=== PATIENT | female | born 1940 | race Caucasian/White ===

== ENCOUNTER 2016-11-24 16:43 | Inpatient (IN) | payer OTHER, MEDICAID ==
[~2016-11-24] VITALS: Ht 167.6 cm; Wt 83.0 kg
--- NOTE | 2016-11-24 17:21 | REP ---
Clinical: Altered mental status . Findings: Age-related atrophy and microvascular ischemic changes are appreciated. The ventricles and sulci are symmetric. Aguero-white differentiation is maintained. There is no evidence for acute intracranial hemorrhage, mass/mass effect, pathology or infarction. No extra-axial fluid collection. Calvarium is intact. Paranasal sinuses and mastoid air cells are clear. Impression: Age related atrophy and microvascular ischemic changes. No acute intracranial hemorrhage, infarction, or mass/mass effect. Signed by Alvaro Gann MD 11/24/2016 05:12 P
--- NOTE | 2016-11-24 17:33 | REP ---
Clinical: Altered mental status. Comparison: None. Findings: Evidence of prior sternotomy and CABG. Cardiac silhouette is normal. Atherosclerotic changes to the thoracic aorta noted. Lung waldrop demonstrate chronic interstitial changes and findings to suggest mild chronic pulmonary vascular congestion. No acute consolidation, effusion, or pneumothorax. Skeletal structures intact. Impression: Chronic-appearing changes. No obvious acute cardiopulmonary process. Signed by Alvaro Gann MD 11/24/2016 05:24 P
[2016-11-24 17:52] LABS: BASO # 0.1 K/mm3 (0.0-0.2); BASO % 0.9 % (0.0-1.0); EOS # 0.2 K/mm3 (0.0-0.50); EOS % 2.2 % (0.0-3.0); LARGE UNSTAINED CELL # 0.3 K/mm3 (0.0-0.4); LARGE UNSTAINED CELL % 3.7 % (0.0-4.0); LYMPH # 2.6 K/mm3 (1.5-4.5); LYMPH % 26.8 % (24.0-44.0); MEAN CORPUSCULAR HEMOGLOBIN 31.9 pg (27.0-33.0); MEAN CORPUSCULAR HGB CONC 33.8 g/dl (32.0-36.5); MEAN CORPUSCULAR VOLUME 94.3 fl (80.0-96.0); MONO # 0.7 K/mm3 (0.0-0.8); MONO % 8.5 % (0.0-5.0); NEUTROPHILS % 57.9 % (36.0-66.0); PLATELET COUNT, AUTOMATED 298 k/mm3 (150-450); RED CELL DISTRIBUTION WIDTH 13.8 % (11.5-14.5); WHITE BLOOD COUNT 8.6 K/mm3 (4.0-10.0)
[2016-11-24 18:21] LABS: ALBUMIN 3.4 GM/DL (3.2-5.2); ALBUMIN/GLOBULIN RATIO 0.72 (1.00-1.93); ALKALINE PHOSPHATASE 91 U/L (45-117); ALT/SGPT 29 U/L (12-78); ANION GAP 11 MEQ/L (8-16); AST/SGOT 26 U/L (15-37); BILIRUBIN,DIRECT < 0.1 MG/DL (0.0-0.2); BILIRUBIN,TOTAL 0.2 MG/DL (0.2-1.0); BLOOD UREA NITROGEN 89 MG/DL (7-18); CALCIUM LEVEL 10.6 MG/DL (8.8-10.2); CARBON DIOXIDE LEVEL 36 MEQ/L (21-32); CHLORIDE LEVEL 87 MEQ/L (98-107); CREATININE FOR GFR 4.66 MG/DL (0.55-1.02); GLOMERULAR FILTRATION RATE 9.7 (>39); GLUCOSE, FASTING 309 MG/DL (83-110); SODIUM LEVEL 134 MEQ/L (136-145); TOTAL PROTEIN 8.1 GM/DL (6.4-8.2)
[2016-11-24 19:10] LABS: MAGNESIUM LEVEL 2.7 MG/DL (1.8-2.4)
[2016-11-24] MEDS ORDERED: GABAPENTIN 100 MG CAP As Ordered ONE (19:53)
[2016-11-24] MEDS ORDERED: LORazepam 1 MG TAB As Ordered ONE (19:54)
[2016-11-24] MEDS ORDERED: PLAV75TA38 PO (20:43)
[2016-11-24] MEDS ORDERED: MAGN400T5 PO (20:43)
[2016-11-24] MEDS ORDERED: ASPI1TAB PO (20:43)
[2016-11-24] MEDS ORDERED: AMLO10TA2 PO (20:43)
[2016-11-24] MEDS ORDERED: METO25TA PO (20:43)
[2016-11-24] MEDS ORDERED: GABA-279 PO (20:43)
[2016-11-24] MEDS ORDERED: LASI40TA PO (20:43)
[2016-11-24] MEDS ORDERED: CARV6.25 PO (20:43)
[2016-11-24] MEDS ORDERED: INSUH10VL SC (20:43)
[2016-11-24] MEDS ORDERED: CALC1CAP31 PO (20:43)
[2016-11-24] MEDS ORDERED: POTA10CA PO (20:43)
[2016-11-24] MEDS ORDERED: INSULANT SC (20:43)
[2016-11-24] MEDS ORDERED: CLON0.5T PO (20:49)
[2016-11-24] MEDS ORDERED: FAMO1TAB11 PO (20:49)
[2016-11-24] MEDS ORDERED: MIRA33504 PO (20:49)
[2016-11-24] MEDS ORDERED: ATOR1TAB19 PO (20:49)
[2016-11-24] MEDS ORDERED: VITA100066 PO (20:49)
[2016-11-24] MEDS ORDERED: HYDR-4266 PO (20:49)
[2016-11-24] MEDS ORDERED: ALBU17IN INH (20:49)
[2016-11-24] MEDS ORDERED: CYMB1CAP5 PO (20:49)
[2016-11-24] MEDS ORDERED: DEXTROSE 50% 50 ML SYRINGE IV PRN (21:30)
[2016-11-24] MEDS ORDERED: POTASSIUM CHLORIDE 10 MEQ SR TABLET PO ONE (21:30)
[2016-11-24] MEDS ORDERED: CIPROFLOXACIN 250 MG TAB PO ONE (21:30)
[2016-11-24] MEDS ORDERED: GLUCAGON FOR INJ 1 MG VIAL (J1610) SC PRN (21:30)
[2016-11-24] MEDS ORDERED: GLUCOSE 4 GM CHEW TABLET PO PRN (21:30)
[2016-11-24 22:30] VITALS: BP 185/75
--- NOTE | 2016-11-24 23:29 | HPE ---
DATE OF ADMISSION: 11/24/2016 PRIMARY CARE PHYSICIAN: Dr. Kelley VENDING MACHINE ASSEMBLER: Dr. Kelley CHIEF COMPLAINT: "I have been sick with some kind of virus for the past 9 days. " HISTORY OF THE PRESENT ILLNESS: A 76-year-old female with a history of chronic kidney disease, stage V, with right AV fistula, not on hemodialysis, hypertension, hypercholesterolemia, diabetes, depression, coronary artery disease, myocardial infarction (MD), transient ischemic attack (TIA), tonsillectomy, appendectomy, adenoidectomy, right AV arm fistula, coronary artery bypass graft (CABG), presents to the emergency room, sent by Dr. Kelley due to increased lethargy, abdominal pain, dysuria, urgency and frequency, left lower quadrant abdominal pain and complaints of myalgias for the past 9 days. The patient's neighbor had similar symptoms and was given aspirin by his primary care physician. The patient states that her abdominal pain is in the left lower quadrant, radiation across the back. She has been having dysuria, urgency, frequency for the past 3 days. No fever or chills. "I caught some kind of virus in town. I called the hospital three times." "A week ago I was having diarrhea, " on and off, 3-4 times a day and stomach pains, decrease in appetite, no decrease in oral intake. The patient was found to have some lactic acidosis at 2.1. At her baseline, creatinine is stage V. No white count. Slightly hypokalemic. Urinalysis (UA) was negative for leukocyte esterase, positive for nitrites, 7 WBCs and 1+ bacteria. Imaging study: Chest x-ray showed chronic appearing changes, no acute cardiopulmonary process. The patient's diarrhea has subsided. CT of the head shows no acute intracranial hemorrhage, infarct or mass effect. Hospitalist service was called for evaluation of increased lethargy, abdominal pain and altered mental status. PAST MEDICAL HISTORY: Chronic kidney disease, stage V. Right AV arm fistula. Hypercholesterolemia. Hypertension. Diabetes. Depression. TIA. Coronary artery disease. MD. Renal failure without dialysis. PAST SURGICAL HISTORY: Coronary artery bypass graft (CABG). Tonsillectomy. Adenoidectomy. Appendectomy. Fistula in the right arm. ALLERGIES: CODEINE, PENICILLIN causing hives. HOME MEDICATIONS: - Coreg 6.25 mg twice a day - metolazone 2.5 mg daily - potassium 20 mEq daily - amlodipine 10 mg daily - calcitriol 0.25 mcg daily - Lasix 40 mg twice a day, two tablets - aspirin 81 mg daily - magnesium oxide 400 mg daily - Lantus insulin 75 units daily - Plavix 75 mg daily - gabapentin 100 mg twice a day - Novolin R subcu 35 units three times a day with meals - Ventolin two puffs every 4-6 hours as needed - Tylenol 500 mg 1-2 tablets as needed - MiraLAX 17 grams as needed - clonazepam 0.5 mg twice a day - Cymbalta 30 mg daily - atorvastatin 10 mg daily - famotidine 20 mg twice a day - hydralazine 10 mg twice a day - vitamin D 5000 units daily SOCIAL HISTORY: Lives alone. Health care proxy: Alfa Mike. The patient states that she would not want intubation, do not intubate. No Medical Orders for Life-Sustaining Treatment (MOLST) form was signed. LIMITED DO NOT RESUSCITATE, trial of cardiopulmonary resuscitation. The patient is a former smoker. No alcohol use. Lives alone. REVIEW OF SYSTEMS: Per history of the present illness. Twelve point system otherwise negative. PHYSICAL EXAMINATION: Blood pressure 167/72, pulse 62, sinus, respiratory rate 18, temperature 97, pulse oximetry 100% on room air, 72.57 kg, 5 feet 6 inches tall. Generally, awake, alert, oriented to person and place, able to provide some history, disoriented to time, answering questions appropriately. Pupils are round and reactive. Extraocular muscles are intact. Face is symmetric. No jugular venous distention. No thyromegaly. Mid sternal scar, well healed. Lungs are clear to auscultation. No wheezing, rales, or rhonchi. Heart: S1, S2, sinus rhythm. Abdomen is soft, nontender, nondistended. Extremities: Trace edema. Skin: Warm and dry, well perfused. Neurological: Awake, alert, oriented to person and place, answering questions appropriately. Speech is fluent. Motor function is 5 out of 5 times four extremities. No sensory disturbance. White count 8.6, hemoglobin 12, hematocrit 37, platelet count 298, 57% neutrophils. Sodium 134, potassium 3, chloride 87, bicarbonate 36, BUN 89, creatinine 4.66, glucose 309, lactic acid 2.1, calcium of 10.6, magnesium 2.7, total CK 231, MB fraction 3.5, troponin 0.04, total protein 8.1, albumin 3.4, TSH of 2.01. Urine and blood cultures are pending. Chest x-ray: No acute cardiopulmonary process, chronic appearing changes. CT of the head: Age appropriate related atrophy. No acute hemorrhage, infarct, mass or mass effect. ASSESSMENT AND PLAN: This is a 76-year-old female with a history of transient ischemic attack, coronary artery disease, myocardial infarction, coronary artery bypass graft, renal failure, depression, no hemodialysis with right AV arm fistula, tonsillectomy, adenoidectomy, hypertension, diabetes, presents after being seen at Dr. Kelley's office, sent to the emergency room for evaluation of increased lethargy, belly pain and confusion, headache. CT of the head was unremarkable. She was afebrile. Complained of some dysuria, urgency and frequency, admitted for possible urinary tract infection (UTI). The patient will be admitted as an inpatient for the following issues, assigned to Dr. Gato Aaron. IMPRESSION: 1.Altered mental status. May be multifactorial. Patient will be evaluated for infectious etiology due to complaints of dysuria, abdominal pain. Will obtain a CT of the abdomen and pelvis and treat presumptively for urinary tract infection (UTI) with Cipro, renal dosing 250 mg twice a day. 2. end-stage renal disease, the patient is currently at baseline. Right AV arm fistula. Monitor intake and output, daily weight and consult nephrology in the morning.Chronic kidney disease, stage V, not on hemodialysis. Consult Dr. Kelley in the morning for chronic management. 3.Electrolyte abnormalities with low potassium. The patient will be given potassium supplementation. 4.Type 2 diabetes. Consistent carbohydrate diet. Insulin sliding scale. 5.Hypertension. Controlled. Continue amlodipine, Lasix. 6.History of coronary artery disease, coronary artery bypass graft. Continue on Plavix. 7.Hyperlipidemia. Continue on atorvastatin. 8.Diarrhea: GI panel. gentle fluid hydration. if negative GI panel, may give loperamide. Deep vein thrombosis (DVT) prophylaxis. On chronic Plavix. Continue with compression stockings. The patient will be admitted to Dr. Gato Aaron, hospitalist service, at 7:00 a.m. on 11/25/2016. [facility]
[2016-11-25] VITALS: BP 126/60; PULSE 54
[2016-11-25] MEDS ORDERED: POTASSIUM CHLORIDE 10 MEQ SR TABLET As Ordered ONE
[2016-11-25] MEDS: NS 1,000 ML IV SCH ×2 (00:05→13:40)
[2016-11-25 04:00] VITALS: BP 159/70; PULSE 54
--- NOTE | 2016-11-25 04:10 | REPUSA ---
CLINICAL HISTORY: Abdominal pain. TECHNIQUE: Multiple axial, sagittal and coronal CT images were obtained through the abdomen and pelvi s without administration of oral or IV contrast material. COMMENTS: Diffuse thickening of the wall of the bladder. Moderate large bowel fecal stasis. Uncomplicated clonic diverticulosis. Heavily calcified mitral valve. The liver is mildly enlarged without mass or defect. There is no intra or extrahepatic biliary ductal dilatation. The spleen is normal. The gallbladder is within normal limits. The pancreas is of normal contour and attenuation characteristics. There is no evidence of adrenal mass. The kidneys are normal in size, shape and configuration. No renal or ureteral calculi are identified. There is no hydroureter or hydronephrosis. There is no evidence for appendicitis. There is no bowel wall thickening. No evidence for small or la rge bowel obstruction. There is no evidence of abdominal ascites or lymphadenopathy. There is no evidence of intrinsic or extrinsic bladder mass. There is no pelvic ascites or lymphadeno kayli. Images of the lung bases show no evidence of pleural or parenchymal mass. There are no pleural effusi ons. The bony structures are free of lytic or blastic lesions. Multilevel degenerative changes are seen in volving the thoracolumbar spine. Scattered calcifications are seen involving the aorta and major branches compatible with atherosclero sis. IMPRESSION: Diffuse thickening of the wall of the bladder. Heavily calcified mitral valve. Moderate large bowel fecal stasis. Uncomplicated clonic diverticulosis. Thank you for your kind referral of this patient.
[2016-11-25] MEDS ORDERED: CIPROFLOXACIN 250 MG TAB PO SCH (06:00)
[2016-11-25 08:00] VITALS: BP 142/65
[2016-11-25] MEDS ORDERED: POTASSIUM CHLORIDE 10 MEQ SR TABLET PO SCH (09:00)
[2016-11-25] MEDS ORDERED: FUROSEMIDE 80 MG TAB PO SCH (09:00)
[2016-11-25] MEDS ORDERED: metOLazone 2.5 MG TAB PO SCH (09:00)
[2016-11-25] MEDS ORDERED: DULoxetine 20 MG CAP (CYMBALTA) PO SCH (09:00)
[2016-11-25] MEDS ORDERED: LEVEMIR (INSULIN DETEMIR) 1 UNITS/0.01ML SC SCH (09:00)
[2016-11-25] MEDS ORDERED: MAGNESIUM OXIDE 400 MG TAB (MAG-OX) PO SCH (09:00)
[2016-11-25] MEDS ORDERED: HEPARIN SOD (PORCINE) 5000 UNITS/ML VIAL SC SCH (09:00)
[2016-11-25 09:26] LABS: ALBUMIN 2.9 GM/DL (3.2-5.2); CALCIUM LEVEL 9.4 MG/DL (8.8-10.2); CREATININE FOR GFR 3.84 MG/DL (0.55-1.02); GLOMERULAR FILTRATION RATE 12.1 (>39); MAGNESIUM LEVEL 2.7 MG/DL (1.8-2.4); PHOSPHORUS LEVEL 4.7 MG/DL (2.5-4.9); POTASSIUM SERUM 3.5 MEQ/L (3.5-5.1)
[2016-11-25] MEDS ORDERED: HumaLOG INSULIN (NovoLOG) PER UNIT As Ordered ONE ×2 (09:51→12:57)
[2016-11-25] MEDS: HumaLOG INSULIN (NovoLOG) PER UNIT SC SCH ×4 (09:55→21:51)
--- NOTE | 2016-11-25 09:57 | ECGEPIP ---
Stationary ECG Study [facility] - ED Test Date: 2016-11-24 Pat Name: DEION JADE Department: Room: - Gender: F Reimbursement Coordinator: rubin : 1940 Requested By: Jennifer Robert Order Number: [id number] Reading MD: Jennifer Robert Measurements Intervals [place]der[place]ott Rate: 62 P: 47 MN: 169 QRS: 34 QRSD: 140 T: 21 QT: 476 QTc: 484 Interpretive Statements SINUS RHYTHM POSSIBLE LEFT ATRIAL ENLARGEMENT INTRAVENTRICULAR CONDUCTION DELAY LEFT VENTRICULAR HYPERTROPHY AND ST-T CHANGE VS ISCHEMIA INFERIOR MYOCARDIAL INFARCTION, PROBABLY OLD CLINICAL CORRELATION NO PRIOR FOR COMPARISON Electronically Signed On 11-25-2016 9:57:20 EST by Jennifer Robert
[2016-11-25] MEDS ORDERED: ALBUTEROL 90 MCG/ACT 8GM HFA INHALER INH PRN (10:30)
[2016-11-25] MEDS: CARVedilol 6.25 MG TAB PO SCH ×2 (11:57→21:51)
[2016-11-25] MEDS: GABAPENTIN 100 MG CAP PO SCH ×2 (11:59→21:52)
[2016-11-25 12:00] VITALS: BP 119/56
[2016-11-25] MEDS: amLODIPine 10 MG TAB PO SCH (12:01)
[2016-11-25] MEDS: VITAMIN D 1,000 INTERNATIONAL UNITS TABLET PO SCH (12:02)
[2016-11-25] MEDS: ASPIRIN 81 MG ENTERIC TAB PO SCH (12:02)
[2016-11-25] MEDS: CLOPIDOGREL 75 MG TAB PO SCH (12:02)
[2016-11-25] MEDS: FAMOTIDINE 20 MG TAB PO SCH ×2 (12:02→21:51)
[2016-11-25] MEDS: CALCITRIOL 0.25 MCG CAP (S0169) PO SCH (12:02)
[2016-11-25] MEDS: **hydrALAZINE HCL** 25 MG TAB PO SCH ×2 (12:03→21:52)
[2016-11-25] MEDS ORDERED: cefTRIAXone SOD 1 GM VIAL (J0696) As Ordered ONE (12:45)
[2016-11-25] MEDS: cefTRIAXone SOD 1 GM in D5W MINI-BAG PLUS 50 ML IV SCH (13:00)
[2016-11-25] MEDS: DULoxetine 30 MG CAP (CYMBALTA) PO SCH (13:04)
--- NOTE | 2016-11-25 13:24 | CR ---
DATE OF CONSULTATION: 11/25/2016 REQUESTING PHYSICIAN: Dr. Gato Aaron CONSULTING PHYSICIAN: Jose Roberto Hannah MD REASON FOR CONSULTATION: Management of acute kidney injury superimposed on chronic kidney disease, stage IV. CHIEF COMPLAINT: Patient was sent from the nephrology office yesterday because of confusion, dehydration and possible urinary tract infection. HISTORY OF PRESENT ILLNESS: Shanda Loco is a 76-year-old female with a past medical history of chronic kidney disease stage IV to at least stage V, history of right arm AV fistula, not started on dialysis yet, multiple other comorbidities including hypertension, diabetes, depression, coronary artery disease status post coronary artery bypass grafting (CABG), and other comorbidities as mentioned below. She presented to the clinic yesterday with increased lethargy, abdominal pain, dysuria, frequency and urgency with left lower quadrant abdominal pain, with muscle aches and pains. She also reported decreased appetite, poor oral intake, nausea and vomiting. She also reported having diarrhea about a week ago. The patient was also on a high dose of diuretics because of her lower extremity edema. The patient was presented to the emergency room for further management of possible UTI, dehydration, and volume depletion. She was admitted last night with acute kidney injury, started on IV fluid hydration and on IV antibiotics. Her preliminary blood cultures, gram stain is showing gram positive cocci in pairs, chains and clusters. She was found to have a BUN of 59 and creatinine of 4.6 on admission. The nephrology service was called for further management of acute kidney injury superimposed on chronic kidney disease. PAST MEDICAL HISTORY: Chronic kidney disease stage IV to early stage V. Hypertension. Diabetes mellitus type 2. Depression. History of transient ischemic attack (TIA). Coronary artery disease. History of myocardial infarction in the past. Hyperlipidemia. PAST SURGICAL HISTORY: Status post right upper arm AV fistula placement. Status post coronary artery bypass grafting. Status post tonsillectomy. Status post adenoidectomy. Status post appendectomy. ALLERGIES: 1. Patient is allergic to CODEINE. 2. PENICILLIN. HOME MEDICATIONS: Patient presented to the emergency room she was on: - Coreg 6.25 mg by mouth twice a day - metolazone 2.5 mg by mouth daily - potassium 20 mEq by mouth daily - amlodipine 10 mg by mouth daily - calcitriol 0.25 mcg by mouth daily - Lasix 80 mg by mouth twice a day - aspirin 81 mg daily - magnesium 400 mg daily - Lantus 75 units subcu daily - Plavix 75 mg daily - gabapentin 100 mg by mouth twice a day - Novolin R 35 units three times a day - Ventolin as needed - Tylenol as needed - MiraLAX 17 grams as needed - clonazepam 0.5 mg twice a day - Cymbalta 30 mg daily - atorvastatin 10 mg daily - famotidine 20 mg twice a day - hydralazine 10 mg twice a day - vitamin D 5000 units daily FAMILY HISTORY: No significant family history of end stage renal disease requiring hemodialysis. SOCIAL HISTORY: Patient lives alone. She is a former smoker. She denies any alcohol use or drug abuse. REVIEW OF SYSTEMS: CONSTITUTIONAL: Patient reported weakness, fatigue, being tired. EYES: She denies any blurry vision or double vision. ENT: She denies any dysphagia, odynophagia, or ear discharge. CARDIOVASCULAR: She denies any chest pain, palpitations. RESPIRATORY: She denies any cough or shortness of breath. GASTROINTESTINAL (GI): She reports a decreased appetite, nausea, vomiting and pain. GENITOURINARY (): She reports dysuria and increased frequency of the urine. HEMATOLOGIC/ONCOLOGIC: She denies any history of cancers. ENDOCRINE: She has a history of secondary hyperparathyroidism and diabetes mellitus type 2. PSYCH: She has a history of depression. SKIN: She denies any rashes or ulcers. All other review of systems is negative. PHYSICAL EXAMINATION: GENERAL: Patient is awake, alert and oriented times two, sitting in the bed in no apparent distress. VITAL SIGNS: Temperature is 96.6 degrees Fahrenheit. Blood pressure is 142/65. Pulse is 57. Respiratory rate of 18. Saturating 96% on nasal cannula. INTAKE AND OUTPUT: Urine output recorded so far since overnight is 1250 mL. Weight on the bed scale is 77.6 kg. HEAD/NECK EXAM: Extraocular muscles intact. Pupils equally round and reactive to light. Mucous membranes are moist. Neck is supple. There is no jugular venous distention (JVD). CARDIOVASCULAR: S1 and S2, regular rate. No murmur, rub or gallop. RESPIRATORY: Chest is clear to auscultation at the upper lung zones. Mild inspiratory crackles at the bases. Otherwise, no rhonchi. ABDOMEN: Soft. Positive bowel sounds. Mild tenderness in the left lower quadrant. No ascites. No organomegaly. EXTREMITIES: No clubbing or cyanosis. No edema. Pulses are 2+. FARMER GENERAL: No focal neurological deficit. Power is 5/5 in all extremities. SKIN: No rashes or ulcers. PSYCH: The patient is depressed at this time and tearful. LABORATORY REVIEW: CBC showed a WBC of 8.6, hemoglobin 12.5, platelets at 298. Urinalysis showed 2+ protein, 3+ glucose, positive nitrite. Leukocyte esterase was negative. BMP today morning showed sodium 140, potassium 3.5, chloride 93, bicarb 35, BUN 81, creatinine 3.84, which is better than yesterday, it was 4.6 yesterday. Lactic acid has improved to 1.3, it was 2.1 yesterday. Calcium is 9.4, phosphorous is 4.7, magnesium is 2.7, albumin is 2.9. Microbiology: Blood cultures preliminary gram stain showed gram positive cocci in pairs, chains and clusters. IMAGING: CAT scan of the abdomen and pelvis showed diffuse thickening of the wall of the bladder, heavily calcified mitral valve, moderate large bowel fecal stasis. Uncomplicated chronic diverticulosis. Chest x-ray done yesterday showed chronic abating changes. No obvious acute cardiopulmonary process. CURRENT INPATIENT MEDICATIONS: Patient is currently on: - Rocephin 1 gram IV every 24 hours - He is on NS at 60 mL an hour - Proventil as needed for shortness of breath - amlodipine 10 mg daily - aspirin 81 mg daily - Lipitor 10 mg at bedtime - calcitriol 0.25 mcg daily - Coreg 6.25 mg by mouth twice a day - ciprofloxacin has been stopped - Klonopin for anxiety - Plavix 75 mg by mouth daily - Cymbalta 30 mg by mouth daily - Pepcid 20 mg by mouth twice a day - She was on Lasix 80 mg by mouth twice a day, which I am stopping right now. - gabapentin 100 mg by mouth twice a day - hydralazine 25 mg by mouth twice a day - insulin sliding scale - She is magnesium oxide 400 mg by mouth daily, which is being stopped right now. - She was also on metolazone 2.5 mg by mouth daily, which is being stopped now. - Zofran 4 mg IV every 6 hours as needed nausea/vomiting - She got a dose of potassium chloride 40 mEq by mouth one dose last night. - She is on potassium chloride 10 mEq by mouth twice a day, which I am stopping because she is no longer on diuretics at this time. ASSESSMENT: 76-year-old female with past medical history of at late stage IV chronic kidney disease, hypertension, coronary artery disease, depression, diabetes mellitus type 2, hypertension, admitted this time because of confusion and dehydration, and acute kidney injury superimposed on chronic kidney disease stage IV. PLAN: 1. Metabolic encephalopathy, multifactorial, secondary to uremia, volume depletion and infection. Hold all the diuretics at this time. Continue gentle IV fluid hydration with NS at 60 mL an hour. The patient is growing gram positive cocci in pairs, chains and clusters. She has been started on IV Rocephin. Followup the culture and sensitivity and taper antibiotics as needed. 2. Acute kidney injury superimposed on chronic kidney disease, stage IV to at least stage V. Most likely secondary to dehydration and volume depletion. Torsemide and metolazone have been stopped. The patient is being hydrated. Her creatinine did show an improvement from 4.6 to 3.8 since overnight. Continue to monitor daily weight and intake and output. 3. Gram positive cocci bacteremia. Initial gram stain showed gram positive cocci. Full cultures are pending. She has been started on ceftriaxone. If needed, patient can be given a dose of vancomycin as well. 4. Hypertension. Blood pressure is acceptable at this time. Continue current dose of amlodipine 10 mg by mouth daily and Coreg 6.25 mg by mouth twice a day. 5. Depression and anxiety. Continue current dose of antidepressant medications. 6. Diabetes mellitus type 2. Continue the insulin sliding scale. Levemir has been stopped because the patient has a poor appetite at this time. 7. Constipation. The patient's CAT scan showed retention of stool in the colon. There was no diverticulitis. I am going to start the patient on lactulose and give her soap suds enemas as well. 8. Hyponatremia. Hyponatremia was secondary to volume depletion. Sodium has improved to 140 after IV fluid hydration. 9. Hypokalemia. Hypokalemia was secondary to aggressive diuresis. Diuretics have been held. Patient was given potassium overnight. Potassium level is 3.5, which is acceptable right now. I am stopping the daily potassium dose at this time. 10. Hypermagnesemia. It is secondary to chronic kidney disease and she is on oral magnesium as well. Hold magnesium and magnesium level will improve with IV fluid hydration and further improvement in the renal function. Thank you for involving us in the care of this patient. We shall be happy to follow the patient along with you tomorrow morning. Plan of care was discussed with the hospitalist team, Dr. Gato Aaron. MOS[facility]
--- NOTE | 2016-11-25 13:56 | IPNPDOC ---
Subjective Date Seen The patient was seen on 11/25/16. Subjective Chief Complaint/HPI The patient is a 76-year-old female admitted with a reason for visit of Altered Mental State. General: Reports: Malaise, Normal Appetite (poor appetite secondary to nausea) , Denies: Chills, Fatigue, Night Sweats, Other Symptoms, ROS Unobtainable Constitutional: Reports: Malaise, Denies: Chills, Fatigue, Fever, Lethargy, Night Sweats, Other, Weakness, Weight Loss Eyes: Denies: Conjunctivae inflammation, Eyelid inflammation, Other, Pain, Redness, Vision change ENT: Denies: Dysphagia, Ear Pain, Epistaxis, Head Aches, Other Symptoms, Post Nasal Drip, Sinus Congestion, Sore Throat Skin: Denies: Breakdown, Bruising, Dry, Itching, Jaundice, Lesions, Nail Changes, Other, Rash Pulmonary: Reports: Cough, Denies: Dyspnea, Other Symptoms, Pleuritic Chest Pain Cardiovascular: Denies: Chest Pain, Edema, Lt Headedness, Orthopnea, Other Symptoms, Palpitations, Paroxysmal Noc. Dyspnea Gastrointestinal: Reports: Nausea, Denies: Abdominal Pain, Constipation, Diarrhea, Hematochezia, Melena, Other Symptoms, Vomiting Genitourinary: Reports: Dysuria, Frequency, Denies: Hematuria, Incontinence, Other Symptoms, Retention Objective Physical Examination General Exam: Positive: Alert, Cooperative, Mild Distress Eye Exam: Positive: Conjunctiva & lids normal, EOMI, PERRLA, Negative: Sclera icteric ENT Exam: Positive: Atraumatic, Mucous membr. moist/pink Neck Exam: Positive: Supple Chest Exam: Positive: Normal air movement, Other (bibasilar crepitus) Heart Exam: Positive: Rate Normal, Regular Rhythm Telemetry: Positive: No significant arrhythmia, Sinus Abdomen Exam: Positive: Normal bowel sounds, Soft, Negative: Tenderness Extremity Exam: Negative: Edema Psych Exam: Negative: Oriented x 3 Assessment /Plan Problems (1) Altered mental status Status: Acute Response to Treatment: Progressing Discussed With: Patient Problem Specific Plan: Monitor Clinically, Repeat Labs Problem Text: Multifactorial etiology. Likely toxic metabolic encephalopathy secondary to UTI complicated with uremia, further complicated with her multiple medical co-morbidities. (2) CKD (chronic kidney disease) Status: Acute Problem Specific Plan: Consult Specialist, Repeat Labs Problem Text: acute on chronic, baseline is CKD V, not on dialysis. Does have right AV fistula if needed. IV fluids, nephrology consultation appreciated. diuretics on hold (lasix, metolazone) (3) UTI (urinary tract infection) Status: Acute Discussed With: Patient Problem Specific Plan: Monitor Clinically, Repeat Labs Problem Text: Ceftriaxone Cultures pending (4) Positive blood culture Status: Acute Response to Treatment: Progressing Problem Specific Plan: Monitor Clinically, Repeat Labs Problem Text: Repeat cultures pending. Will administer vancomycin x 1. (5) HTN (hypertension) Status: Chronic Problem Specific Plan: Monitor Clinically Problem Text: norvasc, coreg, hydralazine with hold parameters. (6) Hypercholesteremia Status: Chronic Problem Text: lipitor (7) Diabetes Status: Chronic Problem Specific Plan: Repeat Labs Problem Text: holding basal insulin continue with insulin sliding scale (8) Depression Status: Chronic Problem Specific Plan: Monitor Clinically Problem Text: continue cymbalta (9) CAD (coronary artery disease) Status: Chronic Problem Text: coreg, plavix, lipitor, asa (10) TIA (transient ischemic attack) Status: Chronic Problem Text: continue asa, plavix Plan/VTE VTE Prophylaxis Ordered?: Yes Plan IVF: Continue Diet: Continue Current Activity: Continue Current Medications: Replete Electrolytes IV, Replete Electrolytes PO, Start Antibiotics Diagnostics: Repeat Labs in AM, Obtain Cultures VS, I&O, 24H, Per Vital Signs/I&O Vital Signs Date Time Temp Pulse Resp B/P Pulse Ox O2 Delivery O2 Flow Rate FiO2 11/25/16 08:00 96.6 57 18 142/65 96 Nasal Cannula 2.0 I&O- Last 24 Hours up to 6 AM 11/25/16 06:00 Intake Total 180 ml Output Total 850 ml Balance -670 ml Laboratory Data 24H LABS Laboratory Tests 2 11/24/16 17:36: Lactic Acid (Sepsis) 2.1*H 11/24/16 17:38: Aspartate Amino Transf (AST/SGOT) 26, Alanine Aminotransferase (ALT/SGPT) 29, Alkaline Phosphatase 91, Total Bilirubin 0.2, Direct Bilirubin < 0.1, Albumin 3.4, Albumin/Globulin Ratio 0.72L, Anion Gap 11, White Blood Count 8.6, Red Blood Count 3.93L, Hemoglobin 12.5, Hematocrit 37.1, Mean Corpuscular Volume 94.3, Mean Corpuscular Hemoglobin 31.9, Mean Corpuscular Hemoglobin Concent 33.8 , Red Cell Distribution Width 13.8, Platelet Count 298, Neutrophils (%) (Auto) 57.9, Lymphocytes (%) (Auto) 26.8, Monocytes (%) (Auto) 8.5H, Eosinophils (%) ( Auto) 2.2, Basophils (%) (Auto) 0.9, Neutrophils # (Auto) 5.0, Lymphocytes # ( Auto) 2.6, Monocytes # (Auto) 0.7, Eosinophils # (Auto) 0.2, Basophils # (Auto) 0.1, Calcium Level 10.6H, Creatine Kinase MB 3.5, Creatine Kinase MB Relative Index 1.51, Glomerular Filtration Rate 9.7L, Large Unclassified Cells # 0.3, Large Unclassified Cells % 3.7, Magnesium Level 2.7H, Thyroid Stimulating Hormone (TSH) 2.010, Total Creatine Kinase 231H, Total Protein 8.1, Troponin I 0.04 11/24/16 17:50: Urine Amorphous Sediment , Urine Appearance CLEAR, Urine Color YELLOW, Urine pH 7.0, Urine Specific [place] 1.008, Urine Protein 2+H, Urine Glucose (UA) 3+H, Urine Ketones NEGATIVE, Urine Urobilinogen 0.2, Urine Bilirubin NEGATIVE, Urine Leukocyte Esterase NEGATIVE, Urine Bacteria (Auto) 1+H, Urine Blood NEGATIVE, Urine Calcium Carbonate Cryst(Auto) , Urine Calcium Oxalate Cryst (Auto) , Urine Calcium Phosphate Annette (Auto) , Urine Cellular Casts , Urine Cystine Crystals , Urine Granular Casts (Auto) , Urine Hyaline Casts (Auto) 0, Urine Leucine Crystals , Urine Mucus (Auto) , Urine Nitrite POSITIVE, Urine Oval Fat Bodies (Auto) , Urine RBC (Auto) 0, Urine Renal Epithelial Cells , Urine Sperm ( Auto) , Urine Squamous Epithelial Cells 2, Urine Transitional Epithelial Cells , Urine Trichomonas (Auto) , Urine Triple Phosphate Cryst (Auto) , Urine Tyrosine Crystals , Urine Uric Acid Crystals (Auto) , Urine WBC (Auto) 7H, Urine Waxy Casts (Auto) , Urine Yeast-Like Cells (Auto) 11/25/16 06:18: Bedside Glucose (Misc Panel) 136H 11/25/16 08:57: Albumin 2.9L, Blood Urea Nitrogen 81H, Creatinine 3.84H, Sodium Level 140, Potassium Level 3.5, Chloride Level 93L, Carbon Dioxide Level 35H, Anion Gap 12 , Calcium Level 9.4, Glomerular Filtration Rate 12.1L, Lactic Acid (Sepsis) 1.3 , Magnesium Level 2.7H, Phosphorus Level 4.7 CBC/BMP Laboratory Tests 11/24/16 17:38 Red Blood Count 3.93 L, Mean Corpuscular Volume 94.3, Mean Corpuscular Hemoglobin 31.9, Mean Corpuscular Hemoglobin Concent 33.8, Red Cell Distribution Width 13.8, Neutrophils (%) (Auto) 57.9, Lymphocytes (%) (Auto) 26.8, Monocytes (%) (Auto) 8.5 H, Eosinophils (%) (Auto) 2.2, Basophils (%) ( Auto) 0.9, Neutrophils # (Auto) 5.0, Lymphocytes # (Auto) 2.6, Monocytes # (Auto ) 0.7, Eosinophils # (Auto) 0.2, Basophils # (Auto) 0.1 11/25/16 08:57 Anion Gap 12 Microbiology Microbiology 11/24/16 Blood Culture, Received Pending 11/24/16 Blood Culture, Received Pending 11/24/16 Urine Culture, Received Pending ARLEY ROJO MD Nov 25, 2016 10:18
[2016-11-25] MEDS ORDERED: VANCOMYCIN HCL 1,000 MG, VIAL MATE ADAPTER 1 EACH in D5W 250 ML IV ONE (14:00)
[2016-11-25 14:20] VITALS: BP 138/62
--- NOTE | 2016-11-25 14:24 | PHACANCOPD ---
PHARMACY VANCOMYCIN DOSING Pt Demographics Demographics Patient Age:76 , Weight:77.600 , Gender: female Adjusted Body Weight Date: 11/25/16, Adjusted Body Weight: Kg Events Past 24 Hours Events Past 24 Hours: YES: Change in CrCl, NO: Dialysis, Diuretic Therapy, Elevation in WBC, Fever, Other, Pending Diagnostics, Pending Procedures Vancomycin Vancomycin indication: bacteremia Vancomycin Target Ranges: 15-20 mcg/ml Vancomycin Load Y/N: Yes Load Dose Date Time Vancomycin Load Dose: 1000mg Date: 11/25 Time: ~14:30 Vancomycin Dose Date: 11/25/16. Current Vancomycin Dose: [500mg IV q48h @10] Intermittent Dosing?: No Labs Labs Item Value Date Time White Blood Count 8.6 K/mm3 11/24/16 1738 Lactic Acid (Sepsis) 2.1 MMOL/L *H 11/24/16 1736 Lactic Acid (Sepsis) 1.3 MMOL/L 11/25/16 0857 Creatinine 4.66 MG/DL H 11/24/16 1738 Creatinine 3.84 MG/DL H 11/25/16 0857 Micro Microbiology 11/24/16 Blood Culture - Preliminary, Resulted 11/24/16 Blood Culture - Preliminary, Resulted 11/24/16 Urine Culture, Received Pending Creatinine Clearance Date:11/25/16. Creatinine Clearance: [12 ml/min]. Assessment and Plan Maintaining Current Dose?: Yes Reason for dose change: No Dose Change Pharmacist Note Pharmacist Note Date: 11/25/16. Pharmacist note: pt has been started on vancomycin for G+ bacteremia. She has stage V CKD, SCr is improved from yesterday. She has not been on vancomycin IV at our facility in the past. She will receive a 1g dose this afternoon and I will start 500mg q48h tomorrow morning. We will continue to monitor. Carlyle Parmar Pharm.D. Nov 25, 2016 14:24
--- NOTE | 2016-11-25 14:30 | EDDOCDS ---
Nurse's Notes [facility] Name: Deion Jade Age: 76 yrs Sex: Female : 1940 Arrival Date: 11/24/2016 Time: 16:43 Bed Admit Hold Private MD: Diagnosis: Altered mental status, unspecified;Unspecified kidney failure Presentation: 11/24 16:51 Presenting complaint: EMS states: Sick for 9 days, increased lethargy, belly pain, MACE. ck1 Adult Sepsis Screening: Patient has new or worsening altered mentation (1 point). Patient's respiratory rate is less than 22. Systolic blood pressure is greater than 100. Patient has a qSOFA score of 1- Negative Sepsis Screen. Suicide/Homicide risk assessment- the patient denies having any suicidal and/or homicidal ideations and does not present with any other emotional, behavioral or mental health complaints. Status: Patient is not a food service sales representatives or dependent. Transition of care: patient was received from [facility]. Care prior to arrival: Glucose check. 353. 16:51 Acuity: EREN Level 3 ck1 16:51 Method Of Arrival: Ambulance ck1 Triage Assessment: 17:20 General: Appears in no apparent distress, comfortable, Behavior is appropriate for age, ck1 cooperative. Pain: Location: right leg and left leg Pain currently is 8 out of 10 on a pain scale. Neurological: Level of Consciousness is awake, alert, Oriented to person, place, time. Cardiovascular: Rhythm is sinus rhythm. Respiratory: Respiratory effort is unlabored, Respiratory pattern is regular, symmetrical. Derm: Skin is pink, warm & dry. Musculoskeletal: Circulation, motion, and sensation intact Range of motion intact in all extremities. Historical: - Allergies: Codeine Sulfate; PENICILLINS; - Home Meds: 1. carvedilol 6.25 mg oral tab 1 tab 2 times per day 2. metolazone 2.5 mg oral tab 1 tab once daily 3. potassium chloride 20 mEq Oral TbER 1 tab once daily 4. amlodipine 10 mg Oral tab 1 tab once daily 5. calcitriol 0.25 mcg oral cap 1 cap once daily 6. Lasix 40 mg Oral tab 2 tabs 2 times per day 7. aspirin 81 mg Oral tab 1 tab once daily 8. magnesium oxide 400 mg Oral tab 400 mg daily 9. Lantus 100 unit/mL Sub-Q crtg daily 75 units 10. Plavix 75 mg Oral tab 1 tab once daily 11. gabapentin 100 mg Oral tab twice a day 12. Novolin R Sub-Q 35 units TID with meals 13. Ventolin HFA 90 mcg/actuation Nebulizer HFAA 2 puffs every 4-6 hours PRN 14. Tylenol 500 mg Oral 1-2 tabs PO PRN 15. Miralax 17 gram/dose Oral powd once daily PRN 16. clonazepam 0.5 mg Oral tab 2 times per day PRN 17. Cymbalta 30 mg Oral cpDR 1 cap once daily 18. atorvastatin 10 mg oral tab 1 tab once daily 19. famotidine 20 mg Oral tab 1 tab 2 times per day 20. hydralazine 10 mg Oral tab 1 tab 2 times per day 21. Vitamin D3 5,000 unit oral tab daily - PMHx: Hypercholesterolemia; Hypertension; Diabetes - IDDM: controlled; Depression; TIA; CT; Renal Failure w/o Dialysis; - PSHx: triple bypass; Tonsillectomy; Adenoidectomy; fistula placement right arm; - Social history: No barriers to communication noted, The patient speaks fluent Greenlandic, Speaks appropriately for age, Smoking status: Patient states former smoker of tobacco. - Family history: Not pertinent. - : The pt / caregiver states he / she is on anticoagulants: Plavix. Home medication list is obtained from the facility MAR. - Exposure Risk Screening:: None identified. Screenin:21 Screening information is obtained from the patient. Fall risk: At risk due to weakness. ck1 The following interventions are performed due to a positive Fall Risk Screen: Fall Risk is added to Special Handling on the patient Summary Screen. A Fall Risk Bracelet was applied to the patient. Side Rails are placed in the up position. A Call [place] is given with instruction to call for help when getting out of bed. Assistance ADL's: Requires assistance with meal preparation, this assistance is provided by Home Health Aides, bathing, assistance is provided by Home Health Aides, dressing, assistance is provided by Home Health Aides, toileting, assistance is provided by Home Health Aides, ambulation, assistance is provided by walker. housework, assistance is provided by Home Health Aides, medication administration, assistance is provided by Public Health nurses. Abuse/DV Screen: The patient / caregiver reports he/she is: not in a situation that causes fear, pain or injury. Nutritional screening: No deficits noted. Advance Directives: Currently, there is a health care proxy, Tiffany Mckeon (dtr). home support is adequate. Assessment: 17:22 General: see triage note. ck1 18:14 General: Appears in no apparent distress, to be sleeping. Behavior is appropriate for ck1 age, cooperative. Pain: Location: left leg and right leg. Neurological: Level of Consciousness is awake, alert, obeys commands, Oriented to person, place, time. Cardiovascular: Rhythm is sinus rhythm. Respiratory: Respiratory effort is even, unlabored, Respiratory pattern is regular, symmetrical. GI: No deficits noted. : Urine is cloudy. Derm: Skin is pink, warm & dry. 11/25 08:33 General: Appears rhythm note. SR/SB rate of 52 . [facility] Vital Signs: 11/24 16:38 Pulse 70 MON; Pulse Ox 95% ; ck1 16:39 BP 117 / 56 (auto/); ck1 16:54 BP 155 / 70 (auto/); ck1 16:56 BP 155 / 70; Pulse 61; Resp 18; Temp 97.0(O); Pulse Ox 98% on R/A; Weight 72.57 kg (R); nb2 Height 5 ft. 6 in. (167.64 cm) (R); Pain 7/10; 16:56 Pulse 60 MON; Pulse Ox 99% ; ck1 17:03 Pulse 62 MON; Pulse Ox 98% ; ck1 17:18 BP 164 / 67 (auto/); ck1 17:48 Pulse 66 MON; Pulse Ox 98% ; ck1 17:49 BP 167 / 71 (auto/); ck1 18:03 BP 167 / 72 (auto/); ck1 18:03 Pulse 62 MON; Pulse Ox 100% ; ck1 16:56 Body Mass Index 25.82 (72.57 kg, 167.64 cm) 2 Vitals: 16:56 Log In Time N/A - ambulance arrival. 2 ED Course: 16:45 Patient visited by Alexx Monson PCA. jrd 16:45 Patient moved to Waiting jrd 16:46 Mague Vizcaino,RN is Primary Nurse. jrd 16:46 Patient moved to 6 jrd 16:53 Triage Initiated ck1 16:56 Placed in gown. Bed in low position. Call light in reach. Side rails up X2. Cardiac nb2 monitor on. Pulse ox on. NIBP on. 17:22 The patient / caregiver is instructed regarding the plan of care and ED course. ck1 17:23 [facility] ke 17:24 Patient visited by Felix Davis FNP. ke 17:24 Patient visited by Felix Davis FNP. ke 17:25 CT Head Without Contrast Returned. EDMS 17:49 Patient visited by Felix Davis FNP. ke 17:51 Urine Culture Sent. ck1 17:51 UA Sent. ck1 17:52 BLOOD CULTURES Sent. ck1 17:52 Lactic Acid (Aguero tube on ice) Sent. ck1 17:52 Inserted saline lock: 20 gauge in left antecubital area and blood collected. The ck1 patient tolerated the procedure well. 18:01 Patient visited by Mechelle Arana. nb2 18:01 EKG done. (by ED staff). Reviewed by Felix FERNANDES. nb2 18:13 Patient visited by Mague Vizcaino RN. ck1 18:18 Chest, 1 View Returned. EDMS 18:43 Patient visited by Mague Vizcaino,NUNU. ck1 18:50 Primary Nurse role handed off by Mague Vizcaino,RN ck1 19:08 Patient visited by Felix Davis FNP. ke 19:10 Esha Waggoner,NUNU is Primary Nurse. cf2 19:10 Patient visited by Esha Waggoner RN. cf2 19:26 Notified nurse practitioner of lactic acid 2.1. sls1 19:29 Patient visited by Esha Waggoner,NUNU. cf2 19:53 Patient visited by Felix Davis FNP. ke 19:53 Maribell Jimenez is Hospitalizing Provider. ke 20:42 Patient name changed from Blitha\S\\S\Prashaw\S\ to Blitha\S\ \S\Prashaw. EDMS 20:42 Patient visited by Esha Waggoner,NUNU. cf2 20:43 [facility] Payment Agreement was scanned into [employer] and attached to record. ks16 21:20 Patient moved to Admit Hold sls1 22:21 Patient moved to 18 sls1 22:21 Patient moved to Admit Hold [facility] 11/25 04:11 CT ABD & PELVIS W/O CONTRAST Returned. EDMS 10:06 EKG-ADULT Returned. EDMS Administered Medications: 11/24 19:58 Drug: Gabapentin 300 mg [gabapentin 100 mg capsule (3 caps)] Route: PO; cf2 19:58 Drug: LORazepam 0.5 mg [lorazepam 1 mg tablet (0.5 tabs)] Route: PO; cf2 Order Results: Lab Order: CBC with Diff; SPEC'M 11/24/16 17:38 Test: WHITE BLOOD COUNT; Value: 8.6; Range: 4.0-10.0; Units: K/mm3; Status: F Test: RED BLOOD COUNT; Value: 3.93; Range: 4.00-5.40; Abnormal: Below low normal; Units: M/mm3; Status: F Test: HEMOGLOBIN; Value: 12.5; Range: 12.0-16.0; Units: g/dl; Status: F Test: HEMATOCRIT; Value: 37.1; Range: 36.0-47.0; Units: %; Status: F Test: MEAN CORPUSCULAR VOLUME; Value: 94.3; Range: 80.0-96.0; Units: fl; Status: F Test: MEAN CORPUSCULAR HEMOGLOBIN; Value: 31.9; Range: 27.0-33.0; Units: pg; Status: F Test: MEAN CORPUSCULAR HGB CONC; Value: 33.8; Range: 32.0-36.5; Units: g/dl; Status: F Test: RED CELL DISTRIBUTION WIDTH; Value: 13.8; Range: 11.5-14.5; Units: %; Status: F Test: PLATELET COUNT, AUTOMATED; Value: 298; Range: 150-450; Units: k/mm3; Status: F Test: NEUTROPHILS %; Value: 57.9; Range: 36.0-66.0; Units: %; Status: F Test: LYMPH %; Value: 26.8; Range: 24.0-44.0; Units: %; Status: F Test: MONO %; Value: 8.5; Range: 0.0-5.0; Abnormal: Above high normal; Units: %; Status: F Test: EOS %; Value: 2.2; Range: 0.0-3.0; Units: %; Status: F Test: BASO %; Value: 0.9; Range: 0.0-1.0; Units: %; Status: F Test: LARGE UNSTAINED CELL %; Value: 3.7; Range: 0.0-4.0; Units: %; Status: F Test: NEUTROPHILS #; Value: 5.0; Range: 1.8-7.7; Units: K/mm3; Status: F Test: LYMPH #; Value: 2.6; Range: 1.5-4.5; Units: K/mm3; Status: F Test: MONO #; Value: 0.7; Range: 0.0-0.8; Units: K/mm3; Status: F Test: EOS #; Value: 0.2; Range: 0.0-0.50; Units: K/mm3; Status: F Test: BASO #; Value: 0.1; Range: 0.0-0.2; Units: K/mm3; Status: F Test: LARGE UNSTAINED CELL #; Value: 0.3; Range: 0.0-0.4; Units: K/mm3; Status: F Lab Order: Cardiac Injury Profile; [facility]' 11/24/16 17:38 Test: CPK CREATINE PHOSPHOKINASE; Value: 231; Range: 26-192; Abnormal: Above high normal; Units: U/L; Status: F Test: CK-MB VALUE MASS; Value: 3.5; Range: 0.0-3.6; Units: NG/ML; Status: F Test: MB/CK RELATIVE INDEX; Value: 1.51; Range: < OR =4; Status: F Test Note: ; DIAGNOSIS CRITERIA MMB ng/ml Relative Index (RI) NON-AMI < or = 5 N/A AGUERO ZONE > 5 < or = 4 AMI > 5 > 4 Lab Order: Liver Profile; SPEC' 11/24/16 17:38 Test: AST/SGOT; Value: 26; Range: 15-37; Units: U/L; Status: F Test: ALT/SGPT; Value: 29; Range: 12-78; Units: U/L; Status: F Test: ALKALINE PHOSPHATASE; Value: 91; Range: 45-117; Units: U/L; Status: F Test: BILIRUBIN,TOTAL; Value: 0.2; Range: 0.2-1.0; Units: MG/DL; Status: F Test: BILIRUBIN,DIRECT; Value: < 0.1; Range: 0.0-0.2; Units: MG/DL; Status: F Test: TOTAL PROTEIN; Value: 8.1; Range: 6.4-8.2; Units: GM/DL; Status: F Test: ALBUMIN; Value: 3.4; Range: 3.2-5.2; Units: GM/DL; Status: F Test: ALBUMIN/GLOBULIN RATIO; Value: 0.72; Range: 1.00-1.93; Abnormal: Below low normal; Status: F Lab Order: MED Profile; [facility]' 11/24/16 17:38 Test: GLUCOSE, FASTING; Value: 309; Range: 83-110; Abnormal: Above high normal; Units: MG/DL; Status: F Test: BLOOD UREA NITROGEN; Value: 89; Range: 7-18; Abnormal: Above high normal; Units: MG/DL; Status: F Test: CREATININE FOR GFR; Value: 4.66; Range: 0.55-1.02; Abnormal: Above high normal; Units: MG/DL; Status: F Test: GLOMERULAR FILTRATION RATE; Value: 9.7; Range: >39; Abnormal: Below low normal; Status: F Test: SODIUM LEVEL; Value: 134; Range: 136-145; Abnormal: Below low normal; Units: MEQ/L; Status: F Test: POTASSIUM SERUM; Value: 3.0; Range: 3.5-5.1; Abnormal: Below low normal; Units: MEQ/L; Status: F Test: CHLORIDE LEVEL; Value: 87; Range: 98-107; Abnormal: Below low normal; Units: MEQ/L; Status: F Test: CARBON DIOXIDE LEVEL; Value: 36; Range: 21-32; Abnormal: Above high normal; Units: MEQ/L; Status: F Test: ANION GAP; Value: 11; Range: 8-16; Units: MEQ/L; Status: F Test: CALCIUM LEVEL; Value: 10.6; Range: 8.8-10.2; Abnormal: Above high normal; Units: MG/DL; Status: F Test Note: ; Units are mL/min/1.73 m2 Chronic Kidney Disease Staging per NKF: Stage I & II GFR >=60 Normal to Mildly Decreased Stage III GFR 30-59 Moderately Decreased Stage IV GFR 15-29 Severely Decreased Stage V GFR <15 Very Little GFR Left ESRD GFR <15 on DISTRIBUTION AGENT Lab Order: Thyroid Stimulating Hormone; SPEC11/24/16 17:38 Test: THYROID STIMULATING HORMONE; Value: 2.010; Range: 0.358-3.740; Units: uIU/ML; Status: F Lab Order: Troponin; SPEC11/24/16 17:38 Test: TROPONIN I; Value: 0.04; Range: < 0.10; Units: NG/ML; Status: F Test Note: ; Troponin I Reference Interval for [employer] LOCI: 99th Percentile= 0.00-0.045 ng/ml Risk Stratification: <= 0.10 ng/ml Decreased Risk for Adverse Clinical Events. 0.10-1.50 ng/ml Increased Risk for Adverse Clinical Events. Evaluation of additional criterion and/or repeat testing in 2-6 hours is suggested to rule out myocardial damage. >= 1.50 ng/ml Indicative of Myocardial Injury. Lab Order: -Blood Culture; SPEC11/24/16 17:41 Test: BLOOD CULTURE; Value: DATE POSITIVE DETECTED 11/25/16; Status: F Test: BLOOD CULTURE; Value: EXTERNAL GS (REQUIRED!!!) GRAM POSITIVE COCCI IN CLUSTERS; Status: F Lab Order: Lactic Acid (Aguero tube on ice); SPEC'11/24/16 17:36 Test: LACTIC ACID SEPSIS PROTOCOL; Value: 2.1; Range: 0.4-2.0; Abnormal: Above upper panic limits; Units: MMOL/L; Status: F Lab Order: UA; SPEC11/24/16 17:50 Test: APPEARANCE, URINE; Value: CLEAR; Range: CLEAR; Status: F Test: COLOR, URINE; Value: YELLOW; Range: YELLOW; Status: F Test: PH,URINE; Value: 7.0; Range: 5.0-9.0; Units: UNITS; Status: F Test: SPECIFIC GRAVITY URINE AUTO; Value: 1.008; Range: 1.002-1.035; Status: F Test: PROTEIN, URINE AUTO; Value: 2+; Range: NEGATIVE; Abnormal: Above high normal; Units: mg/dL; Status: F Test: GLUCOSE, URINE (UA) AUTO; Value: 3+; Range: NEGATIVE; Abnormal: Above high normal; Units: mg/dL; Status: F Test: KETONE, URINE AUTO; Value: NEGATIVE; Range: NEGATIVE; Units: mg/dL; Status: F Test: UROBILINOGEN, URINE AUTO; Value: 0.2; Range: 0.0-2.0; Units: mg/dL; Status: F Test: BILIRUBIN, URINE AUTO; Value: NEGATIVE; Range: NEGATIVE; Status: F Test: NITRITE, URINE AUTO; Value: POSITIVE; Range: NEGATIVE; Status: F Test: LEUKOCYTE ESTERASE, URINE AUTO; Value: NEGATIVE; Range: NEGATIVE; Status: F Test: BLOOD, URINE BLOOD; Value: NEGATIVE; Range: NEGATIVE; Status: F Test: WBC, URINE AUTO; Value: 7; Range: 0-3; Abnormal: Above high normal; Units: /HPF; Status: F Test: RBC, URINE AUTO; Value: 0; Range: 0-3; Units: /HPF; Status: F Test: BACTERIA, URINE AUTO; Value: 1+; Range: NEGATIVE; Abnormal: Above high normal; Status: F Test: SQUAMOUS EPITHELIAL CELL UR AU; Value: 2; Range: 0-6; Units: /HPF; Status: F Test: HYALINE CAST, URINE AUTO; Value: 0; Range: 0-1; Units: /LPF; Status: F Lab Order: BLOOD CULTURES; SPEC'M 11/24/16 17:38 Test: BLOOD CULTURE; Value: DATE POSITIVE DETECTED 11/25/16; Status: F Test: BLOOD CULTURE; Value: EXTERNAL GS (REQUIRED!!!); Status: F Test: BLOOD CULTURE; Value: GRAM POSITIVE COCCI IN PAIRS, CHAINS AND CLUSTERS; Status: F Test: BLOOD CULTURE; Value: GRAM STAIN CALLED BY JESU; Status: F Test: BLOOD CULTURE; Value: GRAM STAIN CALLED TO CL RB; Status: F Test: BLOOD CULTURE; Value: DATE GRAM STAIN CALLED 11/25/16; Status: F Test: BLOOD CULTURE; Value: TIME GRAM STAIN CALLED 1151; Status: F Lab Order: MAGNESIUM LEVEL; SPEC'M 11/24/16 17:38 Test: MAGNESIUM LEVEL; Value: 2.7; Range: 1.8-2.4; Abnormal: Above high normal; Units: MG/DL; Status: F Lab Order: Fingerstick Blood Sugar; [facility] 11/25/16 06:18 Test: BEDSIDE GLUCOSE; Value: 136; Range: 83-110; Abnormal: Above high normal; Units: MG/DL; Status: F Lab Order: RENAL PROFILE; [facility] 11/25/16 08:57 Test: GLUCOSE, FASTING; Value: 135; Range: 83-110; Abnormal: Above high normal; Units: MG/DL; Status: F Test: BLOOD UREA NITROGEN; Value: 81; Range: 7-18; Abnormal: Above high normal; Units: MG/DL; Status: F Test: CREATININE FOR GFR; Value: 3.84; Range: 0.55-1.02; Abnormal: Above high normal; Units: MG/DL; Status: F Test: GLOMERULAR FILTRATION RATE; Value: 12.1; Range: >39; Abnormal: Below low normal; Status: F Test: SODIUM LEVEL; Value: 140; Range: 136-145; Units: MEQ/L; Status: F Test: POTASSIUM SERUM; Value: 3.5; Range: 3.5-5.1; Units: MEQ/L; Status: F Test: CHLORIDE LEVEL; Value: 93; Range: 98-107; Abnormal: Below low normal; Units: MEQ/L; Status: F Test: CARBON DIOXIDE LEVEL; Value: 35; Range: 21-32; Abnormal: Above high normal; Units: MEQ/L; Status: F Test: ANION GAP; Value: 12; Range: 8-16; Units: MEQ/L; Status: F Test: CALCIUM LEVEL; Value: 9.4; Range: 8.8-10.2; Units: MG/DL; Status: F Test: PHOSPHORUS LEVEL; Value: 4.7; Range: 2.5-4.9; Units: MG/DL; Status: F Test: ALBUMIN; Value: 2.9; Range: 3.2-5.2; Abnormal: Below low normal; Units: GM/DL; Status: F Test Note: ; Units are mL/min/1.73 m2 Chronic Kidney Disease Staging per NKF: Stage I & II GFR >=60 Normal to Mildly Decreased Stage III GFR 30-59 Moderately Decreased Stage IV GFR 15-29 Severely Decreased Stage V GFR <15 Very Little GFR Left ESRD GFR <15 on DISTRIBUTION AGENT Lab Order: MAGNESIUM LEVEL; [facility] 11/25/16 08:57 Test: MAGNESIUM LEVEL; Value: 2.7; Range: 1.8-2.4; Abnormal: Above high normal; Units: MG/DL; Status: F Lab Order: LACTIC ACID LEVEL, LACTATE; [facility]11/25/16 08:57 Test: LACTIC ACID SEPSIS PROTOCOL; Value: 1.3; Range: 0.4-2.0; Units: MMOL/L; Status: F Lab Order: Fingerstick Blood Sugar; [facility]11/25/16 12:15 Test: BEDSIDE GLUCOSE; Value: 285; Range: 83-110; Abnormal: Above high normal; Units: MG/DL; Status: F Radiology Order: CT Head Without Contrast Test: CT Head Without Contrast REASON FOR EXAMINATION: altered; Clinical: Altered mental status .; ; Findings:; Age-related atrophy and microvascular ischemic changes are appreciated. The; ventricles and sulci are symmetric. Aguero-white differentiation is maintained.; There is no evidence for acute intracranial hemorrhage, mass/mass effect,; pathology or infarction. No extra-axial fluid collection. Calvarium is intact.; Paranasal sinuses and mastoid air cells are clear.; ; Impression:; Age related atrophy and microvascular ischemic changes.; No acute intracranial hemorrhage, infarction, or mass/mass effect.; ; ; Signed by; Alvaro Gann MD 11/24/2016 05:12 P; Radiology Order: Chest, 1 View Test: Chest, 1 View REASON FOR EXAMINATION: alterd; Clinical: Altered mental status.; ; Comparison: None.; ; Findings: Evidence of prior sternotomy and CABG. Cardiac silhouette is normal.; Atherosclerotic changes to the thoracic aorta noted. Lung waldrop demonstrate; chronic interstitial changes and findings to suggest mild chronic pulmonary; vascular congestion. No acute consolidation, effusion, or pneumothorax.; Skeletal structures intact.; ; Impression:; Chronic-appearing changes. 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; : 1940 Requested By: Jennifer Robert; Order Number: [id number] Reading MD: Jennifer Robert; Measurements; Intervals [place]; Rate: 62 P: 47; IN: 169 QRS: 34; QRSD: 140 T: 21; QT: 476; QTc: 484; Interpretive Statements; SINUS RHYTHM; POSSIBLE LEFT ATRIAL ENLARGEMENT; INTRAVENTRICULAR CONDUCTION DELAY; LEFT VENTRICULAR HYPERTROPHY AND ST-T CHANGE VS ISCHEMIA; INFERIOR MYOCARDIAL INFARCTION, PROBABLY OLD; CLINICAL CORRELATION; NO PRIOR FOR COMPARISON; Electronically Signed On 11-25-2016 9:57:20 EST by Jennifer Robert; Radiology Order: CT ABD & PELVIS W/O CONTRAST Test: CT ABD & PELVIS W/O CONTRAST REASON FOR EXAMINATION: LEFT LOWER QUADRANT ABD PAIN RADIATING TO BACK, DYSURIA; ; CLINICAL HISTORY: Abdominal pain.; TECHNIQUE: Multiple axial, sagittal and coronal CT images were obtained through the abdomen and pelvi; s without administration of oral or IV contrast material.; COMMENTS:; Diffuse thickening of the wall of the bladder.; Moderate large bowel fecal stasis.; Uncomplicated clonic diverticulosis.; Heavily calcified mitral valve.; The liver is mildly enlarged without mass or defect. There is no intra or extrahepatic biliary ductal; dilatation. The spleen is normal. The gallbladder is within normal limits. The pancreas is of normal; contour and attenuation characteristics. There is no evidence of adrenal mass.; The kidneys are normal in size, shape and configuration. No renal or ureteral calculi are identified.; There is no hydroureter or hydronephrosis.; There is no evidence for appendicitis. There is no bowel wall thickening. No evidence for small or la; rge bowel obstruction. There is no evidence of abdominal ascites or lymphadenopathy.; There is no evidence of intrinsic or extrinsic bladder mass. There is no pelvic ascites or lymphadeno; kayli.; Images of the lung bases show no evidence of pleural or parenchymal mass. There are no pleural effusi; ons.; The bony structures are free of lytic or blastic lesions. Multilevel degenerative changes are seen in; volving the thoracolumbar spine.; Scattered calcifications are seen involving the aorta and major branches compatible with atherosclero; sis.; IMPRESSION:; Diffuse thickening of the wall of the bladder.; Heavily calcified mitral valve.; Moderate large bowel fecal stasis.; Uncomplicated clonic diverticulosis.; Thank you for your kind referral of this patient.; ; Outcome: : CT Study completed. 19:54 Decision to Hospitalize by Provider. 11/25 14:28 Patient left the ED. dsf Signatures: Dispatcher [employer] EDMS Rodri Loo,RN RN k Felix Davis, MAGAZINE EDITOR MAGAZINE EDITOR Mague CarvajalRN RN ck1 Ligia HuberRN RN dsf Annel Zamora RN RN sls1 Alexx Monson, ADDICTIONS COUNSELOR ADDICTIONS COUNSELOR Moni Potter, Reg Reg ks16 Esha WaggonerRN RN cf2 Mechelle Arana2 Corrections: (The following items were deleted from the chart) 11/24 17:20 17:05 PMHx: Renal Failure with Dialysis; 17:20 17:05 PSHx: Unable to obtain; [facility] 19:01 18:50 MAGNESIUM LEVEL+LAB sent. [facility] EDTN MTDD
--- NOTE | 2016-11-25 14:30 | EDDOCDS ---
Physician Documentation [facility] Name: Shanda Loco Age: 76 yrs Sex: Female : 1940 Arrival Date: 11/24/2016 Time: 16:43 Bed Admit Hold Private MD: Disposition: 11/24/16 19:54 Hospitalization ordered by Maribell Jimenez for Inpatient Admission. Preliminary diagnosis are Altered mental status, unspecified, Unspecified kidney failure. - Bed requested for [facility] (Former[facility]). - Status is Inpatient Admission. dsf - Condition is Stable. - Problem is an ongoing problem. - Symptoms are unchanged. Historical: - Allergies: Codeine Sulfate; PENICILLINS; - Home Meds: 1. carvedilol 6.25 mg oral tab 1 tab 2 times per day 2. metolazone 2.5 mg oral tab 1 tab once daily 3. potassium chloride 20 mEq Oral TbER 1 tab once daily 4. amlodipine 10 mg Oral tab 1 tab once daily 5. calcitriol 0.25 mcg oral cap 1 cap once daily 6. Lasix 40 mg Oral tab 2 tabs 2 times per day 7. aspirin 81 mg Oral tab 1 tab once daily 8. magnesium oxide 400 mg Oral tab 400 mg daily 9. Lantus 100 unit/mL Sub-Q crtg daily 75 units 10. Plavix 75 mg Oral tab 1 tab once daily 11. gabapentin 100 mg Oral tab twice a day 12. Novolin R Sub-Q 35 units TID with meals 13. Ventolin HFA 90 mcg/actuation Nebulizer HFAA 2 puffs every 4-6 hours PRN 14. Tylenol 500 mg Oral 1-2 tabs PO PRN 15. Miralax 17 gram/dose Oral powd once daily PRN 16. clonazepam 0.5 mg Oral tab 2 times per day PRN 17. Cymbalta 30 mg Oral cpDR 1 cap once daily 18. atorvastatin 10 mg oral tab 1 tab once daily 19. famotidine 20 mg Oral tab 1 tab 2 times per day 20. hydralazine 10 mg Oral tab 1 tab 2 times per day 21. Vitamin D3 5,000 unit oral tab daily - PMHx: Hypercholesterolemia; Hypertension; Diabetes - IDDM: controlled; Depression; TIA; [place]; Renal Failure w/o Dialysis; - PSHx: triple bypass; Tonsillectomy; Adenoidectomy; fistula placement right arm; - Social history: No barriers to communication noted, The patient speaks fluent [place], Speaks appropriately for age, Smoking status: Patient states former smoker of tobacco. - Family history: Not pertinent. - : The pt / caregiver states he / she is on anticoagulants: Plavix. Home medication list is obtained from the facility DEC. - Exposure Risk Screening:: None identified. Vital Signs: 11/24 16:38 Pulse 70 MON; Pulse Ox 95% ; ck1 16:39 BP 117 / 56 (auto/); ck1 16:54 BP 155 / 70 (auto/); ck1 16:56 BP 155 / 70; Pulse 61; Resp 18; Temp 97.0(O); Pulse Ox 98% on R/A; Weight 72.57 kg / nb2 159.99 lbs (R); Height 5 ft. 6 in. (167.64 cm) (R); Pain 7/10; 16:56 Pulse 60 MON; Pulse Ox 99% ; ck1 17:03 Pulse 62 MON; Pulse Ox 98% ; ck1 17:18 BP 164 / 67 (auto/); ck1 17:48 Pulse 66 MON; Pulse Ox 98% ; ck1 17:49 BP 167 / 71 (auto/); ck1 18:03 BP 167 / 72 (auto/); ck1 18:03 Pulse 62 MON; Pulse Ox 100% ; ck1 16:56 Body Mass Index 25.82 (72.57 kg, 167.64 cm) nb2 MDM: 16:47 Atmospheric Scientist/Pulse Ox/q 15 min VS ordered. sd1 16:47 Accucheck ordered. sd1 16:47 IV Saline Lock ordered. sd1 16:47 Oxygen at 4L/Min NC or Home dosage ordered. sd1 16:47 Rhythm Strip to chart ordered. sd1 16:48 CBC with Diff Ordered. EDMS 16:48 Cardiac Injury Profile Ordered. EDMS 16:48 Liver Profile Ordered. EDMS 16:48 MED Profile Ordered. EDMS 16:48 Thyroid Stimulating Hormone Ordered. EDMS 16:48 Troponin Ordered. EDMS 16:49 Chest, 1 View Ordered. EDMS 16:49 CT Head Without Contrast Ordered. EDMS 16:49 ECG WITH READING ER PHYS+CARDIAG ordered. EDMS 17:36 -Blood Culture (Adults Only), peripheral from different site, or from device/port/PICC ke etc. if present ordered. 17:37 Lactic Acid (Aguero tube on ice) Ordered. EDMS 17:38 UA Ordered. EDMS 17:38 -Blood Culture Ordered. EDMS 17:38 Urine Culture Ordered. EDMS 17:47 -Blood Culture (Adults Only), peripheral from different site, or from device/port/PICC jrd etc. if present complete. 17:48 BLOOD CULTURES Ordered. EDMS 18:46 CBC with Diff Reviewed. ke 18:46 Cardiac Injury Profile Reviewed. ke 18:46 Liver Profile Reviewed. ke 18:46 MED Profile Reviewed. ke 18:46 UA Reviewed. ke 18:46 Thyroid Stimulating Hormone Reviewed. ke 18:46 Troponin Reviewed. ke 18:46 CT Head Without Contrast Reviewed. ke 18:46 Chest, 1 View Reviewed. ke 19:01 MAGNESIUM LEVEL Ordered. EDMS 19:42 Cardiac Injury Profile Reviewed. ke 19:42 Liver Profile Reviewed. ke 19:42 MED Profile Reviewed. ke 19:42 Lactic Acid (Aguero tube on ice) Reviewed. ke 19:42 MAGNESIUM LEVEL Reviewed. ke 19:42 Thyroid Stimulating Hormone Reviewed. ke 19:42 Troponin Reviewed. ke 19:43 Gabapentin 300 mg PO once ordered. ke 19:43 LORazepam 0.5 mg PO once ordered. ke 20:30 PHYSICAL THERAPY EVAL & TREAT ordered. EDMS 20:31 Admission / Observation Status ordered. EDMS 20:43 Financial registration complete. [email or web address] 20:43 [facility] Payment Agreement was scanned into [employer] and attached to record. [email or web address] 21:24 GASTROINTESTINAL (GI) PANEL Ordered. EDMS 11/25 02:48 CT ABD & PELVIS W/O CONTRAST Ordered. EDMS 06:32 Fingerstick Blood Sugar Ordered. EDMS 08:46 RENAL PROFILE Ordered. EDMS 08:46 MAGNESIUM LEVEL Ordered. EDMS 08:46 LACTIC ACID LEVEL, LACTATE Ordered. EDMS 10:27 OTHER CUSTOM DIETS ordered. EDMS 13:37 BLOOD CULTURES Ordered. EDMS 13:37 BLOOD CULTURES Ordered. EDMS Administered Medications: 11/24 19:58 Drug: Gabapentin 300 mg [gabapentin 100 mg capsule (3 caps)] Route: PO; cf2 19:58 Drug: LORazepam 0.5 mg [lorazepam 1 mg tablet (0.5 tabs)] Route: PO; cf2 Signatures: Dispatcher [employer] EDMS [facility], Jennifer, MD MD sd1 Felix Davis, MMD UNIT TEACHER MMD UNIT TEACHER Mague CarvajalRN RN ck1 Ligia Huber RN RN Susan Malcolm RN RN sls2 Alexx Monson, ENTRY WRITER ENTRY WRITER jrd Moni Desai, Reg Reg ks16 sEha Waggoner RN cf2 The chart was reviewed and I authenticate all verbal orders and agree with the evaluation and treatment provided.Corrections: (The following items were deleted from the chart) 17:20 17:05 PMHx: Renal Failure with Dialysis; 1 ck1 17:20 17:05 PSHx: Unable to obtain; [facility] ck 17:52 17:36 Straight cath ordered. [facility] 19:01 18:49 MAGNESIUM LEVEL+LAB ordered. EDMS EDMS 21:24 21:21 GASTROINTESTINAL (GI) PANEL ordered. EDMS EDMS 0222 10:27 02/ 20:31 OTHER CUSTOM DIETS ordered. EDMS EDMS Attachments: 20:43 [facility] Payment Agreement [email or web address] MTDD
[2016-11-25 20:00] VITALS: BP 142/58
[2016-11-25] MEDS: ATORVASTATIN 10 MG TAB PO SCH (21:51)
[2016-11-26 04:00] VITALS: BP 124/60
[2016-11-26] MEDS: NS 1,000 ML IV SCH (06:20)
[2016-11-26 06:37] LABS: BASO % 0.5 % (0.0-1.0); EOS # 0.2 K/mm3 (0.0-0.50); EOS % 2.3 % (0.0-3.0); LARGE UNSTAINED CELL # 0.3 K/mm3 (0.0-0.4); LARGE UNSTAINED CELL % 4.3 % (0.0-4.0); LYMPH # 2.3 K/mm3 (1.5-4.5); LYMPH % 27.9 % (24.0-44.0); MEAN CORPUSCULAR HEMOGLOBIN 31.5 pg (27.0-33.0); MEAN CORPUSCULAR HGB CONC 33.2 g/dl (32.0-36.5); MEAN CORPUSCULAR VOLUME 94.8 fl (80.0-96.0); MONO # 0.7 K/mm3 (0.0-0.8); MONO % 9.8 % (0.0-5.0); NEUTROPHILS # 3.9 K/mm3 (1.8-7.7); NEUTROPHILS % 55.2 % (36.0-66.0); PLATELET COUNT, AUTOMATED 250 k/mm3 (150-450); RED CELL DISTRIBUTION WIDTH 13.8 % (11.5-14.5); WHITE BLOOD COUNT 7.1 K/mm3 (4.0-10.0)
[2016-11-26 06:53] LABS: ALBUMIN 2.5 GM/DL (3.2-5.2); CALCIUM LEVEL 8.9 MG/DL (8.8-10.2); CREATININE FOR GFR 3.81 MG/DL (0.55-1.02); GLOMERULAR FILTRATION RATE 12.2 (>39); PHOSPHORUS LEVEL 3.7 MG/DL (2.5-4.9)
[2016-11-26 07:02] LABS: POTASSIUM SERUM 2.9 MEQ/L (3.5-5.1)
[2016-11-26] MEDS: HumaLOG INSULIN (NovoLOG) PER UNIT SC SCH ×4 (07:30→21:02)
--- NOTE | 2016-11-26 07:50 | IPNPDOC ---
Subjective Date Seen The patient was seen on 11/26/16. Subjective Chief Complaint/HPI The patient is a 76-year-old female admitted with a reason for visit of Altered Mental State. General: Reports: Fatigue, Malaise, Denies: Chills, Night Sweats, Normal Appetite, Other Symptoms, ROS Unobtainable Constitutional: Reports: Fatigue, Malaise, Denies: Chills, Fever, Lethargy, Night Sweats, Other, Weakness, Weight Loss Eyes: Denies: Conjunctivae inflammation, Eyelid inflammation, Other, Pain, Redness, Vision change ENT: Denies: Dysphagia, Ear Pain, Epistaxis, Head Aches, Other Symptoms, Post Nasal Drip, Sinus Congestion, Sore Throat Skin: Denies: Breakdown, Bruising, Dry, Itching, Jaundice, Lesions, Nail Changes, Other, Rash Pulmonary: Denies: Cough, Dyspnea, Other Symptoms, Pleuritic Chest Pain Cardiovascular: Denies: Chest Pain, Edema, Lt Headedness, Orthopnea, Other Symptoms, Palpitations, Paroxysmal Noc. Dyspnea Gastrointestinal: Denies: Abdominal Pain, Constipation, Diarrhea, Hematochezia , Melena, Nausea, Other Symptoms, Vomiting Genitourinary: Reports: Dysuria, Denies: Frequency, Hematuria, Incontinence, Other Symptoms, Retention Objective Physical Examination General Exam: Positive: Alert, Cooperative, Mild Distress Eye Exam: Positive: Conjunctiva & lids normal, EOMI, PERRLA, Negative: Sclera icteric ENT Exam: Positive: Atraumatic, Mucous membr. moist/pink Neck Exam: Positive: Supple Chest Exam: Positive: Normal air movement, Other (bibasilar crepitus) Heart Exam: Positive: Rate Normal, Regular Rhythm Telemetry: Positive: No significant arrhythmia, Sinus Abdomen Exam: Positive: Normal bowel sounds, Soft, Negative: Tenderness Extremity Exam: Negative: Edema Psych Exam: Positive: Oriented x 3 Assessment /Plan Problems (1) Altered mental status Status: Resolved Response to Treatment: Progressing Discussed With: Patient Problem Specific Plan: Monitor Clinically, Repeat Labs Problem Text: Multifactorial etiology. Likely toxic metabolic encephalopathy secondary to UTI complicated with uremia, possibly bacteremia. Further complicated with her multiple medical co-morbidities. (2) CKD (chronic kidney disease) Status: Acute Problem Specific Plan: Consult Specialist, Repeat Labs Problem Text: acute on chronic, baseline is CKD V, not on dialysis. Does have right AV fistula if needed. IV fluids, nephrology consultation appreciated. diuretics on hold (lasix, metolazone) (3) UTI (urinary tract infection) Status: Acute Discussed With: Patient Problem Specific Plan: Monitor Clinically, Repeat Labs Problem Text: Cultures positive for proteus. Sensitive to ceftriaxone. (4) Positive blood culture Status: Acute Response to Treatment: Progressing Problem Specific Plan: Monitor Clinically, Repeat Labs Problem Text: 2/4 G+ Repeat cultures pending. Administered vancomycin x 1. (5) HTN (hypertension) Status: Chronic Problem Specific Plan: Monitor Clinically Problem Text: norvasc, coreg, hydralazine with hold parameters. (6) Hypercholesteremia Status: Chronic Problem Text: lipitor (7) Diabetes Status: Chronic Problem Specific Plan: Repeat Labs Problem Text: holding basal insulin continue with insulin sliding scale (8) Depression Status: Chronic Problem Specific Plan: Monitor Clinically Problem Text: continue cymbalta (9) CAD (coronary artery disease) Status: Chronic Problem Text: coreg, plavix, lipitor, asa (10) TIA (transient ischemic attack) Status: Chronic Problem Text: continue asa, plavix Plan/VTE VTE Prophylaxis Ordered?: Yes Plan IVF: Continue Diet: Continue Current Activity: Continue Current Medications: Replete Electrolytes IV, Replete Electrolytes PO, Start Antibiotics Diagnostics: Repeat Labs in AM, Obtain Cultures VS, I&O, [facility]H, [facility] Vital Signs/I&O Vital Signs Date Time Temp Pulse Resp B/P Pulse Ox O2 Delivery O2 Flow Rate FiO2 11/26/16 04:00 97.7 69 19 124/60 99 Nasal Cannula 2.0 I&O- Last 24 Hours up to 6 AM 11/26/16 06:00 Intake Total 1140 ml Output Total 1200 ml Balance -60 ml Laboratory Data 24H LABS Laboratory Tests 2 11/25/16 08:57: Albumin 2.9L, Blood Urea Nitrogen 81H, Creatinine 3.84H, Sodium Level 140, Potassium Level 3.5, Chloride Level 93L, Carbon Dioxide Level 35H, Anion Gap 12 , Calcium Level 9.4, Glomerular Filtration Rate 12.1L, Lactic Acid (Sepsis) 1.3 , Magnesium Level 2.7H, Phosphorus Level 4.7 11/25/16 12:15: Bedside Glucose (Misc Panel) 285H 11/25/16 17:42: Bedside Glucose (Misc Panel) 314H 11/25/16 21:21: Bedside Glucose (Misc Panel) 353H 11/26/16 06:15: Albumin 2.5L, Blood Urea Nitrogen 74H, Creatinine 3.81H, Sodium Level 138, Potassium Level 2.9*L, Chloride Level 94L, Carbon Dioxide Level 37H, Anion Gap 7L, White Blood Count 7.1, Red Blood Count 3.44L, Hemoglobin 10.8L, Hematocrit 32.6L, Mean Corpuscular Volume 94.8, Mean Corpuscular Hemoglobin 31.5, Mean Corpuscular Hemoglobin Concent 33.2, Red Cell Distribution Width 13.8, Platelet Count 250, Neutrophils (%) (Auto) 55.2, Lymphocytes (%) (Auto) 27.9, Monocytes ( %) (Auto) 9.8H, Eosinophils (%) (Auto) 2.3, Basophils (%) (Auto) 0.5, Neutrophils # (Auto) 3.9, Lymphocytes # (Auto) 2.3, Monocytes # (Auto) 0.7, Eosinophils # (Auto) 0.2, Basophils # (Auto) 0.0, Calcium Level 8.9, Glomerular Filtration Rate 12.2L, Large Unclassified Cells # 0.3, Large Unclassified Cells % 4.3H, Phosphorus Level 3.7# CBC/BMP Laboratory Tests 11/25/16 08:57 Anion Gap 12 11/26/16 06:15 Anion Gap 7 L, Red Blood Count 3.44 L, Mean Corpuscular Volume 94.8, Mean Corpuscular Hemoglobin 31.5, Mean Corpuscular Hemoglobin Concent 33.2, Red Cell Distribution Width 13.8, Neutrophils (%) (Auto) 55.2, Lymphocytes (%) (Auto) 27.9, Monocytes (%) (Auto) 9.8 H, Eosinophils (%) (Auto) 2.3, Basophils (%) ( Auto) 0.5, Neutrophils # (Auto) 3.9, Lymphocytes # (Auto) 2.3, Monocytes # (Auto ) 0.7, Eosinophils # (Auto) 0.2, Basophils # (Auto) 0.0 Microbiology Microbiology 11/25/16 Blood Culture, Received Pending 11/25/16 Blood Culture, Received Pending 11/24/16 Blood Culture - Preliminary, Resulted 11/24/16 Blood Culture - Preliminary, Resulted 11/24/16 Urine Culture - Preliminary, Resulted Proteus Mirabilis ARLEY ROJO MD Nov 26, 2016 07:50
[2016-11-26 08:00] VITALS: BP 142/66
[2016-11-26 08:17] LABS: MAGNESIUM LEVEL 2.5 MG/DL (1.8-2.4)
[2016-11-26] MEDS: CALCITRIOL 0.25 MCG CAP (S0169) PO SCH (08:55)
[2016-11-26] MEDS: CARVedilol 6.25 MG TAB PO SCH ×2 (08:55→21:00)
[2016-11-26] MEDS: ASPIRIN 81 MG ENTERIC TAB PO SCH (08:56)
[2016-11-26] MEDS: CLOPIDOGREL 75 MG TAB PO SCH (08:56)
[2016-11-26] MEDS: FAMOTIDINE 20 MG TAB PO SCH ×2 (08:56→21:00)
[2016-11-26] MEDS: PHENAZOPYRIDINE 100 MG TAB PO SCH ×2 (08:56→20:59)
[2016-11-26] MEDS: amLODIPine 10 MG TAB PO SCH (08:56)
[2016-11-26] MEDS: **hydrALAZINE HCL** 25 MG TAB PO SCH ×2 (08:56→21:00)
[2016-11-26] MEDS: GABAPENTIN 100 MG CAP PO SCH ×2 (08:56→21:00)
[2016-11-26] MEDS: VITAMIN D 1,000 INTERNATIONAL UNITS TABLET PO SCH (08:56)
[2016-11-26] MEDS: DULoxetine 30 MG CAP (CYMBALTA) PO SCH (08:57)
[2016-11-26] MEDS ORDERED: DULoxetine 30 MG CAP (CYMBALTA) PO SCH (09:00)
[2016-11-26] MEDS: POTASSIUM CHLORIDE 10 MEQ SR TABLET PO SCH ×2 (09:00→20:59)
[2016-11-26] MEDS ORDERED: VANCOMYCIN HCL 500 MG in D5W MINI-BAG PLUS 100 ML IV SCH (10:00)
[2016-11-26] MEDS ORDERED: BISACODYL 10 MG SUPP PR ONE (11:00)
[2016-11-26] MEDS ORDERED: LACTULOSE 20 GM/30 ML SYRUP UD PO ONE (11:00)
[2016-11-26 12:00] VITALS: BP 141/65
[2016-11-26] MEDS: cefTRIAXone SOD 1 GM in D5W MINI-BAG PLUS 50 ML IV SCH (12:00)
--- NOTE | 2016-11-26 12:52 | IPN ---
DATE: 11/26/2016 SUBJECTIVE: The patient was seen and examined at the bedside today morning. She feels much better today. Last 24 hour events were noted. The patient was found to have proteus urinary tract infection (UTI) and she also has bacteremia. Final species is pending. She feels better as compared with yesterday. She is much more awake and alert. She is tolerating her diet. However, she continues to complain of dysuria and constipation. REVIEW OF SYSTEMS: The patient denies any fevers, chills, rigors, headache, nausea, vomiting, chest pain, shortness of breath. She does report pain in the lower abdomen and dysuria. She says that she is still constipated. She not moved her bowels. The rest of the review of systems is negative. OBJECTIVE: VITAL SIGNS: Temperature is 97.3 degrees Fahrenheit, blood pressure is 142/66, pulse is 69, respiratory rate of 16, saturating 93% on room air. Intake and output: Urine output recorded as 1650 mL yesterday, 800 mL far today since overnight. Weight on the bed scale is 97.7 kg. PHYSICAL EXAMINATION: GENERAL: The patient is awake, alert, oriented times three, sitting in the bed in no apparent distress. HEAD AND NECK EXAM: Extraocular muscles intact. Pupils equally round, and reactive to light. Mucous membranes are moist. Neck is supple. There is no jugular venous distension (JVD). CARDIOVASCULAR: S1, S2 regular rate. No murmur, rub or gallop. RESPIRATORY: Chest is clear to auscultation bilaterally. Bilateral equal air entry. No rales or rhonchi. ABDOMEN: Soft, positive bowel sounds. Some mild tenderness in the suprapubic region, otherwise no organomegaly. EXTREMITIES: No clubbing or cyanosis. Pulses are 2+. CENTRAL NERVOUS SYSTEM: No focal neurological deficit. Power is 5/5 in all extremities. LABORATORY REVIEW : Complete blood count (CBC) showed a white blood count (WBC) of 7.1, hemoglobin 10.8, platelets are 250. Basic metabolic panel (BMP) showed sodium 138, potassium 2.9, chloride 94, bicarbonate 37, BUN 74, creatine is 3.8. Calcium is 8.9. Phosphorus 3.7, magnesium 2.5. MICROBIOLOGY: Urine culture is growing more than 100,000 colonies of proteus, which is sensitive to ceftriaxone. Blood culture preliminary report shows gram-positive cocci in clusters. CURRENT MEDICATIONS: The patient's medications were all reviewed by me. She is currently on IV vancomycin and Zosyn. Her diuretics were held yesterday. Her magnesium was also stopped and she has been started on potassium chloride 40 mEq by mouth twice a day. ASSESSMENT: 76-year-old female with past medical history of stage IV chronic kidney disease, hypertension, coronary artery disease, depression, diabetes mellitus type 2 admitted at this time because of confusion, dehydration and acute kidney injury superimposed on chronic kidney disease stage IV. Later on, she was found to have urinary tract infection (UTI) and bacteremia. PLAN: 1. Metabolic encephalopathy secondary to urinary tract infection and bacteremia. The patient was getting IV fluid hydration. She was started on IV antibiotics yesterday. Her mental status is significantly better today. 2. Acute kidney injury superimposed on chronic kidney disease stage IV. The patient's creatine today is 3.8, which is the same as yesterday. She was given a dose of diuretics. I have held her diuretics. However, her volume status is good at this time. I am going to stop the IV fluids, continue to encourage oral hydration at this time. The patient has a fistula in the right arm, but no urgent need to start hemodialysis at this time. 3. Proteus urinary tract infection (UTI) and gram-positive cocci bacteremia. The patient was started on vancomycin and ceftriaxone yesterday. Once the final culture and sensitivity comes back on the blood cultures, then we can taper down the antibiotics. 4. Hypertension. The patient's blood pressure is acceptable at this time. Continue current dose of amlodipine and Coreg. 5. Constipation. The patient is still constipated. I have ordered a dose of Dulcolax suppository 10 mg and lactulose 30 mg by mouth times one dose. 6. Hypokalemia. Hypokalemia is secondary to diuretics that were again started yesterday. I have stopped the diuretics. I have ordered potassium chloride 40 mEq by mouth twice a day, hopefully potassium would improve by tomorrow morning. 7. Hypermagnesemia. The patient was on oral magnesium when she came to the hospital. Magnesium has been stopped. Hopefully, it would improve over the next few days. The plan of care was discussed with the hospitalist team, Dr. Gato Aaron.
[2016-11-26 16:00] VITALS: BP 131/63
[2016-11-26 20:00] VITALS: BP 164/72
[2016-11-26] MEDS: ATORVASTATIN 10 MG TAB PO SCH (21:00)
[2016-11-26] MEDS: LEVEMIR (INSULIN DETEMIR) 1 UNITS/0.01ML SC SCH (21:01)
[2016-11-27] VITALS: BP 163/72
[2016-11-27 04:00] VITALS: BP 128/60
[2016-11-27 07:01] LABS: BASO % 0.4 % (0.0-1.0); EOS # 0.2 K/mm3 (0.0-0.50); EOS % 2.6 % (0.0-3.0); LARGE UNSTAINED CELL # 0.3 K/mm3 (0.0-0.4); LYMPH # 2.5 K/mm3 (1.5-4.5); LYMPH % 28.3 % (24.0-44.0); MEAN CORPUSCULAR HEMOGLOBIN 31.4 pg (27.0-33.0); MEAN CORPUSCULAR HGB CONC 33.3 g/dl (32.0-36.5); MEAN CORPUSCULAR VOLUME 94.3 fl (80.0-96.0); MONO # 0.7 K/mm3 (0.0-0.8); MONO % 8.9 % (0.0-5.0); NEUTROPHILS # 4.3 K/mm3 (1.8-7.7); NEUTROPHILS % 55.8 % (36.0-66.0); PLATELET COUNT, AUTOMATED 237 k/mm3 (150-450); RED CELL DISTRIBUTION WIDTH 13.7 % (11.5-14.5); WHITE BLOOD COUNT 7.7 K/mm3 (4.0-10.0)
[2016-11-27 07:18] LABS: ALBUMIN 2.5 GM/DL (3.2-5.2); CALCIUM LEVEL 9.4 MG/DL (8.8-10.2); CREATININE FOR GFR 3.19 MG/DL (0.55-1.02); PHOSPHORUS LEVEL 2.8 MG/DL (2.5-4.9)
--- NOTE | 2016-11-27 07:46 | IPNPDOC ---
Subjective Date Seen The patient was seen on 11/27/16. Subjective Chief Complaint/HPI The patient is a 76-year-old female admitted with a reason for visit of Altered Mental State. General: Denies: Chills, Fatigue, Malaise, Night Sweats, Normal Appetite, Other Symptoms, ROS Unobtainable Constitutional: Denies: Chills, Fatigue, Fever, Lethargy, Malaise, Night Sweats , Other, Weakness, Weight Loss Eyes: Denies: Conjunctivae inflammation, Eyelid inflammation, Other, Pain, Redness, Vision change ENT: Denies: Dysphagia, Ear Pain, Epistaxis, Head Aches, Other Symptoms, Post Nasal Drip, Sinus Congestion, Sore Throat Skin: Denies: Breakdown, Bruising, Dry, Itching, Jaundice, Lesions, Nail Changes, Other, Rash Pulmonary: Denies: Cough, Dyspnea, Other Symptoms, Pleuritic Chest Pain Cardiovascular: Denies: Chest Pain, Edema, Lt Headedness, Orthopnea, Other Symptoms, Palpitations, Paroxysmal Noc. Dyspnea Gastrointestinal: Denies: Abdominal Pain, Constipation, Diarrhea, Hematochezia , Melena, Nausea, Other Symptoms, Vomiting Genitourinary: Denies: Dysuria, Frequency, Hematuria, Incontinence, Other Symptoms, Retention Musculoskeletal: Reports: Leg Pain Objective Physical Examination General Exam: Positive: Alert, Cooperative, No Acute Distress Eye Exam: Positive: Conjunctiva & lids normal, EOMI, PERRLA, Negative: Sclera icteric ENT Exam: Positive: Atraumatic, Mucous membr. moist/pink Neck Exam: Positive: Supple Chest Exam: Positive: Normal air movement, Other (bibasilar crepitus) Heart Exam: Positive: Rate Normal, Regular Rhythm Telemetry: Positive: No significant arrhythmia, Sinus Abdomen Exam: Positive: Normal bowel sounds, Soft, Negative: Tenderness Extremity Exam: Negative: Edema Psych Exam: Positive: Oriented x 3 Assessment /Plan Problems (1) Altered mental status Status: Resolved Response to Treatment: Progressing Discussed With: Patient Problem Specific Plan: Monitor Clinically, Repeat Labs Problem Text: Multifactorial etiology. Likely toxic metabolic encephalopathy secondary to UTI complicated with uremia, bacteremia. Further complicated with her multiple medical co-morbidities. (2) CKD (chronic kidney disease) Status: Acute Response to Treatment: Improving Problem Specific Plan: Consult Specialist, Repeat Labs Problem Text: acute on chronic, baseline is CKD V, not on dialysis. Does have right AV fistula if needed. Fluid discontinued, renal function improving, nephrology consultation appreciated. diuretics on hold (lasix, metolazone) (3) UTI (urinary tract infection) Status: Acute Response to Treatment: Improving Discussed With: Patient Problem Specific Plan: Monitor Clinically, Repeat Labs Problem Text: Cultures positive for proteus. Sensitive to ceftriaxone. Denies any symptoms today. (4) Positive blood culture Status: Acute Response to Treatment: Progressing Problem Specific Plan: Monitor Clinically, Repeat Labs Problem Text: 2/4 G+ Repeat cultures pending. Administered vancomycin x 1. (5) HTN (hypertension) Status: Chronic Problem Specific Plan: Monitor Clinically Problem Text: norvasc, coreg, hydralazine with hold parameters. (6) Hypercholesteremia Status: Chronic Problem Text: lipitor (7) Diabetes Status: Chronic Problem Specific Plan: Repeat Labs Problem Text: holding basal insulin continue with insulin sliding scale (8) Depression Status: Chronic Problem Specific Plan: Monitor Clinically Problem Text: continue cymbalta (9) CAD (coronary artery disease) Status: Chronic Problem Text: coreg, plavix, lipitor, asa (10) TIA (transient ischemic attack) Status: Chronic Problem Text: continue asa, plavix Plan/VTE VTE Prophylaxis Ordered?: Yes Plan IVF: Continue Diet: Continue Current Activity: Continue Current Therapy: PT Medications: Replete Electrolytes IV, Replete Electrolytes PO, Start Antibiotics Diagnostics: Repeat Labs in AM, Obtain Cultures, Ultrasound VS, I&O, 24H, Fishbone Vital Signs/I&O Vital Signs Date Time Temp Pulse Resp B/P Pulse Ox O2 Delivery O2 Flow Rate FiO2 11/27/16 04:00 97.3 67 18 128/60 94 Room Air 11/26/16 16:00 2.0 I&O- Last 24 Hours up to 6 AM 11/27/16 06:00 Intake Total 1900 ml Output Total 1800 ml Balance 100 ml Laboratory Data 24H LABS Laboratory Tests 2 11/26/16 12:17: Bedside Glucose (Misc Panel) 442H 11/26/16 17:52: Bedside Glucose (Misc Panel) 403H 11/26/16 19:55: Bedside Glucose (Misc Panel) 415H 11/27/16 06:27: Albumin 2.5L, Blood Urea Nitrogen 69H, Creatinine 3.19H, Sodium Level 142, Potassium Level 3.0L, Chloride Level 98, Carbon Dioxide Level 34H, Anion Gap 10 , White Blood Count 7.7, Red Blood Count 3.56L, Hemoglobin 11.2L, Hematocrit 33.6L, Mean Corpuscular Volume 94.3, Mean Corpuscular Hemoglobin 31.4, Mean Corpuscular Hemoglobin Concent 33.3, Red Cell Distribution Width 13.7, Platelet Count 237, Neutrophils (%) (Auto) 55.8, Lymphocytes (%) (Auto) 28.3, Monocytes ( %) (Auto) 8.9H, Eosinophils (%) (Auto) 2.6, Basophils (%) (Auto) 0.4, Neutrophils # (Auto) 4.3, Lymphocytes # (Auto) 2.5, Monocytes # (Auto) 0.7, Eosinophils # (Auto) 0.2, Basophils # (Auto) 0.0, Calcium Level 9.4, Glomerular Filtration Rate 15.0L, Large Unclassified Cells # 0.3, Large Unclassified Cells % 4.0, Phosphorus Level 2.8# CBC/BMP Laboratory Tests 11/27/16 06:27 Anion Gap 10, Red Blood Count 3.56 L, Mean Corpuscular Volume 94.3, Mean Corpuscular Hemoglobin 31.4, Mean Corpuscular Hemoglobin Concent 33.3, Red Cell Distribution Width 13.7, Neutrophils (%) (Auto) 55.8, Lymphocytes (%) (Auto) 28.3, Monocytes (%) (Auto) 8.9 H, Eosinophils (%) (Auto) 2.6, Basophils (%) ( Auto) 0.4, Neutrophils # (Auto) 4.3, Lymphocytes # (Auto) 2.5, Monocytes # (Auto ) 0.7, Eosinophils # (Auto) 0.2, Basophils # (Auto) 0.0 Microbiology Microbiology 11/25/16 Blood Culture - Preliminary, Resulted No growth after 24 hours . All specim... 11/25/16 Blood Culture - Preliminary, Resulted No growth after 24 hours . All specim... 11/24/16 Blood Culture - Preliminary, Resulted 11/24/16 Blood Culture - Preliminary, Resulted 11/24/16 Urine Culture - Preliminary, Resulted Proteus Mirabilis ARLEY ROJO MD Nov 27, 2016 07:46
[2016-11-27 08:00] VITALS: BP 119/58
[2016-11-27] MEDS: CALCITRIOL 0.25 MCG CAP (S0169) PO SCH (08:19)
[2016-11-27] MEDS: CLOPIDOGREL 75 MG TAB PO SCH (08:19)
[2016-11-27] MEDS: PHENAZOPYRIDINE 100 MG TAB PO SCH ×2 (08:19→22:10)
[2016-11-27] MEDS: GABAPENTIN 100 MG CAP PO SCH ×2 (08:19→20:53)
[2016-11-27] MEDS: ASPIRIN 81 MG ENTERIC TAB PO SCH (08:19)
[2016-11-27] MEDS: HumaLOG INSULIN (NovoLOG) PER UNIT SC SCH ×4 (08:19→20:55)
[2016-11-27] MEDS: FAMOTIDINE 20 MG TAB PO SCH ×2 (08:19→20:52)
[2016-11-27] MEDS: DULoxetine 30 MG CAP (CYMBALTA) PO SCH (08:19)
[2016-11-27] MEDS: CARVedilol 6.25 MG TAB PO SCH ×2 (08:20→20:53)
[2016-11-27] MEDS: **hydrALAZINE HCL** 25 MG TAB PO SCH ×2 (08:20→20:53)
[2016-11-27] MEDS: amLODIPine 10 MG TAB PO SCH (08:21)
[2016-11-27 08:23] LABS: MAGNESIUM LEVEL 2.5 MG/DL (1.8-2.4)
[2016-11-27] MEDS: VITAMIN D 1,000 INTERNATIONAL UNITS TABLET PO SCH (09:46)
[2016-11-27] MEDS: POTASSIUM CHLORIDE 10 MEQ SR TABLET PO SCH ×2 (09:46→20:52)
[2016-11-27] MEDS ORDERED: LACTULOSE 20 GM/30 ML SYRUP UD PO ONE (12:00)
[2016-11-27] MEDS: cefTRIAXone SOD 1 GM in D5W MINI-BAG PLUS 50 ML IV SCH (12:09)
--- NOTE | 2016-11-27 12:17 | IPN ---
DATE: 11/27/2016 SUBJECTIVE: The patient was seen and examined at the bedside today in the morning. She feels much better today. Her kidney function continues to improve. She reports that she moved her bowels yesterday after taking Lactulose and Dulcolax suppository. Her dysuria is also improving. REVIEW OF SYSTEMS: The patient denies any fevers, chills, rigors, headache, nausea, vomiting, chest pain, shortness of breath. Her constipation and dysuria are improving, as mentioned above. The rest of the review of system is negative. OBJECTIVE: VITAL SIGNS: Temperature is 97.4 degrees Fahrenheit, blood pressure is 119/58, pulse is 67, respiratory rate of 18, saturating 95% on room air. Intake and output: Urine output recorded was 1800 mL yesterday, 800 mL so far today since overnight. Weight on the bed scale is 79.5 kg. PHYSICAL EXAMINATION: GENERAL: The patient is awake, alert, oriented times three, sitting in the bed in no apparent distress. HEAD AND NECK EXAM: Extraocular muscles intact. Pupils equally round, and reactive to light. Mucous membranes are moist. Neck is supple. There is no jugular venous distension (JVD). CARDIOVASCULAR: S1, S2 regular rate. No murmur, rub or gallop. RESPIRATORY: Chest is clear to auscultation bilaterally. Bilateral equal air entry. No rales or rhonchi. ABDOMEN: Soft, positive bowel sounds. Nontender. No ascites. No organomegaly. EXTREMITIES: No clubbing or cyanosis. Pulses are 2+. There is very trace edema of the bilateral lower extremities. CENTRAL NERVOUS SYSTEM: No focal neurological deficit. Power is 5/5 in all extremities. LABORATORY REVIEW : Complete blood count (CBC) showed a white blood count (WBC) of 7.7, hemoglobin 11.2, platelets are 237. Basic metabolic panel (BMP) showed sodium 142, potassium 3, chloride 98, bicarbonate 34, BUN 69, creatine is 3.1. GFR is around 15 at this time. Phosphorus is 2.8, magnesium 2.5. MICROBIOLOGY: Blood culture sent on 11/24/2016 is growing Staphylococcus epidermidis, which is oxacillin sensitive and vancomycin sensitive as well. CURRENT MEDICATIONS: The patient's medications were all reviewed by me. She continues to be on IV ceftriaxone and IV vancomycin. She continues to be on potassium chloride 40 mEq by mouth twice a day. ASSESSMENT: 76-year-old female with past medical history of stage IV chronic kidney disease, hypertension, coronary artery disease, depression, diabetes mellitus type 2 admitted at this time because of metabolic encephalopathy, dehydration, acute kidney injury superimposed on chronic kidney disease and later on she was found to have urinary tract infection (UTI) and bacteremia. PLAN: 1. Acute kidney injury superimposed on chronic kidney disease stage IV. The patient's renal function continues to improve. She is off of diuretics at this time. Acute kidney injury was secondary to volume depletion and sepsis. Her GFR is around 15. Continue to monitor for now. The patient has a right upper arm AV fistula ready for use but she does not need any dialysis treatment at this time. 2. Metabolic encephalopathy. It was secondary to urinary tract infection (UTI) and bacteremia. Her mental status is significantly improved now. 3. Sepsis secondary to urinary tract infection (UTI) and bacteremia. The patient is growing Proteus and Streptococcus agalactiae in her urine and both of them are sensitive to ceftriaxone that the patient is already receiving and she is growing Staphylococcus epidermidis in the blood, which is sensitive to vancomycin that the patient is on. Continue current antibiotics. 4. Hypertension. Blood pressure is acceptable at this time. Continue current dose of amlodipine and Coreg. 5. Constipation. The patient was given a dose of Dulcolax and lactulose. She moved her bowels once since yesterday. I will give her another dose of Lactulose 30 mL by mouth today. 6. Hypokalemia. The patient continues to be hypokalemic. I have restarted her on potassium chloride 40 mEq by mouth twice a day. 7. Metabolic alkalosis. It was secondary to dehydration and volume depletion. Her bicarbonate level is improving now, it is 34 at this time. Continue to monitor for now.
--- NOTE | 2016-11-27 12:53 | REP ---
Clinical: Pain and swelling . Technique: Aguero scale and color Doppler evaluation using linear high frequency transducer. Findings: Ultrasound examination of the right and left lower extremity deep venous structures from the common femoral vein to the popliteal vein demonstrates normal compressibility flow and wave patterns in response to respiration and augmentation. There is no evidence for deep venous thrombosis. Impression: No evidence for deep venous thrombosis bilaterally . Signed by Alvaro Gann MD 11/27/2016 12:45 P
--- NOTE | 2016-11-27 13:23 | PHACANCOPD ---
PHARMACY VANCOMYCIN DOSING Pt Demographics Demographics Patient Age:76 , Weight:79.500 , Gender: female Adjusted Body Weight Date: 11/25/16, Adjusted Body Weight: Kg Events Past 24 Hours Events Past 24 Hours: NO: Change in CrCl, Dialysis, Diuretic Therapy, Elevation in WBC, Fever, Other, Pending Diagnostics, Pending Procedures Vancomycin Vancomycin indication: bacteremia Vancomycin Target Ranges: 15-20 mcg/ml Vancomycin Load Y/N: Yes Load Dose Date Time Vancomycin Load Dose: 1000mg Date: 11/25 Time: ~14:30 Vancomycin Dose Date: 11/27/16. Current Vancomycin Dose: [750MG IV q48h @15] Date: 11/25/16. Current Vancomycin Dose: [500mg IV q48h @10] Intermittent Dosing?: No Labs Micro Microbiology 11/25/16 Blood Culture - Preliminary, Resulted No growth after 24 hours . All specim... 11/25/16 Blood Culture - Preliminary, Resulted No growth after 24 hours . All specim... 11/24/16 Blood Culture - Preliminary, Resulted 11/24/16 Blood Culture - Preliminary, Resulted Staphylococcus Epidermidis 11/24/16 Urine Culture - Final, Complete Proteus Mirabilis Strep Agalactiae Group B Creatinine Clearance Date:11/25/16. Creatinine Clearance: [12 ml/min]. Assessment and Plan Maintaining Current Dose?: No Reason for dose change: Trough too low Pharmacist Note Pharmacist Note Date: 11/27/16. Pharmacist note:A random value was drawn today at 0900 and came back 11.1mcg/ml. To increase her levels the dosing was changed to 750mg q48h starting today at 1500. We will continue to monitor and adjust dosing as needed. Date: 11/25/16. Pharmacist note: pt has been started on vancomycin for G+ bacteremia. She has stage V CKD, SCr is improved from yesterday. She has not been on vancomycin IV at our facility in the past. She will receive a 1g dose this afternoon and I will start 500mg q48h tomorrow morning. We will continue to monitor. [facility] Nov 27, 2016 13:23
[2016-11-27 15:00] VITALS: BP 144/82
[2016-11-27] MEDS ORDERED: VANCOMYCIN HCL 750 MG, VIAL MATE ADAPTER 1 EACH in D5W 250 ML IV SCH (15:00)
[2016-11-27 15:20] VITALS: BP 144/78
--- NOTE | 2016-11-27 15:29 | EDDOCDS ---
Nurse's Notes [facility] Name: Deion Jade Age: 76 yrs Sex: Female : 1940 Arrival Date: 11/24/2016 Time: 16:43 Bed Admit Hold Private MD: Diagnosis: Altered mental status, unspecified;Unspecified kidney failure Presentation: 11/24 16:51 Presenting complaint: EMS states: Sick for 9 days, increased lethargy, belly pain, MACE. ck1 Adult Sepsis Screening: Patient has new or worsening altered mentation (1 point). Patient's respiratory rate is less than 22. Systolic blood pressure is greater than 100. Patient has a qSOFA score of 1- Negative Sepsis Screen. Suicide/Homicide risk assessment- the patient denies having any suicidal and/or homicidal ideations and does not present with any other emotional, behavioral or mental health complaints. Status: Patient is not a parking meter servicer or dependent. Transition of care: patient was received from [facility]. Care prior to arrival: Glucose check. 353. 16:51 Acuity: EREN Level 3 ck1 16:51 Method Of Arrival: Ambulance ck1 Triage Assessment: 17:20 General: Appears in no apparent distress, comfortable, Behavior is appropriate for age, ck1 cooperative. Pain: Location: right leg and left leg Pain currently is 8 out of 10 on a pain scale. Neurological: Level of Consciousness is awake, alert, Oriented to person, place, time. Cardiovascular: Rhythm is sinus rhythm. Respiratory: Respiratory effort is unlabored, Respiratory pattern is regular, symmetrical. Derm: Skin is pink, warm & dry. Musculoskeletal: Circulation, motion, and sensation intact Range of motion intact in all extremities. Historical: - Allergies: Codeine Sulfate; PENICILLINS; - Home Meds: 1. carvedilol 6.25 mg oral tab 1 tab 2 times per day 2. metolazone 2.5 mg oral tab 1 tab once daily 3. potassium chloride 20 mEq Oral TbER 1 tab once daily 4. amlodipine 10 mg Oral tab 1 tab once daily 5. calcitriol 0.25 mcg oral cap 1 cap once daily 6. Lasix 40 mg Oral tab 2 tabs 2 times per day 7. aspirin 81 mg Oral tab 1 tab once daily 8. magnesium oxide 400 mg Oral tab 400 mg daily 9. Lantus 100 unit/mL Sub-Q crtg daily 75 units 10. Plavix 75 mg Oral tab 1 tab once daily 11. gabapentin 100 mg Oral tab twice a day 12. Novolin R Sub-Q 35 units TID with meals 13. Ventolin HFA 90 mcg/actuation Nebulizer HFAA 2 puffs every 4-6 hours PRN 14. Tylenol 500 mg Oral 1-2 tabs PO PRN 15. Miralax 17 gram/dose Oral powd once daily PRN 16. clonazepam 0.5 mg Oral tab 2 times per day PRN 17. Cymbalta 30 mg Oral cpDR 1 cap once daily 18. atorvastatin 10 mg oral tab 1 tab once daily 19. famotidine 20 mg Oral tab 1 tab 2 times per day 20. hydralazine 10 mg Oral tab 1 tab 2 times per day 21. Vitamin D3 5,000 unit oral tab daily - PMHx: Hypercholesterolemia; Hypertension; Diabetes - IDDM: controlled; Depression; TIA; CO; Renal Failure w/o Dialysis; - PSHx: triple bypass; Tonsillectomy; Adenoidectomy; fistula placement right arm; - Social history: No barriers to communication noted, The patient speaks fluent Jamaican, Speaks appropriately for age, Smoking status: Patient states former smoker of tobacco. - Family history: Not pertinent. - : The pt / caregiver states he / she is on anticoagulants: Plavix. Home medication list is obtained from the facility MAR. - Exposure Risk Screening:: None identified. Screenin:21 Screening information is obtained from the patient. Fall risk: At risk due to weakness. ck1 The following interventions are performed due to a positive Fall Risk Screen: Fall Risk is added to Special Handling on the patient Summary Screen. A Fall Risk Bracelet was applied to the patient. Side Rails are placed in the up position. A Call Cortez is given with instruction to call for help when getting out of bed. Assistance ADL's: Requires assistance with meal preparation, this assistance is provided by Home Health Aides, bathing, assistance is provided by Home Health Aides, dressing, assistance is provided by Home Health Aides, toileting, assistance is provided by Home Health Aides, ambulation, assistance is provided by walker. housework, assistance is provided by Home Health Aides, medication administration, assistance is provided by Public Health nurses. Abuse/DV Screen: The patient / caregiver reports he/she is: not in a situation that causes fear, pain or injury. Nutritional screening: No deficits noted. Advance Directives: Currently, there is a health care proxy, Tiffany Mckeon (dtr). home support is adequate. Assessment: 17:22 General: see triage note. ck1 18:14 General: Appears in no apparent distress, to be sleeping. Behavior is appropriate for ck1 age, cooperative. Pain: Location: left leg and right leg. Neurological: Level of Consciousness is awake, alert, obeys commands, Oriented to person, place, time. Cardiovascular: Rhythm is sinus rhythm. Respiratory: Respiratory effort is even, unlabored, Respiratory pattern is regular, symmetrical. GI: No deficits noted. : Urine is cloudy. Derm: Skin is pink, warm & dry. 11/25 08:33 General: Appears rhythm note. SR/SB rate of 52 . [facility] Vital Signs: 11/24 16:38 Pulse 70 MON; Pulse Ox 95% ; ck1 16:39 BP 117 / 56 (auto/); ck1 16:54 BP 155 / 70 (auto/); ck1 16:56 BP 155 / 70; Pulse 61; Resp 18; Temp 97.0(O); Pulse Ox 98% on R/A; Weight 72.57 kg (R); nb2 Height 5 ft. 6 in. (167.64 cm) (R); Pain 7/10; 16:56 Pulse 60 MON; Pulse Ox 99% ; ck1 17:03 Pulse 62 MON; Pulse Ox 98% ; ck1 17:18 BP 164 / 67 (auto/); ck1 17:48 Pulse 66 MON; Pulse Ox 98% ; ck1 17:49 BP 167 / 71 (auto/); ck1 18:03 BP 167 / 72 (auto/); ck1 18:03 Pulse 62 MON; Pulse Ox 100% ; ck1 16:56 Body Mass Index 25.82 (72.57 kg, 167.64 cm) 2 Vitals: 16:56 Log In Time N/A - ambulance arrival. 2 ED Course: 16:45 Patient visited by Alexx Monson PCA. jrd 16:45 Patient moved to Waiting jrd 16:46 Mague Vizcaino,RN is Primary Nurse. jrd 16:46 Patient moved to 6 jrd 16:53 Triage Initiated ck1 16:56 Placed in gown. Bed in low position. Call light in reach. Side rails up X2. Cardiac nb2 monitor on. Pulse ox on. NIBP on. 17:22 The patient / caregiver is instructed regarding the plan of care and ED course. ck1 17:23 [facility]. ke 17:24 Patient visited by Felix Davis FNP. ke 17:24 Patient visited by Felix Davis FNP. ke 17:25 CT Head Without Contrast Returned. EDMS 17:49 Patient visited by Felix Davis FNP. ke 17:51 Urine Culture Sent. ck1 17:51 UA Sent. ck1 17:52 BLOOD CULTURES Sent. ck1 17:52 Lactic Acid (Aguero tube on ice) Sent. ck1 17:52 Inserted saline lock: 20 gauge in left antecubital area and blood collected. The ck1 patient tolerated the procedure well. 18:01 Patient visited by Mechelle Arana. nb2 18:01 EKG done. (by ED staff). Reviewed by Felix FERNANDES. nb2 18:13 Patient visited by Mague Vizcaino RN. ck1 18:18 Chest, 1 View Returned. EDMS 18:43 Patient visited by Mague Vizcaino,NUNU. ck1 18:50 Primary Nurse role handed off by Mague Vizcaino,RN ck1 19:08 Patient visited by Felix Davis FNP. ke 19:10 Esha Waggoner,NUNU is Primary Nurse. cf2 19:10 Patient visited by Esha Waggoner RN. cf2 19:26 Notified nurse practitioner of lactic acid 2.1. sls1 19:29 Patient visited by Esha Waggoner,NUNU. cf2 19:53 Patient visited by Felix Davis FNP. ke 19:53 Maribell Jimenez is Hospitalizing Provider. ke 20:42 Patient name changed from Blitha\S\\S\Prashaw\S\ to Blitha\S\ \S\Prashaw. EDMS 20:42 Patient visited by Esha Waggoner,NUNU. cf2 20:43 PENDING SALE TO [facility] Payment Agreement was scanned into [employer] and attached to record. ks16 21:20 Patient moved to Admit Hold sls1 22:21 Patient moved to 18 sls1 22:21 Patient moved to Admit Hold sls1 11/25 04:11 CT ABD & PELVIS W/O CONTRAST Returned. EDMS 10:06 EKG-ADULT Returned. EDMS 11/27 09:09 T-Sheet-- Draft Copy was scanned into [employer] and attached to record. lg 09:10 ECG/EKG was scanned into [employer] and attached to record. lg 09:10 Radiology Report was scanned into [employer] and attached to record. lg Administered Medications: 11/24 19:58 Drug: Gabapentin 300 mg [gabapentin 100 mg capsule (3 caps)] Route: PO; cf2 19:58 Drug: LORazepam 0.5 mg [lorazepam 1 mg tablet (0.5 tabs)] Route: PO; cf2 Order Results: Lab Order: CBC with Diff; SPEC'M 11/24/16 17:38 Test: WHITE BLOOD COUNT; Value: 8.6; Range: 4.0-10.0; Units: K/mm3; Status: F Test: RED BLOOD COUNT; Value: 3.93; Range: 4.00-5.40; Abnormal: Below low normal; Units: M/mm3; Status: F Test: HEMOGLOBIN; Value: 12.5; Range: 12.0-16.0; Units: g/dl; Status: F Test: HEMATOCRIT; Value: 37.1; Range: 36.0-47.0; Units: %; Status: F Test: MEAN CORPUSCULAR VOLUME; Value: 94.3; Range: 80.0-96.0; Units: fl; Status: F Test: MEAN CORPUSCULAR HEMOGLOBIN; Value: 31.9; Range: 27.0-33.0; Units: pg; Status: F Test: MEAN CORPUSCULAR HGB CONC; Value: 33.8; Range: 32.0-36.5; Units: g/dl; Status: F Test: RED CELL DISTRIBUTION WIDTH; Value: 13.8; Range: 11.5-14.5; Units: %; Status: F Test: PLATELET COUNT, AUTOMATED; Value: 298; Range: 150-450; Units: k/mm3; Status: F Test: NEUTROPHILS %; Value: 57.9; Range: 36.0-66.0; Units: %; Status: F Test: LYMPH %; Value: 26.8; Range: 24.0-44.0; Units: %; Status: F Test: MONO %; Value: 8.5; Range: 0.0-5.0; Abnormal: Above high normal; Units: %; Status: F Test: EOS %; Value: 2.2; Range: 0.0-3.0; Units: %; Status: F Test: BASO %; Value: 0.9; Range: 0.0-1.0; Units: %; Status: F Test: LARGE UNSTAINED CELL %; Value: 3.7; Range: 0.0-4.0; Units: %; Status: F Test: NEUTROPHILS #; Value: 5.0; Range: 1.8-7.7; Units: K/mm3; Status: F Test: LYMPH #; Value: 2.6; Range: 1.5-4.5; Units: K/mm3; Status: F Test: MONO #; Value: 0.7; Range: 0.0-0.8; Units: K/mm3; Status: F Test: EOS #; Value: 0.2; Range: 0.0-0.50; Units: K/mm3; Status: F Test: BASO #; Value: 0.1; Range: 0.0-0.2; Units: K/mm3; Status: F Test: LARGE UNSTAINED CELL #; Value: 0.3; Range: 0.0-0.4; Units: K/mm3; Status: F Lab Order: Cardiac Injury Profile; SPEC'M 11/24/16 17:38 Test: CPK CREATINE PHOSPHOKINASE; Value: 231; Range: 26-192; Abnormal: Above high normal; Units: U/L; Status: F Test: CK-MB VALUE MASS; Value: 3.5; Range: 0.0-3.6; Units: NG/ML; Status: F Test: MB/CK RELATIVE INDEX; Value: 1.51; Range: < OR =4; Status: F Test Note: ; DIAGNOSIS CRITERIA MMB ng/ml Relative Index (RI) NON-AMI < or = 5 N/A AGUERO ZONE > 5 < or = 4 AMI > 5 > 4 Lab Order: Liver Profile; [facility] 11/24/16 17:38 Test: AST/SGOT; Value: 26; Range: 15-37; Units: U/L; Status: F Test: ALT/SGPT; Value: 29; Range: 12-78; Units: U/L; Status: F Test: ALKALINE PHOSPHATASE; Value: 91; Range: 45-117; Units: U/L; Status: F Test: BILIRUBIN,TOTAL; Value: 0.2; Range: 0.2-1.0; Units: MG/DL; Status: F Test: BILIRUBIN,DIRECT; Value: < 0.1; Range: 0.0-0.2; Units: MG/DL; Status: F Test: TOTAL PROTEIN; Value: 8.1; Range: 6.4-8.2; Units: GM/DL; Status: F Test: ALBUMIN; Value: 3.4; Range: 3.2-5.2; Units: GM/DL; Status: F Test: ALBUMIN/GLOBULIN RATIO; Value: 0.72; Range: 1.00-1.93; Abnormal: Below low normal; Status: F Lab Order: MED Profile; [facility] 11/24/16 17:38 Test: GLUCOSE, FASTING; Value: 309; Range: 83-110; Abnormal: Above high normal; Units: MG/DL; Status: F Test: BLOOD UREA NITROGEN; Value: 89; Range: 7-18; Abnormal: Above high normal; Units: MG/DL; Status: F Test: CREATININE FOR GFR; Value: 4.66; Range: 0.55-1.02; Abnormal: Above high normal; Units: MG/DL; Status: F Test: GLOMERULAR FILTRATION RATE; Value: 9.7; Range: >39; Abnormal: Below low normal; Status: F Test: SODIUM LEVEL; Value: 134; Range: 136-145; Abnormal: Below low normal; Units: MEQ/L; Status: F Test: POTASSIUM SERUM; Value: 3.0; Range: 3.5-5.1; Abnormal: Below low normal; Units: MEQ/L; Status: F Test: CHLORIDE LEVEL; Value: 87; Range: 98-107; Abnormal: Below low normal; Units: MEQ/L; Status: F Test: CARBON DIOXIDE LEVEL; Value: 36; Range: 21-32; Abnormal: Above high normal; Units: MEQ/L; Status: F Test: ANION GAP; Value: 11; Range: 8-16; Units: MEQ/L; Status: F Test: CALCIUM LEVEL; Value: 10.6; Range: 8.8-10.2; Abnormal: Above high normal; Units: MG/DL; Status: F Test Note: ; Units are mL/min/1.73 m2 Chronic Kidney Disease Staging per NKF: Stage I & II GFR >=60 Normal to Mildly Decreased Stage III GFR 30-59 Moderately Decreased Stage IV GFR 15-29 Severely Decreased Stage V GFR <15 Very Little GFR Left ESRD GFR <15 on SALES MGR Lab Order: Thyroid Stimulating Hormone; SPEC'11/24/16 17:38 Test: THYROID STIMULATING HORMONE; Value: 2.010; Range: 0.358-3.740; Units: uIU/ML; Status: F Lab Order: Troponin; SPEC11/24/16 17:38 Test: TROPONIN I; Value: 0.04; Range: < 0.10; Units: NG/ML; Status: F Test Note: ; Troponin I Reference Interval for [employer] LOCI: 99th Percentile= 0.00-0.045 ng/ml Risk Stratification: <= 0.10 ng/ml Decreased Risk for Adverse Clinical Events. 0.10-1.50 ng/ml Increased Risk for Adverse Clinical Events. Evaluation of additional criterion and/or repeat testing in 2-6 hours is suggested to rule out myocardial damage. >= 1.50 ng/ml Indicative of Myocardial Injury. Lab Order: -Blood Culture; SPEC'11/24/16 17:41 Test: BLOOD CULTURE; Value: DATE POSITIVE DETECTED 11/25/16; Status: F Test: BLOOD CULTURE; Value: EXTERNAL GS (REQUIRED!!!) GRAM POSITIVE COCCI IN CLUSTERS; Status: F Lab Order: Lactic Acid (Aguero tube on ice); SPEC'11/24/16 17:36 Test: LACTIC ACID SEPSIS PROTOCOL; Value: 2.1; Range: 0.4-2.0; Abnormal: Above upper panic limits; Units: MMOL/L; Status: F Lab Order: UA; SPEC'11/24/16 17:50 Test: APPEARANCE, URINE; Value: CLEAR; Range: CLEAR; Status: F Test: COLOR, URINE; Value: YELLOW; Range: YELLOW; Status: F Test: PH,URINE; Value: 7.0; Range: 5.0-9.0; Units: UNITS; Status: F Test: SPECIFIC GRAVITY URINE AUTO; Value: 1.008; Range: 1.002-1.035; Status: F Test: PROTEIN, URINE AUTO; Value: 2+; Range: NEGATIVE; Abnormal: Above high normal; Units: mg/dL; Status: F Test: GLUCOSE, URINE (UA) AUTO; Value: 3+; Range: NEGATIVE; Abnormal: Above high normal; Units: mg/dL; Status: F Test: KETONE, URINE AUTO; Value: NEGATIVE; Range: NEGATIVE; Units: mg/dL; Status: F Test: UROBILINOGEN, URINE AUTO; Value: 0.2; Range: 0.0-2.0; Units: mg/dL; Status: F Test: BILIRUBIN, URINE AUTO; Value: NEGATIVE; Range: NEGATIVE; Status: F Test: NITRITE, URINE AUTO; Value: POSITIVE; Range: NEGATIVE; Status: F Test: LEUKOCYTE ESTERASE, URINE AUTO; Value: NEGATIVE; Range: NEGATIVE; Status: F Test: BLOOD, URINE BLOOD; Value: NEGATIVE; Range: NEGATIVE; Status: F Test: WBC, URINE AUTO; Value: 7; Range: 0-3; Abnormal: Above high normal; Units: /HPF; Status: F Test: RBC, URINE AUTO; Value: 0; Range: 0-3; Units: /HPF; Status: F Test: BACTERIA, URINE AUTO; Value: 1+; Range: NEGATIVE; Abnormal: Above high normal; Status: F Test: SQUAMOUS EPITHELIAL CELL UR AU; Value: 2; Range: 0-6; Units: /HPF; Status: F Test: HYALINE CAST, URINE AUTO; Value: 0; Range: 0-1; Units: /LPF; Status: F Lab Order: BLOOD CULTURES; SPEC'M 11/24/16 17:38 Test: BLOOD CULTURE; Value: DATE POSITIVE DETECTED 11/25/16; Status: F Test: BLOOD CULTURE; Value: EXTERNAL GS (REQUIRED!!!); Status: F Test: BLOOD CULTURE; Value: GRAM POSITIVE COCCI IN PAIRS, CHAINS AND CLUSTERS; Status: F Test: BLOOD CULTURE; Value: GRAM STAIN CALLED BY JESU; Status: F Test: BLOOD CULTURE; Value: GRAM STAIN CALLED TO CL RB; Status: F Test: BLOOD CULTURE; Value: DATE GRAM STAIN CALLED 11/25/16; Status: F Test: BLOOD CULTURE; Value: TIME GRAM STAIN CALLED 1151; Status: F Lab Order: MAGNESIUM LEVEL; [facility] 11/24/16 17:38 Test: MAGNESIUM LEVEL; Value: 2.7; Range: 1.8-2.4; Abnormal: Above high normal; Units: MG/DL; Status: F Lab Order: Fingerstick Blood Sugar; [facility] 11/25/16 06:18 Test: BEDSIDE GLUCOSE; Value: 136; Range: 83-110; Abnormal: Above high normal; Units: MG/DL; Status: F Lab Order: RENAL PROFILE; [facility] 11/25/16 08:57 Test: GLUCOSE, FASTING; Value: 135; Range: 83-110; Abnormal: Above high normal; Units: MG/DL; Status: F Test: BLOOD UREA NITROGEN; Value: 81; Range: 7-18; Abnormal: Above high normal; Units: MG/DL; Status: F Test: CREATININE FOR GFR; Value: 3.84; Range: 0.55-1.02; Abnormal: Above high normal; Units: MG/DL; Status: F Test: GLOMERULAR FILTRATION RATE; Value: 12.1; Range: >39; Abnormal: Below low normal; Status: F Test: SODIUM LEVEL; Value: 140; Range: 136-145; Units: MEQ/L; Status: F Test: POTASSIUM SERUM; Value: 3.5; Range: 3.5-5.1; Units: MEQ/L; Status: F Test: CHLORIDE LEVEL; Value: 93; Range: 98-107; Abnormal: Below low normal; Units: MEQ/L; Status: F Test: CARBON DIOXIDE LEVEL; Value: 35; Range: 21-32; Abnormal: Above high normal; Units: MEQ/L; Status: F Test: ANION GAP; Value: 12; Range: 8-16; Units: MEQ/L; Status: F Test: CALCIUM LEVEL; Value: 9.4; Range: 8.8-10.2; Units: MG/DL; Status: F Test: PHOSPHORUS LEVEL; Value: 4.7; Range: 2.5-4.9; Units: MG/DL; Status: F Test: ALBUMIN; Value: 2.9; Range: 3.2-5.2; Abnormal: Below low normal; Units: GM/DL; Status: F Test Note: ; Units are mL/min/1.73 m2 Chronic Kidney Disease Staging per NKF: Stage I & II GFR >=60 Normal to Mildly Decreased Stage III GFR 30-59 Moderately Decreased Stage IV GFR 15-29 Severely Decreased Stage V GFR <15 Very Little GFR Left ESRD GFR <15 on SALES MGR Lab Order: MAGNESIUM LEVEL; [facility]'11/25/16 08:57 Test: MAGNESIUM LEVEL; Value: 2.7; Range: 1.8-2.4; Abnormal: Above high normal; Units: MG/DL; Status: F Lab Order: LACTIC ACID LEVEL, LACTATE; [facility]11/25/16 08:57 Test: LACTIC ACID SEPSIS PROTOCOL; Value: 1.3; Range: 0.4-2.0; Units: MMOL/L; Status: F Lab Order: Fingerstick Blood Sugar; [facility]11/25/16 12:15 Test: BEDSIDE GLUCOSE; Value: 285; Range: 83-110; Abnormal: Above high normal; Units: MG/DL; Status: F Radiology Order: CT Head Without Contrast Test: CT Head Without Contrast REASON FOR EXAMINATION: altered; Clinical: Altered mental status .; ; Findings:; Age-related atrophy and microvascular ischemic changes are appreciated. The; ventricles and sulci are symmetric. Aguero-white differentiation is maintained.; There is no evidence for acute intracranial hemorrhage, mass/mass effect,; pathology or infarction. No extra-axial fluid collection. Calvarium is intact.; Paranasal sinuses and mastoid air cells are clear.; ; Impression:; Age related atrophy and microvascular ischemic changes.; No acute intracranial hemorrhage, infarction, or mass/mass effect.; ; ; Signed by; Alvaro Gann MD 11/24/2016 05:12 P; Radiology Order: Chest, 1 View Test: Chest, 1 View REASON FOR EXAMINATION: alterd; Clinical: Altered mental status.; ; Comparison: None.; ; Findings: Evidence of prior sternotomy and CABG. Cardiac silhouette is normal.; Atherosclerotic changes to the thoracic aorta noted. Lung waldrop demonstrate; chronic interstitial changes and findings to suggest mild chronic pulmonary; vascular congestion. No acute consolidation, effusion, or pneumothorax.; Skeletal structures intact.; ; Impression:; Chronic-appearing changes. 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; : 1940 Requested By: Jennifer Robert; Order Number: [id number] Reading MD: Jennifer Robert; Measurements; Intervals [place]; Rate: 62 P: 47; DC: 169 QRS: 34; QRSD: 140 T: 21; QT: 476; QTc: 484; Interpretive Statements; SINUS RHYTHM; POSSIBLE LEFT ATRIAL ENLARGEMENT; INTRAVENTRICULAR CONDUCTION DELAY; LEFT VENTRICULAR HYPERTROPHY AND ST-T CHANGE VS ISCHEMIA; INFERIOR MYOCARDIAL INFARCTION, PROBABLY OLD; CLINICAL CORRELATION; NO PRIOR FOR COMPARISON; Electronically Signed On 11-25-2016 9:57:20 EST by Jennifer Robert; Radiology Order: CT ABD & PELVIS W/O CONTRAST Test: CT ABD & PELVIS W/O CONTRAST REASON FOR EXAMINATION: LEFT LOWER QUADRANT ABD PAIN RADIATING TO BACK, DYSURIA; ; CLINICAL HISTORY: Abdominal pain.; TECHNIQUE: Multiple axial, sagittal and coronal CT images were obtained through the abdomen and pelvi; s without administration of oral or IV contrast material.; COMMENTS:; Diffuse thickening of the wall of the bladder.; Moderate large bowel fecal stasis.; Uncomplicated clonic diverticulosis.; Heavily calcified mitral valve.; The liver is mildly enlarged without mass or defect. There is no intra or extrahepatic biliary ductal; dilatation. The spleen is normal. The gallbladder is within normal limits. The pancreas is of normal; contour and attenuation characteristics. There is no evidence of adrenal mass.; The kidneys are normal in size, shape and configuration. No renal or ureteral calculi are identified.; There is no hydroureter or hydronephrosis.; There is no evidence for appendicitis. There is no bowel wall thickening. No evidence for small or la; rge bowel obstruction. There is no evidence of abdominal ascites or lymphadenopathy.; There is no evidence of intrinsic or extrinsic bladder mass. There is no pelvic ascites or lymphadeno; kayli.; Images of the lung bases show no evidence of pleural or parenchymal mass. There are no pleural effusi; ons.; The bony structures are free of lytic or blastic lesions. Multilevel degenerative changes are seen in; volving the thoracolumbar spine.; Scattered calcifications are seen involving the aorta and major branches compatible with atherosclero; sis.; IMPRESSION:; Diffuse thickening of the wall of the bladder.; Heavily calcified mitral valve.; Moderate large bowel fecal stasis.; Uncomplicated clonic diverticulosis.; Thank you for your kind referral of this patient.; ; Outcome: 17: CT Study completed. ck1 19:54 Decision to Hospitalize by Provider. ke 11/25 14:28 Patient left the ED. dsf Signatures: Dispatcher [employer] EDMS Rodri Loo,RN RN Amandeep Rice, Reg Reg lg Felix Davis, SEWER PIPE SORTER SEWER PIPE SORTER Mague CarvajalRN RN ck1 Ligia HuberRN RN dsf Annel Zamora RN RN sls1 Alexx Monson, EDUCATION CONSULTANT EDUCATION CONSULTANT Moni Potter, Reg Reg ks16 Esha Waggoner,RN RN cf2 Mechelle Arana2 Corrections: (The following items were deleted from the chart) 11/24 17:20 17:05 PMHx: Renal Failure with Dialysis; ck1 17:20 17:05 PSHx: Unable to obtain; ck1 ck1 19:01 18:50 MAGNESIUM LEVEL+LAB sent. ck1 EDMS Chart Complete MTDD
--- NOTE | 2016-11-27 15:29 | EDDOCDS ---
Physician Documentation [facility] Name: Shanda Loco Age: 76 yrs Sex: Female : 1940 Arrival Date: 11/24/2016 Time: 16:43 Bed Admit Hold Private MD: Disposition: 11/24/16 19:54 Hospitalization ordered by Maribell Jimenez for Inpatient Admission. Preliminary diagnosis are Altered mental status, unspecified, Unspecified kidney failure. - Bed requested for 4 [facility] (Formerly 3 [facility]). - Status is Inpatient Admission. dsf - Condition is Stable. - Problem is an ongoing problem. - Symptoms are unchanged. Historical: - Allergies: Codeine Sulfate; PENICILLINS; - Home Meds: 1. carvedilol 6.25 mg oral tab 1 tab 2 times per day 2. metolazone 2.5 mg oral tab 1 tab once daily 3. potassium chloride 20 mEq Oral TbER 1 tab once daily 4. amlodipine 10 mg Oral tab 1 tab once daily 5. calcitriol 0.25 mcg oral cap 1 cap once daily 6. Lasix 40 mg Oral tab 2 tabs 2 times per day 7. aspirin 81 mg Oral tab 1 tab once daily 8. magnesium oxide 400 mg Oral tab 400 mg daily 9. Lantus 100 unit/mL Sub-Q crtg daily 75 units 10. Plavix 75 mg Oral tab 1 tab once daily 11. gabapentin 100 mg Oral tab twice a day 12. Novolin R Sub-Q 35 units TID with meals 13. Ventolin HFA 90 mcg/actuation Nebulizer HFAA 2 puffs every 4-6 hours PRN 14. Tylenol 500 mg Oral 1-2 tabs PO PRN 15. Miralax 17 gram/dose Oral powd once daily PRN 16. clonazepam 0.5 mg Oral tab 2 times per day PRN 17. Cymbalta 30 mg Oral cpDR 1 cap once daily 18. atorvastatin 10 mg oral tab 1 tab once daily 19. famotidine 20 mg Oral tab 1 tab 2 times per day 20. hydralazine 10 mg Oral tab 1 tab 2 times per day 21. Vitamin D3 5,000 unit oral tab daily - PMHx: Hypercholesterolemia; Hypertension; Diabetes - IDDM: controlled; Depression; TIA; [place]; Renal Failure w/o Dialysis; - PSHx: triple bypass; Tonsillectomy; Adenoidectomy; fistula placement right arm; - Social history: No barriers to communication noted, The patient speaks fluent [place], Speaks appropriately for age, Smoking status: Patient states former smoker of tobacco. - Family history: Not pertinent. - : The pt / caregiver states he / she is on anticoagulants: Plavix. Home medication list is obtained from the facility DEC. - Exposure Risk Screening:: None identified. Vital Signs: 11/24 16:38 Pulse 70 MON; Pulse Ox 95% ; ck1 16:39 BP 117 / 56 (auto/); ck1 16:54 BP 155 / 70 (auto/); ck1 16:56 BP 155 / 70; Pulse 61; Resp 18; Temp 97.0(O); Pulse Ox 98% on R/A; Weight 72.57 kg / nb2 159.99 lbs (R); Height 5 ft. 6 in. (167.64 cm) (R); Pain 7/10; 16:56 Pulse 60 MON; Pulse Ox 99% ; ck1 17:03 Pulse 62 MON; Pulse Ox 98% ; ck1 17:18 BP 164 / 67 (auto/); ck1 17:48 Pulse 66 MON; Pulse Ox 98% ; ck1 17:49 BP 167 / 71 (auto/); ck1 18:03 BP 167 / 72 (auto/); ck1 18:03 Pulse 62 MON; Pulse Ox 100% ; ck1 16:56 Body Mass Index 25.82 (72.57 kg, 167.64 cm) nb2 MDM: 16:47 Utilization Management Um Nurse/Pulse Ox/q 15 min VS ordered. sd1 16:47 Accucheck ordered. sd1 16:47 IV Saline Lock ordered. sd1 16:47 Oxygen at 4L/Min NC or Home dosage ordered. sd1 16:47 Rhythm Strip to chart ordered. sd1 16:48 CBC with Diff Ordered. EDMS 16:48 Cardiac Injury Profile Ordered. EDMS 16:48 Liver Profile Ordered. EDMS 16:48 MED Profile Ordered. EDMS 16:48 Thyroid Stimulating Hormone Ordered. EDMS 16:48 Troponin Ordered. EDMS 16:49 Chest, 1 View Ordered. EDMS 16:49 CT Head Without Contrast Ordered. EDMS 16:49 ECG WITH READING ER PHYS+CARDIAG ordered. EDMS 17:36 -Blood Culture (Adults Only), peripheral from different site, or from device/port/PICC ke etc. if present ordered. 17:37 Lactic Acid (Aguero tube on ice) Ordered. EDMS 17:38 UA Ordered. EDMS 17:38 -Blood Culture Ordered. EDMS 17:38 Urine Culture Ordered. EDMS 17:47 -Blood Culture (Adults Only), peripheral from different site, or from device/port/PICC jrd etc. if present complete. 17:48 BLOOD CULTURES Ordered. EDMS 18:46 CBC with Diff Reviewed. ke 18:46 Cardiac Injury Profile Reviewed. ke 18:46 Liver Profile Reviewed. ke 18:46 MED Profile Reviewed. ke 18:46 UA Reviewed. ke 18:46 Thyroid Stimulating Hormone Reviewed. ke 18:46 Troponin Reviewed. ke 18:46 CT Head Without Contrast Reviewed. ke 18:46 Chest, 1 View Reviewed. ke 19:01 MAGNESIUM LEVEL Ordered. EDMS 19:42 Cardiac Injury Profile Reviewed. ke 19:42 Liver Profile Reviewed. ke 19:42 MED Profile Reviewed. ke 19:42 Lactic Acid (Aguero tube on ice) Reviewed. ke 19:42 MAGNESIUM LEVEL Reviewed. ke 19:42 Thyroid Stimulating Hormone Reviewed. ke 19:42 Troponin Reviewed. ke 19:43 Gabapentin 300 mg PO once ordered. ke 19:43 LORazepam 0.5 mg PO once ordered. ke 20:30 PHYSICAL THERAPY EVAL & TREAT ordered. EDMS 20:31 Admission / Observation Status ordered. EDMS 20:43 Financial registration complete. [email or web address] 20:43 [facility] Payment Agreement was scanned into [employer] and attached to record. [email or web address] 21:24 GASTROINTESTINAL (GI) PANEL Ordered. EDMS 11/25 02:48 CT ABD & PELVIS W/O CONTRAST Ordered. EDMS 06:32 Fingerstick Blood Sugar Ordered. EDMS 08:46 RENAL PROFILE Ordered. EDMS 08:46 MAGNESIUM LEVEL Ordered. EDMS 08:46 LACTIC ACID LEVEL, LACTATE Ordered. EDMS 10:27 OTHER CUSTOM DIETS ordered. EDMS 13:37 BLOOD CULTURES Ordered. EDMS 13:37 BLOOD CULTURES Ordered. EDMS 11/27 09:09 T-Sheet-- Draft Copy was scanned into [employer] and attached to record. lg 09:10 ECG/EKG was scanned into [employer] and attached to record. lg 09:10 Radiology Report was scanned into [employer] and attached to record. lg Administered Medications: 11/24 19:58 Drug: Gabapentin 300 mg [gabapentin 100 mg capsule (3 caps)] Route: PO; cf2 19:58 Drug: LORazepam 0.5 mg [lorazepam 1 mg tablet (0.5 tabs)] Route: PO; cf2 Signatures: Dispatcher [employer] EDMS Jennifer Robert MD MD sd1 Amandeep Ashley, Reg Reg lg Felix Davis, THUMB SEWER THUMB SEWER Mague CravajalRN RN ck1 Ligia Huber RN RN Susan Malcolm RN RN sls2 Alexx Monson, RIVER TESTER RIVER TESTER jrd Moni Desai, Reg Reg ks16 Esha Waggoner RN cf2 The chart was reviewed and I authenticate all verbal orders and agree with the evaluation and treatment provided.Corrections: (The following items were deleted from the chart) 17:20 17:05 PMHx: Renal Failure with Dialysis; [facility] ck1 17:20 17:05 PSHx: Unable to obtain; [place] [id number] 17:52 17:36 Straight cath ordered. [facility] 19:01 18:49 MAGNESIUM LEVEL+LAB ordered. EDMS EDMS 21:24 21:21 GASTROINTESTINAL (GI) PANEL ordered. EDMS EDMS 11/25 10:27 02 20:31 OTHER CUSTOM DIETS ordered. EDMS EDMS Attachments: 20:43 [facility] Payment Agreement [email or web address] 11/27 09:09 T-Sheet-- Draft Copy lg 09:10 ECG/EKG lg Chart Complete MTDD
--- NOTE | 2016-11-27 15:29 | EDDOCDS ---
Physician Documentation [facility] Name: Shanda Loco Age: 76 yrs Sex: Female : 1940 Arrival Date: 11/24/2016 Time: 16:43 Bed Admit Hold Private MD: Disposition: 11/24/16 19:54 Hospitalization ordered by Maribell Jimenez for Inpatient Admission. Preliminary diagnosis are Altered mental status, unspecified, Unspecified kidney failure. - Bed requested for [facility] (Former[facility] 3 [facility]). - Status is Inpatient Admission. dsf - Condition is Stable. - Problem is an ongoing problem. - Symptoms are unchanged. Historical: - Allergies: Codeine Sulfate; PENICILLINS; - Home Meds: 1. carvedilol 6.25 mg oral tab 1 tab 2 times per day 2. metolazone 2.5 mg oral tab 1 tab once daily 3. potassium chloride 20 mEq Oral TbER 1 tab once daily 4. amlodipine 10 mg Oral tab 1 tab once daily 5. calcitriol 0.25 mcg oral cap 1 cap once daily 6. Lasix 40 mg Oral tab 2 tabs 2 times per day 7. aspirin 81 mg Oral tab 1 tab once daily 8. magnesium oxide 400 mg Oral tab 400 mg daily 9. Lantus 100 unit/mL Sub-Q crtg daily 75 units 10. Plavix 75 mg Oral tab 1 tab once daily 11. gabapentin 100 mg Oral tab twice a day 12. Novolin R Sub-Q 35 units TID with meals 13. Ventolin HFA 90 mcg/actuation Nebulizer HFAA 2 puffs every 4-6 hours PRN 14. Tylenol 500 mg Oral 1-2 tabs PO PRN 15. Miralax 17 gram/dose Oral powd once daily PRN 16. clonazepam 0.5 mg Oral tab 2 times per day PRN 17. Cymbalta 30 mg Oral cpDR 1 cap once daily 18. atorvastatin 10 mg oral tab 1 tab once daily 19. famotidine 20 mg Oral tab 1 tab 2 times per day 20. hydralazine 10 mg Oral tab 1 tab 2 times per day 21. Vitamin D3 5,000 unit oral tab daily - PMHx: Hypercholesterolemia; Hypertension; Diabetes - IDDM: controlled; Depression; TIA; [place]; Renal Failure w/o Dialysis; - PSHx: triple bypass; Tonsillectomy; Adenoidectomy; fistula placement right arm; - Social history: No barriers to communication noted, The patient speaks fluent [place], Speaks appropriately for age, Smoking status: Patient states former smoker of tobacco. - Family history: Not pertinent. - : The pt / caregiver states he / she is on anticoagulants: Plavix. Home medication list is obtained from the facility DEC. - Exposure Risk Screening:: None identified. Vital Signs: 11/24 16:38 Pulse 70 MON; Pulse Ox 95% ; ck1 16:39 BP 117 / 56 (auto/); ck1 16:54 BP 155 / 70 (auto/); ck1 16:56 BP 155 / 70; Pulse 61; Resp 18; Temp 97.0(O); Pulse Ox 98% on R/A; Weight 72.57 kg / nb2 159.99 lbs (R); Height 5 ft. 6 in. (167.64 cm) (R); Pain 7/10; 16:56 Pulse 60 MON; Pulse Ox 99% ; ck1 17:03 Pulse 62 MON; Pulse Ox 98% ; ck1 17:18 BP 164 / 67 (auto/); ck1 17:48 Pulse 66 MON; Pulse Ox 98% ; ck1 17:49 BP 167 / 71 (auto/); ck1 18:03 BP 167 / 72 (auto/); ck1 18:03 Pulse 62 MON; Pulse Ox 100% ; ck1 16:56 Body Mass Index 25.82 (72.57 kg, 167.64 cm) nb2 MDM: 16:47 River Rat/Pulse Ox/q 15 min VS ordered. sd1 16:47 Accucheck ordered. sd1 16:47 IV Saline Lock ordered. sd1 16:47 Oxygen at 4L/Min NC or Home dosage ordered. sd1 16:47 Rhythm Strip to chart ordered. sd1 16:48 CBC with Diff Ordered. EDMS 16:48 Cardiac Injury Profile Ordered. EDMS 16:48 Liver Profile Ordered. EDMS 16:48 MED Profile Ordered. EDMS 16:48 Thyroid Stimulating Hormone Ordered. EDMS 16:48 Troponin Ordered. EDMS 16:49 Chest, 1 View Ordered. EDMS 16:49 CT Head Without Contrast Ordered. EDMS 16:49 ECG WITH READING ER PHYS+CARDIAG ordered. EDMS 17:36 -Blood Culture (Adults Only), peripheral from different site, or from device/port/PICC ke etc. if present ordered. 17:37 Lactic Acid (Aguero tube on ice) Ordered. EDMS 17:38 UA Ordered. EDMS 17:38 -Blood Culture Ordered. EDMS 17:38 Urine Culture Ordered. EDMS 17:47 -Blood Culture (Adults Only), peripheral from different site, or from device/port/PICC jrd etc. if present complete. 17:48 BLOOD CULTURES Ordered. EDMS 18:46 CBC with Diff Reviewed. ke 18:46 Cardiac Injury Profile Reviewed. ke 18:46 Liver Profile Reviewed. ke 18:46 MED Profile Reviewed. ke 18:46 UA Reviewed. ke 18:46 Thyroid Stimulating Hormone Reviewed. ke 18:46 Troponin Reviewed. ke 18:46 CT Head Without Contrast Reviewed. ke 18:46 Chest, 1 View Reviewed. ke 19:01 MAGNESIUM LEVEL Ordered. EDMS 19:42 Cardiac Injury Profile Reviewed. ke 19:42 Liver Profile Reviewed. ke 19:42 MED Profile Reviewed. ke 19:42 Lactic Acid (Aguero tube on ice) Reviewed. ke 19:42 MAGNESIUM LEVEL Reviewed. ke 19:42 Thyroid Stimulating Hormone Reviewed. ke 19:42 Troponin Reviewed. ke 19:43 Gabapentin 300 mg PO once ordered. ke 19:43 LORazepam 0.5 mg PO once ordered. ke 20:30 PHYSICAL THERAPY EVAL & TREAT ordered. EDMS 20:31 Admission / Observation Status ordered. EDMS 20:43 Financial registration complete. [email or web address] 20:43 [facility] Payment Agreement was scanned into [employer] and attached to record. [email or web address] 21:24 GASTROINTESTINAL (GI) PANEL Ordered. EDMS 11/25 02:48 CT ABD & PELVIS W/O CONTRAST Ordered. EDMS 06:32 Fingerstick Blood Sugar Ordered. EDMS 08:46 RENAL PROFILE Ordered. EDMS 08:46 MAGNESIUM LEVEL Ordered. EDMS 08:46 LACTIC ACID LEVEL, LACTATE Ordered. EDMS 10:27 OTHER CUSTOM DIETS ordered. EDMS 13:37 BLOOD CULTURES Ordered. EDMS 13:37 BLOOD CULTURES Ordered. EDMS 11/27 09:09 T-Sheet-- Draft Copy was scanned into [employer] and attached to record. lg 09:10 ECG/EKG was scanned into [employer] and attached to record. lg 09:10 Radiology Report was scanned into [employer] and attached to record. lg Administered Medications: 11/24 19:58 Drug: Gabapentin 300 mg [gabapentin 100 mg capsule (3 caps)] Route: PO; cf2 19:58 Drug: LORazepam 0.5 mg [lorazepam 1 mg tablet (0.5 tabs)] Route: PO; cf2 Signatures: Dispatcher [employer] EDMS Jennifer Robert MD MD sd1 Amandeep Ashley, Reg Reg lg Felix Davis, SHELLFISH GROWER SHELLFISH GROWER Mague CarvajalRN RN ck1 Ligia Huber RN RN Susan Malcolm RN RN sls2 Alexx Monson, LOGISTICS PROGRAM MANAGER LOGISTICS PROGRAM MANAGER jrd Moni Desai, Reg Reg ks16 Esha Waggoner RN cf2 The chart was reviewed and I authenticate all verbal orders and agree with the evaluation and treatment provided.Corrections: (The following items were deleted from the chart) 17:20 17:05 PMHx: Renal Failure with Dialysis; [facility] ck1 17:20 17:05 PSHx: Unable to obtain; [place] [id number] 17:52 17:36 Straight cath ordered. [facility] 19:01 18:49 MAGNESIUM LEVEL+LAB ordered. EDMS EDMS 21:24 21:21 GASTROINTESTINAL (GI) PANEL ordered. EDMS EDMS 11/25 10:27 02 20:31 OTHER CUSTOM DIETS ordered. EDMS EDMS Attachments: 20:43 [facility] Payment Agreement [email or web address] 11/27 09:09 T-Sheet-- Draft Copy lg 09:10 ECG/EKG lg Chart Complete MTDD
[2016-11-27] MEDS: ONDANSETRON 4MG/2ML VIAL (J2405) IV PRN (18:27)
[2016-11-27 20:00] VITALS: BP 151/69
[2016-11-27] MEDS: ATORVASTATIN 10 MG TAB PO SCH (20:53)
[2016-11-27] MEDS: LEVEMIR (INSULIN DETEMIR) 1 UNITS/0.01ML SC SCH (20:55)
[2016-11-28] VITALS: BP 125/63
[2016-11-28 04:00] VITALS: BP 136/65
[2016-11-28 05:22] LABS: BASO % 0.4 % (0.0-1.0); EOS # 0.2 K/mm3 (0.0-0.50); EOS % 2.8 % (0.0-3.0); LARGE UNSTAINED CELL # 0.4 K/mm3 (0.0-0.4); LARGE UNSTAINED CELL % 4.7 % (0.0-4.0); LYMPH # 2.3 K/mm3 (1.5-4.5); LYMPH % 29.7 % (24.0-44.0); MEAN CORPUSCULAR HEMOGLOBIN 31.3 pg (27.0-33.0); MEAN CORPUSCULAR HGB CONC 33.6 g/dl (32.0-36.5); MEAN CORPUSCULAR VOLUME 93.2 fl (80.0-96.0); MONO # 0.7 K/mm3 (0.0-0.8); MONO % 9.3 % (0.0-5.0); NEUTROPHILS # 4.2 K/mm3 (1.8-7.7); NEUTROPHILS % 53.1 % (36.0-66.0); PLATELET COUNT, AUTOMATED 225 k/mm3 (150-450); RED CELL DISTRIBUTION WIDTH 13.5 % (11.5-14.5); WHITE BLOOD COUNT 7.9 K/mm3 (4.0-10.0)
[2016-11-28 05:34] LABS: ALBUMIN 2.6 GM/DL (3.2-5.2); CALCIUM LEVEL 9.5 MG/DL (8.8-10.2); CREATININE FOR GFR 2.86 MG/DL (0.55-1.02); POTASSIUM SERUM 3.4 MEQ/L (3.5-5.1)
[2016-11-28 07:30] VITALS: BP 144/62
[2016-11-28] MEDS: CALCITRIOL 0.25 MCG CAP (S0169) PO SCH (08:15)
[2016-11-28] MEDS: POTASSIUM CHLORIDE 10 MEQ SR TABLET PO SCH ×2 (08:16→21:23)
[2016-11-28] MEDS: GABAPENTIN 100 MG CAP PO SCH ×2 (08:16→21:24)
[2016-11-28] MEDS: PHENAZOPYRIDINE 100 MG TAB PO SCH ×2 (08:16→21:23)
[2016-11-28] MEDS: DULoxetine 30 MG CAP (CYMBALTA) PO SCH (08:16)
[2016-11-28] MEDS: FAMOTIDINE 20 MG TAB PO SCH ×2 (08:17→21:23)
[2016-11-28] MEDS: **hydrALAZINE HCL** 25 MG TAB PO SCH ×2 (08:17→21:24)
[2016-11-28] MEDS: ASPIRIN 81 MG ENTERIC TAB PO SCH (08:17)
[2016-11-28] MEDS: CARVedilol 6.25 MG TAB PO SCH ×2 (08:17→21:24)
[2016-11-28] MEDS: amLODIPine 10 MG TAB PO SCH (08:17)
[2016-11-28] MEDS: VITAMIN D 1,000 INTERNATIONAL UNITS TABLET PO SCH (08:17)
[2016-11-28] MEDS: CLOPIDOGREL 75 MG TAB PO SCH (08:18)
[2016-11-28] MEDS: HumaLOG INSULIN (NovoLOG) PER UNIT SC SCH ×4 (08:18→21:25)
--- NOTE | 2016-11-28 08:28 | IPNPDOC ---
Subjective Date Seen The patient was seen on 11/28/16. Subjective Chief Complaint/HPI The patient is a 76-year-old female admitted with a reason for visit of Altered Mental State. Events since last encounter Admits to some polyuria today. Complains of abdominal pain, 3/10 B/L lower quadrants, non-radiating. General: Denies: Chills, Fatigue, Malaise, Night Sweats, Normal Appetite, Other Symptoms, ROS Unobtainable Constitutional: Denies: Chills, Fatigue, Fever, Lethargy, Malaise, Night Sweats , Other, Weakness, Weight Loss Eyes: Denies: Conjunctivae inflammation, Eyelid inflammation, Other, Pain, Redness, Vision change ENT: Denies: Dysphagia, Ear Pain, Epistaxis, Head Aches, Other Symptoms, Post Nasal Drip, Sinus Congestion, Sore Throat Skin: Denies: Breakdown, Bruising, Dry, Itching, Jaundice, Lesions, Nail Changes, Other, Rash Pulmonary: Denies: Cough, Dyspnea, Other Symptoms, Pleuritic Chest Pain Cardiovascular: Denies: Chest Pain, Edema, Lt Headedness, Orthopnea, Other Symptoms, Palpitations, Paroxysmal Noc. Dyspnea Gastrointestinal: Denies: Abdominal Pain, Constipation, Diarrhea, Hematochezia , Melena, Nausea, Other Symptoms, Vomiting Genitourinary: Reports: Frequency, Denies: Dysuria, Hematuria, Incontinence, Other Symptoms, Retention Objective Physical Examination General Exam: Positive: Alert, Cooperative, Mild Distress Eye Exam: Positive: Conjunctiva & lids normal, EOMI, PERRLA, Negative: Sclera icteric ENT Exam: Positive: Atraumatic, Mucous membr. moist/pink Neck Exam: Positive: Supple Chest Exam: Positive: Normal air movement Heart Exam: Positive: Rate Normal, Regular Rhythm Telemetry: Positive: No significant arrhythmia Abdomen Exam: Positive: Normal bowel sounds, Soft, Tenderness Extremity Exam: Negative: Edema Psych Exam: Positive: Mental status NL, Oriented x 3 Assessment /Plan Problems (1) CKD (chronic kidney disease) Status: Acute Response to Treatment: Improving Problem Specific Plan: Consult Specialist, Repeat Labs Problem Text: acute on chronic, baseline is CKD V, not on dialysis. Does have right AV fistula if needed. renal function improving, nephrology consultation appreciated. diuretics on hold (lasix, metolazone) (2) UTI (urinary tract infection) Status: Acute Response to Treatment: Improving Discussed With: Patient Problem Specific Plan: Monitor Clinically, Repeat Labs Problem Text: Cultures positive for proteus and strep Group B Continue ceftriaxone - day #4 Today she does admit to some polyuria. (3) Positive blood culture Status: Acute Response to Treatment: Progressing Problem Specific Plan: Monitor Clinically, Repeat Labs Problem Text: Bacteremia 1 - +staph epi - sensitive to vanco, tetracycline 2 - G+ cocci clusters 3/4 - NTD Administered vancomycin x 1. (4) HTN (hypertension) Status: Chronic Problem Specific Plan: Monitor Clinically Problem Text: norvasc, coreg, hydralazine with hold parameters. (5) Hypercholesteremia Status: Chronic Problem Text: lipitor (6) Diabetes Status: Chronic Problem Specific Plan: Repeat Labs Problem Text: holding basal insulin continue with insulin sliding scale (7) Depression Status: Chronic Problem Specific Plan: Monitor Clinically Problem Text: continue cymbalta (8) CAD (coronary artery disease) Status: Chronic Problem Text: coreg, plavix, lipitor, asa (9) TIA (transient ischemic attack) Status: Chronic Problem Text: continue asa, plavix (10) Altered mental status Status: Resolved Response to Treatment: Progressing Discussed With: Patient Problem Specific Plan: Monitor Clinically, Repeat Labs Problem Text: Multifactorial etiology. Likely toxic metabolic encephalopathy secondary to UTI complicated with uremia, bacteremia. Further complicated with her multiple medical co-morbidities. Plan/VTE VTE Prophylaxis Ordered?: Yes Plan IVF: Discontinue Diet: Continue Current Activity: Continue Current Therapy: PT Medications: Replete Electrolytes IV, Replete Electrolytes PO, Start Antibiotics Diagnostics: Repeat Labs in AM, Obtain Cultures VS, I&O, 24H, [facility] Vital Signs/I&O Vital Signs Date Time Temp Pulse Resp B/P Pulse Ox O2 Delivery O2 Flow Rate FiO2 11/28/16 08:17 69 144/62 11/28/16 04:00 Room Air 11/28/16 04:00 97.4 18 95 11/26/16 16:00 2.0 I&O- Last 24 Hours up to 6 AM 11/28/16 05:59 Intake Total 1035 ml Output Total 825 ml Balance 210 ml Laboratory Data 24H LABS Laboratory Tests 2 11/27/16 09:15: Vancomycin Level Trough 11.1 11/27/16 11:43: Bedside Glucose (Misc Panel) 424H 11/27/16 17:54: Bedside Glucose (Misc Panel) 397H 11/27/16 20:42: Bedside Glucose (Misc Panel) 376H 11/28/16 04:04: Bedside Glucose (Misc Panel) 226H 11/28/16 04:47: Albumin 2.6L, Blood Urea Nitrogen 60H, Creatinine 2.86H, Sodium Level 141, Potassium Level 3.4L, Chloride Level 98, Carbon Dioxide Level 34H, Anion Gap 9, White Blood Count 7.9, Red Blood Count 3.37L, Hemoglobin 10.6L, Hematocrit 31.4L , Mean Corpuscular Volume 93.2, Mean Corpuscular Hemoglobin 31.3, Mean Corpuscular Hemoglobin Concent 33.6, Red Cell Distribution Width 13.5, Platelet Count 225, Neutrophils (%) (Auto) 53.1, Lymphocytes (%) (Auto) 29.7, Monocytes ( %) (Auto) 9.3H, Eosinophils (%) (Auto) 2.8, Basophils (%) (Auto) 0.4, Neutrophils # (Auto) 4.2, Lymphocytes # (Auto) 2.3, Monocytes # (Auto) 0.7, Eosinophils # (Auto) 0.2, Basophils # (Auto) 0.0, Calcium Level 9.5, Glomerular Filtration Rate 17.0L, Large Unclassified Cells # 0.4, Large Unclassified Cells % 4.7H, Phosphorus Level 3.0 CBC/BMP Laboratory Tests 11/28/16 04:47 Anion Gap 9, Red Blood Count 3.37 L, Mean Corpuscular Volume 93.2, Mean Corpuscular Hemoglobin 31.3, Mean Corpuscular Hemoglobin Concent 33.6, Red Cell Distribution Width 13.5, Neutrophils (%) (Auto) 53.1, Lymphocytes (%) (Auto) 29.7, Monocytes (%) (Auto) 9.3 H, Eosinophils (%) (Auto) 2.8, Basophils (%) ( Auto) 0.4, Neutrophils # (Auto) 4.2, Lymphocytes # (Auto) 2.3, Monocytes # (Auto ) 0.7, Eosinophils # (Auto) 0.2, Basophils # (Auto) 0.0 Microbiology Microbiology 11/25/16 Blood Culture - Preliminary, Resulted No Growth after 48 hours. All Specime... 11/25/16 Blood Culture - Preliminary, Resulted No Growth after 48 hours. All Specime... 11/24/16 Blood Culture - Preliminary, Resulted 11/24/16 Blood Culture - Preliminary, Resulted Staphylococcus Epidermidis 11/24/16 Urine Culture - Final, Complete Proteus Mirabilis Strep Agalactiae Group B ARLEY ROJO MD Nov 28, 2016 08:28
[2016-11-28] MEDS: cefTRIAXone SOD 1 GM in D5W MINI-BAG PLUS 50 ML IV SCH (11:35)
[2016-11-28] MEDS: ONDANSETRON 4MG/2ML VIAL (J2405) IV PRN (11:35)
[2016-11-28 11:56] VITALS: BP 127/77
[2016-11-28 16:20] VITALS: BP 153/62
[2016-11-28 20:00] VITALS: BP 140/63
[2016-11-28] MEDS: ATORVASTATIN 10 MG TAB PO SCH (21:23)
[2016-11-28] MEDS: LEVEMIR (INSULIN DETEMIR) 1 UNITS/0.01ML SC SCH (21:24)
[2016-11-29] VITALS: BP 166/72
--- NOTE | 2016-11-29 03:59 | IPN ---
DATE OF SERVICE: 11/28/2016 Ms. Loco is seen this morning on her bedside. She is sitting at the edge of bed eating her breakfast. She reports feeling better and stronger. She reports that she has been able to get up and walk with the help of walker. She denies any nausea, vomiting, dyspnea, chest pain, fever or chills. She is being treated for urinary tract infection and bacteremia. She also had acute renal failure superimposed on chronic kidney disease. However, has not required dialysis so far. PHYSICAL EXAMINATION: Temperature 96.2 degrees Fahrenheit, heart rate 70 per minute and respiratory rate 18 per minute. Blood pressure 144/62 mmHg and oxygen saturation 94% on room air. Intake and output records from yesterday showed total intake 975 and output 1225 mL. Her head is atraumatic. Pupils are equal and reactive to light and sclerae are anicteric. Ears, nose and throat are unremarkable. Neck veins are not abnormally distended sitting upright. Trachea is midline and there is no thyroid enlargement. Heart sounds are regular and without a pericardial friction rub. Lungs sound clear to auscultation bilaterally. Abdomen: Soft, nontender and without a palpable organomegaly. Bowel sounds are normal. Extremities have no cyanosis or clubbing. Skin has no rash or ulcers. Neurologically, she is awake, alert and oriented times three. Today's labs show WBC count 7.9, hemoglobin 10.6 and hematocrit 31.4. Platelets 225. A vancomycin trough level was 11.1 yesterday. Today's chemistry shows sodium level 141, potassium 3.4, CO2 of 34, chloride 98, BUN 60, and creatinine 2.86. Glucose 220 and calcium 9.5. Her repeat blood cultures from 11/25 are negative so far. Her initial blood cultures on 11/24 were positive for Staphylococcus. Urine culture was positive for Proteus and Streptococcus group B. PROBLEMS: 1. Bacteremia and urinary tract infection. The patient remains on vancomycin and ceftriaxone. She is currently afebrile and her symptoms have improved significantly. 2. Acute renal failure superimposed on chronic kidney disease. The patient has no uremic symptoms and her kidney function has improved to almost her baseline. At present, there is no emergent indication for dialysis. 3. Hypokalemia. Potassium level has improved since yesterday with supplement. Her diuretics have been on hold. I suggest to continue with potassium supplement of 40 mEq twice a day and will recheck her electrolytes tomorrow morning. 4. Hypertension. Blood pressure is well controlled on current antihypertensive medications and volume status is well compensated. No change in medications is indicated. 5. Diabetes. Diabetes control seems reasonable with current insulin regimen and will need to adjust her long-acting insulin. 6. Anemia. Her anemia is mild and stable. It is most likely related to chronic kidney disease and acute infection. At present, no intervention is indicated. 7. Metabolic encephalopathy. The patient did have significant problems at the time of admission. However, her mentation has now improved back to baseline. Most likely her encephalopathy was related to bacteremia and urinary tract infection (UTI). I do not feel that she has uremic encephalopathy.
[2016-11-29 04:00] VITALS: BP 145/67
[2016-11-29 05:28] LABS: BASO % 0.5 % (0.0-1.0); EOS # 0.2 K/mm3 (0.0-0.50); LARGE UNSTAINED CELL # 0.4 K/mm3 (0.0-0.4); LYMPH # 2.3 K/mm3 (1.5-4.5); LYMPH % 27.6 % (24.0-44.0); MEAN CORPUSCULAR HEMOGLOBIN 31.1 pg (27.0-33.0); MEAN CORPUSCULAR HGB CONC 32.9 g/dl (32.0-36.5); MEAN CORPUSCULAR VOLUME 94.5 fl (80.0-96.0); MONO # 0.8 K/mm3 (0.0-0.8); MONO % 9.3 % (0.0-5.0); NEUTROPHILS # 4.5 K/mm3 (1.8-7.7); NEUTROPHILS % 54.6 % (36.0-66.0); PLATELET COUNT, AUTOMATED 222 k/mm3 (150-450); RED CELL DISTRIBUTION WIDTH 13.4 % (11.5-14.5); WHITE BLOOD COUNT 8.3 K/mm3 (4.0-10.0)
[2016-11-29 05:45] LABS: ALBUMIN 2.6 GM/DL (3.2-5.2); CALCIUM LEVEL 9.3 MG/DL (8.8-10.2); CREATININE FOR GFR 2.81 MG/DL (0.55-1.02); GLOMERULAR FILTRATION RATE 17.3 (>39); PHOSPHORUS LEVEL 3.1 MG/DL (2.5-4.9); POTASSIUM SERUM 3.7 MEQ/L (3.5-5.1); VANCOMYCIN RANDOM 13.9 UG/ML
[2016-11-29 07:25] VITALS: BP 138/89
--- NOTE | 2016-11-29 07:31 | IPNPDOC ---
Subjective Date Seen The patient was seen on 11/29/16. Subjective Chief Complaint/HPI The patient is a 76-year-old female admitted with a reason for visit of Altered Mental State. General: Denies: Chills, Fatigue, Malaise, Night Sweats, Normal Appetite, Other Symptoms, ROS Unobtainable Constitutional: Denies: Chills, Fatigue, Fever, Lethargy, Malaise, Night Sweats , Other, Weakness, Weight Loss Eyes: Denies: Conjunctivae inflammation, Eyelid inflammation, Other, Pain, Redness, Vision change ENT: Denies: Dysphagia, Ear Pain, Epistaxis, Head Aches, Other Symptoms, Post Nasal Drip, Sinus Congestion, Sore Throat Skin: Denies: Breakdown, Bruising, Dry, Itching, Jaundice, Lesions, Nail Changes, Other, Rash Pulmonary: Denies: Cough, Dyspnea, Other Symptoms, Pleuritic Chest Pain Cardiovascular: Denies: Chest Pain, Edema, Lt Headedness, Orthopnea, Other Symptoms, Palpitations, Paroxysmal Noc. Dyspnea Gastrointestinal: Denies: Abdominal Pain, Constipation, Diarrhea, Hematochezia , Melena, Nausea, Other Symptoms, Vomiting Genitourinary: Reports: Frequency, Denies: Dysuria, Hematuria, Incontinence, Other Symptoms, Retention Objective Physical Examination General Exam: Positive: Alert, Cooperative, No Acute Distress Eye Exam: Positive: Conjunctiva & lids normal, EOMI, PERRLA, Negative: Sclera icteric ENT Exam: Positive: Atraumatic, Mucous membr. moist/pink Neck Exam: Positive: Supple Chest Exam: Positive: Clear to auscultation, Normal air movement Heart Exam: Positive: Rate Normal, Regular Rhythm Telemetry: Positive: Bradycardia, Sinus Abdomen Exam: Positive: Normal bowel sounds, Soft, Negative: Tenderness Extremity Exam: Negative: Edema Psych Exam: Positive: Mental status NL, Oriented x 3 Assessment /Plan Problems (1) CKD (chronic kidney disease) Status: Acute Response to Treatment: Improving Problem Specific Plan: Consult Specialist, Repeat Labs Problem Text: acute on chronic, baseline is CKD V, not on dialysis. Does have right AV fistula if needed. creatinine continues to improve, nephrology consultation appreciated. diuretics on hold (lasix, metolazone) (2) UTI (urinary tract infection) Status: Acute Response to Treatment: Improving Discussed With: Patient Problem Specific Plan: Monitor Clinically, Repeat Labs Problem Text: Cultures positive for proteus and strep Group B Continue ceftriaxone - day #5 Feels her polyuria is improving. (3) Positive blood culture Status: Acute Response to Treatment: Progressing Problem Specific Plan: Monitor Clinically, Repeat Labs Problem Text: Bacteremia 1 - +staph epi - sensitive to vanco, tetracycline 2 - G+ cocci clusters 3/4 - NTD Renal dosing vancomycin. Continue ceftriaxone. (4) HTN (hypertension) Status: Chronic Problem Specific Plan: Monitor Clinically Problem Text: norvasc, coreg, hydralazine with hold parameters. (5) Hypercholesteremia Status: Chronic Problem Text: lipitor (6) Diabetes Status: Chronic Problem Specific Plan: Repeat Labs Problem Text: holding basal insulin continue with insulin sliding scale (7) Depression Status: Chronic Problem Specific Plan: Monitor Clinically Problem Text: continue cymbalta (8) CAD (coronary artery disease) Status: Chronic Problem Text: coreg, plavix, lipitor, asa (9) TIA (transient ischemic attack) Status: Chronic Problem Text: continue asa, plavix (10) Altered mental status Status: Resolved Response to Treatment: Progressing Discussed With: Patient Problem Specific Plan: Monitor Clinically, Repeat Labs Problem Text: Multifactorial etiology. Likely toxic metabolic encephalopathy secondary to UTI complicated with uremia, bacteremia. Further complicated with her multiple medical co-morbidities. Plan/VTE VTE Prophylaxis Ordered?: Yes Plan IVF: Discontinue Diet: Continue Current Activity: Continue Current Therapy: PT Medications: Start Antibiotics Diagnostics: Repeat Labs in AM, Obtain Cultures Continue IV antibiotics. Transfer to floor. Disposition Transfer to medical floor. Attempted to contact daughter Alex twice yesterday for updates. Will try again today. VS, I&O, 24H, Per Vital Signs/I&O Vital Signs Date Time Temp Pulse Resp B/P Pulse Ox O2 Delivery O2 Flow Rate FiO2 11/29/16 04:00 97.1 69 16 145/67 96 Room Air 11/26/16 16:00 2.0 I&O- Last 24 Hours up to 6 AM 11/29/16 06:00 Intake Total 1990 ml Output Total 1425 ml Balance 565 ml Laboratory Data 24H LABS Laboratory Tests 2 11/28/16 11:42: Bedside Glucose (Misc Panel) 321H 11/28/16 18:02: Bedside Glucose (Misc Panel) 298H 11/28/16 20:18: Bedside Glucose (Misc Panel) 324H 11/29/16 04:52: Albumin 2.6L, Blood Urea Nitrogen 51H, Creatinine 2.81H, Sodium Level 141, Potassium Level 3.7, Chloride Level 100, Carbon Dioxide Level 34H, Anion Gap 7L , White Blood Count 8.3, Red Blood Count 3.49L, Hemoglobin 10.9L, Hematocrit 33.0L, Mean Corpuscular Volume 94.5, Mean Corpuscular Hemoglobin 31.1, Mean Corpuscular Hemoglobin Concent 32.9, Red Cell Distribution Width 13.4, Platelet Count 222, Neutrophils (%) (Auto) 54.6, Lymphocytes (%) (Auto) 27.6, Monocytes ( %) (Auto) 9.3H, Eosinophils (%) (Auto) 3.0, Basophils (%) (Auto) 0.5, Neutrophils # (Auto) 4.5, Lymphocytes # (Auto) 2.3, Monocytes # (Auto) 0.8, Eosinophils # (Auto) 0.2, Basophils # (Auto) 0.0, Calcium Level 9.3, Glomerular Filtration Rate 17.3L, Large Unclassified Cells # 0.4, Large Unclassified Cells % 5.0H, Phosphorus Level 3.1, Random Vancomycin Level 13.9 CBC/BMP Laboratory Tests 11/29/16 04:52 Anion Gap 7 L, Red Blood Count 3.49 L, Mean Corpuscular Volume 94.5, Mean Corpuscular Hemoglobin 31.1, Mean Corpuscular Hemoglobin Concent 32.9, Red Cell Distribution Width 13.4, Neutrophils (%) (Auto) 54.6, Lymphocytes (%) (Auto) 27.6, Monocytes (%) (Auto) 9.3 H, Eosinophils (%) (Auto) 3.0, Basophils (%) ( Auto) 0.5, Neutrophils # (Auto) 4.5, Lymphocytes # (Auto) 2.3, Monocytes # (Auto ) 0.8, Eosinophils # (Auto) 0.2, Basophils # (Auto) 0.0 Microbiology Microbiology 11/25/16 Blood Culture - Preliminary, Resulted No Growth after 72 hours. All specime... 11/25/16 Blood Culture - Preliminary, Resulted No Growth after 72 hours. All specime... 11/24/16 Blood Culture - Preliminary, Resulted 11/24/16 Blood Culture - Final, Complete Staphylococcus Epidermidis Streptococcus Mitis 11/24/16 Urine Culture - Final, Complete Proteus Mirabilis Strep Agalactiae Group B ARLEY ROJO MD Nov 29, 2016 07:31
[2016-11-29] MEDS: POTASSIUM CHLORIDE 10 MEQ SR TABLET PO SCH ×2 (07:57→21:06)
[2016-11-29] MEDS: VITAMIN D 1,000 INTERNATIONAL UNITS TABLET PO SCH (07:59)
[2016-11-29] MEDS: CALCITRIOL 0.25 MCG CAP (S0169) PO SCH (07:59)
[2016-11-29] MEDS: **hydrALAZINE HCL** 25 MG TAB PO SCH ×2 (08:00→21:07)
[2016-11-29] MEDS: CARVedilol 6.25 MG TAB PO SCH ×2 (08:00→21:07)
[2016-11-29] MEDS: ASPIRIN 81 MG ENTERIC TAB PO SCH (08:01)
[2016-11-29] MEDS: FAMOTIDINE 20 MG TAB PO SCH ×2 (08:01→21:07)
[2016-11-29] MEDS: CLOPIDOGREL 75 MG TAB PO SCH (08:01)
[2016-11-29] MEDS: DULoxetine 30 MG CAP (CYMBALTA) PO SCH (08:01)
[2016-11-29] MEDS: GABAPENTIN 100 MG CAP PO SCH ×2 (08:01→21:06)
[2016-11-29] MEDS: amLODIPine 10 MG TAB PO SCH (08:01)
[2016-11-29] MEDS: HumaLOG INSULIN (NovoLOG) PER UNIT SC SCH ×4 (08:02→21:07)
[2016-11-29] MEDS ORDERED: VANCOMYCIN HCL 750 MG, VIAL MATE ADAPTER 1 EACH in D5W 250 ML IV SCH (10:00)
[2016-11-29 12:00] VITALS: BP 169/74
[2016-11-29] MEDS: cefTRIAXone SOD 1 GM in D5W MINI-BAG PLUS 50 ML IV SCH (12:52)
--- NOTE | 2016-11-29 13:19 | IPN ---
DATE: 11/29/2016 Ms. Loco is seen this morning on her bedside. She is feeling better and continues to improve in her energy and strength. She is able to walk short distance with the help of walker. Her mentation has improved all the way back to baseline. She denies any nausea, vomiting, dyspnea or chest pain. She is being treated for urinary tract infection and bacteremia. She also had acute renal failure superimposed on chronic kidney disease, which has improved significantly since admission. The patient reports good appetite and has been eating well. PHYSICAL EXAMINATION Temperature 96.0 degrees Fahrenheit, heart rate 58 per minute and respiratory rate 18 per minute. Blood pressure 138/89 mmHg and oxygen saturation 96% on room air. Intake and output records from yesterday showed total intake 2010 and output 1150 mL. Head is atraumatic. Ears, nose and throat are unremarkable. Pupils are equal and reactive to light and sclera is anicteric. Neck is supple and without jugular venous distention (JVD) or thyroid enlargement. Heart sounds are regular and lungs sound clear to auscultation bilaterally. Abdomen is soft and nontender and without a palpable organomegaly. Bowel sounds are normal. Extremities have no cyanosis or clubbing. Skin is dry and without any rash or ulcers. Neurologically, she is awake, alert and oriented times three. She has no focal neurological deficit. Today's labs show WBC count 8.3, hemoglobin 10.9 and hematocrit 33.0. Platelets are 222. Sodium is 141 and potassium 3.7. BUN 51 and creatinine 2.81. Glucose 173, calcium 9.3 and phosphorus 3.1. PROBLEMS: 1. Acute renal failure superimposed on chronic kidney disease. Kidney function has improved to baseline or slightly better. At this point, she has no uremic symptoms and no electrolyte or metabolic problems. Her diuretics have been on hold since admission. We will probably resume her diuretics in the next 24 hours at a decreased dose. 2. Hypokalemia. Potassium level has improved to normal range, and I am going to cut down her potassium chloride dose to 20 mEq twice a day. She has been receiving 40 mEq twice a day. She is eating better now and that is also likely to help with her hypokalemia. We will recheck her electrolytes tomorrow and make further adjustments as needed. 2. Hypertension. Blood pressure control has improved, and she will continue with current antihypertensives, including amlodipine 10 mg daily, Carvedilol 6.25 mg twice a day, and hydralazine 25 mg twice a day. 3. Blood sugars are still running high. I suggest to increase her long-acting insulin and continue with coverage in order to get better control of her diabetes. 4. Staphylococcus bacteremia. The patient has been on vancomycin and ceftriaxone. She is afebrile and feeling well. 5. Urinary tract infection (UTI). The patient remains on ceftriaxone and symptoms have improved. 6. Generalized deconditioning and weakness. The patient is still weak and is likely to require physical therapy and maybe she will also need physical therapy as outpatient. She can be transferred to regular medical floor.
[2016-11-29] MEDS: ATORVASTATIN 10 MG TAB PO SCH (21:06)
[2016-11-29] MEDS: LEVEMIR (INSULIN DETEMIR) 1 UNITS/0.01ML SC SCH (21:08)
[2016-11-30] VITALS: BP 164/56
[2016-11-30 06:00] VITALS: BP 145/58
[2016-11-30 07:11] LABS: BASO % 0.4 % (0.0-1.0); EOS # 0.2 K/mm3 (0.0-0.50); LARGE UNSTAINED CELL # 0.4 K/mm3 (0.0-0.4); LARGE UNSTAINED CELL % 4.7 % (0.0-4.0); LYMPH % 23.6 % (24.0-44.0); MEAN CORPUSCULAR HEMOGLOBIN 30.7 pg (27.0-33.0); MEAN CORPUSCULAR HGB CONC 32.9 g/dl (32.0-36.5); MEAN CORPUSCULAR VOLUME 93.4 fl (80.0-96.0); MONO # 0.8 K/mm3 (0.0-0.8); MONO % 9.9 % (0.0-5.0); NEUTROPHILS # 4.9 K/mm3 (1.8-7.7); NEUTROPHILS % 58.4 % (36.0-66.0); PLATELET COUNT, AUTOMATED 207 k/mm3 (150-450); RED CELL DISTRIBUTION WIDTH 13.5 % (11.5-14.5); WHITE BLOOD COUNT 8.3 K/mm3 (4.0-10.0)
[2016-11-30 07:33] LABS: ALBUMIN 2.6 GM/DL (3.2-5.2); ANION GAP 10 MEQ/L (8-16); BLOOD UREA NITROGEN 53 MG/DL (7-18); CALCIUM LEVEL 9.7 MG/DL (8.8-10.2); CARBON DIOXIDE LEVEL 31 MEQ/L (21-32); CHLORIDE LEVEL 100 MEQ/L (98-107); CREATININE FOR GFR 2.98 MG/DL (0.55-1.02); GLOMERULAR FILTRATION RATE 16.2 (>39); GLUCOSE, FASTING 230 MG/DL (83-110); PHOSPHORUS LEVEL 2.6 MG/DL (2.5-4.9); POTASSIUM SERUM 3.8 MEQ/L (3.5-5.1); SODIUM LEVEL 141 MEQ/L (136-145)
[2016-11-30] MEDS: HumaLOG INSULIN (NovoLOG) PER UNIT SC SCH ×4 (07:45→20:26)
[2016-11-30] MEDS: MIRALAX *UNIT DOSE* 17GM PACKET PO PRN (08:22)
[2016-11-30] MEDS: amLODIPine 10 MG TAB PO SCH (08:22)
[2016-11-30] MEDS: CALCITRIOL 0.25 MCG CAP (S0169) PO SCH (08:22)
[2016-11-30] MEDS: FAMOTIDINE 20 MG TAB PO SCH ×2 (08:22→20:23)
[2016-11-30] MEDS: ASPIRIN 81 MG ENTERIC TAB PO SCH (08:22)
[2016-11-30] MEDS: POTASSIUM CHLORIDE 10 MEQ SR TABLET PO SCH ×2 (08:23→20:24)
[2016-11-30] MEDS: VITAMIN D 1,000 INTERNATIONAL UNITS TABLET PO SCH (08:23)
[2016-11-30] MEDS: CLOPIDOGREL 75 MG TAB PO SCH (08:23)
[2016-11-30] MEDS: **hydrALAZINE HCL** 25 MG TAB PO SCH ×2 (08:24→20:23)
[2016-11-30] MEDS: CARVedilol 6.25 MG TAB PO SCH ×2 (08:24→20:25)
[2016-11-30] MEDS: GABAPENTIN 100 MG CAP PO SCH ×2 (08:25→20:24)
[2016-11-30] MEDS: DULoxetine 30 MG CAP (CYMBALTA) PO SCH (08:25)
--- NOTE | 2016-11-30 10:38 | IPNPDOC ---
Subjective Date Seen The patient was seen on 11/30/16. Subjective Chief Complaint/HPI The patient is a 76-year-old female admitted with a reason for visit of Altered Mental State. General: Denies: Chills, Fatigue, Malaise, Night Sweats, Normal Appetite, Other Symptoms, ROS Unobtainable Constitutional: Denies: Chills, Fatigue, Fever, Lethargy, Malaise, Night Sweats , Other, Weakness, Weight Loss Eyes: Denies: Conjunctivae inflammation, Eyelid inflammation, Other, Pain, Redness, Vision change ENT: Denies: Dysphagia, Ear Pain, Epistaxis, Head Aches, Other Symptoms, Post Nasal Drip, Sinus Congestion, Sore Throat Skin: Denies: Breakdown, Bruising, Dry, Itching, Jaundice, Lesions, Nail Changes, Other, Rash Pulmonary: Denies: Cough, Dyspnea, Other Symptoms, Pleuritic Chest Pain Cardiovascular: Denies: Chest Pain, Edema, Lt Headedness, Orthopnea, Other Symptoms, Palpitations, Paroxysmal Noc. Dyspnea Gastrointestinal: Denies: Abdominal Pain, Constipation, Diarrhea, Hematochezia , Melena, Nausea, Other Symptoms, Vomiting Genitourinary: Reports: Frequency, Denies: Dysuria, Hematuria, Incontinence, Other Symptoms, Retention Objective Physical Examination General Exam: Positive: Alert, Cooperative, No Acute Distress Eye Exam: Positive: Conjunctiva & lids normal, EOMI, PERRLA, Negative: Sclera icteric ENT Exam: Positive: Atraumatic, Mucous membr. moist/pink Neck Exam: Positive: Supple Chest Exam: Positive: Clear to auscultation, Normal air movement Heart Exam: Positive: Rate Normal, Regular Rhythm Abdomen Exam: Positive: Normal bowel sounds, Soft, Negative: Tenderness Extremity Exam: Negative: Edema Psych Exam: Positive: Oriented x 3 Assessment /Plan Problems (1) Altered mental status Status: Resolved Response to Treatment: Progressing Discussed With: Patient Problem Specific Plan: Monitor Clinically, Repeat Labs Problem Text: Resolved. (2) CKD (chronic kidney disease) Status: Chronic Response to Treatment: Improving Problem Specific Plan: Consult Specialist, Repeat Labs Problem Text: acute on chronic, baseline is CKD V, not on dialysis. Does have right AV fistula if needed. Fluid discontinued, renal function improving, nephrology consultation appreciated. diuretics on hold (lasix, metolazone) (3) UTI (urinary tract infection) Status: Acute Response to Treatment: Improving Discussed With: Patient Problem Specific Plan: Monitor Clinically, Repeat Labs Problem Text: Cultures positive for proteus and strep Group B Continue ceftriaxone - day #6 (4) Positive blood culture Status: Acute Response to Treatment: Progressing Problem Specific Plan: Monitor Clinically, Repeat Labs Problem Text: Bacteremia 1 - +staph epi, strep mitis - sensitive to vanco, tetracycline 2 - G+ cocci clusters 3/4 - NTD Discussed with micro, although sensitivities displayed do not show data for staph epi, it is sensitive to ceftriaxone. Vanco discontinued. Continue ceftriaxone. (5) HTN (hypertension) Status: Chronic Problem Specific Plan: Monitor Clinically Problem Text: norvasc, coreg, hydralazine with hold parameters. (6) Hypercholesteremia Status: Chronic Problem Text: lipitor (7) Diabetes Status: Chronic Problem Specific Plan: Repeat Labs Problem Text: holding basal insulin continue with insulin sliding scale (8) Depression Status: Chronic Problem Specific Plan: Monitor Clinically Problem Text: continue cymbalta (9) CAD (coronary artery disease) Status: Chronic Problem Text: coreg, plavix, lipitor, asa (10) TIA (transient ischemic attack) Status: Chronic Problem Text: continue asa, plavix Plan/VTE VTE Prophylaxis Ordered?: Yes Plan IVF: Discontinue Diet: Continue Current Activity: Continue Current Therapy: PT Medications: Start Antibiotics Diagnostics: Repeat Labs in AM, Obtain Cultures VS, I&O, 24H, Fishbone Vital Signs/I&O Vital Signs Date Time Temp Pulse Resp B/P Pulse Ox O2 Delivery O2 Flow Rate FiO2 11/30/16 08:24 133/64 11/30/16 08:24 92 11/30/16 06:00 98.7 20 96 Room Air 11/26/16 16:00 2.0 I&O- Last 24 Hours up to 6 AM 11/30/16 06:00 Intake Total 660 ml Output Total 600 ml Balance 60 ml Laboratory Data 24H LABS Laboratory Tests 2 11/29/16 12:01: Bedside Glucose (Misc Panel) 387H 11/29/16 16:29: Bedside Glucose (Misc Panel) 344H 11/29/16 20:11: Bedside Glucose (Misc Panel) 388H 11/30/16 06:57: Albumin 2.6L, Blood Urea Nitrogen 53H, Creatinine 2.98H, Sodium Level 141, Potassium Level 3.8, Chloride Level 100, Carbon Dioxide Level 31, Anion Gap 10, White Blood Count 8.3, Red Blood Count 3.37L, Hemoglobin 10.3L, Hematocrit 31.5L , Mean Corpuscular Volume 93.4, Mean Corpuscular Hemoglobin 30.7, Mean Corpuscular Hemoglobin Concent 32.9, Red Cell Distribution Width 13.5, Platelet Count 207, Neutrophils (%) (Auto) 58.4, Lymphocytes (%) (Auto) 23.6L, Monocytes (%) (Auto) 9.9H, Eosinophils (%) (Auto) 3.0, Basophils (%) (Auto) 0.4, Neutrophils # (Auto) 4.9, Lymphocytes # (Auto) 2.0, Monocytes # (Auto) 0.8, Eosinophils # (Auto) 0.2, Basophils # (Auto) 0.0, Calcium Level 9.7, Glomerular Filtration Rate 16.2L, Large Unclassified Cells # 0.4, Large Unclassified Cells % 4.7H, Phosphorus Level 2.6 CBC/BMP Laboratory Tests 11/30/16 06:57 Anion Gap 10, Red Blood Count 3.37 L, Mean Corpuscular Volume 93.4, Mean Corpuscular Hemoglobin 30.7, Mean Corpuscular Hemoglobin Concent 32.9, Red Cell Distribution Width 13.5, Neutrophils (%) (Auto) 58.4, Lymphocytes (%) (Auto) 23.6 L, Monocytes (%) (Auto) 9.9 H, Eosinophils (%) (Auto) 3.0, Basophils (%) ( Auto) 0.4, Neutrophils # (Auto) 4.9, Lymphocytes # (Auto) 2.0, Monocytes # (Auto ) 0.8, Eosinophils # (Auto) 0.2, Basophils # (Auto) 0.0 Microbiology Microbiology 11/25/16 Blood Culture - Preliminary, Resulted No Growth after 72 hours. All specime... 11/25/16 Blood Culture - Preliminary, Resulted No Growth after 72 hours. All specime... 11/24/16 Blood Culture - Preliminary, Resulted 11/24/16 Blood Culture - Final, Complete Staphylococcus Epidermidis Streptococcus Mitis 11/24/16 Urine Culture - Final, Complete Proteus Mirabilis Strep Agalactiae B ARLEY ROJO MD Nov 30, 2016 10:38
[2016-11-30 11:18] LABS: ALBUMIN/GLOBULIN RATIO 0.67 (1.00-1.93); ALKALINE PHOSPHATASE 56 U/L (45-117); ALT/SGPT 19 U/L (12-78); AST/SGOT 16 U/L (15-37); BILIRUBIN,DIRECT < 0.1 MG/DL (0.0-0.2); BILIRUBIN,TOTAL 0.3 MG/DL (0.2-1.0); TOTAL PROTEIN 6.5 GM/DL (6.4-8.2)
[2016-11-30 14:00] VITALS: BP 136/66
[2016-11-30] MEDS: cefTRIAXone SOD 1 GM in D5W MINI-BAG PLUS 50 ML IV SCH (14:57)
--- NOTE | 2016-11-30 15:09 | REP ---
RIGHT UPPER QUADRANT SONOGRAPHY: HISTORY: Right upper quadrant pain and tenderness. Bacteremia. COMPARISON STUDY: CT study from November 25, 2016. FINDINGS: Scanning through the right upper quadrant of the abdomen demonstrates a normal sized, thin-walled gallbladder without evidence of stone or polyp. Common bile duct is normal measuring 0.5 cm in greatest diameter. No focal liver lesion is seen. Liver size is normal. No pancreatic abnormality is observed. No right renal abnormality is seen. There is no evidence of ascites. The right kidney measures 11.1 x 5.3 x 4.9 cm. There is a 0.5 cm cortical cyst in the mid pole position of the right kidney. IMPRESSION: Negative right upper quadrant sonography. Signed by Lopez Alexander MD 11/30/2016 03:36 P
[2016-11-30] MEDS: ATORVASTATIN 10 MG TAB PO SCH (20:23)
[2016-11-30] MEDS: LEVEMIR (INSULIN DETEMIR) 1 UNITS/0.01ML SC SCH (20:25)
[2016-11-30 22:00] VITALS: BP 145/68
[2016-12-01 06:00] VITALS: BP 164/73
[2016-12-01 07:17] LABS: BASO % 0.6 % (0.0-1.0); EOS # 0.2 K/mm3 (0.0-0.50); EOS % 3.1 % (0.0-3.0); LARGE UNSTAINED CELL # 0.3 K/mm3 (0.0-0.4); LARGE UNSTAINED CELL % 3.3 % (0.0-4.0); LYMPH # 2.4 K/mm3 (1.5-4.5); LYMPH % 30.8 % (24.0-44.0); MEAN CORPUSCULAR HEMOGLOBIN 30.6 pg (27.0-33.0); MEAN CORPUSCULAR VOLUME 95.7 fl (80.0-96.0); MONO # 0.6 K/mm3 (0.0-0.8); MONO % 7.9 % (0.0-5.0); NEUTROPHILS # 4.3 K/mm3 (1.8-7.7); NEUTROPHILS % 54.3 % (36.0-66.0); PLATELET COUNT, AUTOMATED 235 k/mm3 (150-450); RED CELL DISTRIBUTION WIDTH 13.7 % (11.5-14.5); WHITE BLOOD COUNT 7.9 K/mm3 (4.0-10.0)
[2016-12-01 07:33] LABS: ALBUMIN 2.7 GM/DL (3.2-5.2); CALCIUM LEVEL 9.9 MG/DL (8.8-10.2); CREATININE FOR GFR 2.89 MG/DL (0.55-1.02); GLOMERULAR FILTRATION RATE 16.8 (>39); PHOSPHORUS LEVEL 2.7 MG/DL (2.5-4.9); POTASSIUM SERUM 4.6 MEQ/L (3.5-5.1)
[2016-12-01] MEDS: GABAPENTIN 100 MG CAP PO SCH ×2 (08:11→20:29)
[2016-12-01] MEDS: HumaLOG INSULIN (NovoLOG) PER UNIT SC SCH ×4 (08:11→20:40)
[2016-12-01] MEDS: HEPARIN SOD (PORCINE) 5000 UNITS/ML VIAL SQ SCH ×2 (08:11→20:29)
[2016-12-01] MEDS: CLOPIDOGREL 75 MG TAB PO SCH (08:11)
[2016-12-01] MEDS: CALCITRIOL 0.25 MCG CAP (S0169) PO SCH (08:12)
[2016-12-01] MEDS: FAMOTIDINE 20 MG TAB PO SCH ×2 (08:12→20:29)
[2016-12-01] MEDS: VITAMIN D 1,000 INTERNATIONAL UNITS TABLET PO SCH (08:12)
[2016-12-01] MEDS: CARVedilol 6.25 MG TAB PO SCH ×2 (08:12→20:29)
[2016-12-01] MEDS: **hydrALAZINE HCL** 25 MG TAB PO SCH ×3 (08:12→20:28)
[2016-12-01] MEDS: POTASSIUM CHLORIDE 10 MEQ SR TABLET PO SCH (08:13)
[2016-12-01] MEDS: amLODIPine 10 MG TAB PO SCH (08:13)
[2016-12-01] MEDS: DULoxetine 30 MG CAP (CYMBALTA) PO SCH (08:13)
[2016-12-01] MEDS: ASPIRIN 81 MG ENTERIC TAB PO SCH (08:13)
[2016-12-01] MEDS ORDERED: diphenhydrAMINE 12.5MG/5ML ELIXIR UDC PO ONE (09:00)
--- NOTE | 2016-12-01 12:16 | IPN ---
DATE: 12/01/2016 Mrs. Loco is seen this morning on her bedside. She is feeling better today and reports that her abdominal pain has improved. She still has complaint of constipation but denies any nausea or vomiting. She has no dyspnea, chest pain, fever or chills. She did get up today and walked with assistance. On physical examin, temperature 97.7 degrees Fahrenheit, heart rate 68 per minute and respiratory rate 14 per minute. Blood pressure 164/73 mmHg and oxygen saturation 96% on room air. Head is atraumatic. Ears, nose and throat are unremarkable. Pupils are equal and reactive to light and sclera is anicteric. Heart sounds are regular and lungs clear to auscultation. Abdomen is soft and nontender. Bowel sounds are normal and she has no palpable organomegaly. Right upper quadrant tenderness has improved significantly since yesterday. Extremities have no cyanosis or clubbing. Skin has no rash or ulcers. Neurologically, she has no focal deficit. Today's labs show WBC count 7.9, hemoglobin 11.1 and hematocrit 34.7. Sodium 140 and potassium 4.6. BUN 52 and creatinine 2.89. Glucose 244 and calcium 9.9. PROBLEMS: 1. Acute renal failure superimposed on chronic kidney disease. Her kidney function has leveled off and this is most likely her baseline kidney function. At present, she has no uremic symptoms and no electrolyte or metabolic acidosis problems. We will monitor her kidney function. 2. Hypokalemia. Her potassium level has corrected now and her oral intake has improved. She is currently off diuretics, so I am going to stop her potassium supplement due to risk of hyperkalemia. 3. Bacteremia. Patient is currently afebrile and remains on ceftriaxone. Her vancomycin has been stopped. 4. Hypertension. Blood pressure seems to be slightly on the high side. Her medications have been changed due to acute renal failure and we will have to make further adjustments if needed. She is currently on hydralazine 25 mg twice a day and we will increase it to three times a day. She has been off diuretics. 6. Hyperparathyroidism. Patient will continue with her calcitriol 0.25 mcg daily. 7. Deconditioning and weakness. Patient seems to be doing better and physical therapy evaluation is pending. Once she is cleared by physical therapy, she can be discharged to home. I discussed the care plan with the Dr. Foley.
[2016-12-01] MEDS: cefTRIAXone SOD 1 GM in D5W MINI-BAG PLUS 50 ML IV SCH (12:31)
--- NOTE | 2016-12-01 12:51 | IPNPDOC ---
Subjective Date Seen The patient was seen on 12/01/16. Subjective Chief Complaint/HPI The patient is a 76-year-old female admitted with a reason for visit of Altered Mental State. Events since last encounter no acute events overnight. con't to reported mild lightheadedness, chronic back and le pain. Denied sob, cp, f/v/ abd pain General: Denies: Chills, Malaise Constitutional: Denies: Chills, Fever Eyes: Denies: Pain, Vision change ENT: Denies: Head Aches Skin: Reports: Breakdown (back wp) Pulmonary: Reports: Cough Cardiovascular: Denies: Chest Pain, Palpitations Gastrointestinal: Denies: Nausea, Vomiting Genitourinary: Denies: Dysuria, Frequency Psych: Reports: Anxiety Objective Physical Examination General Exam: Positive: Alert, Cooperative, No Acute Distress Eye Exam: Positive: Conjunctiva & lids normal, EOMI, PERRLA, Negative: Sclera icteric ENT Exam: Positive: Atraumatic, Mucous membr. moist/pink Neck Exam: Positive: Supple Chest Exam: Positive: Clear to auscultation, Normal air movement Heart Exam: Positive: Rate Normal, Regular Rhythm Abdomen Exam: Positive: Normal bowel sounds, Soft, Negative: Tenderness Extremity Exam: Negative: Edema Skin Exam: Positive: Breakdown (upper back from previous injury, healing) Psych Exam: Positive: Oriented x 3 Assessment /Plan Problems (1) Altered mental status Status: Resolved Response to Treatment: Progressing Discussed With: Patient Problem Specific Plan: Monitor Clinically, Repeat Labs Problem Text: Resolved. (2) CKD (chronic kidney disease) Status: Chronic Response to Treatment: Improving Problem Specific Plan: Consult Specialist, Repeat Labs Problem Text: acute on chronic, baseline is CKD V, not on dialysis. Does have right AV fistula if needed. Fluid discontinued, renal function improving, nephrology consultation appreciated. diuretics on hold (lasix, metolazone), restart as per nephrology (3) UTI (urinary tract infection) Status: Acute Response to Treatment: Improving Discussed With: Patient Problem Specific Plan: Monitor Clinically, Repeat Labs Problem Text: Cultures positive for proteus and strep Group B Continue ceftriaxone - day #7 (4) Positive blood culture Status: Acute Response to Treatment: Progressing Problem Specific Plan: Monitor Clinically, Repeat Labs Problem Text: Bacteremia 1 - +staph epi, strep mitis - sensitive to vanco, tetracycline 2 - G+ cocci clusters 3/4 - NTD Discussed with micro, although sensitivities displayed do not show data for staph epi, it is sensitive to ceftriaxone. Vanco discontinued. Continue ceftriaxone. (5) HTN (hypertension) Status: Chronic Problem Specific Plan: Monitor Clinically Problem Text: norvasc, coreg, hydralazine with hold parameters. hydralazine dose adjusted (6) Hypercholesteremia Status: Chronic Problem Text: lipitor (7) Diabetes Status: Chronic Problem Specific Plan: Repeat Labs Problem Text: basal insulin, and bolus insulin f/u fs (8) Depression Status: Chronic Problem Specific Plan: Monitor Clinically Problem Text: continue cymbalta (9) CAD (coronary artery disease) Status: Chronic Problem Text: coreg, plavix, lipitor, asa (10) TIA (transient ischemic attack) Status: Chronic Problem Text: continue asa, plavix (11) Physical deconditioning Status: Acute Problem Text: pt, nutrition consult improving Plan/VTE VTE Prophylaxis Ordered?: Yes (heparin SQ) Plan IVF: Discontinue Diet: Continue Current Activity: Continue Current Therapy: PT Medications: Start Antibiotics Diagnostics: Repeat Labs in AM, Obtain Cultures Disposition pending PT, check CRP tomorrow and dc antibiotics if CRP improved, VS, I&O, 24H, Fishbone Vital Signs/I&O Vital Signs Date Time Temp Pulse Resp B/P Pulse Ox O2 Delivery O2 Flow Rate FiO2 12/01/16 08:13 67 164/73 12/01/16 07:57 Room Air 12/01/16 06:00 97.7 14 96 11/26/16 16:00 2.0 I&O- Last 24 Hours up to 6 AM 12/01/16 06:00 Intake Total 1790 ml Output Total 1325 ml Balance 465 ml Laboratory Data 24H LABS Laboratory Tests 2 11/30/16 14:42: Bedside Glucose (Misc Panel) 271H 11/30/16 18:03: Bedside Glucose (Misc Panel) 273H 11/30/16 20:16: Bedside Glucose (Misc Panel) 275H 12/01/16 06:46: Albumin 2.7L, Blood Urea Nitrogen 52H, Creatinine 2.89H, Sodium Level 140, Potassium Level 4.6#, Chloride Level 100, Carbon Dioxide Level 32, Anion Gap 8, White Blood Count 7.9, Red Blood Count 3.62L, Hemoglobin 11.1L, Hematocrit 34.7L , Mean Corpuscular Volume 95.7, Mean Corpuscular Hemoglobin 30.6, Mean Corpuscular Hemoglobin Concent 32.0, Red Cell Distribution Width 13.7, Platelet Count 235, Neutrophils (%) (Auto) 54.3, Lymphocytes (%) (Auto) 30.8, Monocytes ( %) (Auto) 7.9H, Eosinophils (%) (Auto) 3.1H, Basophils (%) (Auto) 0.6, Neutrophils # (Auto) 4.3, Lymphocytes # (Auto) 2.4, Monocytes # (Auto) 0.6, Eosinophils # (Auto) 0.2, Basophils # (Auto) 0.0, Calcium Level 9.9, Glomerular Filtration Rate 16.8L, Large Unclassified Cells # 0.3, Large Unclassified Cells % 3.3, Phosphorus Level 2.7 12/01/16 11:23: Bedside Glucose (Misc Panel) 395H CBC/BMP Laboratory Tests 12/01/16 06:46 Anion Gap 8, Red Blood Count 3.62 L, Mean Corpuscular Volume 95.7, Mean Corpuscular Hemoglobin 30.6, Mean Corpuscular Hemoglobin Concent 32.0, Red Cell Distribution Width 13.7, Neutrophils (%) (Auto) 54.3, Lymphocytes (%) (Auto) 30.8, Monocytes (%) (Auto) 7.9 H, Eosinophils (%) (Auto) 3.1 H, Basophils (%) ( Auto) 0.6, Neutrophils # (Auto) 4.3, Lymphocytes # (Auto) 2.4, Monocytes # (Auto ) 0.6, Eosinophils # (Auto) 0.2, Basophils # (Auto) 0.0 Microbiology Microbiology 11/25/16 Blood Culture - Final, Complete NO GROWTH AFTER 5 DAYS 11/25/16 Blood Culture - Final, Complete NO GROWTH AFTER 5 DAYS 11/24/16 Blood Culture - Final, Complete Staphylococcus Epidermidis 11/24/16 Blood Culture - Final, Complete Staphylococcus Epidermidis Streptococcus Mitis 11/24/16 Urine Culture - Final, Complete Proteus Mirabilis Strep Agalactiae Group B VINI HILL MD Dec 01, 2016 12:51
[2016-12-01 14:00] VITALS: BP 130/52
[2016-12-01 17:23] VITALS: BP 174/72
[2016-12-01 20:13] VITALS: BP 187/81
[2016-12-01] MEDS: ATORVASTATIN 10 MG TAB PO SCH (20:29)
[2016-12-01] MEDS: LEVEMIR (INSULIN DETEMIR) 1 UNITS/0.01ML SC SCH (20:30)
[2016-12-01] MEDS: MIRALAX *UNIT DOSE* 17GM PACKET PO PRN (20:40)
[2016-12-01 22:00] VITALS: BP 183/81
[2016-12-02 06:00] VITALS: BP 130/61
[2016-12-02 07:06] LABS: MEAN CORPUSCULAR HEMOGLOBIN 31.8 pg (27.0-33.0); MEAN CORPUSCULAR HGB CONC 33.4 g/dl (32.0-36.5); MEAN CORPUSCULAR VOLUME 95.3 fl (80.0-96.0); WHITE BLOOD COUNT 8.2 K/mm3 (4.0-10.0)
[2016-12-02 07:21] LABS: CALCIUM LEVEL 9.2 MG/DL (8.8-10.2); CREATININE FOR GFR 2.94 MG/DL (0.55-1.02); GLOMERULAR FILTRATION RATE 16.4 (>39); POTASSIUM SERUM 3.8 MEQ/L (3.5-5.1)
[2016-12-02] MEDS: HumaLOG INSULIN (NovoLOG) PER UNIT SC SCH ×4 (07:41→21:00)
[2016-12-02] MEDS: HEPARIN SOD (PORCINE) 5000 UNITS/ML VIAL SQ SCH ×2 (08:38→22:46)
[2016-12-02] MEDS: CARVedilol 6.25 MG TAB PO SCH ×2 (08:38→22:43)
[2016-12-02] MEDS: VITAMIN D 1,000 INTERNATIONAL UNITS TABLET PO SCH (08:38)
[2016-12-02] MEDS: DULoxetine 30 MG CAP (CYMBALTA) PO SCH (08:39)
[2016-12-02] MEDS: GABAPENTIN 100 MG CAP PO SCH ×2 (08:39→22:44)
[2016-12-02] MEDS: CALCITRIOL 0.25 MCG CAP (S0169) PO SCH (08:39)
[2016-12-02] MEDS: ASPIRIN 81 MG ENTERIC TAB PO SCH (08:39)
[2016-12-02] MEDS: MIRALAX *UNIT DOSE* 17GM PACKET PO SCH ×2 (08:39→22:43)
[2016-12-02] MEDS: amLODIPine 10 MG TAB PO SCH (08:40)
[2016-12-02] MEDS: CLOPIDOGREL 75 MG TAB PO SCH (08:40)
[2016-12-02] MEDS: **hydrALAZINE HCL** 25 MG TAB PO SCH ×3 (08:40→22:44)
[2016-12-02] MEDS: diphenhydrAMINE INJ 50MG/ML VIAL (J1200) IV PRN ×2 (08:57→23:05)
[2016-12-02] MEDS: SENOKOT S TAB PO SCH ×2 (08:57→22:44)
[2016-12-02] MEDS: clonazePAM 0.5 MG TAB PO PRN ×2 (08:57→23:05)
[2016-12-02] MEDS: FAMOTIDINE 20 MG TAB PO SCH ×2 (09:00→22:44)
--- NOTE | 2016-12-02 11:38 | IPN ---
DATE: 12/02/2016 Mrs. Loco is seen this morning on her bed side. She has c/o itching but denies any nausea, vomiting, fever or chills. She remains week and has difficulty walking. PHYSICAL EXAMINATION: Temperature 99.5 degrees Fahrenheit, heart rate 74 per minute and respiratory rate 18 per minute. Blood pressure 154/70 mmHg. Head is atraumatic. Ears, nose and throat are unremarkable. Pupils are equal and reactive to light. Sclera is anicteric. Neck is supple and without any JVD or thyroid enlargement. Heart sounds are regular and lungs clear to auscultation bilaterally. Abdomen is soft and nontender and without a palpable organomegaly. Bowel sounds are normal. Extremities have no cyanosis or clubbing. Skin has no obvious rash. Neurologically she is at her baseline mentation. Today's labs show WBC count 8.2, hemoglobin 10.7 and hematocrit 31.9. Sodium 140, potassium 3.8. BUN is 54 and creatinine 2.98. Glucose 199 and calcium 9.2. PROBLEMS: 1. Acute renal failure superimposed on chronic kidney disease. No significant change in kidney function. This is about her baseline. At present, I do not feel that she has any overt uremic symptoms. I will continue to monitor her kidney function without intervention off dialysis. 2. Bacteremia and urinary tract infection. The patient has been on antibiotics since admission. She is still receiving ceftriaxone 1 gram every 24 hours. Initially she also received vancomycin, which has been stopped. The source of her bacteremia was not identified. I feel that 10 days of IV antibiotic is probably adequate. 3. Hypertension. Blood pressure control is reasonable and we will continue with current antihypertensive meds. 4. Generalized weakness and deconditioning. Patient will need physical therapy in order to regain her strength. 5. Diabetes. She remains on insulin per coverage. [facility]
[2016-12-02] MEDS: cefTRIAXone SOD 1 GM in D5W MINI-BAG PLUS 50 ML IV SCH (12:51)
[2016-12-02 14:00] VITALS: BP 152/68
--- NOTE | 2016-12-02 19:34 | IPNPDOC ---
Subjective Date Seen The patient was seen on 12/02/16. Subjective Chief Complaint/HPI The patient is a 76-year-old female admitted with a reason for visit of Altered Mental State. Events since last encounter no acute events, reported diffuse body itch no rash, denied cp/pal/n/v/abd pain Objective Physical Examination General Exam: Positive: Alert, Cooperative, No Acute Distress Eye Exam: Positive: Conjunctiva & lids normal, EOMI, PERRLA, Negative: Sclera icteric ENT Exam: Positive: Atraumatic, Mucous membr. moist/pink Neck Exam: Positive: Supple Chest Exam: Positive: Clear to auscultation, Normal air movement Heart Exam: Positive: Rate Normal, Regular Rhythm Abdomen Exam: Positive: Normal bowel sounds, Soft, Negative: Tenderness Extremity Exam: Negative: Edema Skin Exam: Positive: Breakdown (upper back from previous injury, healing) Psych Exam: Positive: Oriented x 3 Assessment /Plan Problems (1) Altered mental status Status: Resolved Response to Treatment: Progressing Discussed With: Patient Problem Specific Plan: Monitor Clinically, Repeat Labs Problem Text: Resolved. (2) CKD (chronic kidney disease) Status: Chronic Response to Treatment: Improving Problem Specific Plan: Consult Specialist, Repeat Labs Problem Text: acute on chronic, baseline is CKD V, not on dialysis. Does have right AV fistula if needed. Fluid discontinued, renal function improving, nephrology consultation appreciated. diuretics on hold (lasix, metolazone), restart as per nephrology (3) UTI (urinary tract infection) Status: Acute Response to Treatment: Improving Discussed With: Patient Problem Specific Plan: Monitor Clinically, Repeat Labs Problem Text: Cultures positive for proteus and strep Group B Continue ceftriaxone - day #8 (4) Positive blood culture Status: Acute Response to Treatment: Progressing Problem Specific Plan: Monitor Clinically, Repeat Labs Problem Text: Bacteremia 1 - +staph epi, strep mitis - sensitive to vanco, tetracycline 2 - G+ cocci clusters 3/4 - NTD Discussed with micro, although sensitivities displayed do not show data for staph epi, it is sensitive to ceftriaxone. Vanco discontinued. Continue ceftriaxone. (5) HTN (hypertension) Status: Chronic Problem Specific Plan: Monitor Clinically Problem Text: norvasc, coreg, hydralazine with hold parameters. hydralazine dose adjusted (6) Hypercholesteremia Status: Chronic Problem Text: lipitor (7) Diabetes Status: Chronic Problem Specific Plan: Repeat Labs Problem Text: hyperglycemia, insulin adjusted basal insulin, and bolus insulin f/u fs (8) Depression Status: Chronic Problem Specific Plan: Monitor Clinically Problem Text: continue cymbalta (9) CAD (coronary artery disease) Status: Chronic Problem Text: coreg, plavix, lipitor, asa (10) TIA (transient ischemic attack) Status: Chronic Problem Text: continue asa, plavix (11) Physical deconditioning Status: Acute Problem Text: pt, nutrition consult improving (12) Constipation Status: Acute Problem Text: bowel meds Plan/VTE VTE Prophylaxis Ordered?: Yes (heparin SQ) Plan IVF: Discontinue Diet: Continue Current Activity: Continue Current Therapy: PT Medications: Start Antibiotics Diagnostics: Repeat Labs in AM, Obtain Cultures Disposition pt VS, I&O, 24H, Fishbone Vital Signs/I&O Vital Signs Date Time Temp Pulse Resp B/P Pulse Ox O2 Delivery O2 Flow Rate FiO2 12/02/16 18:58 Room Air 12/02/16 15:46 152/68 12/02/16 14:00 96.0 71 18 98 11/26/16 16:00 2.0 I&O- Last 24 Hours up to 6 AM 12/02/16 06:00 Intake Total 1490 ml Output Total 1100 ml Balance 390 ml Laboratory Data 24H LABS Laboratory Tests 2 12/01/16 20:15: Bedside Glucose (Misc Panel) 391H 12/02/16 06:49: Anion Gap 7L, C-Reactive Protein, Quantitative 0.82H, Blood Urea Nitrogen 54H, Creatinine 2.94H, Sodium Level 140, Potassium Level 3.8, Chloride Level 102, Carbon Dioxide Level 31, Calcium Level 9.2, Glomerular Filtration Rate 16.4L, Magnesium Level 2.0 12/02/16 11:28: Bedside Glucose (Misc Panel) 349H 12/02/16 16:40: Bedside Glucose (Misc Panel) 279H CBC/BMP Laboratory Tests 12/02/16 06:49 Calcium Level 9.2 12/02/16 06:50 Red Blood Count 3.35 L, Mean Corpuscular Volume 95.3, Mean Corpuscular Hemoglobin 31.8, Mean Corpuscular Hemoglobin Concent 33.4, Red Cell Distribution Width 14.0 Microbiology Microbiology 11/25/16 Blood Culture - Final, Complete NO GROWTH AFTER 5 DAYS 2/22/17 Blood Culture - Final, Complete NO GROWTH AFTER 5 DAYS 11/24/16 Blood Culture - Final, Complete Staphylococcus Epidermidis 11/24/16 Blood Culture - Final, Complete Staphylococcus Epidermidis Streptococcus Mitis 11/24/16 Urine Culture - Final, Complete Proteus Mirabilis Strep Agalactiae Group B VINI HILL MD Dec 02, 2016 19:34
[2016-12-02 22:00] VITALS: BP 132/60
[2016-12-02] MEDS: ATORVASTATIN 10 MG TAB PO SCH (22:44)
[2016-12-02] MEDS: LEVEMIR (INSULIN DETEMIR) 1 UNITS/0.01ML SC SCH (22:46)
[2016-12-03 06:00] VITALS: BP 135/73
[2016-12-03 08:23] LABS: MEAN CORPUSCULAR HEMOGLOBIN 31.4 pg (27.0-33.0); MEAN CORPUSCULAR HGB CONC 33.3 g/dl (32.0-36.5); MEAN CORPUSCULAR VOLUME 94.3 fl (80.0-96.0); RED CELL DISTRIBUTION WIDTH 14.1 % (11.5-14.5); WHITE BLOOD COUNT 8.1 K/mm3 (4.0-10.0)
[2016-12-03 08:36] LABS: CALCIUM LEVEL 9.5 MG/DL (8.8-10.2); CREATININE FOR GFR 2.82 MG/DL (0.55-1.02); GLOMERULAR FILTRATION RATE 17.3 (>39); MAGNESIUM LEVEL 2.1 MG/DL (1.8-2.4)
[2016-12-03] MEDS: HEPARIN SOD (PORCINE) 5000 UNITS/ML VIAL SQ SCH ×2 (09:00→21:16)
[2016-12-03] MEDS: CALCITRIOL 0.25 MCG CAP (S0169) PO SCH (09:01)
[2016-12-03] MEDS: DULoxetine 30 MG CAP (CYMBALTA) PO SCH (09:01)
[2016-12-03] MEDS: ASPIRIN 81 MG ENTERIC TAB PO SCH (09:01)
[2016-12-03] MEDS: FAMOTIDINE 20 MG TAB PO SCH ×2 (09:01→21:16)
[2016-12-03] MEDS: HumaLOG INSULIN (NovoLOG) PER UNIT SC SCH ×4 (09:01→21:19)
[2016-12-03] MEDS: CLOPIDOGREL 75 MG TAB PO SCH (09:02)
[2016-12-03] MEDS: SENOKOT S TAB PO SCH ×2 (09:02→21:17)
[2016-12-03] MEDS: CARVedilol 6.25 MG TAB PO SCH ×2 (09:03→21:17)
[2016-12-03] MEDS: amLODIPine 10 MG TAB PO SCH (09:03)
[2016-12-03] MEDS: VITAMIN D 1,000 INTERNATIONAL UNITS TABLET PO SCH (09:04)
[2016-12-03] MEDS: MIRALAX *UNIT DOSE* 17GM PACKET PO SCH ×2 (09:04→21:16)
[2016-12-03] MEDS: **hydrALAZINE HCL** 25 MG TAB PO SCH ×3 (09:05→21:19)
[2016-12-03] MEDS: GABAPENTIN 100 MG CAP PO SCH ×2 (09:05→21:16)
--- NOTE | 2016-12-03 11:51 | IPN ---
DATE: 12/03/2016 Mrs. Loco is seen this morning on her bedside. She is sitting in the chair at the time of my visit. She remains weak and reports that her knees gave in when she tries to walk. She denies any nausea, vomiting, dyspnea or chest pain. She has no fever or chills. PHYSICAL EXAMINATION: Temperature 97.1 degrees Fahrenheit, heart rate 68 per minute and respiratory rate 14 per minute. Blood pressure 132/60 mmHg and oxygen saturation 98% on room air. Head is atraumatic. Ears, nose and throat are unremarkable. Pupils are equal and reactive to light and sclera is anicteric. Neck is supple and without jugular venous distention (JVD) or thyroid enlargement. Heart sounds regular and lungs clear to auscultation. Abdomen is soft and nontender and without a palpable organomegaly. Bowel sounds are normal. Extremities have no cyanosis or clubbing. Skin has no rash or ulcers. Neurologically, she is awake, alert and oriented times three. Today's labs show WBC count 8.1, hemoglobin 11.2 and hematocrit 33.7. Sodium 141 and potassium 4.0. BUN 51 and creatinine 2.82. Glucose 196 and calcium 9.5. PROBLEMS: 1. Acute kidney injury superimposed on chronic kidney disease. Kidney function has improved to almost baseline. She has mild fluctuations in her BUN and creatinine. At this point, she has been off diuretics due to acute kidney injury and we will continue to monitor. 2. Hypertension. Blood pressure is well-controlled on current antihypertensive medications and no changes are indicated. 3. History of congestive heart failure. So far volume status is well-compensated and I will keep her off diuresis. 4. Bacteremia. The patient has been on ceftriaxone 1 gram every 24 hours. I suggest to consider stopping her ceftriaxone within the next day or two. 5. Hyperparathyroidism. The patient should continue with calcitriol 0.25 mcg daily. Intact PTH level will be checked tomorrow morning. 6. Generalized weakness. The patient continues with physical therapy.
[2016-12-03] MEDS: cefTRIAXone SOD 1 GM in D5W MINI-BAG PLUS 50 ML IV SCH (12:00)
[2016-12-03 14:00] VITALS: BP 126/60
--- NOTE | 2016-12-03 21:16 | IPNPDOC ---
Subjective Date Seen The patient was seen on 12/03/16. Subjective Chief Complaint/HPI The patient is a 76-year-old female admitted with a reason for visit of Altered Mental State. Events since last encounter No acute events overnight, PT/OT reported twitching movement causing instability , as per patient is chronic for years. Denied CP/SOB/ABD pain/n/v. reporting itching resolved Objective Physical Examination General Exam: Positive: Alert, Cooperative, No Acute Distress Eye Exam: Positive: Conjunctiva & lids normal, EOMI, PERRLA, Negative: Sclera icteric ENT Exam: Positive: Atraumatic, Mucous membr. moist/pink Neck Exam: Positive: Supple Chest Exam: Positive: Clear to auscultation, Normal air movement Heart Exam: Positive: Rate Normal, Regular Rhythm Abdomen Exam: Positive: Normal bowel sounds, Soft, Negative: Tenderness Extremity Exam: Negative: Edema Skin Exam: Positive: Breakdown (upper back from previous injury, healing) Psych Exam: Positive: Oriented x 3 Assessment /Plan Problems (1) Altered mental status Status: Resolved Response to Treatment: Progressing Discussed With: Patient Problem Specific Plan: Monitor Clinically, Repeat Labs Problem Text: Resolved. (2) CKD (chronic kidney disease) Status: Chronic Response to Treatment: Improving Problem Specific Plan: Consult Specialist, Repeat Labs Problem Text: acute on chronic, baseline is CKD V, not on dialysis. Does have right AV fistula if needed. Fluid discontinued, renal function improving, nephrology consultation appreciated. diuretics on hold (lasix, metolazone), restart as per nephrology (3) UTI (urinary tract infection) Status: Acute Response to Treatment: Improving Discussed With: Patient Problem Specific Plan: Monitor Clinically, Repeat Labs Problem Text: Cultures positive for proteus and strep Group B Continue ceftriaxone - day #8 (4) Positive blood culture Status: Acute Response to Treatment: Progressing Problem Specific Plan: Monitor Clinically, Repeat Labs Problem Text: Bacteremia 1 - +staph epi, strep mitis - sensitive to vanco, tetracycline 2 - G+ cocci clusters 3/4 - NTD Discussed with micro, although sensitivities displayed do not show data for staph epi, it is sensitive to ceftriaxone. Vanco discontinued. Continue ceftriaxone. (5) HTN (hypertension) Status: Chronic Problem Specific Plan: Monitor Clinically Problem Text: norvasc, coreg, hydralazine with hold parameters. hydralazine dose adjusted (6) Hypercholesteremia Status: Chronic Problem Text: lipitor (7) Diabetes Status: Chronic Problem Specific Plan: Repeat Labs Problem Text: hyperglycemia, insulin adjusted basal insulin, and bolus insulin f/u fs (8) Depression Status: Chronic Problem Specific Plan: Monitor Clinically Problem Text: continue cymbalta (9) CAD (coronary artery disease) Status: Chronic Problem Text: coreg, plavix, lipitor, asa (10) TIA (transient ischemic attack) Status: Chronic Problem Text: continue asa, plavix (11) Physical deconditioning Status: Acute Problem Text: pt, nutrition consult improving (12) Constipation Status: Acute Problem Text: bowel meds Plan/VTE VTE Prophylaxis Ordered?: Yes (heparin SQ) Plan IVF: Discontinue Diet: Continue Current Activity: Continue Current Therapy: PT Medications: Start Antibiotics Diagnostics: Repeat Labs in AM, Obtain Cultures Disposition Pending PT VS, I&O, 24H, Fishbone Vital Signs/I&O Vital Signs Date Time Temp Pulse Resp B/P Pulse Ox O2 Delivery O2 Flow Rate FiO2 12/03/16 16:39 130/72 12/03/16 14:00 99.0 66 18 95 Room Air I&O- Last 24 Hours up to 6 AM 12/03/16 06:00 Intake Total 540 ml Output Total 300 ml Balance 240 ml Laboratory Data 24H LABS Laboratory Tests 2 12/03/16 07:56: Anion Gap 9, Blood Urea Nitrogen 51H, Creatinine 2.82H, Sodium Level 141, Potassium Level 4.0, Chloride Level 103, Carbon Dioxide Level 29, Calcium Level 9.5, Glomerular Filtration Rate 17.3L, Magnesium Level 2.1 12/03/16 11:34: Bedside Glucose (Misc Panel) 398H 12/03/16 16:41: Bedside Glucose (Misc Panel) 294H 12/03/16 20:31: Bedside Glucose (Misc Panel) 344H CBC/BMP Laboratory Tests 12/03/16 07:56 Calcium Level 9.5, Red Blood Count 3.57 L, Mean Corpuscular Volume 94.3, Mean Corpuscular Hemoglobin 31.4, Mean Corpuscular Hemoglobin Concent 33.3, Red Cell Distribution Width 14.1 Microbiology Microbiology 11/25/16 Blood Culture - Final, Complete NO GROWTH AFTER 5 DAYS 11/25/16 Blood Culture - Final, Complete NO GROWTH AFTER 5 DAYS 11/24/16 Blood Culture - Final, Complete Staphylococcus Epidermidis 11/24/16 Blood Culture - Final, Complete Staphylococcus Epidermidis Streptococcus Mitis 11/24/16 Urine Culture - Final, Complete Proteus Mirabilis Strep Agalactiae Group B VINI HILL MD Dec 03, 2016 21:16
[2016-12-03] MEDS: ATORVASTATIN 10 MG TAB PO SCH (21:17)
[2016-12-03] MEDS: LEVEMIR (INSULIN DETEMIR) 1 UNITS/0.01ML SC SCH (21:19)
[2016-12-03 22:00] VITALS: BP 132/61
[2016-12-04] MEDS: diphenhydrAMINE INJ 50MG/ML VIAL (J1200) IV PRN (00:01)
[2016-12-04 06:00] VITALS: BP 159/70
[2016-12-04 06:52] LABS: MEAN CORPUSCULAR HGB CONC 31.2 g/dl (32.0-36.5); MEAN CORPUSCULAR VOLUME 96.2 fl (80.0-96.0); RED CELL DISTRIBUTION WIDTH 13.8 % (11.5-14.5); WHITE BLOOD COUNT 9.4 K/mm3 (4.0-10.0)
[2016-12-04 07:02] LABS: CREATININE FOR GFR 2.81 MG/DL (0.55-1.02); GLOMERULAR FILTRATION RATE 17.3 (>39); MAGNESIUM LEVEL 2.1 MG/DL (1.8-2.4); POTASSIUM SERUM 3.7 MEQ/L (3.5-5.1)
[2016-12-04] MEDS: HEPARIN SOD (PORCINE) 5000 UNITS/ML VIAL SQ SCH (07:44)
[2016-12-04] MEDS: HumaLOG INSULIN (NovoLOG) PER UNIT SC SCH ×2 (07:45→11:53)
[2016-12-04] MEDS: DULoxetine 30 MG CAP (CYMBALTA) PO SCH (07:46)
[2016-12-04] MEDS: CARVedilol 6.25 MG TAB PO SCH (07:46)
[2016-12-04] MEDS: CLOPIDOGREL 75 MG TAB PO SCH (07:46)
[2016-12-04] MEDS: FAMOTIDINE 20 MG TAB PO SCH (07:46)
[2016-12-04] MEDS: CALCITRIOL 0.25 MCG CAP (S0169) PO SCH (07:46)
[2016-12-04] MEDS: amLODIPine 10 MG TAB PO SCH (07:46)
[2016-12-04] MEDS: ASPIRIN 81 MG ENTERIC TAB PO SCH (07:47)
[2016-12-04] MEDS: SENOKOT S TAB PO SCH (07:47)
[2016-12-04] MEDS: VITAMIN D 1,000 INTERNATIONAL UNITS TABLET PO SCH (07:47)
[2016-12-04 07:48] VITALS: BP 159/70
[2016-12-04] MEDS: MIRALAX *UNIT DOSE* 17GM PACKET PO SCH (07:48)
[2016-12-04] MEDS: GABAPENTIN 100 MG CAP PO SCH (07:48)
[2016-12-04] MEDS: **hydrALAZINE HCL** 25 MG TAB PO SCH (07:48)
[2016-12-04] MEDS: cefTRIAXone SOD 1 GM in D5W MINI-BAG PLUS 50 ML IV SCH (11:52)
[2016-12-04 14:00] VITALS: BP 143/67
--- NOTE | 2016-12-04 20:38 | IPN ---
DATE: 12/04/2016 Mrs. Loco is seen this morning on her bedside. She is feeling better and is currently brushing her hair. She is afebrile and denies any dyspnea, chest pain, nausea or vomiting. She was initially admitted with encephalopathy and was noticed to have a urinary tract infection (UTI) and bacteremia. She has been treated with IV antibiotics. She also had acute renal failure on admission, which has improved to about baseline. She has been off diuretics. PHYSICAL EXAMINATION Temperature is 98.4 degrees Fahrenheit, heart rate 68 per minute and respiratory rate 14 per minute. Blood pressure 159/70 mmHg and oxygen saturation 95% on room air. Head is atraumatic. Ears, nose and throat are unremarkable. Neck is supple and without jugular venous distention (JVD) or thyroid enlargement. Heart sounds are regular and lungs clear to auscultation bilaterally. Abdomen is soft and nontender and without a palpable organomegaly. Extremities without any cyanosis or clubbing. Today's laboratories show WBC count 9.4, hemoglobin 10.0 and hematocrit 32.2. Sodium 140 and potassium 3.7. BUN 50 and creatinine 2.81. An intact PTH level is an 96.0. PROBLEMS: 1. Acute renal failure superimposed on chronic kidney disease. No change in kidney function noticed over the last couple of days. She has no uremic symptoms and there is no emergent indication for starting dialysis. She does have AV fistula in her arm, which is ready for use; however, the patient is stable at this point and will be followed up as an outpatient. 2. Hypertension. Blood pressure control has been reasonable. I would recommend to continue with current antihypertensive medications. We will probably add a diuretic at a lower dose as an outpatient. 3. Bacteremia. The patient has been treated with ceftriaxone, and I feel that she has received enough antibiotic. I would recommend to stop her antibiotics now and let her go home without any further antibiotic. 4. Congestive heart failure. The patient is very well compensated. She has been off diuretics since admission. My recommendation is to keep her off diuretics until she is seen in the office next week. 5. Hyperparathyroidism. Intact PTH level is appropriate, and she will continue with calcitriol as she was taking prior to admission. DISPOSITION: The patient can be discharged to home today and follow up in the office in 1 week. Her medications will be reviewed and adjusted at that time.
--- NOTE | 2016-12-06 10:44 | DSES ---
DATE OF ADMISSION: 11/24/2016 DATE OF DISCHARGE: 12/04/2016 PRIMARY CARE PROVIDER/BEVELING MACHINE OPERATOR: Duane Kelley MD FINAL DIAGNOSES: 1. Encephalopathy. 2. Altered mental status secondary to urinary tract infection (UTI). 3. Positive blood cultures with bacteremia. 4. Chronic kidney disease (CKD) stage IV. 5. Hypertension. 6. Dyslipidemia. 7. Type 2 diabetes. 8. Depression. 9. Coronary artery disease. 10. History of transient ischemic attack (TIA). 11. Severe physical deconditioning. 12. Constipation. HISTORY OF PRESENT ILLNESS: This is a 76-year-old female patient with history of chronic CKD stage IV-V with a right arteriovenous (AV) fistula, not on hemodialysis, hypertension, dyslipidemia, diabetes, depression, coronary artery disease, myocardial infarction ([place]), TIA, tonsillectomy, appendectomy, adenoidectomy, right AV arm fistula, coronary artery bypass graft (CABG), presented to the emergency room, was sent in by Dr. Kelley, due to increasing lethargy, abdominal pain, dysuria, urgency and frequency, left lower quadrant abdominal pain, and complaints of myalgia for the past 9 days. The patient's neighbor had similar symptoms and was given aspirin by primary care provider. Patient states that her abdominal pain is in the left lower quadrant radiating across the back. She has been having dysuria, urgency, and frequency for the past 3 days, no fever or chills. Patient believes that she caught some virus in town and does report diarrhea a week prior to admission on and off 3-4 times a day and stomach pain, decrease in appetite, no decrease in oral. Patient was found to have lactic acid of 2.1. At her baseline CKD is stage IV-V. No white count. Slightly hypokalemic. Urinalysis is negative for leukocyte esterase, positive for nitrites, 7 WBCs and 1+ bacteria. CT and chest xray shows chronic appearing changes, no acute pulmonary or cardiopulmonary process. Patient's diarrhea subsided. CT scan of the head shows no acute intracranial pathology, infarct, or mass. Hospitalist service was consulted for admission. HOSPITAL COURSE: Patient was admitted to [facility]. Cultures were sent, urinalysis and urine culture were sent, blood culture was sent. Blood culture positive for Staphylococcus Epidermidis and also Streptococcus mitis. Urine culture positive for proteus and Streptococcus agalactiae, group B Streptococcus. Patient was treated with intravenous (IV) antibiotics. After culture returned, antibiotic was narrowed. Completed a full course of treatment. Diuretic was on hold. Kidney function was monitored. Patient's mental status progressively improved. C-reactive protein also improved. Blood pressure medication was adjusted by street light inspector. Nephrology, Dr. Kelley, was consulted, appreciate his assistance. Physical therapy was done. Insulin was given to the patient as well. Patient's home medication of aspirin and Plavix was continued as well as statin. Nutrition was consulted for deconditioning and poor oral intake. Bowel regimen has also been given for constipation. Patient tolerated treatment, returning to baseline. Discharge was delayed for severe deconditioning requiring extensive physical therapy. Patient currently passed physical therapy, tolerating oral, able to be discharged for further care as outpatient. Diuretics will be on hold after discussion with Dr. Kelley and Dr. Kelley will followup with the patient in 7 days for further adjustment of patient's diuretics. VITAL SIGNS: Temperature 96.9, pulse 65, respirations 16, blood pressure 143/67, pulse oximetry 96% on room air. LABORATORY DATA: WBC 9.4, hemoglobin and hematocrit 10/32.2, platelets 235. Chemistry: Sodium 142, potassium 3.7, chloride 105, bicarbonate 30, BUN 50, creatinine 2.8, C-reactive protein 0.8. DISCHARGE MEDICATIONS: Patient's home medications: - Ventolin inhaler four times a day as needed - Norvasc 10 mg by mouth daily - aspirin 81 mg by mouth daily - atorvastatin 10 mg by mouth nightly - calcitriol 0.25 mcg by mouth daily - Coreg 6.25 mg by mouth twice a day - vitamin D 2000 units by mouth daily - clonazepam 0.5 mg by mouth twice a day as needed - Plavix 75 mg by mouth daily - Cymbalta 30 mg by mouth daily - Pepcid 20 mg by mouth twice a day - gabapentin 100 mg by mouth twice a day - hydralazine 25 mg by mouth twice a day - NovoLog insulin via scale before food and nightly - Lantus 60 units subcutaneous daily, adjusted as per primary provider - magnesium oxide 400 mg by mouth daily - MiraLax 17 grams by mouth daily as needed DISCHARGE INSTRUCTIONS: Patient is instructed to followup with street light inspector and primary care provider in 7 days. Daily weight. Return to the hospital if symptoms worsen. Continue physical therapy. Home health service referral made.
== END 2016-12-04 15:15 | disposition home health service (06) | DRG 689 ==
LOC: M ED 16:43 → M ED INP 20:26 → M ALC 11-25 13:50 → M PCU 11-27 15:11 → M MS5PR 11-29 11:42
PROVIDERS: ADMIT General Practice; ATTEND Internal Medicine
DX: N39.0 Urinary tract infection, site not specified (principal); G93.41 Metabolic encephalopathy; N18.5 Chronic kidney disease, stage 5; R78.81 Bacteremia; I13.11 Hypertensive heart and chronic kidney disease without heart failure, with stage 5 chronic kidney disease, or end stage renal disease; E87.1 Hypo-osmolality and hyponatremia; E87.3 Alkalosis; B95.1 Streptococcus, group B, as the cause of diseases classified elsewhere; B95.4 Other streptococcus as the cause of diseases classified elsewhere; F32.9 Major depressive disorder, single episode, unspecified; D63.1 Anemia in chronic kidney disease; R53.1 Weakness; E87.6 Hypokalemia; K59.00 Constipation, unspecified; E21.3 Hyperparathyroidism, unspecified; E78.00 Pure hypercholesterolemia, unspecified; E78.5 Hyperlipidemia, unspecified; E11.9 Type 2 diabetes mellitus without complications; I25.10 Atherosclerotic heart disease of native coronary artery without angina pectoris; B95.7 Other staphylococcus as the cause of diseases classified elsewhere; B96.4 Proteus (mirabilis) (morganii) as the cause of diseases classified elsewhere; Z79.82 Long term (current) use of aspirin; Z79.4 Long term (current) use of insulin; Z87.891 Personal history of nicotine dependence; Z86.73 Personal history of transient ischemic attack (TIA), and cerebral infarction without residual deficits; I25.2 Old myocardial infarction; Z95.1 Presence of aortocoronary bypass graft; Z79.02 Long term (current) use of antithrombotics/antiplatelets; Z88.0 Allergy status to penicillin; Z88.5 Allergy status to narcotic agent

== ENCOUNTER → 2017-10-01 | Outpatient (REF) | payer OTHER, MEDICAID ==
[2017-10-04 11:08] LABS: HEPATITIS B SURFACE ANTIBODY NEGATIVE (POSITIVE)
== END ==
LOC: M LAB REF 16:47
DX: N18.6 End stage renal disease (principal)
CPT/HCPCS: 86706

== ENCOUNTER 2018-02-09 07:01 | Day surgery (SDC) | payer OTHER ==
[~2018-02-09 07:01] MED LIST: ACETAMINOPHEN 325 MG TAB PO; PHENYLEPHRINE HCL 10 % OPHTH. SOL 5ML OD; PROPARACAINE 0.5% OPHTH SOL 15ML OD
[2018-02-09] MEDS: LIDOCAINE 3.5 % 1ML OPHTH TOPICAL GEL OU (07:20)
[2018-02-09] MEDS: CYCLOPENTOLATE 2% OPHTH SOLN 2ML BTL OD (07:25)
[2018-02-09] MEDS: PHENYLEPHRINE 2.5% OPHTH SOL 2ML OD (07:30)
[2018-02-09] MEDS: OFLOXACIN 0.3 % (OCUFLOX) OPTH SOL 5ML OD (07:35)
[2018-02-09] MEDS: TROPICAMIDE 1% OPHTH SOLN 2ML OD (07:35)
[2018-02-09 07:50] LABS: BEDSIDE GLUCOSE 156 MG/DL (83-110)
[2018-02-09] MEDS ORDERED: fentaNYL 100 MCG/2 ML INJECTION (J3010) As Ordered (08:00)
[2018-02-09] MEDS ORDERED: MIDAZOLAM INJ 2 MG/2 ML VIAL (J2250) As Ordered (08:00)
[2018-02-09 08:08] LABS: POTASSIUM SERUM 4.2 MEQ/L (3.5-5.1)
[2018-02-09] MEDS: POVIDONE-IODINE 5% OPHTH PREP SOL 30ML As Ordered (08:09)
[2018-02-09] MEDS: BALANCED SALT IRRIGATION SOLUTION 500ML BAG (FOR OR EYE MACHINE) As Ordered (08:14)
[2018-02-09] MEDS: LIDOCAINE 1% SDV 5 ML VIAL As Ordered (08:14)
[2018-02-09] MEDS: CEFUROXIME 1MG/0.1ML INTRACAMERAL INJ As Ordered (08:14)
[2018-02-09] MEDS: HEALON DUET (HEALON 10MG/ML 0.55ML & HEALON ENDOCOAT 30MG/ML 0.85ML) As Ordered (08:14)
[2018-02-09] MEDS ORDERED: TRIMETHOBENZAMIDE 300 MG CAP PO (09:00)
[2018-02-09] MEDS: KETOROLAC 0.5% OPHTH SOLN OD (09:00)
== END 2018-02-09 09:33 | disposition home or self-care (01) ==
LOC: M SDC 07:01
DX: H25.11 Age-related nuclear cataract, right eye (principal); I25.10 Atherosclerotic heart disease of native coronary artery without angina pectoris; I10 Essential (primary) hypertension; E78.5 Hyperlipidemia, unspecified; E11.21 Type 2 diabetes mellitus with diabetic nephropathy; K21.9 Gastro-esophageal reflux disease without esophagitis; F41.9 Anxiety disorder, unspecified; F32.9 Major depressive disorder, single episode, unspecified; N18.9 Chronic kidney disease, unspecified; Z79.51 Long term (current) use of inhaled steroids; Z86.73 Personal history of transient ischemic attack (TIA), and cerebral infarction without residual deficits; Z87.891 Personal history of nicotine dependence; Z88.2 Allergy status to sulfonamides; Z88.8 Allergy status to other drugs, medicaments and biological substances; Z79.82 Long term (current) use of aspirin; Z79.02 Long term (current) use of antithrombotics/antiplatelets; Z79.4 Long term (current) use of insulin; Z79.899 Other long term (current) drug therapy
CPT/HCPCS: 66984

== ENCOUNTER 2018-03-09 07:59 | Day surgery (SDC) | payer OTHER ==
[2018-03-09] MEDS: CEFUROXIME 1MG/0.1ML INTRACAMERAL INJ As Ordered (07:00)
[~2018-03-09 07:59] MED LIST changes: -PHENYLEPHRINE HCL 10 % OPHTH. SOL 5ML OD; +PHENYLEPHRINE HCL 10 % OPHTH. SOL 5ML OS; -PROPARACAINE 0.5% OPHTH SOL 15ML OD; +PROPARACAINE 0.5% OPHTH SOL 15ML OS
[2018-03-09 08:44] LABS: POTASSIUM SERUM 4.8 MEQ/L (3.5-5.1)
[2018-03-09] MEDS: CYCLOPENTOLATE 2% OPHTH SOLN 2ML BTL OS (09:11)
[2018-03-09] MEDS: TROPICAMIDE 1% OPHTH SOLN 2ML OS (09:11)
[2018-03-09] MEDS: LIDOCAINE 3.5 % 1ML OPHTH TOPICAL GEL OU (09:11)
[2018-03-09] MEDS: PHENYLEPHRINE 2.5% OPHTH SOL 2ML OS (09:11)
[2018-03-09] MEDS: OFLOXACIN 0.3 % (OCUFLOX) OPTH SOL 5ML OS (09:11)
[2018-03-09 09:17] LABS: BEDSIDE GLUCOSE 249 MG/DL (83-110)
[2018-03-09] MEDS ORDERED: CARVedilol 6.25 MG TAB As Ordered (09:22)
[2018-03-09] MEDS: CARVedilol 6.25 MG TAB PO (09:24)
[2018-03-09] MEDS ORDERED: fentaNYL 100 MCG/2 ML INJECTION (J3010) As Ordered (10:03)
[2018-03-09] MEDS ORDERED: MIDAZOLAM INJ 2 MG/2 ML VIAL (J2250) As Ordered (10:03)
[2018-03-09] MEDS: POVIDONE-IODINE 5% OPHTH PREP SOL 30ML As Ordered (10:04)
[2018-03-09] MEDS: HEALON DUET (HEALON 10MG/ML 0.55ML & HEALON ENDOCOAT 30MG/ML 0.85ML) As Ordered (10:04)
[2018-03-09] MEDS: LIDOCAINE 1% SDV 5 ML VIAL As Ordered (10:04)
[2018-03-09] MEDS: BALANCED SALT IRRIGATION SOLUTION 500ML BAG (FOR OR EYE MACHINE) As Ordered (10:04)
[2018-03-09] MEDS ORDERED: TRIMETHOBENZAMIDE 300 MG CAP PO (10:30)
[2018-03-09] MEDS ORDERED: KETOROLAC 0.5% OPHTH SOLN OS (10:30)
== END 2018-03-09 11:40 | disposition home or self-care (01) ==
LOC: M SDC 07:59
DX: H25.12 Age-related nuclear cataract, left eye (principal); I25.10 Atherosclerotic heart disease of native coronary artery without angina pectoris; E11.9 Type 2 diabetes mellitus without complications; I25.2 Old myocardial infarction; E03.9 Hypothyroidism, unspecified; F41.9 Anxiety disorder, unspecified; F32.9 Major depressive disorder, single episode, unspecified; Z87.891 Personal history of nicotine dependence; Z88.2 Allergy status to sulfonamides; Z79.4 Long term (current) use of insulin; Z79.82 Long term (current) use of aspirin; Z79.02 Long term (current) use of antithrombotics/antiplatelets
CPT/HCPCS: 66984

== ENCOUNTER 2018-04-06 11:56 | Emergency (ER) | payer OTHER, MEDICAID, MEDICARE | END 2018-04-06 14:15 | disposition home or self-care (01) | LOC: M ED 11:56 | DX: T81.4XXA Infection following a procedure, initial encounter (principal); L03.312 Cellulitis of back [any part except buttock and flank]; H95.89 Other postprocedural complications and disorders of the ear and mastoid process, not elsewhere classified; Y83.8 Other surgical procedures as the cause of abnormal reaction of the patient, or of later complication, without mention of misadventure at the time of the procedure; I12.9 Hypertensive chronic kidney disease with stage 1 through stage 4 chronic kidney disease, or unspecified chronic kidney disease; N18.6 End stage renal disease; R11.2 Nausea with vomiting, unspecified; E11.9 Type 2 diabetes mellitus without complications; I25.10 Atherosclerotic heart disease of native coronary artery without angina pectoris; I25.2 Old myocardial infarction; E78.5 Hyperlipidemia, unspecified; Z99.2 Dependence on renal dialysis; Z87.891 Personal history of nicotine dependence; Z88.2 Allergy status to sulfonamides; Z88.1 Allergy status to other antibiotic agents; Z88.8 Allergy status to other drugs, medicaments and biological substances; Z88.5 Allergy status to narcotic agent; Z79.899 Other long term (current) drug therapy; Z79.02 Long term (current) use of antithrombotics/antiplatelets; Z79.82 Long term (current) use of aspirin; Z79.4 Long term (current) use of insulin; Z85.828 Personal history of other malignant neoplasm of skin ==

== ENCOUNTER 2018-04-08 16:16 | Inpatient (IN) | payer OTHER ==
[2018-04-08 18:29] LABS: BASO % 0.3 % (0.0-1.0); EOS # 0.2 10^3/uL (0.0-0.50); EOS % 1.7 % (0.0-3.0); HEMATOCRIT 33.2 % (36.0-47.0); HEMOGLOBIN 10.8 g/dl (12.0-15.5); IMMATURE GRANULOCYTE % 0.3 % (0-3.0); LYMPH # 2.2 10^3/uL (1.5-4.5); LYMPH % 23.4 % (24.0-44.0); MEAN CORPUSCULAR HEMOGLOBIN 32.8 pg (27.0-33.0); MEAN CORPUSCULAR HGB CONC 32.5 g/dl (32.0-36.5); MEAN CORPUSCULAR VOLUME 100.9 fl (80.0-96.0); MONO # 1.4 10^3/uL (0.0-0.8); MONO % 14.6 % (0.0-5.0); NEUTROPHILS # 5.7 10^3/uL (1.8-7.7); NEUTROPHILS % 59.7 % (36.0-66.0); PLATELET COUNT, AUTOMATED 272 10^3/uL (150-450); RED BLOOD COUNT 3.29 10^6/uL (4.00-5.40); RED CELL DISTRIBUTION WIDTH 12.7 % (11.5-14.5); WHITE BLOOD COUNT 9.6 10^3/uL (4.0-10.0)
[2018-04-08 18:54] LABS: ALBUMIN 2.8 GM/DL (3.2-5.2); ALKALINE PHOSPHATASE 76 U/L (45-117); ALT/SGPT 22 U/L (12-78); ANION GAP 5 MEQ/L (8-16); AST/SGOT 28 U/L (7-37); BILIRUBIN,DIRECT < 0.1 MG/DL (0.0-0.2); BILIRUBIN,TOTAL 0.3 MG/DL (0.2-1.0); BLOOD UREA NITROGEN 20 MG/DL (7-18); CALCIUM LEVEL 8.7 MG/DL (8.8-10.2); CARBON DIOXIDE LEVEL 31 MEQ/L (21-32); CHLORIDE LEVEL 104 MEQ/L (98-107); GLOMERULAR FILTRATION RATE 19.7 (>32); GLUCOSE, FASTING 211 MG/DL (70-100); POTASSIUM SERUM 4.9 MEQ/L (3.5-5.1); SODIUM LEVEL 140 MEQ/L (136-145); TOTAL PROTEIN 6.8 GM/DL (6.4-8.2)
[2018-04-08] MEDS: ACETAMINOPHEN TAB 650MG DOSE (2X325MG) PO (20:12)
[2018-04-08] MEDS: VANCOMYCIN HCL 1,000 MG, VIAL MATE ADAPTER 1 EACH in D5W 250 ML IV (22:07)
[2018-04-08] MEDS ORDERED: GLUCAGON FOR INJ 1 MG VIAL (J1610) SC (23:45)
[2018-04-08] MEDS ORDERED: DEXTROSE 50% 50 ML SYRINGE IV (23:45)
[2018-04-08] MEDS ORDERED: GLUCOSE 4 GM CHEW TABLET PO (23:45)
[2018-04-08] MEDS ORDERED: ONDANSETRON 4 MG TAB (S0181) PO (23:45)
[2018-04-09] MEDS: HumaLOG INSULIN (NovoLOG) PER UNIT SC ×5 (00:51→21:35)
[2018-04-09 00:57] LABS: BEDSIDE GLUCOSE 183 MG/DL (83-110)
[2018-04-09] MEDS: DULoxetine 30 MG CAP (CYMBALTA) PO ×2 (01:33→21:34)
[2018-04-09] MEDS: FUROSEMIDE 40 MG TAB PO ×3 (01:33→21:34)
[2018-04-09] MEDS: FAMOTIDINE 20 MG TAB PO ×3 (01:33→21:34)
[2018-04-09] MEDS: GABAPENTIN 100 MG CAP PO ×4 (01:33→21:34)
[2018-04-09] MEDS: LEVEMIR (INSULIN DETEMIR) 1 UNITS/0.01ML SC ×2 (01:34→21:35)
[2018-04-09] MEDS: KETOROLAC 0.5% OPHTH SOLN OS ×5 (02:27→21:35)
[2018-04-09] MEDS: prednisoLONE ACET 1% OPHTH SUSP 5ML OS ×5 (02:27→21:35)
[2018-04-09] MEDS: MORPHINE 4 MG/ML 1ML VIAL/SYRINGE (J2270) IV (02:28)
[2018-04-09] MEDS: HEPARIN SOD (PORCINE) 5000 UNITS/ML VIAL SC ×3 (05:04→21:35)
[2018-04-09] MEDS: ACETAMINOPHEN 500 MG TAB PO ×3 (05:04→21:54)
[2018-04-09 06:03] LABS: HEMATOCRIT 31.3 % (36.0-47.0); HEMOGLOBIN 10.4 g/dl (12.0-15.5); MEAN CORPUSCULAR HEMOGLOBIN 33.1 pg (27.0-33.0); MEAN CORPUSCULAR HGB CONC 33.2 g/dl (32.0-36.5); MEAN CORPUSCULAR VOLUME 99.7 fl (80.0-96.0); PLATELET COUNT, AUTOMATED 259 10^3/uL (150-450); RED BLOOD COUNT 3.14 10^6/uL (4.00-5.40); RED CELL DISTRIBUTION WIDTH 12.8 % (11.5-14.5); WHITE BLOOD COUNT 8.9 10^3/uL (4.0-10.0)
[2018-04-09 06:21] LABS: ANION GAP 7 MEQ/L (8-16); BLOOD UREA NITROGEN 24 MG/DL (7-18); CALCIUM LEVEL 8.5 MG/DL (8.8-10.2); CARBON DIOXIDE LEVEL 28 MEQ/L (21-32); CHLORIDE LEVEL 106 MEQ/L (98-107); CREATININE FOR GFR 2.98 MG/DL (0.55-1.30); GLOMERULAR FILTRATION RATE 16.1 (>32); GLUCOSE, FASTING 226 MG/DL (70-100); POTASSIUM SERUM 3.8 MEQ/L (3.5-5.1); SODIUM LEVEL 141 MEQ/L (136-145)
[2018-04-09] MEDS: CARVedilol 6.25 MG TAB PO (08:57)
[2018-04-09] MEDS: ATORVASTATIN 10 MG TAB PO (08:58)
[2018-04-09] MEDS: amLODIPine 10 MG TAB PO (08:58)
[2018-04-09] MEDS: CLOPIDOGREL 75 MG TAB PO (08:59)
[2018-04-09] MEDS ORDERED: MEROPENEM INJ 500 MG in APPROPRIATE DILUENT 1 EA IV (09:00)
[2018-04-09] MEDS: CALCITRIOL 0.25 MCG CAP (S0169) PO (09:00)
[2018-04-09] MEDS: ASPIRIN 81 MG ENTERIC TAB PO (09:02)
[2018-04-09 12:30] LABS: BEDSIDE GLUCOSE 132 MG/DL (83-110)
[2018-04-09 17:11] LABS: BEDSIDE GLUCOSE 212 MG/DL (83-110)
[2018-04-09 18:06] LABS: VANCOMYCIN RANDOM 10.1 UG/ML
[2018-04-09] MEDS: MEROPENEM INJ 500 MG in APPROPRIATE DILUENT 1 EA IV (18:07)
[2018-04-09 19:50] LABS: BEDSIDE GLUCOSE 305 MG/DL (83-110)
[2018-04-10] MEDS: HEPARIN SOD (PORCINE) 5000 UNITS/ML VIAL SC ×3 (05:11→21:19)
[2018-04-10] MEDS: ACETAMINOPHEN 500 MG TAB PO (05:11)
[2018-04-10] MEDS: MIRALAX *UNIT DOSE* 17GM PACKET PO (06:28)
[2018-04-10 06:33] LABS: BEDSIDE GLUCOSE 117 MG/DL (83-110)
[2018-04-10] MEDS: HumaLOG INSULIN (NovoLOG) PER UNIT SC ×4 (08:08→21:13)
[2018-04-10] MEDS: CALCITRIOL 0.25 MCG CAP (S0169) PO (10:00)
[2018-04-10] MEDS: CARVedilol 6.25 MG TAB PO (10:00)
[2018-04-10] MEDS: CLOPIDOGREL 75 MG TAB PO (10:00)
[2018-04-10] MEDS: FAMOTIDINE 20 MG TAB PO ×2 (10:01→21:17)
[2018-04-10] MEDS: ATORVASTATIN 10 MG TAB PO (10:03)
[2018-04-10] MEDS: GABAPENTIN 100 MG CAP PO ×3 (10:03→21:18)
[2018-04-10] MEDS: amLODIPine 5 MG TAB PO (10:03)
[2018-04-10] MEDS: ASPIRIN 81 MG ENTERIC TAB PO (10:03)
[2018-04-10] MEDS: prednisoLONE ACET 1% OPHTH SUSP 5ML OS ×4 (10:06→21:19)
[2018-04-10] MEDS: KETOROLAC 0.5% OPHTH SOLN OS ×4 (10:06→21:19)
[2018-04-10] MEDS: FUROSEMIDE 40 MG TAB PO ×2 (10:06→21:18)
[2018-04-10] MEDS ORDERED: VANCOMYCIN HCL 1,000 MG, VIAL MATE ADAPTER 1 EACH in D5W 250 ML IV (10:15)
[2018-04-10] MEDS ORDERED: traMADol 50 MG TAB PO (13:00)
[2018-04-10] MEDS: DOXYCYCLINE HYCLATE 100 MG TAB PO ×2 (13:59→21:17)
[2018-04-10] MEDS ORDERED: **VANCO AFTER HD** MISC XX (16:00)
[2018-04-10 16:51] LABS: BEDSIDE GLUCOSE 264 MG/DL (83-110)
[2018-04-10] MEDS: traMADol 50 MG TAB PO (18:53)
[2018-04-10] MEDS: clonazePAM 0.5 MG TAB PO (18:56)
[2018-04-10] MEDS: FLEET ENEMA PR (19:18)
[2018-04-10 20:00] LABS: BEDSIDE GLUCOSE 198 MG/DL (83-110)
[2018-04-10 20:11] LABS: BEDSIDE GLUCOSE 276 MG/DL (83-110)
[2018-04-10] MEDS ORDERED: DOCUSATE SODIUM 100 MG CAP PO (21:15)
[2018-04-10] MEDS: DULoxetine 30 MG CAP (CYMBALTA) PO (21:18)
[2018-04-10] MEDS: LEVEMIR (INSULIN DETEMIR) 1 UNITS/0.01ML SC (21:19)
[2018-04-11] MEDS: clonazePAM 0.5 MG TAB PO (02:02)
[2018-04-11] MEDS: FUROSEMIDE 40 MG TAB PO (06:31)
[2018-04-11] MEDS: HEPARIN SOD (PORCINE) 5000 UNITS/ML VIAL SC (06:31)
[2018-04-11] MEDS: DOXYCYCLINE HYCLATE 100 MG TAB PO (06:32)
[2018-04-11] MEDS: ASPIRIN 81 MG ENTERIC TAB PO (06:32)
[2018-04-11] MEDS: FAMOTIDINE 20 MG TAB PO (06:32)
[2018-04-11] MEDS: GABAPENTIN 100 MG CAP PO (06:32)
[2018-04-11] MEDS: CALCITRIOL 0.25 MCG CAP (S0169) PO (06:32)
[2018-04-11] MEDS: prednisoLONE ACET 1% OPHTH SUSP 5ML OS (06:33)
[2018-04-11] MEDS: ATORVASTATIN 10 MG TAB PO (06:33)
[2018-04-11] MEDS: CLOPIDOGREL 75 MG TAB PO (06:33)
[2018-04-11] MEDS: KETOROLAC 0.5% OPHTH SOLN OS (06:33)
[2018-04-11] MEDS: CARVedilol 6.25 MG TAB PO (06:34)
[2018-04-11] MEDS: amLODIPine 5 MG TAB PO (06:34)
[2018-04-11] MEDS: HumaLOG INSULIN (NovoLOG) PER UNIT SC (06:41)
[2018-04-11 06:44] LABS: BEDSIDE GLUCOSE 199 MG/DL (83-110)
[2018-04-11] MEDS ORDERED: DARBEPOETIN 100 MCG/0.5 ML *DIALYSIS* SYRINGE (J0882) IV (08:00)
== END 2018-04-11 11:35 | disposition home or self-care (01) | DRG 862 ==
LOC: M MSPAV 04-09 00:43 → M ED 16:16 → M ED INP 23:45
DX: T81.4XXA Infection following a procedure, initial encounter (principal); N18.6 End stage renal disease; I12.0 Hypertensive chronic kidney disease with stage 5 chronic kidney disease or end stage renal disease; H95.89 Other postprocedural complications and disorders of the ear and mastoid process, not elsewhere classified; L03.312 Cellulitis of back [any part except buttock and flank]; N25.81 Secondary hyperparathyroidism of renal origin; E78.5 Hyperlipidemia, unspecified; E11.9 Type 2 diabetes mellitus without complications; I25.10 Atherosclerotic heart disease of native coronary artery without angina pectoris; I25.2 Old myocardial infarction; Z86.73 Personal history of transient ischemic attack (TIA), and cerebral infarction without residual deficits; Z95.1 Presence of aortocoronary bypass graft; Z85.828 Personal history of other malignant neoplasm of skin; H60.12 Cellulitis of left external ear; Z79.82 Long term (current) use of aspirin; Z79.899 Other long term (current) drug therapy; Z79.4 Long term (current) use of insulin; Z88.5 Allergy status to narcotic agent; Z88.0 Allergy status to penicillin; Z88.2 Allergy status to sulfonamides; Z88.8 Allergy status to other drugs, medicaments and biological substances; F32.9 Major depressive disorder, single episode, unspecified; F41.9 Anxiety disorder, unspecified; D63.1 Anemia in chronic kidney disease; B95.62 Methicillin resistant Staphylococcus aureus infection as the cause of diseases classified elsewhere; Y83.8 Other surgical procedures as the cause of abnormal reaction of the patient, or of later complication, without mention of misadventure at the time of the procedure

== ENCOUNTER 2019-01-25 11:45 | Inpatient (IN) | payer MEDICARE, MEDICAID ==
[~2019-01-25] VITALS: Ht 167.6 cm; Wt 71.9 kg
[~2019-01-25 11:45] MED LIST changes: -ACETAMINOPHEN 325 MG TAB PO; +ALBU17IN INH; +AMLO10TA PO; +AMLO10TA5 PO; +ASPI81TA26 PO; +ATOR1TAB19 PO; +CALC1CAP31 PO; +CARV6.25 PO; +CLIN150C14 PO; +CLON0.5T8 PO; +CORE6.25 PO; +CYMB1CAP5 PO; +DOXY100T PO; +FAMO1TAB11 PO; +FAMO1TAB25 PO; +GABA-1171 PO; +HUMA100I5 SC; +HYDR-3910 PO; +INSUH10VL SC; +INSULANT SC; +KETO0.5S2 OS; +KLOR10TA76 PO; +KLOR20TA42 PO; +LASI40TA9 PO; +MAGN400T5 PO; +METO25TA PO; +MIRA33504 PO; +NITR100C2 PO; +NYST1POW9 TOP; -PHENYLEPHRINE HCL 10 % OPHTH. SOL 5ML OS; +PLAV1TAB2 PO; +POTA10TA16 PO; +PREDOPD OS; +PREV15CA18 PO; -PROPARACAINE 0.5% OPHTH SOL 15ML OS; +ROCA0.25 PO; +SPIR-10 PO; +TRAM50TA2 PO; +TYLE500T78 PO; +VITA100066 PO; +VITA400C7 PO; +VITA500055 PO; +VITADRO5 PO
[2019-01-25 13:49] LABS: BASO % 0.4 % (0.0-1.0); EOS # 0.1 10^3/uL (0.0-0.50); EOS % 1.4 % (0.0-3.0); HEMATOCRIT 34.3 % (36.0-47.0); HEMOGLOBIN 10.6 g/dl (12.0-15.5); LYMPH # 2.2 10^3/uL (1.5-4.5); LYMPH % 26.1 % (24.0-44.0); MEAN CORPUSCULAR HGB CONC 30.9 g/dl (32.0-36.5); MEAN CORPUSCULAR VOLUME 103.6 fl (80.0-96.0); MONO % 11.5 % (0.0-5.0); NEUTROPHILS % 60.4 % (36.0-66.0); PLATELET COUNT, AUTOMATED 318 10^3/uL (150-450); RED BLOOD COUNT 3.31 10^6/uL (4.00-5.40); WHITE BLOOD COUNT 8.3 10^3/uL (4.0-10.0)
[2019-01-25] MEDS ORDERED: ACETAMINOPHEN TAB 650MG DOSE (2X325MG) PO ONE (14:30)
--- NOTE | 2019-01-25 14:54 | REP ---
CT Head without contrast HISTORY: Fall COMPARISON: 11/24/2016 Areas of decreased attenuation are present in the periventricular white matter. This represents small-vessel ischemic disease. There is no intraparenchymal hemorrhage, acute infarct, mass or midline shift. The ventricular system and cortical sulci are dilated consistent with mild volume loss. There is no extra cerebral collection. There is no fracture. The visualized sinuses are clear. IMPRESSION: 1. Small vessel ischemic disease. 2. Mild volume loss. Electronically Signed by Gato Braswell MD 01/25/2019 02:46 P
--- NOTE | 2019-01-25 14:59 | REP ---
CT cervical spine without contrast HISTORY: Fall COMPARISON: None There is no acute fracture or subluxation. A disc bulge is present at the C3-4 level. Disc bulges with associated osteophyte formation are present at the C4-5 through C6-7 levels. There is minimal to mild narrowing of the spinal canal. Uncinate process and/or facet hypertrophy are present at the C3-4 through C6-7 levels. These findings produce minimal to moderate narrowing of the the neural foramina. The C4-5 through C6-7 intervertebral discs are decreased in height consistent with disc degeneration. Calcification is present in the right thyroid lobe. IMPRESSION: 1. There is no acute fracture or subluxation. 2. There is cervical spondylosis at the C3-4 through C6-7 levels. Electronically Signed by Gato Braswell MD 01/25/2019 02:51 P
[2019-01-25 15:35] LABS: ALBUMIN 2.7 GM/DL (3.2-5.2); ALT/SGPT 21 U/L (12-78); BILIRUBIN,DIRECT < 0.1 MG/DL (0.0-0.2); BILIRUBIN,TOTAL 0.4 MG/DL (0.2-1.0); BLOOD UREA NITROGEN 39 MG/DL (7-18); CALCIUM LEVEL 8.3 MG/DL (8.8-10.2); CARBON DIOXIDE LEVEL 28 MEQ/L (21-32); CHLORIDE LEVEL 104 MEQ/L (98-107); CPK CREATINE PHOSPHOKINASE 70 U/L (26-192); CREATININE FOR GFR 5.66 MG/DL (0.55-1.30); GLOMERULAR FILTRATION RATE 7.7 (>32); GLUCOSE, FASTING 218 MG/DL (70-100); POTASSIUM SERUM 4.5 MEQ/L (3.5-5.1); SODIUM LEVEL 140 MEQ/L (136-145); TROPONIN I 0.04 NG/ML (< 0.10)
--- NOTE | 2019-01-25 15:36 | REP ---
RIGHT SHOULDER, THREE VIEWS: Three views of the right shoulder performed. No fracture or dislocation is seen. There is mild joint space narrowing and spurring at both the acromioclavicular and glenohumeral joints. A subclavian stent is seen. Vascular calcification and interstitial infiltrates are seen in the right lung. IMPRESSION: Degenerative changes without fracture or dislocation. Electronically Signed by Mando Aguero MD 01/26/2019 11:00 A
[2019-01-25 15:46] LABS: MB/CK RELATIVE INDEX 2.14 (< OR =4)
--- NOTE | 2019-01-25 16:00 | REP ---
Chest x-ray: Two views. History: Pneumonia. Comparison chest x-ray: November 24, 2016. Findings: The patient is status post median sternotomy. Moderate cardiomegaly is observed. Pulmonary vasculature is congested and indistinct. Interstitial markings are prominent, more so than on the prior study from November 2016. There is some fissural thickening on the lateral radiograph and posterior pleural angle blunting is seen bilaterally consistent with small bilateral effusions. There are degenerative changes in the thoracic spine. There is a vascular stent in the right subclavicular soft tissues. Impression: Cardiomegaly, vascular congestion, and interstitial edema. Some Yogi B lines. Slightly blunted posterior pleural angles bilaterally. CHF pattern. Electronically Signed by Lopez Alexander MD 01/25/2019 04:06 P
--- NOTE | 2019-01-25 16:05 | REP ---
Pelvis right hip: Three views: History: Pneumonia. Findings: AP view of the pelvis and AP and frog-leg views of the right hip are presented. The bony pelvic ring is intact. No pelvic or sacral fracture is appreciated. There are mild degenerative changes in the symphysis pubis. There is acetabular spurring bilaterally, right a little more so than left. Vascular calcifications noted. Femoral head is smooth and rounded. No fracture or bony erosive changes seen. Impression: Osteoarthritis. No acute bony abnormality. Electronically Signed by Lopez Alexander MD 01/25/2019 04:06 P
[2019-01-25] MEDS ORDERED: GLUCOSE 4 GM CHEW TABLET PO PRN (17:45)
[2019-01-25] MEDS ORDERED: KETOROLAC 30 MG/ML VIAL (J1885) IV ONE (17:45)
[2019-01-25] MEDS ORDERED: GLUCAGON FOR INJ 1 MG VIAL (J1610) SC PRN (17:45)
[2019-01-25] MEDS ORDERED: DEXTROSE 50% 50 ML SYRINGE IV PRN (17:45)
[2019-01-25] MEDS ORDERED: ZOFR4TAB16 PO (17:48)
[2019-01-25] MEDS ORDERED: VITAD1000T PO (17:48)
[2019-01-25] MEDS ORDERED: MIRA3350 PO (17:48)
--- NOTE | 2019-01-25 18:17 | REP ---
CT thoracic spine without contrast. HISTORY: Back pain COMPARISON : None There is no acute fracture or subluxation. There is no definite disc bulge or herniation. Small posterior osteophytes are present at the T7 -8 through T11-12 levels. Scattered areas of facet hypertrophy are present throughout the thoracic spine. There is minimal narrowing of the spinal canal. The visualized neural foramina are patent. There is loss of height of several mid and lower thoracic intervertebral discs. Vacuum phenomenon is present at the T11-12 and T12-L1 levels. These findings are consistent with disc degeneration. An increase in interstitial markings is present in the lungs. Bilateral pleural effusions are present. IMPRESSION: 1. There is no acute fracture or subluxation. 2. Degenerative change as described above. 3. There is an increase in interstitial markings in the lungs and bilateral pleural effusions. Electronically Signed by Gato Braswell MD 01/25/2019 06:08 P
[2019-01-25] MEDS ORDERED: GABA-1171 PO (18:31)
[2019-01-25] MEDS ORDERED: ATOR40TA75 PO (18:31)
[2019-01-25] MEDS ORDERED: FAMO20TA5 PO (18:31)
[2019-01-25 18:40] VITALS: BP 158/64
--- NOTE | 2019-01-25 19:05 | HPEPDOC ---
General Date of Admission Jan 25, 2019 at 16:54 Chief Complaint The patient is a 79-year-old female admitted with a reason for visit of Altered Mental State. Source: Patient, RN/MD, Old records, Other (records from other Hospital) Exam Limitations: No limitations Associated Symptoms: Nausea, Vomiting, Weakness, Other (diarrhea) History of Present Illness 78-year-old female with past medical history of end-stage renal disease on hemodialysis , hypertension, hyperlipidemia, diabetes, depression, coronary artery disease status post [place], history of TIA, history of coronary artery bypass graft surgery, history of basal cell carcinoma on the back and ear status post resection in 2018, GERD, COPD was recently admitted at [facility] from 01/13/19 to 01/21/19 for influenza and pneumonia. Prior to that admission she had a fall at home due to weakness on her right side and struck her right shoulder, right lateral chest wall and right side of the abdomen and was down on the floor unable to get up and was found by neighbors. She lives in a senior housing apartment complex At [facility] she was advised to go to rehab after hospitalization but the patient refused thinking that she was strong enough to manage by herself in her apartment. So she was discharged home. Since coming home she has continued to be extremely weak with severe body aches with extreme difficulty in ambulation. She also has been having nausea and dry heaves for the past 2 days and diarrhea for 2 days which she says seems to have stopped this am. She went to her routine HD today and on the way she was constantly sick in her stomach threw up 3 times and after reaching the HD unit she was extremely weak and could not get up by herself she was not feeling herself . The staff at the unit felt that she had altered mental status so she was sent to the ED for evaluation. She did not have her HD today. In the ED She had CT of head and CT cervical spine and Xray of right shoulder. There was no fracture or dislocation. SHe had a CXR also which showed pulmonary edema. She has not been able to keep anything down for the past 2 days. She is being admitted for intractable nausea and vomiting , unable to tolerate po intake with extreme generalized weakness and unable to ambulate. Home Medications Scheduled Amlodipine Besylate (Norvasc) 10 Mg Tab, 5 MG PO DAILY, (Reported) Aspirin (Aspirin EC) 81 Mg Tab, 81 MG PO DAILY, (Reported) Atorvastatin Calcium (Atorvastatin Calcium) 10 Mg Tab, 10 MG PO DAILY, (Reported) Calcitriol (Rocaltrol) 0.25 Mcg Cap, 0.5 MCG PO DAILY, (Reported) Carvedilol (Coreg) 6.25 Mg Tab, 6.25 MG PO DAILY, (Reported) Clindamycin Hcl (Clindamycin HCl) 150 Mg Cap, 150 MG PO QID, (Reported) Clopidogrel Bisulfate (Plavix) 75 Mg Tab, 75 MG PO DAILY, (Reported) Doxycycline Hyclate (Doxycycline Hyclate) 100 Mg Tab, 100 MG PO BID Duloxetine Hcl (Cymbalta) 30 Mg Cap, 30 MG PO DAILY, (Reported) Famotidine (Famotidine) 10 Mg Tab, 10 MG PO BID, (Reported) Furosemide (Lasix) 40 Mg Tab, 120 MG PO BID, (Reported) Gabapentin (Gabapentin) 100 Mg Cap, 200 MG PO TID Insulin Glargine (Lantus) 1 Units/0.01 Ml Susp, 24 UNITS SC QHS, (Reported) Insulin Lispro (Humalog Kwikpen U-100) 100 Unit/Ml Inj, 10 UNITS SC AC, (Reported) Ketorolac Tromethamine (Ketorolac Tromethamine) 0.5 % Stefani, 1 DROP OS QID, (Reported) Prednisolone Acetate (Prednisolone Acetate 1% Opth Susp) 100 Drop/5 Ml Susp, 1 DROP OS QID, (Reported) Vitamin D (Vitamin D3) 1,000 Unit Tablet, 2,000 UNITS PO DAILY, (Reported) Scheduled PRN Acetaminophen (Tylenol Extra Strength) 500 Mg Tab, 1,000 MG PO for PAIN, (Reported) Albuterol Sulfate (Ventolin Hfa) 200 Puff/8 Gm Aers, 2 PUFF INH QID PRN for SHORTNESS OF BREATH, (Reported) Clonazepam (Clonazepam) 0.5 Mg Tab, 0.5 MG PO BID PRN for ANXIETY, (Reported) Ondansetron HCl (Zofran) 4 Mg Tablet, 4 MG PO Q6H PRN for NAUSEA OR VOMITING, (Reported) Polyethylene Glycol 3350 (Miralax) 119 Gm Powder, 17 GM PO DAILY PRN for CONSTIPATION, (Reported) Tramadol HCl (Tramadol HCl) 50 Mg Tab, 50 MG PO Q6HP PRN for MODERATE PAIN (PS 5-7) Allergies Coded Allergies: ceftriaxone (Verified Allergy, Severe, SOB, hives,, 01/25/19) Penicillins (Verified Allergy, Intermediate, unknown , 01/25/19) codeine (Verified Allergy, Intermediate, hives/ rash, 01/25/19) nitroglycerin (Verified Allergy, Intermediate, unknown , 01/25/19) Sulfa (Sulfonamide Antibiotics) (Verified Adverse Reaction, Intermediate, dizziness, 01/25/19) Past Medical History Medical History ESRD, CAD, AMI, TIA, Diabetes, Hypertension, HLD, COPD, GERD, Basal cell carcinoma s/p resection, Neuropathy Surgical History CABG, Basal carcinoma on the back and ear, tonsillectomy, appendectomy, AVF creation Social History * Smoker: Denies Alcohol: Denies Drugs: denies A-FIB/CHADSVASC A-FIB History Current/History of A-Fib/PAF?: No Review of Systems Constitutional: Reports: Malaise, Weakness, Fatigue, Lethargy Skin: Denies: Rash, Lesions, Breakdown Pulmonary: Reports: Cough; Denies: Dyspnea, Pleuritic Chest Pain Cardiovascular: Reports: Chest Pain (on the right lateral where she hit when she fell), Edema Gastrointestinal: Reports: Nausea, Vomiting, Abdominal Pain, Diarrhea Hematologic: Denies: Bruising, Bleeding Excessively, Petecchia Musculoskeletal: Reports: Neck Pain, Back Pain, Shoulder Pain Neurological: Reports: Weakness Psych: Reports: Anxiety Physical Examination General Exam: Positive: Alert, Cooperative, Moderate Distress (due to severe back pain and neck pain and dry heaves) Eye Exam: Positive: PERRLA, Conjunctiva & lids normal, EOMI; Negative: Sclera icteric ENT Exam: Positive: Atraumatic, Tongue Midline Neck Exam: Positive: Supple, JVD, Other (tender to palpation) Chest Exam: Positive: Rales (bilateral fine crackles), Rhonchi (mild bilateral ronchi on expiration), Diminished Heart Exam: Positive: Rate Normal, Normal S1, Normal S2; Negative: Irregular Rhythm, Gallops, Murmurs, Rubs Telemetry: Positive: No significant arrhythmia Abdomen Exam: Positive: Normal bowel sounds, Soft, Tenderness (right flank) Extremity Exam: Positive: Edema, Tenderness (till the knee), Swelling Neuro Exam: Positive: Normal Speech Psych Exam: Positive: Anxiety, Memory Intact, Oriented x 3, Other (emotional and crying saying " I dont want to ") Vital Signs Vital Signs Date Time Temp Pulse Resp B/P (MAP) Pulse Ox O2 Delivery O2 Flow Rate FiO2 01/25/19 17:30 97.6 68 16 161/76 (104) 97 01/25/19 12:13 Room Air Laboratory Data Labs 24H Laboratory Tests 2 01/25/19 13:37: Immature Granulocyte % (Auto) 0.2, White Blood Count 8.3, Red Blood Count 3.31L, Hemoglobin 10.6L, Hematocrit 34.3L, Mean Corpuscular Volume 103.6H, Mean Corpuscular Hemoglobin 32.0, Mean Corpuscular Hemoglobin Concent 30.9L, Red Cell Distribution Width 13.2, Platelet Count 318, Neutrophils (%) (Auto) 60.4, Lymphocytes (%) (Auto) 26.1, Monocytes (%) (Auto) 11.5H, Eosinophils (%) (Auto) 1.4, Basophils (%) (Auto) 0.4, Neutrophils # (Auto) 5.0, Lymphocytes # (Auto) 2.2, Monocytes # (Auto) 1.0H, Eosinophils # (Auto) 0.1, Basophils # (Auto) 0.0, Nucleated Red Blood Cells % (auto) 0.0 01/25/19 13:38: Anion Gap 8, Glomerular Filtration Rate 7.7L, Calcium Level 8.3L, Aspartate Amino Transf (AST/SGOT) 15, Alanine Aminotransferase (ALT/SGPT) 21, Alkaline Phosphatase 88, Total Bilirubin 0.4, Direct Bilirubin < 0.1, Total Creatine Kinase 70, Creatine Kinase MB 2.0, Creatine Kinase MB Relative Index 2.14, Troponin I 0.04, Total Protein 7.0, Albumin 2.7L, Albumin/Globulin Ratio 0.63L, Thyroid Stimulating Hormone (TSH) 1.870 CBC/BMP Laboratory Tests 01/25/19 13:37 Red Blood Count 3.31 L, Mean Corpuscular Volume 103.6 H, Mean Corpuscular Hemoglobin 32.0, Mean Corpuscular Hemoglobin Concent 30.9 L, Red Cell Distribution Width 13.2, Neutrophils (%) (Auto) 60.4, Lymphocytes (%) (Auto) 26.1, Monocytes (%) (Auto) 11.5 H, Eosinophils (%) (Auto) 1.4, Basophils (%) (Auto) 0.4, Neutrophils # (Auto) 5.0, Lymphocytes # (Auto) 2.2, Monocytes # (Auto) 1.0 H, Eosinophils # (Auto) 0.1, Basophils # (Auto) 0.0 01/25/19 13:38 Assessment/Plan 78-year-old female with past medical history of end-stage renal disease on hemodialysis , hypertension, hyperlipidemia, diabetes, depression, coronary artery disease status post [place], history of TIA, history of coronary artery bypass graft surgery, history of basal cell carcinoma on the back and ear status post resection in 2018, GERD, COPD was recently admitted at [facility] from 01/13/19 to 01/21/19 for influenza and pneumonia. Prior to that admission she had a fall at home due to weakness on her right side and struck her right shoulder, right lateral chest wall and right side of the abdomen and was down on the floor unable to get up and was found by neighbors. She lives in a senior housing apartment complex At [facility] she was advised to go to rehab after hospitalization but the patient refused thinking that she was strong enough to manage by herself in her apartment. So she was discharged home. Since coming home she has continued to be extremely weak with severe body aches with extreme difficulty in ambulation. She also has been having nausea and dry heaves for the past 2 days and diarrhea for 2 days which she says seems to have stopped this am. She went to her routine HD today and on the way she was constantly sick in her stomach threw up 3 times and after reaching the HD unit she was extremely weak and could not get up by herself she was not feeling herself . The staff at the unit felt that she had altered mental status so she was sent to the ED for evaluation. She did not have her HD today. In the ED She had CT of head and CT cervical spine and Xray of right shoulder. There was no fracture or dislocation. SHe had a CXR also which showed pulmonary edema. She has not been able to keep anything down for the past 2 days. She is being admitted for intractable nausea and vomiting , unable to tolerate po intake with extreme generalized weakness and unable to ambulate. Intractable nausea and vomiting Most probably acute gastritis/ duodenitis after recent hospitalization for pneumonia and FLU if does not resolve will get CT abdomen and also gastric emptying study. will give pantoprazole, zofran Back pain and neck pain CT neck reviewed shows spondylosis but no fracture or dislocation will get CT thoracic spine. will give one time toradol then will continue with tramadol and tylenol. Extreme weakness, physical deconditioning and difficulty in ambulation with recent fall soreness on the right side of the body persisting since the fall. due to recent influenza, pneumonia with hospitalization will consult PT will probably need rehab ESRD CXR suggestive of mild fluid overload will consult nephrology for maintenance HD. Electrolytes OK. CHF exacerbation in a patient with CAD, ESRD and recent hospitalization will get echo. oxygen supplementation as needed. Maintenance of fluid status by HD Diabetes with Neuropathy will continue lispro and levemir insulin continue cymbalta gabapentin. Hypertension continue coreg. CAD with h/o AMI and CABG int he past. no acute issues at this point. EKG with RBBB no signs of ongoing ischemia Hyperlipidemia will continue statins COPD will give nebs GERD will give pantoprazole and sucralfate. Plan / VTE VTE Prophylaxis Ordered?: Yes ADAM SOLITARIO MD Jan 25, 2019 19:05
[2019-01-25] MEDS: ONDANSETRON 4MG/2ML VIAL (J2405) IV PRN (20:44)
[2019-01-25] MEDS: HumaLOG INSULIN (NovoLOG) PER UNIT SC SCH (21:00)
[2019-01-25] MEDS ORDERED: FUROSEMIDE 40 MG/4 ML VIAL (J1940) IV ONE (21:00)
[2019-01-25 22:00] VITALS: BP 150/70
[2019-01-25] MEDS: SUCRALFATE 1 GM TAB PO SCH (22:14)
[2019-01-25] MEDS: FUROSEMIDE 40 MG TAB PO SCH (22:14)
[2019-01-25] MEDS: traMADol 50 MG TAB PO SCH (22:17)
[2019-01-25] MEDS: GABAPENTIN 100 MG CAP PO SCH (22:18)
--- NOTE | 2019-01-25 22:18 | ECGEPIP ---
Stationary ECG Study [facility] - ED Test Date: 2019-01-25 Pat Name: DEION JADE Department: Room: - Gender: F Inverform Machine Operator: : [id number] Requested By: JEAN-CLAUDE Peñaloza Order Number: [id number] Reading MD: Cody Melchor Measurements Intervals [place] Rate: 67 P: 12 KS: 158 QRS: -26 QRSD: 131 T: 70 QT: 451 QTc: 477 Interpretive Statements SINUS RHYTHM BORDERLINE LEFT AXIS DEVIATION RIGHT BUNDLE BRANCH BLOCK LEFT VENTRICULAR HYPERTROPHY AND ST-T CHANGE SIMILAR TO 11/24/16 Electronically Signed On 01-25-2019 22:18:41 EDT by Cody Melchor
[2019-01-26] MEDS ORDERED: HumaLOG INSULIN (NovoLOG) PER UNIT SC ONE
[2019-01-26] MEDS ORDERED: FUROSEMIDE 40 MG/4 ML VIAL (J1940) IV ONE
[2019-01-26 00:29] LABS: ABG BASE EXCESS -3.7 (-2.0-2.0); ABG HCO3 23.2 MEQ/L (22.0-26.0); ABG PARTIAL PRESSURE CO2 50.6 mmHg (35.0-45.0); ABG PARTIAL PRESSURE O2 73.4 mmHg (75.0-100.0); ABG STANDARD HCO3 21.3 MEQ/L (22.0-26.0); ABG TOTAL CO2 24.8 MEQ/L (23.0-31.0)
[2019-01-26] MEDS ORDERED: IPRATROPIUM 0.5MG/ALBUTEROL 2.5MG INH SOL UD 3ML (DUONEB)(J7620) NEB PRN (02:30)
[2019-01-26 06:00] VITALS: BP 164/76
[2019-01-26] MEDS: SUCRALFATE 1 GM TAB PO SCH ×3 (06:00→21:22)
[2019-01-26] MEDS: CALCITRIOL 0.25 MCG CAP (S0169) PO SCH (07:14)
[2019-01-26] MEDS: DULoxetine 30 MG CAP (CYMBALTA) PO SCH (07:15)
[2019-01-26] MEDS: ATORVASTATIN 20 MG TAB PO SCH (07:15)
[2019-01-26] MEDS: CARVedilol 6.25 MG TAB PO SCH (07:15)
[2019-01-26] MEDS: CLOPIDOGREL 75 MG TAB PO SCH (07:15)
[2019-01-26] MEDS: ASPIRIN 81 MG ENTERIC TAB PO SCH (07:15)
[2019-01-26] MEDS: FUROSEMIDE 40 MG TAB PO SCH ×2 (07:15→21:22)
[2019-01-26] MEDS: PANTOPRAZOLE 40MG INJ (PROTONIX) (C9113) IV SCH (07:16)
[2019-01-26] MEDS: traMADol 50 MG TAB PO SCH ×3 (07:16→21:22)
[2019-01-26] MEDS: HEPARIN SOD (PORCINE) 5000 UNITS/ML VIAL SC SCH ×2 (07:17→21:22)
[2019-01-26 07:37] LABS: BASO % 0.2 % (0.0-1.0); EOS % 0.1 % (0.0-3.0); HEMATOCRIT 36.1 % (36.0-47.0); LYMPH # 1.3 10^3/uL (1.5-4.5); LYMPH % 9.9 % (24.0-44.0); MEAN CORPUSCULAR HEMOGLOBIN 31.7 pg (27.0-33.0); MEAN CORPUSCULAR HGB CONC 30.5 g/dl (32.0-36.5); MONO # 0.9 10^3/uL (0.0-0.8); MONO % 6.8 % (0.0-5.0); NEUTROPHILS # 10.9 10^3/uL (1.8-7.7); NEUTROPHILS % 82.6 % (36.0-66.0); PLATELET COUNT, AUTOMATED 353 10^3/uL (150-450); RED BLOOD COUNT 3.47 10^6/uL (4.00-5.40); WHITE BLOOD COUNT 13.2 10^3/uL (4.0-10.0)
[2019-01-26] MEDS: ALBUTEROL SULFATE 2.5 MG/0.5 ML INH NEB SOLN NEB SCH ×2 (07:45→15:26)
[2019-01-26 07:59] LABS: CALCIUM LEVEL 8.6 MG/DL (8.8-10.2); CREATININE FOR GFR 6.19 MG/DL (0.55-1.30); GLOMERULAR FILTRATION RATE 6.9 (>32); POTASSIUM SERUM 5.3 MEQ/L (3.5-5.1)
[2019-01-26] MEDS: HumaLOG INSULIN (NovoLOG) PER UNIT SC SCH ×4 (08:13→21:00)
[2019-01-26] MEDS: LEVEMIR (INSULIN DETEMIR) 1 UNITS/0.01ML SC SCH ×2 (08:13→21:00)
[2019-01-26] MEDS ORDERED: HEPARIN 1,000 UNITS/ML 10ML VIAL (FOR RADIOLOGY& DIALYSIS ONLY) IV ONE (12:00)
[2019-01-26] MEDS ORDERED: LIDOCAINE 1% SDV 5 ML VIAL SQ ONE (12:00)
[2019-01-26 13:20] VITALS: BP 141/62
--- NOTE | 2019-01-26 13:28 | IPNPDOC ---
Subjective Date Seen The patient was seen on 01/26/19. Subjective Chief Complaint/HPI confusion, nausea, vomiting, extreme weakness Events since last encounter Patient still feels extremely weak and completely washed out. Says no appetite and no energy. She is seen in the HD unit tolerating treatment without issues. Still complains of some epigastric and periumbilical pain but no further vomiting or dry heaves. Di have some nausea this morning. Her shoulder, neck and back pain is much better controlled today. Objective Physical Examination General Exam: Positive: Alert, Cooperative, Moderate Distress (due to severe back pain and neck pain and dry heaves) Eye Exam: Positive: PERRLA, Conjunctiva & lids normal, EOMI; Negative: Sclera icteric ENT Exam: Positive: Atraumatic, Tongue Midline Neck Exam: Positive: Supple, JVD, Other (tender to palpation) Chest Exam: Positive: Rales (bilateral fine crackles), Rhonchi (mild bilateral ronchi on expiration), Diminished Heart Exam: Positive: Rate Normal, Normal S1, Normal S2; Negative: Irregular Rhythm, Gallops, Murmurs, Rubs Telemetry: Positive: No significant arrhythmia Abdomen Exam: Positive: Normal bowel sounds, Soft, Tenderness (right flank) Extremity Exam: Positive: Edema, Tenderness (till the knee), Swelling Neuro Exam: Positive: Normal Speech Psych Exam: Positive: Anxiety, Memory Intact, Oriented x 3, Other (emotional and crying saying " I dont want to ") A-FIB/CHADSVASC A-FIB History Current/History of A-Fib/PAF?: No Assessment /Plan Assessment 78-year-old female with past medical history of end-stage renal disease on hemodialysis , hypertension, hyperlipidemia, diabetes, depression, coronary artery disease status post [place], history of TIA, history of coronary artery bypass graft surgery, history of basal cell carcinoma on the back and ear status post resection in 2018, GERD, COPD was recently admitted at [facility] from 01/13/19 to 01/21/19 for influenza and pneumonia. Prior to that admission she had a fall at home due to weakness on her right side and struck her right shoulder, right lateral chest wall and right side of the abdomen and was down on the floor unable to get up and was found by neighbors. She lives in a senior housing apartment complex At [facility] she was advised to go to rehab after hospitalization but the patient refused thinking that she was strong enough to manage by herself in her apartment. So she was discharged home. Since coming home she has continued to be extremely weak with severe body aches with extreme difficulty in ambulation. She also has been having nausea and dry heaves for the past 2 days and diarrhea for 2 days which she says seems to have stopped this am. She went to her routine HD today and on the way she was constantly sick in her stomach threw up 3 times and after reaching the HD unit she was extremely weak and could not get up by herself she was not feeling herself . The staff at the unit felt that she had altered mental status so she was sent to the ED for evaluation. She did not have her HD today. In the ED She had CT of head and CT cervical spine and Xray of right shoulder. There was no fracture or dislocation. SHe had a CXR also which showed pulmonary edema. She has not been able to keep anything down for the past 2 days. She is being admitted for intractable nausea and vomiting , unable to tolerate po intake with extreme generalized weakness and unable to ambulate. Intractable nausea and vomiting Most probably acute gastritis/ duodenitis after recent hospitalization for pneumonia and FLU seems to be improving if does not resolve will get CT abdomen and also gastric emptying study. Continue pantoprazole, zofran, sucralfate Back pain and neck pain CT neck reviewed shows spondylosis but no fracture or dislocation CT thoracic spine reviewed no acute fracture or dislocation shows diffuse degenerative changes. continue with tramadol and tylenol. Extreme weakness, physical deconditioning and difficulty in ambulation with recent fall soreness on the right side of the body persisting since the fall. due to recent influenza, pneumonia with hospitalization will consult PT will probably need rehab ESRD CXR suggestive of mild fluid overload will get Echo. maintenance HD as per Nephrology CHF exacerbation in a patient with CAD, ESRD and recent hospitalization will get echo. oxygen supplementation as needed. Maintenance of fluid status by HD continue lasix home dosage. Diabetes with Neuropathy will continue lispro and levemir insulin continue cymbalta gabapentin. Hypertension continue coreg. CAD with h/o AMI and CABG int he past. no acute issues at this point. EKG with RBBB no signs of ongoing ischemia Hyperlipidemia will continue statins COPD will give nebs GERD will give pantoprazole and sucralfate. Plan/VTE VTE Prophylaxis Ordered?: Yes VS, I&O, 24H, Fishbone Vital Signs/I&O Vital Signs Date Time Temp Pulse Resp B/P (MAP) Pulse Ox O2 Delivery O2 Flow Rate FiO2 01/26/19 07:50 2.0 01/26/19 07:16 22 01/26/19 06:00 98.3 85 164/76 (105) 95 01/25/19 18:15 Nasal Cannula I&O- Last 24 Hours up to 6 AM 01/26/19 06:00 Intake Total 120 ml Output Total 75 ml Balance 45 ml Laboratory Data 24H LABS Laboratory Tests 2 01/25/19 13:37: Immature Granulocyte % (Auto) 0.2, White Blood Count 8.3, Red Blood Count 3.31L, Hemoglobin 10.6L, Hematocrit 34.3L, Mean Corpuscular Volume 103.6H, Mean Corpuscular Hemoglobin 32.0, Mean Corpuscular Hemoglobin Concent 30.9L, Red Cell Distribution Width 13.2, Platelet Count 318, Neutrophils (%) (Auto) 60.4, Lymphocytes (%) (Auto) 26.1, Monocytes (%) (Auto) 11.5H, Eosinophils (%) (Auto) 1.4, Basophils (%) (Auto) 0.4, Neutrophils # (Auto) 5.0, Lymphocytes # (Auto) 2.2, Monocytes # (Auto) 1.0H, Eosinophils # (Auto) 0.1, Basophils # (Auto) 0.0, Nucleated Red Blood Cells % (auto) 0.0 01/25/19 13:38: Anion Gap 8, Glomerular Filtration Rate 7.7L, Calcium Level 8.3L, Aspartate Amino Transf (AST/SGOT) 15, Alanine Aminotransferase (ALT/SGPT) 21, Alkaline Phosphatase 88, Total Bilirubin 0.4, Direct Bilirubin < 0.1, Total Creatine Kinase 70, Creatine Kinase MB 2.0, Creatine Kinase MB Relative Index 2.14, Troponin I 0.04, Total Protein 7.0, Albumin 2.7L, Albumin/Globulin Ratio 0.63L, Thyroid Stimulating Hormone (TSH) 1.870 01/25/19 20:15: Bedside Glucose (Misc Panel) 150H 01/25/19 23:01: Bedside Glucose (Misc Panel) 319H 01/25/19 23:03: Bedside Glucose (Misc Panel) 380H 01/26/19 00:17: Blood Gas Bicarbonate Standard 21.3L, Arterial Blood pH 7.280L, Arterial Blood Partial Pressure CO2 50.6H, Arterial Blood Partial Pressure O2 73.4L, Arterial Blood Total CO2 24.8, Arterial Blood HCO3 23.2, Arterial Blood Base Excess - 3.7L, Arterial Blood Oxygen Saturation 93.0L 01/26/19 05:38: Bedside Glucose (Misc Panel) 189H 01/26/19 07:12: Immature Granulocyte % (Auto) 0.4, White Blood Count 13.2H, Red Blood Count 3.47L, Hemoglobin 11.0L, Hematocrit 36.1, Mean Corpuscular Volume 104.0H, Mean Corpuscular Hemoglobin 31.7, Mean Corpuscular Hemoglobin Concent 30.5L, Red Cell Distribution Width 13.2, Platelet Count 353, Neutrophils (%) (Auto) 82.6H, Lymph ocytes (%) (Auto) 9.9L, Monocytes (%) (Auto) 6.8H, Eosinophils (%) (Auto) 0.1, Basophils (%) (Auto) 0.2, Neutrophils # (Auto) 10.9H, Lymphocytes # (Auto) 1.3L, Monocytes # (Auto) 0.9H, Eosinophils # (Auto) 0.0, Basophils # (Auto) 0.0, Nucleated Red Blood Cells % (auto) 0.0, Anion Gap 8, Glomerular Filtration Rate 6.9L, Blood Urea Nitrogen 45H, Creatinine 6.19H, Sodium Level 138, Potassium Level 5.3H, Chloride Level 104, Carbon Dioxide Level 26, Calcium Level 8.6L 01/26/19 11:45: CBC/BMP Laboratory Tests 01/25/19 13:37 Red Blood Count 3.31 L, Mean Corpuscular Volume 103.6 H, Mean Corpuscular Hemoglobin 32.0, Mean Corpuscular Hemoglobin Concent 30.9 L, Red Cell Distributi on Width 13.2, Neutrophils (%) (Auto) 60.4, Lymphocytes (%) (Auto) 26.1, Monocytes (%) (Auto) 11.5 H, Eosinophils (%) (Auto) 1.4, Basophils (%) (Auto) 0.4, Neutrophils # (Auto) 5.0, Lymphocytes # (Auto) 2.2, Monocytes # (Auto) 1.0 H, Eosinophils # (Auto) 0.1, Basophils # (Auto) 0.0 01/25/19 13:38 01/26/19 07:12 Red Blood Count 3.47 L, Mean Corpuscular Volume 104.0 H, Mean Corpuscular Hemoglobin 31.7, Mean Corpuscular Hemoglobin Concent 30.5 L, Red Cell Distribution Width 13.2, Neutrophils (%) (Auto) 82.6 H, Lymphocytes (%) (Auto) 9.9 L, Monocytes (%) (Auto) 6.8 H, Eosinophils (%) (Auto) 0.1, Basophils (%) (Auto) 0.2, Neutrophils # (Auto) 10.9 H, Lymphocytes # (Auto) 1.3 L, Monocytes # (Auto) 0.9 H, Eosinophils # (Auto) 0.0, Basophils # (Auto) 0.0, Calcium Level 8.6 L Microbiology Microbiology 01/25/19 Respiratory Virus Panel (PCR) ([facility]) - Final, Complete ADAM SOLITARIO MD Jan 26, 2019 13:28
[2019-01-26] MEDS: ONDANSETRON 4MG/2ML VIAL (J2405) IV PRN (13:40)
[2019-01-26] MEDS: ACETAMINOPHEN 500 MG TAB PO PRN (14:15)
[2019-01-26] MEDS: GABAPENTIN 100 MG CAP PO SCH (21:22)
[2019-01-26 22:00] VITALS: BP 121/46
[2019-01-27 05:58] LABS: BASO % 0.2 % (0.0-1.0); EOS # 0.1 10^3/uL (0.0-0.50); EOS % 1.4 % (0.0-3.0); HEMATOCRIT 31.4 % (36.0-47.0); HEMOGLOBIN 9.7 g/dl (12.0-15.5); LYMPH # 2.4 10^3/uL (1.5-4.5); LYMPH % 25.2 % (24.0-44.0); MEAN CORPUSCULAR HEMOGLOBIN 31.9 pg (27.0-33.0); MEAN CORPUSCULAR HGB CONC 30.9 g/dl (32.0-36.5); MEAN CORPUSCULAR VOLUME 103.3 fl (80.0-96.0); MONO # 1.2 10^3/uL (0.0-0.8); MONO % 12.2 % (0.0-5.0); NEUTROPHILS # 5.8 10^3/uL (1.8-7.7); NEUTROPHILS % 60.8 % (36.0-66.0); PLATELET COUNT, AUTOMATED 300 10^3/uL (150-450); RED BLOOD COUNT 3.04 10^6/uL (4.00-5.40); WHITE BLOOD COUNT 9.5 10^3/uL (4.0-10.0)
[2019-01-27 06:00] VITALS: BP 128/48
[2019-01-27 06:32] LABS: CALCIUM LEVEL 8.4 MG/DL (8.8-10.2); CREATININE FOR GFR 4.42 MG/DL (0.55-1.30); GLOMERULAR FILTRATION RATE 10.2 (>32); POTASSIUM SERUM 4.2 MEQ/L (3.5-5.1)
[2019-01-27] MEDS: SUCRALFATE 1 GM TAB PO SCH ×3 (06:47→21:35)
[2019-01-27] MEDS: BUDESONIDE 0.5 MG/2 ML INHALATION SUSPENSION INH SCH ×2 (07:16→21:16)
[2019-01-27] MEDS: ALBUTEROL SULFATE 2.5 MG/0.5 ML INH NEB SOLN NEB SCH ×3 (07:17→14:55)
--- NOTE | 2019-01-27 07:26 | ECHO ---
DATE OF PROCEDURE: 01/26/2019 REFERRING PHYSICIAN: Dr. Newsome INDICATION: Congestive heart failure. HEIGHT: 168 cm WEIGHT: 70 kg DIMENSIONS: IVS: 1.4 cm LV: 5.2 cm LVPW: 1.1 cm LA: 5.1 cm Aorta: 2.9 cm IVC: 2.0 cm Left atrial volume index: 42 Mitral E wave velocity: 121 A wave: 114 E prime septal: 3.7 E prime lateral: 4.6 FINDINGS: The study is of acceptable technical quality. The patient is in sinus rhythm. Left ventricle is normal size and overall normal systolic function. I estimate left ventricular ejection fraction (LVEF) around 50-55%. Right ventricle does not appear grossly enlarged. Left atrium is severely enlarged. Right atrium appears at least mildly enlarged. Aortic valve has three cusps. It is sclerotic, but mobility of cusp is preserved. There are very prominent mitral annular calcifications, especially at the base of posterior mitral leaflet. There is somewhat restricted motion of the leaflet and by 2-D imaging I assume mild mitral stenosis. Tricuspid valve appears normal. Pulmonic valve was not visualized. No pericardial effusion is noted. Inferior vena cava is on upper limits of normal size, but completely collapses with respiration indicative of likely normal central venous pressure. Aortic root and aortic arch appear normal. Abdominal aorta was not seen. Doppler interrogation of aortic valve reveals no stenosis and mild insufficiency. There is also mild mitral insufficiency. There is mild mitral stenosis with mean gradient across the valve of only 3 mmHg. There is trace tricuspid insufficiency. Calculated pulmonary artery pressure was within normal limits. Mitral inflow pattern and tissue Doppler imaging of mitral annulus revealed grade 2 diastolic dysfunction. CONCLUSIONS: 1. Study is of acceptable technical quality. 2. Normal LV size with grossly preserved LV systolic function and grade 2 diastolic dysfunction. Mild left ventricular hypertrophy (LVH). 3. Aortic sclerosis resulting in no significant stenosis and mild insufficiency. 4. Prominent degenerative abnormalities of mitral valve resulting in mild mitral stenosis and mild mitral insufficiency. 5. Likely normal central venous pressure and now normal pulmonary artery pressure. COMMENT: Subacute bacterial endocarditis (SBE) prophylaxis is not recommended.
[2019-01-27] MEDS: CALCITRIOL 0.25 MCG CAP (S0169) PO SCH (08:42)
[2019-01-27] MEDS: ASPIRIN 81 MG ENTERIC TAB PO SCH (08:43)
[2019-01-27] MEDS: CLOPIDOGREL 75 MG TAB PO SCH (08:43)
[2019-01-27] MEDS: ATORVASTATIN 20 MG TAB PO SCH (08:43)
[2019-01-27] MEDS: DULoxetine 30 MG CAP (CYMBALTA) PO SCH (08:43)
[2019-01-27] MEDS: FUROSEMIDE 40 MG TAB PO SCH ×2 (08:43→21:34)
[2019-01-27] MEDS: traMADol 50 MG TAB PO SCH ×3 (08:44→21:37)
[2019-01-27] MEDS: CARVedilol 6.25 MG TAB PO SCH (08:44)
[2019-01-27] MEDS: HEPARIN SOD (PORCINE) 5000 UNITS/ML VIAL SC SCH ×2 (08:44→21:35)
[2019-01-27] MEDS: PANTOPRAZOLE 40MG INJ (PROTONIX) (C9113) IV SCH (08:45)
[2019-01-27] MEDS: LEVEMIR (INSULIN DETEMIR) 1 UNITS/0.01ML SC SCH ×2 (08:45→21:35)
[2019-01-27] MEDS: HumaLOG INSULIN (NovoLOG) PER UNIT SC SCH ×4 (08:46→21:00)
--- NOTE | 2019-01-27 11:25 | IPNPDOC ---
Subjective Date Seen The patient was seen on 01/27/19. Subjective Chief Complaint/HPI weakness, nausea, vomiting, confusion Events since last encounter Patient feels better this morning. She feels a little stronger. Her nausea and vomiting has resolved. Still has a little soreness in the left upper abdomen and left lumber region. Her appetite is a little better this morning and ready to try solid food today. No fever or chills. Her pain in the neck , back and shoulder after the fall is better controlled. She is agreeable to go to rehab. Objective Physical Examination General Exam: Positive: Alert, Cooperative, No Acute Distress Eye Exam: Positive: PERRLA, Conjunctiva & lids normal, EOMI; Negative: Sclera icteric ENT Exam: Positive: Atraumatic, Tongue Midline Neck Exam: Positive: Supple, JVD, Other (tender to palpation) Chest Exam: Positive: Clear to auscultation, Rales (crackles at both bases), Diminished Heart Exam: Positive: Rate Normal, Normal S1, Normal S2; Negative: Irregular Rhythm, Gallops, Murmurs, Rubs Abdomen Exam: Positive: Normal bowel sounds, Soft; Negative: Tenderness Extremity Exam: Positive: Edema (trace) Skin Exam: Positive: Other skin issue (bruising at the back of the neck and right side of the neck) Neuro Exam: Positive: Normal Speech Psych Exam: Positive: Mood NL, Memory Intact, Oriented x 3 A-FIB/CHADSVASC A-FIB History Current/History of A-Fib/PAF?: No Assessment /Plan Assessment 78-year-old female with past medical history of end-stage renal disease on hemodialysis , hypertension, hyperlipidemia, diabetes, depression, coronary artery disease status post [place], history of TIA, history of coronary artery bypass graft surgery, history of basal cell carcinoma on the back and ear status post resection in 2018, GERD, COPD was recently admitted at [facility] from 01/13/19 to 01/21/19 for influenza and pneumonia. Prior to that admission she had a fall at home due to weakness on her right side and struck her right shoulder, right lateral chest wall and right side of the abdomen and was down on the floor unable to get up and was found by neighbors. She lives in a senior housing apartment complex At [facility] she was advised to go to rehab after hospitalization but the patient refused thinking that she was strong enough to manage by herself in her apartment. So she was discharged home. Since coming home she has continued to be extremely weak with severe body aches with extreme difficulty in ambulation. She also has been having nausea and dry heaves for the past 2 days and diarrhea for 2 days which she says seems to have stopped this am. She went to her routine HD today and on the way she was constantly sick in her stomach threw up 3 times and after reaching the HD unit she was extremely weak and could not get up by herself she was not feeling herself . The staff at the unit felt that she had altered mental status so she was sent to the ED for evaluation. She did not have her HD today. In the ED She had CT of head and CT cervical spine and Xray of right shoulder. There was no fracture or dislocation. SHe had a CXR also which showed pulmonary edema. She has not been able to keep anything down for the past 2 days. She is being admitted for intractable nausea and vomiting , unable to tolerate po intake with extreme generalized weakness and unable to ambulate. Intractable nausea and vomiting Most probably acute gastritis/ duodenitis after recent hospitalization for pneumonia and FLU contributed to by severe pain . improving Continue pantoprazole, zofran, sucralfate Back pain and neck pain CT neck reviewed shows spondylosis but no fracture or dislocation CT thoracic spine reviewed no acute fracture or dislocation shows diffuse degenerative changes. continue with tramadol and tylenol. Extreme weakness, physical deconditioning and difficulty in ambulation with recent fall soreness on the right side of the body persisting since the fall. due to recent influenza, pneumonia with hospitalization will consult PT will need rehab ESRD CXR suggestive of mild fluid overload maintenance HD as per Nephrology Diastolic CHF exacerbation in the background of ESRD. Echo shows grade 2 diastolic dysfunction and EF of 50% to 55%, No pulmonary hypertension noted, No pericardial effusion. oxygen supplementation as needed. Maintenance of fluid status by HD continue lasix home dosage. Diabetes with Neuropathy will continue lispro and levemir insulin continue cymbalta gabapentin. Hypertension continue coreg. CAD with h/o AMI and CABG int he past. no acute issues at this point. EKG with RBBB no signs of ongoing ischemia Hyperlipidemia will continue statins COPD will give nebs albuterol and budesonide. GERD will give pantoprazole and sucralfate. Plan/VTE VTE Prophylaxis Ordered?: Yes VS, I&O, 24H, Fishbone Vital Signs/I&O Vital Signs Date Time Temp Pulse Resp B/P (MAP) Pulse Ox O2 Delivery O2 Flow Rate FiO2 01/27/19 08:44 74 134/50 01/27/19 08:44 16 01/27/19 06:00 98.3 95 2.0 01/25/19 18:15 Nasal Cannula I&O- Last 24 Hours up to 6 AM 01/27/19 06:00 Intake Total 560 ml Output Total 2375 ml Balance -1815 ml Laboratory Data 24H LABS Laboratory Tests 2 01/26/19 11:45: 01/26/19 13:27: Bedside Glucose (Misc Panel) 116H 01/26/19 17:23: Bedside Glucose (Misc Panel) 176H 01/26/19 21:08: Bedside Glucose (Misc Panel) 91 01/26/19 23:45: Bedside Glucose (Misc Panel) 110 01/27/19 05:27: Anion Gap 6L, Glomerular Filtration Rate 10.2L, Blood Urea Nitrogen 27H, Creatinine 4.42H, Sodium Level 138, Potassium Level 4.2#, Chloride Level 102, Carbon Dioxide Level 30, Calcium Level 8.4L 01/27/19 05:28: Immature Granulocyte % (Auto) 0.2, White Blood Count 9.5, Red Blood Count 3.04L, Hemoglobin 9.7L, Hematocrit 31.4L, Mean Corpuscular Volume 103.3H, Mean Corpuscular Hemoglobin 31.9, Mean Corpuscular Hemoglobin Concent 30.9L, Red Cell Distribution Width 13.3, Platelet Count 300, Neutrophils (%) (Auto) 60.8, Lymphocytes (%) (Auto) 25.2, Monocytes (%) (Auto) 12.2H, Eosinophils (%) (Auto) 1.4, Basophils (%) (Auto) 0.2, Neutrophils # (Auto) 5.8, Lymphocytes # (Auto) 2.4, Monocytes # (Auto) 1.2H, Eosinophils # (Auto) 0.1, Basophils # (Auto) 0.0, Nucleated Red Blood Cells % (auto) 0.0 CBC/BMP Laboratory Tests 01/27/19 05:27 Calcium Level 8.4 L 01/27/19 05:28 Red Blood Count 3.04 L, Mean Corpuscular Volume 103.3 H, Mean Corpuscular Hemoglobin 31.9, Mean Corpuscular Hemoglobin Concent 30.9 L, Red Cell Distribution Width 13.3, Neutrophils (%) (Auto) 60.8, Lymphocytes (%) (Auto) 25.2, Monocytes (%) (Auto) 12.2 H, Eosinophils (%) (Auto) 1.4, Basophils (%) (Auto) 0.2, Neutrophils # (Auto) 5.8, Lymphocytes # (Auto) 2.4, Monocytes # (Auto) 1.2 H, Eosinophils # (Auto) 0.1, Basophils # (Auto) 0.0 Microbiology Microbiology 01/25/19 Respiratory Virus Panel (PCR) ([facility]) - Final, Complete ADAM SOLITARIO MD Jan 27, 2019 11:25
[2019-01-27] MEDS ORDERED: LIDOCAINE 1% SDV 5 ML VIAL SQ ONE (12:45)
[2019-01-27] MEDS ORDERED: HEPARIN 1,000 UNITS/ML 10ML VIAL (FOR RADIOLOGY& DIALYSIS ONLY) IV ONE (12:45)
[2019-01-27 15:59] VITALS: BP 124/59
--- NOTE | 2019-01-27 18:04 | CR ---
DATE OF CONSULTATION: 01/26/2019 CONSULTATION REPORT FOR: Dr. Mayra Newsome REASON FOR CONSULTATION: Management of end-stage renal disease on hemodialysis. HISTORY OF PRESENT ILLNESS: The patient is an 79-year-old female with a lengthy and significant past medical history including end-stage renal disease on hemodialysis on a Wednesday, Wednesday, Wednesday schedule, hypertension, dyslipidemia, diabetes, depression, coronary artery disease with history of myocardial infarction, history of transient ischemic attack (TIA), history of coronary artery bypass graft (CABG), basal cell carcinoma of the back and ear status post resection in 2018, gastroesophageal reflux disease (GERD), chronic obstructive pulmonary disease (COPD), and other comorbid conditions mentioned below. She was recently treated for influenza and pneumonia at an outside hospital. She has recently been having falls at home due to weakness. She has had trouble caring for herself at home. She went to the outpatient dialysis unit yesterday but was noted to be very weak and the staff at the unit also felt that she was confused and she had had recent bouts of vomiting. She was subsequently sent to the emergency room for further evaluation without being dialyzed. In the emergency room, the patient had a CT head which did not show any acute findings. She had a chest x-ray which showed pulmonary edema. She was requiring supplemental oxygen overnight and nephrology service was consulted for provision of hemodialysis. The patient is seen and examined this morning in the hemodialysis unit receiving her treatment. She complains of ongoing generalized weakness and fatigue. PAST MEDICAL HISTORY: 1. End-stage renal disease, on hemodialysis on Wednesday, Wednesday, Wednesday schedule. 2. Hypertension. 3. Dyslipidemia. 4. Diabetes. 5. Depression. 6. Coronary artery disease, status post coronary artery bypass graft (CABG). 7. History of myocardial infarction (VA). 8. History of transient ischemic attack (TIA). 9. Gastroesophageal reflux disease (GERD). 10. Chronic obstructive pulmonary disease (COPD). 11. Anemia of chronic renal failure. 12. Secondary hyperparathyroidism of renal origin. PAST SURGICAL HISTORY: 1. Coronary artery bypass graft (CABG). 2. Basal cell carcinoma of the back and ear. 3. Tonsillectomy. 4. Appendectomy. 5. Arteriovenous fistula (AVF) creation. SOCIAL HISTORY: She denies smoking, alcohol, drugs. FAMILY HISTORY: There is a positive family history of kidney disease, diabetes, and heart disease in the family. REVIEW OF SYSTEMS: CONSTITUTIONAL: She complains of generalized weakness and fatigue. She denies fevers. EYES: She denies changes in her vision or tearing. EARS, NOSE, AND THROAT: She denies dysphagia or tinnitus. She has a history of basal cell excision on the left ear. CARDIAC: She denies chest pain or palpitations. RESPIRATORY: She reports shortness of breath. She denies cough. GASTROINTESTINAL (GI): She reports nausea and vomiting. GENITOURINARY: She denies dysuria or hematuria. She still makes urine. She has a Jarvis catheter in place. MUSCULOSKELETAL: She reports repeat falls and generalized weakness. CENTRAL NERVOUS SYSTEM (HEALTH CLUB ATTENDANT): She denies seizures. She has a history of transient ischemic attack (TIA). SKIN: She reports history of skin cancer with excision. HEMATOLOGIC: She reports mild anemia. Denies easy bleeding. ENDOCRINE: She has a history of diabetes and secondary hyperparathyroidism. PSYCHIATRIC: She has a history of depression. All other review of systems is negative. VITAL SIGNS: Temperature 98.6, pulse 77, respiratory rate 18, blood pressure 141/62, saturating 99% on two liters nasal cannula. Intake yesterday was not recorded. Dialysis today removed 2 liters. GENERAL: The patient is seen in the hemodialysis unit receiving her treatment. She is an elderly-appearing female in no acute distress, recognizes me and greats my by name. Extraocular muscles are intact. The tongue is moist. The jugular veins are elevated. Heart sounds are regular, S1, S2. Lungs show crackles at the bases. She is without accessory muscle use nor tachypnea. The abdomen is soft and nontender to palpation. There are bowel sounds. The right upper extremity fistula is presently in use. Genitourinary shows Jarvis catheter with urine. NEUROLOGIC: She is oriented times three and at baseline mentation, interactive, conversational and cooperative with physical examination. LABORATORY DATA: Sodium 138, potassium 5.3, calcium 8.6, hemoglobin 11.0. IMAGING: Chest x-ray with CHF pattern. CT head with no acute findings. INPATIENT MEDICATIONS: - Tylenol as needed - albuterol every eight hours - aspirin 81 mg by mouth daily - atorvastatin 40 mg by mouth daily - calcitriol 0.5 mcg by mouth daily - carvedilol 6.25 mg by mouth daily - Plavix 75 mg by mouth daily - Cymbalta 30 mg by mouth daily - Lasix 120 mg by mouth twice a day - gabapentin 100 mg by mouth at bedtime - heparin 5000 units subcutaneously every 12 hours - insulin - Zofran as needed - Protonix 40 mg IV daily - sucralfate 1 gram by mouth every eight hours - tramadol 50 mg by mouth three times a day PROBLEMS: 1. End-stage renal disease, on hemodialysis on a Wednesday, Wednesday, Wednesday schedule. She missed her Wednesday dialysis as an outpatient as she was transferred to the emergency room for acute issues. She is hypervolemic on examination despite reported two-day history of nausea and vomiting. Subsequently, she was dialyzed with 2 liters of fluid removed. There is also mild hyperkalemia due to missed dialysis that will improve with dialysis. 2. Congestive heart failure (CHF) exacerbation. Chest x-ray noted. She was requiring increasing supplemental oxygen overnight. Primary team did treat her with Lasix. She does have some residual renal function. She was dialyzed today with 2 liters of fluid removed which she tolerated well and her oxygen requirements are subsequently decreased. Continue chronic home Lasix dosage. 3. Hypertension. Blood pressure are acceptable and the patient continues on carvedilol. 4. Anemia related to chronic renal failure. It is mild and no intervention is needed at present. 5. Deconditioning and debility with falls in this elderly patient with recent influenza and pneumonia with hospitalization. The patient is receiving physical therapy and will most likely need rehabilitation placement.
[2019-01-27] MEDS: GABAPENTIN 100 MG CAP PO SCH (21:35)
[2019-01-27 22:00] VITALS: BP 135/64
[2019-01-28] MEDS: ALBUTEROL SULFATE 2.5 MG/0.5 ML INH NEB SOLN NEB SCH ×3 (00:48→15:47)
[2019-01-28] MEDS: SUCRALFATE 1 GM TAB PO SCH ×3 (05:49→21:21)
[2019-01-28 06:00] VITALS: BP 140/58
[2019-01-28 06:00] LABS: BASO % 0.4 % (0.0-1.0); EOS # 0.1 10^3/uL (0.0-0.50); EOS % 1.7 % (0.0-3.0); HEMOGLOBIN 9.8 g/dl (12.0-15.5); LYMPH # 2.4 10^3/uL (1.5-4.5); LYMPH % 31.5 % (24.0-44.0); MEAN CORPUSCULAR HEMOGLOBIN 31.6 pg (27.0-33.0); MEAN CORPUSCULAR HGB CONC 30.6 g/dl (32.0-36.5); MEAN CORPUSCULAR VOLUME 103.2 fl (80.0-96.0); MONO # 1.2 10^3/uL (0.0-0.8); MONO % 15.9 % (0.0-5.0); NEUTROPHILS # 3.8 10^3/uL (1.8-7.7); NEUTROPHILS % 50.2 % (36.0-66.0); PLATELET COUNT, AUTOMATED 289 10^3/uL (150-450); WHITE BLOOD COUNT 7.5 10^3/uL (4.0-10.0)
[2019-01-28 06:21] LABS: CALCIUM LEVEL 8.6 MG/DL (8.8-10.2); CREATININE FOR GFR 3.96 MG/DL (0.55-1.30); GLOMERULAR FILTRATION RATE 11.6 (>32)
[2019-01-28] MEDS: BUDESONIDE 0.5 MG/2 ML INHALATION SUSPENSION INH SCH ×2 (07:19→20:00)
[2019-01-28] MEDS: HEPARIN SOD (PORCINE) 5000 UNITS/ML VIAL SC SCH ×2 (08:50→21:18)
[2019-01-28] MEDS: LEVEMIR (INSULIN DETEMIR) 1 UNITS/0.01ML SC SCH ×2 (08:50→21:21)
[2019-01-28] MEDS: DULoxetine 30 MG CAP (CYMBALTA) PO SCH (08:51)
[2019-01-28] MEDS: ASPIRIN 81 MG ENTERIC TAB PO SCH (08:51)
[2019-01-28] MEDS: CLOPIDOGREL 75 MG TAB PO SCH (08:51)
[2019-01-28] MEDS: HumaLOG INSULIN (NovoLOG) PER UNIT SC SCH ×4 (08:51→21:00)
[2019-01-28] MEDS: CALCITRIOL 0.25 MCG CAP (S0169) PO SCH (08:51)
[2019-01-28] MEDS: PANTOPRAZOLE 40MG INJ (PROTONIX) (C9113) IV SCH (08:51)
[2019-01-28] MEDS: ATORVASTATIN 20 MG TAB PO SCH (08:52)
[2019-01-28] MEDS: FUROSEMIDE 40 MG TAB PO SCH ×2 (08:52→21:19)
[2019-01-28] MEDS: CARVedilol 6.25 MG TAB PO SCH (08:53)
[2019-01-28] MEDS: traMADol 50 MG TAB PO SCH ×3 (08:53→21:20)
--- NOTE | 2019-01-28 11:08 | IPNPDOC ---
Subjective Date Seen The patient was seen on 01/28/19. Subjective Chief Complaint/HPI weakness, confusion and pain all over Events since last encounter Feels a little stronger today. her pain is well controlled with the current regimen and she is happy about that. Says that she can move more freely. No feve r or chills, no cough or phlegm , no nausea or vomiting or abdominal pain Objective Physical Examination General Exam: Positive: Alert, Cooperative, No Acute Distress Eye Exam: Positive: PERRLA, Conjunctiva & lids normal, EOMI; Negative: Sclera icteric ENT Exam: Positive: Atraumatic, Tongue Midline Neck Exam: Positive: Supple, JVD, Other (tender to palpation) Chest Exam: Positive: Clear to auscultation, Rales (crackles at both bases), Diminished Heart Exam: Positive: Rate Normal, Normal S1, Normal S2; Negative: Irregular Rhythm, Gallops, Murmurs, Rubs Abdomen Exam: Positive: Normal bowel sounds, Soft; Negative: Tenderness Extremity Exam: Positive: Edema (trace) Skin Exam: Positive: Other skin issue (bruising at the back of the neck and right side of the neck) Neuro Exam: Positive: Normal Speech Psych Exam: Positive: Mood NL, Memory Intact, Oriented x 3 Assessment /Plan Assessment 78-year-old female with past medical history of end-stage renal disease on hemodialysis , hypertension, hyperlipidemia, diabetes, depression, coronary artery disease status post [place], history of TIA, history of coronary artery bypass graft surgery, history of basal cell carcinoma on the back and ear status post resection in 2018, GERD, COPD was recently admitted at [facility] from 01/13/19 to 01/21/19 for influenza and pneumonia. Prior to that admission she had a fall at home due to weakness on her right side and struck her right shoulder, right lateral chest wall and right side of the abdomen and was down on the floor unable to get up and was found by neighbors. She lives in a senior housing apartment complex At [facility] she was advised to go to rehab after hospitalization but the patient refused thinking that she was strong enough to manage by herself in her apartment. So she was discharged home. Since coming home she has continued to be extremely weak with severe body aches with extreme difficulty in ambulation. She also has been having nausea and dry heaves for the past 2 days and diarrhea for 2 days which she says seems to have stopped this am. She went to her routine HD today and on the way she was constantly sick in her stomach threw up 3 times and after reaching the HD unit she was extremely weak and could not get up by herself she was not feeling herself . The staff at the unit felt that she had altered mental status so she was sent to the ED for evaluation. She did not have her HD today. In the ED She had CT of head and CT cervical spine and Xray of right shoulder. There was no fracture or dislocation. SHe had a CXR also which showed pulmonary edema. She has not been able to keep anything down for the past 2 days. She is being admitted for intractable nausea and vomiting , unable to tolerate po intake with extreme generalized weakness a nd unable to ambulate. Intractable nausea and vomiting Most probably acute gastritis/ duodenitis after recent hospitalization for pneumonia and FLU contributed to by severe pain . improved. Continue pantoprazole, zofran, sucralfate Back pain and neck pain CT neck reviewed shows spondylosis but no fracture or dislocation CT thoracic spine reviewed no acute fracture or dislocation shows diffuse degenerative changes. continue with tramadol and tylenol. Extreme weakness, physical deconditioning and difficulty in ambulation with recent fall soreness on the right side of the body persisting since the fall. due to recent influenza, pneumonia with hospitalization will consult PT will need rehab ESRD CXR suggestive of mild fluid overload maintenance HD as per Nephrology Diastolic CHF exacerbation in the background of ESRD. Echo shows grade 2 diastolic dysfunction and EF of 50% to 55%, No pulmonary hypertension noted, No pericardial effusion. oxygen supplementation as needed. Maintenance of fluid status by HD continue lasix home dosage. Diabetes with Neuropathy will continue lispro and levemir insulin continue cymbalta gabapentin. Hypertension continue coreg. CAD with h/o AMI and CABG int he past. no acute issues at this point. EKG with RBBB no signs of ongoing ischemia Hyperlipidemia will continue statins COPD will give nebs albuterol and budesonide. GERD will give pantoprazole and sucralfate. Plan/VTE VTE Prophylaxis Ordered?: Yes VS, I&O, 24H, Fishbone Vital Signs/I&O Vital Signs Date Time Temp Pulse Resp B/P (MAP) Pulse Ox O2 Delivery O2 Flow Rate FiO2 01/28/19 08:53 69 137/58 01/28/19 08:53 16 01/28/19 06:00 97.8 98 2.0 01/25/19 18:15 Nasal Cannula I&O- Last 24 Hours up to 6 AM 01/28/19 06:00 Intake Total 390 ml Output Total 1500 ml Balance -1110 ml Laboratory Data 24H LABS Laboratory Tests 2 01/27/19 11:37: Bedside Glucose (Misc Panel) 268H 01/27/19 16:24: Bedside Glucose (Misc Panel) 100 01/27/19 20:16: Bedside Glucose (Misc Panel) 186H 01/28/19 05:30: Immature Granulocyte % (Auto) 0.3, White Blood Count 7.5, Red Blood Count 3.10L, Hemoglobin 9.8L, Hematocrit 32.0L, Mean Corpuscular Volume 103.2H, Mean Corpuscular Hemoglobin 31.6, Mean Corpuscular Hemoglobin Concent 30.6L, Red Cell Distribution Width 13.2, Platelet Count 289, Neutrophils (%) (Auto) 50.2, Ly mphocytes (%) (Auto) 31.5, Monocytes (%) (Auto) 15.9H, Eosinophils (%) (Auto) 1.7, Basophils (%) (Auto) 0.4, Neutrophils # (Auto) 3.8, Lymphocytes # (Auto) 2.4, Monocytes # (Auto) 1.2H, Eosinophils # (Auto) 0.1, Basophils # (Auto) 0.0, Nucleated Red Blood Cells % (auto) 0.0, Anion Gap 4L, Glomerular Filtration Rate 11.6L, Blood Urea Nitrogen 22H, Creatinine 3.96H, Sodium Level 139, Potassium Level 4.0, Chloride Level 102, Carbon Dioxide Level 33H, Calcium Level 8.6L CBC/BMP Laboratory Tests 01/28/19 05:30 Red Blood Count 3.10 L, Mean Corpuscular Volume 103.2 H, Mean Corpuscular Hemoglobin 31.6, Mean Corpuscular Hemoglobin Concent 30.6 L, Red Cell Distribution Width 13.2, Neutrophils (%) (Auto) 50.2, Lymphocytes (%) (Auto) 31.5, Monocytes (%) (Auto) 15.9 H, Eosinophils (%) (Auto) 1.7, Basophils (%) (Auto) 0.4, Neutrophils # (Auto) 3.8, Lymphocytes # (Auto) 2.4, Monocytes # (Auto) 1.2 H, Eosinophils # (Auto) 0.1, Basophils # (Auto) 0.0, Calcium Level 8.6 L Microbiology Microbiology 01/25/19 Respiratory Virus Panel (PCR) ([facility]) - Final, Complete ADAM SOLITARIO MD Jan 28, 2019 11:08
[2019-01-28 14:00] VITALS: BP 130/58
[2019-01-28] MEDS ORDERED: DARBEPOETIN 100 MCG/0.5 ML *DIALYSIS* SYRINGE (J0882) IV SCH (20:00)
[2019-01-28] MEDS: GABAPENTIN 100 MG CAP PO SCH (21:20)
[2019-01-28 22:00] VITALS: BP 144/67
[2019-01-29] MEDS: SUCRALFATE 1 GM TAB PO SCH ×3 (05:48→21:34)
[2019-01-29] MEDS: ACETAMINOPHEN 500 MG TAB PO PRN (05:49)
[2019-01-29 06:00] VITALS: BP 153/67
[2019-01-29 07:00] LABS: BASO % 0.5 % (0.0-1.0); EOS # 0.2 10^3/uL (0.0-0.50); HEMATOCRIT 31.3 % (36.0-47.0); HEMOGLOBIN 9.6 g/dl (12.0-15.5); LYMPH # 2.4 10^3/uL (1.5-4.5); MEAN CORPUSCULAR HEMOGLOBIN 31.8 pg (27.0-33.0); MEAN CORPUSCULAR HGB CONC 30.7 g/dl (32.0-36.5); MEAN CORPUSCULAR VOLUME 103.6 fl (80.0-96.0); MONO # 1.1 10^3/uL (0.0-0.8); MONO % 15.2 % (0.0-5.0); NEUTROPHILS # 3.8 10^3/uL (1.8-7.7); NEUTROPHILS % 49.9 % (36.0-66.0); PLATELET COUNT, AUTOMATED 268 10^3/uL (150-450); RED BLOOD COUNT 3.02 10^6/uL (4.00-5.40); WHITE BLOOD COUNT 7.5 10^3/uL (4.0-10.0)
[2019-01-29 07:17] LABS: CALCIUM LEVEL 8.4 MG/DL (8.8-10.2); CREATININE FOR GFR 5.81 MG/DL (0.55-1.30); GLOMERULAR FILTRATION RATE 7.4 (>32); POTASSIUM SERUM 4.3 MEQ/L (3.5-5.1)
[2019-01-29] MEDS: FUROSEMIDE 40 MG TAB PO SCH ×2 (08:17→21:34)
[2019-01-29] MEDS: ATORVASTATIN 20 MG TAB PO SCH (08:17)
[2019-01-29] MEDS: DULoxetine 30 MG CAP (CYMBALTA) PO SCH (08:17)
[2019-01-29] MEDS: CLOPIDOGREL 75 MG TAB PO SCH (08:17)
[2019-01-29] MEDS: ASPIRIN 81 MG ENTERIC TAB PO SCH (08:17)
[2019-01-29] MEDS: CALCITRIOL 0.25 MCG CAP (S0169) PO SCH (08:17)
[2019-01-29] MEDS: CARVedilol 6.25 MG TAB PO SCH (08:17)
[2019-01-29] MEDS: PANTOPRAZOLE 40MG INJ (PROTONIX) (C9113) IV SCH (08:18)
[2019-01-29] MEDS: HEPARIN SOD (PORCINE) 5000 UNITS/ML VIAL SC SCH ×2 (08:18→21:34)
[2019-01-29] MEDS: traMADol 50 MG TAB PO SCH ×3 (08:18→21:35)
[2019-01-29] MEDS: LEVEMIR (INSULIN DETEMIR) 1 UNITS/0.01ML SC SCH ×2 (08:19→21:34)
[2019-01-29] MEDS: HumaLOG INSULIN (NovoLOG) PER UNIT SC SCH ×4 (08:19→21:00)
[2019-01-29] MEDS: BUDESONIDE 0.5 MG/2 ML INHALATION SUSPENSION INH SCH ×2 (08:46→20:53)
[2019-01-29] MEDS: ALBUTEROL SULFATE 2.5 MG/0.5 ML INH NEB SOLN NEB SCH ×4 (08:47→20:53)
[2019-01-29 09:15] VITALS: BP 147/56
--- NOTE | 2019-01-29 11:17 | IPN ---
DATE: 01/27/2019 SUBJECTIVE: Shanda is seen and examined this morning at the bedside and again later in the afternoon in the hemodialysis unit receiving her treatment. She reports she feels much better since coming into the hospital and also reports that her shortness of breath is improving. She continues to require supplemental oxygen, although this is being weaned. She is tolerating her dialysis treatments without issue. Temperature 97.6, pulse 63, respiratory rate 20, blood pressure 135/64, saturating 99% on 2 liters nasal cannula. Intake yesterday was 620. Dialysis yesterday removed 2 liters. Goal of fluid removal today with dialysis is 1.5 liters. Weight in the bed scale today is 72.3 kg, which is decreased from prior. GENERAL: Patient is seen in the hemodialysis unit receiving her treatment. Awake, alert, smiling, interactive, conversational, in no distress. Extraocular muscles are intact. Tongue is moist. Jugular veins are less elevated than prior. Heart sounds are regular. S1, S2. Lungs show diminished breath sounds at the bases, otherwise clear. Nasal cannula is in place. She is without accessory muscle use or tachypnea. Abdomen is soft and nontender to palpation. There are bowel sounds. The right upper extremity fistula is presently in use. Genitourinary shows the Jarvis catheter has been removed. NEUROLOGIC: She is oriented times three and at baseline mentation. Interactive, conversation and cooperative with physical examination. SKIN: Normal turgor and temperature. LABORATORY DATA: White count 9.5, hemoglobin 9.7. Sodium 138, potassium 4.2. INPATIENT MEDICATIONS: Reviewed by myself and no change from prior. PROBLEMS: 1. End-stage renal disease on hemodialysis on Wednesday, Wednesday, Wednesday schedule. She missed her Wednesday dialysis treatment as an outpatient. She was dialyze yesterday with 2.5 liters of fluid removed and I am dialyzing her again today to bring her back to her Wednesday, Wednesday, Wednesday schedule. Her hypervolemia is improving with [id number] dialysis and her supplemental oxygen is being weaned as well. 2. Congestive heart failure exacerbation. Patient is requiring supplemental oxygen, though this is being weaned. Two liters were removed with dialysis yesterday and another 1.5 liters are removed today. She continues on fluid restriction and chronic home Lasix. 3. Hypertension. Blood pressures are acceptable and the patient continues on carvedilol and blood pressure has also improved with hemodialysis and fluid removal. 4. Anemia related to chronic renal failure. It is mild. Hemoglobin is 9.7 today and we will continue with Aranesp. 5. Gastroesophageal reflux disease (GERD). Patient is receiving Protonix. Avoid lengthy use of sucralfate due to risk of aluminum accumulation in dialysis patient.
[2019-01-29] MEDS: ONDANSETRON 4MG/2ML VIAL (J2405) IV PRN (13:17)
--- NOTE | 2019-01-29 13:30 | IPNPDOC ---
Subjective Date Seen The patient was seen on 01/29/19. Subjective Chief Complaint/HPI weakness, nausea, vomiting, pain ,confusion Events since last encounter Says getting stronger every day . Her pain is well controlled. no nausea or vomiting. Her appetite is improving. Says that today she finished her whole tray. No fever or chills, no chest pain or sob. no abdominal pain or diarrhea. Objective Physical Examination General Exam: Positive: Alert, Cooperative, No Acute Distress Eye Exam: Positive: PERRLA, Conjunctiva & lids normal, EOMI; Negative: Sclera icteric ENT Exam: Positive: Atraumatic, Tongue Midline Neck Exam: Positive: Supple, JVD, Other (tender to palpation) Chest Exam: Positive: Clear to auscultation, Rales (crackles at both bases), Diminished Heart Exam: Positive: Rate Normal, Normal S1, Normal S2; Negative: Irregular Rhythm, Gallops, Murmurs, Rubs Abdomen Exam: Positive: Normal bowel sounds, Soft; Negative: Tenderness Extremity Exam: Positive: Edema (trace) Skin Exam: Positive: Other skin issue (bruising at the back of the neck and right side of the neck) Neuro Exam: Positive: Normal Speech Psych Exam: Positive: Mood NL, Memory Intact, Oriented x 3 Assessment /Plan Assessment 78-year-old female with past medical history of end-stage renal disease on hemodialysis , hypertension, hyperlipidemia, diabetes, depression, coronary artery disease status post GA, history of TIA, history of coronary artery bypass graft surgery, history of basal cell carcinoma on the back and ear status post resection in 2018, GERD, COPD was recently admitted at [facility] from 01/13/19 to 01/21/19 for influenza and pneumonia. Prior to that admission she had a fall at home due to weakness on her right side and struck her right shoulder, right lateral chest wall and right side of the abdomen and was down on the floor unable to get up and was found by neighbors. She lives in a senior housing apartment complex At [facility] she was advised to go to rehab after hospitalization but the patient refused thinking that she was strong enough to manage by herself in her apartment. So she was discharged home. Since coming home she has continued to be extremely weak with severe body aches with extreme difficulty in ambulation. She also has been having nausea and dry heaves for the past 2 days and diarrhea for 2 days which she says seems to have stopped this am. She went to her routine HD today and on the way she was constantly sick in her stomach threw up 3 times and after reaching the HD unit she was extremely weak and could not get up by herself she was not feeling herself . The staff at the unit felt that she had altered mental status so she was sent to the ED for evaluation. She did not have her HD today. In the ED She had CT of head and CT cervical spine and Xray of right shoulder. There was no fracture or dislocation. SHe had a CXR also which showed pulmonary edema. She has not been able to keep anything down for the past 2 days. She is being admitted for intractable nausea and vomiting , unable to tolerate po intake with extreme generalized weakness and unable to ambulate. Intractable nausea and vomiting Most probably acute gastritis/ duodenitis after recent hospitalization for pneumonia and FLU contributed to by severe pain . improved. Continue pantoprazole, zofran, sucralfate Back pain and neck pain CT neck reviewed shows spondylosis but no fracture or dislocation CT thoracic spine reviewed no acute fracture or dislocation shows diffuse degenerative changes. continue with tramadol and tylenol. Extreme weakness, physical deconditioning and difficulty in ambulation with recent fall soreness on the right side of the body persisting since the fall. due to recent influenza, pneumonia with hospitalization will consult PT will need rehab ESRD CXR suggestive of mild fluid overload maintenance HD as per Nephrology Diastolic CHF exacerbation in the background of ESRD. Echo shows grade 2 diastolic dysfunction and EF of 50% to 55%, No pulmonary hypertension noted, No pericardial effusion. oxygen supplementation as needed. Maintenance of fluid status by HD continue lasix home dosage. Diabetes with Neuropathy will continue lispro and levemir insulin continue cymbalta gabapentin. Hypertension continue coreg. CAD with h/o AMI and CABG int he past. no acute issues at this point. EKG with RBBB no signs of ongoing ischemia Hyperlipidemia will continue statins COPD will give nebs albuterol and budesonide. GERD will give pantoprazole and sucralfate. Plan/VTE VTE Prophylaxis Ordered?: Yes VS, I&O, 24H, Fishbone Vital Signs/I&O Vital Signs Date Time Temp Pulse Resp B/P (MAP) Pulse Ox O2 Delivery O2 Flow Rate FiO2 01/29/19 09:15 73 147/56 (86) 92 4/28/19 08:18 16 01/29/19 06:00 97.7 2.0 01/25/19 18:15 Nasal Cannula I&O- Last 24 Hours up to 6 AM 01/29/19 06:00 Intake Total 630 ml Output Total 100 ml Balance 530 ml Laboratory Data 24H LABS Laboratory Tests 2 01/28/19 16:30: Bedside Glucose (Misc Panel) 102 01/28/19 20:15: Bedside Glucose (Misc Panel) 122H 01/29/19 06:38: Immature Granulocyte % (Auto) 0.4, White Blood Count 7.5, Red Blood Count 3.02L, Hemoglobin 9.6L, Hematocrit 31.3L, Mean Corpuscular Volume 103.6H, Mean Corpuscular Hemoglobin 31.8, Mean Corpuscular Hemoglobin Concent 30.7L, Red Cell Distribution Width 13.2, Platelet Count 268, Neutrophils (%) (Auto) 49.9, Lymphocytes (%) (Auto) 32.0, Monocytes (%) (Auto) 15.2H, Eosinophils (%) (Auto) 2.0, Basophils (%) (Auto) 0.5, Neutrophils # (Auto) 3.8, Lymphocytes # (Auto) 2.4, Monocytes # (Auto) 1.1H, Eosinophils # (Auto) 0.2, Basophils # (Auto) 0.0, Nucleated Red Blood Cells % (auto) 0.0, Anion Gap 5L, Glomerular Filtration Rate 7.4L, Blood Urea Nitrogen 31H, Creatinine 5.81H, Sodium Level 138, Potassium Level 4.3, Chloride Level 102, Carbon Dioxide Level 31, Calcium Level 8.4L 01/29/19 12:10: Bedside Glucose (Misc Panel) 154H CBC/BMP Laboratory Tests 01/29/19 06:38 Red Blood Count 3.02 L, Mean Corpuscular Volume 103.6 H, Mean Corpuscular Hemoglobin 31.8, Mean Corpuscular Hemoglobin Concent 30.7 L, Red Cell Distribution Width 13.2, Neutrophils (%) (Auto) 49.9, Lymphocytes (%) (Auto) 32.0, Monocytes (%) (Auto) 15.2 H, Eosinophils (%) (Auto) 2.0, Basophils (%) (Auto) 0.5, Neutrophils # (Auto) 3.8, Lymphocytes # (Auto) 2.4, Monocytes # (Auto) 1.1 H, Eosinophils # (Auto) 0.2, Basophils # (Auto) 0.0, Calcium Level 8.4 L Microbiology Microbiology 01/25/19 Respiratory Virus Panel (PCR) ([facility]) - Final, Complete ADAM SOLITARIO MD Jan 29, 2019 13:30
[2019-01-29 14:00] VITALS: BP 150/69
--- NOTE | 2019-01-29 14:48 | IPN ---
DATE: 01/28/2019 SUBJECTIVE: The patient was seen and examined at the bedside this morning. She is afebrile, hemodynamically stable. She was dialyzed yesterday. She tolerated the hemodialysis procedure well. She denies any active complaints at this point. OBJECTIVE: VITAL SIGNS: Temperature is 97.8 degrees Fahrenheit, blood pressure 130/58, pulse is 62, respiratory rate 18, saturating 100% on nasal cannula at 2 liters. Intake and output: Urine output is not recorded today. Ultrafiltration with hemodialysis was 1.5 liter yesterday. Weight on the bed scale is 69.8. PHYSICAL EXAMINATION: GENERAL: The patient is awake, alert, oriented times three, sitting up in the bed in no apparent distress. HEAD AND NECK EXAM: Extraocular muscles intact. Pupils equally round and reactive to light. Mucous membranes are moist. Neck is supple. There is no jugular venous distention (JVD). CARDIOVASCULAR: S1, S2 regular rate. No murmur, rub or gallop. RESPIRATORY: Chest is clear to auscultation bilaterally. Bilateral equal air entry. No rales or rhonchi. ABDOMEN: Soft. Positive bowel sounds. Nontender. No organomegaly. MUSCULOSKELETAL: No clubbing or cyanosis. Pulses are 2+. CENTRAL NERVOUS SYSTEM (TEST ENGINE EVALUATOR): No focal deficits. Power is 5/5 in all extremities. LAB REVIEW: CBC showed WBC 7.5, hemoglobin 9.8, platelets are 289. BMP showed sodium 139, potassium is 4, chloride 102, bicarbonate 33, BUN 22, creatinine 3.9, calcium is 8.6. CURRENT INPATIENT MEDICATIONS: The patient's medications were all reviewed by me. There is no change in the medications today as compared with yesterday. ASSESSMENT/PLAN: 1. End-stage renal disease on hemodialysis. Patient's regular dialysis days are Wednesday, Wednesday and Wednesday. She was dialyzed yesterday. She tolerated the hemodialysis procedure well. Next hemodialysis will be after the weekend on Wednesday. 2. Acute decompensated diastolic congestive heart failure: The patient's volume status is significantly better. She was dialyzed 2 days in a row. Her breathing is significantly improved. Continue the Lasix. Further volume management will be done with dialysis. Next dialysis will be after the weekend on Wednesday. 3. Hypertension with end-stage renal disease: Blood pressure is acceptable. Continue current dose of Coreg 6.25 mg by mouth twice a day. 4. Secondary hyperparathyroidism: Continue current dose of calcitriol 0.5 mcg by mouth daily. 5. Anemia in end-stage renal disease: Hemoglobin is 9.8. The patient is being started on Aranesp with hemodialysis. Rest of the anemia management will be done as outpatient.
[2019-01-29] MEDS: GABAPENTIN 100 MG CAP PO SCH (21:34)
[2019-01-29 22:00] VITALS: BP 151/67
[2019-01-30 06:00] VITALS: BP 134/65
[2019-01-30] MEDS: PANTOPRAZOLE 40MG INJ (PROTONIX) (C9113) IV SCH (06:08)
[2019-01-30] MEDS: SUCRALFATE 1 GM TAB PO SCH ×3 (06:09→20:29)
[2019-01-30] MEDS: DULoxetine 30 MG CAP (CYMBALTA) PO SCH (06:09)
[2019-01-30] MEDS: HEPARIN SOD (PORCINE) 5000 UNITS/ML VIAL SC SCH ×2 (06:09→20:27)
[2019-01-30] MEDS: FUROSEMIDE 40 MG TAB PO SCH ×2 (06:09→20:29)
[2019-01-30] MEDS: CLOPIDOGREL 75 MG TAB PO SCH (06:10)
[2019-01-30] MEDS: ATORVASTATIN 20 MG TAB PO SCH (06:10)
[2019-01-30] MEDS: CALCITRIOL 0.25 MCG CAP (S0169) PO SCH (06:10)
[2019-01-30] MEDS: ASPIRIN 81 MG ENTERIC TAB PO SCH (06:10)
[2019-01-30] MEDS: traMADol 50 MG TAB PO SCH ×2 (06:11→20:28)
[2019-01-30] MEDS: CARVedilol 6.25 MG TAB PO SCH (06:13)
[2019-01-30] MEDS: BUDESONIDE 0.5 MG/2 ML INHALATION SUSPENSION INH SCH ×2 (07:40→20:00)
[2019-01-30] MEDS: ALBUTEROL SULFATE 2.5 MG/0.5 ML INH NEB SOLN NEB SCH ×2 (07:40→16:00)
[2019-01-30] MEDS: LEVEMIR (INSULIN DETEMIR) 1 UNITS/0.01ML SC SCH ×2 (07:46→20:27)
[2019-01-30] MEDS: HumaLOG INSULIN (NovoLOG) PER UNIT SC SCH ×4 (07:46→20:21)
[2019-01-30] MEDS: ACETAMINOPHEN 500 MG TAB PO PRN ×2 (08:12→16:59)
[2019-01-30 09:06] LABS: BASO % 0.2 % (0.0-1.0); EOS # 0.2 10^3/uL (0.0-0.50); EOS % 1.8 % (0.0-3.0); HEMOGLOBIN 9.8 g/dl (12.0-15.5); LYMPH # 1.7 10^3/uL (1.5-4.5); LYMPH % 20.3 % (24.0-44.0); MEAN CORPUSCULAR HEMOGLOBIN 32.8 pg (27.0-33.0); MEAN CORPUSCULAR HGB CONC 31.6 g/dl (32.0-36.5); MEAN CORPUSCULAR VOLUME 103.7 fl (80.0-96.0); MONO # 0.7 10^3/uL (0.0-0.8); NEUTROPHILS # 5.5 10^3/uL (1.8-7.7); NEUTROPHILS % 68.2 % (36.0-66.0); PLATELET COUNT, AUTOMATED 292 10^3/uL (150-450); RED BLOOD COUNT 2.99 10^6/uL (4.00-5.40); WHITE BLOOD COUNT 8.1 10^3/uL (4.0-10.0)
[2019-01-30 09:34] LABS: CALCIUM LEVEL 8.6 MG/DL (8.8-10.2); CREATININE FOR GFR 7.1 MG/DL (0.55-1.30); GLOMERULAR FILTRATION RATE 5.9 (>32); POTASSIUM SERUM 4.7 MEQ/L (3.5-5.1)
--- NOTE | 2019-01-30 11:44 | IPNPDOC ---
Date Seen The patient was seen on 01/30/19. Progress Note SUBJECTIVE: Patient was seen and examined this morning. She has no complaints today. She denies any diarrhea, nausea, or vomiting. She does state that she continues to be weak and tired although she admits that she is continuing to gain her strength back. She currently denies any diarrhea, nausea, or vomiting. OBJECTIVE PHYSICAL EXAMINATION: VITAL SIGNS: Please see below. GENERAL: Awake, alert, and oriented. She appears in no acute distress. Sitting comfortably on bed. HEENT: Atraumatic normocephalic. eyes are nonicteric. trachea is midline CARDIOVASCULAR: Normal S1, S2. Regular rate and rhythm. No clicks rubs, or murmurs appreciated RESPIRATORY: Clear vesicular lung sounds bilaterally. Good respiratory effort. No wheezes, rhonci, or rales ABDOMINAL: Soft, nondistended. Nontender to palpation in all 4 quadrants. No rebound tenderness or guarding. Positive bowel sounds throughout EXTREMITIES: No edema. 2+ radial and posterior tibial pulses bilaterally NEUROLOGICAL: No focal neurological deficits PSYCHOLOGICAL: Mood and affect appear normal LABORATORY DATA, IMAGING STUDIES, MICROBIOLOGY: Please see below. Echocardiogram: REFERRING PHYSICIAN: Dr. Newsome INDICATION: Congestive heart failure. HEIGHT: 168 cm WEIGHT: 70 kg DIMENSIONS: IVS: 1.4 cm LV: 5.2 cm LVPW: 1.1 cm LA: 5.1 cm Aorta: 2.9 cm IVC: 2.0 cm Left atrial volume index: 42 Mitral E wave velocity: 121 A wave: 114 E prime septal: 3.7 E prime lateral: 4.6 FINDINGS: The study is of acceptable technical quality. The patient is in sinus rhythm. Left ventricle is normal size and overall normal systolic function. I estimate left ventricular ejection fraction (LVEF) around 50-55%. Right ventricle does not appear grossly enlarged. Left atrium is severely enlarged. Right atrium appears at least mildly enlarged. Aortic valve has three cusps. It is sclerotic, but mobility of cusp is preserved. There are very prominent mitral annular calcifications, especially at the base of posterior mitral leaflet. There is somewhat restricted motion of the leaflet and by 2-D imaging I assume mild mitral stenosis. Tricuspid valve appears normal. Pulmonic valve was not visualized. No pericardial effusion is noted. Inferior vena cava is on upper limits of normal size, but completely collapses with respiration indicative of likely normal central venous pressure. Aortic root and aortic arch appear normal. Abdominal aorta was not seen. Doppler interrogation of aortic valve reveals no stenosis and mild insufficiency. There is also mild mitral insufficiency. There is mild mitral stenosis with mean gradient across the valve of only 3 mmHg. There is trace tricuspid insufficiency. Calculated pulmonary artery pressure was within normal limits. Mitral inflow pattern and tissue Doppler imaging of mitral annulus revealed grade 2 diastolic dysfunction. CONCLUSIONS: 1. Study is of acceptable technical quality. 2. Normal LV size with grossly preserved LV systolic function and grade 2 diastolic dysfunction. Mild left ventricular hypertrophy (LVH). 3. Aortic sclerosis resulting in no significant stenosis and mild insufficiency. 4. Prominent degenerative abnormalities of mitral valve resulting in mild mitral stenosis and mild mitral insufficiency. 5. Likely normal central venous pressure and now normal pulmonary artery pressure. COMMENT: Subacute bacterial endocarditis (SBE) prophylaxis is not recommended. DD: Jose Owens MD 01/27/19710 DT: JUANPABLO 01/27/19716 DS: MIGDALIA 01/[birth year]/191933 <Electronically signed by Jose Owens MD> 01/29/191933 DVT prophylaxis ordered?: YES ASSESSMENT AND PLAN: Patient is an 78 year old female with a past medical history significant for ESRD on hemodialysis, hyperlipidemia, diabetes, CAD s/p MN, history of TIA, GERD, COPD who was recently admitted at [facility] from 01/13/19 to 01/21/19 for influenza and pneumonia. Prior to that admission she had a fall at home due to weakness on her right side and struck her right shoulder, right lateral chest wall and right side of the abdomen and was down on the floor unable to get up and was found by neighbors. She lives in a senior housing apartment complex At [facility] she was advised to go to rehab after hospitalization but the patient refused thinking that she was strong enough to manage by herself in her apartment. So she was discharged home. Since coming home she has continued to be extremely weak with severe body aches with extreme difficulty in ambulation. She also has been having nausea and dry heaves for the past 2 days and diarrhea for 2 days which she says seems to have stopped this am. She went to her routine HD today and on the way she was constantly sick in her stomach threw up 3 times and after reaching the HD unit she was extremely weak and could not get up by herself she was not feeling herself . The staff at the unit felt that she had altered mental status so she was sent to the ED for evaluation. She did not have her HD today. In the ED She had CT of head and CT cervical spine and Xray of right shoulder. There was no fracture or dislocation. She had a CXR also which showed pulmonary edema. She has not been able to keep anything down for the past 2 days. She is being admitted for intractable nausea and vomiting , unable to tolerate po intake with extreme generalized weakness and unable to ambulate. PROBLEMS: 1. Intractable Nausea and vomiting -Currently resolved. Likely secondary to acute gastritis after her recent hospitalization for pneumonia and influenza -Patient will be continued on Protonix, Zofran, and Carafate 2. Generalized weakness/deconditioning -Patient has continued weakness and difficulty with ambulation. She has had a recent fall and continues to have soreness on the right side of her body which is improving. Her weakness and deconditioning are likely secondary to her recent influenza and pneumonia -Continue with PT -Likely discharge to [facility] 3. ESRD on Hemodialysis -Patient presented with Chest x-ray suggestive of mild fluid overload. -Receiving maintenance hemodialysis. -Patient will receive dialysis today and likely be discharged to ARU tomorrow 4. Diastolic CHF Exacerbation -Patient received ECHO on 01/26 as shown above. EF of 50-55%. -Currently receiving Hemodialysis for fluid management -Continued on home lasix 5. Diabetic Nephrology -Continue Lispro and Levemir -Continue cymbalta and gabapentin 6. HTN -Continue Coreg 7. CAD w h/o MN and CABG -Currently stable 8. Hyperlipidemia -Continue statin 9. COPD -Duonebs -Pulmicort 10. GERD -Protinix and carafate 11. DVT prophylaxis -Heparin SQ DISPOSITION: Discharge to [facility] A-FIB/[facility] A-FIB History Current/History of A-Fib/PAF?: No VS, I&O, 24H, Fishbone Vital Signs/I&O Vital Signs Date Time Temp Pulse Resp B/P (MAP) Pulse Ox O2 Delivery O2 Flow Rate FiO2 01/30/19 06:13 72 134/65 01/30/19 06:11 16 01/30/19 06:00 97.8 93 01/29/19 06:00 2.0 01/25/19 18:15 Nasal Cannula I&O- Last 24 Hours up to 6 AM 01/30/19 06:00 Intake Total 600 ml Output Total 200 ml Balance 400 ml Laboratory Data 24H LABS Laboratory Tests 2 01/29/19 12:10: Bedside Glucose (Misc Panel) 154H 01/29/19 16:34: Bedside Glucose (Misc Panel) 119H 01/29/19 20:30: Bedside Glucose (Misc Panel) 143H 01/30/19 07:27: Bedside Glucose (Misc Panel) 177H 01/30/19 08:55: Immature Granulocyte % (Auto) 0.5, White Blood Count 8.1, Red Blood Count 2.99L, Hemoglobin 9.8L, Hematocrit 31.0L, Mean Corpuscular Volume 103.7H, Mean Corpuscular Hemoglobin 32.8, Mean Corpuscular Hemoglobin Concent 31.6L, Red Cell Distribution Width 13.3, Platelet Count 292, Neutrophils (%) (Auto) 68.2H, Lymphocytes (%) (Auto) 20.3L, Monocytes (%) (Auto) 9.0H, Eosinophils (%) (Auto) 1.8, Basophils (%) (Auto) 0.2, Neutrophils # (Auto) 5.5, Lymphocytes # (Auto) 1.7, Monocytes # (Auto) 0.7, Eosinophils # (Auto) 0.2, Basophils # (Auto) 0.0, Nucleated Red Blood Cells % (auto) 0.0, Anion Gap 10, Glomerular Filtration Rate 5.9L, Blood Urea Nitrogen 44H, Creatinine 7.10H, Sodium Level 138, Potassium Level 4.7, Chloride Level 102, Carbon Dioxide Level 26, Calcium Level 8.6L CBC/BMP Laboratory Tests 01/30/19 08:55 Red Blood Count 2.99 L, Mean Corpuscular Volume 103.7 H, Mean Corpuscular Hemoglobin 32.8, Mean Corpuscular Hemoglobin Concent 31.6 L, Red Cell Distribution Width 13.3, Neutrophils (%) (Auto) 68.2 H, Lymphocytes (%) (Auto) 20.3 L, Monocytes (%) (Auto) 9.0 H, Eosinophils (%) (Auto) 1.8, Basophils (%) (Auto) 0.2, Neutrophils # (Auto) 5.5, Lymphocytes # (Auto) 1.7, Monocytes # (Auto) 0.7, Eosinophils # (Auto) 0.2, Basophils # (Auto) 0.0, Calcium Level 8.6 L Microbiology Microbiology 01/25/19 Respiratory Virus Panel (PCR) ([facility]) - Final, Complete GME ATTESTATION GME ATTESTATION My faculty preceptor for this patient encounter was physically present during the encounter and was fully available. All aspects of the patient interview, examination, medical decision making process, and medical care plan development were reviewed and approved by the faculty preceptor. The faculty preceptor is aware and concurs with the plan as stated in the body of this note and will attest to such by his/her cosignature. ATTENDING NOTE I have reviewed the residents note and have personally examined the patient. I agree with the Residents physical examination and assessment and plan. YESSICA LANGSTON DO Jan 30, 2019 10:54 ADAM NEWSOME MD February 04, 2019 17:22
[2019-01-30 13:25] VITALS: BP 152/70
[2019-01-30] MEDS: GABAPENTIN 100 MG CAP PO SCH (20:29)
[2019-01-30 22:00] VITALS: BP 137/65
[2019-01-30 22:58] VITALS: O2SAT 95
[2019-01-31] MEDS: SUCRALFATE 1 GM TAB PO SCH ×3 (04:52→22:09)
[2019-01-31 05:55] LABS: BASO % 0.4 % (0.0-1.0); EOS # 0.2 10^3/uL (0.0-0.50); EOS % 2.4 % (0.0-3.0); HEMATOCRIT 32.5 % (36.0-47.0); HEMOGLOBIN 10.1 g/dl (12.0-15.5); LYMPH # 2.2 10^3/uL (1.5-4.5); LYMPH % 27.9 % (24.0-44.0); MEAN CORPUSCULAR HEMOGLOBIN 31.7 pg (27.0-33.0); MEAN CORPUSCULAR HGB CONC 31.1 g/dl (32.0-36.5); MEAN CORPUSCULAR VOLUME 101.9 fl (80.0-96.0); MONO # 1.1 10^3/uL (0.0-0.8); MONO % 14.2 % (0.0-5.0); NEUTROPHILS # 4.3 10^3/uL (1.8-7.7); NEUTROPHILS % 54.8 % (36.0-66.0); PLATELET COUNT, AUTOMATED 300 10^3/uL (150-450); RED BLOOD COUNT 3.19 10^6/uL (4.00-5.40); WHITE BLOOD COUNT 7.9 10^3/uL (4.0-10.0)
[2019-01-31 06:00] VITALS: BP 177/77
[2019-01-31 06:18] LABS: CALCIUM LEVEL 8.7 MG/DL (8.8-10.2); CREATININE FOR GFR 4.21 MG/DL (0.55-1.30); GLOMERULAR FILTRATION RATE 10.8 (>32); POTASSIUM SERUM 4.5 MEQ/L (3.5-5.1)
[2019-01-31] MEDS: BUDESONIDE 0.5 MG/2 ML INHALATION SUSPENSION INH SCH ×2 (07:48→20:05)
[2019-01-31] MEDS: ALBUTEROL SULFATE 2.5 MG/0.5 ML INH NEB SOLN NEB SCH ×4 (07:48→20:06)
--- NOTE | 2019-01-31 07:48 | IPN ---
DATE OF VISIT: 01/29/2019 SUBJECTIVE: The patient was seen, examined at the bedside today morning. She is afebrile, hemodynamically stable. Appetite is better and she denies any more nausea or vomiting. OBJECTIVE: VITAL SIGNS: Temperature is 97.9 degrees Fahrenheit, blood pressure 150/69, pulse is 62, respiratory rate 16, saturating 93% on room air. Intake and output: Urine output recorded as 200 mL, weight in the bed scale is 71 kg. PHYSICAL EXAMINATION: GENERAL: The patient is awake, alert, oriented times three, sitting up in the bed in no apparent distress. HEENT/NECK: Extraocular muscles intact. Pupils equally round and reactive to light. Mucous membranes are moist. Neck is supple. There is no jugular venous distention (JVD). CARDIOVASCULAR: S1-S2 regular rate. No murmur. RESPIRATORY: Chest is clear to auscultation bilaterally. Bilateral equal air entry. No rales or rhonchi. ABDOMEN: Soft. Positive bowel sounds. Nontender. No organomegaly. MUSCULOSKELETAL: No clubbing or cyanosis. Pulses are 2+. CENTRAL NERVOUS SYSTEM (BELT MOLDER): No focal deficit. Power is 5/5 in all extremities. LABORATORY DATA: CBC showed a WBC 7.5, hemoglobin 9.6, platelets of 268. Basic metabolic profile (BMP) showed sodium 138, potassium 4.3. Chloride 102, bicarbonate 31, BUN 31, creatinine is 5.8. CURRENT INPATIENT MEDICATIONS: The patient's medications were all reviewed by me. There is no change in the medications today as compared with yesterday. ASSESSMENT/PLAN: 1. End-stage renal disease on hemodialysis. The patient's regular dialysis days are Wednesday, Wednesday, Wednesday. She will be dialyzed tomorrow morning according to her regular schedule. 2. Acute decompensated diastolic congestive heart failure. The patient's volume status is significantly better. Further fluid removal be done tomorrow morning. Continue current dose of Lasix. 3. Hypertension with hypertensive heart disease and end-stage renal disease. Continue current dose of Coreg 6.25 mg by mouth twice a day. 4. Anemia and end-stage renal disease. Hemoglobin is 9.6. The patient has been started on Aranesp with hemodialysis.
[2019-01-31] MEDS: PANTOPRAZOLE 40MG INJ (PROTONIX) (C9113) IV SCH (08:38)
[2019-01-31] MEDS: HEPARIN SOD (PORCINE) 5000 UNITS/ML VIAL SC SCH ×2 (08:39→22:08)
[2019-01-31] MEDS: LEVEMIR (INSULIN DETEMIR) 1 UNITS/0.01ML SC SCH ×2 (08:39→22:09)
[2019-01-31] MEDS: DULoxetine 30 MG CAP (CYMBALTA) PO SCH (08:40)
[2019-01-31] MEDS: CALCITRIOL 0.25 MCG CAP (S0169) PO SCH (08:40)
[2019-01-31] MEDS: FUROSEMIDE 40 MG TAB PO SCH ×2 (08:40→22:11)
[2019-01-31] MEDS: HumaLOG INSULIN (NovoLOG) PER UNIT SC SCH ×4 (08:40→21:00)
[2019-01-31] MEDS: ASPIRIN 81 MG ENTERIC TAB PO SCH (08:41)
[2019-01-31] MEDS: traMADol 50 MG TAB PO SCH ×2 (08:41→22:10)
[2019-01-31] MEDS: ATORVASTATIN 20 MG TAB PO SCH (08:41)
[2019-01-31] MEDS: CLOPIDOGREL 75 MG TAB PO SCH (08:41)
[2019-01-31] MEDS: CARVedilol 6.25 MG TAB PO SCH (08:41)
[2019-01-31 09:00] VITALS: O2SAT 96
--- NOTE | 2019-01-31 10:56 | IPN ---
DATE OF VISIT: 01/30/2019 SUBJECTIVE: The patient was seen and examined at the bedside today morning during hemodialysis procedure. She is alert but weak and drowsy today, but otherwise she is tolerating the hemodialysis procedure well. She denies any active complaints at this point. OBJECTIVE: VITAL SIGNS: Temperature is 97.8 degrees Fahrenheit, blood pressure 134/65, pulse is 72, respiratory rate 16, saturating 92% on room air. Intake and output: Urine output recorded as 100 mL, weight in the bed scale is 71.2 kilograms. PHYSICAL EXAMINATION: GENERAL: The patient is awake, alert, oriented times. She is laying in bed getting hemodialysis done. HEAD/NECK: Extraocular muscles intact. Pupils equally round and reactive to light. Mucous membranes are moist. Neck is supple. There is no jugular venous distention (JVD). CARDIOVASCULAR: S1, S2, regular rate. No edema of the bilateral lower extremities. RESPIRATORY: Chest is clear to auscultation bilaterally. Bilateral equal air entry. No rales or rhonchi. ABDOMEN: Soft. Positive bowel sounds. Nontender. No organomegaly. MUSCULOSKELETAL: No clubbing or cyanosis. Pulses of 2+. CENTRAL NERVOUS SYSTEM (SEWING MACHINE ASSEMBLER): No focal deficit. She moves all extremities. LABORATORY DATA: CBC showed a WBC of 8.1, hemoglobin 9.8, platelets are 292. Basic Metabolic Profile (BMP) showed sodium 138, potassium 4.7, chloride 102, bicarb 26, BUN 44, creatinine 7.1. CURRENT INPATIENT MEDICATIONS: The patient's medications were all reviewed by me. - tramadol dose has been decreased to 50 mg by mouth twice a day. No other change in the medications today as compared with yesterday. ASSESSMENT/PLAN: 1. End-stage renal disease on hemodialysis. The patient's regular dialysis days are Wednesday, Wednesday, Wednesday. She is being dialyzed according to her regular schedule. She is tolerating the hemodialysis procedure well. 2. Diastolic congestive heart failure. The patient's volume status is optimized. Continue the current dose of diuretics. Ultrafiltration is being done during dialysis today. 3. Hypertension with end-stage renal disease. Continue current dose of carvedilol . Blood pressure levels are acceptable. 4. Anemia and end-stage renal disease. Hemoglobin level is 9.8 which is acceptable. She is currently getting Aranesp with hemodialysis. 5. Drowsiness. This is most likely the side effect of her tramadol which has already been reduced by the primary team. Electrolytes are within the acceptable range.
[2019-01-31] MEDS: ANALGESIC BALM CRM 120 GM TOP SCH ×2 (12:00→22:18)
--- NOTE | 2019-01-31 13:33 | IPNPDOC ---
Date Seen The patient was seen on 01/31/19. Progress Note SUBJECTIVE: Patient was seen and examined this morning. She currently denies any complaints. She states that she feels as if she is gaining her strength back. There were no adverse events reported overnight OBJECTIVE PHYSICAL EXAMINATION: VITAL SIGNS: Please see below. GENERAL: Awake, alert and oriented to person and place. She appears in no acute distress. She is sitting comfortably in chair HEENT: Atraumatic normocephalic. Trachea is midline. Mucous membranes are pink and moist. Eyes are nonicteric CARDIOVASCULAR: Normal S1, S2. Regular rate and rhythm. No clicks rubs, or murmurs. RESPIRATORY: clear vesicular breath sounds bilaterally. Good respiratory effort. No wheezes, rhonci, or rales ABDOMINAL: Soft, nondistended. Nontender to palpation of all 4 quadrants. No rebound tenderness or guarding. Positive bowel sounds throughout EXTREMITIES: No edema. 2+ radial and posterior tibial pulses bilaterally NEUROLOGICAL: No focal neurological deficits PSYCHOLOGICAL: Mood and affect appear normal LABORATORY DATA, IMAGING STUDIES, MICROBIOLOGY: Please see below. Echocardiogram: Echocardiogram: REFERRING PHYSICIAN: Dr. Newsome INDICATION: Congestive heart failure. HEIGHT: 168 cm WEIGHT: 70 kg DIMENSIONS: IVS: 1.4 cm LV: 5.2 cm LVPW: 1.1 cm LA: 5.1 cm Aorta: 2.9 cm IVC: 2.0 cm Left atrial volume index: 42 Mitral E wave velocity: 121 A wave: 114 E prime septal: 3.7 E prime lateral: 4.6 FINDINGS: The study is of acceptable technical quality. The patient is in sinus rhythm. Left ventricle is normal size and overall normal systolic function. I estimate left ventricular ejection fraction (LVEF) around 50-55%. Right ventricle does not appear grossly enlarged. Left atrium is severely enlarged. Right atrium appears at least mildly enlarged. Aortic valve has three cusps. It is sclerotic, but mobility of cusp is preserved. There are very prominent mitral annular calcifications, especially at the base of posterior mitral leaflet. There is somewhat restricted motion of the leaflet and by 2-D imaging I assume mild mitral stenosis. Tricuspid valve appears normal. Pulmonic valve was not visualized. No pericardial effusion is noted. Inferior vena cava is on upper limits of normal size, but completely collapses with respiration indicative of likely normal central venous pressure. Aortic root and aortic arch appear normal. Abdominal aorta was not seen. Doppler interrogation of aortic valve reveals no stenosis and mild insufficiency. There is also mild mitral insufficiency. There is mild mitral stenosis with mean gradient across the valve of only 3 mmHg. There is trace tricuspid insufficiency. Calculated pulmonary artery pressure was within normal limits. Mitral inflow pattern and tissue Doppler imaging of mitral annulus revealed grade 2 diastolic dysfunction. CONCLUSIONS: 1. Study is of acceptable technical quality. 2. Normal LV size with grossly preserved LV systolic function and grade 2 diastolic dysfunction. Mild left ventricular hypertrophy (LVH). 3. Aortic sclerosis resulting in no significant stenosis and mild insufficiency. 4. Prominent degenerative abnormalities of mitral valve resulting in mild mitral stenosis and mild mitral insufficiency. 5. Likely normal central venous pressure and now normal pulmonary artery pressure. COMMENT: Subacute bacterial endocarditis (SBE) prophylaxis is not recommended. DD: Jose Owens MD 01/27/19710 DT: JUANPABLO 01/27/19716 DS: MIGDALIA [birth year]191935 <Electronically signed by Jose Owens MD> 01/29/191933 DVT prophylaxis ordered?: YES ASSESSMENT AND PLAN: Patient is an 78 year old female with a past medical history significant for ESRD on hemodialysis, hyperlipidemia, diabetes, CAD s/p MN, history of TIA, GERD, COPD who was recently admitted at [facility] from 01/13/19 to 01/21/19 for influenza and pneumonia. Prior to that admission she had a fall at home due to weakness on her right side and struck her right shoulder, right lateral chest wall and right side of the abdomen and was down on the floor unable to get up and was found by neighbors. She lives in a senior housing apartment complex At [facility] she was advised to go to rehab after hospitalization but the patient refused thinking that she was strong enough to manage by herself in her apartment. So she was discharged home. Since coming home she has continued to be extremely weak with severe body aches with extreme difficulty in ambulation. She also has been having nausea and dry heaves for the past 2 days and diarrhea for 2 days which she says seems to have stopped this am. She went to her routine HD today and on the way she was constantly sick in her stomach threw up 3 times and after reaching the HD unit she was extremely weak and could not get up by herself she was not feeling herself . The staff at the unit felt that she had altered mental status so she was sent to the ED for evaluation. She did not have her HD today. In the ED She had CT of head and CT cervical spine and Xray of right shoulder. There was no fracture or dislocation. She had a CXR also which showed pulmonary edema. She has not been able to keep anything down for the past 2 days. She is being admitted for intractable nausea and vomiting , unable to tolerate po intake with extreme generalized weakness and unable to ambulate. PROBLEMS: 1. Intractable Nausea and vomiting -Currently resolved. Likely secondary to acute gastritis after her recent hospitalization for pneumonia and influenza -Patient will be continued on Protonix, Zofran, and Carafate -Resolved 2. Generalized weakness/deconditioning -Patient has continued weakness and difficulty with ambulation. She has had a recent fall and continues to have soreness on the right side of her body which is improving. Her weakness and deconditioning are likely secondary to her recent influenza and pneumonia -Continue with PT -Likely discharge to [facility] 3. ESRD on Hemodialysis -Patient presented with Chest x-ray suggestive of mild fluid overload. -Receiving maintenance hemodialysis. -Patient will receive dialysis today and likely be discharged to [facility]U tomorrow 4. Diastolic CHF Exacerbation -Patient received ECHO on 01/26 as shown above. EF of 50-55%. -Currently receiving Hemodialysis for fluid management -Continued on home lasix 5. Diabetic Nephrology -Continue Lispro and Levemir -Continue cymbalta and gabapentin 6. HTN -Continue Coreg 7. CAD w h/o MN and CABG -Currently stable 8. Hyperlipidemia -Continue statin 9. COPD -Duonebs -Pulmicort 10. GERD -Protinix and carafate 11. DVT prophylaxis -Heparin SQ DISPOSITION: Patient will likely be discharge to [facility] on 02/02/19 A-FIB/CHADSVASC A-FIB History Current/History of A-Fib/PAF?: No VS, I&O, 24H, Fishbone Vital Signs/I&O Vital Signs Date Time Temp Pulse Resp B/P (MAP) Pulse Ox O2 Delivery O2 Flow Rate FiO2 01/31/19 09:00 96 Room Air 01/31/19 08:41 18 01/31/19 08:41 70 177/77 01/31/19 06:00 97.8 01/29/19 06:00 2.0 I&O- Last 24 Hours up to 6 AM 01/31/19 06:00 Intake Total 480 ml Output Total 1500 ml Balance -1020 ml Laboratory Data 24H LABS Laboratory Tests 2 01/30/19 16:28: Bedside Glucose (Misc Panel) 114H 01/30/19 20:21: Bedside Glucose (Misc Panel) 228H 01/31/19 05:44: Immature Granulocyte % (Auto) 0.3, White Blood Count 7.9, Red Blood Count 3.19L, Hemoglobin 10.1L, Hematocrit 32.5L, Mean Corpuscular Volume 101.9H, Mean Corpuscular Hemoglobin 31.7, Mean Corpuscular Hemoglobin Concent 31.1L, Red Cell Distribution Width 13.4, Platelet Count 300, Neutrophils (%) (Auto) 54.8, Lymphocytes (%) (Auto) 27.9, Monocytes (%) (Auto) 14.2H, Eosinophils (%) (Auto) 2.4, Basophils (%) (Auto) 0.4, Neutrophils # (Auto) 4.3, Lymphocytes # (Auto) 2.2, Monocytes # (Auto) 1.1H, Eosinophils # (Auto) 0.2, Basophils # (Auto) 0.0, Nucleated Red Blood Cells % (auto) 0.0, Anion Gap 8, Glomerular Filtration Rate 10.8L, Blood Urea Nitrogen 21#H, Creatinine 4.21H, Sodium Level 135L, Potassium Level 4.5, Chloride Level 101, Carbon Dioxide Level 26, Calcium Level 8.7L 01/31/19 05:52: Bedside Glucose (Misc Panel) 110 01/31/19 11:21: Bedside Glucose (Misc Panel) 153H CBC/BMP Laboratory Tests 01/31/19 05:44 Red Blood Count 3.19 L, Mean Corpuscular Volume 101.9 H, Mean Corpuscular Hemoglobin 31.7, Mean Corpuscular Hemoglobin Concent 31.1 L, Red Cell Dist ribution Width 13.4, Neutrophils (%) (Auto) 54.8, Lymphocytes (%) (Auto) 27.9, Monocytes (%) (Auto) 14.2 H, Eosinophils (%) (Auto) 2.4, Basophils (%) (Auto) 0.4, Neutrophils # (Auto) 4.3, Lymphocytes # (Auto) 2.2, Monocytes # (Auto) 1.1 H, Eosinophils # (Auto) 0.2, Basophils # (Auto) 0.0, Calcium Level 8.7 L Microbiology Microbiology 01/25/19 Respiratory Virus Panel (PCR) ([facility]) - Final, Complete GME ATTESTATION GME ATTESTATION My faculty preceptor for this patient encounter was physically present during the encounter and was fully available. All aspects of the patient interview, examination, medical decision making process, and medical care plan development were reviewed and approved by the faculty preceptor. The faculty preceptor is aware and concurs with the plan as stated in the body of this note and will at test to such by his/her cosignature. ATTENDING NOTE I saw and evaluated the patient. I agree with the findings and plan of care as documented in the resident's note YESSICA LANGSTON DO Jan 31, 2019 13:33 ROSA AUGUST MD February 01, 2019 16:26
[2019-01-31] MEDS: ACETAMINOPHEN 500 MG TAB PO PRN (13:46)
[2019-01-31 14:00] VITALS: BP 156/67
--- NOTE | 2019-01-31 16:58 | IPN ---
DATE: 01/31/2019 SUBJECTIVE: The patient was seen and examined at the bedside today morning. She was dialyzed yesterday. She tolerated the hemodialysis procedure well. 1.5 liters of fluid were removed. She denies any active complaints at this point. OBJECTIVE: Vital signs: Temperature is 97.8 degrees Fahrenheit, blood pressure one 177/77, pulse is 70, respiratory rate of 18, saturating 96% on room air. Intake and output. There is no urine output recorded. Ultrafiltration with hemodialysis was 1.5 liters. Weight in the bed scale is 71.3 kg. PHYSICAL EXAMINATION: General: The patient is awake, alert, oriented x3, laying in bed in no apparent distress. Head and neck exam: Extraocular muscles intact. Pupils equally round and reactive to light. Mucous membranes are moist. She is hard of hearing. Neck is supple. There is no jugular vein distension, (JVD). Cardiovascular: S1-S2 regular rate. No edema of the bilateral lower extremities. Respiratory: Chest is clear to auscultation bilaterally. Bilateral equal air entry. No rales or rhonchi. Abdomen: Soft. Positive bowel sounds. Nontender. No organomegaly. Musculoskeletal: No clubbing or cyanosis. Pulses are 2+. A AUXILIARY: No focal deficit. Power is 5/5 in all extremities. LABORATORY REVIEW: Complete blood count (CBC) showed white blood count (WBC) of 7.9, hemoglobin 10.1, platelets are 300. Basic metabolic panel (BMP) showed sodium 135, potassium 4.5, chloride 101, bicarbonate 26, BUN 21, creatinine 4.2. CURRENT INPATIENT MEDICATIONS: The patient's medications were all reviewed by me. She was receiving Coreg 6.25 mg once a day. I have changed it to 3.125 mg by mouth twice a day. No other change in her medications today as compared with yesterday. ASSESSMENT/PLAN: 1. End-stage renal disease on hemodialysis. The patient was dialyzed yesterday according to her Wednesday, Wednesday, Wednesday schedule. Volume status is optimal. Next dialysis will be tomorrow. 2. Chronic diastolic congestive heart failure. Volume status is optimal, 1.5 liters of fluid was removed. She continues to be on oral diuretics as well. 3. Hypertension with end-stage renal disease. The patient was receiving carvedilol once a day only. I have changed to a lower dose of 3.125 mg by mouth twice a day. Further change in the regimen will be done after response to the current dose of carvedilol. 4. Secondary hyperparathyroidism. Continue current dose of calcitriol 0.5 mcg by mouth daily.
[2019-01-31 22:00] VITALS: BP 148/71
[2019-01-31] MEDS: GABAPENTIN 100 MG CAP PO SCH (22:10)
[2019-01-31] MEDS: CARVedilol 3.125 MG TAB PO SCH (22:16)
[2019-02-01 00:15] VITALS: O2SAT 97
[2019-02-01 00:50] LABS: CREATININE FOR GFR 5.43 MG/DL (0.55-1.30); POTASSIUM SERUM 4.1 MEQ/L (3.5-5.1)
[2019-02-01 06:00] VITALS: BP 160/62
[2019-02-01] MEDS: HEPARIN SOD (PORCINE) 5000 UNITS/ML VIAL SC SCH ×2 (06:01→21:54)
[2019-02-01] MEDS: CALCITRIOL 0.25 MCG CAP (S0169) PO SCH (06:02)
[2019-02-01] MEDS: PANTOPRAZOLE 40MG INJ (PROTONIX) (C9113) IV SCH (06:02)
[2019-02-01] MEDS: FUROSEMIDE 40 MG TAB PO SCH ×2 (06:03→21:52)
[2019-02-01] MEDS: traMADol 50 MG TAB PO SCH ×2 (06:04→21:54)
[2019-02-01] MEDS: DULoxetine 30 MG CAP (CYMBALTA) PO SCH (06:05)
[2019-02-01] MEDS: SUCRALFATE 1 GM TAB PO SCH ×3 (06:05→21:52)
[2019-02-01] MEDS: ATORVASTATIN 20 MG TAB PO SCH (06:05)
[2019-02-01] MEDS: ASPIRIN 81 MG ENTERIC TAB PO SCH (06:05)
[2019-02-01] MEDS: CLOPIDOGREL 75 MG TAB PO SCH (06:05)
[2019-02-01] MEDS: CARVedilol 3.125 MG TAB PO SCH ×2 (06:08→21:52)
[2019-02-01 06:09] LABS: BASO % 0.3 % (0.0-1.0); EOS # 0.2 10^3/uL (0.0-0.50); EOS % 2.4 % (0.0-3.0); HEMATOCRIT 31.3 % (36.0-47.0); LYMPH # 2.5 10^3/uL (1.5-4.5); LYMPH % 31.6 % (24.0-44.0); MEAN CORPUSCULAR HEMOGLOBIN 32.4 pg (27.0-33.0); MEAN CORPUSCULAR HGB CONC 31.9 g/dl (32.0-36.5); MEAN CORPUSCULAR VOLUME 101.3 fl (80.0-96.0); MONO # 1.2 10^3/uL (0.0-0.8); MONO % 14.8 % (0.0-5.0); NEUTROPHILS % 50.6 % (36.0-66.0); PLATELET COUNT, AUTOMATED 267 10^3/uL (150-450); RED BLOOD COUNT 3.09 10^6/uL (4.00-5.40); WHITE BLOOD COUNT 7.8 10^3/uL (4.0-10.0)
[2019-02-01 06:24] LABS: CALCIUM LEVEL 8.9 MG/DL (8.8-10.2); CREATININE FOR GFR 5.71 MG/DL (0.55-1.30); GLOMERULAR FILTRATION RATE 7.6 (>32); POTASSIUM SERUM 4.1 MEQ/L (3.5-5.1)
[2019-02-01] MEDS: ALBUTEROL SULFATE 2.5 MG/0.5 ML INH NEB SOLN NEB SCH ×3 (07:45→22:10)
[2019-02-01] MEDS: BUDESONIDE 0.5 MG/2 ML INHALATION SUSPENSION INH SCH ×3 (07:45→22:10)
[2019-02-01] MEDS: LEVEMIR (INSULIN DETEMIR) 1 UNITS/0.01ML SC SCH ×2 (08:13→21:00)
[2019-02-01] MEDS: ANALGESIC BALM CRM 120 GM TOP SCH ×2 (08:13→21:54)
[2019-02-01] MEDS: HumaLOG INSULIN (NovoLOG) PER UNIT SC SCH ×4 (08:13→21:00)
--- NOTE | 2019-02-01 11:45 | IPNPDOC ---
Date Seen The patient was seen on 02/01/19. Progress Note SUBJECTIVE: Patient was seen and examined this morning. She currently has no complaints. There have been no adverse events overnight. Patient is receiving dialysis today. She is planned for discharge to [facility] tomorrow OBJECTIVE PHYSICAL EXAMINATION: VITAL SIGNS: Please see below. GENERAL: Awake and alert. Appears in no acute distress. Lying comfortably in bed. HEENT: Atraumatic normocephalic. Trachea is midline. Mucous membranes are pink and moist. Eyes are nonicteric CARDIOVASCULAR: Normal S1, S2. Regular rate and rhythm. No clicks rubs, or murmurs. RESPIRATORY: clear vesicular breath sounds bilaterally. Good respiratory effort. No wheezes, rhonci, or rales ABDOMINAL: Soft, nondistended. Nontender to palpation of all 4 quadrants. No rebound tenderness or guarding. Positive bowel sounds throughout EXTREMITIES: No edema. 2+ radial and posterior tibial pulses bilaterally NEUROLOGICAL: No focal neurological deficits PSYCHOLOGICAL: Mood and affect appear normal LABORATORY DATA, IMAGING STUDIES, MICROBIOLOGY: Please see below. Echocardiogram: REFERRING PHYSICIAN: Dr. Newsome INDICATION: Congestive heart failure. HEIGHT: 168 cm WEIGHT: 70 kg DIMENSIONS: IVS: 1.4 cm LV: 5.2 cm LVPW: 1.1 cm LA: 5.1 cm Aorta: 2.9 cm IVC: 2.0 cm Left atrial volume index: 42 Mitral E wave velocity: 121 A wave: 114 E prime septal: 3.7 E prime lateral: 4.6 FINDINGS: The study is of acceptable technical quality. The patient is in sinus rhythm. Left ventricle is normal size and overall normal systolic function. I estimate left ventricular ejection fraction (LVEF) around 50-55%. Right ventricle does not appear grossly enlarged. Left atrium is severely enlarged. Right atrium appears at least mildly enlarged. Aortic valve has three cusps. It is sclerotic, but mobility of cusp is preserved. There are very prominent mitral annular calcifications, especially at the base of posterior mitral leaflet. There is somewhat restricted motion of the leaflet and by 2-D imaging I assume mild mitral stenosis. Tricuspid valve appears normal. Pulmonic valve was not visualized. No pericardial effusion is noted. Inferior vena cava is on upper limits of normal size, but completely collapses with respiration indicative of likely normal central venous pressure. Aortic root and aortic arch appear normal. Abdominal aorta was not seen. Doppler interrogation of aortic valve reveals no stenosis and mild insufficiency. There is also mild mitral insufficiency. There is mild mitral stenosis with mean gradient across the valve of only 3 mmHg. There is trace tricuspid insufficiency. Calculated pulmonary artery pressure was within normal limits. Mitral inflow pattern and tissue Doppler imaging of mitral annulus revealed grade 2 diastolic dysfunction. CONCLUSIONS: 1. Study is of acceptable technical quality. 2. Normal LV size with grossly preserved LV systolic function and grade 2 diastolic dysfunction. Mild left ventricular hypertrophy (LVH). 3. Aortic sclerosis resulting in no significant stenosis and mild insufficiency. 4. Prominent degenerative abnormalities of mitral valve resulting in mild mitral stenosis and mild mitral insufficiency. 5. Likely normal central venous pressure and now normal pulmonary artery pressure. COMMENT: Subacute bacterial endocarditis (SBE) prophylaxis is not recommended. DD: Jose Owens MD 01/27/19710 DT: JUANPABLO 01/27/19716 DS: MIGDALIA [birth year]191933 <Electronically signed by Jose Owens MD> 01/29/191933 DVT prophylaxis ordered?: YES ASSESSMENT AND PLAN: Patient is an 78 year old female with a past medical history significant for ESRD on hemodialysis, hyperlipidemia, diabetes, CAD s/p ID, history of TIA, GERD, COPD who was recently admitted at [facility] from 01/13/19 to 01/21/19 for influenza and pneumonia. Prior to that admission she had a fall at home due to weakness on her right side and struck her right shoulder, right lateral chest wall and right side of the abdomen and was down on the floor unable to get up and was found by neighbors. She lives in a senior housing apartment complex At [facility] she was advised to go to rehab after hospitalization but the patient refused thinking that she was strong enough to manage by herself in her apartment. So she was discharged home. Since coming home she has continued to be extremely weak with severe body aches with extreme difficulty in ambulation. She also has been having nausea and dry heaves for the past 2 days and diarrhea for 2 days which she says seems to have stopped this am. She went to her routine HD today and on the way she was constantly sick in her stomach threw up 3 times and after reaching the HD unit she was extremely weak and could not get up by herself she was not feeling herself . The staff at the unit felt that she had altered mental status so she was sent to the ED for evaluation. She did not have her HD today. In the ED She had CT of head and CT cervical spine and Xray of right shoulder. There was no fracture or dislocation. She had a CXR also which showed pulmonary edema. She has not been able to keep anything down for the past 2 days. She is being admitted for intractable nausea and vomiting , unable to tolerate po intake with extreme generalized weakness and unable to ambulate. PROBLEMS: 1. Intractable Nausea and vomiting -Currently resolved. Likely secondary to acute gastritis after her recent hospitalization for pneumonia and influenza -Patient will be continued on Protonix, Zofran, and Carafate -Resolved 2. Generalized weakness/deconditioning -Patient has continued weakness and difficulty with ambulation. She has had a recent fall and continues to have soreness on the right side of her body which is improving. Her weakness and deconditioning are likely secondary to her recent influenza and pneumonia -Continue with PT -Awaiting placement. Possibly tomorrow 3. ESRD on Hemodialysis -Patient presented with Chest x-ray suggestive of mild fluid overload. -Receiving maintenance hemodialysis. -Patient will receive dialysis today and likely be discharged to [facility] tomorrow 4. Diastolic CHF Exacerbation -Patient received ECHO on 01/26 as shown above. EF of 50-55%. -Currently receiving Hemodialysis for fluid management -Continued on home lasix 5. Diabetic Nephrology -Continue Lispro and Levemir -Continue cymbalta and gabapentin 6. HTN -Continue Coreg 7. CAD w h/o ID and CABG -Currently stable 8. Hyperlipidemia -Continue statin 9. COPD -Duonebs -Pulmicort 10. GERD -Protinix and carafate 11. DVT prophylaxis -Heparin SQ DISPOSITION: Awaiting placement A-FIB/CHADSVASC A-FIB History Current/History of A-Fib/PAF?: No VS, I&O, 24H, Fishbone Vital Signs/I&O Vital Signs Date Time Temp Pulse Resp B/P (MAP) Pulse Ox O2 Delivery O2 Flow Rate FiO2 02/01/19 06:08 73 165/59 02/01/19 06:04 16 02/01/19 06:00 97.6 94 02/01/19 00:15 Room Air 01/29/19 06:00 2.0 I&O- Last 24 Hours up to 6 AM 02/01/19 06:00 Intake Total 1820 ml Output Total 550 ml Balance 1270 ml Laboratory Data 24H LABS Laboratory Tests 2 01/31/19 16:51: Bedside Glucose (Misc Panel) 96 01/31/19 20:35: Bedside Glucose (Misc Panel) 191H 02/01/19 00:04: Anion Gap 7L, Glomerular Filtration Rate 8.0L, Blood Urea Nitrogen 31H, Creatinine 5.43H, Sodium Level 137, Potassium Level 4.1, Chloride Level 100, Carbon Dioxide Level 30, Calcium Level 9.0 02/01/19 05:49: Anion Gap 6L, Glomerular Filtration Rate 7.6L, Blood Urea Nitrogen 33H, Creatinine 5.71H, Sodium Level 137, Potassium Level 4.1, Chloride Level 101, Carbon Dioxide Level 30, Calcium Level 8.9, Immature Granulocyte % (Auto) 0.3, White Blood Count 7.8, Red Blood Count 3.09L, Hemoglobin 10.0L, Hematocrit 31.3L, Mean Corpuscular Volume 101.3H, Mean Corpuscular Hemoglobin 32.4, Mean Corpuscular Hemoglobin Concent 31.9L, Red Cell Distribution Width 13.5, Platelet Count 267, Neutrophils (%) (Auto) 50.6, Lymphocytes (%) (Auto) 31.6, Monocytes (%) (Auto) 14.8H, Eosinophils (%) (Auto) 2.4, Basophils (%) (Auto) 0.3, Neutrophils # (Auto) 4.0, Lymphocytes # (Auto) 2.5, Monocytes # (Auto) 1.2H, Eosinophils # (Auto) 0.2, Basophils # (Auto) 0.0, Nucleated Red Blood Cells % (auto) 0.0 02/01/19 11:17: Bedside Glucose (Misc Panel) 136H CBC/BMP Laboratory Tests 02/01/19 00:04 Calcium Level 9.0 02/01/19 05:49 Calcium Level 8.9, Red Blood Count 3.09 L, Mean Corpuscular Volume 101.3 H, Mean Corpuscular Hemoglobin 32.4, Mean Corpuscular Hemoglobin Concent 31.9 L, Red Cell Distribution Width 13.5, Neutrophils (%) (Auto) 50.6, Lymphocytes (%) (Auto) 31.6, Monocytes (%) (Auto) 14.8 H, Eosinophils (%) (Auto) 2.4, Basophils (%) (Auto) 0.3, Neutrophils # (Auto) 4.0, Lymphocytes # (Auto) 2.5, Monocytes # (Auto) 1.2 H, Eosinophils # (Auto) 0.2, Basophils # (Auto) 0.0 Microbiology Microbiology 01/25/19 Respiratory Virus Panel (PCR) ([facility]) - Final, Complete GME ATTESTATION GME ATTESTATION My faculty preceptor for this patient encounter was physically present during the encounter and was fully available. All aspects of the patient interview, examination, medical decision making process, and medical care plan development were reviewed and approved by the faculty preceptor. The faculty preceptor is aware and concurs with the plan as stated in the body of this note and will attest to such by his/her cosignature. ATTENDING NOTE I saw and evaluated the patient. I agree with the findings and plan of care as documented in the resident's note YESSICA LANGSTON DO February 01, 2019 11:45 ROSA AUGUST MD February 04, 2019 16:12
[2019-02-01 14:00] VITALS: BP 148/64
--- NOTE | 2019-02-01 15:12 | IPN ---
DATE: 02/01/2019 SUBJECTIVE: The patient was seen and examined at the bedside today morning. She was sitting in the sofa. She is afebrile and hemodynamically stable. She denies any active complaints. Today is the patient's regular day of dialysis. OBJECTIVE: VITAL SIGNS: Temperature is 97.6 degrees Fahrenheit, blood pressure 165/59, pulse is 73, respiratory rate of 16, saturating 94% on room air. INTAKE AND OUTPUT: Urine output recorded is 200 mL. Weight in the bed scale is 72 kg. PHYSICAL EXAMINATION: GENERAL: The patient is awake, alert, oriented times three, sitting up in the sofa, in no apparent distress. HEAD AND NECK: Extraocular muscles intact. Pupils equally round and reactive to light. Mucous membranes are moist. Neck is supple. There is no jugular venous distention (JVD). CARDIOVASCULAR: S1, S2, regular rate. No edema of the bilateral lower extremities. RESPIRATORY: Chest is clear to auscultation bilaterally. Bilateral equal air entry. No rales or rhonchi. ABDOMEN: Soft. Positive bowel sounds. Nontender. No ascites. No organomegaly. MUSCULOSKELETAL: No clubbing or cyanosis. Pulses are 2+. CENTRAL NERVOUS SYSTEM (BOX HINGE AND LOCK ATTACHER): No focal deficit. Power is 5/5 in all extremities. LABORATORY REVIEW: CBC showed a WBC of 7.8, hemoglobin is 10, platelets are 267. BMP showed sodium 137, potassium 4.1, chloride 101, bicarbonate 30, BUN 33, creatinine is 5.7. CURRENT INPATIENT MEDICATIONS: The patient's medications were all reviewed by me. There is a change in her carvedilol dose which was changed to 3.125 mg by mouth twice a day. No other change in the medications today as compared with yesterday. ASSESSMENT AND PLAN: 1. End-stage renal disease on hemodialysis. Today is the patient's regular day of dialysis. She will be dialyzed today. 2. Chronic diastolic congestive heart failure. Volume status is optimal. Further fluid removal will be done during dialysis tomorrow. Continue current dose of carvedilol. 3. Hypertension with end-stage renal disease. Her carvedilol dose was changed to 3.125 mg by mouth twice a day. Further change in the regimen will be done in the next 24 hours. 4. Anemia and end-stage renal disease. Hemoglobin is 10 which is optimal. She continues to receive Aranesp 100 mcg IV with hemodialysis. 5. Secondary hyperparathyroidism. Continue current dose of calcitriol 0.5 mcg by mouth daily. MTDD
[2019-02-01] MEDS: GABAPENTIN 100 MG CAP PO SCH (21:52)
[2019-02-01 22:00] VITALS: BP 142/64
[2019-02-02 00:51] VITALS: O2SAT 97
[2019-02-02] MEDS: SUCRALFATE 1 GM TAB PO SCH ×3 (05:27→22:24)
[2019-02-02 06:00] VITALS: BP 138/68
[2019-02-02 06:09] LABS: BASO % 0.2 % (0.0-1.0); EOS # 0.2 10^3/uL (0.0-0.50); EOS % 2.2 % (0.0-3.0); HEMATOCRIT 34.1 % (36.0-47.0); HEMOGLOBIN 10.8 g/dl (12.0-15.5); LYMPH # 2.9 10^3/uL (1.5-4.5); LYMPH % 32.5 % (24.0-44.0); MEAN CORPUSCULAR HEMOGLOBIN 31.8 pg (27.0-33.0); MEAN CORPUSCULAR HGB CONC 31.7 g/dl (32.0-36.5); MEAN CORPUSCULAR VOLUME 100.3 fl (80.0-96.0); MONO # 1.3 10^3/uL (0.0-0.8); MONO % 15.1 % (0.0-5.0); NEUTROPHILS # 4.4 10^3/uL (1.8-7.7); NEUTROPHILS % 49.5 % (36.0-66.0); PLATELET COUNT, AUTOMATED 299 10^3/uL (150-450); WHITE BLOOD COUNT 8.8 10^3/uL (4.0-10.0)
[2019-02-02 06:29] LABS: CALCIUM LEVEL 9.6 MG/DL (8.8-10.2); CREATININE FOR GFR 3.74 MG/DL (0.55-1.30); GLOMERULAR FILTRATION RATE 12.4 (>32)
[2019-02-02] MEDS: HumaLOG INSULIN (NovoLOG) PER UNIT SC SCH ×4 (07:21→21:00)
[2019-02-02] MEDS: LEVEMIR (INSULIN DETEMIR) 1 UNITS/0.01ML SC SCH ×2 (08:00→22:00)
[2019-02-02] MEDS: HEPARIN SOD (PORCINE) 5000 UNITS/ML VIAL SC SCH ×2 (08:00→22:02)
[2019-02-02] MEDS: FUROSEMIDE 40 MG TAB PO SCH ×2 (08:01→21:59)
[2019-02-02] MEDS: ATORVASTATIN 20 MG TAB PO SCH (08:01)
[2019-02-02] MEDS: DULoxetine 30 MG CAP (CYMBALTA) PO SCH (08:01)
[2019-02-02] MEDS: CLOPIDOGREL 75 MG TAB PO SCH (08:01)
[2019-02-02] MEDS: CALCITRIOL 0.25 MCG CAP (S0169) PO SCH (08:01)
[2019-02-02] MEDS: PANTOPRAZOLE 40MG INJ (PROTONIX) (C9113) IV SCH (08:01)
[2019-02-02] MEDS: CARVedilol 3.125 MG TAB PO SCH ×2 (08:02→22:02)
[2019-02-02] MEDS: ANALGESIC BALM CRM 120 GM TOP SCH ×2 (08:02→21:00)
[2019-02-02] MEDS: ASPIRIN 81 MG ENTERIC TAB PO SCH (08:02)
[2019-02-02] MEDS: traMADol 50 MG TAB PO SCH ×2 (08:02→22:00)
[2019-02-02] MEDS: BUDESONIDE 0.5 MG/2 ML INHALATION SUSPENSION INH SCH ×2 (08:51→20:00)
[2019-02-02] MEDS: ALBUTEROL SULFATE 2.5 MG/0.5 ML INH NEB SOLN NEB SCH ×2 (08:51→15:40)
--- NOTE | 2019-02-02 10:25 | DS.PDOC ---
Discharge Summary General Date of Admission Jan 25, 2019 at 16:54 Date of Discharge 02/02/19 Attending Physician: ROSA AUGUST MD Specialist/Consultants Involve: MARCELA JAFFE MD @ Discharge Summary PROCEDURES PERFORMED DURING STAY: [None]. ADMITTING DIAGNOSES: 1. Intractable nausea and vomiting 2/2 acute gastritisduodenitis 2. Weakness, physical deconditioning 3. ESRD 4. Diastolic CHF exacerbation 5. Diabetes with neuropathy 6. HTN 7. CAD with H/O AMI and CABG 8. COPD 9. GERD DISCHARGE DIAGNOSES: 1. Intractable nausea and vomiting 2/2 acute gastritisduodenitis 2. Weakness, physical deconditioning 3. ESRD 4. Diastolic CHF exacerbation 5. Diabetes with neuropathy 6. HTN 7. CAD with H/O AMI and CABG 8. COPD 9. GERD COMPLICATIONS/CHIEF COMPLAINT: Altered Mental State. HISTORY OF PRESENT ILLNESS: Patient is an 78-year old female with a past medical history significant for ESRD on hemodialysis, hyperlipidemia, diabetes, depression, CAD s/p CT and CABG, history of TIA, history of basal cell carcinoma on the back and ear s/p resection in 2018, COPD, and GERD who had recently been admitted to [facility] from 01/13/19 to 01/21/19 for influenza and pneumonia. Prior to her admission she had fallen at home due to weakness and hurt her right side shoulder, right lateral chest wall, and right side of her abdomen. At the time the patient was found by her neighbors at the [facility] complex in [facility]. At her hospitalization she was recommended to go to rehab. She refused and was discharged home. After arriving back at her apartment, she continued to be weak with severe body aches and difficulty with ambulation. She continued to have nausea and dry heaves for the past 2 days. She had gone to her routine dialysis day however, she was constantly sick to her stomach and continued to have emesis. The staff at the diaylsis center felt she was altered mental status and the patient was sent to the [facility] ER evaluation. In the ED, the patient received a CT of the head, cervical spine and an X-ray of her right shoulder. There were no fractures or dislocations. Her chest x-ray did show pulmonary edema. The patient was admitted for intractable nausea, vomiting, generalized weakness and inability to ambulate. HOSPITAL COURSE: Once admitted to the hospital the patient was treated for likely acute gastritis/duodenitis. Her nausea and vomiting had resolved over the subsequent days. The patient continued her HD inpatient. She continued to have generalized weakness however her strength was gradually returning. She did continue to complain of pain on her right side where she had fallen. Patient was given pain medication while in the hospital and noted improvement in her pain. She was found to have a mild CHF exacerbation on admission. Her volume status was managed during her hemodilaysis DISCHARGE MEDICATIONS: Please see below. ALLERGIES: Please see below. PHYSICAL EXAMINATION ON DISCHARGE: VITAL SIGNS: Please see below. GENERAL: Awake and alert. Appears in no acute distress. Lying comfortably in bed. HEENT: Atraumatic normocephalic. Trachea is midline. Mucous membranes are pink and moist. Eyes are nonicteric CARDIOVASCULAR: Normal S1, S2. Regular rate and rhythm. No clicks rubs, or murmurs. RESPIRATORY: clear vesicular breath sounds bilaterally. Good respiratory effort. No wheezes, rhonci, or rales ABDOMINAL: Soft, nondistended. Nontender to palpation of all 4 quadrants. No rebound tenderness or guarding. Positive bowel sounds throughout EXTREMITIES: No edema. 2+ radial and posterior tibial pulses bilaterally NEUROLOGICAL: No focal neurological deficits PSYCHOLOGICAL: Mood and affect appear normal LABORATORY DATA: Please see below. IMAGING: RIGHT SHOULDER, THREE VIEWS: Three views of the right shoulder performed. No fracture or dislocation is seen. There is mild joint space narrowing and spurring at both the acromioclavicular and glenohumeral joints. A subclavian stent is seen. Vascular calcification and interstitial infiltrates are seen in the right lung. IMPRESSION: Degenerative changes without fracture or dislocation. Electronically Signed by Mando Aguero MD 01/26/2019 11:00 A Pelvis right hip: Three views: History: Pneumonia. Findings: AP view of the pelvis and AP and frog-leg views of the right hip are presented. The bony pelvic ring is intact. No pelvic or sacral fracture is appreciated. There are mild degenerative changes in the symphysis pubis. There is acetabular spurring bilaterally, right a little more so than left. Vascular calcifications noted. Femoral head is smooth and rounded. No fracture or bony erosive changes seen. Impression: Osteoarthritis. No acute bony abnormality. Electronically Signed by Lopez Alexander MD 01/25/2019 04:[address] Head without contrast HISTORY: Fall COMPARISON: 11/24/2016 Areas of decreased attenuation are present in the periventricular white matter. This represents small-vessel ischemic disease. There is no intraparenchymal hemorrhage, acute infarct, mass or midline shift. The ventricular system and cortical sulci are dilated consistent with mild volume loss. There is no extra cerebral collection. There is no fracture. The visualized sinuses are clear. IMPRESSION: 1. Small vessel ischemic disease. 2. Mild volume loss. Chest x-ray: Two views. History: Pneumonia. Comparison chest x-ray: November 24, 2016. Findings: The patient is status post median sternotomy. Moderate cardiomegaly is observed. Pulmonary vasculature is congested and indistinct. Interstitial markings are prominent, more so than on the prior study from November 2016. There is some fissural thickening on the lateral radiograph and posterior pleural angle blunting is seen bilaterally consistent with small bilateral effusions. There are degenerative changes in the thoracic spine. There is a vascular stent in the right subclavicular soft tissues. Impression: Cardiomegaly, vascular congestion, and interstitial edema. Some Yogi B lines. Slightly blunted posterior pleural angles bilaterally. CHF pattern. Electronically Signed by Lopez Alexander MD 01/25/2019 04:06 P Electronically Signed by Gato Braswell MD 01/25/2019 02:[address] cervical spine without contrast HISTORY: Fall COMPARISON: None There is no acute fracture or subluxation. A disc bulge is present at the C3-4 level. Disc bulges with associated osteophyte formation are present at the C4-5 through C6-7 levels. There is minimal to mild narrowing of the spinal canal. Uncinate process and/or facet hypertrophy are present at the C3-4 through C6-7 levels. These findings produce minimal to moderate narrowing of the the neural foramina. The C4-5 through C6-7 intervertebral discs are decreased in height consistent with disc degeneration. Calcification is present in the right thyroid lobe. IMPRESSION: 1. There is no acute fracture or subluxation. 2. There is cervical spondylosis at the C3-4 through C6-7 levels. Electronically Signed by Gato Braswell MD 01/25/2019 02:[address] thoracic spine without contrast. HISTORY: Back pain COMPARISON : None There is no acute fracture or subluxation. There is no definite disc bulge or herniation. Small posterior osteophytes are present at the T7 -8 through T11-12 levels. Scattered areas of facet hypertrophy are present throughout the thoracic spine. There is minimal narrowing of the spinal canal. The visualized neural foramina are patent. There is loss of height of several mid and lower thoracic intervertebral discs. Vacuum phenomenon is present at the T11-12 and T12-L1 levels. These findings are consistent with disc degeneration. An increase in interstitial markings is present in the lungs. Bilateral pleural effusions are present. IMPRESSION: 1. There is no acute fracture or subluxation. 2. Degenerative change as described above. 3. There is an increase in interstitial markings in the lungs and bilateral pleural effusions. Electronically Signed by Gato Braswell MD 01/25/2019 06:08 P PROGNOSIS: Good ACTIVITY: [As tolerated]. DIET: tolerated DISCHARGE PLAN: Patient is to be discharged to [facility] for ongoing rehabilitation. She is to continue her home medications. She is to continue her normal hemodialysis schedule of MWF. Patient is to follow-up with her primary care in 2-4 weeks. DISCHARGE CONDITION: [Stable]. TIME SPENT ON DISCHARGE: Greater than 35 minutes. Vital Signs/I&Os Vital Signs Date Time Temp Pulse Resp B/P (MAP) Pulse Ox O2 Delivery O2 Flow Rate FiO2 02/02/19 06:00 96.4 67 16 138/68 (91) 97 02/02/19 00:51 Room Air 01/29/19 06:00 2.0 I&O- Last 24 Hours up to 6 AM 02/02/19 06:00 Intake Total 300 ml Output Total 1825 ml Balance -1525 ml Laboratory Data Labs 24H Laboratory Tests 2 02/01/19 11:17: Bedside Glucose (Misc Panel) 136H 02/01/19 16:16: Bedside Glucose (Misc Panel) 175H 02/02/19 05:38: Immature Granulocyte % (Auto) 0.5, White Blood Count 8.8, Red Blood Count 3.40L, Hemoglobin 10.8L, Hematocrit 34.1L, Mean Corpuscular Volume 100.3H, Mean Corpuscular Hemoglobin 31.8, Mean Corpuscular Hemoglobin Concent 31.7L, Red Cell Distribution Width 13.6, Platelet Count 299, Neutrophils (%) (Auto) 49.5, Lymphocytes (%) (Auto) 32.5, Monocytes (%) (Auto) 15.1H, Eosinophils (%) (Auto) 2.2, Basophils (%) (Auto) 0.2, Neutrophils # (Auto) 4.4, Lymphocytes # (Auto) 2.9, Monocytes # (Auto) 1.3H, Eosinophils # (Auto) 0.2, Basophils # (Auto) 0.0, Nucleated Red Blood Cells % (auto) 0.0, Anion Gap 5L, Glomerular Filtration Rate 12.4L, Blood Urea Nitrogen 18, Creatinine 3.74H, Sodium Level 135L, Potassium Level 4.0, Chloride Level 99, Carbon Dioxide Level 31, Calcium Level 9.6 CBC/BMP Laboratory Tests 02/02/19 05:38 Red Blood Count 3.40 L, Mean Corpuscular Volume 100.3 H, Mean Corpuscular Hemoglobin 31.8, Mean Corpuscular Hemoglobin Concent 31.7 L, Red Cell Distribution Width 13.6, Neutrophils (%) (Auto) 49.5, Lymphocytes (%) (Auto) 32.5, Monocytes (%) (Auto) 15.1 H, Eosinophils (%) (Auto) 2.2, Basophils (%) (Auto) 0.2, Neutrophils # (Auto) 4.4, Lymphocytes # (Auto) 2.9, Monocytes # (Auto) 1.3 H, Eosinophils # (Auto) 0.2, Basophils # (Auto) 0.0, Calcium Level 9.6 FSBS Laboratory Tests Test 02/01/19 11:17 02/01/19 16:16 Range/Units Bedside Glucose (Misc Panel) 136 175 83-110 MG/DL Microbiology Microbiology 01/25/19 Respiratory Virus Panel (PCR) ([facility]) - Final, Complete Discharge Medications Scheduled Aspirin (Aspirin EC) 81 Mg Tab, 81 MG PO DAILY, (Reported) Atorvastatin Calcium (Atorvastatin Calcium) 40 Mg Tablet, 40 MG PO DAILY, (R eported) Calcitriol (Rocaltrol) 0.25 Mcg Cap, 0.5 MCG PO DAILY, (Reported) Carvedilol (Coreg) 6.25 Mg Tab, 6.25 MG PO DAILY, (Reported) Clopidogrel Bisulfate (Plavix) 75 Mg Tab, 75 MG PO DAILY, (Reported) Duloxetine Hcl (Cymbalta) 30 Mg Cap, 30 MG PO DAILY, (Reported) Famotidine (Famotidine) 20 Mg Tablet, 20 MG PO QHS, (Reported) Furosemide (Lasix) 40 Mg Tab, 120 MG PO BID, (Reported) Gabapentin (Gabapentin) 100 Mg Capsule, 100 MG PO QHS, (Reported) RECENTLY CHANGED AT [facility] - DISCHARGED ON 01/21/19. WAS TAKING 100MG TID AND CHANGED TO 100MG QHS Insulin Glargine (Lantus) 1 Units/0.01 Ml Susp, 24 UNITS SC QHS, (Reported) Insulin Lispro (Humalog Kwikpen U-100) 100 Unit/Ml Inj, 10 UNITS SC AC, (Reported) Vitamin D (Vitamin D3) 1,000 Unit Tablet, 2,000 UNITS PO DAILY, (Reported) Scheduled PRN Ondansetron HCl (Zofran) 4 Mg Tablet, 4 MG PO Q6H PRN for NAUSEA OR VOMITING, (Reported) Polyethylene Glycol 3350 (Miralax) 119 Gm Powder, 17 GM PO DAILY PRN for CONSTIPATION, (Reported) Allergies Coded Allergies: ceftriaxone (Verified Allergy, Severe, SOB, hives,, 01/25/19) Penicillins (Verified Allergy, Intermediate, unknown , 01/25/19) codeine (Verified Allergy, Intermediate, hives/ rash, 01/25/19) nitroglycerin (Verified Allergy, Intermediate, unknown , 01/25/19) Sulfa (Sulfonamide Antibiotics) (Verified Adverse Reaction, Intermediate, dizziness, 01/25/19) GME ATTESTATION GME ATTESTATION My faculty preceptor for this patient encounter was physically present during the encounter and was fully available. All aspects of the patient interview, examination, medical decision making process, and medical care plan development were reviewed and approved by the faculty preceptor. The faculty preceptor is aware and concurs with the plan as stated in the body of this note and will attest to such by his/her cosignature. ATTENDING NOTE I saw and evaluated the patient. I agree with the findings and plan of care as documented in the resident's note YESSICA LANGSTON DO February 02, 2019 07:26 ROSA AUGUST MD February 04, 2019 16:20
--- NOTE | 2019-02-02 12:42 | IPN ---
DATE: 02/02/2019 SUBJECTIVE: Patient was seen and examined at the bedside today morning. She is afebrile, hemodynamically stable. She was dialyzed yesterday; 1.5 liters of fluid was removed. I was told the patient has a bed available at [facility] and she is going to be discharged today. OBJECTIVE: VITAL SIGNS: Temperature is 96.4 degrees Fahrenheit, blood pressure 138/68, pulse is 67, respiratory rate of 16, saturating 97% on room air. INTAKE AND OUTPUT: Urine output recorded is 325 mL. Ultrafiltration with hemodialysis was 1.5 liters. Weight in the bed scale is 71.3 kg. PHYSICAL EXAMINATION: GENERAL: The patient is awake, alert, oriented times two, laying in bed, no apparent distress. HEAD AND NECK EXAM: Extraocular muscles intact. Pupils equally round and reactive to light. Mucous membranes are moist. Neck is supple. There is no jugular venous distention (JVD). CARDIOVASCULAR: S1, S2. Regular rate. No edema of the bilateral lower extremities. RESPIRATORY: Chest is clear to auscultation bilaterally. Bilateral equal air entry. No rales or rhonchi. ABDOMEN: Soft. Positive bowel sounds. Nontender. No ascites. No organomegaly. MUSCULOSKELETAL: No clubbing or cyanosis. Pulses are 2+. CENTRAL NERVOUS SYSTEM (1ST GRADE TEACHER): No focal deficit. Power is 5/5 in all extremities. LABORATORY REVIEW: Complete blood count (CBC) showed a WBC 8.8, hemoglobin 10.8, platelets of 299. Basic metabolic panel (BMP) showed sodium 135, potassium is 4, chloride 99, bicarbonate 31, BUN 18, creatinine is 3.7. CURRENT INPATIENT MEDICATIONS: Patient's medications were all reviewed by me. There is no change in the medications today as compared with yesterday. ASSESSMENT AND PLAN: 1. End-stage renal disease on hemodialysis. The patient's regular dialysis days are Wednesday, Wednesday, Wednesday. She was dialyzed yesterday. Next hemodialysis session will be as outpatient at dialysis center. 2. Chronic diastolic congestive heart failure. Volume status is optimal. Continue current dose of carvedilol. Dry weight will be adjusted when she goes to the outpatient dialysis center. 3. Hypertension with end-stage renal disease and hypertensive heart disease. Continue current dose of carvedilol 3.125 mg by mouth twice a day. Blood pressures are in the acceptable range. 4. Anemia in end-stage renal disease. Hemoglobin is optimal. The rest of the anemia management will be done as outpatient. DISPOSITION: It is okay to discharge the patient from a nephrology standpoint. She will be evaluated again at dialysis center tomorrow.
[2019-02-02 14:00] VITALS: BP 139/73
[2019-02-02 20:00] VITALS: BP 138/77
[2019-02-02] MEDS: GABAPENTIN 100 MG CAP PO SCH (21:59)
[2019-02-03 06:00] VITALS: BP 143/71
[2019-02-03] MEDS: CLOPIDOGREL 75 MG TAB PO SCH (06:14)
[2019-02-03] MEDS: SUCRALFATE 1 GM TAB PO SCH (06:14)
[2019-02-03] MEDS: DULoxetine 30 MG CAP (CYMBALTA) PO SCH (06:15)
[2019-02-03] MEDS: ATORVASTATIN 20 MG TAB PO SCH (06:15)
[2019-02-03] MEDS: CALCITRIOL 0.25 MCG CAP (S0169) PO SCH (06:15)
[2019-02-03] MEDS: ASPIRIN 81 MG ENTERIC TAB PO SCH (06:16)
[2019-02-03] MEDS: FUROSEMIDE 40 MG TAB PO SCH ×2 (06:16→21:28)
[2019-02-03] MEDS: traMADol 50 MG TAB PO SCH ×2 (06:17→21:29)
[2019-02-03] MEDS: HEPARIN SOD (PORCINE) 5000 UNITS/ML VIAL SC SCH ×2 (06:18→21:31)
[2019-02-03] MEDS: CARVedilol 3.125 MG TAB PO SCH ×2 (06:21→21:30)
[2019-02-03] MEDS: ANALGESIC BALM CRM 120 GM TOP SCH ×2 (06:21→23:32)
[2019-02-03 07:02] VITALS: O2SAT 96
[2019-02-03] MEDS: ALBUTEROL SULFATE 2.5 MG/0.5 ML INH NEB SOLN NEB SCH ×4 (07:09→20:04)
[2019-02-03] MEDS: BUDESONIDE 0.5 MG/2 ML INHALATION SUSPENSION INH SCH ×2 (07:09→20:04)
[2019-02-03] MEDS: LEVEMIR (INSULIN DETEMIR) 1 UNITS/0.01ML SC SCH ×2 (08:33→21:31)
[2019-02-03] MEDS: PANTOPRAZOLE 40MG TAB (PROTONIX) PO SCH (08:34)
[2019-02-03] MEDS: HumaLOG INSULIN (NovoLOG) PER UNIT SC SCH ×4 (08:34→21:32)
[2019-02-03 08:45] LABS: CALCIUM LEVEL 9.4 MG/DL (8.8-10.2); CREATININE FOR GFR 5.41 MG/DL (0.55-1.30); GLOMERULAR FILTRATION RATE 8.1 (>32); POTASSIUM SERUM 4.3 MEQ/L (3.5-5.1)
[2019-02-03] MEDS: MIRALAX *UNIT DOSE* 17GM PACKET PO PRN (10:20)
--- NOTE | 2019-02-03 11:24 | IPNPDOC ---
Date Seen The patient was seen on 02/03/19. Progress Note SUBJECTIVE: Patient was seen and examined this morning. She currently states that she feels constipated. She otherwise has no new complaints. Patient was to be discharged to [facility] yesterday for short term rehab. At the time, the patient had a bed and had only needed transportation. It appears that there is difficulty with the patients insurance provider and therefore the patient was un able to be discharged. OBJECTIVE PHYSICAL EXAMINATION: VITAL SIGNS: Please see below. GENERAL: Awake and alert. Appears in no acute distress. Lying comfortably in bed. HEENT: Atraumatic normocephalic. Trachea is midline. Mucous membranes are pink and moist. Eyes are nonicteric CARDIOVASCULAR: Normal S1, S2. Regular rate and rhythm. No clicks rubs, or murmurs. RESPIRATORY: clear vesicular breath sounds bilaterally. Good respiratory effort. No wheezes, rhonci, or rales ABDOMINAL: Soft, nondistended. Nontender to palpation of all 4 quadrants. No rebound tenderness or guarding. Positive bowel sounds throughout EXTREMITIES: No edema. 2+ radial and posterior tibial pulses bilaterally NEUROLOGICAL: No focal neurological deficits PSYCHOLOGICAL: Mood and affect appear normal LABORATORY DATA, IMAGING STUDIES, MICROBIOLOGY: Please see below. DVT prophylaxis ordered?: YES ASSESSMENT AND PLAN: Patient is an 78 year old female with a past medical history significant for ESRD on hemodialysis, hyperlipidemia, diabetes, CAD s/p OK, history of TIA, GERD, COPD who was recently admitted at [facility] from 01/13/19 to 01/21/19 for influenza and pneumonia. Prior to that admission she had a fall at home due to weakness on her right side and struck her right shoulder, right lateral chest wall and right side of the abdomen and was down on the floor unable to get up and was found by neighbors. She lives in a senior housing apartment complex At [facility] she was advised to go to rehab after hospitalization but the patient refused thinking that she was strong enough to manage by herself in her apartment. So she was discharged home. Since coming home she has continued to be extremely weak with severe body aches with extreme difficulty in ambulation. She also has been having nausea and dry heaves for the past 2 days and diarrhea for 2 days which she says seems to have stopped this am. She went to her routine HD today and on the way she was constantly sick in her stomach threw up 3 times and after reaching the HD unit she was extremely weak and could not get up by herself she was not feeling herself . The staff at the unit felt that she had altered mental status so she was sent to the ED for evaluation. She did not have her HD today. In the ED She had CT of head and CT cervical spine and Xray of right shoulder. There was no fracture or dislocation. She had a CXR also which showed pulmonary edema. She has not been able to keep anything down for the past 2 days. She is being admitted for intractable nausea and vomiting , unable to tolerate po intake with extreme generalized weakness and unable to ambulate. PROBLEMS: 1. Intractable Nausea and vomiting -Currently resolved. Likely secondary to acute gastritis after her recent hospitalization for pneumonia and influenza -Patient will be continued on Protonix, Zofran, and Carafate -Resolved 2. Generalized weakness/deconditioning -Patient has continued weakness and difficulty with ambulation. She has had a recent fall and continues to have soreness on the right side of her body which is improving. Her weakness and deconditioning are likely secondary to her recent influenza and pneumonia -Continue with PT -Awaiting placement. Likely Wednesday 3. ESRD on Hemodialysis -Patient presented with Chest x-ray suggestive of mild fluid overload. -Receiving maintenance hemodialysis. 4. Diastolic CHF Exacerbation -Patient received ECHO on 01/26 as shown above. EF of 50-55%. -Currently receiving Hemodialysis for fluid management -Continued on home lasix 5. Diabetic Nephrology -Continue Lispro and Levemir -Continue cymbalta and gabapentin 6. HTN -Continue Coreg 7. CAD w h/o OK and CABG -Currently stable 8. Hyperlipidemia -Continue statin 9. COPD -Duonebs -Pulmicort 10. GERD -Protinix and carafate 11. DVT prophylaxis -Heparin SQ DISPOSITION: Patient currently has a bed at [facility] for short term rehab. There has been difficulty with the patients insurance company resulting in the inability to get transportation. At this current time, the patient is anticipated to be discharged to short term rehab on Wednesday A-FIB/CHADSVASC A-FIB History Current/History of A-Fib/PAF?: No VS, I&O, 24H, Fishbone Vital Signs/I&O Vital Signs Date Time Temp Pulse Resp B/P (MAP) Pulse Ox O2 Delivery O2 Flow Rate FiO2 02/03/19 07:02 96 Room Air 02/03/19 06:21 72 141/72 02/03/19 06:17 14 02/03/19 06:00 97.4 01/29/19 06:00 2.0 I&O- Last 24 Hours up to 6 AM 02/03/19 06:00 Intake Total 225 ml Output Total 0 ml Balance 225 ml Laboratory Data 24H LABS Laboratory Tests 2 02/02/19 11:47: Bedside Glucose (Misc Panel) 225H 02/02/19 17:07: Bedside Glucose (Misc Panel) 98 02/02/19 19:56: Bedside Glucose (Misc Panel) 127H 02/03/19 05:55: Bedside Glucose (Misc Panel) 135H 02/03/19 08:05: Anion Gap 8, Glomerular Filtration Rate 8.1L, Blood Urea Nitrogen 34#H, Creatinine 5.41H, Sodium Level 135L, Potassium Level 4.3, Chloride Level 100, Ca rbon Dioxide Level 27, Calcium Level 9.4 CBC/BMP Laboratory Tests 02/03/19 08:05 Calcium Level 9.4 Microbiology Microbiology 01/25/19 Respiratory Virus Panel (PCR) ([facility]) - Final, Complete GME ATTESTATION GME ATTESTATION My faculty preceptor for this patient encounter was physically present during the encounter and was fully available. All aspects of the patient interview, examination, medical decision making process, and medical care plan development were reviewed and approved by the faculty preceptor. The faculty preceptor is aware and concurs with the plan as stated in the body of this note and will attest to such by his/her cosignature. ATTENDING NOTE I saw and evaluated the patient. I agree with the findings and plan of care as documented in the resident's note YESSICA LANGSTON DO February 03, 2019 11:24 ROSA AUGUST MD February 05, 2019 16:37
[2019-02-03 14:00] VITALS: BP 130/58
--- NOTE | 2019-02-03 15:06 | IPN ---
DATE: 02/03/2019 SUBJECTIVE: Patient was seen and examined at the bedside today morning. She was supposed to be discharged yesterday; however, there were some issues with the transportation. Patient is staying over the weekend. She will be discharged on 02/05/2019. Patient is otherwise afebrile, hemodynamically stable and she denies any active complaints at this point. OBJECTIVE: VITAL SIGNS: Temperature is 97.4 degrees Fahrenheit, blood pressure is 141/72, pulse is 72, respiratory rate of 14, saturating 96% on room air. INTAKE AND OUTPUT: There is no urine output recorded. Weight in the bed scale is 72.4 kg. PHYSICAL EXAMINATION: GENERAL: Patient is awake, alert, oriented times three, sitting up in the sofa in no apparent distress. HEAD AND NECK EXAM: Extraocular muscles intact. Pupils equally round and reactive to light. Mucous membranes are moist. Neck is supple. There is no jugular venous distention (JVD). CARDIOVASCULAR: S1, S2. Regular rate. No edema of the bilateral lower extremities. RESPIRATORY: Chest is clear to auscultation bilaterally. Bilateral equal air entry. No rales or rhonchi. ABDOMEN: Soft. Positive bowel sounds. Nontender. No ascites. No organomegaly. MUSCULOSKELETAL: No clubbing or cyanosis. Pulses are 2+. CENTRAL NERVOUS SYSTEM (REPAIRER PUMP): No focal deficit. Power is 5/5 in all extremities. LABORATORY REVIEW: Complete blood count (CBC) is from yesterday and basic metabolic panel (BMP) today morning showed sodium 135, potassium 4.3, chloride 100, bicarbonate 27, BUN 34, creatinine is 5.4. CURRENT INPATIENT MEDICATIONS: Patient's medications were all reviewed by me. I am stopping the Carafate today because aluminum levels were up last week. Protonix has been changed to 40 mg by mouth daily. No other change in the medications today as compared with yesterday. ASSESSMENT AND PLAN: 1. End-stage renal disease on hemodialysis. Patient's regular days are Wednesday, Wednesday, Wednesday; however, she is staying over the weekend, so I would dialyze her tomorrow morning and she will be optimized for discharge on Wednesday morning. 2. Chronic diastolic congestive heart failure. Volume status is optimal. Continue furosemide and carvedilol. 3. Hypertension with end-stage renal disease and hypertensive heart disease. Continue current dose of Coreg. 4. Gastroesophageal reflux disease. Okay to continue Protonix, but I would avoid using penitentiary Carafate in this patient with renal disease as there is a risk of aluminum toxicity. 5. Anemia in end-stage renal disease. Hemoglobin was 10.8, which is optimal. Patient is getting Aranesp 100 mcg with hemodialysis. The rest of the anemia management will be done as outpatient.
[2019-02-03 21:20] VITALS: O2SAT 99
[2019-02-03] MEDS: GABAPENTIN 100 MG CAP PO SCH (21:28)
[2019-02-03 22:00] VITALS: BP 128/60
[2019-02-04 06:00] VITALS: BP 159/64
[2019-02-04 06:23] LABS: HEMATOCRIT 31.7 % (36.0-47.0); MEAN CORPUSCULAR HEMOGLOBIN 31.8 pg (27.0-33.0); MEAN CORPUSCULAR HGB CONC 31.5 g/dl (32.0-36.5); PLATELET COUNT, AUTOMATED 269 10^3/uL (150-450); RED BLOOD COUNT 3.14 10^6/uL (4.00-5.40); WHITE BLOOD COUNT 7.3 10^3/uL (4.0-10.0)
[2019-02-04] MEDS: HumaLOG INSULIN (NovoLOG) PER UNIT SC SCH ×4 (07:30→21:00)
[2019-02-04] MEDS: ALBUTEROL SULFATE 2.5 MG/0.5 ML INH NEB SOLN NEB SCH ×2 (08:00→15:10)
[2019-02-04] MEDS: BUDESONIDE 0.5 MG/2 ML INHALATION SUSPENSION INH SCH ×2 (08:00→20:03)
[2019-02-04] MEDS: ANALGESIC BALM CRM 120 GM TOP SCH ×2 (09:00→21:16)
[2019-02-04 09:06] LABS: CREATININE FOR GFR 6.1 MG/DL (0.55-1.30); POTASSIUM SERUM 4.5 MEQ/L (3.5-5.1)
[2019-02-04] MEDS ORDERED: HEPARIN 1,000 UNITS/ML 10ML VIAL (FOR RADIOLOGY& DIALYSIS ONLY) IV ONE (10:30)
[2019-02-04] MEDS ORDERED: LIDOCAINE 1% SDV 5 ML VIAL SQ ONE (10:30)
[2019-02-04 11:16] VITALS: BP 115/58
--- NOTE | 2019-02-04 11:27 | IPNPDOC ---
Date Seen The patient was seen on 02/04/19. Progress Note SUBJECTIVE: Patient was seen and examined this morning. The patient was in dialysis. She currently has no complaints. She states she feels well today just a little tired. OBJECTIVE PHYSICAL EXAMINATION: VITAL SIGNS: Please see below. GENERAL: Awake and alert. Appears in no acute distress. Lying comfortably in bed receiving dialysis HEENT: Atraumatic normocephalic. Trachea is midline. Mucous membranes are pink and moist. Eyes are nonicteric CARDIOVASCULAR: Normal S1, S2. Regular rate and rhythm. No clicks rubs, or murmurs. RESPIRATORY: clear vesicular breath sounds bilaterally. Good respiratory effort. No wheezes, rhonci, or rales ABDOMINAL: Soft, nondistended. Nontender to palpation of all 4 quadrants. No rebound tenderness or guarding. Positive bowel sounds throughout EXTREMITIES: No edema. 2+ radial and posterior tibial pulses bilaterally. Dialysis lines connected to right arm fistula NEUROLOGICAL: No focal neurological deficits PSYCHOLOGICAL: Mood and affect appear normal LABORATORY DATA, IMAGING STUDIES, MICROBIOLOGY: Please see below. DVT prophylaxis ordered?: Yes ASSESSMENT AND PLAN: Patient is an 78 year old female with a past medical history significant for ESRD on hemodialysis, hyperlipidemia, diabetes, CAD s/p [place], history of TIA, GERD, COPD who was recently admitted at [facility] from 01/13/19 to 01/21/19 for influenza and pneumonia. Prior to that admission she had a fall at home due to weakness on her right side and struck her right shoulder, right lateral chest wall and right side of the abdomen and was down on the floor unable to get up and was found by neighbors. She lives in a senior housing apartment complex At [facility] she was advised to go to rehab after hospitalization but the patient refused thinking that she was strong enough to manage by herself in her apartment. So she was discharged home. Since coming home she has continued to be extremely weak with severe body aches with extreme difficulty in ambulation. She also has been having nausea and dry heaves for the past 2 days and diarrhea for 2 days which she says seems to have stopped this am. She went to her routine HD today and on the way she was constantly sick in her stomach threw up 3 times and after reaching the HD unit she was extremely weak and could not get up by herself she was not feeling herself . The staff at the unit felt that she had altered mental status so she was sent to the ED for evaluation. She did not have her HD today. In the ED She had CT of head and CT cervical spine and Xray of right shoulder. There was no fracture or dislocation. She had a CXR also which showed pulmonary edema. She has not been able to keep anything down for the past 2 days. She is being admitted for intractable nausea and vomiting , unable to tolerate po intake with extreme generalized weakness and unable to ambulate. PROBLEMS: 1. Intractable Nausea and vomiting -Currently resolved. Likely secondary to acute gastritis after her recent hospitalization for pneumonia and influenza -Patient will be continued on Protonix, Zofran, and Carafate -Resolved 2. Generalized weakness/deconditioning -Patient has continued weakness and difficulty with ambulation. She has had a recent fall and continues to have soreness on the right side of her body which is improving. Her weakness and deconditioning are likely secondary to her recent influenza and pneumonia -Continue with PT -Awaiting placement. Likely Wednesday 3. ESRD on Hemodialysis -Patient presented with Chest x-ray suggestive of mild fluid overload. -Receiving maintenance hemodialysis. 4. Diastolic CHF Exacerbation -Patient received ECHO on 01/26 as shown above. EF of 50-55%. -Currently receiving Hemodialysis for fluid management -Continued on home lasix 5. Diabetic Nephrology -Continue Lispro and Levemir -Continue cymbalta and gabapentin 6. HTN -Continue Coreg 7. CAD w h/o [place] and CABG -Currently stable 8. Hyperlipidemia -Continue statin 9. COPD -Duonebs -Pulmicort 10. GERD -Protinix and carafate 11. DVT prophylaxis -Heparin SQ DISPOSITION: Discharge to [facility] anticipated for tomorrow A-FIB/CHADSVASC A-FIB History Current/History of A-Fib/PAF?: No VS, I&O, 24H, Fishbone Vital Signs/I&O Vital Signs Date Time Temp Pulse Resp B/P (MAP) Pulse Ox O2 Delivery O2 Flow Rate FiO2 02/04/19 06:00 97.8 78 16 159/64 (95) 98 02/03/19 21:20 Room Air 01/29/19 06:00 2.0 I&O- Last 24 Hours up to 6 AM 02/04/19 06:00 Intake Total 820 ml Output Total 650 ml Balance 170 ml Laboratory Data 24H LABS Laboratory Tests 2 02/03/19 12:04: Bedside Glucose (Misc Panel) 161H 02/03/19 17:08: Bedside Glucose (Misc Panel) 106 02/03/19 20:57: Bedside Glucose (Misc Panel) 177H 02/04/19 05:43: Anion Gap 8, Glomerular Filtration Rate 7.0L, Blood Urea Nitrogen 46H, Creatinine 6.10H, Sodium Level 138, Potassium Level 4.5, Chloride Level 102, Carbon Dioxide Level 28, Calcium Level 9.0 02/04/19 05:45: Nucleated Red Blood Cells % (auto) 0.0 02/04/19 06:28: Bedside Glucose (Misc Panel) 114H CBC/BMP Laboratory Tests 02/04/19 05:43 Calcium Level 9.0 02/04/19 05:45 Red Blood Count 3.14 L, Mean Corpuscular Volume 101.0 H, Mean Corpuscular Hemoglobin 31.8, Mean Corpuscular Hemoglobin Concent 31.5 L, Red Cell Distribution Width 14.1 Microbiology Microbiology 01/25/19 Respiratory Virus Panel (PCR) ([facility]) - Final, Complete GME ATTESTATION GME ATTESTATION My faculty preceptor for this patient encounter was physically present during the encounter and was fully available. All aspects of the patient interview, examination, medical decision making process, and medical care plan development were reviewed and approved by the faculty preceptor. The faculty preceptor is aware and concurs with the plan as stated in the body of this note and will attest to such by his/her cosignature. ATTENDING NOTE I saw and evaluated the patient. I agree with the findings and plan of care as documented in the resident's note YESSICA LANGSTON DO February 04, 2019 11:27 ROSA AUGUST MD February 05, 2019 16:40
[2019-02-04] MEDS: CALCITRIOL 0.25 MCG CAP (S0169) PO SCH (12:00)
[2019-02-04] MEDS: ASPIRIN 81 MG ENTERIC TAB PO SCH (12:00)
[2019-02-04] MEDS: PANTOPRAZOLE 40MG TAB (PROTONIX) PO SCH (12:01)
[2019-02-04] MEDS: CLOPIDOGREL 75 MG TAB PO SCH (12:02)
[2019-02-04] MEDS: CARVedilol 3.125 MG TAB PO SCH ×2 (12:02→21:13)
[2019-02-04] MEDS: traMADol 50 MG TAB PO SCH ×2 (12:04→21:13)
[2019-02-04] MEDS: ATORVASTATIN 20 MG TAB PO SCH (12:05)
[2019-02-04] MEDS: DULoxetine 30 MG CAP (CYMBALTA) PO SCH (12:06)
[2019-02-04] MEDS: FUROSEMIDE 40 MG TAB PO SCH ×2 (12:15→21:12)
[2019-02-04] MEDS: HEPARIN SOD (PORCINE) 5000 UNITS/ML VIAL SC SCH ×2 (12:42→21:14)
[2019-02-04] MEDS: LEVEMIR (INSULIN DETEMIR) 1 UNITS/0.01ML SC SCH ×2 (12:43→21:15)
[2019-02-04 14:00] VITALS: BP 120/54
[2019-02-04] MEDS: GABAPENTIN 100 MG CAP PO SCH (21:14)
[2019-02-04] MEDS: MIRALAX *UNIT DOSE* 17GM PACKET PO PRN (21:38)
[2019-02-04 22:00] VITALS: BP 136/57
[2019-02-05 01:34] VITALS: O2SAT 95
[2019-02-05] MEDS: ALBUTEROL SULFATE 2.5 MG/0.5 ML INH NEB SOLN NEB SCH ×2 (01:53→07:12)
[2019-02-05] MEDS: ACETAMINOPHEN 500 MG TAB PO PRN (04:41)
[2019-02-05 06:00] VITALS: BP 132/74
[2019-02-05 06:07] LABS: HEMATOCRIT 32.5 % (36.0-47.0); HEMOGLOBIN 10.2 g/dl (12.0-15.5); MEAN CORPUSCULAR HEMOGLOBIN 31.7 pg (27.0-33.0); MEAN CORPUSCULAR HGB CONC 31.4 g/dl (32.0-36.5); MEAN CORPUSCULAR VOLUME 100.9 fl (80.0-96.0); PLATELET COUNT, AUTOMATED 287 10^3/uL (150-450); RED BLOOD COUNT 3.22 10^6/uL (4.00-5.40); WHITE BLOOD COUNT 8.6 10^3/uL (4.0-10.0)
[2019-02-05 06:29] LABS: CALCIUM LEVEL 9.3 MG/DL (8.8-10.2); CREATININE FOR GFR 4.54 MG/DL (0.55-1.30); GLOMERULAR FILTRATION RATE 9.9 (>32); POTASSIUM SERUM 4.3 MEQ/L (3.5-5.1)
[2019-02-05] MEDS: BUDESONIDE 0.5 MG/2 ML INHALATION SUSPENSION INH SCH (07:12)
[2019-02-05 09:00] VITALS: O2SAT 96
[2019-02-05] MEDS: HEPARIN SOD (PORCINE) 5000 UNITS/ML VIAL SC SCH (09:02)
[2019-02-05] MEDS: CALCITRIOL 0.25 MCG CAP (S0169) PO SCH (09:02)
[2019-02-05] MEDS: DULoxetine 30 MG CAP (CYMBALTA) PO SCH (09:03)
[2019-02-05] MEDS: FUROSEMIDE 40 MG TAB PO SCH (09:03)
[2019-02-05] MEDS: ATORVASTATIN 20 MG TAB PO SCH (09:03)
[2019-02-05 09:04] VITALS: BP 132/53
[2019-02-05] MEDS: CARVedilol 3.125 MG TAB PO SCH (09:04)
[2019-02-05] MEDS: HumaLOG INSULIN (NovoLOG) PER UNIT SC SCH ×2 (09:05→12:47)
[2019-02-05] MEDS: LEVEMIR (INSULIN DETEMIR) 1 UNITS/0.01ML SC SCH (09:05)
[2019-02-05] MEDS: CLOPIDOGREL 75 MG TAB PO SCH (09:06)
[2019-02-05] MEDS: PANTOPRAZOLE 40MG TAB (PROTONIX) PO SCH (09:06)
[2019-02-05] MEDS: ASPIRIN 81 MG ENTERIC TAB PO SCH (09:06)
[2019-02-05] MEDS: traMADol 50 MG TAB PO SCH (09:07)
[2019-02-05] MEDS: ANALGESIC BALM CRM 120 GM TOP SCH (09:08)
--- NOTE | 2019-02-05 14:34 | IPN ---
DATE: 02/04/2019 SUBJECTIVE: The patient was seen and examined at the bedside. She just came back after getting hemodialysis done. She tolerated the hemodialysis procedure well. She is afebrile, hemodynamically stable. She denies any active complaints at this point. OBJECTIVE: VITAL SIGNS: Temperature is 97.5 degrees Fahrenheit, blood pressure 120/54, pulse is 80, respiratory of 70, saturating 98% on room air. Intake and output: Urine output recorded is 400 mL. Ultrafiltration with hemodialysis 1.5 liters. Weight in the bed scale was 72.1 kg today. PHYSICAL EXAMINATION: GENERAL: The patient is awake, alert, oriented times three, sitting up in the sofa, no apparent distress. HEAD AND NECK EXAM: Extraocular muscles intact. Pupils equally round and reactive to light. Mucous membranes are moist. Neck is supple. There is no JVD. CARDIOVASCULAR: S1, S2, regular rate. No edema of the bilateral lower extremities. RESPIRATORY: Chest is clear to auscultation bilaterally. Bilateral equal air entry. No rales or rhonchi. ABDOMEN: Soft. Positive bowel sounds. Nontender. No ascites. No organomegaly. MUSCULOSKELETAL: No clubbing or cyanosis. Pulses are 2+. DEVELOPMENTAL TRAINING COUNSELOR: No focal deficit. Power is 5/5 in all extremities. LABORATORY REVIEW: CBC showed WBC 7.3, hemoglobin is 10, platelets of 269. BMP showed sodium 138, potassium 4.5, chloride 102, bicarbonate 28, BUN 46, creatinine is 6.1. CURRENT INPATIENT MEDICATIONS: The patient's medications were all reviewed by me. There is no change in the medications today as compared with yesterday. ASSESSMENT/PLAN: 1. End-stage renal disease on hemodialysis. The patient was dialyzed today. She tolerated the hemodialysis procedure well. Ultrafiltration was 1.5 liters. Next hemodialysis session will be as outpatient on 02/06/2019. 2. Chronic diastolic congestive heart failure. Volume status is well optimized. Continue current dose of furosemide and carvedilol. 3. Anemia in end-stage renal disease. Hemoglobin level is optimal. Continue current dose of Aranesp. 4. Gastroesophageal reflux disease. Continue current dose of Protonix. DISPOSITION: The patient is optimized from nephrology standpoint to be discharged whenever she has a bed available at the rehabilitation place.
--- NOTE | 2019-02-05 15:24 | IPNPDOC ---
Date Seen The patient was seen on 02/05/19. Progress Note SUBJECTIVE: Patient was seen and examined this morning. She has no complaints and is doing quite well OBJECTIVE PHYSICAL EXAMINATION: VITAL SIGNS: Please see below. GENERAL: Awake and alert. Appears in no acute distress. Sitting in a chair comfortable she is conversant HEENT: Atraumatic normocephalic. Trachea is midline. Mucous membranes are pink and moist. CARDIOVASCULAR: Normal S1, S2. Regular rate and rhythm. No clicks rubs, or murmurs. RESPIRATORY: clear vesicular breath sounds bilaterally. Good respiratory effort. ABDOMINAL: Soft, nondistended. Nontender to palpation, Positive bowel sounds throughout EXTREMITIES: No edema. 2+ radial and posterior tibial pulses bilaterally. LABORATORY DATA, IMAGING STUDIES, MICROBIOLOGY: Please see below. DVT prophylaxis ordered?: Heparin ASSESSMENT AND PLAN: 79-year-old female with resolved nausea and vomiting PROBLEMS: 1. Intractable Nausea and vomiting: Resolved likely secondary to acute gastroenteritis after her recent hospitalization. Continue with Protonix over any Carafate at this time 2. Generalized weakness/deconditioning: She would benefit from placement she is being placed today 3. ESRD on Hemodialysis: Nephrology is greatly appreciated she is on her regular schedule of hemodialysis 4. Diastolic CHF Exacerbation : Status post fluid removal during hemodialysis where her fluid status is best optimize she's continued on Lasix 5. Diabetic Nephrology: She is on Cymbalta and gabapentin, she is on lispro Levemir sliding scale and hypoglycemic protocol for her diabetes 6. HTN: Controlled continue Coreg 7. Hyperlipidemia : Continue statin 8. COPD: Stable she is at her baseline respiratory status continue with Duonebs and Pulmicort 9. GERD : Protinix and carafate DISPOSITION: Patient is discharged to [facility] today please see previously dictated discharge summary for full details no changes to that discharge summary the patient remained in hospital awaiting transportation VS, I&O, 24H, Fishbone Vital Signs/I&O Vital Signs Date Time Temp Pulse Resp B/P (MAP) Pulse Ox O2 Delivery O2 Flow Rate FiO2 02/05/19 09:07 18 02/05/19 09:04 69 132/53 02/05/19 09:00 96 Room Air 02/05/19 06:00 97.4 I&O- Last 24 Hours up to 6 AM 02/05/19 06:00 Intake Total 1620 ml Output Total 1900 ml Balance -280 ml Laboratory Data 24H LABS Laboratory Tests 2 02/04/19 16:38: Bedside Glucose (Misc Panel) 190H 02/04/19 20:07: Bedside Glucose (Misc Panel) 117H 02/05/19 05:31: Nucleated Red Blood Cells % (auto) 0.0, Anion Gap 5L, Glomerular Filtration Rate 9.9L, Blood Urea Nitrogen 33H, Creatinine 4.54H, Sodium Level 137, Potassium Level 4.3, Chloride Level 102, Carbon Dioxide Level 30, Calcium Level 9.3 02/05/19 12:21: Bedside Glucose (Misc Panel) 145H CBC/BMP Laboratory Tests 02/05/19 05:31 Red Blood Count 3.22 L, Mean Corpuscular Volume 100.9 H, Mean Corpuscular Hemoglobin 31.7, Mean Corpuscular Hemoglobin Concent 31.4 L, Red Cell Distribution Width 14.1, Calcium Level 9.3 ROSA AUGUST MD February 05, 2019 15:24
--- NOTE | 2019-02-06 04:40 | IPN ---
DATE OF SERVICE: 02/05/2019 SUBJECTIVE: The patient is seen and examined this morning at the bedside. She denies any overnight events or issues. She was dialyzed yesterday with 1.5 liters of fluid removed without any issues. She is discharge pending. VITAL SIGNS: Temperature 97.4, pulse 66, respiratory rate 18, blood pressure 132/74 saturating 96% on room air. Intake yesterday was 1530. Dialysis yesterday removed 1500. Urine output yesterday was 600, net negative 570. Weight on the bed scale today is 71.9 kg. PHYSICAL EXAMINATION: GENERAL: The patient is seen sitting up edge of the bed, legs dangling. An elderly female smiling, awake, alert, and oriented times 3 in no apparent distress. Pupils are round and reactive to light. The tongue is moist. NECK: The neck is supple. Jugular veins are not elevated. CARDIAC: S1, S2. Regular rate. No edema of the bilateral lower extremities. RESPIRATORY: Chest is clear to auscultation bilaterally. Equal entry. No rales or rhonchi. ABDOMEN: The abdomen is soft. There are bowel sounds. There is no tenderness to palpation. No ascites. No appreciable organomegaly. MUSCULOSKELETAL: There is no edema in the lower extremities. She moves all four extremities on command. NEUROLOGIC: She is interactive, conversational and appropriate. LABORATORY DATA: White count 8.6, hemoglobin 10.2, platelets 287. Sodium 137, potassium 4.3, glucose 122. INPATIENT MEDICATIONS: Reviewed by myself and no change from prior. PROBLEMS: 1. End-stage renal disease on hemodialysis on a Wednesday, Wednesday and Wednesday schedule. The patient is discharge pending. Her next dialysis will be on Wednesday in the outpatient dialysis unit. Her electrolytes and volume status are acceptable. 2. Chronic diastolic congestive heart failure. Volume status is optimized. Continue with fluid removal on hemodialysis and she is also on her usual Lasix as well as low dose beta shelbi. 3. Hypertension with end-stage renal disease on hypertensive heart disease. Continue with low dose beta shelbi. Blood pressures are at goal. 4. Anemia on end-stage renal disease. Hemoglobin is 10.2 which is at target and she continues on Aranesp. 5. Gastroesophageal reflux disease. She continues on Protonix and I see that the Carafate was already appropriately discontinued. Her aluminum level returned back appropriate.
== END 2019-02-05 13:10 | DRG 391 ==
LOC: M ED 11:45 → EDBD 11:45 → M ED INP 16:54 → M MSPAV 18:40
PROVIDERS: ADMIT Internal Medicine Nephrology; ATTEND Internal Medicine
PROC: 5A1D70Z Performance of Urinary Filtration, Intermittent, Less than 6 Hours Per Day (ICD-10-PCS; principal; 2019-01-26)
DX: K29.00 Acute gastritis without bleeding (principal); N18.6 End stage renal disease; I50.31 Acute diastolic (congestive) heart failure; I13.2 Hypertensive heart and chronic kidney disease with heart failure and with stage 5 chronic kidney disease, or end stage renal disease; N25.81 Secondary hyperparathyroidism of renal origin; E11.40 Type 2 diabetes mellitus with diabetic neuropathy, unspecified; I25.10 Atherosclerotic heart disease of native coronary artery without angina pectoris; I25.2 Old myocardial infarction; Z95.1 Presence of aortocoronary bypass graft; J44.9 Chronic obstructive pulmonary disease, unspecified; K21.9 Gastro-esophageal reflux disease without esophagitis; E78.5 Hyperlipidemia, unspecified; F32.9 Major depressive disorder, single episode, unspecified; Z86.73 Personal history of transient ischemic attack (TIA), and cerebral infarction without residual deficits; Z85.828 Personal history of other malignant neoplasm of skin; Z79.82 Long term (current) use of aspirin; Z79.899 Other long term (current) drug therapy; Z88.5 Allergy status to narcotic agent; Z88.0 Allergy status to penicillin; Z88.2 Allergy status to sulfonamides; Z88.8 Allergy status to other drugs, medicaments and biological substances; M54.2 Cervicalgia; M54.5 Low back pain; D63.1 Anemia in chronic kidney disease; I34.0 Nonrheumatic mitral (valve) insufficiency

== ENCOUNTER 2019-04-12 15:13 | Inpatient (IN) | payer MEDICAID, MEDICARE, OTHER ==
[~2019-04-12] VITALS: Ht 167.6 cm; Wt 75.3 kg
[~2019-04-12 15:13] MED LIST changes: +ATOR40TA75 PO; +FAMO20TA5 PO; +MIRA3350 PO; +VITAD1000T PO; +ZOFR4TAB16 PO
--- NOTE | 2019-04-12 16:15 | REP ---
CHEST, TWO VIEWS: Two views of the chest are performed and compared to prior study of 01/25/2019. There is cardiomegaly. Chronic interstitial changes are again seen. I see no evidence of acute infiltrate. There is calcification of the thoracic aorta. Multiple sternal wires are present. There are degenerative changes of the spine. IMPRESSION: Cardiomegaly. Chronic interstitial densities in the lungs. No new infiltrate. Electronically Signed by Mando Aguero MD 04/14/2019 12:35 P
[2019-04-12 16:54] LABS: BASO % 0.3 % (0.0-1.0); EOS # 0.2 10^3/uL (0.0-0.50); EOS % 1.7 % (0.0-3.0); HEMATOCRIT 36.5 % (36.0-47.0); HEMOGLOBIN 11.5 g/dl (12.0-15.5); LYMPH # 1.5 10^3/uL (1.5-4.5); MEAN CORPUSCULAR HEMOGLOBIN 32.5 pg (27.0-33.0); MEAN CORPUSCULAR HGB CONC 31.5 g/dl (32.0-36.5); MEAN CORPUSCULAR VOLUME 103.1 fl (80.0-96.0); MONO % 8.4 % (0.0-5.0); NEUTROPHILS # 8.7 10^3/uL (1.8-7.7); NEUTROPHILS % 76.1 % (36.0-66.0); PLATELET COUNT, AUTOMATED 252 10^3/uL (150-450); RED BLOOD COUNT 3.54 10^6/uL (4.00-5.40); WHITE BLOOD COUNT 11.5 10^3/uL (4.0-10.0)
[2019-04-12] MEDS ORDERED: LIDOCAINE 2% 5ML JELLY UROJET TOP ONE (17:00)
[2019-04-12 17:04] LABS: INR 1.01
--- NOTE | 2019-04-12 17:13 | REP ---
CT BRAIN WITHOUT CONTRAST: 04/12/2019. Comparison: 01/25/2019, 11/24/2016. Clinical history: Syncope. Findings: Soft-tissue and bone windows are reviewed for each slice level. Lateral ventricles are midline, symmetric, dilated in proportion to the diffuse cerebral atrophy and all of this unchanged. There is heterogeneous low attenuation white matter throughout the cerebral hemispheres, unchanged. Basal ganglia is symmetric. Atrophy diffuse but greatest in the temporal lobes. There is no intra or extra-axial hemorrhage, mass, mass effect or edema. Aguero-white junction maintained. Cortical stripe preserved. Brainstem is intact. Cerebellum shows minimal atrophy. Basal cisterns intact. Visualized mastoids and sinuses were clear. The calvarium and skull base show no fracture or focal lesion. There are atherosclerotic calcifications in the carotid siphons as before. Impression: 1. Chronic small vessel white matter ischemic changes of aging in both hemispheres, stable. No acute infarct. 2. No intracranial hemorrhage, mass, mass effect or edema. 3. Cortical atrophy and ventriculomegaly in proportion and unchanged from 01/25/2019.4. No fracture or focal lesion of the skull base or calvarium. Electronically Signed by Michael Rico MD 04/13/2019 08:15 A
[2019-04-12 17:23] LABS: CALCIUM LEVEL 8.6 MG/DL (8.8-10.2); CK-MB VALUE MASS 4.1 NG/ML (<3.6); CREATININE FOR GFR 3.44 MG/DL (0.55-1.30); FREE T4 0.86 NG/DL (0.76-1.46); GLOMERULAR FILTRATION RATE 13.6 (>32); MAGNESIUM LEVEL 2.3 MG/DL (1.8-2.4); MB/CK RELATIVE INDEX 2.32 (< OR =4); POTASSIUM SERUM 4.1 MEQ/L (3.5-5.1); THYROID STIMULATING HORMONE 2.76 uIU/ML (0.358-3.740); TROPONIN I 0.08 NG/ML (< 0.10)
--- NOTE | 2019-04-12 18:12 | REPVR ---
EXAM: CT Abdomen and Pelvis Without Contrast EXAM DATE/TIME: 04/12/2019 5:23 PM CLINICAL HISTORY: 79 years old, female; Abdominal pain; Localized; Right; Additional info: Pain right side TECHNIQUE: Imaging protocol: Axial computed tomography images of the abdomen and pelvis without contrast. Coronal and sagittal reformatted images were created and reviewed. Radiation optimization: All CT scans at this facility use at least one of these dose optimization techniques: automated exposure control; mA and/or kV adjustment per patient size (includes targeted exams where dose is matched to clinical indication); or iterative reconstruction. COMPARISON: CT ABD PELVIS W/O CONTRAST 11/25/2016 2:59 AM FINDINGS: Liver: Noncontrast liver shows no obvious lesion. Gallbladder and bile ducts: Gallbladder is present and shows no evidence of gallstone. Pancreas: Noncontrast pancreas shows no obvious mass or adjacent fluid. Spleen: Noncontrast spleen shows no obvious focal deformity. Adrenals: Adrenal glands are normal in appearance. Kidneys and ureters: Kidneys are unremarkable aside from nonobstructive punctate right renal calculi. Stomach and bowel: No evidence of small bowel obstruction. No evidence of acute diverticulitis. Moderate pattern of colonic stool is present. Appendix: Appendix is not seen. No RLQ inflammation to suggest appendicitis. Intraperitoneal space: No pneumoperitoneum. Vasculature: Atherosclerotic change present in the aorta, without aneurysm. Lymph nodes: No enlarged lymph nodes. Bladder: Jarvis catheter is present within the bladder. Reproductive: Uterus appears myomatous. Bones/joints: Degenerative changes are seen in the lumbar spine with disc height loss, endplate osteophytes and hypertrophic facet arthropathy. Soft tissues: Unremarkable. Other findings: Limited evaluation without enteric or IV contrast. IMPRESSION: 1. No acute surgical or inflammatory intra-abdominal or pelvic process. 2. Right punctate nonobstructive renal calculi. No hydronephrosis or ureter stone. Electronically signed by: Modesto Perez On 04/12/2019 18:12:03 PM
--- NOTE | 2019-04-12 18:14 | REPVR ---
EXAM: CT Chest Without Contrast EXAM DATE/TIME: 04/12/2019 5:23 PM CLINICAL HISTORY: 79 years old, female; Other: Right sided pain; Additional info: Pain right side TECHNIQUE: Imaging protocol: Axial computed tomography images of the chest without intravenous contrast. Coronal and sagittal reformatted images were created and reviewed. Radiation optimization: All CT scans at this facility use at least one of these dose optimization techniques: automated exposure control; mA and/or kV adjustment per patient size (includes targeted exams where dose is matched to clinical indication); or iterative reconstruction. COMPARISON: CR Chest, 2 view PA, Lat 04/12/2019 3:45 PM FINDINGS: Limited exam without IV contrast and slightly limited by motion. Aorta shows atherosclerotic change and ectasia. No focal aneurysm. Atherosclerotic calcifications in the coronary vessels. Calcification of the mitral valve annulus noted. Small mediastinal lymph nodes measure up to 13 mm short axis. No pleural effusion or pneumothorax. Multi-chamber cardiac dilatation is noted. No evidence of acute pulmonary edema. No suspicious lung mass or air space process. No central endobronchial lesion. Atelectasis is present at the lung bases. Multi-level, age-related thoracic degenerative disc disease is present. IMPRESSION: No acute or concerning focal thoracic abnormality. Atherosclerotic change and ectasia of the aorta. Prominent mediastinal lymphadenopathy measuring up to 13 mm short axis. No bulky adenopathy Electronically signed by: Modesto Perez On 04/12/2019 18:14:07 PM
[2019-04-12] MEDS ORDERED: AMLO10TA5 PO ×2 (18:44→21:30)
[2019-04-12] MEDS ORDERED: LASI80TA3 PO (18:44)
[2019-04-12] MEDS ORDERED: FLUT1BLS5 IH (18:44)
[2019-04-12] MEDS ORDERED: VELT1POW PO (18:44)
[2019-04-12] MEDS ORDERED: ACETAMINOPHEN TAB 650MG DOSE (2X325MG) As Ordered ONE (18:51)
[2019-04-12] MEDS ORDERED: ACETAMINOPHEN TAB 650MG DOSE (2X325MG) PO ONE (19:15)
[2019-04-12] MEDS ORDERED: CIPROFLOXACIN 200 MG in APPROPRIATE DILUENT 1 EA IV ONE (19:45)
[2019-04-12] MEDS ORDERED: LIDO2.5C15 TOP (21:30)
[2019-04-12] MEDS ORDERED: PROAAER10 INH (21:30)
[2019-04-12] MEDS ORDERED: ADV250INH INH (21:30)
[2019-04-12] MEDS ORDERED: CALC1CAP31 PO (21:30)
[2019-04-12] MEDS ORDERED: FURO80TA2 PO (21:30)
[2019-04-12] MEDS ORDERED: TRAM50TA2 PO (21:30)
[2019-04-12] MEDS ORDERED: MAALOX 30 ML SUSP *UDC PO PRN (22:00)
[2019-04-12] MEDS ORDERED: DEXTROSE 50% 50 ML SYRINGE IV PRN (22:00)
[2019-04-12] MEDS ORDERED: ONDANSETRON 4MG/2ML VIAL (J2405) IV PRN (22:00)
[2019-04-12] MEDS ORDERED: GLUCOSE 4 GM CHEW TABLET PO PRN (22:00)
[2019-04-12] MEDS ORDERED: MOM 30ML SUSPENSION UDC PO PRN (22:00)
[2019-04-12] MEDS ORDERED: GLUCAGON FOR INJ 1 MG VIAL (J1610) SC PRN (22:00)
[2019-04-12] MEDS ORDERED: MIRALAX *UNIT DOSE* 17GM PACKET PO PRN (22:00)
[2019-04-12] MEDS ORDERED: ALBUTEROL SULFATE 2.5 MG/0.5 ML INH NEB SOLN NEB PRN (22:00)
--- NOTE | 2019-04-12 22:37 | HPEPDOC ---
General Date of Admission 04.12.19 Date of Service: Apr 12, 2019 Chief Complaint The patient is a 79-year-old female admitted with a reason for visit of Syncope. History of Present Illness 79f lives alone in senior apartments, hx of ESRD on HD, DM, CAD, TIA who was sent in from dialysis today. Pt reports she was walking to the bathroom last night, she had put on some old flip flops that she hasnt worn in a while. Her feet however are more swollen than usual and the flip flops were not fitting well. She was worried they were going to make her trip so half way to the bathroom she stopped and tried to remove the flip flops while standing. When she bent over to do this she became dizzy and fell on her right side. She did not lose consciousness. She denies chest pain, palpitations, feeling ill. She has noted dyspnea on exertion chronically, worsening edema, and less urine output over the past two days. Since falling she has had severe pain in the ribs on her right side, otherwise she has been feeling well. She went to dialysis today where they felt she needed to be evaluated in the ER. They did reportedly complete dialysis today. a complete ROS was performed and negative except as documented above Home Medications Scheduled Amlodipine Besylate (Amlodipine Besylate) 10 Mg Tablet, 10 MG PO DAILY, (Reported) Aspirin (Aspirin EC) 81 Mg Tab, 81 MG PO DAILY, (Reported) Atorvastatin Calcium (Atorvastatin Calcium) 40 Mg Tablet, 40 MG PO DAILY, (Reported) Calcitriol (Calcitriol) 0.25 Mcg Capsule, 0.25 MCG PO BID, (Reported) Carvedilol (Coreg) 6.25 Mg Tab, 6.25 MG PO DAILY, (Reported) Clopidogrel Bisulfate (Plavix) 75 Mg Tab, 75 MG PO DAILY, (Reported) Duloxetine Hcl (Cymbalta) 30 Mg Cap, 30 MG PO DAILY, (Reported) Famotidine (Famotidine) 20 Mg Tablet, 20 MG PO BID, (Reported) Furosemide (Furosemide) 80 Mg Tablet, 80 MG PO BID, (Reported) Gabapentin (Gabapentin) 100 Mg Capsule, 100 MG PO BID, (Reported) Insulin Glargine (Lantus) 1 Units/0.01 Ml Susp, 20 UNITS SC QHS, (Reported) Insulin Lispro (Humalog Kwikpen U-100) 100 Unit/Ml Inj, 6 UNITS SC AC, (Reported) Lidocaine/Prilocaine (Lidocaine-Prilocaine Cream) 2.5%/2.5% Cream..g., 1 DOSE TOP 3XW, (Reported) 1 TO 2 HOURS BEFORE DIALYSIS ON WEDNESDAY, WEDNESDAY AND WEDNESDAY Patiromer Calcium Sorbitex (Veltassa) 8.4 Gm Powd.pack, 8.4 GM PO QWEEK, (Reported) SUNDAYS Salmeterol/Fluticasone (Advair 250-50 Diskus) 1 Each Blst.w.dev, 1 PUFF INH BID, (Reported) Vitamin D (Vitamin D3) 1,000 Unit Tablet, 2,000 UNITS PO DAILY, (Reported) Scheduled PRN Albuterol Sulfate (Proair Hfa) 8.5 Gm Hfa.aer.ad, 2 PUFF INH Q4H PRN for SOB/WHEEZING, (Reported) Ondansetron HCl (Zofran) 4 Mg Tablet, 4 MG PO Q6H PRN for NAUSEA OR VOMITING, (Reported) Polyethylene Glycol 3350 (Miralax) 119 Gm Powder, 17 GM PO DAILY PRN for CONSTIPATION, (Reported) Tramadol HCl (Tramadol HCl) 50 Mg Tablet, 50 MG PO BID PRN for PAIN, (Reported) Allergies Coded Allergies: ceftriaxone (Verified Allergy, Severe, SOB, hives,, 01/25/19) Penicillins (Verified Allergy, Intermediate, unknown , 01/25/19) codeine (Verified Allergy, Intermediate, hives/ rash, 01/25/19) nitroglycerin (Verified Allergy, Intermediate, unknown , 01/25/19) Sulfa (Sulfonamide Antibiotics) (Verified Adverse Reaction, Intermediate, dizziness, 01/25/19) Past Medical History Medical History as above Surgical History as above Family History Significant Family History: Noncontributory Social History * Smoker: former Smoker Alcohol: Denies Drugs: denies A-FIB/CHADSVASC A-FIB History Current/History of A-Fib/PAF?: No Current PO Anticoag Therapy: No Age/Risk Factor Scoring CHADSVASC: CHADSVASC Response (Comments) Value Age Risk Factor Age >/= 75 years old 2 Gender Risk Factor Female 1 Hx of CHF Yes 1 Hx of HTN Yes 1 Hx of Stroke/TIA/or VTE No 0 Hx of Diabetes Yes 1 Hx of Vascular Disease No 0 Total 6 Treatment Treatment ordered: NONE Physical Examination General Exam: Positive: Alert, Cooperative, No Acute Distress Eye Exam: Positive: PERRLA, Conjunctiva & lids normal, EOMI; Negative: Sclera icteric ENT Exam: Positive: Atraumatic, Mucous membr. moist/pink, Pharynx Normal Neck Exam: Positive: Supple; Negative: JVD, thyromegaly Chest Exam: Positive: Clear to auscultation, Diminished Heart Exam: Positive: Rate Normal, Regular Rhythm, Normal S1, Normal S2; Negative: Murmurs, Rubs Abdomen Exam: Positive: Normal bowel sounds, Soft; Negative: Tenderness, Hepatospenomegaly Extremity Exam: Positive: Edema Skin Exam: Positive: Nl turgor and temperature, Other skin issue (bruising over right ribs); Negative: Breakdown, Lesion Neuro Exam: Positive: Normal Gait, Normal Speech, Cranial Nerves 3-12 NL, Reflexes 2+ Psych Exam: Positive: Mental status NL, Mood NL, Oriented x 3 Vital Signs Vital Signs Date Time Temp Pulse Resp B/P (MAP) Pulse Ox O2 Delivery O2 Flow Rate FiO2 04/12/19 22:01 156/67 (96) 04/12/19 22:00 72 18 94 Room Air 04/12/19 15:15 98.2 Laboratory Data Labs 24H Laboratory Tests 2 04/12/19 15:30: Bedside Glucose (Misc Panel) 128H 04/12/19 16:40: Immature Granulocyte % (Auto) 0.5, White Blood Count 11.5H, Red Blood Count 3.54L, Hemoglobin 11.5L, Hematocrit 36.5, Mean Corpuscular Volume 103.1H, Mean Corpuscular Hemoglobin 32.5, Mean Corpuscular Hemoglobin Concent 31.5L, Red Cell Distribution Width 14.7H, Platelet Count 252, Neutrophils (%) (Auto) 76.1H, Lymphocytes (%) (Auto) 13.0L, Monocytes (%) (Auto) 8.4H, Eosinophils (%) (Auto) 1.7, Basophils (%) (Auto) 0.3, Neutrophils # (Auto) 8.7H, Lymphocytes # (Auto) 1.5, Monocytes # (Auto) 1.0H, Eosinophils # (Auto) 0.2, Basophils # (Auto) 0.0, Nucleated Red Blood Cells % (auto) 0.0, Prothrombin Time 13.0, Prothromb Time International Ratio 1.01, Activated Partial Thromboplast Time 27.0, Anion Gap 9, Glomerular Filtration Rate 13.6L, Blood Urea Nitrogen 27H, Creatinine 3.44H, Sodium Level 138, Potassium Level 4.1, Chloride Level 101, Carbon Dioxide Level 28, Calcium Level 8.6L, Total Creatine Kinase 177, Magnesium Level 2.3, Creatine Kinase MB 4.1H, Creatine Kinase MB Relative Index 2.32, Troponin I 0.08, Thyroid Stimulating Hormone (TSH) 2.760, Free Thyroxine 0.86 04/12/19 17:21: Urine Color YELLOW, Urine Appearance TURBIDH, Urine pH 8.0, Urine Specific [place] 1.009, Urine Protein 3+H, Urine Glucose (UA) NEGATIVE, Urine Ketones TRACEH, Urine Blood 1+H, Urine Nitrite NEGATIVE, Urine Bilirubin NEGATIVE, Urine Urobilinogen 0.2, Urine Leukocyte Esterase 2+H, Urine WBC (Auto) 59H, Urine RBC (Auto) 5H, Urine Hyaline Casts (Auto) 0, Urine Bacteria (Auto) 3+H, Urine Squamous Epithelial Cells 0, Urine Amorphous Sediment MODERATEH, Urine Sperm (Auto) CBC/BMP Laboratory Tests 04/12/19 16:40 Red Blood Count 3.54 L, Mean Corpuscular Volume 103.1 H, Mean Corpuscular Hemoglobin 32.5, Mean Corpuscular Hemoglobin Concent 31.5 L, Red Cell Distribution Width 14.7 H, Neutrophils (%) (Auto) 76.1 H, Lymphocytes (%) (Auto) 13.0 L, Monocytes (%) (Auto) 8.4 H, Eosinophils (%) (Auto) 1.7, Basophils (%) (Auto) 0.3, Neutrophils # (Auto) 8.7 H, Lymphocytes # (Auto) 1.5, Monocytes # (Auto) 1.0 H, Eosinophils # (Auto) 0.2, Basophils # (Auto) 0.0, Calcium Level 8.6 L, Total Creatine Kinase 177 Microbiology Microbiology 04/12/19 Urine Culture, Received Pending Assessment/Plan 79f p/w fall fall seems to be mechanical orthostatic vs ok no fracture noted on cxr or ct tylenol and tramadol prn pain ESRD dialysed today plans to dc in am if not will need nephrology eval inpatient to continue hd continue calcitriol renal diet uti f/u culture continue renally dosed cipro dm diabetic diet finger sticks and sliding scale correction premeal and basal ordered Plan / VTE VTE Prophylaxis Ordered?: Yes CHITRA SOLOMON MD Apr 12, 2019 22:37
[2019-04-12 23:20] VITALS: BP 142/62
[2019-04-13] MEDS: CALCITRIOL 0.25 MCG CAP (S0169) PO SCH ×3 (00:17→20:55)
[2019-04-13] MEDS: GABAPENTIN 100 MG CAP PO SCH ×3 (00:18→20:56)
[2019-04-13] MEDS: FUROSEMIDE 80 MG TAB PO SCH ×3 (00:18→20:56)
[2019-04-13] MEDS: FAMOTIDINE 20 MG TAB PO SCH ×3 (00:18→20:56)
[2019-04-13] MEDS: LEVEMIR (INSULIN DETEMIR) 1 UNITS/0.01ML SC SCH ×2 (00:19→20:56)
[2019-04-13] MEDS: CIPROFLOXACIN 250 MG TAB PO SCH (05:41)
[2019-04-13] MEDS: traMADol 50 MG TAB PO PRN (05:42)
[2019-04-13 05:44] VITALS: BP 142/62
[2019-04-13 06:00] VITALS: BP 138/62
[2019-04-13 06:03] LABS: HEMATOCRIT 33.4 % (36.0-47.0); HEMOGLOBIN 10.6 g/dl (12.0-15.5); MEAN CORPUSCULAR HEMOGLOBIN 33.3 pg (27.0-33.0); MEAN CORPUSCULAR HGB CONC 31.7 g/dl (32.0-36.5); PLATELET COUNT, AUTOMATED 223 10^3/uL (150-450); RED BLOOD COUNT 3.18 10^6/uL (4.00-5.40); WHITE BLOOD COUNT 5.9 10^3/uL (4.0-10.0)
[2019-04-13 06:48] LABS: CALCIUM LEVEL 8.4 MG/DL (8.8-10.2); CREATININE FOR GFR 4.21 MG/DL (0.55-1.30); GLOMERULAR FILTRATION RATE 10.8 (>32)
[2019-04-13] MEDS: HumaLOG INSULIN (NovoLOG) PER UNIT SC SCH ×5 (07:30→17:36)
--- NOTE | 2019-04-13 07:42 | ECGEPIP ---
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
[2019-04-13] MEDS: ADVAIR HFA 115/21MCG INHALER INH SCH ×2 (07:55→21:00)
[2019-04-13] MEDS: HEPARIN SOD (PORCINE) 5000 UNITS/ML VIAL SC SCH ×2 (08:46→20:55)
[2019-04-13] MEDS: DULoxetine 30 MG CAP (CYMBALTA) PO SCH (08:48)
[2019-04-13] MEDS: ASPIRIN 81 MG ENTERIC TAB PO SCH (08:48)
[2019-04-13] MEDS: VITAMIN D 1,000 INTERNATIONAL UNITS TABLET PO SCH (08:48)
[2019-04-13] MEDS: DOCUSATE SODIUM 100 MG CAP PO SCH ×2 (08:49→20:56)
[2019-04-13] MEDS: CLOPIDOGREL 75 MG TAB PO SCH (08:50)
[2019-04-13] MEDS: CARVedilol 6.25 MG TAB PO SCH (08:50)
[2019-04-13] MEDS: ATORVASTATIN 20 MG TAB PO SCH (08:51)
[2019-04-13] MEDS: amLODIPine 10 MG TAB PO SCH (08:51)
[2019-04-13] MEDS: ACETAMINOPHEN TAB 650MG DOSE (2X325MG) PO PRN ×3 (12:00→20:55)
[2019-04-13 14:00] VITALS: BP 126/50
--- NOTE | 2019-04-13 17:45 | CR ---
DATE OF CONSULTATION: 04/13/2019 CONSULTATION REPORT FOR: Jose Gibbons MD REASON FOR CONSULTATION: To assist in the management of end-stage renal disease. HISTORY OF PRESENT ILLNESS: Mrs. Loco is an 79-year-old female with multiple chronic medical problems including history of diabetes, hypertension, coronary artery disease, prior history of transient ischemic attack (TIA), congestive heart failure, anemia and end-stage renal disease. She has been on maintenance hemodialysis on Wednesday, Wednesday and Wednesday schedule. Prior to coming to dialysis, she fell at home and injured her right chest where she has a big bruise. She was in dialysis yesterday and had a syncopal episode during dialysis without any evidence of persistent hypotension. She was very weak and vague after she woke up. She was sent to the emergency room and got admitted. She did complete her dialysis treatment prior to coming to the ER. She did not have any loss of consciousness when she fell at home. However, she did have it for a prolonged period of time during dialysis. PAST MEDICAL AND SURGICAL HISTORY: Significant for: 1. Longstanding diabetes. 2. Hypertension. 3. Coronary artery disease. 4. Congestive heart failure. 5. Anemia. 6. End-stage renal disease. 7. Prior history of transient ischemic attack (TIA). 8. Hyperlipidemia. 9. Secondary hyperparathyroidism. 10. Peripheral neuropathy. PAST SURGICAL HISTORY: Significant for arteriovenous (AV) fistula creation. MEDICATIONS: Her home medications include: - amlodipine 10 mg daily - aspirin 81 mg daily - atorvastatin 40 mg daily - calcitriol 0.25 mcg daily - Carvedilol 6.25 mg twice a day - Plavix 75 mg daily - Cymbalta 30 mg daily - famotidine 20 mg twice a day - furosemide 80 mg twice a day - gabapentin 1000 mg twice a day - Lantus insulin 20 units at bedtime - Humalog insulin per sliding scale - Veltassa 8.4 grams once a week - Advair Diskus 250/50 one inhalation twice a day - vitamin D 1000 units two tablets daily - albuterol inhaler as needed - Zofran 4 mg as needed for nausea - tramadol 50 mg twice a day as needed for pain PERSONAL AND SOCIAL HISTORY: The patient is a former smoker. She quit smoking several years ago. She has no history of alcohol or drug use. FAMILY HISTORY: Negative for end-stage renal disease. REVIEW OF SYSTEMS: She denies any fever or chills. She has been feeling somewhat weak. She fell at home and has injured right chest wall with bruising and severe pain. She feels that she has a broken rib. Ears, nose and throat are unremarkable. Cardiovascular system is significant for coronary artery disease and history of congestive heart failure. Respiratory system is significant for pleuritic-type of chest pain on the right side. She is very sore to move. She fell at home and injured right chest wall and has large area of ecchymosis. Gastrointestinal (GI) system is significant for history of nausea. She denies any vomiting or diarrhea at present. Genitourinary () system is negative for dysuria or hematuria. Endocrine system is significant for diabetes and secondary hyperparathyroidism. Psychosocial system is significant for depression. Neurological system is significant for prior transient ischemic attack (TIA) and peripheral neuropathy. She had an episode of syncope during dialysis yesterday. Hematological system is significant for anemia of chronic kidney disease. She is not on any anticoagulation. PHYSICAL EXAMINATION: At the time of my visit this morning, the patient is awake and at about her baseline mentation. Temperature 97.8 degrees Fahrenheit, heart rate 74 per minute and respiratory rate 16 per minute. Blood pressure 138/62 mmHg and oxygen saturation 97% on room air. Head is atraumatic. Neck is supple and without jugular venous distention (JVD) or thyroid enlargement. Ears, nose and throat are unremarkable. Heart sounds are regular. Lungs with diminished breath sounds at right base. She has a large area of ecchymosis on right lateral chest wall with marked soreness and tenderness. Abdomen is soft and nontender. Bowel sounds are normal. Extremities have no cyanosis or clubbing. Left arm arteriovenous (AV) fistula is patent. Neurologically, she is awake and at about her baseline mentation without a focal deficit at present. LABORATORY DATA: On admission, WBC count is 11.5, hemoglobin 11.5 and hematocrit 36.5. Today, WBC count 5.9, hemoglobin 10.6 and hematocrit 33.4. Platelets 223. Sodium 138, potassium 4.0, CO2 28, BUN 32 and creatinine 4.21. Calcium 8.4. Urinalysis showed 2+ leukocyte esterase, 59 WBCs, and 5 RBCs. Urine looked turbid with moderate amorphous sediment. Urine culture is still pending. She had a head CT scan which did not show any acute infarct or bleed. CT scan of abdomen and pelvis was unremarkable for any acute pathology. CT scan of chest was done which did not show any acute infarct, effusion or infiltrate. She did have some mediastinal lymphadenopathy. PROBLEMS: 1. End-stage renal disease. The patient is regularly dialyzed on Wednesday, Wednesday and Wednesday schedule. She did complete her dialysis treatment prior to admission yesterday. We will schedule her dialysis tomorrow. 2. Anemia. Her anemia is mild and stable and I do not feel that she has any active bleeding. At this point, we will watch and repeat her complete blood count (CBC) tomorrow. 3. Urinary tract infection (UTI). She probably has a UTI which I would recommend to treat with broad-spectrum antibiotic pending urine culture. She does have a history of prior urinary tract infections. 4. Syncope. She did fall at home prior to dialysis and then had syncope during dialysis. At this point, she seems to be at her baseline mentation. CT scan of head was negative for any acute infarct. Further workup as per hospitalist service. Thank you for involving me in the care of Mrs. Loco. I will follow her along with you.
[2019-04-13 20:01] VITALS: BP 147/54
[2019-04-14] MEDS: ACETAMINOPHEN TAB 650MG DOSE (2X325MG) PO PRN ×3 (04:02→23:26)
[2019-04-14] MEDS: CIPROFLOXACIN 250 MG TAB PO SCH (06:07)
[2019-04-14 06:45] VITALS: BP 145/60
[2019-04-14] MEDS: DOCUSATE SODIUM 100 MG CAP PO SCH ×2 (06:56→21:51)
[2019-04-14] MEDS: CALCITRIOL 0.25 MCG CAP (S0169) PO SCH ×2 (06:56→21:50)
[2019-04-14] MEDS: ASPIRIN 81 MG ENTERIC TAB PO SCH (06:56)
[2019-04-14] MEDS: ATORVASTATIN 20 MG TAB PO SCH (06:56)
[2019-04-14] MEDS: DULoxetine 30 MG CAP (CYMBALTA) PO SCH (06:56)
[2019-04-14] MEDS: amLODIPine 10 MG TAB PO SCH (06:56)
[2019-04-14] MEDS: CLOPIDOGREL 75 MG TAB PO SCH (06:57)
[2019-04-14] MEDS: CARVedilol 6.25 MG TAB PO SCH (06:57)
[2019-04-14] MEDS: GABAPENTIN 100 MG CAP PO SCH ×2 (06:59→21:51)
[2019-04-14] MEDS: FUROSEMIDE 80 MG TAB PO SCH ×2 (06:59→21:51)
[2019-04-14] MEDS: FAMOTIDINE 20 MG TAB PO SCH ×2 (06:59→21:51)
[2019-04-14] MEDS: ADVAIR HFA 115/21MCG INHALER INH SCH ×2 (07:32→20:51)
[2019-04-14] MEDS: traMADol 50 MG TAB PO PRN ×2 (08:38→17:10)
[2019-04-14] MEDS: HumaLOG INSULIN (NovoLOG) PER UNIT SC SCH ×3 (08:39→17:09)
[2019-04-14] MEDS: VITAMIN D 1,000 INTERNATIONAL UNITS TABLET PO SCH (09:00)
[2019-04-14] MEDS: HEPARIN SOD (PORCINE) 5000 UNITS/ML VIAL SC SCH ×2 (09:00→21:50)
[2019-04-14] MEDS ORDERED: HEPARIN 1,000 UNITS/ML 10ML VIAL (FOR RADIOLOGY& DIALYSIS ONLY) IV ONE (09:45)
--- NOTE | 2019-04-14 17:51 | IPN ---
DATE: 04/14/2019 Mrs. Loco is seen this morning on her bedside. She reports significant pain in her right rib cage where she has trauma due to recent fall at home. She was admitted due to syncope during dialysis without any hypotension. She has been feeling well since admitted to the hospital other than the pain in her right rib cage. She has difficulty getting up and even turning in the bed. She denies any nausea, vomiting, fever or chills. PHYSICAL EXAMINATION: Temperature 97.3 degrees Fahrenheit, heart rate 68 per minute and respiratory rate 18 per minute. Blood pressure 145/60 mmHg and oxygen saturation 97% on room air. Head is atraumatic. Neck is supple and without jugular venous distention (JVD) or thyroid enlargement. Heart sounds are regular. Lungs with diminished breath sounds on right side. She has marked tenderness and bruising on the right lateral chest wall. Abdomen is soft and nontender. Bowel sounds are normal. Extremities have no cyanosis or clubbing. Neurologically, she is awake, alert and at her baseline mentation. PROBLEMS: 1. End-stage renal disease. The patient is due for dialysis today and will be dialyzed this afternoon. She did not have any new laboratories and her electrolytes were all within normal range yesterday. 2. Anemia. Her anemia has been stable with hemoglobin 10.6 yesterday and no new laboratories done today. We will continue to monitor her closely. 3. Hypertension. Blood pressure is well-controlled at present on current antihypertensive medications and no changes are being made today. 4. Diabetes. Her blood sugars have been very well-controlled here in the hospital with fingerstick blood sugar of 120 this morning. 5. Pain in right rib cage secondary to trauma of recent fall. She is in significant pain and has difficulty even turning in the bed. I have advised the nursing staff to position her in the bed and would recommend to continue with an analgesics as needed.
--- NOTE | 2019-04-14 19:07 | IPNPDOC ---
Text Note Date of Service The patient was seen on 04/14/19. NOTE This is an 79-year-old female who sustained a ground-level fall at home. She is a dialysis patient. She lives alone. Concern is raised for her ability to care for self. Physical exam Vital signs: Please see below HEENT: Neck is supple with no adenopathy or thyromegaly, oral mucosa is moist. Cardiovascular: Regular rate and rhythm, no appreciable murmur. Respiratory: Diminished air movement due to pain, there is bruising to the right lateral chest wall. Abdomen: Soft, nontender, nondistended. Extremities: No peripheral edema ASSESSMENT/PLAN: 1. Fall injury.This occurred at home. Concern is raised for her ability to care for self. PT and OT eval's were obtained as she may require placement versus home health services. Her mobility is limited by pain to her right rib cage. Images have been reviewed. There is no fracture. 2. End-stage renal disease--patient continues with her hemodialysis schedule. 3. Urinary tract infection.The patient had had a positive urinalysis. She had been placed on ciprofloxacin. Urine culture is positive for strep viridans. It is resistant to multiple agents. Additionally, patient has multiple allergies to penicillin and cephalosporin agents. We will consult with pharmacy services for Vanco dosing. VS,Fishbone, I+O VS, Fishbone, I+O Vital Signs Date Time Temp Pulse Resp B/P (MAP) Pulse Ox O2 Delivery O2 Flow Rate FiO2 04/14/19 17:45 18 04/14/19 06:56 67 145/60 04/14/19 06:45 97.3 97 04/12/19 22:46 Room Air I&O- Last 24 Hours up to 6 AM 04/14/19 06:00 Intake Total 1620 ml Output Total 550 ml Balance 1070 ml NADINE RAMOS MD Apr 14, 2019 19:07
[2019-04-14] MEDS: LEVEMIR (INSULIN DETEMIR) 1 UNITS/0.01ML SC SCH (21:51)
[2019-04-14 22:00] VITALS: BP 122/46
[2019-04-14] MEDS ORDERED: VANCOMYCIN HCL 1,000 MG, VIAL MATE ADAPTER 1 EACH in D5W 250 ML IV ONE (22:00)
--- NOTE | 2019-04-14 22:52 | PHACANCOPD ---
PHARMACY VANCOMYCIN DOSING Pt Demographics Demographics Patient Age:79 , Weight:75.300 , Gender: female Adjusted Body Weight Events Past 24 Hours Events Past 24 Hours: YES: Dialysis, Diuretic Therapy, Change in CrCl, Fever, Elevation in WBC, Pending Diagnostics, Pending Procedures, Other Vancomycin Vancomycin indication: multi resistant strep VIRIDANS Vancomycin Target Ranges: 10-20 mcg/ml Vancomycin Load Y/N: No Load Dose Date Time Vancomycin Load Dose: Date: Time: Vancomycin Dose Date: 04/14/19. Current Vancomycin Dose: [VANCO 1GM IV x1 DOSE 22:00] Intermittent Dosing?: Yes Labs Labs Laboratory Tests 04/12/19 16:40 Red Blood Count 3.54, Mean Corpuscular Volume 103.1, Mean Corpuscular Hemoglobin 32.5, Mean Corpuscular Hemoglobin Concent 31.5, Red Cell Distribution Width 14.7, Neutrophils (%) (Auto) 76.1, Lymphocytes (%) (Auto) 13.0, Monocytes (%) (Auto) 8.4, Eosinophils (%) (Auto) 1.7, Basophils (%) (Auto) 0.3, Neutrophils # (Auto) 8.7, Lymphocytes # (Auto) 1.5, Monocytes # (Auto) 1.0, Eosinophils # (Auto) 0.2, Basophils # (Auto) 0.0, Calcium Level 8.6, Total Creatine Kinase 177 04/13/19 05:47 Red Blood Count 3.18, Mean Corpuscular Volume 105.0, Mean Corpuscular Hemoglobin 33.3, Mean Corpuscular Hemoglobin Concent 31.7, Red Cell Distribution Width 14.7, Calcium Level 8.4 Micro Microbiology 04/12/19 Urine Culture - Final, Complete Strep Alactolyticus (Viridans) Creatinine Clearance Date:04/14/19. Creatinine Clearance: [N/A HD patient]. Assessment and Plan Maintaining Current Dose?: Yes Reason for dose change: No Dose Change Pharmacist Note Pharmacist Note Date: 04/14/19. PharmD note: VANCO 1GM IV @22:00 THIS EVENING THEN VANCO 1GM IV s/p HD on HD DAYS [facility] Apr 14, 2019 22:52
[2019-04-15] MEDS: traMADol 50 MG TAB PO PRN ×3 (05:19→21:03)
[2019-04-15] MEDS: CIPROFLOXACIN 250 MG TAB PO SCH (05:19)
[2019-04-15 06:00] VITALS: BP 141/55
[2019-04-15] MEDS: ADVAIR HFA 115/21MCG INHALER INH SCH ×2 (07:14→20:00)
[2019-04-15] MEDS: HumaLOG INSULIN (NovoLOG) PER UNIT SC SCH ×3 (07:24→17:38)
[2019-04-15] MEDS: GABAPENTIN 100 MG CAP PO SCH ×2 (08:02→21:03)
[2019-04-15] MEDS: ASPIRIN 81 MG ENTERIC TAB PO SCH (08:02)
[2019-04-15] MEDS: HEPARIN SOD (PORCINE) 5000 UNITS/ML VIAL SC SCH ×2 (08:02→21:02)
[2019-04-15] MEDS: CLOPIDOGREL 75 MG TAB PO SCH (08:02)
[2019-04-15] MEDS: CALCITRIOL 0.25 MCG CAP (S0169) PO SCH ×2 (08:02→21:03)
[2019-04-15] MEDS: VITAMIN D 1,000 INTERNATIONAL UNITS TABLET PO SCH (08:02)
[2019-04-15] MEDS: ATORVASTATIN 20 MG TAB PO SCH (08:02)
[2019-04-15] MEDS: FUROSEMIDE 80 MG TAB PO SCH ×2 (08:03→21:03)
[2019-04-15] MEDS: DULoxetine 30 MG CAP (CYMBALTA) PO SCH (08:03)
[2019-04-15] MEDS: DOCUSATE SODIUM 100 MG CAP PO SCH ×2 (08:03→21:03)
[2019-04-15] MEDS: amLODIPine 10 MG TAB PO SCH (08:03)
[2019-04-15] MEDS: CARVedilol 6.25 MG TAB PO SCH (08:03)
[2019-04-15] MEDS: ACETAMINOPHEN TAB 650MG DOSE (2X325MG) PO PRN ×2 (08:04→17:39)
[2019-04-15] MEDS: FAMOTIDINE 20 MG TAB PO SCH ×2 (08:04→21:03)
[2019-04-15 14:00] VITALS: BP 125/65
[2019-04-15] MEDS: **VANCO AFTER HD** MISC XX SCH (15:16)
[2019-04-15] MEDS ORDERED: VANCOMYCIN HCL 1,000 MG, VIAL MATE ADAPTER 1 EACH in D5W 250 ML IV SCH (16:00)
--- NOTE | 2019-04-15 20:23 | IPNPDOC ---
Text Note Date of Service The patient was seen on 04/15/19. NOTE This is an 79-year-old female who sustained a ground-level fall at home. She continues to complain of remarkable right sided rib pain. This inhibits her mobility. Physical exam Vital signs: Please see below General: The patient is up in a chair at bedside, she has some distress from pain HEENT: Neck is supple with no adenopathy or thyromegaly, oral mucosa is moist. Cardiovascular: Regular rate and rhythm, no appreciable murmur. Respiratory: Diminished air movement due to pain, there is bruising to the right lateral chest wall, this is tender to palpation Abdomen: Soft, nontender, nondistended. Extremities: No peripheral edema ASSESSMENT/PLAN: 1. Fall injury.This occurred at home. Concern is raised for her ability to care for self. PT and OT eval's were obtained as she may require placement versus home health services. Her mobility is limited by pain to her right rib cage. Images have been reviewed. There is no rib fracture. Attempting to adjust pain medications for comfort. Patient cannot tolerate morphine or codeine apparently, states codeine makes her sick to her stomach. 2. End-stage renal disease--patient continues with her hemodialysis schedule. 3. Urinary tract infection.The patient had had a positive urinalysis. She had been placed on ciprofloxacin. Urine culture is positive for strep viridans. It is resistant to multiple agents. Additionally, patient has multiple allergies to penicillin and cephalosporin agents. The organism is sensitive to vancomycin, appreciate assistance from pharmacy with dosing. VS,Fishbone, I+O VS, Fishbone, I+O Vital Signs Date Time Temp Pulse Resp B/P (MAP) Pulse Ox O2 Delivery O2 Flow Rate FiO2 04/15/19 14:00 98.2 51 18 125/65 (85) 98 04/12/19 22:46 Room Air I&O- Last 24 Hours up to 6 AM 04/15/19 06:00 Intake Total 570 ml Output Total 1750 ml Balance -1180 ml NADINE RAMOS MD Apr 15, 2019 20:23
[2019-04-15] MEDS: LEVEMIR (INSULIN DETEMIR) 1 UNITS/0.01ML SC SCH (21:04)
--- NOTE | 2019-04-15 21:06 | IPN ---
DATE: 04/15/2019 SUBJECTIVE: Shanda is seen, examined this morning at the bedside. She was dialyzed yesterday without any issues with 1500 mL of fluid removed today. Today she continues to complain of pain at her right rib cage were she had trauma due to the recent fall at home. VITAL SIGNS: Temperature 98.2, pulse 51, respiratory rate 18, blood pressure 125/65, saturating 98% on room air. Intake yesterday was 930. Urine output yesterday was 450. Dialysis yesterday removed 1500, net negative 1 liter. Weight in the bed scale today is not recorded. GENERAL: The patient is seen lying in bed, elderly female, awake, alert, oriented, no acute distress. Extraocular muscles are intact. Tongue is moist. Neck is supple. Jugular veins were not elevated. Heart sounds are regular. S1-S2. Lungs are clear to auscultation on the left and somewhat diminished on the right base. There is a tenderness on the right chest wall. She has trouble with deep inspiration. The abdomen is soft and nontender. There are bowel sounds. The extremities have no cyanosis or clubbing. There is a fistula present in the right upper arm. NEUROLOGIC: She is awake, alert, and at baseline mentation. SKIN: Normal turgor and temperature. LABORATORY DATA: White count 5.9, hemoglobin 10.6. Glucose 136. INPATIENT MEDICATIONS: Reviewed by myself. Tramadol was adjusted per the primary team. Remainder of medications are unchanged from prior. PROBLEMS: 1. End-stage renal disease, on hemodialysis on Wednesday, Wednesday, Wednesday schedule. She continues on her usual maintenance schedule and is tolerating her treatments. Her volume status is acceptable, and chemistry is ordered for tomorrow. 2. Hypertension. Blood pressures are well controlled, and no changes are being made to her current regimen of amlodipine, carvedilol, and Lasix. 3. Recurrent falls and recent trauma to the right ribcage. She has had a few falls throughout the past winter and spring and has previously spent some time in rehabilitation. She continues with pain control as per primary team and physical therapy. 4. Grade 2 diastolic congestive heart failure with preserved systolic function. The patient's volume status is well compensated and is regulated via dialysis. She continues on fluid restriction and is tolerating fluid removal down to dry weight without any issues.
[2019-04-15 22:00] VITALS: BP 128/53
[2019-04-16] MEDS: CIPROFLOXACIN 250 MG TAB PO SCH (05:23)
[2019-04-16] MEDS: traMADol 50 MG TAB PO PRN ×2 (05:24→20:40)
[2019-04-16 06:00] VITALS: BP 130/54
[2019-04-16] MEDS: ADVAIR HFA 115/21MCG INHALER INH SCH ×2 (07:23→21:33)
[2019-04-16 07:29] LABS: HEMATOCRIT 38.9 % (36.0-47.0); HEMOGLOBIN 11.9 g/dl (12.0-15.5); MEAN CORPUSCULAR HEMOGLOBIN 33.2 pg (27.0-33.0); MEAN CORPUSCULAR HGB CONC 30.6 g/dl (32.0-36.5); MEAN CORPUSCULAR VOLUME 108.7 fl (80.0-96.0); PLATELET COUNT, AUTOMATED 249 10^3/uL (150-450); RED BLOOD COUNT 3.58 10^6/uL (4.00-5.40)
[2019-04-16 08:06] LABS: CALCIUM LEVEL 9.3 MG/DL (8.8-10.2); CREATININE FOR GFR 4.7 MG/DL (0.55-1.30); GLOMERULAR FILTRATION RATE 9.5 (>32); POTASSIUM SERUM 4.5 MEQ/L (3.5-5.1)
[2019-04-16] MEDS: HumaLOG INSULIN (NovoLOG) PER UNIT SC SCH ×3 (08:07→17:23)
[2019-04-16] MEDS: GABAPENTIN 100 MG CAP PO SCH ×2 (08:07→20:39)
[2019-04-16] MEDS: CARVedilol 6.25 MG TAB PO SCH (08:07)
[2019-04-16] MEDS: CALCITRIOL 0.25 MCG CAP (S0169) PO SCH ×2 (08:08→20:39)
[2019-04-16] MEDS: ATORVASTATIN 20 MG TAB PO SCH (08:08)
[2019-04-16] MEDS: FAMOTIDINE 20 MG TAB PO SCH ×2 (08:08→20:40)
[2019-04-16] MEDS: CLOPIDOGREL 75 MG TAB PO SCH (08:08)
[2019-04-16] MEDS: ASPIRIN 81 MG ENTERIC TAB PO SCH (08:08)
[2019-04-16] MEDS: VITAMIN D 1,000 INTERNATIONAL UNITS TABLET PO SCH (08:08)
[2019-04-16] MEDS: DULoxetine 30 MG CAP (CYMBALTA) PO SCH (08:08)
[2019-04-16] MEDS: amLODIPine 10 MG TAB PO SCH (08:08)
[2019-04-16] MEDS: FUROSEMIDE 80 MG TAB PO SCH ×2 (08:09→20:40)
[2019-04-16] MEDS: HEPARIN SOD (PORCINE) 5000 UNITS/ML VIAL SC SCH ×2 (08:09→20:39)
[2019-04-16] MEDS: DOCUSATE SODIUM 100 MG CAP PO SCH ×2 (08:09→20:39)
[2019-04-16] MEDS: LIDOCAINE 5% (LIDODERM) PATCH TD SCH (13:06)
[2019-04-16 14:00] VITALS: BP 131/53
--- NOTE | 2019-04-16 15:32 | IPN ---
DATE: 04/16/2019 SUBJECTIVE: Patient is seen and examined this morning at the bedside. She complains of pain at the right rib cage; otherwise denies any new issues. VITAL SIGNS: Temperature 97.6, pulse 68, respiratory rate 18, blood pressure 130/54, saturating 98% on room air. GENERAL: Patient is seen lying in bed, elderly female sleeping, but easily arousable, no acute distress. Extraocular muscles are intact. Tongue is moist. Neck is supple. Jugular veins were not elevated. Heart sounds are regular. S1, S2. Lungs are clear to auscultation on the left and somewhat diminished on the right. There is tenderness on the right chest wall. She has trouble with deep inspiration. Abdomen is soft and nontender. There are bowel sounds. The extremities have no cyanosis or clubbing. There is a fistula present in the right upper arm. NEUROLOGIC: She is at baseline mentation. SKIN: Normal turgor and temperature. LABORATORY DATA: White count 8.0, hemoglobin 11.9, platelet 249 Sodium 137, potassium 4.5. INPATIENT MEDICATIONS: Reviewed by myself. She was started on a lidocaine patch. Remainder of the medications are unchanged from prior. PROBLEMS: 1. End-stage renal disease on hemodialysis on Wednesday, Wednesday, Wednesday schedule. She continues on her usual maintenance schedule and is tolerating her treatments. Volume status is acceptable and electrolytes are acceptable as well. Fistula is in good use and no changes being made to the current prescription. 2. Hypertension. Blood pressures are well-controlled and no changes are being made to the current regimen of amlodipine, carvedilol and Lasix. 3. Recurrent falls and recent trauma to the right rib cage. She has had a few falls throughout the past winter and spring and has recently spent some time in rehabilitation. She continues with pain control as per primary team, presently on oral tramadol and lidocaine patch. 4. Grade 2 diastolic congestive heart failure. Volume status is well-compensated and is regulated via dialysis. She is continued on fluid restriction and is tolerating fluid removal with dialysis without any issues.
[2019-04-16] MEDS: **VANCO AFTER HD** MISC XX SCH (16:00)
--- NOTE | 2019-04-16 17:34 | IPNPDOC ---
Text Note Date of Service The patient was seen on 04/16/19. NOTE This is an 79-year-old female who sustained a ground-level fall at home. She continues to be a distress by pain to her right chest wall. She cries in her sleep. She is wanting to go home and be more active. However, her pain is keeping her from doing so. She is limited on analgesic agents that can be used. She is poorly tolerant of most opiates. Physical exam Vital signs: Please see below General: The patient is in bed, she has some distress from pain while sleeping and cries out HEENT: Neck is supple with no adenopathy or thyromegaly, oral mucosa is moist. Cardiovascular: Regular rate and rhythm, no appreciable murmur. Respiratory: Diminished air movement due to pain, there is bruising to the right lateral chest wall, this is tender to palpation Abdomen: Soft, nontender, nondistended. Extremities: No peripheral edema ASSESSMENT/PLAN: 1. Fall injury.This occurred at home. Concern is raised for her ability to care for self. PT and OT eval's were obtained as she may require placement versus home health services. Her mobility is limited by pain to her right rib cage. Images have been reviewed. There is no rib fracture. Attempting to adjust pain medications for comfort. Patient cannot tolerate morphine or codeine apparently, states codeine makes her sick to her stomach. Patient cannot have Toradol. We'll try lidocaine patch. 2. End-stage renal disease--patient continues with her hemodialysis schedule. 3. Urinary tract infection.The patient had had a positive urinalysis. She had been placed on ciprofloxacin. Urine culture is positive for strep viridans. It is resistant to multiple agents. Additionally, patient has multiple allergies to penicillin and cephalosporin agents. The organism is sensitive to vancomycin, appreciate assistance from pharmacy with dosing. VS,Fishbone, I+O VS, Fishbone, I+O Laboratory Tests 04/16/19 07:08 Red Blood Count 3.58 L, Mean Corpuscular Volume 108.7 H, Mean Corpuscular Hemoglobin 33.2 H, Mean Corpuscular Hemoglobin Concent 30.6 L, Red Cell Distribution Width 14.6 H, Calcium Level 9.3 Vital Signs Date Time Temp Pulse Resp B/P (MAP) Pulse Ox O2 Delivery O2 Flow Rate FiO2 04/16/19 08:08 68 130/54 04/16/19 06:00 97.6 18 98 04/12/19 22:46 Room Air I&O- Last 24 Hours up to 6 AM 04/16/19 06:00 Intake Total 1090 ml Output Total 50 ml Balance 1040 ml NADINE RAMOS MD Apr 16, 2019 17:34
[2019-04-16] MEDS: **NOTE PATIENT COMMENT** MISC XX SCH (20:41)
[2019-04-16] MEDS: LEVEMIR (INSULIN DETEMIR) 1 UNITS/0.01ML SC SCH (20:41)
[2019-04-16 21:44] VITALS: BP 133/53
[2019-04-17] MEDS: ATORVASTATIN 20 MG TAB PO SCH (06:37)
[2019-04-17] MEDS: GABAPENTIN 100 MG CAP PO SCH ×2 (06:37→21:03)
[2019-04-17] MEDS: VITAMIN D 1,000 INTERNATIONAL UNITS TABLET PO SCH (06:37)
[2019-04-17] MEDS: CALCITRIOL 0.25 MCG CAP (S0169) PO SCH ×2 (06:37→21:03)
[2019-04-17] MEDS: CLOPIDOGREL 75 MG TAB PO SCH (06:38)
[2019-04-17] MEDS: CIPROFLOXACIN 250 MG TAB PO SCH (06:38)
[2019-04-17] MEDS: HEPARIN SOD (PORCINE) 5000 UNITS/ML VIAL SC SCH ×2 (06:38→21:03)
[2019-04-17] MEDS: LIDOCAINE 5% (LIDODERM) PATCH TD SCH (06:38)
[2019-04-17] MEDS: DOCUSATE SODIUM 100 MG CAP PO SCH ×2 (06:38→21:03)
[2019-04-17] MEDS: ACETAMINOPHEN TAB 650MG DOSE (2X325MG) PO PRN ×2 (06:38→21:04)
[2019-04-17] MEDS: ASPIRIN 81 MG ENTERIC TAB PO SCH (06:38)
[2019-04-17] MEDS: amLODIPine 10 MG TAB PO SCH (06:39)
[2019-04-17] MEDS: FUROSEMIDE 80 MG TAB PO SCH ×2 (06:39→21:03)
[2019-04-17] MEDS: FAMOTIDINE 20 MG TAB PO SCH ×2 (06:39→21:03)
[2019-04-17] MEDS: CARVedilol 6.25 MG TAB PO SCH (06:39)
[2019-04-17] MEDS: DULoxetine 30 MG CAP (CYMBALTA) PO SCH (06:39)
[2019-04-17 06:51] VITALS: BP 147/57
[2019-04-17] MEDS: ADVAIR HFA 115/21MCG INHALER INH SCH ×2 (07:18→21:20)
[2019-04-17] MEDS: HumaLOG INSULIN (NovoLOG) PER UNIT SC SCH ×3 (07:55→18:00)
[2019-04-17] MEDS ORDERED: HEPARIN 1,000 UNITS/ML 10ML VIAL (FOR RADIOLOGY& DIALYSIS ONLY) IV ONE (11:45)
[2019-04-17] MEDS: **VANCO AFTER HD** MISC XX SCH (16:00)
[2019-04-17 17:55] VITALS: BP 117/42
--- NOTE | 2019-04-17 20:13 | IPNPDOC ---
Text Note Date of Service The patient was seen on 04/17/19. NOTE This is an 79-year-old female who sustained a ground-level fall at home. She had had considerable distress from severe pain to her right chest wall. She had not been found to have injuries such as rib fracture. Her pain severely limited her mobility. Today she is up in a chair, moving freely; we have initiated treatment with a lidocaine patch. Physical exam Vital signs: Please see below General: The patient is up in a chair and fairly comfortable HEENT: Neck is supple with no adenopathy or thyromegaly, oral mucosa is moist. Cardiovascular: Regular rate and rhythm, no appreciable murmur. Respiratory: Diminished air movement due to pain, there is bruising to the right lateral chest wall, there is tender to palpation Abdomen: Soft, nontender, nondistended. Extremities: No peripheral edema ASSESSMENT/PLAN: 1. Fall injury.This occurred at home. Concern is raised for her ability to care for self. PT and OT eval's were obtained as she may require placement versus home health services. Her mobility was limited by pain to her right rib cage. Images have been reviewed. There is no rib fracture. The patient has been responsive to use a lidocaine patch. We had also increased the dosage of her tramadol; of interest, the patient reports having hallucinations with this. We will decrease the dosage of her tramadol back to its prior dosing. 2. End-stage renal disease--patient continues with her hemodialysis schedule. 3. Urinary tract infection.The patient had had a positive urinalysis. She had been placed on ciprofloxacin. Urine culture is positive for strep viridans. It is resistant to multiple agents. Additionally, patient has multiple allergies to penicillin and cephalosporin agents. The organism is sensitive to vancomycin, appreciate assistance from pharmacy with dosing. Although the patient has been more mobile with physical therapy with controlling her rib pain, is still felt that she would benefit from a short stay in detention prior to transitioning to home alone. VS,Fishbone, I+O VS, Fishbone, I+O Vital Signs Date Time Temp Pulse Resp B/P (MAP) Pulse Ox O2 Delivery O2 Flow Rate FiO2 04/17/19 17:55 98.5 68 18 117/42 (67) 96 04/12/19 22:46 Room Air I&O- Last 24 Hours up to 6 AM 04/17/19 06:00 Intake Total 1500 ml Output Total 0 ml Balance 1500 ml NADINE RAMOS MD Apr 17, 2019 20:13
[2019-04-17] MEDS ORDERED: traMADol 50 MG TAB PO PRN (20:15)
[2019-04-17 20:31] VITALS: BP 112/43
[2019-04-17] MEDS: LEVEMIR (INSULIN DETEMIR) 1 UNITS/0.01ML SC SCH (21:03)
[2019-04-17] MEDS: **NOTE PATIENT COMMENT** MISC XX SCH (21:05)
[2019-04-18] MEDS: ACETAMINOPHEN TAB 650MG DOSE (2X325MG) PO PRN (03:32)
--- NOTE | 2019-04-18 05:41 | IPN ---
DATE OF VISIT: 04/17/2019 SUBJECTIVE: The patient is seen and examined this morning in the hemodialysis unit receiving her maintenance treatment. She reports the pain in the right rib cage is better with the lidocaine patch. PHYSICAL EXAMINATION: VITAL SIGNS: Temperature 98.5, pulse 60, respiratory rate 18, blood pressure 117/42, saturating 96% on room air. Intake yesterday was 1240. Dialysis today removed 1 liter. Weight in the bed scale today is not recorded. General: The patient is seen in the hemodialysis unit, an elderly female receiving her treatment, drowsy but easily arousable. HEENT: Extraocular muscles are intact, tongue is moist. Neck: Neck is supple. Jugular veins were not elevated. Heart: heart sounds are regular S1 and S2. Lungs: Clear to auscultation. There is no crackle or rales. There is tenderness on the right chest wall. She has trouble with deep inspiration. Abdomen: Soft and nontender. There are bowel sounds. Extremities: The extremities have no cyanosis or clubbing. There is a fistula present in the right upper arm which is currently in use. Neurologic: She is at baseline mentation. Skin: Normal turgor and temperature. LABORATORY DATA: White count 8.0, hemoglobin 11.9, platelet 249. INPATIENT MEDICATIONS: Reviewed by myself and noted that her tramadol dose was decreased. The remainder medications are unchanged from prior. PROBLEMS: 1. End-stage renal disease on hemodialysis on Wednesday, Wednesday, Wednesday schedule. She continues on the usual maintenance schedule and is tolerating her treatments. Volume status is acceptable and electrolytes are within normal range. Fistula is in good use and no changes are being made to the current prescription. 2. Hypertension. Blood pressures are well-controlled and she continues on amlodipine, Carvedilol and Lasix. 3. Recurrent falls and recent trauma to right rib cage. The patient continues with the pain control as per primary team. She was mildly confused when seen on dialysis today and her tramadol was decreased as per the primary team. She continues on lidocaine patch. 4. Grade 2 diastolic congestive heart failure. Volume status as well compensated and is regulated by dialysis. She is continued on fluid restriction and is tolerating fluid removal with dialysis without any issue.
[2019-04-18 05:52] VITALS: BP 120/43
[2019-04-18] MEDS: CIPROFLOXACIN 250 MG TAB PO SCH (06:11)
[2019-04-18] MEDS: ADVAIR HFA 115/21MCG INHALER INH SCH ×2 (07:28→21:25)
[2019-04-18] MEDS: HumaLOG INSULIN (NovoLOG) PER UNIT SC SCH ×3 (07:30→17:28)
[2019-04-18 07:38] LABS: BASO % 0.5 % (0.0-1.0); EOS # 0.2 10^3/uL (0.0-0.50); EOS % 2.2 % (0.0-3.0); HEMATOCRIT 33.4 % (36.0-47.0); HEMOGLOBIN 10.5 g/dl (12.0-15.5); LYMPH % 26.6 % (24.0-44.0); MEAN CORPUSCULAR HGB CONC 31.4 g/dl (32.0-36.5); MONO # 1.1 10^3/uL (0.0-0.8); MONO % 14.3 % (0.0-5.0); NEUTROPHILS # 4.1 10^3/uL (1.8-7.7); NEUTROPHILS % 56.1 % (36.0-66.0); PLATELET COUNT, AUTOMATED 286 10^3/uL (150-450); RED BLOOD COUNT 3.18 10^6/uL (4.00-5.40); WHITE BLOOD COUNT 7.3 10^3/uL (4.0-10.0)
[2019-04-18 07:44] LABS: CALCIUM LEVEL 9.4 MG/DL (8.8-10.2); CREATININE FOR GFR 3.97 MG/DL (0.55-1.30); GLOMERULAR FILTRATION RATE 11.5 (>32); POTASSIUM SERUM 3.8 MEQ/L (3.5-5.1)
[2019-04-18] MEDS: HEPARIN SOD (PORCINE) 5000 UNITS/ML VIAL SC SCH ×2 (09:03→21:39)
[2019-04-18] MEDS: DULoxetine 30 MG CAP (CYMBALTA) PO SCH (09:03)
[2019-04-18] MEDS: FUROSEMIDE 80 MG TAB PO SCH ×2 (09:03→21:39)
[2019-04-18] MEDS: DOCUSATE SODIUM 100 MG CAP PO SCH ×2 (09:03→21:38)
[2019-04-18] MEDS: CALCITRIOL 0.25 MCG CAP (S0169) PO SCH ×2 (09:04→21:38)
[2019-04-18] MEDS: ASPIRIN 81 MG ENTERIC TAB PO SCH (09:04)
[2019-04-18] MEDS: CLOPIDOGREL 75 MG TAB PO SCH (09:04)
[2019-04-18] MEDS: GABAPENTIN 100 MG CAP PO SCH ×2 (09:04→21:38)
[2019-04-18] MEDS: ATORVASTATIN 20 MG TAB PO SCH (09:04)
[2019-04-18] MEDS: VITAMIN D 1,000 INTERNATIONAL UNITS TABLET PO SCH (09:05)
[2019-04-18] MEDS: FAMOTIDINE 20 MG TAB PO SCH ×2 (09:05→21:38)
[2019-04-18] MEDS: LIDOCAINE 5% (LIDODERM) PATCH TD SCH (09:07)
[2019-04-18] MEDS: CARVedilol 6.25 MG TAB PO SCH (09:08)
[2019-04-18] MEDS: amLODIPine 10 MG TAB PO SCH (09:08)
[2019-04-18] MEDS ORDERED: VANCOMYCIN HCL 1,000 MG, VIAL MATE ADAPTER 1 EACH in D5W 250 ML IV ONE (11:00)
--- NOTE | 2019-04-18 13:45 | IPN ---
DATE OF SERVICE: 04/18/2019 ATTENDING PHYSICIAN: Dr. Funmilayo Kelley SUBJECTIVE: The patient is seen and examined this morning. She had dialysis yesterday, which 1 liter of fluid was removed. She continues to report pain on the right side where she has bruised her ribs. She has noted improvement with lidocaine patch. The patient stated that she has not been taking her tramadol. However, she has been made aware that she may use this. OBJECTIVE: Vital signs: Temperature 98.3, pulse 72, respiration rate 20, pulse oximetry 96%, blood pressure 120/43. General: The patient is aware, alert, and oriented. She appears in no acute distress. Sitting at the side of her bed holding her right side where she has bruised her rib. HEENT: Eyes anicteric. Trachea is midline. Mucous membranes and trachea moist. Neck: Neck is supple. No jugular venous distention. Cardiovascular: Normal S1, S2. Regular rate and rhythm. No clicks, rubs, or murmurs. Pulmonary: Clear vesicular lung sounds bilaterally. No wheezes, rhonchi, or rales. Tenderness to palpation on the right chest wall. Pain with deep inspiration. Abdomen: Soft, nontender to palpation. Positive bowel sounds. Extremities: No cyanosis or clubbing. No edema in bilateral lower extremities. Fistula is present in the right upper arm and is currently patent in use. Psychiatric: Mood and affect appear appropriate. LABORATORY: Hematology: White blood cell count 7.3, hemoglobin 10.5, hematocrit 33.4, platelet count 286. Chemistry: Sodium 139, potassium 3.8, chloride 102, carbon dioxide 29, creatinine 3.97, BUN 39, fasting glucose 85, calcium 9.4. ASSESSMENT AND PLAN: 1. End-stage renal disease, on hemodialysis Wednesday, Wednesday, Wednesday. The patient received hemodialysis yesterday. She had 1 liter of fluid removed. Volume status is currently acceptable, and her electrolytes are within normal range. Her fistula is present in the right upper extremity. 2. Hypertension. The patient is currently on amlodipine, carvedilol, Lasix. Her blood pressures are well controlled. 3. Recurrent falls. Recent trauma right ribcage. The patient is currently receiving a lidocaine patch. She also has tramadol prescribed to her. She has noted continued pain on the right side. However, it has improved with use of her lidocaine patch. 4. Grade 2 diastolic congestive heart failure. The patient's volume status is fairly well compensated. She had 1 liter removed with dialysis yesterday. Continue on fluid restriction. MTDD
[2019-04-18 15:06] VITALS: BP 121/44
[2019-04-18 15:07] VITALS: BP 121/44
--- NOTE | 2019-04-18 15:45 | IPNPDOC ---
Text Note Date of Service The patient was seen on 04/18/19. NOTE Subjective: Patient is an 79-year-old female who sustained a ground-level fall at home. She had had considerable distress from severe pain to her right chest wall. Imaging was negative for fractures. Her pain severely limited her mobility. Patient was seen and examined at the bedside. Patient was noted to be ambulating around her room, still reported to have some pain with deep inspiration. Denies any cough, shortness of breath or palpitations. Denies nausea, vomiting, abdominal pain, constipation, diarrhea. Objective: Vitals (See below) General: Lying in bed, no acute distress, comfortable, AAOx3 HEENT: NC, AT CVS: +S1S2 Lungs: Fair air entry b/l, -w/r/r Chest: tenderness on palpation along R chest wall Abdomen: Soft, ND, mild tenderness around RUQ Extremities: - Edema, - Calf tenderness Assessment and plan: Intractable right chest wall pain - likely 2/2 rib contusion 2/2 mechanical fall - Patient has noted some improvement of her pain - Still reports splinting with deep breath - Hemodynamically stable / afebrile - Labs are unremarkable - Chest CT 04/12: No acute or concerning focal thoracic abnormality. Atherosclerotic change and ectasia of the aorta. Prominent mediastinal lymphadenopathy measuring up to 13 mm short axis. No bulky adenopathy - c/w pain control; Tramadol (adjusted dose 2/2 hallucinations) - Will start incentive spirometry - c/w PT & OT; will likely need sub-acute rehab placement Mechanical fall - Head CT 04/12: 1. Chronic small vessel white matter ischemic changes of aging in both hemispheres, stable. No acute infarct. 2. No intracranial hemorrhage, mass, mass effect or edema. 3. Cortical atrophy and ventriculomegaly in proportion and unchanged from 01/25/2019. 4. No fracture or focal lesion of the skull base or calvarium. - CXR 04/12: Cardiomegaly. Chronic interstitial densities in the lungs. No new infiltrate. - CT abdomen 04/12: 1. No acute surgical or inflammatory intra-abdominal or pelvic process. 2. Right punctate nonobstructive renal calculi. No hydronephrosis or ureter stone. ESRD on HD (MWF) - Nephrology on consult Urinary tract infection - UA consistent with infection - Urine culture 04/12: Strep viridans - c/w Vancomycin with HD / Ciprofloxacin (Day #6) - will discontinue antibiotics on 04/19 HTN - Bp well controlled - c/w Amldipine, Carvedilol, CAD - c/w ASA, Plavix and Atorvastatin TIA - c/w ASA, Plavix and Atorvastatin IDDM2 - c/w ISS and Levemir Neuropathy - c/w Gabapentin GERD - c/w Famotidine DVT prophylaxis - c/w Heparin Disposition: - Awaiting [facility] placement VS,Fishbone, I+O VS, Fishbone, I+O Laboratory Tests 04/18/19 06:59 Red Blood Count 3.18 L, Mean Corpuscular Volume 105.0 H, Mean Corpuscular Hemoglobin 33.0, Mean Corpuscular Hemoglobin Concent 31.4 L, Red Cell Distribution Width 14.6 H, Neutrophils (%) (Auto) 56.1, Lymphocytes (%) (Auto) 26.6, Monocytes (%) (Auto) 14.3 H, Eosinophils (%) (Auto) 2.2, Basophils (%) (Auto) 0.5, Neutrophils # (Auto) 4.1, Lymphocytes # (Auto) 2.0, Monocytes # (Auto) 1.1 H, Eosinophils # (Auto) 0.2, Basophils # (Auto) 0.0 04/18/19 07:02 Calcium Level 9.4 Vital Signs Date Time Temp Pulse Resp B/P (MAP) Pulse Ox O2 Delivery O2 Flow Rate FiO2 04/18/19 09:08 68 120/63 04/18/19 05:52 98.3 20 96 04/12/19 22:46 Room Air I&O- Last 24 Hours up to 6 AM 04/18/19 06:00 Intake Total 800 ml Output Total 1000 ml Balance -200 ml REGINALD POP MD Apr 18, 2019 15:45
[2019-04-18] MEDS: **VANCO AFTER HD** MISC XX SCH (16:00)
[2019-04-18] MEDS: LEVEMIR (INSULIN DETEMIR) 1 UNITS/0.01ML SC SCH (21:39)
[2019-04-18] MEDS: **NOTE PATIENT COMMENT** MISC XX SCH (21:40)
[2019-04-18 22:00] VITALS: BP 105/58
[2019-04-19] MEDS: LIDOCAINE 5% (LIDODERM) PATCH TD SCH (05:58)
[2019-04-19] MEDS: DOCUSATE SODIUM 100 MG CAP PO SCH ×2 (05:59→21:10)
[2019-04-19] MEDS: CALCITRIOL 0.25 MCG CAP (S0169) PO SCH ×2 (05:59→21:10)
[2019-04-19] MEDS: FUROSEMIDE 80 MG TAB PO SCH ×2 (05:59→21:10)
[2019-04-19] MEDS: ASPIRIN 81 MG ENTERIC TAB PO SCH (05:59)
[2019-04-19] MEDS: CLOPIDOGREL 75 MG TAB PO SCH (05:59)
[2019-04-19 06:00] VITALS: BP 124/51
[2019-04-19] MEDS: DULoxetine 30 MG CAP (CYMBALTA) PO SCH (06:00)
[2019-04-19] MEDS: VITAMIN D 1,000 INTERNATIONAL UNITS TABLET PO SCH (06:00)
[2019-04-19] MEDS: FAMOTIDINE 20 MG TAB PO SCH ×2 (06:01→21:10)
[2019-04-19] MEDS: GABAPENTIN 100 MG CAP PO SCH ×2 (06:01→21:10)
[2019-04-19] MEDS: CIPROFLOXACIN 250 MG TAB PO SCH (06:01)
[2019-04-19] MEDS: ATORVASTATIN 20 MG TAB PO SCH (06:01)
[2019-04-19] MEDS: HEPARIN SOD (PORCINE) 5000 UNITS/ML VIAL SC SCH ×2 (06:27→21:11)
[2019-04-19] MEDS: ADVAIR HFA 115/21MCG INHALER INH SCH ×2 (06:39→18:26)
[2019-04-19] MEDS: HumaLOG INSULIN (NovoLOG) PER UNIT SC SCH ×3 (07:30→17:22)
[2019-04-19] MEDS ORDERED: HEPARIN 1,000 UNITS/ML 10ML VIAL (FOR RADIOLOGY& DIALYSIS ONLY) IV ONE (11:30)
[2019-04-19] MEDS: CARVedilol 6.25 MG TAB PO SCH (13:05)
[2019-04-19] MEDS: amLODIPine 10 MG TAB PO SCH (13:05)
--- NOTE | 2019-04-19 13:29 | IPNPDOC ---
Text Note Date of Service The patient was seen on 04/19/19. NOTE Subjective: Patient is an 79-year-old female who sustained a ground-level fall at home. She had had considerable distress from severe pain to her right chest wall. Imaging was negative for fractures. Her pain severely limited her mobility. Patient was seen and examined at the bedside. Patient reports her pain is doing slightly better. She denies any cough, but does report some splinting that has improved with the incentive spirometer. She denies any constipation / diarrhea. Denies any urinary discomfort. Objective: Vitals (See below) General: Lying in bed, no acute distress, comfortable, AAOx3 HEENT: NC, AT CVS: +S1S2 Lungs: Fair air entry b/l, no appreciable wheezing / rhonchi / rales Chest: tenderness on palpation along R chest wall Abdomen: Soft, ND, NT Extremities: No evidence of LE edema, - Calf tenderness Assessment and plan: Intractable right chest wall pain - likely 2/2 rib contusion 2/2 mechanical fall - Reported pain reduction - Still reports splinting with deep breath - has improved with incentive spirometry - Hemodynamically stable / afebrile - Labs are unremarkable - Chest CT 04/12: No acute or concerning focal thoracic abnormality. Atherosclerotic change and ectasia of the aorta. Prominent mediastinal lymphadenopathy measuring up to 13 mm short axis. No bulky adenopathy - c/w pain control; Tramadol (adjusted dose 2/2 hallucinations) - c/w PT & OT; has cleared - will likely be transitioned home tomorrow with services Mechanical fall - Head CT 04/12: 1. Chronic small vessel white matter ischemic changes of aging in both hemispheres, stable. No acute infarct. 2. No intracranial hemorrhage, mass, mass effect or edema. 3. Cortical atrophy and ventriculomegaly in proportion and unchanged from 01/25/2019. 4. No fracture or focal lesion of the skull base or calvarium. - CXR 04/12: Cardiomegaly. Chronic interstitial densities in the lungs. No new infiltrate. - CT abdomen 04/12: 1. No acute surgical or inflammatory intra-abdominal or pelv ic process. 2. Right punctate nonobstructive renal calculi. No hydronephrosis or ureter stone. ESRD on HD (MWF) - Will go for HD today - Nephrology on consult Urinary tract infection - UA consistent with infection - Urine culture 04/12: Strep viridans - c/w Vancomycin with HD / Ciprofloxacin (Day #7) - will discontinue antibiotics today HTN - Bp well controlled - c/w Amlodipine, Carvedilol, CAD - c/w ASA, Plavix and Atorvastatin TIA - c/w ASA, Plavix and Atorvastatin IDDM2 - c/w ISS and Levemir Neuropathy - c/w Gabapentin GERD - c/w Famotidine DVT prophylaxis - c/w Heparin Disposition: - Anticipate discharge home with services tomorrow VS,Fishbone, I+O VS, Fishbone, I+O Vital Signs Date Time Temp Pulse Resp B/P (MAP) Pulse Ox O2 Delivery O2 Flow Rate FiO2 04/19/19 13:05 73 138/53 04/19/19 06:30 16 04/19/19 06:00 97.7 91 I&O- Last 24 Hours up to 6 AM 04/19/19 06:00 Intake Total 760 ml Output Total 750 ml Balance 10 ml REGINALD POP MD Apr 19, 2019 13:29
[2019-04-19 14:00] VITALS: BP 129/52
[2019-04-19] MEDS: **VANCO AFTER HD** MISC XX SCH (16:00)
--- NOTE | 2019-04-19 16:12 | IPN ---
DATE: 04/19/2019 SUBJECTIVE: Patient was seen and examined this morning during her dialysis. She continues with her pain present on the right side where she had fallen and bruised her ribs. She otherwise does not note any new complaints. She currently has a right upper extremity fistula, which is in use. OBJECTIVE: VITAL SIGNS: Temperature 98.5, pulse 67, respiratory rate 14, blood pressure 129/52, pulse oximetry 98% on room air. GENERAL: Patient is awake, alert, oriented. She does not appear in any acute distress. She is lying in her bed, currently receiving dialysis. HEENT: Eyes are nonicteric. Trachea is midline. Mucous membranes are pink and moist. NECK: Supple. No jugular venous distention noted. CARDIOVASCULAR: Normal S1, S2, regular rate and rhythm. No clicks, thrills, or murmurs. PULMONARY: Clear vesicular breath sounds bilaterally. No wheezes, rhonchi, or rales. Tenderness to palpation on the right chest wall with pain to deep inspiration. ABDOMEN: Soft, nontender to palpation. Positive bowel sounds. EXTREMITIES: No cyanosis or clubbing. No edema of the bilateral lower extremities. Patient has a fistula present in the right upper arm, and it is currently in use. PSYCHIATRIC: Mood and affect appear appropriate. ASSESSMENT AND PLAN: 1. End-stage renal disease, on hemodialysis Wednesday, Wednesday, Wednesday. Patient currently receiving hemodialysis per her maintenances schedule. No changes to her prescription have been made. Her volume status is acceptable. Electrolytes within normal range. Her fistula present in the right upper extremity is currently in use. 2. Hypertension. Patient is currently on amlodipine, carvedilol, Lasix. Her blood pressures are well controlled. Will continue. 3. Recurrent falls. Patient has recurrent falls, recent trauma to the right ribcage. Currently receiving a lidocaine patch. She does have tramadol available to her for pain. She does have continued pain on her right side regarding her current falls. She would likely benefit from rehabilitation going forward. 4. Grade 2 diastolic congestive heart failure. Patient's volume status is currently well compensated. She is receiving hemodialysis today. Will continue on fluid restriction. My faculty preceptor for this patient encounter was physically present during the encounter and was fully available. All aspects of the patient interview, examination, medical decision-making process, and medical care plan development were reviewed and approved by the faculty preceptor. The faculty preceptor is aware and concurs with the plan as stated in the body of this note and will attest to such by his/her co-signature. MOSHE
[2019-04-19] MEDS: LEVEMIR (INSULIN DETEMIR) 1 UNITS/0.01ML SC SCH (21:11)
[2019-04-19] MEDS: **NOTE PATIENT COMMENT** MISC XX SCH (21:14)
[2019-04-19 22:00] VITALS: BP 131/50
[2019-04-20 06:00] VITALS: BP 152/57
[2019-04-20 07:00] LABS: CALCIUM LEVEL 9.5 MG/DL (8.8-10.2); CREATININE FOR GFR 3.64 MG/DL (0.55-1.30); GLOMERULAR FILTRATION RATE 12.8 (>32); POTASSIUM SERUM 4.2 MEQ/L (3.5-5.1)
[2019-04-20] MEDS ORDERED: LIDO5TD TD (07:16)
[2019-04-20] MEDS ORDERED: TRAM50TA2 PO (07:16)
[2019-04-20] MEDS: ADVAIR HFA 115/21MCG INHALER INH SCH (07:52)
[2019-04-20] MEDS: HEPARIN SOD (PORCINE) 5000 UNITS/ML VIAL SC SCH (08:19)
[2019-04-20] MEDS: CLOPIDOGREL 75 MG TAB PO SCH (08:20)
[2019-04-20] MEDS: HumaLOG INSULIN (NovoLOG) PER UNIT SC SCH ×2 (08:20→12:00)
[2019-04-20] MEDS: VITAMIN D 1,000 INTERNATIONAL UNITS TABLET PO SCH (08:20)
[2019-04-20] MEDS: ATORVASTATIN 20 MG TAB PO SCH (08:21)
[2019-04-20] MEDS: CALCITRIOL 0.25 MCG CAP (S0169) PO SCH (08:21)
[2019-04-20] MEDS: amLODIPine 10 MG TAB PO SCH (08:22)
[2019-04-20] MEDS: DULoxetine 30 MG CAP (CYMBALTA) PO SCH (08:22)
[2019-04-20] MEDS: GABAPENTIN 100 MG CAP PO SCH (08:22)
[2019-04-20] MEDS: FAMOTIDINE 20 MG TAB PO SCH (08:23)
[2019-04-20] MEDS: FUROSEMIDE 80 MG TAB PO SCH (08:23)
[2019-04-20 08:24] VITALS: BP 152/57
[2019-04-20] MEDS: DOCUSATE SODIUM 100 MG CAP PO SCH (08:24)
[2019-04-20] MEDS: CARVedilol 6.25 MG TAB PO SCH (08:24)
[2019-04-20] MEDS: ASPIRIN 81 MG ENTERIC TAB PO SCH (08:24)
[2019-04-20] MEDS: LIDOCAINE 5% (LIDODERM) PATCH TD SCH (08:25)
--- NOTE | 2019-04-20 13:13 | DS.PDOC ---
Discharge Summary General Date of Admission Apr 17, 2019 at 13:12 Date of Discharge 04/20/2019 Discharge Summary PROCEDURES PERFORMED DURING STAY: [None]. ADMITTING DIAGNOSES / DISCHARGE DIAGNOSES: Intractable right chest wall pain - likely 2/2 rib contusion 2/2 mechanical fall Mechanical fall ESRD on HD (MWF) Urinary tract infection HTN CAD TIA IDDM2 Neuropathy GERD DVT prophylaxis COMPLICATIONS/CHIEF COMPLAINT: Right-sided rib pain HISTORY OF PRESENT ILLNESS: Patient is an 79-year-old female with a past medical history of end- stage renal disease on hemodialysis, diabetes mellitus, coronary artery disease, TIA, who was sent from dialysis. Patient reported that the day prior. She was ambulating in her flip-flops and had fallen on her right side. Patient reported that she did not lose consciousness but did experience trauma to her chest wall. Patient thought nothing of it and came for dialysis the subsequent day. . Upon evaluation in the emergency room, patient was found to have no acute fractures, but was admitted to hospitalist service because of intractable chest wall pain. HOSPITAL COURSE: Intractable right chest wall pain - likely 2/2 rib contusion 2/2 mechanical fall - Reported pain reduction - Hemodynamically stable / afebrile - Labs are unremarkable - Chest CT 04/12: No acute or concerning focal thoracic abnormality. Atherosclerotic change and ectasia of the aorta. Prominent mediastinal lymphadenopathy measuring up to 13 mm short axis. No bulky adenopathy - c/w pain control; Tramadol (adjusted dose 2/2 hallucinations) - c/w PT & OT; patient is cleared for discharge home with continued therapy at home Mechanical fall - Head CT 04/12: 1. Chronic small vessel white matter ischemic changes of aging in both hemispheres, stable. No acute infarct. 2. No intracranial hemorrhage, mass, mass effect or edema. 3. Cortical atrophy and ventriculomegaly in propor tion and unchanged from 01/25/2019. 4. No fracture or focal lesion of the skull base or calvarium. - CXR 04/12: Cardiomegaly. Chronic interstitial densities in the lungs. No new infiltrate. - CT abdomen 04/12: 1. No acute surgical or inflammatory intra-abdominal or pelvic process. 2. Right punctate nonobstructive renal calculi. No hydronephrosis or ureter stone. ESRD on HD (MWF) - Will go for HD today - Nephrology on consult Urinary tract infection - UA consistent with infection - Urine culture 04/12: Strep viridans - s/p Vancomycin with HD / Ciprofloxacin (Completed 7 day course) HTN - Bp well controlled - c/w Amlodipine, Carvedilol, CAD - c/w ASA, Plavix and Atorvastatin TIA - c/w ASA, Plavix and Atorvastatin IDDM2 - c/w ISS and Levemir Neuropathy - c/w Gabapentin GERD - c/w Famotidine DVT prophylaxis - c/w Heparin DISCHARGE MEDICATIONS: Please see below. ALLERGIES: Please see below. PHYSICAL EXAMINATION ON DISCHARGE: Vitals (See below) General: Lying in bed, no acute distress, comfortable, AAOx3 HEENT: NC, AT CVS: +S1S2 Lungs: Fair air entry b/l, auscultation without rhonchi, rales or wheezing Abdomen: Soft, nondistended and nontender Extremities: No evidence of lower extremity edema, - Calf tenderness LABORATORY DATA: Please see below. ACTIVITY: [As tolerated]. DISCHARGE PLAN: Follow-up with Dr. Cathy Kelley within 7 days Remain compliant with treatment plan and medications Return to the ER if he experiences any problems DISPOSITION: Home Health Service. DISCHARGE CONDITION: [Stable]. TIME SPENT ON DISCHARGE: 37 minutes Vital Signs/I&Os Vital Signs Date Time Temp Pulse Resp B/P (MAP) Pulse Ox O2 Delivery O2 Flow Rate FiO2 04/20/19 08:24 67 152/57 04/20/19 06:00 98.4 18 98 04/19/19 14:00 I&O- Last 24 Hours up to 6 AM 04/20/19 06:00 Intake Total 1500 ml Output Total 1750 ml Balance -250 ml Laboratory Data Labs 24H Laboratory Tests 2 04/19/19 16:26: Bedside Glucose (Misc Panel) 162H 04/19/19 20:19: Bedside Glucose (Misc Panel) 178H 04/20/19 06:20: Anion Gap 5L, Glomerular Filtration Rate 12.8L, Blood Urea Nitrogen 34H, Creatinine 3.64H, Sodium Level 139, Potassium Level 4.2, Chloride Level 104, Carbon Dioxide Level 30, Calcium Level 9.5 04/20/19 11:57: Bedside Glucose (Misc Panel) 92 CBC/BMP Laboratory Tests 04/20/19 06:20 Calcium Level 9.5 FSBS Laboratory Tests Test 04/19/19 16:26 04/19/19 20:19 04/20/19 11:57 Range/Units Bedside Glucose (Misc Panel) 162 178 92 83-110 MG/DL Microbiology Microbiology 04/12/19 Urine Culture - Final, Complete Strep Alactolyticus (Viridans) Discharge Medications Scheduled Amlodipine Besylate (Amlodipine Besylate) 10 Mg Tablet, 10 MG PO DAILY, (Reported) Aspirin (Aspirin EC) 81 Mg Tab, 81 MG PO DAILY, (Reported) Atorvastatin Calcium (Atorvastatin Calcium) 40 Mg Tablet, 40 MG PO DAILY, (Reported) Calcitriol (Calcitriol) 0.25 Mcg Capsule, 0.25 MCG PO BID, (Reported) Carvedilol (Coreg) 6.25 Mg Tab, 6.25 MG PO DAILY, (Reported) Clopidogrel Bisulfate (Plavix) 75 Mg Tab, 75 MG PO DAILY, (Reported) Duloxetine Hcl (Cymbalta) 30 Mg Cap, 30 MG PO DAILY, (Reported) Famotidine (Famotidine) 20 Mg Tablet, 20 MG PO BID, (Reported) Furosemide (Furosemide) 80 Mg Tablet, 80 MG PO BID, (Reported) Gabapentin (Gabapentin) 100 Mg Capsule, 100 MG PO BID, (Reported) Insulin Glargine (Lantus) 1 Units/0.01 Ml Susp, 20 UNITS SC QHS, (Reported) Insulin Lispro (Humalog Kwikpen U-100) 100 Unit/Ml Inj, 6 UNITS SC AC, (Reported) Lidocaine (Lidocaine) 5% Adh..patch, 1 PATCH TD DAILY Lidocaine/Prilocaine (Lidocaine-Prilocaine Cream) 2.5%/2.5% Cream..g., 1 DOSE TOP 3XW, (Reported) 1 TO 2 HOURS BEFORE DIALYSIS ON WEDNESDAY, WEDNESDAY AND WEDNESDAY Patiromer Calcium Sorbitex (Veltassa) 8.4 Gm Powd.pack, 8.4 GM PO QWEEK, (Reported) SUNDAYS Salmeterol/Fluticasone (Advair 250-50 Diskus) 1 Each Blst.w.dev, 1 PUFF INH BID, (Reported) Vitamin D (Vitamin D3) 1,000 Unit Tablet, 2,000 UNITS PO DAILY, (Reported) Scheduled PRN Albuterol Sulfate (Proair Hfa) 8.5 Gm Hfa.aer.ad, 2 PUFF INH Q4H PRN for SOB/WHEEZING, (Reported) Ondansetron HCl (Zofran) 4 Mg Tablet, 4 MG PO Q6H PRN for NAUSEA OR VOMITING, (Reported) Polyethylene Glycol 3350 (Miralax) 119 Gm Powder, 17 GM PO DAILY PRN for CONSTIPATION, (Reported) Tramadol HCl (Tramadol HCl) 50 Mg Tablet, 50 MG PO BID PRN for PAIN, (Reported) Tramadol HCl (Tramadol HCl) 50 Mg Tablet, 50 MG PO Q8HP PRN for PAIN Allergies Coded Allergies: ceftriaxone (Verified Allergy, Severe, SOB, hives,, 01/25/19) Penicillins (Verified Allergy, Intermediate, unknown , 01/25/19) codeine (Verified Allergy, Intermediate, hives/ rash, 01/25/19) nitroglycerin (Verified Allergy, Intermediate, unknown , 01/25/19) Sulfa (Sulfonamide Antibiotics) (Verified Adverse Reaction, Intermediate, dizziness, 01/25/19) REGINALD POP MD Apr 20, 2019 13:13
--- NOTE | 2019-04-20 19:16 | IPN ---
DATE: 04/20/2019 SUBJECTIVE: Patient was seen and examined this morning. She continues to complain of right-sided rib pain. She had received dialysis yesterday. She has no new complaints today. She is currently planning on being discharged today. She has a right upper extremity fistula. OBJECTIVE: VITAL SIGNS: Temperature 98.4, pulse 67, respiratory rate 18, blood pressure 152/57, pulse oximetry 98% on room air. GENERAL: Patient is awake, alert and oriented. She does not appear to be in any acute distress. She is sitting comfortably in her chair. She is conversant. HEENT: Eyes are nonicteric. Trachea is midline. Mucous membranes are pink and moist. NECK: Neck is supple. No jugular venous distention noted. CARDIOVASCULAR: Normal S1, S2. Regular rate and rhythm. No clicks, rubs or murmurs auscultated. PULMONARY: Clear vesicular breath sounds bilaterally. No wheezes, rhonchi or rales. Continued tenderness on palpation of the right chest wall and with pain on deep inspiration. ABDOMEN: Soft, nondistended, nontender to palpation in all four quadrants. Positive bowel sounds throughout. EXTREMITIES: No cyanosis or clubbing. No edema in the bilateral lower extremities. Patient has a fistula present in the right upper arm. PSYCHIATRIC: Mood and affect appear appropriate. LABORATORY DATA: Chemistries: Sodium 139, potassium 4.2, chloride 104, carbon dioxide 30, BUN 34, creatinine 3.64, fasting glucose 117. Calcium 9.5. ASSESSMENT AND PLAN: 1. End-stage renal disease on hemodialysis Wednesday, Wednesday and Wednesday. Patient received hemodialysis yesterday for her maintenance schedule. There have been no changes made to her prescription. Her volume status remains acceptable. Her electrolytes are within range. Patient has a fistula in the right upper extremity. She is due for dialysis on Wednesday as an outpatient. 2. Hypertension. Patient is continued on her hypertensive medications including amlodipine, carvedilol and Lasix. Her blood pressures have been well- controlled. Will continue. 3. Recurrent falls. Patient has recurrent falls and recent trauma to her right rib cage. She is currently receiving a lidocaine patch. She does have tramadol prescribed to her. She would likely benefit from rehabilitation going forward. 4. Grade 2 diastolic congestive heart failure. Patient's volume status remains well-compensated. She receives hemodialysis Wednesday, Wednesday, Wednesday. She is due for her next dialysis on Wednesday as an outpatient. MOSHE
== END 2019-04-20 12:15 | disposition home health service (06) | DRG 604 ==
LOC: EDBD 15:13 → M ED 15:13 → M ED INP 21:59 → M MS5PR 23:43 → OBSVTOIN 04-17 13:12
PROVIDERS: ADMIT Hospitalist; ATTEND Internal Medicine
PROC: 5A1D70Z Performance of Urinary Filtration, Intermittent, Less than 6 Hours Per Day (ICD-10-PCS; principal; 2019-04-17)
DX: S20.20XA Contusion of thorax, unspecified, initial encounter (principal); N18.6 End stage renal disease; N39.0 Urinary tract infection, site not specified; I13.2 Hypertensive heart and chronic kidney disease with heart failure and with stage 5 chronic kidney disease, or end stage renal disease; I50.32 Chronic diastolic (congestive) heart failure; E11.22 Type 2 diabetes mellitus with diabetic chronic kidney disease; I25.10 Atherosclerotic heart disease of native coronary artery without angina pectoris; E78.5 Hyperlipidemia, unspecified; E11.42 Type 2 diabetes mellitus with diabetic polyneuropathy; R55 Syncope and collapse; R29.6 Repeated falls; Z86.73 Personal history of transient ischemic attack (TIA), and cerebral infarction without residual deficits; Z79.82 Long term (current) use of aspirin; Z79.4 Long term (current) use of insulin; Z99.2 Dependence on renal dialysis; Z79.899 Other long term (current) drug therapy; Z88.0 Allergy status to penicillin; Z88.1 Allergy status to other antibiotic agents; Z88.2 Allergy status to sulfonamides; Z88.5 Allergy status to narcotic agent; Z88.8 Allergy status to other drugs, medicaments and biological substances; Z87.891 Personal history of nicotine dependence; W18.09XA Striking against other object with subsequent fall, initial encounter; Y92.009 Unspecified place in unspecified non-institutional (private) residence as the place of occurrence of the external cause

== ENCOUNTER 2019-07-12 14:17 | Inpatient (IN) | payer MEDICARE, MEDICAID ==
[~2019-07-12] VITALS: Ht 167.6 cm; Wt 74.0 kg
[~2019-07-12 14:17] MED LIST changes: +ADV250INH INH; +CHOL100029 PO; +FLUT1BLS5 IH; +FURO80TA2 PO; +LASI80TA3 PO; +LIDO2.5C15 TOP; +LIDO5TD TD; +PROAAER10 INH; +VELT1POW PO; -VITAD1000T PO
--- NOTE | 2019-07-12 15:07 | REP ---
CT brain without contrast: History: Altered mental status. Comparison head CT study April 12, 2019 and January 25, 2019. Findings: Preliminary digital plywood layup line back feeder radiograph is unremarkable. The patient is edentulous. Vascular calcifications noted in the distal carotid arteries bilaterally. The visualized paranasal sinuses are clear. The bony calvarium is intact. On soft tissue window settings, there is moderate generalized volume loss. There is no evidence of intracranial hemorrhage. There are periventricular low density areas in the white matter of the parietal lobes and frontal lobes bilaterally consistent with small vessel atherosclerotic changes. These findings are unchanged from the comparison study. There is no evidence of acute infarction, mass, extra-axial fluid collection or midline shift. Impression: Generalized volume loss. Small vessel atherosclerotic changes. Vascular calcification. No acute intracranial abnormality. Electronically Signed by Lopez Alexander MD 07/12/2019 03:53 P
[2019-07-12] MEDS ORDERED: CLON0.25 PO (15:58)
[2019-07-12] MEDS ORDERED: NYST1POW9 TOP (15:58)
[2019-07-12] MEDS ORDERED: ACET-897 PO (15:58)
[2019-07-12] MEDS ORDERED: VELP5CHW PO (15:58)
[2019-07-12 16:04] LABS: BASO % 0.3 % (0.0-1.0); EOS # 0.2 10^3/uL (0.0-0.5); EOS % 2.2 % (0.0-3.0); HEMATOCRIT 38.1 % (36.0-47.0); HEMOGLOBIN 12.2 g/dl (12.0-15.5); LYMPH # 2.2 10^3/uL (1.5-5.0); LYMPH % 32.9 % (24.0-44.0); MEAN CORPUSCULAR HEMOGLOBIN 32.3 pg (27.0-33.0); MEAN CORPUSCULAR VOLUME 100.8 fl (80.0-96.0); MONO # 0.9 10^3/uL (0.0-0.8); NEUTROPHILS # 3.4 10^3/uL (1.5-8.5); NEUTROPHILS % 50.3 % (36.0-66.0); PLATELET COUNT, AUTOMATED 271 10^3/uL (150-450); RED BLOOD COUNT 3.78 10^6/uL (4.00-5.40); WHITE BLOOD COUNT 6.7 10^3/uL (4.0-10.0)
[2019-07-12 16:51] LABS: ALBUMIN 3.2 GM/DL (3.2-5.2); BILIRUBIN,DIRECT 0.1 MG/DL (0.0-0.2); BILIRUBIN,TOTAL 0.4 MG/DL (0.2-1.0); CK-MB VALUE MASS 2.7 NG/ML (<3.6); CREATININE FOR GFR 4.23 MG/DL (0.55-1.30); GLOMERULAR FILTRATION RATE 10.7 (>32); MB/CK RELATIVE INDEX 2.31 (< OR =4); POTASSIUM SERUM 3.8 MEQ/L (3.5-5.1); TOTAL PROTEIN 7.1 GM/DL (6.4-8.2); TROPONIN I 0.05 NG/ML (< 0.10)
[2019-07-13] VITALS (7 sets, daily range): BP systolic 128–189; BP diastolic 56–68
[2019-07-13] MEDS ORDERED: MIRALAX *UNIT DOSE* 17GM PACKET PO PRN (02:15)
[2019-07-13] MEDS ORDERED: ONDANSETRON 4 MG TAB (S0181) PO PRN (02:15)
[2019-07-13] MEDS ORDERED: traMADol 50 MG TAB PO PRN (02:15)
[2019-07-13] MEDS ORDERED: NYSTATIN 100,000 UNITS/GM TOPICAL PWD 15 GM TOP PRN (02:15)
[2019-07-13] MEDS ORDERED: clonazePAM 0.5 MG TAB PO PRN (02:15)
[2019-07-13] MEDS ORDERED: ADVAIR HFA 115/21MCG INHALER INH PRN (02:15)
[2019-07-13] MEDS ORDERED: ALBUTEROL 90 MCG/ACT 8GM HFA INHALER INH PRN (02:15)
[2019-07-13] MEDS ORDERED: PILL CUTTER 1 EACH XX PRN (02:30)
[2019-07-13] MEDS: LEVEMIR (INSULIN DETEMIR) 1 UNITS/0.01ML SC SCH ×2 (02:52→21:00)
[2019-07-13] MEDS: CALCITRIOL 0.25 MCG CAP (S0169) PO SCH ×3 (02:52→21:00)
[2019-07-13] MEDS: GABAPENTIN 100 MG CAP PO SCH ×3 (02:52→21:00)
[2019-07-13] MEDS ORDERED: SLF 3 ML SYR IV PRN (03:00)
[2019-07-13 03:11] LABS: APPEARANCE, URINE CLOUDY (CLEAR); BACTERIA, URINE AUTO 3+ (NEGATIVE); BILIRUBIN, URINE AUTO NEGATIVE (NEGATIVE); BLOOD, URINE BLOOD 1+ (NEGATIVE); COLOR, URINE YELLOW (YELLOW); GLUCOSE, URINE (UA) AUTO 3+ mg/dL (NEGATIVE); KETONE, URINE AUTO NEGATIVE (NEGATIVE); LEUKOCYTE ESTERASE, URINE AUTO 3+ (NEGATIVE); MUCUS, URINE SMALL (NEGATIVE); NITRITE, URINE AUTO NEGATIVE (NEGATIVE); PROTEIN, URINE AUTO 3+ mg/dL (NEGATIVE); RBC, URINE AUTO 8 /HPF (0-3); SPECIFIC GRAVITY URINE AUTO 1.008 (1.002-1.035); SQUAMOUS EPITHELIAL CELL UR AU 1 /HPF (0-6); UROBILINOGEN, URINE AUTO 0.2 mg/dL (0.0-2.0); WBC, URINE AUTO TNTC /HPF (0-3)
[2019-07-13] MEDS: cloNIDine 0.1 MG TAB PO SCH ×2 (03:31→21:00)
[2019-07-13] MEDS: SLF 3 ML SYR IV SCH ×3 (04:56→22:37)
[2019-07-13] MEDS ORDERED: DOXYCYCLINE HYCLATE 100 MG TAB PO SCH ×2 (05:30→18:00)
[2019-07-13] MEDS: amLODIPine 10 MG TAB PO SCH (06:05)
[2019-07-13 07:12] LABS: HEMOGLOBIN 11.4 g/dl (12.0-15.5); MEAN CORPUSCULAR HEMOGLOBIN 32.2 pg (27.0-33.0); MEAN CORPUSCULAR HGB CONC 31.7 g/dl (32.0-36.5); MEAN CORPUSCULAR VOLUME 101.7 fl (80.0-96.0); PLATELET COUNT, AUTOMATED 272 10^3/uL (150-450); RED BLOOD COUNT 3.54 10^6/uL (4.00-5.40); WHITE BLOOD COUNT 7.4 10^3/uL (4.0-10.0)
[2019-07-13] MEDS: HumaLOG INSULIN (NovoLOG) PER UNIT SC SCH ×3 (07:30→17:30)
[2019-07-13 07:33] LABS: CALCIUM LEVEL 9.1 MG/DL (8.8-10.2); CREATININE FOR GFR 5.34 MG/DL (0.55-1.30); GLOMERULAR FILTRATION RATE 8.2 (>32); POTASSIUM SERUM 4.2 MEQ/L (3.5-5.1)
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
[2019-07-13] MEDS: SUCROFERRIC OXYHYDROXIDE 500MG CHEW TAB (VELPHORO) PO SCH ×3 (08:00→17:48)
[2019-07-13] MEDS: CARVedilol 6.25 MG TAB PO SCH (08:22)
[2019-07-13] MEDS: DULoxetine 30 MG CAP (CYMBALTA) PO SCH (08:23)
[2019-07-13] MEDS: ASPIRIN 81 MG ENTERIC TAB PO SCH (08:23)
[2019-07-13] MEDS: ATORVASTATIN 20 MG TAB PO SCH (08:23)
[2019-07-13] MEDS: FAMOTIDINE 20 MG TAB PO SCH (08:24)
[2019-07-13] MEDS: CLOPIDOGREL 75 MG TAB PO SCH (08:24)
[2019-07-13] MEDS: VITAMIN D 1,000 INTERNATIONAL UNITS TABLET PO SCH (08:24)
[2019-07-13] MEDS ORDERED: cloNIDine 0.1 MG TAB PO SCH (09:00)
[2019-07-13] MEDS ORDERED: FUROSEMIDE 80 MG TAB PO SCH (09:00)
[2019-07-13] MEDS ORDERED: VANCOMYCIN HCL 1,000 MG, VIAL MATE ADAPTER 1 EACH in D5W 250 ML IV SCH (09:45)
--- NOTE | 2019-07-13 10:47 | ECGEPIP ---
[facility] - ED Test Date: 2019-07-12 Pat Name: DEION JADE Department: Room: - Gender: Female Group Controller: : [id number] Requested By: Jennifer Robert Order Number: [id number] Reading MD: Jennifer Robert Measurements Intervals [place] Rate: 67 P: 14 W[place]: 165 QRS: 87 QRSD: 136 T: -36 QT: 469 QTc: 497 Interpretive Statements SINUS RHYTHM WITH SINUS ARRHYTHMIA RIGHT BUNDLE BRANCH BLOCK MODERATE T-WAVE ABNORMALITY, CONSIDER ISCHEMIA LVH Electronically Signed on 07-13-2019 10:47:25 EDT by Jennifer Robert
[2019-07-13] MEDS ORDERED: HEPARIN 1,000 UNITS/ML 10ML VIAL (FOR RADIOLOGY& DIALYSIS ONLY) IV ONE (11:00)
[2019-07-13] MEDS ORDERED: LIDOCAINE 1% SDV 5 ML VIAL SQ ONE (11:00)
--- NOTE | 2019-07-13 13:51 | CR ---
DATE OF CONSULTATION: 07/13/2019 REASON FOR CONSULTATION: To assist in the management of end-stage renal disease. HISTORY OF PRESENT ILLNESS: Mrs. Loco is an 79-year-old female with known history of longstanding diabetes, hypertension, coronary artery disease with prior myocardial infarction (CA), history of transient ischemic attack (TIA), history of recurrent UTIs and anemia. She was in hemodialysis yesterday for her regular treatment when she developed altered mentation. She was sent to the emergency room and got admitted. CT scan of her head was negative and the patient was noticed to have a UTI for which she is being treated. It is important to note that she had been treated for a UTI just last month. The patient had only 1 hour of dialysis treatment yesterday and nephrology consultation was requested. The patient is seen this morning. PAST MEDICAL AND SURGICAL HISTORY: Significant for: 1. A longstanding history of type 2 diabetes. 2. Hypertension. 3. End-stage renal disease. 4. Coronary artery disease. 5. History of TIA. 6. History of basal cell carcinoma status post resection. 7. History of recurrent UTIs. 8. Anemia. 9. Secondary hyperparathyroidism. PAST SURGICAL HISTORY: Significant for: Tonsillectomy. Appendectomy. Basal cell carcinoma. AV fistula. PERSONAL AND SOCIAL HISTORY: The patient is and lives by herself in [facility]. She has no alcohol or drug use. She does have history of smoking but she smokes only occasionally now. FAMILY HISTORY: Significant for diabetes, kidney disease and congestive heart failure. ALLERGIES: The patient has allergies to PENICILLIN and ROCEPHIN. MEDICATIONS: Her home medications include: - aspirin 81 mg daily - amlodipine 10 mg daily - atorvastatin 40 mg daily - calcitriol 0.25 mcg daily - carvedilol 6.25 mg b.i.d. - Plavix 75 mg daily - Cymbalta 30 mg daily - famotidine 20 mg b.i.d. - furosemide 80 mg b.i.d. - gabapentin 100 mg b.i.d. - Lantus insulin 20 units daily - Humalog insulin per sliding scale - Velphoro 500 mg with meals - vitamin D 1000 units daily REVIEW OF SYSTEMS: Patient was quite confused yesterday in the emergency room; however, this morning she is feeling much better. She denies any fever or chills. Ears, nose and throat are unremarkable. Cardiovascular system is significant for congestive heart failure and lower extremity edema. She denies any chest pain or palpitations. Respiratory system negative for hemoptysis or pleuritic type of chest pain. Gastrointestinal (GI) system is negative for vomiting or diarrhea. Genitourinary () system is significant for dysuria and frequency. She has been treated for urinary tract infections. Musculoskeletal system is significant for chronic back pain and generalized degenerative arthritis. Neurological system is significant for peripheral neuropathy and a prior history of TIA. Hematological system is significant for anemia of chronic kidney disease. Psychosocial system is significant for depression and anxiety. PHYSICAL EXAMINATION: This morning the patient is awake and she is oriented to place and person. Temperature 96.8 degrees Fahrenheit, heart rate 80 per minute and respiratory rate 18 per minute. Blood pressure 152/58 mmHg and oxygen saturation 100%. Head is atraumatic. Ears, nose and throat are unremarkable. Neck veins are mildly distended and there is no thyroid enlargement. Heart sounds are regular and lungs with few basilar crepitations. Abdomen soft and nontender and bowel sounds are normal. Extremities without any cyanosis or clubbing. Neurologically she is awake, alert and at her baseline mentation. LABORATORY DATA: Today her WBC count is 7.4, hemoglobin 11.4 and hematocrit 36.0. Platelets 272. Sodium 140, potassium 4.2, CO2 28, BUN 31 and creatinine 5.34. Glucose 125 and calcium 9.1. Urinalysis showed too numerous to count WBCs and 3+ leukocyte esterase with 3+ bacteria. Urine culture is pending. Her prior urine culture in April was positive for strep viridans. PROBLEMS: 1. End-stage renal disease. The patient received only about 1 hour of dialysis treatment yesterday. We will dialyze her for 3 hours today. 2. Congestive heart failure. Her volume status is only mildly decompensated and will try to remove about 1.5 to 2 liters of fluid. 3. Altered mentation. CT scan of her head did not show any acute infarct. She probably had altered mentation related to urinary tract infection. Her prior to urine culture was positive for strep viridans, which was resistant to doxycycline and several other medications. We will give her vancomycin 1 gram after dialysis today pending urine culture. Thank you for involving me in the care of Mrs. Loco. I will follow her along with you.
[2019-07-13] MEDS: **VANCO AFTER HD** MISC XX SCH (16:00)
--- NOTE | 2019-07-13 17:03 | IPNPDOC ---
Text Note Date of Service The patient was seen on 07/13/19. NOTE SUBJECTIVE: Ms. Loco has not had any additional hallucinations. Her behavior has been essentially normal. Her complaint is of GI discomfort with some pain and nausea. It is minimally improved with Zofran. The patient does have end-stage renal disease that is hemodialysis requiring and has continued with her hemodialysis schedule. OBJECTIVE: Please see vital signs below Physical exam: General: Patient is fully conversant, communicates mild abdominal distress and decreased urine output HENT: Oral mucosa is tacky, no scleral injection, neck is otherwise supple with no lymphadenopathy. Cardiovascular: Regular rate and rhythm, no appreciable murmur. Respiratory: Clear to auscultation, no rhonchi, rales, wheezes or cough. Abdomen: Soft, nondistended, mild epigastric tenderness but no guarding or rebound, mild central obesity relative to her overall body habitus Extremities: No peripheral edema, pedal pulses are readily palpable Neuro: No focal neuromotor or sensory deficit ASSESSMENT/PLAN: 1. Hallucinations. The etiology is unclear and they appeared to have resolved. They have not recurred. 2. Chronic kidney disease stage V. This is hemodialysis requiring. She continues with her dialysis schedule inclusive of today. 3. Abdominal discomfort. Patient has had nausea and discomfort minimally responsive to Zofran. She has not had any vomiting although she states she would like to. Patient is otherwise somewhat cleared to be discharged to home; as she is having abdominal discomfort I will reevaluate her. If she is tolerating meals I will let her be discharged to home tomorrow. VS,Fishbone, I+O VS, Fishbone, I+O Laboratory Tests 07/13/19 07:01 Red Blood Count 3.54 L, Mean Corpuscular Volume 101.7 H, Mean Corpuscular Hemoglobin 32.2, Mean Corpuscular Hemoglobin Concent 31.7 L, Red Cell Distribution Width 14.2, Calcium Level 9.1 Vital Signs Date Time Temp Pulse Resp B/P (MAP) Pulse Ox O2 Delivery O2 Flow Rate FiO2 07/13/19 15:33 97.5 66 18 142/63 (89) 97 07/12/19 18:45 Room Air I&O- Last 24 Hours up to 6 AM 07/13/19 06:00 Output Total 80 ml Balance -80 ml NADINE RAMOS MD Jul 13, 2019 17:03
[2019-07-14] VITALS: BP 152/50
[2019-07-14 04:00] VITALS: BP 140/50
[2019-07-14] MEDS: SLF 3 ML SYR IV SCH ×3 (06:27→21:56)
[2019-07-14 06:32] LABS: HEMATOCRIT 37.2 % (36.0-47.0); HEMOGLOBIN 11.4 g/dl (12.0-15.5); MEAN CORPUSCULAR HEMOGLOBIN 31.2 pg (27.0-33.0); MEAN CORPUSCULAR HGB CONC 30.6 g/dl (32.0-36.5); MEAN CORPUSCULAR VOLUME 101.9 fl (80.0-96.0); PLATELET COUNT, AUTOMATED 272 10^3/uL (150-450); RED BLOOD COUNT 3.65 10^6/uL (4.00-5.40); WHITE BLOOD COUNT 8.1 10^3/uL (4.0-10.0)
[2019-07-14 07:00] LABS: CREATININE FOR GFR 4.42 MG/DL (0.55-1.30); GLOMERULAR FILTRATION RATE 10.2 (>32); POTASSIUM SERUM 4.4 MEQ/L (3.5-5.1)
[2019-07-14 08:00] VITALS: BP 148/68
[2019-07-14] MEDS: SUCROFERRIC OXYHYDROXIDE 500MG CHEW TAB (VELPHORO) PO SCH ×3 (08:32→17:53)
[2019-07-14] MEDS: HumaLOG INSULIN (NovoLOG) PER UNIT SC SCH ×3 (08:32→17:53)
[2019-07-14] MEDS: CLOPIDOGREL 75 MG TAB PO SCH (08:33)
[2019-07-14] MEDS: ASPIRIN 81 MG ENTERIC TAB PO SCH (08:33)
[2019-07-14] MEDS: amLODIPine 10 MG TAB PO SCH (08:33)
[2019-07-14] MEDS: FAMOTIDINE 20 MG TAB PO SCH (08:34)
[2019-07-14] MEDS: CARVedilol 6.25 MG TAB PO SCH (08:34)
[2019-07-14] MEDS: cloNIDine 0.1 MG TAB PO SCH ×2 (08:34→21:55)
[2019-07-14] MEDS: CALCITRIOL 0.25 MCG CAP (S0169) PO SCH ×2 (08:34→21:44)
[2019-07-14] MEDS: DULoxetine 30 MG CAP (CYMBALTA) PO SCH (08:34)
[2019-07-14] MEDS: GABAPENTIN 100 MG CAP PO SCH ×2 (08:34→21:44)
[2019-07-14] MEDS: VITAMIN D 1,000 INTERNATIONAL UNITS TABLET PO SCH (08:35)
[2019-07-14] MEDS: ATORVASTATIN 20 MG TAB PO SCH (08:35)
--- NOTE | 2019-07-14 11:12 | IPNPDOC ---
Date Seen The patient was seen on 07/14/19. Progress Note SUBJECTIVE: Patient was seen and examined at the bedside this morning. She appears to be doing well. She was nauseous to the point of inability to tolerate her afternoon meds yesterday. She was able to tolerate a small amount of food today. She is feeling much better. No complaints about breathing/urination/abdominal pain. OBJECTIVE PHYSICAL EXAMINATION: VITAL SIGNS: Please see below. GENERAL: sitting at the edge of the bed, appears stated age, calm, cooperative, in no acute distress HEENT: EOMI, PERRLA, normocephalic/atraumatic, neck is supple with no lymphadenopathy or thyromegaly CARDIOVASCULAR: JVD is normal, regular rate and rhythm, no murmurs/rubs/gallops RESPIRATORY: Clear to auscultation bilaterally with no adventitious breath sounds appreciated ABDOMINAL: soft, nontender, +BS, no masses/organomegaly EXTREMITIES: no clubbing/cyanosis/edema NEUROLOGICAL: CN 2-12 intact with no obvious focal deficits PSYCHOLOGICAL: AAOx3, normal mood/affect LABORATORY DATA, IMAGING STUDIES, MICROBIOLOGY: Please see below. ASSESSMENT AND PLAN: Shanda is an 79 YO F with history of ESRD presented with AMS at dialysis found to have UTI PROBLEMS: 1. ESRD: patient was dialyzed yesterday and 1.5L removed. She tolerated it well -She will continue with her usual dialysis schedule 2. CHF: Fluid status improved with dialysis. Not in current exacerbation. No SOB/peripheral edema -Stable 3. AMS: most likely 2/2 UTI -Vancomycin started -Pending urine cultures will transition to oral abx and can be discharged as long as she is feeling well with no nausea/AMS DISPOSITION: Pending clinical improvement and urine cultures. She is stable from the nephrology standpoint to be discharged and follow up with nephrology and usual dialysis schedule. VS, I&O, 24H, Fishbone Vital Signs/I&O Vital Signs Date Time Temp Pulse Resp B/P (MAP) Pulse Ox O2 Delivery O2 Flow Rate FiO2 07/14/19 08:34 140/50 07/14/19 08:34 70 07/14/19 08:00 98.6 17 97 07/12/19 18:45 Room Air I&O- Last 24 Hours up to 6 AM 07/14/19 05:59 Intake Total 240 ml Output Total 1500 ml Balance -1260 ml Laboratory Data 24H LABS Laboratory Tests 2 07/13/19 14:00: Bedside Glucose (Misc Panel) 112H 07/13/19 14:48: Methicillin-Resist S.aureus DNA PCR NOT DETECTED 07/13/19 17:36: Bedside Glucose (Misc Panel) 171H 07/13/19 20:22: Bedside Glucose (Misc Panel) 189H 07/14/19 03:55: Bedside Glucose (Misc Panel) 111H 07/14/19 06:22: Nucleated Red Blood Cells % (auto) 0.0, Anion Gap 5L, Glomerular Filtration Rate 10.2L, Blood Urea Nitrogen 18, Creatinine 4.42H, Sodium Level 140, Potassium Level 4.4, Chloride Level 104, Carbon Dioxide Level 31, Calcium Level 9.0 CBC/BMP Laboratory Tests 07/14/19 06:22 Red Blood Count 3.65 L, Mean Corpuscular Volume 101.9 H, Mean Corpuscular Hemoglobin 31.2, Mean Corpuscular Hemoglobin Concent 30.6 L, Red Cell Distribution Width 14.3, Calcium Level 9.0 Microbiology Microbiology 07/13/19 Urine Culture, Received Pending GME ATTESTATION GME ATTESTATION My faculty preceptor for this patient encounter was physically present during the encounter and was fully available. All aspects of the patient interview, examination, medical decision making process, and medical care plan development were reviewed and approved by the faculty preceptor. The faculty preceptor is aware and concurs with the plan as stated in the body of this note and will attest to such by his/her cosignature. JESUS FAUST MD Jul 14, 2019 11:12
[2019-07-14 12:00] VITALS: BP 110/52
[2019-07-14] MEDS: **VANCO AFTER HD** MISC XX SCH (15:03)
--- NOTE | 2019-07-14 15:38 | IPNPDOC ---
Text Note Date of Service The patient was seen on 07/14/19. NOTE SUBJECTIVE: Ms. Loco remains appropriate and conversant. She has not exhibited any signs of abnormal thinking or hallucinations. She was initially admitted for such from dialysis. Yesterday she complained of abdominal distress and nausea; this has resolved. OBJECTIVE: Please see vital signs below. Physical exam: General: Patient is fully conversant HENT: Oral mucosa is tacky, no scleral injection, neck is otherwise supple with no lymphadenopathy. Cardiovascular: Regular rate and rhythm, no appreciable murmur. Respiratory: Clear to auscultation, no rhonchi, rales, wheezes or cough. Abdomen: Soft, nondistended, mild epigastric tenderness but no guarding or rebound, mild central obesity relative to her overall body habitus Extremities: No peripheral edema, pedal pulses are readily palpable, dialysis fistula site is to her right upper extremity Neuro: No focal neuromotor or sensory deficit, she has been ambulatory with a walker ASSESSMENT/PLAN: 1. Hallucinations. The etiology is unclear and they appeared to have resolved. They have not recurred. 2. Chronic kidney disease stage V. This is hemodialysis requiring. She continues with her dialysis schedule, which is usually Wednesday, Wednesday and Wednesday. As she dialyzed yesterday she will not dialyze today. 3. Abdominal discomfort. Patient had had nausea and discomfort minimally responsive to Zofran. She has not had any vomiting. This has resolved and she is tolerant of small-volume diet Patient is otherwise cleared to be discharged to home as she is tolerating meals. Nursing staff feels that she is weak and may possibly not be safe for return to her long-term facility. She is being assessed by physical therapy services. VS,Per, I+O VS, Per, I+O Laboratory Tests 07/14/19 06:22 Red Blood Count 3.65 L, Mean Corpuscular Volume 101.9 H, Mean Corpuscular Hemoglobin 31.2, Mean Corpuscular Hemoglobin Concent 30.6 L, Red Cell Distribution Width 14.3, Calcium Level 9.0 Vital Signs Date Time Temp Pulse Resp B/P (MAP) Pulse Ox O2 Delivery O2 Flow Rate FiO2 07/14/19 12:00 97.5 63 17 110/52 (71) 96 07/12/19 18:45 Room Air I&O- Last 24 Hours up to 6 AM 10/11/19 06:00 Intake Total 240 ml Output Total 1500 ml Balance -1260 ml NADINE RAMOS MD Jul 14, 2019 15:37
[2019-07-14 16:00] VITALS: BP 152/70
[2019-07-14 20:00] VITALS: BP 135/63
[2019-07-14] MEDS: ACETAMINOPHEN 500 MG TAB PO PRN (21:45)
[2019-07-14] MEDS: LEVEMIR (INSULIN DETEMIR) 1 UNITS/0.01ML SC SCH (21:56)
[2019-07-15] VITALS: BP 125/60
[2019-07-15 04:00] VITALS: BP 110/56
[2019-07-15] MEDS: SLF 3 ML SYR IV SCH ×3 (05:19→20:44)
[2019-07-15 08:00] VITALS: BP 102/52
[2019-07-15] MEDS: SUCROFERRIC OXYHYDROXIDE 500MG CHEW TAB (VELPHORO) PO SCH ×4 (08:00→17:36)
[2019-07-15] MEDS: HumaLOG INSULIN (NovoLOG) PER UNIT SC SCH ×3 (08:42→17:36)
[2019-07-15] MEDS ORDERED: LevoFLOXacin 250 MG TABLET PO SCH (11:00)
[2019-07-15 13:35] VITALS: BP 150/66
[2019-07-15] MEDS: VITAMIN D 1,000 INTERNATIONAL UNITS TABLET PO SCH (13:37)
[2019-07-15] MEDS: amLODIPine 10 MG TAB PO SCH (13:38)
[2019-07-15] MEDS: CLOPIDOGREL 75 MG TAB PO SCH (13:38)
[2019-07-15] MEDS: ASPIRIN 81 MG ENTERIC TAB PO SCH (13:38)
[2019-07-15] MEDS: ATORVASTATIN 20 MG TAB PO SCH (13:39)
[2019-07-15] MEDS: cloNIDine 0.1 MG TAB PO SCH ×2 (13:39→20:44)
[2019-07-15] MEDS: CALCITRIOL 0.25 MCG CAP (S0169) PO SCH ×2 (13:39→20:44)
[2019-07-15] MEDS: CARVedilol 6.25 MG TAB PO SCH (13:39)
[2019-07-15] MEDS: GABAPENTIN 100 MG CAP PO SCH ×2 (13:40→20:44)
[2019-07-15] MEDS: DULoxetine 30 MG CAP (CYMBALTA) PO SCH (13:40)
[2019-07-15] MEDS: FAMOTIDINE 20 MG TAB PO SCH (13:40)
--- NOTE | 2019-07-15 13:59 | IPNPDOC ---
Text Note Date of Service The patient was seen on 07/15/19. NOTE SUBJECTIVE: Ms. Loco is doing well today. She is wanting to go home. She is about to depart for dialysis today. She had been admitted with concerns for hallucinations, but has not had any since she was admitted. OBJECTIVE: See vital signs below Physical exam: General: Patient is fully conversant HENT: Oral mucosa is tacky, no scleral injection, neck is otherwise supple with no lymphadenopathy. Cardiovascular: Regular rate and rhythm, no appreciable murmur. Respiratory: Clear to auscultation, no rhonchi, rales, wheezes or cough. Abdomen: Soft, nondistended, mild epigastric tenderness but no guarding or rebound, mild central obesity relative to her overall body habitus Extremities: No peripheral edema, pedal pulses are readily palpable, dialysis fistula site is to her right upper extremity Neuro: No focal neuromotor or sensory deficit, she has been ambulatory with a walker ASSESSMENT/PLAN: 1. Hallucinations. The etiology is unclear and they have not recurred. 2. Chronic kidney disease stage V. This is hemodialysis requiring. She continues with her dialysis schedule, which is usually Wednesday, Wednesday and Wednesday. As she did not go home yesterday. She is dialyzing today. 3. Abdominal discomfort. Patient had had nausea and discomfort minimally responsive to Zofran. She has not had any vomiting. This has resolved and she is tolerant of small-volume diet. 4. Urinary tract infection. The patient apparently had a urinary tract infection. Urine culture is positive for Raoultella planticola. The patient had been on doxycycline pending sensitivities. This is been stopped and she has been placed on renally dosed Levaquin. Patient was otherwise cleared to be discharged to home as she is tolerating meals. Nursing staff feels that she was weak and may possibly not be safe for return to her correction facility. She was assessed by physical therapy services and although she is ambulatory with a walker she is at times weak. She does not want to go to any sort of rehabilitation facility. She is willing to have physical therapy at home which she has had in the past and done well with. VS,Fishbone, I+O VS, Fishbone, I+O Vital Signs Date Time Temp Pulse Resp B/P (MAP) Pulse Ox O2 Delivery O2 Flow Rate FiO2 07/15/19 08:00 97.9 63 17 102/52 (66) 98 07/12/19 18:45 Room Air I&O- Last 24 Hours up to 6 AM 07/15/19 06:00 Intake Total 660 ml Output Total 200 ml Balance 460 ml NADINE RAMOS MD Jul 15, 2019 13:59
[2019-07-15 16:00] VITALS: BP 131/71
--- NOTE | 2019-07-15 16:12 | IPN ---
DATE: 07/15/2019 SUBJECTIVE: The patient was seen and examined at the bedside today morning during hemodialysis. She is tolerating the hemodialysis procedure well. She denies any active complaints. She is much more awake and alert today. Urine culture results came back today, Raoultella planticola, which is sensitive to Levaquin. She denies any other active complaints. OBJECTIVE: Vital signs: Temperature is 98.2 degrees Fahrenheit, blood pressure 150/66, pulse is 65, respiratory of 18, saturating 94% on room air. Intake and output: There is no urine output recorded. Weight in the bed scale was 80.9 mL yesterday. PHYSICAL EXAMINATION: GENERAL: The patient is awake, alert, oriented times three, lying in bed getting hemodialysis done. HEAD AND NECK : Extraocular muscles intact. Pupils equally round and reactive to light. Mucous membranes are moist. Neck is supple. There is no jugular venous distention (JVD). CARDIOVASCULAR: S1, S2, regular rate. No edema of the bilateral lower extremities. RESPIRATORY: Chest is clear to auscultation bilaterally. Bilateral equal air entry. No rales or rhonchi. ABDOMEN: Soft, positive bowel sounds, nontender. MUSCULOSKELETAL: No clubbing or cyanosis. Pulses are 2+. AV ACCESS: She has a right upper arm arteriovenous (AV) fistula, which is being used for dialysis. CENTRAL NERVOUS SYSTEM: No focal deficit. Power is 5/5 in all extremities. LABORATORY REVIEW: CBC showed WBC of 8.1, hemoglobin 11.4, and that was from yesterday. BMP done yesterday showed a potassium of 4.4. Urine culture is growing Raoultella planticola, which is sensitive to Levaquin. CURRENT INPATIENT MEDICATIONS: The patient's medications were all reviewed by me. Intravenous (IV) vancomycin was stopped. She was on Levaquin. I have changed the dose to 250 mg by mouth daily for a total of 5 days. No other change in the medications today as compared with yesterday. ASSESSMENT AND PLAN: 1. End-stage renal disease, on hemodialysis. Patient is being dialyzed today according to her regular schedule. Ultrafiltration goal will be around 1.5 liters as tolerated by her blood pressure. 2. Urinary tract infection. The patient is growing Raoultella in the cultures. She has been started on oral Levaquin. IV vancomycin is being stopped. 3. Metabolic encephalopathy. The patient is clinically significantly better. She is much more awake and alert, and she has been switched to oral antibiotics now.
[2019-07-15 20:00] VITALS: BP 126/60
[2019-07-15] MEDS: LEVEMIR (INSULIN DETEMIR) 1 UNITS/0.01ML SC SCH (20:44)
[2019-07-16] VITALS (7 sets, daily range): BP systolic 106–152; BP diastolic 55–70
[2019-07-16] MEDS: SLF 3 ML SYR IV SCH ×3 (05:48→20:14)
[2019-07-16] MEDS: SUCROFERRIC OXYHYDROXIDE 500MG CHEW TAB (VELPHORO) PO SCH ×3 (08:00→17:59)
[2019-07-16] MEDS: HumaLOG INSULIN (NovoLOG) PER UNIT SC SCH ×3 (09:54→17:58)
[2019-07-16] MEDS: LevoFLOXacin 250 MG TABLET PO SCH (09:54)
[2019-07-16] MEDS: ASPIRIN 81 MG ENTERIC TAB PO SCH (09:54)
[2019-07-16] MEDS: VITAMIN D 1,000 INTERNATIONAL UNITS TABLET PO SCH (09:55)
[2019-07-16] MEDS: CARVedilol 6.25 MG TAB PO SCH (09:55)
[2019-07-16] MEDS: CLOPIDOGREL 75 MG TAB PO SCH (09:55)
[2019-07-16] MEDS: amLODIPine 10 MG TAB PO SCH (09:55)
[2019-07-16] MEDS: cloNIDine 0.1 MG TAB PO SCH ×2 (09:55→20:14)
[2019-07-16] MEDS: CALCITRIOL 0.25 MCG CAP (S0169) PO SCH ×2 (09:55→20:13)
[2019-07-16] MEDS: ATORVASTATIN 20 MG TAB PO SCH (09:55)
[2019-07-16] MEDS: DULoxetine 30 MG CAP (CYMBALTA) PO SCH (09:56)
[2019-07-16] MEDS: FAMOTIDINE 20 MG TAB PO SCH (09:56)
[2019-07-16] MEDS: GABAPENTIN 100 MG CAP PO SCH ×2 (09:56→20:14)
--- NOTE | 2019-07-16 12:25 | IPNPDOC ---
Text Note Date of Service The patient was seen on 07/16/19. NOTE SUBJECTIVE: Ms. Loco is doing well today. She is tolerating her breakfast. She reports having an episode of severe abdominal cramping followed by large bowel movement last night. She has no residual distress. Patient had initially been admitted with concerns for hallucinations. OBJECTIVE: Please see vital signs below Physical exam: HENT:Oral mucosa is moist, no scleral injection, neck is otherwise supple with no lymphadenopathy. Cardiovascular: Regular rate and rhythm, no appreciable murmur. Respiratory: Clear to auscultation, no rhonchi, rales, wheezes or cough. Abdomen: Soft, nondistended, mild epigastric tenderness but no guarding or rebound, mild central obesity relative to her overall body habitus Extremities: No peripheral edema, pedal pulses are readily palpable, dialysis fistula site is to her right upper extremity Neuro: No focal neuromotor or sensory deficit, she has been ambulatory with a walker, complains of neuropathy with burning sensation to her legs ASSESSMENT/PLAN: 1. Hallucinations. The etiology is unclear and they have not recurred. 2. Chronic kidney disease stage V. This is hemodialysis requiring. She continues with her dialysis schedule, which is usually Wednesday, Wednesday and Wednesday. She last had dialysis on Wednesday after skipping Wednesday. Anticipate dialysis tomorrow hopefully prior to discharge. 3. Abdominal discomfort. Patient had had nausea and discomfort minimally responsive to Zofran. She has not had any vomiting. This has resolved and she is tolerant of small-volume diet. 4. Urinary tract infection. The patient apparently had a urinary tract infection. Urine culture is positive for Raoultella planticola. She has been placed on renally dosed Levaquin per sensitivities. Disposition: Patient will likely be discharged to home to her intermediate facility. She already has support services. We are anticipating she may need at- home physical therapy. VS,Fishbone, I+O VS, Fishbone, I+O Vital Signs Date Time Temp Pulse Resp B/P (MAP) Pulse Ox O2 Delivery O2 Flow Rate FiO2 07/16/19 09:55 141/64 07/16/19 09:55 65 07/16/19 08:00 99.2 18 100 07/12/19 18:45 Room Air I&O- Last 24 Hours up to 6 AM 07/16/19 06:00 Intake Total 760 ml Output Total 1500 ml Balance -740 ml NADINE RAMOS MD Jul 16, 2019 12:25
--- NOTE | 2019-07-16 16:53 | IPN ---
DATE: 07/16/2019 SUBJECTIVE: Patient was seen and examined at the bedside today morning. She is afebrile, hemodynamically stable. She denies any active complaints. She was started on oral Levaquin yesterday. She was also dialyzed yesterday. She tolerated the hemodialysis procedure well. OBJECTIVE: VITAL SIGNS: Temperature is 99 degrees Fahrenheit, blood pressure 124/56, pulse is 68, respiratory rate of 17, saturating 98% on room air. INTAKE AND OUTPUT: Urine output recorded is 100 mL. Ultrafiltration with hemodialysis was 1.5 liters. Weight in the bed scale is 78.9 kg. PHYSICAL EXAMINATION: GENERAL: Patient is awake, alert, oriented times three, laying in bed in no apparent distress. HEAD AND NECK EXAM: Extraocular muscles intact. Pupils equally round and reactive to light. Mucous membranes are moist. Neck is supple. There is no jugular venous distention (JVD). CARDIOVASCULAR: S1, S2. Regular rate. No edema of the bilateral lower extremities. RESPIRATORY: Chest is clear to auscultation bilaterally. Bilateral equal air entry. No rales or rhonchi. ABDOMEN: Soft. Positive bowel sounds. Nontender. MUSCULOSKELETAL: No clubbing or cyanosis. Pulses are 2+. She has right upper arm arteriovenous (AV) fistula with thrill and bruit. CENTRAL NERVOUS SYSTEM ([employer]AM MEMBER): No focal no focal deficit. Power is 5/5 in all extremities. LABORATORY REVIEW: Her complete blood count (CBC) and basic metabolic panel (BMP) are from 07/14/2019. There are no new labs available. CURRENT INPATIENT MEDICATIONS: Patient's medications were all reviewed by me. Vancomycin IV has been stopped. She continues to be on Levaquin 150 mg by mouth daily. No other change in the medications today as compared with yesterday. ASSESSMENT AND PLAN: 1. End-stage renal disease on hemodialysis. Patient's regular dialysis days are Wednesday, , Wednesday. She was dialyzed yesterday. Next hemodialysis will be on next Wednesday. 2. Urinary tract infection. Patient is currently on Levaquin 250 mg by mouth daily for Raoultella and urinary tract infection (UTI). 3. Metabolic encephalopathy. It was secondary to urinary tract infection (UTI). Patient is significantly clinically better. 4. Hypertension. Continue current dose of amlodipine 10 mg daily, Coreg 6.25 mg by mouth twice a day, clonidine 0.1 mg by mouth twice a day.
[2019-07-16] MEDS: LEVEMIR (INSULIN DETEMIR) 1 UNITS/0.01ML SC SCH (20:13)
[2019-07-17] MEDS: ACETAMINOPHEN 500 MG TAB PO PRN (00:41)
[2019-07-17 04:00] VITALS: BP 127/60
[2019-07-17] MEDS: SLF 3 ML SYR IV SCH ×3 (05:00→20:15)
[2019-07-17 06:24] LABS: CALCIUM LEVEL 9.1 MG/DL (8.8-10.2); CREATININE FOR GFR 5.7 MG/DL (0.55-1.30); GLOMERULAR FILTRATION RATE 7.6 (>32); POTASSIUM SERUM 4.3 MEQ/L (3.5-5.1)
[2019-07-17 08:00] VITALS: BP 138/63
[2019-07-17] MEDS: SUCROFERRIC OXYHYDROXIDE 500MG CHEW TAB (VELPHORO) PO SCH ×3 (08:00→17:12)
[2019-07-17] MEDS: GABAPENTIN 100 MG CAP PO SCH ×2 (08:20→20:14)
[2019-07-17] MEDS: CALCITRIOL 0.25 MCG CAP (S0169) PO SCH ×2 (08:20→20:14)
[2019-07-17] MEDS: LevoFLOXacin 250 MG TABLET PO SCH (08:20)
[2019-07-17] MEDS: ASPIRIN 81 MG ENTERIC TAB PO SCH (08:20)
[2019-07-17] MEDS: VITAMIN D 1,000 INTERNATIONAL UNITS TABLET PO SCH (08:20)
[2019-07-17] MEDS: DULoxetine 30 MG CAP (CYMBALTA) PO SCH (08:21)
[2019-07-17] MEDS: CLOPIDOGREL 75 MG TAB PO SCH (08:21)
[2019-07-17] MEDS: FAMOTIDINE 20 MG TAB PO SCH (08:21)
[2019-07-17] MEDS: ATORVASTATIN 20 MG TAB PO SCH (08:22)
[2019-07-17] MEDS: HumaLOG INSULIN (NovoLOG) PER UNIT SC SCH ×3 (08:22→17:12)
[2019-07-17 12:00] VITALS: BP 110/55
--- NOTE | 2019-07-17 13:36 | IPNPDOC ---
Date Seen The patient was seen on 07/17/19. Progress Note NEPHROLOGY SERVICE PROGRESS NOTE: SUBJECTIVE: Shanda was seen today and examined at the bedside. She continues to have N/V and disorientation so the primary team has stopped her levaquin. She received 2 doses. The patient reports she is still getting intermittent nausea and although she can eat she cannot eat much. She asks whether she can go home soon. OBJECTIVE PHYSICAL EXAMINATION: VITAL SIGNS: Please see below. GENERAL: laying in bed, appears stated age, calm, cooperative, in no acute distress HEENT: EOMI, PERRLA, normocephalic/atraumatic, neck is supple with no lymphadenopathy or thyromegaly CARDIOVASCULAR: JVD is normal, regular rate and rhythm, no murmurs/rubs/gallops RESPIRATORY: Clear to auscultation bilaterally with no adventitious breath sounds appreciated ABDOMINAL: tender to palpation in the LUQ and LLQ as well as the RLQ; No guarding or rebound tenderness; +BS and no masses/organomegaly appreciated. EXTREMITIES: no clubbing/cyanosis/edema NEUROLOGICAL: CN 2-12 intact with no obvious focal deficits PSYCHOLOGICAL: AAOx3, normal mood/affect LABORATORY DATA, IMAGING STUDIES, MICROBIOLOGY: Please see below. ASSESSMENT AND PLAN: Shanda is an 79 YO F with history of ESRD presented with AMS at dialysis found to have UTI. Nephrology service is consulted to manage her HD. PROBLEMS: 1. ESRD on HD: Patient will be dialyzed tomorrow. 2. UTI: -Patient only received 2 days of Levaquin but this was stopped due to her nausea/vomiting and disorientation. She will need at least 3 days of treatment, but this can be done outpatient if the primary team wishes to discharge her home. 3. AMS: most likely 2/2 UTI -Appears to have resolved on today's exam 4. HTN: BPs are acceptable. -Continue Amlodipine, Coreg, Clonidine DISPOSITION: Pending clinical improvement. She is fully optimized from the nephrology standpoint and can be discharged at this point in time. If she is discharged, she is to continue with her usual dialysis regimen in the outpatient setting. VS, I&O, 24H, Fishbone Vital Signs/I&O Vital Signs Date Time Temp Pulse Resp B/P (MAP) Pulse Ox O2 Delivery O2 Flow Rate FiO2 10/14/19 12:00 98.4 59 18 110/55 (73) 98 07/12/19 18:45 Room Air I&O- Last 24 Hours up to 6 AM 07/17/19 06:00 Intake Total 840 ml Output Total 100 ml Balance 740 ml Laboratory Data 24H LABS Laboratory Tests 2 07/16/19 17:32: Bedside Glucose (Misc Panel) 128H 07/17/19 05:47: Anion Gap 8, Glomerular Filtration Rate 7.6L, Blood Urea Nitrogen 49#H, Creatinine 5.70H, Sodium Level 132#L, Potassium Level 4.3, Chloride Level 97L, Carbon Dioxide Level 27, Calcium Level 9.1 07/17/19 11:34: Bedside Glucose (Misc Panel) 108 CBC/BMP Laboratory Tests 07/17/19 05:47 Calcium Level 9.1 Microbiology Microbiology 07/13/19 Urine Culture - Final, Complete Raoultella Planticola GME ATTESTATION GME ATTESTATION My faculty preceptor for this patient encounter was physically present during the encounter and was fully available. All aspects of the patient interview, examination, medical decision making process, and medical care plan development were reviewed and approved by the faculty preceptor. The faculty preceptor is aware and concurs with the plan as stated in the body of this note and will attest to such by his/her cosignature. JESUS FAUST MD Jul 17, 2019 13:36
[2019-07-17] MEDS: amLODIPine 10 MG TAB PO SCH (14:00)
[2019-07-17] MEDS: CARVedilol 6.25 MG TAB PO SCH (14:00)
[2019-07-17] MEDS: cloNIDine 0.1 MG TAB PO SCH ×2 (14:00→20:14)
[2019-07-17 16:00] VITALS: BP 136/60
--- NOTE | 2019-07-17 19:28 | IPNPDOC ---
Text Note Date of Service The patient was seen on 07/17/19. NOTE SUBJECTIVE: She had an episode of poor balance, dizziness and confusion today with physical therapy. The patient describes it as a panic episode. The patient's confusion appears to have resolved with 2 additional visits by this law writer. OBJECTIVE: Please see vital signs below Physical exam: HENT:Oral mucosa is moist, no scleral injection, neck is otherwise supple with no lymphadenopathy. Cardiovascular: Regular rate and rhythm, no appreciable murmur. Respiratory: Clear to auscultation, no rhonchi, rales, wheezes or cough. Abdomen: Soft, nondistended, mild epigastric tenderness but no guarding or rebound, mild central obesity relative to her overall body habitus Extremities: No peripheral edema, pedal pulses are readily palpable, dialysis fistula site is to her right upper extremity Neuro: No focal neuromotor or sensory deficit, she has been ambulatory with a walker, complains of neuropathy with burning sensation to her legs. She does not show any other signs such as slurred speech, tremors, or nystagmus. She does not have facial droop. ASSESSMENT/PLAN: 1. Hallucinations. The etiology is unclear and they have not recurred. 2. Chronic kidney disease stage V. This is hemodialysis requiring. She continues with her dialysis schedule, which is usually Wednesday, Wednesday and Wednesday. She last had dialysis on Wednesday after skipping Wednesday. She is expectant of dialysis this afternoon with anticipated discharge to home tomorrow. 3. Abdominal discomfort. Patient had had nausea and discomfort minimally responsive to Zofran. She has not had any vomiting. This has resolved and she is tolerant of small-volume diet. 4. Urinary tract infection. The patient apparently had a urinary tract infection. Urine culture is positive for Raoultella planticola. She had been placed on renally dosed Levaquin per sensitivities. Levaquin is shown to cause neuro disturbance and dizziness in the elderly. We will stop the medication. Disposition: Patient will likely be discharged to home to her longterm facility. She already has support services. We are anticipating she may need at- home physical therapy. VS,Fishbone, I+O VS, Fishbone, I+O Laboratory Tests 07/17/19 05:47 Calcium Level 9.1 Vital Signs Date Time Temp Pulse Resp B/P (MAP) Pulse Ox O2 Delivery O2 Flow Rate FiO2 07/17/19 16:00 98.5 52 16 136/60 (85) 96 07/12/19 18:45 Room Air I&O- Last 24 Hours up to 6 AM 07/17/19 05:59 Intake Total 840 ml Output Total 100 ml Balance 740 ml NADINE RAMOS MD Jul 17, 2019 19:28
[2019-07-17 20:00] VITALS: BP 164/74
[2019-07-17] MEDS: LEVEMIR (INSULIN DETEMIR) 1 UNITS/0.01ML SC SCH (20:13)
[2019-07-17 23:59] VITALS: BP 135/62
[2019-07-18 04:00] VITALS: BP 183/74
[2019-07-18 04:30] VITALS: BP 132/64
[2019-07-18] MEDS: GABAPENTIN 100 MG CAP PO SCH ×2 (05:34→20:27)
[2019-07-18] MEDS: SLF 3 ML SYR IV SCH ×3 (05:35→22:31)
[2019-07-18] MEDS: ASPIRIN 81 MG ENTERIC TAB PO SCH (05:35)
[2019-07-18 08:00] VITALS: BP 137/61
[2019-07-18] MEDS: SUCROFERRIC OXYHYDROXIDE 500MG CHEW TAB (VELPHORO) PO SCH ×3 (09:00→18:00)
[2019-07-18] MEDS: HumaLOG INSULIN (NovoLOG) PER UNIT SC SCH ×3 (09:00→17:58)
[2019-07-18 09:02] LABS: HEMATOCRIT 34.5 % (36.0-47.0); MEAN CORPUSCULAR HEMOGLOBIN 31.9 pg (27.0-33.0); MEAN CORPUSCULAR HGB CONC 31.9 g/dl (32.0-36.5); PLATELET COUNT, AUTOMATED 253 10^3/uL (150-450); RED BLOOD COUNT 3.45 10^6/uL (4.00-5.40); WHITE BLOOD COUNT 8.4 10^3/uL (4.0-10.0)
[2019-07-18 09:29] LABS: CALCIUM LEVEL 9.6 MG/DL (8.8-10.2); CREATININE FOR GFR 7.14 MG/DL (0.55-1.30); GLOMERULAR FILTRATION RATE 5.9 (>32); MAGNESIUM LEVEL 2.1 MG/DL (1.8-2.4); PHOSPHORUS LEVEL 5.6 MG/DL (2.5-4.9); POTASSIUM SERUM 4.7 MEQ/L (3.5-5.1)
[2019-07-18] MEDS ORDERED: CLONI1TA PO (10:51)
[2019-07-18] MEDS ORDERED: HEPARIN 1,000 UNITS/ML 10ML VIAL (FOR RADIOLOGY& DIALYSIS ONLY) IV ONE (11:00)
[2019-07-18] MEDS ORDERED: LIDOCAINE 1% SDV 5 ML VIAL SQ ONE (11:00)
--- NOTE | 2019-07-18 11:07 | DS.PDOC ---
Discharge Summary General Date of Admission Jul 17, 2019 at 10:15 Date of Discharge July 18, 2019 Specialist/Consultants Involve: MARCELA JAFFE MD @ Discharge Summary PROCEDURES PERFORMED DURING STAY: [None]. ADMITTING DIAGNOSES: 1. . DISCHARGE DIAGNOSES: 1. . COMPLICATIONS/CHIEF COMPLAINT: Altered Mental Status. HISTORY OF PRESENT ILLNESS: . HOSPITAL COURSE: . DISCHARGE MEDICATIONS: Please see below. ALLERGIES: Please see below. PHYSICAL EXAMINATION ON DISCHARGE: VITAL SIGNS: Please see below. GENERAL: HEENT: NECK: CARDIOVASCULAR EXAMINATION: RESPIRATORY EXAMINATION: ABDOMINAL EXAMINATION: EXTREMITIES: SKIN: NEUROLOGICAL EXAMINATION: PSYCHIATRIC EXAMINATION: LABORATORY DATA: Please see below. IMAGING: PROGNOSIS: ACTIVITY: [As tolerated]. DIET: DISCHARGE PLAN: DISPOSITION: . DISCHARGE INSTRUCTIONS: 1. . ITEMS TO FOLLOWUP ON ON OUTPATIENT: 1. . DISCHARGE CONDITION: [Stable]. TIME SPENT ON DISCHARGE: Greater than minutes. Vital Signs/I&Os Vital Signs Date Time Temp Pulse Resp B/P (MAP) Pulse Ox O2 Delivery O2 Flow Rate FiO2 07/18/19 08:00 97.2 60 18 137/61 (86) 97 07/12/19 18:45 Room Air I&O- Last 24 Hours up to 6 AM 07/18/19 06:00 Intake Total 720 ml Output Total 375 ml Balance 345 ml Laboratory Data Labs 24H Laboratory Tests 2 07/17/19 11:34: Bedside Glucose (Misc Panel) 108 07/17/19 12:05: Bedside Glucose (Misc Panel) 117H 07/17/19 17:03: Bedside Glucose (Misc Panel) 194H 07/17/19 20:04: Bedside Glucose (Misc Panel) 251H 07/18/19 06:51: Bedside Glucose (Misc Panel) 135H 07/18/19 08:35: Nucleated Red Blood Cells % (auto) 0.0, Anion Gap 10, Glomerular Filtration Rate 5.9L, Blood Urea Nitrogen 63H, Creatinine 7.14H, Sodium Level 135L, Potassium Level 4.7, Chloride Level 100, Carbon Dioxide Level 25, Calcium Level 9.6, Phosphorus Level 5.6H, Magnesium Level 2.1 CBC/BMP Laboratory Tests 07/18/19 08:35 Red Blood Count 3.45 L, Mean Corpuscular Volume 100.0 H, Mean Corpuscular Hemoglobin 31.9, Mean Corpuscular Hemoglobin Concent 31.9 L, Red Cell Distribution Width 14.2, Calcium Level 9.6 FSBS Laboratory Tests Test 07/17/19 11:34 07/17/19 12:05 07/17/19 17:03 07/17/19 20:04 Range/Units Bedside Glucose (Misc Panel) 108 117 194 251 83-110 MG/DL Test 07/18/19 06:51 Range/Units Bedside Glucose (Misc Panel) 135 83-110 MG/DL Microbiology Microbiology 07/13/19 Urine Culture - Final, Complete Raoultella Planticola Discharge Medications Scheduled Amlodipine Besylate (Amlodipine Besylate) 10 Mg Tablet, 10 MG PO DAILY, (Reported) Aspirin (Aspirin EC) 81 Mg Tab, 81 MG PO DAILY, (Reported) Atorvastatin Calcium (Atorvastatin Calcium) 40 Mg Tablet, 40 MG PO DAILY, (Reported) Calcitriol (Calcitriol) 0.25 Mcg Capsule, 0.25 MCG PO BID, (Reported) Carvedilol (Coreg) 6.25 Mg Tab, 6.25 MG PO DAILY, (Reported) Clonidine Hcl (Clonidine HCl) 0.1 Mg Tablet, 0.1 MG PO BID Clopidogrel Bisulfate (Plavix) 75 Mg Tab, 75 MG PO DAILY, (Reported) Duloxetine Hcl (Cymbalta) 30 Mg Cap, 30 MG PO DAILY, (Reported) Famotidine (Famotidine) 20 Mg Tablet, 20 MG PO BID, (Reported) Furosemide (Furosemide) 80 Mg Tablet, 80 MG PO BID, (Reported) Gabapentin (Gabapentin) 100 Mg Capsule, 100 MG PO BID, (Reported) Insulin Glargine (Lantus) 1 Units/0.01 Ml Susp, 20 UNITS SC QHS, (Reported) Insulin Lispro (Humalog Kwikpen U-100) 100 Unit/Ml Inj, 6 UNITS SC AC, (Reported) Lidocaine/Prilocaine (Lidocaine-Prilocaine Cream) 2.5%/2.5% Cream..g., 1 DOSE TOP 3XW, (Reported) 1 TO 2 HOURS BEFORE DIALYSIS ON WEDNESDAY, WEDNESDAY AND WEDNESDAY Sucroferric Oxyhydroxide (Velphoro) 500 Mg Tab.chew, 1,000 MG PO WM, (Reported) Vitamin D (Vitamin D3) 1,000 Unit Tablet, 2,000 UNITS PO DAILY, (Reported) Scheduled PRN Acetaminophen (Tylenol Extra Strength) 500 Mg Tablet, 1,000 MG PO TID PRN for PAIN / FEVER, (Reported) Albuterol Sulfate (Proair Hfa) 8.5 Gm Hfa.aer.ad, 2 PUFF INH Q4H PRN for SOB/WHEEZING, (Reported) Clonazepam (Clonazepam) 0.25 Mg Tab.rapdis, 0.25 MG PO BID PRN for ANXIETY, (Reported) Nystatin (Nystatin Powder) 15 Gm Powder, 1 DOSE TOP TID PRN for REDNESS/IRRITATION, (Reported) APPLY TO ABDOMINAL FOLDS Ondansetron HCl (Zofran) 4 Mg Tablet, 4 MG PO Q6H PRN for NAUSEA OR VOMITING, (Reported) Polyethylene Glycol 3350 (Miralax) 119 Gm Powder, 17 GM PO DAILY PRN for CONSTIPATION, (Reported) Salmeterol/Fluticasone (Advair 250-50 Diskus) 1 Each Blst.w.dev, 1 PUFF INH BID PRN for SHORTNESS OF BREATH, (Reported) PATIENT STATES SHE ONLY TAKES NEEDED Tramadol HCl (Tramadol HCl) 50 Mg Tablet, 50 MG PO BID PRN for PAIN, (Reported) Allergies Coded Allergies: ceftriaxone (Verified Allergy, Severe, SOB, hives,, 01/25/19) Penicillins (Verified Allergy, Intermediate, unknown , 01/25/19) codeine (Verified Allergy, Intermediate, hives/ rash, 01/25/19) nitroglycerin (Verified Allergy, Intermediate, unknown , 01/25/19) Sulfa (Sulfonamide Antibiotics) (Verified Adverse Reaction, Intermediate, dizziness, 01/25/19) NADINE RAMOS MD Jul 18, 2019 11:07
[2019-07-18 12:00] VITALS: BP 153/68
[2019-07-18] MEDS: VITAMIN D 1,000 INTERNATIONAL UNITS TABLET PO SCH (14:06)
[2019-07-18] MEDS: amLODIPine 10 MG TAB PO SCH (14:07)
[2019-07-18] MEDS: cloNIDine 0.1 MG TAB PO SCH ×2 (14:07→20:28)
[2019-07-18] MEDS: CARVedilol 6.25 MG TAB PO SCH (14:08)
[2019-07-18] MEDS: DULoxetine 30 MG CAP (CYMBALTA) PO SCH (14:08)
[2019-07-18] MEDS: CLOPIDOGREL 75 MG TAB PO SCH (14:09)
[2019-07-18] MEDS: CALCITRIOL 0.25 MCG CAP (S0169) PO SCH ×2 (14:09→20:27)
[2019-07-18] MEDS: FAMOTIDINE 20 MG TAB PO SCH (14:09)
[2019-07-18] MEDS: ATORVASTATIN 20 MG TAB PO SCH (14:10)
--- NOTE | 2019-07-18 14:11 | IPNPDOC ---
Date Seen The patient was seen on 07/18/19. Progress Note NEPHROLOGY SERVICE PROGRESS NOTE: SUBJECTIVE: Shanda was seen today and examined at the bedside in dialysis. She has no complaints. No evidence of hallucinations or disorientation that she had before. She will do HD today and will subsequently be discharged home. OBJECTIVE PHYSICAL EXAMINATION: VITAL SIGNS: Please see below. GENERAL: laying in bed, appears stated age, calm, cooperative, in no acute distress HEENT: EOMI, PERRLA, normocephalic/atraumatic, neck is supple with no lymphade nopathy or thyromegaly CARDIOVASCULAR: JVD is normal, regular rate and rhythm, no murmurs/rubs/gallops RESPIRATORY: Clear to auscultation bilaterally with no adventitious breath sounds appreciated ABDOMINAL: nontender to palpation; No guarding or rebound tenderness; +BS and no masses/organomegaly appreciated. EXTREMITIES: no clubbing/cyanosis/edema NEUROLOGICAL: CN 2-12 intact with no obvious focal deficits PSYCHOLOGICAL: AAOx3, normal mood/affect LABORATORY DATA, IMAGING STUDIES, MICROBIOLOGY: Please see below. ASSESSMENT AND PLAN: Shanda is an 79 YO F with history of ESRD presented with A MS at dialysis found to have UTI. Nephrology service is consulted to manage her HD. PROBLEMS: 1. ESRD on HD: Patient will be dialyzed today. 2. UTI: -Patient only received 2 days of Levaquin but this was stopped due to her nausea/vomiting and disorientation. Recommend sending home on at least 2 more days of Levaquin 3. AMS: most likely 2/2 UTI -Appears to have resolved on today's exam 4. HTN: BPs are acceptable. -Continue Amlodipine, Coreg, Clonidine DISPOSITION: Pending clinical improvement. She is fully optimized from the nephrology standpoint and can be discharged at this point in time. If she is discharged, she is to continue with her usual dialysis regimen in the outpatient setting. VS, I&O, 24H, Fishbone Vital Signs/I&O Vital Signs Date Time Temp Pulse Resp B/P (MAP) Pulse Ox O2 Delivery O2 Flow Rate FiO2 07/18/19 08:00 97.2 60 18 137/61 (86) 97 07/12/19 18:45 Room Air I&O- Last 24 Hours up to 6 AM 07/18/19 06:00 Intake Total 720 ml Output Total 375 ml Balance 345 ml Laboratory Data 24H LABS Laboratory Tests 2 07/17/19 17:03: Bedside Glucose (Misc Panel) 194H 07/17/19 20:04: Bedside Glucose (Misc Panel) 251H 07/18/19 06:51: Bedside Glucose (Misc Panel) 135H 07/18/19 08:35: Nucleated Red Blood Cells % (auto) 0.0, Anion Gap 10, Glomerular Filtration Rate 5.9L, Blood Urea Nitrogen 63H, Creatinine 7.14H, Sodium Level 135L, Potassium Level 4.7, Chloride Level 100, Carbon Dioxide Level 25, Calcium Level 9.6, Phosphorus Level 5.6H, Magnesium Level 2.1 07/18/19 13:28: Bedside Glucose (Misc Panel) 107 CBC/BMP Laboratory Tests 07/18/19 08:35 Red Blood Count 3.45 L, Mean Corpuscular Volume 100.0 H, Mean Corpuscular Hemoglobin 31.9, Mean Corpuscular Hemoglobin Concent 31.9 L, Red Cell Distribu tion Width 14.2, Calcium Level 9.6 Microbiology Microbiology 07/13/19 Urine Culture - Final, Complete Raoultella Planticola GME ATTESTATION GME ATTESTATION My faculty preceptor for this patient encounter was physically present during the encounter and was fully available. All aspects of the patient interview, examination, medical decision making process, and medical care plan development were reviewed and approved by the faculty preceptor. The faculty preceptor is aware and concurs with the plan as stated in the body of this note and will attest to such by his/her cosignature. JESUS FAUST MD Jul 18, 2019 14:11
[2019-07-18 16:00] VITALS: BP 146/70
[2019-07-18 20:00] VITALS: BP 157/70
[2019-07-18] MEDS: LEVEMIR (INSULIN DETEMIR) 1 UNITS/0.01ML SC SCH (20:28)
[2019-07-19 05:12] VITALS: BP 122/60
[2019-07-19] MEDS: SLF 3 ML SYR IV SCH (05:16)
[2019-07-19] MEDS: SUCROFERRIC OXYHYDROXIDE 500MG CHEW TAB (VELPHORO) PO SCH (08:11)
[2019-07-19] MEDS: ATORVASTATIN 20 MG TAB PO SCH (08:11)
[2019-07-19] MEDS: ASPIRIN 81 MG ENTERIC TAB PO SCH (08:11)
[2019-07-19] MEDS: CLOPIDOGREL 75 MG TAB PO SCH (08:11)
[2019-07-19] MEDS: VITAMIN D 1,000 INTERNATIONAL UNITS TABLET PO SCH (08:11)
[2019-07-19] MEDS: HumaLOG INSULIN (NovoLOG) PER UNIT SC SCH (08:11)
[2019-07-19 08:12] VITALS: BP 122/60
[2019-07-19] MEDS: CALCITRIOL 0.25 MCG CAP (S0169) PO SCH (08:12)
[2019-07-19] MEDS: amLODIPine 10 MG TAB PO SCH (08:12)
[2019-07-19] MEDS: FAMOTIDINE 20 MG TAB PO SCH (08:12)
[2019-07-19] MEDS: cloNIDine 0.1 MG TAB PO SCH (08:12)
[2019-07-19] MEDS: CARVedilol 6.25 MG TAB PO SCH (08:12)
[2019-07-19] MEDS: DULoxetine 30 MG CAP (CYMBALTA) PO SCH (08:13)
[2019-07-19] MEDS: GABAPENTIN 100 MG CAP PO SCH (08:13)
--- NOTE | 2019-07-19 11:21 | IPNPDOC ---
Date Seen The patient was seen on 07/19/19. Progress Note NEPHROLOGY SERVICE PROGRESS NOTE: SUBJECTIVE: Shanda was seen today and examined at the bedside. She has no complaints. No issues with breathing or urination. Her altered mental status appears to have resolved. She will be discharged today and sent to outpatient dialysis, then home. OBJECTIVE PHYSICAL EXAMINATION: VITAL SIGNS: Please see below. GENERAL: laying in bed sleeping, appears stated age, calm, cooperative, in no acute distress HEENT: EOMI, PERRLA, normocephalic/atraumatic, neck is supple with no lymphadenopathy or thyromegaly CARDIOVASCULAR: JVD is normal, regular rate and rhythm, no murmurs/rubs/gallops RESPIRATORY: Clear to auscultation bilaterally with no adventitious breath sounds appreciated ABDOMINAL: nontender to palpation; No guarding or rebound tenderness; +BS and no masses/organomegaly appreciated. EXTREMITIES: no clubbing/cyanosis/edema NEUROLOGICAL: CN 2-12 intact with no obvious focal deficits PSYCHOLOGICAL: AAOx3, normal mood/affect LABORATORY DATA, IMAGING STUDIES, MICROBIOLOGY: Please see below. ASSESSMENT AND PLAN: Shanda is an 79 YO F with history of ESRD presented with AMS at dialysis found to have UTI. Nephrology service is consulted to manage her HD. PROBLEMS: 1. ESRD on HD: Patient was dialyzed yesterday and 2000cc removed. She will be dialyzed again today outpatient after she is discharged. 2. UTI: -Patient grew Raoultella Planticola in urine. S/p 2 days of Levaquin. She is asymptomatic at this point. 3. AMS: most likely 2/2 UTI -Appears to have resolved 4. HTN: BPs are acceptable. -Continue Amlodipine, Coreg, Clonidine DISPOSITION: Patient is fully optimized from the nephrology standpoint and is safe for discharge. She is to continue with her normal dialysis days (M, W, F) including dialysis outpatient today after discharge. VS, I&O, 24H, Fishbone Vital Signs/I&O Vital Signs Date Time Temp Pulse Resp B/P (MAP) Pulse Ox O2 Delivery O2 Flow Rate FiO2 07/19/19 08:12 122/60 07/19/19 08:12 63 07/19/19 05:12 97.6 18 95 I&O- Last 24 Hours up to 6 AM 07/19/19 06:00 Intake Total 840 ml Output Total 2000 ml Balance -1160 ml Laboratory Data 24H LABS Laboratory Tests 2 07/18/19 13:28: Bedside Glucose (Misc Panel) 107 07/18/19 17:01: Bedside Glucose (Misc Panel) 225H 07/18/19 20:26: Bedside Glucose (Misc Panel) 164H 07/19/19 06:40: Bedside Glucose (Misc Panel) 142H Microbiology Microbiology 07/13/19 Urine Culture - Final, Complete Raoultella Planticola GME ATTESTATION GME ATTESTATION My faculty preceptor for this patient encounter was physically present during the encounter and was fully available. All aspects of the patient interview, examination, medical decision making process, and medical care plan development were reviewed and approved by the faculty preceptor. The faculty preceptor is aware and concurs with the plan as stated in the body of this note and will attest to such by his/her cosignature. JESUS FAUST MD Jul 19, 2019 11:21
== END 2019-07-19 11:30 | disposition home health service (06) | DRG 689 ==
LOC: M ED 14:17 → M ED INP 14:18 → M PCU 07-13 02:20 → EEVIPCON 07-17 10:15 → OBSVTOIN 07-17 10:15 → M MS4PR 07-18 23:31
PROVIDERS: ADMIT Internal Medicine; ATTEND Internal Medicine
DX: N39.0 Urinary tract infection, site not specified (principal); N18.6 End stage renal disease; G93.41 Metabolic encephalopathy; N25.81 Secondary hyperparathyroidism of renal origin; I13.2 Hypertensive heart and chronic kidney disease with heart failure and with stage 5 chronic kidney disease, or end stage renal disease; Z79.899 Other long term (current) drug therapy; Z79.82 Long term (current) use of aspirin; Z88.0 Allergy status to penicillin; Z88.5 Allergy status to narcotic agent; Z88.2 Allergy status to sulfonamides; Z88.8 Allergy status to other drugs, medicaments and biological substances; E11.9 Type 2 diabetes mellitus without complications; I25.10 Atherosclerotic heart disease of native coronary artery without angina pectoris; I25.2 Old myocardial infarction; Z86.73 Personal history of transient ischemic attack (TIA), and cerebral infarction without residual deficits; Z85.828 Personal history of other malignant neoplasm of skin; I50.9 Heart failure, unspecified

== ENCOUNTER 2019-07-31 16:24 | Inpatient (IN) | payer MEDICARE, MEDICAID ==
[~2019-07-31] VITALS: Ht 167.6 cm; Wt 74.0 kg
[~2019-07-31 16:24] MED LIST changes: +ACET-897 PO; +CLON0.25 PO; +CLONI1TA PO; +VELP5CHW PO
--- NOTE | 2019-07-31 17:28 | REPVR ---
PROCEDURE INFORMATION: Exam: CT Head Without Contrast Exam date and time: 07/31/2019 5:03 PM Clinical history: 79 years old, female; Altered mental status/memory loss TECHNIQUE: Imaging protocol: Computed tomography of the head without contrast. Radiation optimization: All CT scans at this facility use at least one of these dose optimization techniques: automated exposure control; mA and/or kV adjustment per patient size (includes targeted exams where dose is matched to clinical indication); or iterative reconstruction. COMPARISON: CT Head without contrast 07/12/2019 2:34 PM FINDINGS: Brain: There is mild to moderate age-related parenchymal volume loss. White matter changes are demonstrated in the subcortical, centrum semiovale and periventricular white matter consistent with age related small vessel white matter angiopathic gliosis. Ventricles: The degree of ventricular dilatation is normal for age and/or degree of atrophy present. Bones/joints: Unremarkable. No acute fracture. Sinuses: Visualized sinuses are unremarkable. No fluid levels. Mastoid air cells: Visualized mastoid air cells are well aerated. Soft tissues: Unremarkable. IMPRESSION: 1. There is mild to moderate age-related parenchymal volume loss. White matter changes are demonstrated in the subcortical, centrum semiovale and periventricular white matter consistent with age related small vessel white matter angiopathic gliosis. 2. The degree of ventricular dilatation is normal for age and/or degree of atrophy present. Electronically signed by: Waldemar Wells On 07/31/2019 17:27:53 PM
--- NOTE | 2019-07-31 17:43 | REP ---
Clinical: Altered mental status . Comparison: 04/12/2019 . Findings: The mediastinum and cardiac silhouette are stable and again demonstrate prior sternotomy with CABG. The lung waldrop demonstrate diffuse chronic interstitial changes without acute consolidation, effusion, or pneumothorax. Skeletal structures are intact. Impression: Chronic stable changes. No acute cardiopulmonary process appreciated. Electronically Signed by Alvaro Gann MD 07/31/2019 05:35 P
[2019-07-31 18:01] LABS: BASO % 0.5 % (0.0-1.0); EOS # 0.2 10^3/uL (0.0-0.5); EOS % 2.9 % (0.0-3.0); HEMATOCRIT 36.1 % (36.0-47.0); HEMOGLOBIN 11.5 g/dl (12.0-15.5); LYMPH # 2.1 10^3/uL (1.5-5.0); LYMPH % 31.9 % (24.0-44.0); MEAN CORPUSCULAR HEMOGLOBIN 32.1 pg (27.0-33.0); MEAN CORPUSCULAR HGB CONC 31.9 g/dl (32.0-36.5); MEAN CORPUSCULAR VOLUME 100.8 fl (80.0-96.0); MONO # 0.8 10^3/uL (0.0-0.8); MONO % 12.1 % (0.0-5.0); NEUTROPHILS # 3.4 10^3/uL (1.5-8.5); NEUTROPHILS % 52.3 % (36.0-66.0); PLATELET COUNT, AUTOMATED 271 10^3/uL (150-450); RED BLOOD COUNT 3.58 10^6/uL (4.00-5.40); WHITE BLOOD COUNT 6.5 10^3/uL (4.0-10.0)
[2019-07-31] MEDS ORDERED: LIDOCAINE 2% 5ML JELLY UROJET TOP ONE (18:15)
[2019-07-31 19:03] LABS: ALT/SGPT 18 U/L (12-78); BILIRUBIN,DIRECT < 0.1 MG/DL (0.0-0.2); BILIRUBIN,TOTAL 0.3 MG/DL (0.2-1.0); BLOOD UREA NITROGEN 16 MG/DL (7-18); CALCIUM LEVEL 9.1 MG/DL (8.8-10.2); CARBON DIOXIDE LEVEL 27 MEQ/L (21-32); CHLORIDE LEVEL 104 MEQ/L (98-107); CK-MB VALUE MASS 2.1 NG/ML (<3.6); CPK CREATINE PHOSPHOKINASE 65 U/L (26-192); CREATININE FOR GFR 3.54 MG/DL (0.55-1.30); GLOMERULAR FILTRATION RATE 13.2 (>32); GLUCOSE, FASTING 153 MG/DL (70-100); MB/CK RELATIVE INDEX 3.23 (< OR =4); POTASSIUM SERUM 3.8 MEQ/L (3.5-5.1); SODIUM LEVEL 139 MEQ/L (136-145); TOTAL PROTEIN 6.9 GM/DL (6.4-8.2); TROPONIN I < 0.02 NG/ML (< 0.10)
[2019-07-31] MEDS: LEVEMIR (INSULIN DETEMIR) 1 UNITS/0.01ML SC SCH (21:00)
[2019-07-31] MEDS: HumaLOG INSULIN (NovoLOG) PER UNIT SC SCH (21:00)
[2019-07-31] MEDS ORDERED: CIPROFLOXACIN 400 MG in IV 1 EA IV ONE (22:30)
[2019-07-31] MEDS ORDERED: GLUCOSE 4 GM CHEW TABLET PO PRN (23:00)
[2019-07-31] MEDS ORDERED: ACETAMINOPHEN TAB 650MG DOSE (2X325MG) PO PRN (23:00)
[2019-07-31] MEDS ORDERED: GLUCAGON FOR INJ 1 MG VIAL (J1610) SC PRN (23:00)
[2019-07-31] MEDS ORDERED: DEXTROSE 50% 50 ML SYRINGE IV PRN (23:00)
[2019-07-31] MEDS ORDERED: CLON-412 PO (23:11)
[2019-07-31] MEDS ORDERED: ADVAIR HFA 115/21MCG INHALER INH PRN (23:15)
[2019-07-31] MEDS ORDERED: traMADol 50 MG TAB PO PRN (23:15)
[2019-07-31] MEDS ORDERED: NYSTATIN 100,000 UNITS/GM TOPICAL PWD 15 GM TOP PRN (23:15)
[2019-07-31] MEDS ORDERED: MIRALAX *UNIT DOSE* 17GM PACKET PO PRN (23:15)
[2019-07-31] MEDS ORDERED: ONDANSETRON 4 MG TAB (S0181) PO PRN (23:15)
[2019-07-31] MEDS ORDERED: ALBUTEROL 90 MCG/ACT 8GM HFA INHALER INH PRN (23:15)
--- NOTE | 2019-07-31 23:37 | HPEPDOC ---
[facility] Medical History & Physical Date of Admission Jul 31, 2019 Date of Service: Jul 31, 2019 Primary Care Physician: MARCELA JAFFE MD @ Attending Physician: ANDREW GEORGE MD History and Physical CHIEF COMPLAINT:Sent from dialysis for Altered mental status HISTORY OF PRESENT ILLNESS: Patient is 79-year-old female with past medical history significant for end- stage renal disease on hemodialysis (MWF), diabetes mellitus, coronary artery disease status post [place], TIA, hypertension, basal cell carcinoma, and history of UTIs who was sent from her dialysis unit for evaluation of altered mental status. She states that she felt like the room was spinning, denied any visual o r auditory hallucination. She recalls dialysis, but not much beyond that except being sent over to the ED. She has been having back pain and dysuria for 2-3 days which she has been managing with cranberry juice. She denied any vaginal odor or vaginal discharge. She has had previous hospital visits /admissions for UTIs. In the ED she was started on ciprofloxacin for a UTI based on prior cultures. 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 ROS CONSTITUTIONAL: No fevers, denies chills, denies weight loss, denies lethargy HEENT: No rhinorrhea, no itchy eyes, no congesion, CARDIOVASCULAR: No murmurs no palpitations and arrhythmias RESPIRATORY: Not cough, No SOB, no issues to report GASTROINTESTINAL: No nausea, no vomiting, no difficulty swallowing, no pain with eating, no diarrhea HEMATOLOGICAL: No bleeding GENITOURINARY: Admits to 2-3 days of dysuria HEMATOLOGIC/LYMPHATIC: No swelling PE VITALS: See Below GENERAL APPEARANCE: Alert no acute distress., Pleasant, elderly female SKIN: Warm, well perfused. Fistula placed on right upper arm ENT: Palate intact, frias tympanic membrane no bulging, no erythema, Neck supple, no thyromegaly LUNGS: Clear to auscultation bilaterally. HEART: Audible murmur, S1 and S2 present, ABDOMEN: Soft. No masses. Bowel sounds are present. EXTREMITIES: Moves all extremities equally. No gross deformities. PULSES: 2+ upper and lower extremity . NEURO: Alert, oriented 2, answers questions appropriately, has recall, with exception of events following confusion at dialysis HOME MEDICATIONS: Please see below. IMAGING: CT of the head without contrast. IMPRESSION: 1. There is mild to moderate age-related parenchymal volume loss. White matter changes are demonstrated in the subcortical, centrum semiovale and periventricular white matter consistent with age related small vessel white matter angiopathic gliosis. 2. The degree of ventricular dilatation is normal for age and/or degree of atrophy present. Chest x-ray Chronic stable changes. No acute cardiopulmonary process appreciated. LABORATORY DATA: Please see below. MICROBIOLOGY: Please see below. ASSESSMENT & PLAN: This is an 79-year-old female with a past medical history of end-stage renal disease on hemodialysis (MWF), diabetes mellitus, TIA, chronic coronary artery disease, chronic hypertension, basal cell carcinoma, and history of UTIs, who will be admitted for evaluation of encephalopathy possibly 2/2 a UTI. 1. Metabolic encephalopathy secondary to UTI -UA was turbid in color, 2+ protein, 2+ leukocyte esterase, too numerous to count white cells, 11 white cells and 3+ bacteria -f/u Blood cultures. -Prior cultures for urine was sensitive to ciprofloxacin, will continue ciprofloxacin during stay -neurochecks 2. Bradycardia -possibly due to amlodpine -Trop and TSH wnl -telemetry -f/u Mag 3.End-stage renal disease on hemodialysis (MWF) -nephrology consult -Renal diet 4. Anxiety -Currently controlled with clonazepam, will hold due to patient's acute state of confusion 5.Chronic Hypertension -Continue home medications 6.Diabetes mellitus -detemir 20 units QHS with ISS -hypoglycemia protocol -f/u A1C and serum glucose -carbohydrate consistent / renal diet 7.Chronic CAD -resume ASA and statin 8. hx of TIA - resume ASA DVT prophylaxis: Teds and sequentials ordered DISPO pending clinical course Vital Signs Vital Signs Date Time Temp Pulse Resp B/P (MAP) Pulse Ox O2 Delivery O2 Flow Rate FiO2 07/31/19 17:02 96.1 51 15 156/66 (96) 98 Room Air Laboratory Data Labs 24H Laboratory Tests 2 07/31/19 17:48: Immature Granulocyte % (Auto) 0.3, Neutrophils (%) (Auto) 52.3, Lymphocytes (%) (Auto) 31.9, Monocytes (%) (Auto) 12.1H, Eosinophils (%) (Auto) 2.9, Basophils (%) (Auto) 0.5, Neutrophils # (Auto) 3.4, Lymphocytes # (Auto) 2.1, Monocytes # (Auto) 0.8, Eosinophils # (Auto) 0.2, Basophils # (Auto) 0.0, Nucleated Red Blood Cells % (auto) 0.0, Lactic Acid Level 1.5, Ammonia 26 07/31/19 18:15: Bedside Glucose (Misc Panel) 166H 07/31/19 18:20: Anion Gap 8, Glomerular Filtration Rate 13.2L, Calcium Level 9.1, Total Bilirubin 0.3, Direct Bilirubin < 0.1, Aspartate Amino Transf (AST/SGOT) 19, Alanine Aminotransferase (ALT/SGPT) 18, Alkaline Phosphatase 83, Total Creatine Kinase 65, Creatine Kinase MB 2.1, Creatine Kinase MB Relative Index 3.23, Troponin I < 0.02, Total Protein 6.9, Albumin 3.0L, Albumin/Globulin Ratio 0.77L, Thyroid Stimulating Hormone (TSH) 1.240 07/31/19 18:35: Urine Color YELLOW, Urine Appearance TURBIDH, Urine pH 6.0, Urine Specific [place] 1.013, Urine Protein 2+H, Urine Glucose (UA) NEGATIVE, Urine Ketones NEGATIVE, Urine Blood 1+H, Urine Nitrite NEGATIVE, Urine Bilirubin NEGATIVE, Urine Urobilinogen 0.2, Urine Leukocyte Esterase 2+H, Urine WBC (Auto) TNTCH, Urine RBC (Auto) 11H, Urine Hyaline Casts (Auto) 0, Urine Bacteria (Auto) 3+H, Urine Squamous Epithelial Cells 0, Urine Sperm (Auto) CBC/BMP Laboratory Tests 07/31/19 17:48 07/31/19 18:20 Microbiology Microbiology 07/31/19 Urine Culture, Received Pending 07/31/19 Blood Culture, Received Pending 07/31/19 Blood Culture, Received Pending Home Medications Scheduled Amlodipine Besylate (Amlodipine Besylate) 10 Mg Tablet, 10 MG PO DAILY Aspirin (Aspirin EC) 81 Mg Tab, 81 MG PO DAILY Atorvastatin Calcium (Atorvastatin Calcium) 40 Mg Tablet, 40 MG PO DAILY Calcitriol (Calcitriol) 0.25 Mcg Capsule, 0.25 MCG PO BID Carvedilol (Coreg) 6.25 Mg Tab, 6.25 MG PO DAILY Clonidine HCl (Clonidine HCl) 0.1 Mg Tablet, 0.1 MG PO BID Clopidogrel Bisulfate (Plavix) 75 Mg Tab, 75 MG PO DAILY Duloxetine Hcl (Cymbalta) 30 Mg Cap, 30 MG PO DAILY Famotidine (Famotidine) 20 Mg Tablet, 20 MG PO BID Furosemide (Furosemide) 80 Mg Tablet, 80 MG PO BID Gabapentin (Gabapentin) 100 Mg Capsule, 100 MG PO BID Insulin Glargine (Lantus) 1 Units/0.01 Ml Susp, 20 UNITS SC QHS Insulin Lispro (Humalog Kwikpen U-100) 100 Unit/Ml Inj, 6 UNITS SC AC Lidocaine/Prilocaine (Lidocaine-Prilocaine Cream) 2.5%/2.5% Cream..g., 1 DOSE TOP 3XW 1 TO 2 HOURS BEFORE DIALYSIS ON WEDNESDAY, WEDNESDAY AND WEDNESDAY Sucroferric Oxyhydroxide (Velphoro) 500 Mg Tab.chew, 500 MG PO WM Scheduled PRN Acetaminophen (Tylenol Extra Strength) 500 Mg Tablet, 1,000 MG PO TID PRN for PAIN / FEVER Albuterol Sulfate (Proair Hfa) 8.5 Gm Hfa.aer.ad, 2 PUFF INH Q4H PRN for SOB/WHEEZING Clonazepam (Clonazepam) 0.25 Mg Tab.rapdis, 0.25 MG PO BID PRN for ANXIETY Nystatin (Nystatin Powder) 15 Gm Powder, 1 DOSE TOP TID PRN for REDNESS/IRRITATION APPLY TO ABDOMINAL FOLDS Ondansetron HCl (Zofran) 4 Mg Tablet, 4 MG PO Q6H PRN for NAUSEA OR VOMITING Polyethylene Glycol 3350 (Miralax) 119 Gm Powder, 17 GM PO DAILY PRN for CONSTIPATION Salmeterol/Fluticasone (Advair 250-50 Diskus) 1 Each Blst.w.dev, 1 PUFF INH BID PRN for SHORTNESS OF BREATH PATIENT STATES SHE ONLY TAKES NEEDED Tramadol HCl (Tramadol HCl) 50 Mg Tablet, 50 MG PO BID PRN for PAIN Allergies Coded Allergies: ceftriaxone (Verified Allergy, Severe, SOB, hives,, 01/25/19) Penicillins (Verified Allergy, Intermediate, unknown , 01/25/19) codeine (Verified Allergy, Intermediate, hives/ rash, 01/25/19) nitroglycerin (Verified Allergy, Intermediate, unknown , 01/25/19) Sulfa (Sulfonamide Antibiotics) (Verified Adverse Reaction, Intermediate, dizziness, 01/25/19) GME ATTESTATION GME ATTESTATION My faculty preceptor for this patient encounter was physically present during the encounter and was fully available. All aspects of the patient interview, examination, medical decision making process, and medical care plan development were reviewed and approved by the faculty preceptor. The faculty preceptor is aware and concurs with the plan as stated in the body of this note and will attest to such by his/her cosignature. ATTENDING NOTE I examined the patient at 1105PM and discussed the case with and agree with the findings as documented above. LEILANI SARAVIA DO Jul 31, 2019 23:37 ANDREW GEORGE MD Aug 01, 2019 04:20
[2019-08-01 01:45] VITALS: BP 150/67
[2019-08-01] MEDS: FUROSEMIDE 80 MG TAB PO SCH ×3 (02:03→21:02)
[2019-08-01] MEDS: CALCITRIOL 0.25 MCG CAP (S0169) PO SCH ×3 (02:03→21:02)
[2019-08-01] MEDS: FAMOTIDINE 20 MG TAB PO SCH ×3 (02:03→21:02)
[2019-08-01] MEDS: GABAPENTIN 100 MG CAP PO SCH ×3 (02:03→21:02)
[2019-08-01] MEDS: cloNIDine 0.1 MG TAB PO SCH ×3 (02:03→21:02)
[2019-08-01 06:35] LABS: HEMOGLOBIN A1c 7.9 %
[2019-08-01 06:36] LABS: ALBUMIN 2.6 GM/DL (3.2-5.2); BILIRUBIN,TOTAL 0.5 MG/DL (0.2-1.0); CALCIUM LEVEL 8.2 MG/DL (8.8-10.2); CREATININE FOR GFR 4.48 MG/DL (0.55-1.30); POTASSIUM SERUM 3.9 MEQ/L (3.5-5.1); TOTAL PROTEIN 6.2 GM/DL (6.4-8.2)
[2019-08-01] MEDS ORDERED: HumaLOG INSULIN (NovoLOG) PER UNIT SC SCH (07:30)
[2019-08-01 08:00] VITALS: BP 116/85
[2019-08-01] MEDS: HumaLOG INSULIN (NovoLOG) PER UNIT SC SCH ×4 (08:13→21:00)
[2019-08-01] MEDS: SUCROFERRIC OXYHYDROXIDE 500MG CHEW TAB (VELPHORO) PO SCH ×3 (08:13→18:01)
[2019-08-01] MEDS: ASPIRIN 81 MG ENTERIC TAB PO SCH (08:13)
[2019-08-01] MEDS: amLODIPine 10 MG TAB PO SCH (08:15)
[2019-08-01] MEDS: CLOPIDOGREL 75 MG TAB PO SCH (08:16)
[2019-08-01] MEDS: ATORVASTATIN 20 MG TAB PO SCH (08:16)
[2019-08-01] MEDS: CARVedilol 6.25 MG TAB PO SCH (08:16)
[2019-08-01] MEDS: DULoxetine 30 MG CAP (CYMBALTA) PO SCH (08:16)
--- NOTE | 2019-08-01 10:49 | IPNPDOC ---
Date Seen The patient was seen on 08/01/19. Progress Note SUBJECTIVE: Patient is a 79 year old female with a past medical history of end- stage renal disease on hemodialysis (MWF), diabetes mellitus, TIA, coronary artery disease status post [place], hypertension, basal cell carcinoma, and history of UTIs, who will be admitted for evaluation of mental status change likely 2/2 UTI. Patient was seen and examined today, sitting comfortably on the edge of her bed taking her morning medications. She states she is currently feeling well. She states she has been having dysuria when she urinates. She states she typically does not produce much urine, but had one episode of large volume of urine recently. She states she is on chronic hemodialysis. She denies any urinary frequency or urgency. OBJECTIVE PHYSICAL EXAMINATION: VITAL SIGNS: Please see below. GENERAL: Alert, comfortable, in no acute distress HEENT: Normocephalic, atraumatic, PERRLA, EOMI, moist mucous membranes CARDIOVASCULAR: Regular rate and rhythm, normal S1 and S2. Systolic ejection mu rmur auscultated over the right upper sternal border RESPIRATORY: Clear to auscultation bilaterally with equal air entry bilaterally. No wheezing, rhonchi, or rales. ABDOMEN: Soft, nontender, nondistended, bowel sounds present EXTREMITIES: Bilateral edema in the lower extremities. Pulses 2+/4 in bilateral upper and lower extremities SKIN: [place], warm, dry NEUROLOGIC: Alert and oriented 3 to person, place, and time. No focal deficits appreciated PSYCHIATRIC: Mood and affect appropriate LABORATORY DATA, IMAGING STUDIES, MICROBIOLOGY: Please see below. ASSESSMENT AND PLAN: 79 year old female with a past medical history of end-stage renal disease on hemodialysis (MWF), diabetes mellitus, TIA, coronary artery disease status post [place], hypertension, basal cell carcinoma, and history of UTIs, who will be admitted for evaluation of mental status change likely 2/2 UTI. PROBLEMS: 1. Metabolic encephalopathy secondary to UTI -UA was turbid in color, 2+ protein, 2+ leukocyte esterase, too numerous to count white cells, 11 white cells and 3+ bacteria -f/u Blood cultures 2 pending -Prior cultures for urine was sensitive to ciprofloxacin, will continue ciprofloxacin until culture and sensitivity patterns are available -continue neuro checks 2. Bradycardia -possibly related to amlodpine -cardiac enzymes and TSH wnl -telemetry 3.End-stage renal disease on hemodialysis (MWF) -nephrology consulted, appreciate their recommendations -Renal diet 4. Anxiety -Hold clonazepam due to mental status 5.Chronic Hypertension -Continue home medications 6.Diabetes mellitus -detemir 20 units QHS with ISS -hypoglycemia protocol -HgA1C = 7.9 -carbohydrate consistent/renal diet DVT prophylaxis: Teds and sequentials DISPOSITION: pending urine cultures/sensitivities, PT/OT clearance I saw and evaluated the patient. I agree with the findings and plan of care as documented in the above note VS, I&O, 24H, Fishbone Vital Signs/I&O Vital Signs Date Time Temp Pulse Resp B/P (MAP) Pulse Ox O2 Delivery O2 Flow Rate FiO2 08/01/19 08:16 116/85 08/01/19 08:16 65 08/01/19 08:00 98.3 18 99 Room Air I&O- Last 24 Hours up to 6 AM 08/01/19 06:00 Intake Total 225 ml Output Total 45 ml Balance 180 ml Laboratory Data 24H LABS Laboratory Tests 2 07/31/19 17:48: Immature Granulocyte % (Auto) 0.3, Neutrophils (%) (Auto) 52.3, Lymphocytes (%) (Auto) 31.9, Monocytes (%) (Auto) 12.1H, Eosinophils (%) (Auto) 2.9, Basophils (%) (Auto) 0.5, Neutrophils # (Auto) 3.4, Lymphocytes # (Auto) 2.1, Monocytes # (Auto) 0.8, Eosinophils # (Auto) 0.2, Basophils # (Auto) 0.0, Nucleated Red Blood Cells % (auto) 0.0, Lactic Acid Level 1.5, Ammonia 26 07/31/19 18:15: Bedside Glucose (Misc Panel) 166H 07/31/19 18:20: Anion Gap 8, Glomerular Filtration Rate 13.2L, Calcium Level 9.1, Total Bilirubin 0.3, Direct Bilirubin < 0.1, Aspartate Amino Transf (AST/SGOT) 19, Ala nine Aminotransferase (ALT/SGPT) 18, Alkaline Phosphatase 83, Total Creatine Kinase 65, Creatine Kinase MB 2.1, Creatine Kinase MB Relative Index 3.23, Troponin I < 0.02, Total Protein 6.9, Albumin 3.0L, Albumin/Globulin Ratio 0.77L, Thyroid Stimulating Hormone (TSH) 1.240 07/31/19 18:35: Urine Color YELLOW, Urine Appearance TURBIDH, Urine pH 6.0, Urine Specific [place] 1.013, Urine Protein 2+H, Urine Glucose (UA) NEGATIVE, Urine Ketones NEGATIVE, Urine Blood 1+H, Urine Nitrite NEGATIVE, Urine Bilirubin NEGATIVE, Urine Urobilinogen 0.2, Urine Leukocyte Esterase 2+H, Urine WBC (Auto) TNTCH, Urine RBC (Auto) 11H, Urine Hyaline Casts (Auto) 0, Urine Bacteria (Auto) 3+H, Urine Squamous Epithelial Cells 0, Urine Sperm (Auto) 08/01/19 00:26: Bedside Glucose (Misc Panel) 128H 08/01/19 05:28: Anion Gap 7L, Glomerular Filtration Rate 10.0L, Estimated Mean Plasma Glucose 180H, Hemoglobin A1c 7.9, Calcium Level 8.2L, Magnesium Level 2.2, Total Bilirubin 0.5#, Aspartate Amino Transf (AST/SGOT) 11, Alanine Aminotransferase (ALT/SGPT) 13, Alkaline Phosphatase 64, Total Protein 6.2L, Albumin 2.6L, Albumin/Globulin Ratio 0.72L CBC/BMP Laboratory Tests 07/31/19 17:48 07/31/19 18:20 08/01/19 05:28 Microbiology Microbiology 07/31/19 Urine Culture, Received Pending 07/31/19 Blood Culture, Received Pending 07/31/19 Blood Culture, Received Pending YARA VALENZUELA PGY-1 Aug 01, 2019 10:49 ROSA AUGUST MD Aug 02, 2019 12:37
[2019-08-01 12:00] VITALS: BP 110/54
--- NOTE | 2019-08-01 14:00 | CR ---
DATE OF CONSULTATION: 08/01/2019 REASON FOR CONSULTATION: Is to assist in management of end-stage renal disease. HISTORY OF PRESENT ILLNESS: Mrs. Loco is an 79-year-old lady with known history of longstanding diabetes, hypertension, coronary artery disease, congestive heart failure, end-stage renal disease, and recurrent urinary tract infections (UTIs). She was admitted to [facility] last evening due to altered mental status. She has had similar episodes previously with prior history of transient ischemic attack (TIA) and also history of recurrent urinary tract infections. She did receive her dialysis treatment prior to admission. A nephrology consultation was requested, and the patient is seen this morning due to need for further dialysis treatments during the hospitalization. PAST MEDICAL AND SURGICAL HISTORY: Significant for: 1. Longstanding type 2 diabetes, currently on insulin. 2. Hypertension. 3. Coronary artery disease with prior myocardial infarction (ME). 4. History of TIA. 5. History of end-stage renal disease. 6. Anemia of chronic kidney disease. 7. Recurrent urinary tract infections. 8. History of basal cell carcinoma, status post resection. PAST SURGICAL HISTORY: Is significant for tonsillectomy, appendectomy, basal cell carcinoma resection, and AV fistula in her right arm. PERSONAL AND SOCIAL HISTORY: The patient is , and she denies any alcohol or drug use. She does have prior history of smoking, which she has significantly cut down to almost none. FAMILY HISTORY: Significant for diabetes and kidney disease. She also has family history for congestive heart failure. REVIEW OF SYSTEMS: The patient is still somewhat confused but able to have a conversation. She has difficulty finding words, but she can talk. She denies any fever or chills. Ears, nose, and throat: Are unremarkable. Cardiovascular system: Negative for dyspnea or chest pain. Respiratory system: Negative for cough or hemoptysis. Gastrointestinal (GI) system: Negative for vomiting or diarrhea. Genitourinary () system: Is significant for history of recurrent urinary tract infections. She does have dysuria but denies any flank pain. Musculoskeletal system: Significant for chronic back pain and degenerative arthritis. Hematological system: Significant for anemia of chronic kidney disease. Psychosocial system: Significant for mild dementia. Denies any anxiety or depression. Neurological system: Is significant for prior TIA. PHYSICAL EXAMINATION: The patient is without any acute distress this morning at the time of my visit. Temperature 98.3 degrees Fahrenheit, heart rate 65 per minute, and respiratory rate 18 per minute. Blood pressure 116/85 mmHg and oxygen saturation 99% on room air. Head is atraumatic. Neck is supple and without jugular venous distention (JVD) or thyroid enlargement. Pupils equal and reactive to light and sclerae anicteric. There is no oral thrush or ulcers. Heart sounds are regular. Lungs clear to auscultation. Abdomen: Soft and nontender. Bowel sounds normal. Extremities: Without any cyanosis or clubbing. Right upper arm AV fistula is patent. Neurologically, she is awake, has some difficulty finding words, but still she can have a conversation. She has no focal neurological deficit. LABORATORY DATA: WBC count 6.5, hemoglobin 11.5, and hematocrit 36.1. Platelets 271. Sodium 139, potassium 3.9, CO2 29, BUN 21, and creatinine 4.48. Glucose 164 and A1c 7.9. Hemoglobin 8.2 and magnesium 2.2. Calcium level is 8.2. Urinalysis showed 2+ leukocyte esterase, too numerous to count WBCs, and 11 RBCs with 3+ bacteria. Urine culture is pending. PROBLEMS: 1. End-stage renal disease. The patient was dialyzed yesterday prior to sending to the emergency room. She will be scheduled for next dialysis on 08/02/2019, which is her regular day. At this point, there is no emergent indication for dialysis as her electrolytes are normal and volume status is well-compensated. 2. Altered mentation, most likely related to urinary tract infection. She has had similar episodes in the past. CT scan of head was negative for any acute infarct or bleed. She is being treated for urinary tract infection, and her altered mentation seems to be already improved. 3. Anemia. She has anemia of chronic kidney disease, which is stable at present, and does not need any intervention. 4. Hypertension. Blood pressure seems very well controlled on current antihypertensive medications. No changes are needed at this time. 5. Diabetes. Historically, she has relatively poorly-controlled diabetes. Her A1c is 7.9, and blood sugars are well-controlled here in the hospital. I would recommend to continue with current insulin therapy. Thank you for involving me in the care of Mrs. Loco. I will follow her along with you.
[2019-08-01 16:00] VITALS: BP 151/68
[2019-08-01 20:00] VITALS: BP 150/68
[2019-08-01] MEDS: LEVEMIR (INSULIN DETEMIR) 1 UNITS/0.01ML SC SCH (21:02)
--- NOTE | 2019-08-01 22:31 | ECGEPIP ---
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
[2019-08-01] MEDS ORDERED: CIPROFLOXACIN 200 MG in IV 1 EA IV SCH (23:00)
[2019-08-01 23:59] VITALS: BP 154/68
[2019-08-02 04:00] VITALS: BP 150/68
[2019-08-02] MEDS ORDERED: EMLA CREAM 5GM (LIDOCAINE/PRILOCAINE) TOP SCH (06:00)
[2019-08-02 07:39] LABS: HEMATOCRIT 34.1 % (36.0-47.0); HEMOGLOBIN 10.7 g/dl (12.0-15.5); MEAN CORPUSCULAR HEMOGLOBIN 32.1 pg (27.0-33.0); MEAN CORPUSCULAR HGB CONC 31.4 g/dl (32.0-36.5); MEAN CORPUSCULAR VOLUME 102.4 fl (80.0-96.0); PLATELET COUNT, AUTOMATED 245 10^3/uL (150-450); RED BLOOD COUNT 3.33 10^6/uL (4.00-5.40); WHITE BLOOD COUNT 8.1 10^3/uL (4.0-10.0)
[2019-08-02 08:00] VITALS: BP 141/65
[2019-08-02 08:09] LABS: CALCIUM LEVEL 9.5 MG/DL (8.8-10.2); CREATININE FOR GFR 5.82 MG/DL (0.55-1.30); GLOMERULAR FILTRATION RATE 7.4 (>32); POTASSIUM SERUM 4.1 MEQ/L (3.5-5.1)
[2019-08-02] MEDS: ASPIRIN 81 MG ENTERIC TAB PO SCH (08:24)
[2019-08-02] MEDS: SUCROFERRIC OXYHYDROXIDE 500MG CHEW TAB (VELPHORO) PO SCH ×3 (08:24→17:46)
[2019-08-02] MEDS: amLODIPine 10 MG TAB PO SCH (08:25)
[2019-08-02] MEDS: CALCITRIOL 0.25 MCG CAP (S0169) PO SCH ×2 (08:25→20:47)
[2019-08-02] MEDS: GABAPENTIN 100 MG CAP PO SCH ×2 (08:25→20:46)
[2019-08-02] MEDS: CLOPIDOGREL 75 MG TAB PO SCH (08:25)
[2019-08-02] MEDS: cloNIDine 0.1 MG TAB PO SCH ×2 (08:25→20:47)
[2019-08-02] MEDS: FUROSEMIDE 80 MG TAB PO SCH ×2 (08:25→20:47)
[2019-08-02] MEDS: DULoxetine 30 MG CAP (CYMBALTA) PO SCH (08:26)
[2019-08-02] MEDS: FAMOTIDINE 20 MG TAB PO SCH ×2 (08:26→20:46)
[2019-08-02] MEDS: ATORVASTATIN 20 MG TAB PO SCH (08:26)
[2019-08-02] MEDS: CARVedilol 6.25 MG TAB PO SCH (08:26)
[2019-08-02] MEDS: HumaLOG INSULIN (NovoLOG) PER UNIT SC SCH ×4 (08:27→20:41)
--- NOTE | 2019-08-02 09:51 | IPNPDOC ---
Date Seen The patient was seen on 08/02/19. Progress Note SUBJECTIVE: Patient is a 79 year old female with a past medical history of end- stage renal disease on hemodialysis (MWF), diabetes mellitus, TIA, coronary artery disease status post MS, hypertension, basal cell carcinoma, and history of UTIs, who will be admitted for evaluation of mental status change likely 2/2 UTI. Patient was seen and examined today, sitting comfortably on the edge of her bed. She states she is currently feeling well but does note feeling somewhat unsteady while walking around. She states that she would like to continue working with physical therapy was to the hospital to help with this. She states she has been having dysuria when she urinates, which has improved over the past 2 days. She states she typically does not produce much urine and continues on chronic h emodialysis. She denies any urinary frequency or urgency. OBJECTIVE PHYSICAL EXAMINATION: VITAL SIGNS: Please see below. GENERAL: Alert, comfortable, in no acute distress HEENT: Normocephalic, atraumatic, PERRLA, EOMI, moist mucous membranes CARDIOVASCULAR: Regular rate and rhythm, normal S1 and S2. Systolic ejection murmur auscultated over the right upper sternal border RESPIRATORY: Clear to auscultation bilaterally with equal air entry bilaterally. No wheezing, rhonchi, or rales. ABDOMEN: Soft, nontender, nondistended, bowel sounds present EXTREMITIES: Bilateral edema in the lower extremities. Pulses 2+/4 in bilateral upper and lower extremities SKIN: [place], warm, dry NEUROLOGIC: Alert and oriented 3 to person, place, and time. No focal deficits appreciated PSYCHIATRIC: Mood and affect appropriate LABORATORY DATA, IMAGING STUDIES, MICROBIOLOGY: Please see below. ASSESSMENT AND PLAN: 79 year old female with a past medical history of end-stage renal disease on hemodialysis (MWF), diabetes mellitus, TIA, coronary artery disease status post MS, hypertension, basal cell carcinoma, and history of UTIs, who will be admitted for evaluation of mental status change likely 2/2 UTI. PROBLEMS: 1. Metabolic encephalopathy secondary to UTI -UA was turbid in color, 2+ protein, 2+ leukocyte esterase, too numerous to count white cells, 11 white cells and 3+ bacteria -f/u Blood cultures 2 negative after 24 hours Urine culture grew Klebsiella pneumoniae sensitive to fluoroquinolones -Switch to oral ciprofloxacin (day #2 of 14 of antibiotics for pyelonephritis) considering culture and sensitivities along with patient's medication allergies -continue neuro checks 2. Bradycardia -possibly related to amlodpine -cardiac enzymes and TSH wnl -Stable in the 50s to 60s 3.End-stage renal disease on hemodialysis (MWF) -nephrology consulted, appreciate their recommendations -Renal diet 4. Anxiety -Hold clonazepam due to mental status 5.Chronic Hypertension -Continue home medications 6.Diabetes mellitus -detemir 20 units QHS with ISS -hypoglycemia protocol -HgA1C = 7.9 -carbohydrate consistent/renal diet DVT prophylaxis: Teds and sequentials DISPOSITION: dialysis today, PT/OT clearance I saw and evaluated the patient. I agree with the findings and plan of care as documented in the above note VS, I&O, 24H, Fishbone Vital Signs/I&O Vital Signs Date Time Temp Pulse Resp B/P (MAP) Pulse Ox O2 Delivery O2 Flow Rate FiO2 08/02/19 08:26 62 141/65 08/02/19 08:00 98.6 16 97 Room Air I&O- Last 24 Hours up to 6 AM 08/02/19 05:59 Intake Total 1060 ml Output Total 450 ml Balance 610 ml Laboratory Data 24H LABS Laboratory Tests 2 08/01/19 12:03: Bedside Glucose (Misc Panel) 157H 08/01/19 17:27: Bedside Glucose (Misc Panel) 150H 08/01/19 20:23: Bedside Glucose (Misc Panel) 202H 08/02/19 07:22: Nucleated Red Blood Cells % (auto) 0.0, Anion Gap 8, Glomerular Filtration Rate 7.4L, Calcium Level 9.5# CBC/BMP Laboratory Tests 08/02/19 07:22 Microbiology Microbiology 07/31/19 Urine Culture - Final, Complete Klebsiella Pneumoniae 07/31/19 Blood Culture - Preliminary, Resulted No growth after 24 hours . All specim... 07/31/19 Blood Culture - Preliminary, Resulted No growth after 24 hours . All specim... YARA VALENZUELA PGY-1 Aug 02, 2019 09:51 ROSA AUGUST MD Aug 02, 2019 12:41
[2019-08-02] MEDS ORDERED: HEPARIN 1,000 UNITS/ML 10ML VIAL (FOR RADIOLOGY& DIALYSIS ONLY) IV ONE (10:15)
[2019-08-02] MEDS ORDERED: LIDOCAINE 1% SDV 5 ML VIAL SQ ONE (10:15)
[2019-08-02] MEDS ORDERED: CIPR-249 PO (11:51)
--- NOTE | 2019-08-02 12:54 | IPN ---
DATE OF VISIT: 08/02/2019 Ms. Loco is seen this morning during hemodialysis. She is feeling much better today but still weak. She denies any nausea, vomiting, fever, chills, dyspnea or chest pain. She is being treated for urinary tract infection and her altered mentation has improved. The patient is scheduled for vascular procedure tomorrow in [place] and wants to keep her appointment. On physical exam, temperature 98.6 degrees Fahrenheit, heart rate 62 per minute and respiratory rate 16 per minute. Blood pressure 140/65 mmHg and oxygen saturation 97% on room air. Head is atraumatic. Neck is supple and without jugular venous distention (JVD) or thyroid enlargement. No oral thrush or ulcers noted. Heart sounds are regular and lungs clear to auscultation. Abdomen soft and nontender, and bowel sounds are normal. Extremities have no cyanosis or clubbing. Right arm arteriovenous (AV) fistula is patent and being used for dialysis right now. Neurologically, she seems to be at about her baseline mentation today. Today's labs show WBC count 8.1, hemoglobin 10.7 and hematocrit 34.1. Platelets 245. Sodium 138, potassium 4.1, CO2 25, BUN 46 and creatinine 5.82. Glucose 146 and calcium 9.5. PROBLEMS: 1. End-stage renal disease. Patient is being dialyzed and she is tolerating dialysis well. We are removing about 1.5 liters fluid as tolerated. Her volume status seems reasonably well-compensated. 2. Altered mentation most likely related to a urinary tract infection and she is almost back to her baseline mentation now. She is being treated for urinary tract infection (UTI). 3. Anemia. Anemia is stable and does not need any intervention at present. 4. Hypertension. Blood pressure very well controlled on current antihypertensive meds and no changes are being made today. DISPOSITION: From a renal standpoint, patient can be discharged to go to [place] tomorrow as she has a vascular appointment there.
[2019-08-02 16:00] VITALS: BP 138/64
[2019-08-02] MEDS ORDERED: CIPROFLOXACIN 500 MG TAB PO SCH (18:00)
[2019-08-02] MEDS ORDERED: CIPROFLOXACIN 250 MG TAB PO SCH (18:00)
[2019-08-02 20:00] VITALS: BP 122/52
[2019-08-02] MEDS: LEVEMIR (INSULIN DETEMIR) 1 UNITS/0.01ML SC SCH (20:47)
[2019-08-03 04:00] VITALS: BP 152/70
[2019-08-03 06:10] LABS: HEMATOCRIT 33.6 % (36.0-47.0); HEMOGLOBIN 10.2 g/dl (12.0-15.5); MEAN CORPUSCULAR HEMOGLOBIN 30.7 pg (27.0-33.0); MEAN CORPUSCULAR HGB CONC 30.4 g/dl (32.0-36.5); MEAN CORPUSCULAR VOLUME 101.2 fl (80.0-96.0); PLATELET COUNT, AUTOMATED 250 10^3/uL (150-450); RED BLOOD COUNT 3.32 10^6/uL (4.00-5.40); WHITE BLOOD COUNT 7.5 10^3/uL (4.0-10.0)
[2019-08-03 06:27] LABS: CALCIUM LEVEL 10.2 MG/DL (8.8-10.2); CREATININE FOR GFR 4.2 MG/DL (0.55-1.30); GLOMERULAR FILTRATION RATE 10.8 (>32)
[2019-08-03 08:00] VITALS: BP 151/67
[2019-08-03] MEDS: ATORVASTATIN 20 MG TAB PO SCH (08:42)
[2019-08-03] MEDS: amLODIPine 10 MG TAB PO SCH (08:42)
[2019-08-03] MEDS: GABAPENTIN 100 MG CAP PO SCH (08:42)
[2019-08-03] MEDS: FAMOTIDINE 20 MG TAB PO SCH (08:42)
[2019-08-03] MEDS: ASPIRIN 81 MG ENTERIC TAB PO SCH (08:42)
[2019-08-03] MEDS: CLOPIDOGREL 75 MG TAB PO SCH (08:42)
[2019-08-03 08:43] VITALS: BP 151/67
[2019-08-03] MEDS: FUROSEMIDE 80 MG TAB PO SCH (08:43)
[2019-08-03] MEDS: CARVedilol 6.25 MG TAB PO SCH (08:43)
[2019-08-03] MEDS: CALCITRIOL 0.25 MCG CAP (S0169) PO SCH (08:43)
[2019-08-03] MEDS: cloNIDine 0.1 MG TAB PO SCH (08:43)
--- NOTE | 2019-08-03 09:21 | DS.PDOC ---
Discharge Summary General Date of Admission Jul 31, 2019 at 22:36 Date of Discharge 08/03/2019 Attending Physician: ROSA AUGUST MD Specialist/Consultants Involve: Duane Kelley MD Discharge Summary PROCEDURES PERFORMED DURING STAY: None. ADMITTING DIAGNOSES: 1. Metabolic encephalopathy secondary to UTI. 2. UTI 3. Bradycardia. 4. End-stage renal disease on hemodialysis. 5. Anxiety. 6. Hypertension. 7. Diabetes mellitus. 8. Chronic CAD DISCHARGE DIAGNOSES: 1. Metabolic encephalopathy secondary to UTI. 2. UTI 3. Bradycardia. 4. End-stage renal disease on hemodialysis. 5. Anxiety. 6. Hypertension. 7. Diabetes mellitus. 8. Chronic CAD COMPLICATIONS/CHIEF COMPLAINT: Altered Mental Status, Uti, Bradycardia. HISTORY OF PRESENT ILLNESS: Shanda Loco is an 79-year-old female who presented to the emergency room after being sent from dialysis due to altered mental status. She stated that she remembers the room was spinning while on dialysis and states she may have been somewhat confused at that time. She could not recall any other symptoms at that time. She also noted she had been having back pain and dysuria over the past 2-3 days and states she had been drinking cranberry juice to help with this. On presentation in the emergency room, she wa s alert and oriented 2, and answering questions appropriately. Head CT without contrast was negative for any acute findings. UA was positive for white blood cells, leukocyte esterase, bacteria, and. Teen. Urine culture was sent to the lab. HOSPITAL COURSE: Patient was admitted to the hospital, started on ciprofloxacin for empiric treatment of UTI, considering her most recent UTI was sensitive to ciprofloxacin and the patient has a number of antibiotic allergies. Her mental status did continue to improve during her stay and on the day following admission she was alert and oriented 4 to person to person, place, time and situation. During her admission. She was also found to be somewhat bradycardic with heart rates stable in the 50s to 60s. This is possibly related to her amlodipine. While inpatient, the patient received dialysis on her normal outpatient dialysis schedule Wednesday, Wednesday, Wednesday. Urine cultures resulted with Klebsiella pneumoniae which was sensitive to ciprofloxacin and the patient was switched to oral antibiotics. She was discharged to complete a 14 day course of oral ciprofloxacin for pyelonephritis. On day of discharge, patient was found to be stable and safe for discharge. DISCHARGE MEDICATIONS: Please see below. ALLERGIES: Please see below. PHYSICAL EXAMINATION ON DISCHARGE: VITAL SIGNS: Please see below. GENERAL: Alert, comfortable, in no acute distress HEENT: Normocephalic, atraumatic, PERRLA, EOMI, moist mucous membranes CARDIOVASCULAR: Regular rate and rhythm, normal S1 and S2. Systolic ejection murmur auscultated over the right upper sternal border RESPIRATORY: Clear to auscultation bilaterally with equal air entry bilaterally. No wheezing, rhonchi, or rales. ABDOMEN: Soft, nontender, nondistended, bowel sounds present EXTREMITIES: Bilateral edema in the lower extremities. Pulses 2+/4 in bilateral upper and lower extremities SKIN: [place], warm, dry NEUROLOGIC: Alert and oriented 3 to person, place, and time. No focal deficits appreciated PSYCHIATRIC: Mood and affect appropriate LABORATORY DATA: Please see below. IMAGING: (As read by radiologist) CT head without contrast 07/31/19: 1. There is mild to moderate age-related parenchymal volume loss. White matter changes are demonstrated in the subcortical, centrum semiovale and periventricular white matter consistent with age related small vessel white matter angiopathic gliosis. 2. The degree of ventricular dilatation is normal for age and/or degree of atrophy present. CXR 07/31/19: Chronic stable changes. No acute cardiopulmonary process appreciated. PROGNOSIS: Fair ACTIVITY: As tolerated. DIET: As tolerated DISCHARGE PLAN: Home DISPOSITION: Home DISCHARGE INSTRUCTIONS: 1. Follow up with her PCP in 7-10 days. 2. Complete full course of antibiotics with ciprofloxacin daily at 6:00 PM for the next 12 days. 3. Continue on your regular dialysis schedule. 4. If your symptoms return or your condition worsens, call your PCP or return to the ED for further evaluation ITEMS TO FOLLOWUP ON ON OUTPATIENT: 1. Pyelonephritis complete full course of antibiotics 2. Hemodialysis continue regular outpatient schedule DISCHARGE CONDITION: Stable. I saw and evaluated the patient. I agree with the findings and plan of care as documented in the documenters note. I spent 45 minutes coordinating this patient's discharge. Vital Signs/I&Os Vital Signs Date Time Temp Pulse Resp B/P (MAP) Pulse Ox O2 Delivery O2 Flow Rate FiO2 08/03/19 08:43 151/67 08/03/19 08:43 62 08/03/19 08:00 98.2 18 99 Room Air I&O- Last 24 Hours up to 6 AM 08/03/19 06:00 Intake Total 1320 ml Output Total 1600 ml Balance -280 ml Laboratory Data Labs 24H Laboratory Tests 2 08/02/19 13:53: Bedside Glucose (Misc Panel) 107 08/02/19 17:15: Bedside Glucose (Misc Panel) 230H 08/02/19 20:33: Bedside Glucose (Misc Panel) 125H 08/03/19 05:29: Nucleated Red Blood Cells % (auto) 0.0, Anion Gap 8, Glomerular Filtration Rate 10.8L, Calcium Level 10.2 CBC/BMP Laboratory Tests 08/03/19 05:29 FSBS Laboratory Tests Test 08/02/19 13:53 08/02/19 17:15 08/02/19 20:33 Range/Units Bedside Glucose (Misc Panel) 107 230 125 83-110 MG/DL Microbiology Microbiology 07/31/19 Urine Culture - Final, Complete Klebsiella Pneumoniae 07/31/19 Blood Culture - Preliminary, Resulted No Growth after 48 hours. All Specime... 07/31/19 Blood Culture - Preliminary, Resulted No Growth after 48 hours. All Specime... Discharge Medications Scheduled Amlodipine Besylate (Amlodipine Besylate) 10 Mg Tablet, 10 MG PO DAILY, (Reported) Aspirin (Aspirin EC) 81 Mg Tab, 81 MG PO DAILY, (Reported) Atorvastatin Calcium (Atorvastatin Calcium) 40 Mg Tablet, 40 MG PO DAILY, (Reported) Calcitriol (Calcitriol) 0.25 Mcg Capsule, 0.25 MCG PO BID, (Reported) Carvedilol (Coreg) 6.25 Mg Tab, 6.25 MG PO DAILY, (Reported) Ciprofloxacin HCl (Cipro) 500 Mg Tablet, 500 MG PO DAILY@1800 Take 1 tab daily at 18:00 Clonidine HCl (Clonidine HCl) 0.1 Mg Tablet, 0.1 MG PO BID, (Reported) Clopidogrel Bisulfate (Plavix) 75 Mg Tab, 75 MG PO DAILY, (Reported) Duloxetine Hcl (Cymbalta) 30 Mg Cap, 30 MG PO DAILY, (Reported) Famotidine (Famotidine) 20 Mg Tablet, 20 MG PO BID, (Reported) Furosemide (Furosemide) 80 Mg Tablet, 80 MG PO BID, (Reported) Gabapentin (Gabapentin) 100 Mg Capsule, 100 MG PO BID, (Reported) Insulin Glargine (Lantus) 1 Units/0.01 Ml Susp, 20 UNITS SC QHS, (Reported) Insulin Lispro (Humalog Kwikpen U-100) 100 Unit/Ml Inj, 6 UNITS SC AC, (Reported) Lidocaine/Prilocaine (Lidocaine-Prilocaine Cream) 2.5%/2.5% Cream..g., 1 DOSE TOP 3XW, (Reported) 1 TO 2 HOURS BEFORE DIALYSIS ON WEDNESDAY, WEDNESDAY AND WEDNESDAY Sucroferric Oxyhydroxide (Velphoro) 500 Mg Tab.chew, 500 MG PO WM, (Reported) Scheduled PRN Acetaminophen (Tylenol Extra Strength) 500 Mg Tablet, 1,000 MG PO TID PRN for PAIN / FEVER, (Reported) Albuterol Sulfate (Proair Hfa) 8.5 Gm Hfa.aer.ad, 2 PUFF INH Q4H PRN for SOB/WHEEZING, (Reported) Clonazepam (Clonazepam) 0.25 Mg Tab.rapdis, 0.25 MG PO BID PRN for ANXIETY, (Reported) Nystatin (Nystatin Powder) 15 Gm Powder, 1 DOSE TOP TID PRN for REDNESS/IRRITATION, (Reported) APPLY TO ABDOMINAL FOLDS Ondansetron HCl (Zofran) 4 Mg Tablet, 4 MG PO Q6H PRN for NAUSEA OR VOMITING, (Reported) Polyethylene Glycol 3350 (Miralax) 119 Gm Powder, 17 GM PO DAILY PRN for CONSTIPATION, (Reported) Salmeterol/Fluticasone (Advair 250-50 Diskus) 1 Each Blst.w.dev, 1 PUFF INH BID PRN for SHORTNESS OF BREATH, (Reported) PATIENT STATES SHE ONLY TAKES NEEDED Tramadol HCl (Tramadol HCl) 50 Mg Tablet, 50 MG PO BID PRN for PAIN, (Reported) Allergies Coded Allergies: ceftriaxone (Verified Allergy, Severe, SOB, hives,, 01/25/19) Penicillins (Verified Allergy, Intermediate, unknown , 01/25/19) codeine (Verified Allergy, Intermediate, hives/ rash, 01/25/19) nitroglycerin (Verified Allergy, Intermediate, unknown , 01/25/19) Sulfa (Sulfonamide Antibiotics) (Verified Adverse Reaction, Intermediate, dizziness, 01/25/19) YARA VALENZUELA PGY-1 Aug 03, 2019 09:21 ROSA AUGUST MD Aug 03, 2019 15:38
== END 2019-08-03 09:24 | disposition home health service (06) | DRG 689 ==
LOC: M ED 16:24 → EDBD 16:24 → M ED INP 22:36 → M PCU 08-01 01:36
PROVIDERS: ADMIT Internal Medicine; ATTEND Internal Medicine
PROC: 5A1D70Z Performance of Urinary Filtration, Intermittent, Less than 6 Hours Per Day (ICD-10-PCS; principal; 2019-08-02)
DX: N39.0 Urinary tract infection, site not specified (principal); N18.6 End stage renal disease; G93.41 Metabolic encephalopathy; I12.0 Hypertensive chronic kidney disease with stage 5 chronic kidney disease or end stage renal disease; I25.10 Atherosclerotic heart disease of native coronary artery without angina pectoris; E11.9 Type 2 diabetes mellitus without complications; F41.9 Anxiety disorder, unspecified; B96.1 Klebsiella pneumoniae [K. pneumoniae] as the cause of diseases classified elsewhere; Z79.82 Long term (current) use of aspirin; Z79.899 Other long term (current) drug therapy; Z79.4 Long term (current) use of insulin; Z88.0 Allergy status to penicillin; Z88.5 Allergy status to narcotic agent; Z88.8 Allergy status to other drugs, medicaments and biological substances; I25.2 Old myocardial infarction; Z86.73 Personal history of transient ischemic attack (TIA), and cerebral infarction without residual deficits; D63.1 Anemia in chronic kidney disease; Z85.828 Personal history of other malignant neoplasm of skin

== ENCOUNTER 2019-11-13 07:59 | Inpatient (IN) | payer MEDICARE, MEDICAID ==
[~2019-11-13] VITALS: Ht 167.6 cm; Wt 79.0 kg
[~2019-11-13 07:59] MED LIST changes: +CIPR-249 PO; +CLON-412 PO; +CLON0.5T2 PO; -CLON0.5T8 PO
[2019-11-13 10:20] VITALS: BP 155/65
[2019-11-13] MEDS ORDERED: LEVALBUTEROL 1.25 MG/0.5 ML CONCENTRATE NEB INH PRN (10:30)
[2019-11-13] MEDS ORDERED: GLUCAGON FOR INJ 1 MG VIAL (J1610) SC PRN (10:30)
[2019-11-13] MEDS ORDERED: GLUCOSE 4 GM CHEW TABLET PO PRN (10:30)
[2019-11-13] MEDS ORDERED: DEXTROSE 50% 50 ML SYRINGE IV PRN (10:30)
[2019-11-13] MEDS ORDERED: LEVALBUTEROL 1.25 MG/0.5 ML CONCENTRATE NEB NEB ONE (11:00)
[2019-11-13] MEDS ORDERED: HumaLOG INSULIN (NovoLOG) PER UNIT SC SCH ×3 (12:00→21:00)
[2019-11-13 12:02] LABS: BASO % 0.3 % (0.0-1.0); EOS % 0.1 % (0.0-3.0); HEMATOCRIT 35.4 % (36.0-47.0); HEMOGLOBIN 11.1 g/dl (12.0-15.5); LYMPH # 1.3 10^3/uL (1.5-5.0); LYMPH % 8.9 % (24.0-44.0); MEAN CORPUSCULAR HEMOGLOBIN 33.2 pg (27.0-33.0); MEAN CORPUSCULAR HGB CONC 31.4 g/dl (32.0-36.5); MONO # 1.4 10^3/uL (0.0-0.8); MONO % 9.9 % (0.0-5.0); NEUTROPHILS # 11.4 10^3/uL (1.5-8.5); NEUTROPHILS % 80.4 % (36.0-66.0); RED BLOOD COUNT 3.34 10^6/uL (4.00-5.40); WHITE BLOOD COUNT 14.2 10^3/uL (4.0-10.0)
[2019-11-13] MEDS ORDERED: VANC-7 IV (12:15)
[2019-11-13] MEDS ORDERED: LEVO250T12 PO (12:15)
[2019-11-13] MEDS ORDERED: FURO80TA2 PO (12:15)
[2019-11-13] MEDS ORDERED: VELT1POW PO (12:15)
[2019-11-13 12:26] LABS: ERYTHROCYTE SEDIMENTATION RATE 65 mm/hr (0-30)
[2019-11-13 12:28] LABS: PLATELET COUNT, AUTOMATED 252 10^3/uL (150-450)
[2019-11-13 12:31] LABS: BILIRUBIN,TOTAL 0.5 MG/DL (0.2-1.0); C REACTIVE PROTEIN QUANTITATIV 2.44 MG/DL (0.00-0.30); CALCIUM LEVEL 9.2 MG/DL (8.8-10.2); CREATININE FOR GFR 6.82 MG/DL (0.55-1.30); GLOMERULAR FILTRATION RATE 6.2 (>32); POTASSIUM SERUM 5.6 MEQ/L (3.5-5.1); TOTAL PROTEIN 6.6 GM/DL (6.4-8.2)
[2019-11-13 12:35] LABS: CK-MB VALUE MASS 6.2 NG/ML (<3.6); MB/CK RELATIVE INDEX 4.19 (< OR =4); TROPONIN I 2.4 NG/ML (< 0.10)
[2019-11-13] MEDS ORDERED: ACETAMINOPHEN 500 MG TAB PO PRN (13:30)
[2019-11-13] MEDS ORDERED: traMADol 50 MG TAB PO PRN (13:30)
[2019-11-13] MEDS ORDERED: ALBUTEROL 90 MCG/ACT 8GM HFA INHALER INH PRN (13:30)
[2019-11-13] MEDS ORDERED: MIRALAX *UNIT DOSE* 17GM PACKET PO PRN (13:30)
[2019-11-13] MEDS ORDERED: ONDANSETRON 4 MG TAB (S0181) PO PRN (13:30)
[2019-11-13] MEDS ORDERED: NYSTATIN 100,000 UNITS/GM TOPICAL PWD 15 GM TOP PRN (13:30)
[2019-11-13] MEDS ORDERED: VANCOMYCIN 1000 MG/20 ML VIAL (J3370) IV SCH (13:30)
--- NOTE | 2019-11-13 14:22 | ECGEPIP ---
[facility] Test Date: 2019-11-13 Pat Name: DEION JADE Department: Room: - Gender: Female [employer]: JENN : 1940 Requested By: JO-ANN Palma Order Number: [id number] Reading MD: Lorna Lam Measurements Intervals [place] Rate: 89 P: 15 [place]: 144 QRS: 101 QRSD: 157 T: -23 QT: 399 QTc: 487 Interpretive Statements SINUS RHYTHM PREVIOUS WITH SINUS MENDEZ RIGHT AXIS DEVIATION NEW PROB LPHB RIGHT BUNDLE BRANCH BLOCK BIFASICULAR BLOCK VOLTAGE CRITERIA FOR LVH, WITH REPOLAR ABNORMALITY VS ISCHEMIA PULM DIS PATTERN ECTOPY ABSENT C/W 07/31/19 Electronically Signed on 11-13-2019 14:22:46 EST by Lorna Lam
[2019-11-13] MEDS ORDERED: HEPARIN SOD (PORCINE) 5000 UNITS/ML VIAL (J1644 PER 1000UNITS) IV PRN (15:00)
[2019-11-13 15:57] LABS: CK-MB VALUE MASS 8.8 NG/ML (<3.6); MB/CK RELATIVE INDEX 4.02 (< OR =4); TROPONIN I 4.88 NG/ML (< 0.10)
[2019-11-13] MEDS ORDERED: LevoFLOXacin IV 500 MG in IV 1 EA IV ONE (16:00)
[2019-11-13] MEDS ORDERED: HEPARIN DRIP 25,000 UNITS in IV 1 EA IV SCH (16:00)
[2019-11-13] MEDS ORDERED: VANC1INJ39 IV (16:51)
[2019-11-13 17:30] VITALS: BP 155/69
[2019-11-13] MEDS ORDERED: SUCROFERRIC OXYHYDROXIDE 500MG CHEW TAB (VELPHORO) PO SCH (18:00)
--- NOTE | 2019-11-13 19:01 | REP ---
Clinical: Shortness of breath. Comparison: 10/24/2019, 07/31/2019 Findings: Mediastinum and cardiac silhouette are stable with evidence for prior sternotomy again noted. Diffuse chronic interstitial changes are appreciated superimposed basilar atelectasis cannot be excluded. No obvious effusion. No pneumothorax. Skeletal structures demonstrate osteopenia and degenerative changes. Right axillary stent graft noted. Impression: Chronic-appearing changes. Superimposed basilar atelectasis cannot be excluded. Electronically Signed by Alvaro Gann MD 11/13/2019 06:52 P
[2019-11-13 19:06] LABS: CK-MB VALUE MASS 9.7 NG/ML (<3.6); MB/CK RELATIVE INDEX 3.8 (< OR =4); TROPONIN I 9.59 NG/ML (< 0.10)
[2019-11-13 19:10] VITALS: BP 143/66
--- NOTE | 2019-11-13 19:32 | DSES ---
DATE OF ADMISSION: 11/13/2019 DATE OF DISCHARGE: 11/13/2019 The patient is being transferred to [facility]. Accepting physician is Dr. Duval. CONSULTANTS DURING ADMISSION: Dr. Hannah, topper packer. REASON FOR TRANSFER: Non ST elevation myocardial infarction requiring coronary angiogram with possible stenting. DISCHARGE DIAGNOSES: 1. Non ST elevation myocardial infarction. 2. History of coronary artery disease, coronary artery bypass graft (CABG), myocardial infarction. 3. End stage renal disease on maintenance hemodialysis. 4. Bibasilar pneumonia, community acquired. 5. Hyperkalemia. 6. Sepsis secondary to pneumonia. 7. Anemia of chronic disease. 8. Diabetic nephropathy. 9. Diabetic neuropathy. 10. Type 2 diabetes. 11. Hypertension. 12. Hyperlipidemia. 13. Depression. 14. History of transient ischemic attack. 15. History of reflux. 16. History of chronic obstructive pulmonary disease (COPD) without acute exacerbation. DISCHARGE MEDICATIONS: - heparin drip for non ST elevation myocardial infarction - aspirin 81 mg daily - Plavix 75 mg daily - atenolol - Coreg 6.25 mg daily - Lipitor 40 mg at night - vancomycin 1 gram on hemodialysis days - Levaquin 250 mg every 48 hours - ProAir HFA two puffs inhaled every 4 hours as needed - Norvasc 10 mg daily - Calcitriol 0.25 mcg twice a day - clonazepam 0.25 mg twice a day as needed for anxiety - clonidine 0.1 mg twice a day - Cymbalta 30 mg at night - famotidine 20 mg twice a day - Lasix 160 mg daily - gabapentin 100 mg three times a day - Lantus insulin 20 units at night - Lispro 6 units subcutaneously before food - Prilocaine/Lidocaine one topically three times a week - nystatin powder topically three times a day - Zofran 4 mg by mouth every 6 hours as needed for nausea and vomiting - Veltassa 8.4 mg by mouth twice a week - MiraLAX 17 grams daily as needed - Advair 250/50 one puff inhaled twice a day as needed - Velphoro 50 mg with meals - Tramadol 50 mg twice a day as needed for pain HOSPITAL COURSE: This is an 79-year-old female with a history of end stage renal disease on maintenance dialysis, congestive heart failure (CHF), grade II diastolic dysfunction with ejection fraction 50 to 55%, coronary artery disease, myocardial infarction, coronary artery bypass graft (CABG) in 2005, follows with Dr. Marks at [facility], presents to [facility] with acute onset of chest pressure, shortness of breath starting at 3:00 a.m. this morning with inability to breathe. The patient denied any weight gain, had a temperature of 100.7. Chest x-ray showed bilateral infiltrates, treated for community acquired pneumonia and fluid overload and transferred to [facility]. She did receive intravenous vancomycin at [facility] and Levaquin at [facility]. She was emergently transferred to [facility] for her dialysis needs. The patient underwent dialysis with 3 kilos removed with persistent chest pain, initial troponin of 2.4, increased to 4.88 with worsening chest tightness. She did not want nitroglycerin due to prior allergic reaction. She was started on intravenous heparin and was agreeable to be transferred to [facility] for further management. The patient was hyperkalemic and underwent hemodialysis. Respiratory panel was negative. She did have a temperature at [facility] of 100.7 temperature. White count at [facility] was 14.7, it was 18,000 at [facility]. EKG showed sinus rhythm, ventricular rate of 89, right axis deviation, left posterior hemiblock, right bundle branch block, bifascicular block. PHYSICAL EXAMINATION: On discharge: Temperature 97.5, pulse 92, respiratory rate 20, blood pressure 155/65, 95% on 2 liters nasal cannula. GENERAL: The patient is awake, alert, oriented to person, place and time. Able to converse without difficulty. She has no respiratory distress or use of respiratory accessory muscles. Mild jugular venous distention (JVD). No thyromegaly or cervical lymphadenopathy. Dry mucous membranes. LUNGS: Diminished with bibasilar rales. Right AV fistula noted. ABDOMEN: Soft, nontender, nondistended. Positive bowel sounds times four quadrants. No rebound or guarding. No hepatosplenomegaly or abdominal bruits. EXTREMITIES: No cyanosis or clubbing. Trace edema bilateral lower extremities. LABORATORY DATA: White count 14.2, hemoglobin 11, hematocrit 35, platelet count 252, 80% neutrophils, 8.9 lymphocytes, 9.9 monocytes, 0.1 eosinophils. Sodium 139, potassium 5.6, chloride 102, bicarbonate 25, BUN 52, creatinine 6.82, glucose 201, lactic acid 3.3, calcium 9.2, total bilirubin 0.5, AST 26, ALT 18, alkaline phosphatase 56, total CK 148, MB fraction 6.2, relative index 4.19, troponin 2.40, C-reactive protein 2.44, BNP 03360. Total protein 6.6, albumin 3, albumin-globulin ratio 0.83. Repeat cardiac markers at 1421 hours: Total CK 219, MB fraction 8.8, relative index 4.02, troponin 4.88. Microbiology: 11/13/2019 respiratory panel negative. Urine culture pending. Blood culture pending. Urinalysis: Yellow color, hazy appearance, pH of 8, specific gravity 1.009, protein 2+, glucose 3+, negative ketones, 1+ blood, negative nitrite, negative bilirubin, urobilinogen 0.2, leukocyte esterase 1+, WBC 20, RBC 5, hyaline cast 0, 1+ bacteria, 4 squamous epithelial cells. IMAGING STUDIES: Pending. Time spent on discharge: 45 minutes. edited: 11/14/2019 0743 tkf MOSHE
--- NOTE | 2019-11-13 19:35 | HPE ---
DATE OF ADMISSION: 11/13/2019 BEND SORTER: Dr. Kelley CHIEF COMPLAINT: Chest tightness, shortness of breath. HISTORY OF PRESENT ILLNESS: This is an 79-year-old female with a history of end-stage renal disease on maintenance hemodialysis, hypertension, hyperlipidemia, diabetes, coronary artery disease (CAD), coronary artery bypass graft (CABG) 2005, myocardial infarction (NV), transient ischemia attack (TIA) on chronic aspirin, Plavix, was in her usual state of health until 03:00 a.m. this morning when she suddenly awoke from sleep with chest pressure and tightness accompanied with shortness of breath. The patient denied any recent weight gain but says that she has had increasing lower extremity edema and usually weighs 145 pounds which has not changed. She was increasingly short of breath at rest and had a dry cough that was nonproductive. She also had some headache without nausea or vomiting but did have one episode of loose stool today. She had abdominal discomfort and had been with some weakness for the past two weeks and fell about two weeks ago. The patient says that she had a temperature of 100.7 when she was seen over at [facility]. She was found to have bilateral lower lobe infiltrates, was given intravenous vancomycin, and transferred to [facility] for dialysis needs. On arrival, she continues to complain of chest tightness. EKG shows sinus rhythm, ventricular rate of 89, right axis deviation, left posterior hemiblock, right bundle branch block, bifascicular block. The patient was emergently sent to dialysis unit for emergent dialysis. Chest x-ray showed bilateral infiltrates. Patient underwent dialysis with three kilograms removed with persistent chest tightness and shortness of breath. She is allergic to nitroglycerin and was started on intravenous heparin due to a troponin of 2.40, relative index 4.19, and total creatine kinase (CK) 148 which has increased within three hours to 4.88 troponin, relative index 4.02, MB fraction of 8.8, and total CK of 219. The patient's brain natriuretic peptide (BNP) is 28,354. Lactic acid was 3.3. The patient was given renally dosed Levaquin along with previously given vancomycin for presumed pneumonia. The patient had a white count of 14,000, afebrile at 97.5. Hospitalist admitted for bibasilar pneumonia along with congestive heart failure, fluid overload requiring emergency dialysis. The patient was subsequently found to have a [id number]-tfvwehqzo myocardial infarction and transferred to [facility] for coronary angiogram and possible stent placement. PAST MEDICAL HISTORY: 1. End-stage renal disease, on maintenance dialysis. 2. Hypertension. 3. Hyperlipidemia. 4. Diabetes. 5. Depression. 6. Coronary artery disease (CAD), status post myocardial infarction (NV). 7. History of transient ischemic attack (TIA). 8. Coronary artery bypass graft (CABG). 9. Basal cell carcinoma (CA) in the back and ear, status post resection. 10. Reflux disease. 11. Chronic obstructive pulmonary disease (COPD). 12. Influenza. 13. Prior pneumonia. 14. Anemic of chronic kidney disease. 15. Recurrent urinary tract infections. PAST SURGICAL HISTORY: 1. Coronary artery bypass graft (CABG). 2. Resection of basal cell carcinoma in the back and ear. 3. Tonsillectomy. 4. Appendectomy. 5. Arteriovenous (AV) fistula creation in the right arm. ALLERGIES: 1. CEFTRIAXONE causing hives and shortness of breath. 2. PENICILLIN, unknown. 3. CODEINE, hives and rash. 4. NITROGLYCERIN, unknown. 5. SULFA causing dizziness. HOME MEDICATIONS: - Advair 250/50 one puff inhaled twice a day as needed - clonazepam 0.25 twice a day as needed for anxiety - acetaminophen 1 gram three times a day - ProAir HFA two puffs inhaled every four hours as needed - Norvasc 10 daily - aspirin 81 daily - atorvastatin 40 at bedtime - calcitriol 0.25 mcg twice a day - Coreg 6.25 daily - clonidine 0.1 twice a day - Plavix 75 daily - Cymbalta 30 mg at bedtime - famotidine 20 twice a day - Lasix 160 daily - gabapentin 100 mg three times a day - Lantus insulin 20 units at bedtime - Lispro 6 units before meals - Nystatin three times a day as needed - Zofran 4 mg every six hours as needed - Veltassa 8.4 grams twice a week - MiraLAX 17 grams as needed daily - Velphoro 500 mg every meals - tramadol 50 mg twice a day as needed for pain - The patient received vancomycin 1 gram and Levaquin 250 every 48 hours on dialysis days. SOCIAL HISTORY: Denies any smoking, alcohol use, or polysubstance use. The patient is a full code. Healthcare proxy is her daughter, Tiffany Mckeon, phone number [phone]. 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 FAMILY HISTORY: Chronic kidney disease, congestive heart failure, and diabetes. REVIEW OF SYSTEMS: Per history of present illness (HPI), 12-point system otherwise negative. PHYSICAL EXAMINATION: Temperature 97.5, pulse 92, respiratory rate 20, blood pressure 155/65, 95% on room air. GENERAL: The patient appears her stated age, awake, alert, oriented, answering questions appropriately. No respiratory distress. No cyanosis. Pupils are equal, round, and reactive to light and accommodation. Extraocular muscles are intact. Normocephalic, atraumatic. Moist mucous membranes. Positive jugular venous distention (JVD). No thyromegaly. No cervical lymphadenopathy. HEART: S1, S2, sinus rhythm. Nondisplaced point of maximal impulse. Systolic ejection murmur 2/6 in the apex. LUNGS: Bibasilar rales. ABDOMEN: Soft, nontender, nondistended. Positive bowel sounds. No rebound or guarding. No hepatosplenomegaly. No abdominal bruits. EXTREMITIES: Right upper arm arteriovenous (AV) fistula patent. No clubbing or cyanosis. No pitting edema. LABORATORY DATA: White count 14.2, hemoglobin 11, hematocrit 35, platelet count of 252, 80% neutrophils, 8.9% lymphocytes, 9.9 monocytes. Sodium 139, potassium 5.6, chloride 102, bicarbonate 25, BUN 52, creatinine 6.82, glucose 201, lactic acid 3.3, C-reactive protein 2.44, calcium 9.2, total bilirubin 0.5, AST 25, ALT 18, alkaline phosphatase 56, sedimentation rate 65, 11:42 total CK 148, MB fraction 6.2, relative index 4.19, troponin I 2.4, BNP 28,354. Repeat cardiac marker at 1421: Total CK 219, MB fraction 8.8, relative index 4.02, troponin 4.88. 11/13/2019 respiratory panel negative. Blood culture pending. Urinalysis: Yellow appearance, hazy, 2+ protein, 3+ glucose, 1+ blood, negative nitrite, 1+ leukocyte esterase, 20 WBCs, 1+ bacteria. ASSESSMENT AND PLAN: This is an 79-year-old female with a history of coronary artery disease (CAD), myocardial infarction (NV), coronary artery bypass graft (CABG) in 2005, hypertension, diabetes, end-stage renal disease on maintenance hemodialysis, anemia of chronic disease, recurrent urinary tract infections (UTIs), depression, transient ischemic attack (TIA), reflux and chronic obstructive pulmonary disease (COPD) who presented to [facility] with acute onset of chest tightness accompanied with shortness of breath at 03:00 a.m. in the morning, was found to have a temperature of 100.7 without any weight gain but increase in lower extremity edema, found to have bilateral infiltrates, given IV vancomycin, Levaquin, and transferred to [facility] due to sepsis secondary to pneumonia with fluid overload, white count of 18,000. The patient underwent dialysis with three kilograms removed. Troponin doubled from 2.4 to 4.88 with ongoing complaints of chest heaviness and tightness. EKG showed sinus rhythm with right axis deviation, right bundle branch block, bifascicular block, left ventricular hypertrophy (LVH) versus ischemia, pulmonary pattern, ectopy was absent compared with 07/31/2019 EKG. The patient was agreeable to transfer to [place] for coronary angiogram. She was started on intravenous heparin. She had an adverse reaction to nitroglycerin which was not given. 1. Bibasilar pneumonia. The patient received vancomycin and renally dosed Levaquin at [facility] which was continued at [facility] to be given after dialysis. Sputum culture could not be obtained as the patient had a dry cough. Sedimentation rate, lactic acid, and C-reactive protein (CRP) were elevated. Procalcitonin was pending. Whit count was 14.2 with a temperature of 100.7. Respiratory panel was negative. Methicillin-resistant Staphylococcus aureus (MRSA) was pending. 2. Khq-PJ-foszvjiif myocardial infarction with a history of CAD, NV, and CABG in 2005 with no repeat stress test or coronary angiogram. The patient continues to complain of chest tightness and is being transferred to [facility] for coronary angiogram. She is able to give consent. She is currently on intravenous heparin with increase in troponin from 2.4 to 4.88. EKG was unchanged. The patient is continued on aspirin, Plavix, intravenous heparin, Coreg 6.25 daily. Allergic to nitroglycerin, on chronic Lipitor 40 daily as well. 3. Congestive heart failure, secondary to fluid overload in the setting of end-stage renal disease on maintenance dialysis. The patient has a history of diastolic heart failure. Previous echocardiogram was 01/27/2019, ejection fraction of 50% to 55% with normal systolic function. A 2D echocardiogram today was not completed prior to transfer. Grade 2 diastolic dysfunction with preserved systolic ejection fraction. The patient underwent dialysis with three kilograms removed. Admission weight of 79 kg, discharge weight of 76 kg. The patient continues to have chest tightness, most likely due to [id number] myocardial infarction. 4. Type 2 diabetes. She is continued on Levemir insulin, sliding scale, consistent-carbohydrate diet. 5. End-stage renal disease, on maintenance dialysis. The patient will need nephrology followup for maintenance dialysis. 6. Anemia of chronic disease. No acute indication for red blood cell (RBC) transfusion. Hemoccult stool is still pending. 7. History of recurrent urinary tract infections (UTIs) with abnormal urinalysis but no complaints of dysuria, urgency, frequency, fevers, chills, or flank pain. Urine culture is pending. The patient is currently on Levaquin for pneumonia and vancomycin for pneumonia. 8. Hyperkalemia, resolved with hemodialysis. DISPOSITION: Transfer to [facility], accepting physician Dr. Gilliam. REASON FOR TRANSFER: Upe-YQ-iinnvzzhx myocardial infarction for coronary vascular services.
[2019-11-13] MEDS ORDERED: CALCITRIOL 0.25 MCG CAP (S0169) PO SCH (21:00)
[2019-11-13] MEDS ORDERED: cloNIDine 0.1 MG TAB PO SCH (21:00)
[2019-11-13] MEDS ORDERED: LEVEMIR (INSULIN DETEMIR) 1 UNITS/0.01ML SC SCH (21:00)
[2019-11-13] MEDS ORDERED: DULoxetine 30 MG CAP (CYMBALTA) PO SCH (21:00)
[2019-11-13] MEDS ORDERED: ATORVASTATIN 20 MG TAB PO SCH (21:00)
--- NOTE | 2019-11-14 06:53 | CR ---
DATE OF CONSULTATION: 11/13/2019 REQUESTING PHYSICIAN: Dr. Maribell Jimenez CONSULTING PHYSICIAN: Dr. Brielle Tejada. REASON FOR CONSULTATION: Management of end-stage renal disease and fluid overload. CHIEF COMPLAINT: The patient was transferred from [place] emergency room because of progressive shortness of breath and possible pneumonia on the chest x-ray with history of renal failure. HISTORY OF PRESENT ILLNESS: Shanda Loco is an 79-year-old female with past medical history of end-stage renal disease on hemodialysis every Wednesday, Wednesday, Wednesday. Today is her regular day of dialysis. She has history of coronary artery disease status post coronary artery bypass grafting in 2005, history of transient ischemic attacks (TIAs) in the past. She woke up today morning from chest pressure and tightness in the chest with shortness of breath. The patient also reports that she was being treated for a urinary tract infection recently. Because of progressive shortness of breath, she presented to [place] emergency room. There, she was found to be fluid overloaded with congestive heart failure (CHF) pattern on the chest x-ray. The patient also reported a fever spike with a T-max of 100.7 when she was in the ER. She was empirically treated with IV vancomycin and because of her end-stage renal disease status the patient was discussed with myself with the ER physician from [place] and she was transferred to [facility] for further evaluation and treatment. I saw and evaluated the patient today morning at the bedside. Because of congestive heart failure, I had arranged hemodialysis to be done. The patient's chest x-ray was discussed by myself with radiology and they agreed that the patient was in congestive heart failure. A repeat x-ray to be done after dialysis was also ordered. PAST MEDICAL HISTORY: Past medical history of end-stage renal disease on hemodialysis, hypertension, hyperlipidemia, diabetes mellitus type 2, depression, coronary artery disease status post myocardial infarction (HI,) history of coronary artery bypass graft (CABG) in the past, history of TIA, history of basal cell carcinoma in the back and ears, gastroesophageal reflux disease, chronic obstructive pulmonary disease (COPD), history of pneumonia in the past, anemia in end-stage renal disease, recurrent urinary tract infections (UTIs). PAST SURGICAL HISTORY: Status post coronary artery bypass grafting in 2005, history of resection of basal cell carcinomas in the ear and back, status post tonsillectomy and appendectomy in the past, history of right arm AV fistula placement. ALLERGIES: She is allergic to CEFTRIAXONE, CODEINE, NITROGLYCERIN and SULFA. FAMILY HISTORY: No significant family history of end-stage renal disease requiring hemodialysis. SOCIAL HISTORY: The patient lives at home. she denies any smoking, illicit drug abuse or alcohol abuse. REVIEW OF SYSTEMS: Constitutional: She does not report fevers and chills. Eyes: She denies any blurry vision or double vision. ENT: She denies any dysphagia or odynophagia. Cardiovascular: She does report chest pressure and shortness of breath. Respiratory: She does report progressive shortness of breath. GI: She denies any nausea or vomiting. Genitourinary; She does report recent UTI. Musculoskeletal: She denies any muscle aches or pains. Hematology/Oncology: She denies any easy bleeding or bruising. Endocrine: She reports secondary hyperparathyroidism and diabetes mellitus type 2. All other review of systems is negative. PHYSICAL EXAMINATION: General: The patient is awake, alert, oriented x3, laying in the bed. Vital Signs: Temperature is 97.5 degrees Fahrenheit, blood pressure 155/65, pulse is 92, respiratory rate of 20, saturating 95% on room air. Head and Neck Exam: Extraocular muscles intact. Pupils equally round and reactive to light. Mucous membranes are moist. Neck is supple. There is significant elevation of jugular venous distention (JVD). Cardiovascular: S1, S2. Trace edema of the bilateral lower extremities. Respiratory: Decreased breath sounds bilaterally at the bases with expiratory crackles at the bases. Abdomen: Soft. Positive bowel sounds. Nontender. No organomegaly. Musculoskeletal: No clubbing or cyanosis. Pulses are 2+. COUNSELING CASE MANAGER: No focal deficit. Power is 5/5 in all extremities. LAB REVIEW: CBC showed a WBC of 14.2, hemoglobin 11.1, platelets of 252. PTT is 30.8. Urinalysis showed there was 2+ protein, 1+ blood, 1+ leukocyte esterase, and 20 WBCs. BMP showed sodium 139, potassium 5.6, chloride 102, bicarb 25, BUN 52, creatinine is 6.8, lactic acid 3.3, calcium 9.2, total bilirubin 0.5, AST 26, ALT 18, C-reactive protein 2.4, albumin 3. Initial troponin was 2.4. Pro-BNP was 28,354. Microbiology: Respiratory viral panel is negative. Urine culture and blood cultures are pending. IMAGING STUDIES: Chest x-ray was done which showed chronic appearing changes, superimposed bibasilar atelectasis, diffuse chronic interstitial changes. CURRENT INPATIENT MEDICATIONS: Include Levaquin 500 mg IV x1 dose, Tylenol p.r.n., amlodipine 10 mg daily, aspirin 81 mg daily, Lipitor 40 mg at bedtime, calcitriol 0.25 mcg twice a day, Coreg 6.25 mg by mouth daily, clonidine 0.1 mg by mouth twice a day, Plavix 75 mg by mouth daily, Pepcid 20 mg by mouth every other day, Lasix 60 mg by mouth daily, gabapentin 100 mg by mouth three times a day, Levemir 20 units subcu at bedtime, insulin Lispro sliding scale, Xopenex p.r.n., Zofran 4 mg by mouth every 6 hours p.r.n. nausea or vomiting, Veltassa twice a week 8.4 grams, Velphoro 500 mg by mouth with meals, tramadol 50 mg by mouth twice a day, vancomycin 1 gram IV every 48 hours ASSESSMENT: 79-year-old female with acute decompensated congestive heart failure, non ST elevation myocardial infarction (HI) with bibasilar pneumonia. PLAN: 1. Acute decompensated congestive heart failure. The patient was in fluid overload. She was emergently dialyzed and 3 liters of fluid was removed. 2. Non-ST elevation HI. The patient's troponin was trending up. She was started on heparin drip. She was already on aspirin, Plavix, statin and beta blockers. She has history of coronary artery disease and after dialysis the patient was transferred to [place]. 3. Hyperkalemia. The patient was dialyzed with a 2K bath and that should help improve her potassium level. 4. Lactic acidosis. It is secondary to combination of bibasilar pneumonia, non-ST elevation HI and congestive heart failure. Volume status was optimized with dialysis. NSTEMI management will be done in [place]. 5. Bibasilar pneumonia. The patient was given vancomycin in the emergency room at [place]. She was also given a dose of Levaquin at [facility]. 6. Diabetes mellitus type 2. The patient continues to be Levemir and insulin sliding scale. 7. End-stage renal disease. The patient's regular dialysis days are Wednesday, Wednesday, Wednesday. She was emergently dialyzed today because of congestive heart failure. Thank you for involving me in the care of this patient. The patient was emergently dialyzed and after dialysis she was transferred to [place] for coronary intervention.
[2019-11-14] MEDS ORDERED: ASPIRIN 81 MG ENTERIC TAB PO SCH (09:00)
[2019-11-14] MEDS ORDERED: CLOPIDOGREL 75 MG TAB PO SCH (09:00)
[2019-11-14] MEDS ORDERED: PATIROMER SORBITEX CALCIUM 8.4 GM POWDER PACKET (VELTASSA) PO SCH (09:00)
[2019-11-14] MEDS ORDERED: amLODIPine 10 MG TAB PO SCH (09:00)
[2019-11-14] MEDS ORDERED: CARVedilol 6.25 MG TAB PO SCH (09:00)
[2019-11-14] MEDS ORDERED: FUROSEMIDE 80 MG TAB PO SCH (09:00)
[2019-11-14] MEDS ORDERED: GABAPENTIN 100 MG CAP PO SCH (16:00)
[2019-11-15] MEDS ORDERED: FAMOTIDINE 20 MG TAB PO SCH (09:00)
[2019-11-15] MEDS ORDERED: LevoFLOXacin IV 250 MG in IV 1 EA IV SCH (16:00)
[2019-11-16 00:15] LABS: BODY FLUID CULTURE Not indicated. (.); LEGIONELLA ANTIGEN URINE Negative (Negative); ORGANISM ID Not indicated. (.); SPECIMEN SOURCE Urine (.); URINE STREP PNEUMONIAE ANTIGEN Negative (Negative)
== END 2019-11-13 19:24 | disposition short-term general hospital (02) | DRG 871 ==
LOC: M MSPAV 10:50 → M PCU 16:18
PROVIDERS: ADMIT Internal Medicine; ATTEND General Practice
PROC: 5A1D70Z Performance of Urinary Filtration, Intermittent, Less than 6 Hours Per Day (ICD-10-PCS; principal; 2019-11-13)
DX: A41.9 Sepsis, unspecified organism (principal); I21.4 Non-ST elevation (NSTEMI) myocardial infarction; J18.9 Pneumonia, unspecified organism; N18.6 End stage renal disease; I50.33 Acute on chronic diastolic (congestive) heart failure; I13.2 Hypertensive heart and chronic kidney disease with heart failure and with stage 5 chronic kidney disease, or end stage renal disease; I45.2 Bifascicular block; E87.2 Acidosis; J44.9 Chronic obstructive pulmonary disease, unspecified; K21.9 Gastro-esophageal reflux disease without esophagitis; Z86.73 Personal history of transient ischemic attack (TIA), and cerebral infarction without residual deficits; F32.9 Major depressive disorder, single episode, unspecified; E78.5 Hyperlipidemia, unspecified; E11.40 Type 2 diabetes mellitus with diabetic neuropathy, unspecified; E11.21 Type 2 diabetes mellitus with diabetic nephropathy; E87.5 Hyperkalemia; D63.1 Anemia in chronic kidney disease; Z79.899 Other long term (current) drug therapy; Z95.1 Presence of aortocoronary bypass graft; I25.10 Atherosclerotic heart disease of native coronary artery without angina pectoris; Z88.0 Allergy status to penicillin; Z88.2 Allergy status to sulfonamides; Z88.8 Allergy status to other drugs, medicaments and biological substances; Z88.5 Allergy status to narcotic agent; Z79.82 Long term (current) use of aspirin; Z87.891 Personal history of nicotine dependence; Z85.828 Personal history of other malignant neoplasm of skin

== ENCOUNTER 2020-02-16 17:02 | Emergency (ER) | payer MEDICARE, MEDICAID ==
[~2020-02-16] VITALS: Ht 167.6 cm; Wt 72.7 kg
[~2020-02-16 17:02] MED LIST changes: +LEVO250T12 PO; +VANC-7 IV; +VANC1INJ39 IV
[2020-02-16 18:07] LABS: BASO % 0.4 % (0.0-1.0); EOS # 0.2 10^3/uL (0.0-0.5); EOS % 1.9 % (0.0-3.0); HEMATOCRIT 31.9 % (36.0-47.0); HEMOGLOBIN 10.1 g/dl (12.0-15.5); LYMPH # 2.2 10^3/uL (1.5-5.0); LYMPH % 26.9 % (24.0-44.0); MEAN CORPUSCULAR HEMOGLOBIN 33.2 pg (27.0-33.0); MEAN CORPUSCULAR HGB CONC 31.7 g/dl (32.0-36.5); MEAN CORPUSCULAR VOLUME 104.9 fl (80.0-96.0); MONO # 1.1 10^3/uL (0.0-0.8); MONO % 13.3 % (0.0-5.0); NEUTROPHILS # 4.7 10^3/uL (1.5-8.5); PLATELET COUNT, AUTOMATED 306 10^3/uL (150-450); RED BLOOD COUNT 3.04 10^6/uL (4.00-5.40); WHITE BLOOD COUNT 8.2 10^3/uL (4.0-10.0)
[2020-02-16 18:47] LABS: ALT/SGPT 18 U/L (12-78); BILIRUBIN,DIRECT < 0.1 MG/DL (0.0-0.2); BILIRUBIN,TOTAL 0.5 MG/DL (0.2-1.0); BLOOD UREA NITROGEN 14 MG/DL (7-18); CARBON DIOXIDE LEVEL 33 MEQ/L (21-32); CHLORIDE LEVEL 95 MEQ/L (98-107); CK-MB VALUE MASS 1.6 NG/ML (<3.6); CPK CREATINE PHOSPHOKINASE 84 U/L (26-192); CREATININE FOR GFR 3.05 MG/DL (0.55-1.30); GLOMERULAR FILTRATION RATE 15.6 (>32); GLUCOSE, FASTING 159 MG/DL (70-100); LIPASE 257 U/L (73-393); POTASSIUM SERUM 4.1 MEQ/L (3.5-5.1); SODIUM LEVEL 135 MEQ/L (136-145); TOTAL PROTEIN 7.3 GM/DL (6.4-8.2); TROPONIN I 0.04 NG/ML (< 0.10)
--- NOTE | 2020-02-16 21:17 | ECGEPIP ---
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
[2020-02-16 21:46] VITALS: BP 132/54
--- NOTE | 2020-02-19 10:04 | REP ---
REASON FOR EXAM: Chest pain. COMPARISON: Multiple, the latest 11/13/2019. Preliminary report was given by Dr. Gann at the time the examination was performed. The technique utilized in obtaining the radiograph has magnified the cardiac silhouette and accentuated the interstitial markings. The cardiomediastinal silhouette is unchanged. There is cardiomegaly magnified by technique. There has been previous median sternotomy. There is interstitial fibrotic change, status quo. No acute patchy parenchymal opacities or pleural effusions have developed. There is no change in the osseous structures. IMPRESSION: Stable-appearing chronic changes without plain radiographic evidence of acute cardiopulmonary disease. Electronically Signed by Christopher Cerrato DO 02/19/2020 11:53 A
== END 2020-02-17 01:08 | disposition home or self-care (01) ==
LOC: M ED 17:02 → EDBD 17:02 → M ED 02-17 01:08
DX: R42 Dizziness and giddiness (principal); I45.10 Unspecified right bundle-branch block; I10 Essential (primary) hypertension; E11.9 Type 2 diabetes mellitus without complications; J44.9 Chronic obstructive pulmonary disease, unspecified; N18.6 End stage renal disease; E78.5 Hyperlipidemia, unspecified; I25.10 Atherosclerotic heart disease of native coronary artery without angina pectoris; D63.8 Anemia in other chronic diseases classified elsewhere; F33.9 Major depressive disorder, recurrent, unspecified; Z95.1 Presence of aortocoronary bypass graft; Z99.2 Dependence on renal dialysis; Z79.899 Other long term (current) drug therapy; Z79.82 Long term (current) use of aspirin; Z79.4 Long term (current) use of insulin; Z79.01 Long term (current) use of anticoagulants; Z88.1 Allergy status to other antibiotic agents; Z88.2 Allergy status to sulfonamides; Z88.5 Allergy status to narcotic agent; Z88.8 Allergy status to other drugs, medicaments and biological substances

== ENCOUNTER → 2020-03-27 | Outpatient (REF) | payer MEDICARE, MEDICAID ==
[~2020-03-27] MED LIST changes: -AMLO10TA5 PO; +AMLO1TAB25 PO; +BACT800T5 PO; +NITR0.4S14 SL; +VITA500045 PO
== END ==
LOC: M LAB REF 16:38
PROVIDERS: ATTEND Internal Medicine Nephrology
DX: N18.6 End stage renal disease (principal); N39.0 Urinary tract infection, site not specified; E11.22 Type 2 diabetes mellitus with diabetic chronic kidney disease

== ENCOUNTER 2020-07-24 16:17 | Emergency (ER) | payer MEDICARE, MEDICAID ==
[~2020-07-24 16:17] MED LIST changes: -BACT800T5 PO; -NITR0.4S14 SL; -VITA500045 PO
[2020-07-24] MEDS ORDERED: ASPIRIN 81 MG CHEW TABLET PO ONE (17:00)
[2020-07-24] MEDS ORDERED: BACT800T5 PO (17:02)
[2020-07-24] MEDS ORDERED: NITR0.4S14 SL (17:02)
[2020-07-24] MEDS ORDERED: ZOFR4TAB16 PO (17:02)
[2020-07-24] MEDS ORDERED: VITA500045 PO (17:02)
[2020-07-24] MEDS ORDERED: HYDR-3910 PO (17:02)
--- NOTE | 2020-07-24 17:41 | REPVR ---
PROCEDURE INFORMATION: Exam: XR Chest, 1 View Exam date and time: 07/24/2020 4:59 PM Age: 80 years old Clinical indication: Chest pain TECHNIQUE: Imaging protocol: XR of the chest Views: 1 view. COMPARISON: CR PORTABLE CHEST X-RAY 02/16/2020 5:39 PM FINDINGS: Lungs: Comparison to the previous chest radiograph from 02/16/2020 shows a slight interval increase in density in the pulmonary interstitium of both lower lungs, suggestive of possible interstitial pulmonary edema and CHF. Pleural space: Unremarkable. No pleural effusion. No pneumothorax. Heart/Mediastinum: Cardiomegaly is present with mild pulmonary venous congestion. Bones/joints: The midline sternotomy wires are intact. IMPRESSION: 1. Cardiomegaly is present with mild pulmonary venous congestion. 2. Comparison to the previous chest radiograph from 02/16/2020 shows a slight interval increase in density in the pulmonary interstitium of both lower lungs, suggestive of possible mild interstitial pulmonary edema and CHF. Electronically signed by: Lalo Fernandez On 07/24/2020 17:41:52 PM
[2020-07-24 19:27] LABS: BASO % 0.5 % (0.0-1.0); EOS # 0.2 10^3/uL (0.0-0.5); HEMATOCRIT 39.3 % (36.0-47.0); LYMPH # 1.7 10^3/uL (1.5-5.0); LYMPH % 22.8 % (24.0-44.0); MEAN CORPUSCULAR HEMOGLOBIN 34.2 pg (27.0-33.0); MEAN CORPUSCULAR HGB CONC 30.5 g/dl (32.0-36.5); MONO % 13.6 % (0.0-5.0); NEUTROPHILS # 4.6 10^3/uL (1.5-8.5); NEUTROPHILS % 60.8 % (36.0-66.0); PLATELET COUNT, AUTOMATED 261 10^3/uL (150-450); RED BLOOD COUNT 3.51 10^6/uL (4.00-5.40); WHITE BLOOD COUNT 7.6 10^3/uL (4.0-10.0)
[2020-07-24 19:39] LABS: INR 0.91; PROTHROMBIN TIME 12.4 SECONDS (12.5-14.3)
[2020-07-24 19:51] LABS: ALBUMIN 3.2 GM/DL (3.2-5.2); BILIRUBIN,DIRECT 0.1 MG/DL (0.0-0.2); BILIRUBIN,TOTAL 0.5 MG/DL (0.2-1.0); CALCIUM LEVEL 9.2 MG/DL (8.8-10.2); CK-MB VALUE MASS 2.3 NG/ML (<3.6); CREATININE FOR GFR 3.55 MG/DL (0.55-1.30); GLOMERULAR FILTRATION RATE 13.1 (>32); MB/CK RELATIVE INDEX 3.38 (< OR =4); POTASSIUM SERUM 4.4 MEQ/L (3.5-5.1); TROPONIN I 0.04 NG/ML (< 0.10)
[2020-07-24 22:16] LABS: CK-MB VALUE MASS 2.2 NG/ML (<3.6); MB/CK RELATIVE INDEX 2.97 (< OR =4); TROPONIN I 0.05 NG/ML (< 0.10)
[2020-07-24 22:52] VITALS: BP 186/79
--- NOTE | 2020-07-24 22:56 | ECGEPIP ---
[facility] - ED Test Date: 2020-07-24 Pat Name: DEION JADE Department: Room: - Gender: Female Apron Man: JOSÉ MANUEL : 1940 Requested By: NATHALY FERNANDES Order Number: [id number] Reading MD: Waldemar Shepard Measurements Intervals [place] Rate: 67 P: 44 RI: 164 QRS: 90 QRSD: 146 T: -2 QT: 466 QTc: 495 Interpretive Statements SINUS RHYTHM WITH OCCASIONAL SUPRAVENTRICULAR PREMATURE COMPLEXES RIGHT BUNDLE BRANCH BLOCK POSSIBLE LEFT VENTRICULAR HYPERTROPHY Prolonged QTc interval Similar to tracing done 02-16-20 Electronically Signed on 07-24-2020 22:56:21 EDT by Waldemar Shepard
--- NOTE | 2020-07-24 23:10 | ECGEPIP ---
[facility] - ED Test Date: 2020-07-24 Pat Name: DEION JADE Department: Room: - Gender: Female Attending Physician: melissa GARIBAYB: 1940 Requested By: NATHALY FERNANDES Order Number: [id number] Reading MD: Waldemar Shepard Measurements Intervals [place] Rate: 72 P: 53 SD: 161 QRS: 98 QRSD: 140 T: 0 QT: 442 QTc: 485 Interpretive Statements SINUS RHYTHM RIGHT BUNDLE BRANCH BLOCK Possible lvh Prolonged QTc interval Similar to tracing done 16:42 on the same date Electronically Signed on 07-24-2020 23:09:43 EDT by Waldemar Shepard
--- NOTE | 2020-07-27 13:06 | ED PDOC ---
Post-Departure Follow-Up zehra matthews faxed formal report of cxr for fu williamg Rasheed Adhikari MD Jul 27, 2020 13:06
== END 2020-07-24 23:09 | disposition home or self-care (01) ==
LOC: M ED 16:17 → EDBD 16:17 → M ED 23:09
DX: R07.89 Other chest pain (principal); I45.10 Unspecified right bundle-branch block; I51.9 Heart disease, unspecified; E11.9 Type 2 diabetes mellitus without complications; I10 Essential (primary) hypertension; E78.5 Hyperlipidemia, unspecified; N18.6 End stage renal disease; Z95.5 Presence of coronary angioplasty implant and graft; Z87.891 Personal history of nicotine dependence; I51.7 Cardiomegaly; Z79.82 Long term (current) use of aspirin; Z79.4 Long term (current) use of insulin; Z79.899 Other long term (current) drug therapy; Z88.0 Allergy status to penicillin; Z88.5 Allergy status to narcotic agent; Z88.1 Allergy status to other antibiotic agents

== ENCOUNTER 2020-09-09 12:53 | Inpatient (IN) | payer MEDICARE, MEDICAID ==
[~2020-09-09] VITALS: Ht 167.6 cm; Wt 70.3 kg
[~2020-09-09 12:53] MED LIST changes: +BACT800T5 PO; +NITR0.4S14 SL; +VITA500045 PO
--- NOTE | 2020-09-09 14:08 | REP ---
INDICATION: SEPSIS/SHOCK. COMPARISON: Comparison chest x-ray July 24 2020.. TECHNIQUE: Semi-erect AP portable radiograph. FINDINGS: Median sternotomy wires are again noted. There is a vascular stent again noted in the right subclavicular soft tissues. Mild to moderate cardiac enlargement is again observed unchanged. Interstitial fibrosis pattern persists in the lung waldrop. Hazy opacity over the lateral chest gagnon bilaterally is felt to be due primarily to overlying breast tissue. There are old healed rib fractures on the right. No definite infiltrate. There is no evidence of pleural effusion. IMPRESSION: Moderate cardiomegaly. Diffuse interstitial fibrosis pattern. Vascular congestion unchanged. Right-sided rib fractures with some adjacent pleural thickening. No definite infiltrate <Electronically signed by Nick Alexander > 09/09/20 [id number]
[2020-09-09 15:08] LABS: BASO % 0.3 % (0.0-1.0); EOS # 0.1 10^3/uL (0.0-0.5); EOS % 1.4 % (0.0-3.0); HEMATOCRIT 38.6 % (36.0-47.0); HEMOGLOBIN 11.9 g/dl (12.0-15.5); LYMPH # 2.2 10^3/uL (1.5-5.0); LYMPH % 22.3 % (24.0-44.0); MEAN CORPUSCULAR HEMOGLOBIN 35.3 pg (27.0-33.0); MEAN CORPUSCULAR HGB CONC 30.8 g/dl (32.0-36.5); MONO # 1.1 10^3/uL (0.0-0.8); MONO % 11.2 % (0.0-5.0); NEUTROPHILS # 6.2 10^3/uL (1.5-8.5); NEUTROPHILS % 64.3 % (36.0-66.0); PLATELET COUNT, AUTOMATED 271 10^3/uL (150-450); RED BLOOD COUNT 3.37 10^6/uL (4.00-5.40); WHITE BLOOD COUNT 9.7 10^3/uL (4.0-10.0)
[2020-09-09 15:11] LABS: MEAN CORPUSCULAR VOLUME 114.5 fl (80.0-96.0)
[2020-09-09 15:31] LABS: PLATELET ESTIMATE NORMAL (NORMAL)
[2020-09-09 15:39] LABS: ALBUMIN 3.3 GM/DL (3.2-5.2); ALT/SGPT 26 U/L (12-78); BILIRUBIN,DIRECT < 0.1 MG/DL (0.0-0.2); BILIRUBIN,TOTAL 0.5 MG/DL (0.2-1.0); BLOOD UREA NITROGEN 57 MG/DL (7-18); C REACTIVE PROTEIN QUANTITATIV 1.82 MG/DL (0.00-0.30); CARBON DIOXIDE LEVEL 20 MEQ/L (21-32); CHLORIDE LEVEL 103 MEQ/L (98-107); CK-MB VALUE MASS 2.1 NG/ML (<3.6); CPK CREATINE PHOSPHOKINASE 139 U/L (26-192); CREATININE FOR GFR 7.92 MG/DL (0.55-1.30); GLOMERULAR FILTRATION RATE 5.2 (>32); GLUCOSE, FASTING 194 MG/DL (70-100); MAGNESIUM LEVEL 1.6 MG/DL (1.8-2.4); MB/CK RELATIVE INDEX 1.51 (< OR =4); NT-PRO BNP 51660 PG/ML (<450); POTASSIUM SERUM 5.1 MEQ/L (3.5-5.1); SODIUM LEVEL 133 MEQ/L (136-145); TOTAL PROTEIN 8.2 GM/DL (6.4-8.2)
[2020-09-09] MEDS ORDERED: SULF400T14 PO (17:48)
[2020-09-09] MEDS ORDERED: DEXTROSE 50% 50 ML SYRINGE IV PRN (18:00)
[2020-09-09] MEDS ORDERED: GLUCOSE 4GM CHEW TABLET PO PRN (18:00)
[2020-09-09] MEDS ORDERED: GLUCAGON INJ 1MG VIAL SC PRN (18:00)
[2020-09-09] MEDS ORDERED: ACETAMINOPHEN TAB 650MG DOSE (2X325MG) PO PRN (18:00)
[2020-09-09] MEDS ORDERED: LABETALOL 100MG/20ML VIAL IV PRN (18:00)
--- NOTE | 2020-09-09 18:01 | HPEPDOC ---
General Date of Admission 09/09/20 Date of Service: Sep 09, 2020 Chief Complaint The patient is a 80-year-old female admitted with a reason for visit of Fever/Groin Pain/Weakness. Source: Patient Exam Limitations: Clinical conditions Timing/Duration: Day(s) Severity: Moderate History of Present Illness Patient is 80 years old female with past history of end-stage renal disease on hemodialysis every Wednesday, Wednesday, Wednesday. She has history of coronary artery disease status post coronary artery bypass grafting in 2005, history of transient ischemic attacks (TIAs) in the past. Today is her regular day of dialysis. Before dialysis patient was found to have fever of 100.1. Also patient stated that for past 3-4 days she has been having multiple episodes of diarrhea. Patient recently received treatment with antibiotics for UTI. In ER patient was found to have no leukocytosis, troponin 0.1, hemoglobin 11.9, potassium of 5.1, creatinine 7.9, BNP over 50,000. Vital signs significant for hypertensive u rgency with systolic blood pressure of [address] Kelley, she recommended dialysis today Home Medications Scheduled Aspirin (Aspirin EC) 81 Mg Tab, 81 MG PO DAILY, (Reported) Atorvastatin Calcium (Atorvastatin Calcium) 40 Mg Tablet, 40 MG PO QHS, (Reported) Carvedilol (Coreg) 6.25 Mg Tab, 6.25 MG PO DAILY, (Reported) Clopidogrel Bisulfate (Plavix) 75 Mg Tab, 75 MG PO DAILY, (Reported) Duloxetine Hcl (Cymbalta) 30 Mg Cap, 30 MG PO QHS, (Reported) Ergocalciferol (Vitamin D2) (Vitamin D2) 1,250 Mcg Capsule, 1,250 MCG PO 1XWK, (Reported) Famotidine (Famotidine) 20 Mg Tablet, 20 MG PO BID, (Reported) Furosemide (Furosemide) 80 Mg Tablet, 160 MG PO DAILY, (Reported) Gabapentin (Gabapentin) 100 Mg Capsule, 100 MG PO TID, (Reported) Hydralazine HCl (Hydralazine HCl) 25 Mg Tablet, 25 MG PO BID, (Reported) Insulin Glargine (Lantus) 1 Units/0.01 Ml Susp, 20 UNITS SC QHS, (Reported) Insulin Lispro (Humalog Kwikpen U-100) 100 Unit/Ml Inj, 6 UNITS SC AC, (Reported) Lidocaine/Prilocaine (Lidocaine-Prilocaine Cream) 2.5%/2.5% Cream..g., 1 DOSE TOP 3XW, (Reported) 1 TO 2 HOURS BEFORE DIALYSIS ON WEDNESDAY, WEDNESDAY AND WEDNESDAY Nitroglycerin (Nitroglycerin) 0.4 Mg Tab.subl, 1 TAB SL ASDIRECTED for chest pain, (Reported) 1st sign of attack; may repeat every 5 mins; if pain persists after 3 in 15 min, medical attention is recommended Patiromer Calcium Sorbitex (Veltassa) 8.4 Gm Powd.pack, 8.4 GM PO 2XW, (Reported) SUN & TUES Sucroferric Oxyhydroxide (Velphoro) 500 Mg Tab.chew, 500 MG PO WM, (Reported) Sulfamethoxazole/Trimethoprim (Sulfamethoxazole-Tmp Ss Tablet) 1 Each Tablet, 1 TAB PO DAILY, (Reported) Scheduled PRN Acetaminophen (Tylenol Extra Strength) 500 Mg Tablet, 1,000 MG PO TID PRN for PAIN / FEVER, (Reported) Albuterol Sulfate (Proair Hfa) 8.5 Gm Hfa.aer.ad, 2 PUFF INH Q4H PRN for SOB/WHEEZING, (Reported) Ondansetron HCl (Zofran) 4 Mg Tablet, 1 TAB PO Q4HP PRN for NAUSEA, (Reported) Polyethylene Glycol 3350 (Miralax) 119 Gm Powder, 17 GM PO DAILY PRN for CONSTIP ATION, (Reported) Tramadol HCl (Tramadol HCl) 50 Mg Tablet, 50 MG PO BID PRN for PAIN, (Reported) Allergies Coded Allergies: ceftriaxone (Verified Allergy, Severe, SOB, hives,, 01/25/19) codeine (Verified Allergy, Intermediate, hives/ rash, 01/25/19) Penicillins (Verified Allergy, Unknown, 07/24/20) Past Medical History Medical History 1. End-stage renal disease, on maintenance dialysis. 2. Hypertension. 3. Hyperlipidemia. 4. Diabetes. 5. Depression. 6. Coronary artery disease (CAD), status post myocardial infarction ([place]). 7. History of transient ischemic attack (TIA). 8. Coronary artery bypass graft (CABG). 9. Basal cell carcinoma (CA) in the back and ear, status post resection. 10. Reflux disease. 11. Chronic obstructive pulmonary disease (COPD). 12. Influenza. 13. Prior pneumonia. 14. Anemic of chronic kidney disease. 15. Recurrent urinary tract infections. Surgical History 1. Coronary artery bypass graft (CABG). 2. Resection of basal cell carcinoma in the back and ear. 3. Tonsillectomy. 4. Appendectomy. 5. Arteriovenous (AV) fistula creation in the right arm. Family History Chronic kidney disease, congestive heart failure, and diabetes. Social History * Smoker: Denies Alcohol: Denies Drugs: denies A-FIB/CHADSVASC A-FIB History Current/History of A-Fib/PAF?: No Current PO Anticoag Therapy: No Review of Systems Constitutional: Reports: Fever, Malaise; Denies: Chills Eyes: Denies: Pain ENT: Denies: Head Aches Skin: Denies: Rash, Lesions Pulmonary: Reports: Dyspnea Cardiovascular: Reports: Orthopnea; Denies: Chest Pain Gastrointestinal: Reports: Diarrhea; Denies: Nausea, Vomiting Genitourinary: Denies: Retention Hematologic: Denies: Bruising, Bleeding Excessively Endocrine: Denies: Polydipsia Neurological: Denies: Weakness Psych: Reports: Mood Normal Physical Examination General Exam: Positive: Alert, Cooperative Eye Exam: Positive: PERRLA ENT Exam: Positive: Atraumatic Neck Exam: Positive: Supple, JVD Chest Exam: Positive: Wheezing, Diminished Heart Exam: Positive: Tachycardic Telemetry: Positive: Sinus Abdomen Exam: Positive: BS Hyperactive Extremity Exam: Negative: Cyanosis, Edema Skin Exam: Positive: Nl turgor and temperature Neuro Exam: Positive: Cranial Nerves 3-12 NL Psych Exam: Positive: Mental status NL Vital Signs Vital Signs Date Time Temp Pulse Resp B/P (MAP) Pulse Ox O2 Delivery O2 Flow Rate FiO2 09/09/20 16:16 98.9 101 24 186/93 (124) 96 Nasal Cannula 2.0 Laboratory Data Labs 24H Laboratory Tests 2 09/09/20 14:44: Immature Granulocyte % (Auto) 0.5, Neutrophils (%) (Auto) 64.3, Lymphocytes (%) (Auto) 22.3L, Monocytes (%) (Auto) 11.2H, Eosinophils (%) (Auto) 1.4, Basophils (%) (Auto) 0.3, Neutrophils # (Auto) 6.2, Lymphocytes # (Auto) 2.2, Monocytes # (Auto) 1.1H, Eosinophils # (Auto) 0.1, Basophils # (Auto) 0.0, Nucleated Red Blood Cells % (auto) 0.0, Platelet Estimate NORMAL, Macrocytosis 2+, Anion Gap 10, Glomerular Filtration Rate 5.2L, Lactic Acid Level 1.8, Calcium Level 9.0, Phosphorus Level 6.0H, Magnesium Level 1.6L, Total Bilirubin 0.5, Direct Bilirubin < 0.1, Aspartate Amino Transf (AST/SGOT) 30, Alanine Aminotransferase (ALT/SGPT) 26, Alkaline Phosphatase 136H, Total Creatine Kinase 139, Creatine Kinase MB 2.1, Creatine Kinase MB Relative Index 1.51, Troponin I 0.10, C- Reactive Protein, Quantitative 1.82H, VH-Heo-W-Type Natriuretic Peptide 73060U, Total Protein 8.2, Albumin 3.3, Albumin/Globulin Ratio 0.7L, Coronavirus (COVID-19)(PCR) NEGATIVE, Influenza Type A (RT-PCR) NEGATIVE, Influenza Type B (RT-PCR) NEGATIVE, Respiratory Syncytial Virus (PCR) NEGATIVE CBC/BMP Laboratory Tests 09/09/20 14:44 Microbiology Microbiology 09/09/20 Blood Culture, Received Pending Assessment/Plan Patient is 80 years old female with past history of end-stage renal disease on hemodialysis every Wednesday, Wednesday, Wednesday. She has history of coronary artery disease status post coronary artery bypass grafting in 2005, history of transient ischemic attacks (TIAs) in the past. Today is her regular day of dialysis. Before dialysis patient was found to have fever of 100.1. Also patient stated that for past 3-4 days she has been having multiple episodes of diarrhea. Patient recently received treatment with antibiotics for UTI. In ER patient was found to have no leukocytosis, hemoglobin 11.9, potassium of 5.1, creatinine 7.9, BNP over 50,000. Vital signs significant for hypertensive urgency with systolic blood pressure of 180. I talked to Dr. Kelley, she recommended dialysis today Problems (1) ESRD on dialysis Status: Acute Problem Text: Patient volume overloaded Dialysis will be done today Nephrology team follows her (2) HTN (hypertension) Status: Chronic Problem Text: Patient developed hypertensive urgency Secondary to volume Dialysis for volume correction Labetalol IV (3) Physical deconditioning Status: Chronic Problem Text: PT/OT (4) Diabetes Status: Chronic Problem Text: Diabetes diet Insulin sliding scale Detemir 10 units twice a day (5) CAD (coronary artery disease) Status: Chronic Problem Text: Continue home cardioprotective medication (6) Diarrhea Status: Acute Problem Text: Patient recently received antibiotics for UTI C. difficile test ordered (7) Hypercholesteremia Status: Chronic Problem Text: Continue statin (8) Acute CHF Status: Acute Problem Text: Diastolic CHF Secondary to volume overload Previous echocardiogram was 01/27/2019, ejection fraction of 50% to 55% with normal systolic function BNP over 50,000, patient has orthopnea and plus JVD Dialysis (9) Elevated troponin Status: Acute Problem Text: Most likely secondary to demand ischemia due to severe volume overload Telemetry EKG negative for acute ischemic changes Continue to monitor troponin Plan / VTE VTE Prophylaxis Ordered?: Yes SUSANNA HOWELL DO Sep 09, 2020 18:01
[2020-09-09] MEDS ORDERED: SODIUM CHLORIDE 0.9% 1000ML IV PRN (18:30)
[2020-09-09] MEDS ORDERED: LIDOCAINE 1% SDV 5ML VIAL SC PRN (18:30)
[2020-09-09] MEDS ORDERED: AMLO1TAB25 PO (18:52)
[2020-09-09] MEDS ORDERED: D31000TA2 PO (18:52)
[2020-09-09] MEDS ORDERED: RENV2TAB PO (18:52)
[2020-09-09] MEDS ORDERED: COMMENTS (18:54)
[2020-09-09] MEDS: HumaLOG INSULIN (NovoLOG) PER UNIT SC SCH (21:00)
[2020-09-09 21:47] VITALS: BP 194/86
[2020-09-09] MEDS: HEPARIN SOD (PORCINE) 5000UNITS/ML 1ML VIAL/SYRINGE SC SCH (22:27)
[2020-09-09] MEDS: LEVEMIR (INSULIN DETEMIR) 1 UNITS/0.01ML SC SCH (23:01)
[2020-09-10] VITALS: BP 130/54
--- NOTE | 2020-09-10 00:42 | ECGEPIP ---
[facility] - ED Test Date: 2020-09-09 Pat Name: DEION JADE Department: Room: - Gender: Female Family Caseworker: lr : 1940 Requested By: MARY CARMEN WARREN Order Number: [id number] Reading MD: Cody Melchor Measurements Intervals [place] Rate: 102 P: 40 FL: 183 QRS: 100 QRSD: 147 T: -41 QT: 377 QTc: 491 Interpretive Statements SINUS TACHYCARDIA POSSIBLE LEFT ATRIAL ENLARGEMENT RIGHT BUNDLE BRANCH BLOCK SIMILAR TO 07/24/20 Electronically Signed on 09-10-2020 0:42:33 EST by Cody Melchor
[2020-09-10 04:00] VITALS: BP 141/57
[2020-09-10 05:58] LABS: HEMATOCRIT 33.6 % (36.0-47.0); HEMOGLOBIN 10.8 g/dl (12.0-15.5); MEAN CORPUSCULAR HEMOGLOBIN 35.4 pg (27.0-33.0); MEAN CORPUSCULAR HGB CONC 32.1 g/dl (32.0-36.5); MEAN CORPUSCULAR VOLUME 110.2 fl (80.0-96.0); PLATELET COUNT, AUTOMATED 252 10^3/uL (150-450); RED BLOOD COUNT 3.05 10^6/uL (4.00-5.40); WHITE BLOOD COUNT 8.3 10^3/uL (4.0-10.0)
[2020-09-10 06:24] LABS: BILIRUBIN,TOTAL 0.5 MG/DL (0.2-1.0); CALCIUM LEVEL 8.6 MG/DL (8.8-10.2); CREATININE FOR GFR 5.76 MG/DL (0.55-1.30); GLOMERULAR FILTRATION RATE 7.5 (>32); POTASSIUM SERUM 4.1 MEQ/L (3.5-5.1); TOTAL PROTEIN 6.5 GM/DL (6.4-8.2)
[2020-09-10] MEDS: HumaLOG INSULIN (NovoLOG) PER UNIT SC SCH ×4 (07:30→17:59)
[2020-09-10 08:00] VITALS: BP 148/78
[2020-09-10] MEDS: HEPARIN SOD (PORCINE) 5000UNITS/ML 1ML VIAL/SYRINGE SC SCH ×2 (08:47→21:02)
[2020-09-10] MEDS: LEVEMIR (INSULIN DETEMIR) 1 UNITS/0.01ML SC SCH ×2 (08:48→21:02)
[2020-09-10] MEDS: OXYMETAZOLINE 0.05% NASAL SPRAY (AFRIN) SCH ×2 (09:00→21:34)
[2020-09-10 12:00] VITALS: BP 146/65
--- NOTE | 2020-09-10 13:28 | IPNPDOC ---
Text Note Date of Service The patient was seen on 09/10/20. NOTE Subjective: Patient received dialysis yesterday, her breathing improved. She complains of nasal congestion. Objective: GENERAL APPEARANCE: NAD HEENT: no scleral icterus, plus JVD, EOMI CARDIOVASCULAR: S1S2 LUNGS: Diminished lung sounds bilaterally with mild crackles at the base ABDOMEN: soft & not tender w palpitation MUSCULOSKELETAL: +2 nonpitting edema INTEGUMENT: no generalized pallor NEUROLOGICAL: cranial nerve function from 2-12 intact intact, follows commands, speech not dysarthric Assessment/Plan Patient is 80 years old female with past history of end-stage renal disease on hemodialysis every Wednesday, Wednesday, Wednesday. She has history of coronary artery disease status post coronary artery bypass grafting in 2005, history of transient ischemic attacks (TIAs) in the past. Today is her regular day of dialysis. Before dialysis patient was found to have fever of 100.1. Also patient stated that for past 3-4 days she has been having multiple episodes of diarrhea. Patient recently received treatment with antibiotics for UTI. In ER patient was found to have no leukocytosis, hemoglobin 11.9, potassium of 5.1, creatinine 7.9, BNP over 50,000. Vital signs significant for hypertensive urgency with systolic blood pressure of 180. I talked to Dr. Kelley, she recommended dialysis today Problems (1) ESRD on dialysis Patient received dialysis yesterday Nephrology team follows her (2) HTN (hypertension)/ hypertensive urgency Patient developed hypertensive urgency. Improved after dialysis, under control today Secondary to volume overload Labetalol IV (3) Physical deconditioning Await PT/OT evaluation (4) Diabetes Diabetes diet Insulin sliding scale Detemir 10 units twice a day (5) CAD (coronary artery disease) Continue home cardioprotective medication (6) Diarrhea Patient recently received antibiotics for UTI C. difficile test ordered (7) Hypercholesteremia Continue statin (8) Acute CHF Diastolic CHF Secondary to volume overload Previous echocardiogram was 01/27/2019, ejection fraction of 50% to 55% with normal systolic function BNP over 50,000, patient has orthopnea and plus JVD Dialysis (9) Elevated troponin Most likely secondary to demand ischemia due to severe volume overload Telemetry EKG negative for acute ischemic changes Second troponin elevated to 0.17, 3d troponin ordered Sinus rhythm on telemetry, no any acute events overnight. Patient denies any chest pain or palpitations VS,Fishbone, I+O VS, Fishbone, I+O Laboratory Tests 09/09/20 14:44 09/10/20 05:15 Vital Signs Date Time Temp Pulse Resp B/P (MAP) Pulse Ox O2 Delivery O2 Flow Rate FiO2 09/10/20 12:00 97.9 68 18 146/65 (92) 96 Room Air 09/10/20 08:00 2.0 I&O- Last 24 Hours up to 6 AM 09/10/20 06:00 Intake Total 0 ml Output Total 2500 ml Balance -2500 ml SUSANNA HOWELL DO Sep 10, 2020 13:28
[2020-09-10 16:00] VITALS: BP 144/74
[2020-09-10] MEDS ORDERED: ONDANSETRON 4 MG TAB PO PRN (16:15)
[2020-09-10] MEDS ORDERED: NITROGLYCERIN 0.4 MG SUBL TABLET SL SCH (16:15)
[2020-09-10] MEDS ORDERED: traMADol 50 MG TAB PO PRN (16:15)
[2020-09-10] MEDS ORDERED: MIRALAX *UNIT DOSE* 17GM PACKET PO PRN (16:15)
[2020-09-10] MEDS ORDERED: ATORVASTATIN 20 MG TAB PO SCH ×2 (16:30→21:00)
[2020-09-10] MEDS: GABAPENTIN 100 MG CAP PO SCH ×2 (16:44→21:04)
[2020-09-10] MEDS: (RENVELA) SEVELAMER **CARBONate** 800 MG TAB PO SCH ×2 (16:45→21:03)
[2020-09-10] MEDS: FUROSEMIDE 80 MG TAB PO SCH (16:45)
[2020-09-10] MEDS: FAMOTIDINE 20 MG TAB PO SCH (16:45)
[2020-09-10] MEDS ORDERED: PILL CUTTER 1 EACH XX PRN (16:45)
[2020-09-10] MEDS: CARVedilol 6.25 MG TAB PO SCH (16:46)
[2020-09-10] MEDS: SUCROFERRIC OXYHYDROXIDE 500MG CHEW TAB (VELPHORO) PO SCH (17:59)
[2020-09-10 20:00] VITALS: BP 130/58
[2020-09-10] MEDS ORDERED: DULoxetine 30 MG CAP (CYMBALTA) PO SCH (21:00)
[2020-09-10] MEDS: **hydrALAZINE HCL** 25 MG TAB PO SCH (21:04)
--- NOTE | 2020-09-10 21:08 | CR ---
CONSULTATION REQUESTING PHYSICIAN: Pratik Dangelo DO REASON FOR CONSULTATION: Management of end-stage renal disease and fluid overload. CHIEF COMPLAINT: Low-grade fever, diarrhea and missed dialysis along with shortness of breath and hypertension. HISTORY OF PRESENT ILLNESS: Shanda Loco is an 79-year-old female with past medical history of end-stage renal disease on hemodialysis on Wednesday, Wednesday, Wednesday schedule via right arm AV fistula. She has a history also of coronary artery disease; status post CABG in 2005, history of TIA in the past and other comorbid conditions mentioned below. Patient reports that she developed diarrhea over the weekend. She went for her outpatient hemodialysis treatment on Wednesday, however prior to the treatment being started, she was found to have a temperature of 100.4 and due to COVID precautions, she was not dialyzed in the outpatient unit but was sent to the Emergency Room for further evaluation. In the Emergency Room, she tested negative for COVID-19, however, was found to be significantly hypertensive with systolic blood pressure as high as the 190's. I had arranged for the patient to be dialyzed as an outpatient on Wednesday, September 10, however hospitalist service contacted me and they felt that the patient required hospitalization for her hypertension and requested that she be dialyzed on the same evening that she was admitted. Hence, we arranged for a 2-1/2 hour hemodialysis treatment yesterday evening. PAST MEDICAL HISTORY: End-stage renal disease on hemodialysis, hypertension, dyslipidemia, type 2 diabetes mellitus, depression, coronary artery disease, history of myocardial infarction, history of CABG, history of TIA, history of basal cell carcinoma of the back and ears, gastroesophageal reflux disease, chronic obstructive pulmonary disease, history of pneumonias in the past, anemia of chronic renal failure, history of recurrent urinary tract infections, secondary hyperparathyroidism of renal origin. PAST SURGICAL HISTORY: CABG in 2005, history of resection of basal cell carcinoma of the ear and back, status post tonsillectomy, status post appendectomy, right arm AV fistula placement. ALLERGIES: Ceftriaxone, codeine, Nitroglycerin and sulfa. FAMILY HISTORY: No significant family history of end-stage renal disease requiring hemodialysis. SOCIAL HISTORY: She lives at home. She denies smoking, illicit drug abuse or alcohol abuse. REVIEW OF SYSTEMS: CONSTITUTIONAL: She reports low-grade fevers and chills. She denies weight loss. EYES: She denies blurry vision or double vision. HEENT: She denies dysphagia or odynophagia. CARDIAC: She reports shortness of breath and history of coronary artery disease. RESPIRATORY: She reports history of COPD and she complains of dyspnea with exertion. GI: She denies nausea or vomiting. She reports diarrhea. GENITOURINARY: She reports recurrent urinary tract infections. MUSCULOSKELETAL: She denies myalgias or arthralgias. HEMATOLOGY/ONCOLOGY: She reports chronic anemia of renal failure and secondary hyperparathyroidism. ENDOCRINE: She reports type 2 diabetes. She denies thyroid disease. HOME MEDICATIONS: Reviewed and include Tylenol, Albuterol, Amlodipine, aspirin, Atorvastatin, Carvedilol, Vitamin D3, Plavix, Cymbalta, Famotidine, Lasix, Gabapentin, Hydralazine, insulin, Emla Cream, Nitroglycerin, Zofran, Veltassa, MiraLax, Renvela, Velphoro, Tramadol. PHYSICAL EXAMINATION: VITAL SIGNS: Temperature 96.7, pulse 77, respiratory rate 18, blood pressure 144/74, saturating 93% on room air. INTAKE AND OUTPUT: Intake was not recorded yesterday. Dialysis removed 2.5 liters. Weight in the bed scale today is 72.1 kg. GENERAL: Patient is seen sitting out of bed, awake, alert and oriented, an elderly female in no apparent distress. HEENT: Extraocular muscles are intact. Tongue is moist. Neck is supple. Jugular veins are not elevated while she is sitting upright. CVS: Heart sounds are regular S1, S2. There is no significant leg edema. There is wrinkling of the legs noted. LUNGS: Symmetric with diminished breath sounds at the bases. ABDOMEN: Soft and nontender. EXTREMITIES: The right arm AV fistula is patent with thrill and bruit. NEUROLOGIC: Oriented x3 at baseline mentation. PSYCHIATRIC: Appropriate mood and affect. SKIN: Normal temperature and dry. LABORATORY DATA: White count 8.3, hemoglobin 10.8, platelets 252,000. Sodium 136, potassium 4.1. MICROBIOLOGY: Blood cultures are negative thus far. IMAGING STUDIES: Chest x-ray revealed moderate cardiomegaly, diffuse interstitial fibrosis, no pleural effusion. INPATIENT MEDICATIONS: 1. Tylenol p.r.n. 2. Amlodipine 10 mg p.o. daily. 3. Aspirin 81 mg p.o. daily. 4. Lipitor 40 mg p.o. q.h.s. 5. Carvedilol 6.25 mg p.o. once daily. 6. Plavix 75 mg p.o. daily. 7. Duloxetine 30 mg p.o. q.h.s. 8. Pepcid 10 mg p.o. daily. 9. Lasix 160 mg p.o. daily. 10.Gabapentin 200 mg p.o. three times a day. 11.Heparin subcutaneously. 12.Hydralazine 25 mg p.o. b.i.d. 13.Insulin. 14.Zofran p.r.n. 15.MiraLax p.r.n. 16.Renvela 2400 mg three times a day. 17.Velphoro 500 mg p.o. with meals. 18.Tramadol 50 mg twice a day p.r.n. pain. PROBLEMS: 1. End-stage renal disease on hemodialysis on a Wednesday, Wednesday, Wednesday schedule: Patient was dialyzed yesterday according to her usual schedule 2.5 liters were removed. Her volume status has improved. Her electrolytes are acceptable. Her fistula is in good use. Next dialysis will be on Wednesday. 2. Diastolic congestive heart failure: Patient had a mild exacerbation related to her weekend weight gain. She was dialyzed yesterday evening for an abbreviated treatment with 2.5 liters of fluid removed. She has been weaned off of nasal cannula. Next dialysis will be on Wednesday. She is on a 1500 cc fluid restriction. 3. Hypertension: Blood pressures were significantly elevated on admission, likely related to the missed dialysis treatment and blood pressures did improve with dialysis and fluid removal and she is also back on her usual home regimen of Amlodipine, Carvedilol and Hydralazine. 4. Anemia of chronic renal failure: Hemoglobin is at target. No intervention necessary at present. 5. Low-grade fever: There is no leukocytosis. Her blood culture so far is negative. Her rapid flu RSV and COVID test were all negative as well. She has not had any more diarrhea since admission and she remains afebrile in-house.
--- NOTE | 2020-09-10 21:52 | ECGEPIP ---
[facility] Test Date: 2020-09-10 Pat Name: DEION JADE Department: Room: R9483-70 Gender: Female Engineering And Development Director: JAYLEN : 1940 Requested By: SUSANNA HOWELL Order Number: [id number] Reading MD: Waldemar Christiansen Measurements Intervals [place] Rate: 79 P: 50 PA: 155 QRS: 92 QRSD: 142 T: 33 QT: 470 QTc: 541 Interpretive Statements SINUS RHYTHM Right axis deviation RIGHT BUNDLE BRANCH BLOCK Right bundle-branch block with left posterior fascicular block INFERIOR MYOCARDIAL INFARCTION, OLD WITH POSTERIOR EXTENSION Right ventricle hypertrophy. ST-T abnormalities secondary to RIGHT BUNDLE BRANCH BLOCK & RVH, and possibly myocardial ischemia. Decreased heart rate, more prominent precordial voltages, more prominent r repolarization abnormalities compared with 09/09/2020. Electronically Signed on 09-10-2020 21:52:44 EST by Waldemar Christiansen
[2020-09-11] VITALS: BP 152/60
[2020-09-11 04:00] VITALS: BP 146/50
[2020-09-11 07:36] VITALS: BP 157/70
[2020-09-11] MEDS ORDERED: SODIUM CHLORIDE 0.9% 1000ML IV PRN (08:00)
[2020-09-11] MEDS ORDERED: LIDOCAINE 1% SDV 5ML VIAL SC PRN (08:00)
[2020-09-11] MEDS: HumaLOG INSULIN (NovoLOG) PER UNIT SC SCH ×3 (08:06→17:01)
[2020-09-11] MEDS: SUCROFERRIC OXYHYDROXIDE 500MG CHEW TAB (VELPHORO) PO SCH ×3 (08:06→17:00)
[2020-09-11] MEDS: (RENVELA) SEVELAMER **CARBONate** 800 MG TAB PO SCH ×2 (08:07→17:00)
[2020-09-11] MEDS: LEVEMIR (INSULIN DETEMIR) 1 UNITS/0.01ML SC SCH (08:07)
[2020-09-11] MEDS: HEPARIN SOD (PORCINE) 5000UNITS/ML 1ML VIAL/SYRINGE SC SCH (08:07)
[2020-09-11] MEDS: GABAPENTIN 100 MG CAP PO SCH ×2 (08:07→17:00)
[2020-09-11] MEDS: FUROSEMIDE 80 MG TAB PO SCH (08:08)
[2020-09-11] MEDS: **hydrALAZINE HCL** 25 MG TAB PO SCH (08:08)
[2020-09-11] MEDS: FAMOTIDINE 20 MG TAB PO SCH (08:08)
[2020-09-11 08:09] VITALS: BP 157/70
[2020-09-11] MEDS: CARVedilol 6.25 MG TAB PO SCH (08:09)
[2020-09-11] MEDS: OXYMETAZOLINE 0.05% NASAL SPRAY (AFRIN) SCH (08:09)
[2020-09-11 08:50] LABS: BASO # 0.1 10^3/uL (0.0-0.2); BASO % 0.7 % (0.0-1.0); EOS # 0.2 10^3/uL (0.0-0.5); EOS % 2.2 % (0.0-3.0); HEMATOCRIT 34.7 % (36.0-47.0); HEMOGLOBIN 10.7 g/dl (12.0-15.5); LYMPH # 2.2 10^3/uL (1.5-5.0); LYMPH % 28.8 % (24.0-44.0); MEAN CORPUSCULAR HEMOGLOBIN 33.9 pg (27.0-33.0); MEAN CORPUSCULAR HGB CONC 30.8 g/dl (32.0-36.5); MEAN CORPUSCULAR VOLUME 109.8 fl (80.0-96.0); MONO # 1.2 10^3/uL (0.0-0.8); MONO % 15.4 % (0.0-5.0); NEUTROPHILS % 52.5 % (36.0-66.0); PLATELET COUNT, AUTOMATED 277 10^3/uL (150-450); RED BLOOD COUNT 3.16 10^6/uL (4.00-5.40); WHITE BLOOD COUNT 7.7 10^3/uL (4.0-10.0)
[2020-09-11] MEDS ORDERED: ASPIRIN 81 MG ENTERIC TAB PO SCH (09:00)
[2020-09-11] MEDS ORDERED: FUROSEMIDE 80 MG TAB PO SCH (09:00)
[2020-09-11] MEDS ORDERED: amLODIPine 10 MG TAB PO SCH (09:00)
[2020-09-11] MEDS ORDERED: CARVedilol 6.25 MG TAB PO SCH (09:00)
[2020-09-11] MEDS ORDERED: CLOPIDOGREL 75 MG TAB PO SCH (09:00)
[2020-09-11 09:16] LABS: CALCIUM LEVEL 8.8 MG/DL (8.8-10.2); CREATININE FOR GFR 7.67 MG/DL (0.55-1.30); GLOMERULAR FILTRATION RATE 5.4 (>32); MAGNESIUM LEVEL 2.2 MG/DL (1.8-2.4); POTASSIUM SERUM 4.4 MEQ/L (3.5-5.1)
[2020-09-11 12:00] VITALS: BP 169/72
[2020-09-11] MEDS ORDERED: OXYM05SP (12:23)
--- NOTE | 2020-09-11 17:05 | DS.PDOC ---
Discharge Summary General Date of Admission Sep 09, 2020 at 17:36 Date of Discharge 09/11/20 Discharge Summary PROCEDURES PERFORMED DURING STAY: [None]. ADMITTING DIAGNOSES: ESRD on dialysis HTN (hypertension)/ hypertensive urgency Physical deconditioning Diabetes CAD (coronary artery disease) Diarrhea Hypercholesteremia Acute CHF Elevated troponin DISCHARGE DIAGNOSES: ESRD on dialysis HTN (hypertension)/ hypertensive urgency Physical deconditioning Diabetes CAD (coronary artery disease) Diarrhea Hypercholesteremia Acute CHF Elevated troponin COMPLICATIONS/CHIEF COMPLAINT: Gastroenteritis/Hypertension. HISTORY OF PRESENT ILLNESS: Patient is 80 years old female with past history of end-stage renal disease on hemodialysis every Wednesday, Wednesday, Wednesday. She has history of coronary artery disease status post coronary artery bypass grafting in 2005, history of transient ischemic attacks (TIAs) in the past. Today is her regular day of dialysis. Before dialysis patient was found to have fever of 100.1. Also patient stated that for past 3-4 days she has been having multiple episodes of diarrhea. Patient recently received treatment with antibiotics for UTI. In ER patient was found to have no leukocytosis, hemoglobin 11.9, potassium of 5.1, creatinine 7.9, BNP over 50,000. Vital signs significant for hypertensive urgency with systolic blood pressure of 180. I talked to Dr. Kelley, she recommended dialysis today HOSPITAL COURSE: During hospital stay following issues addressed (1) ESRD on dialysis During hospital stay patient received dialysis Nephrology team follows her (2) HTN (hypertension)/ hypertensive urgency Patient developed hypertensive urgency. Improved after dialysis, under control t flaco Secondary to volume overload Labetalol IV (3) Physical deconditioning PT/OT (4) Diabetes Diabetes diet Insulin sliding scale Detemir 10 units twice a day (5) CAD (coronary artery disease) Continue home cardioprotective medication (6) Diarrhea Patient recently received antibiotics for UTI C. difficile test ordered (7) Hypercholesteremia Continue statin (8) Acute CHF Diastolic CHF Secondary to volume overload Previous echocardiogram was 01/27/2019, ejection fraction of 50% to 55% with normal systolic function BNP over 50,000, patient has orthopnea and plus JVD Dialysis DISCHARGE MEDICATIONS: Please see below. ALLERGIES: Please see below. PHYSICAL EXAMINATION ON DISCHARGE: VITAL SIGNS: Please see below. Objective: GENERAL APPEARANCE: NAD HEENT: no scleral icterus, plus JVD, EOMI CARDIOVASCULAR: S1S2 LUNGS: Diminished lung sounds bilaterally with mild crackles at the base ABDOMEN: soft & not tender w palpitation MUSCULOSKELETAL: +2 nonpitting edema INTEGUMENT: no generalized pallor NEUROLOGICAL: cranial nerve function from 2-12 intact intact, follows commands, speech not dysarthric LABORATORY DATA: Please see below. PROGNOSIS: Fair ACTIVITY: [As tolerated]. DIET: Cardiac DISPOSITION: Home ITEMS TO FOLLOWUP ON ON OUTPATIENT: Follow-up with spectroscopist and PCP in the outpatient settings DISCHARGE CONDITION: [Stable]. TIME SPENT ON DISCHARGE: Greater than 30 minutes. Vital Signs/I&Os Vital Signs Date Time Temp Pulse Resp B/P (MAP) Pulse Ox O2 Delivery O2 Flow Rate FiO2 09/11/20 12:00 97.5 83 18 169/72 (104) 96 Room Air 09/10/20 12:00 0.5 I&O- Last 24 Hours up to 6 AM 09/11/20 06:00 Intake Total 630 ml Output Total 0 ml Balance 630 ml Laboratory Data Labs 24H Laboratory Tests 2 09/10/20 17:46: Bedside Glucose (Misc Panel) 134H 09/10/20 20:19: Bedside Glucose (Misc Panel) 159H 09/10/20 21:52: Troponin I 0.64#H 09/11/20 07:51: Bedside Glucose (Misc Panel) 109 09/11/20 08:08: Immature Granulocyte % (Auto) 0.4, Neutrophils (%) (Auto) 52.5, Lymphocytes (%) (Auto) 28.8, Monocytes (%) (Auto) 15.4H, Eosinophils (%) (Auto) 2.2, Basophils (%) (Auto) 0.7, Neutrophils # (Auto) 4.0, Lymphocytes # (Auto) 2.2, Monocytes # (Auto) 1.2H, Eosinophils # (Auto) 0.2, Basophils # (Auto) 0.1, Nucleated Red Blood Cells % (auto) 0.0, Anion Gap 11, Glomerular Filtration Rate 5.4L, Calcium Level 8.8, Magnesium Level 2.2 09/11/20 11:41: Bedside Glucose (Misc Panel) 151H CBC/BMP Laboratory Tests 09/11/20 08:08 FSBS Laboratory Tests Test 09/10/20 17:46 09/10/20 20:19 09/11/20 07:51 12/9/20 11:41 Range/Units Bedside Glucose (Misc Panel) 134 159 109 151 83-110 MG/DL Microbiology Microbiology 09/09/20 Blood Culture - Preliminary, Resulted No growth after 24 hours . All specim... 09/09/20 Blood Culture - Preliminary, Resulted No Growth after 48 hours. All Specime... Discharge Medications Scheduled Amlodipine Besylate (Amlodipine Besylate) 10 Mg Tablet, 10 MG PO DAILY, (Reported) Aspirin (Aspirin EC) 81 Mg Tab, 81 MG PO DAILY, (Reported) Atorvastatin Calcium (Atorvastatin Calcium) 40 Mg Tablet, 40 MG PO QHS, (Reported) Carvedilol (Coreg) 6.25 Mg Tab, 6.25 MG PO DAILY, (Reported) Cholecalciferol (Vitamin D3) (Vitamin D3) 1,000 Unit Tablet, 2,000 UNITS PO DAILY, (Reported) Clopidogrel Bisulfate (Plavix) 75 Mg Tab, 75 MG PO DAILY, (Reported) Duloxetine Hcl (Cymbalta) 30 Mg Cap, 30 MG PO QHS, (Reported) Famotidine (Famotidine) 20 Mg Tablet, 20 MG PO BID, (Reported) Furosemide (Furosemide) 80 Mg Tablet, 160 MG PO DAILY, (Reported) Gabapentin (Gabapentin) 100 Mg Capsule, 200 MG PO TID, (Reported) Hydralazine HCl (Hydralazine HCl) 25 Mg Tablet, 25 MG PO BID, (Reported) Insulin Glargine (Lantus) 1 Units/0.01 Ml Susp, 6 UNITS SC QHS, (Reported) Insulin Lispro (Humalog Kwikpen U-100) 100 Unit/Ml Inj, 1 DOSE SC AC, (Reported) PER SLIDING SCALE Lidocaine/Prilocaine (Lidocaine-Prilocaine Cream) 2.5%/2.5% Cream..g., 1 DOSE TOP 3XW, (Reported) 1 TO 2 HOURS BEFORE DIALYSIS ON WEDNESDAY, WEDNESDAY AND WEDNESDAY Nitroglycerin (Nitroglycerin) 0.4 Mg Tab.subl, 1 TAB SL ASDIRECTED for chest pain, (Reported) 1st sign of attack; may repeat every 5 mins; if pain persists after 3 in 15 min, medical attention is recommended Oxymetazoline HCl (Nasal Har[place]) 30 Ml [place], 2 SPRAY NA BID Patiromer Calcium Sorbitex (Veltassa) 8.4 Gm Powd.pack, 8.4 GM PO 2XW, (Reported) SUN & TUES Sevelamer Carbonate (Renvela) 800 Mg Tablet, 2,400 MG PO TID, (Reported) Sucroferric Oxyhydroxide (Velphoro) 500 Mg Tab.chew, 500 MG PO WM, (Reported) Sulfamethoxazole/Trimethoprim (Sulfamethoxazole-Tmp Ss Tablet) 1 Each Tablet, 1 TAB PO DAILY, (Reported) Scheduled PRN Acetaminophen (Tylenol Extra Strength) 500 Mg Tablet, 1,000 MG PO TID PRN for PAIN / FEVER, (Reported) Albuterol Sulfate (Proair Hfa) 8.5 Gm Hfa.aer.ad, 2 PUFF INH Q4H PRN for SOB/WHEEZING, (Reported) Ondansetron HCl (Zofran) 4 Mg Tablet, 1 TAB PO Q4HP PRN for NAUSEA, (Reported) Polyethylene Glycol 3350 (Miralax) 119 Gm Powder, 17 GM PO DAILY PRN for CONSTIPATION, (Reported) Tramadol HCl (Tramadol HCl) 50 Mg Tablet, 50 MG PO BID PRN for PAIN, (Reported) Miscellaneous Medications [Comments] , (Reported) MED LIST MADE WITH EXTERNAL MED HISTORY Allergies Coded Allergies: ceftriaxone (Verified Allergy, Severe, SOB, hives,, 01/25/19) codeine (Verified Allergy, Intermediate, hives/ rash, 01/25/19) Penicillins (Verified Allergy, Unknown, 07/24/20) SUSANNA HOWELL DO Sep 11, 2020 17:05
[2020-09-11 20:00] VITALS: BP 142/56
--- NOTE | 2020-09-11 23:52 | IPN ---
PROGRESS NOTE DATE: 09/11/2020 SUBJECTIVE: Shanda is seen this morning at the bedside and later in the afternoon receiving her dialysis treatment. She feels great. She wants to go home. She offers no complaints. No shortness of breath. No chest pain. PHYSICAL EXAMINATION: VITAL SIGNS: Temperature 98.1, pulse 66, respiratory rate 18, blood pressure 142/56, saturating 96% on room air. INTAKE AND OUTPUT: Dialysis today removed 2 liters. GENERAL: Patient is seen in the hemodialysis unit, awake, alert and oriented, in no distress. HEAD/NECK: Extraocular muscles are intact. Tongue is moist. Neck is supple. Jugular veins are not elevated. HEART: Heart sounds are regular, S1, S2. No leg edema. LUNGS: Clear to auscultation bilaterally. No crackle, rale or rhonchus. ABDOMEN: Soft and nontender. There are bowel sounds. EXTREMITIES: The fistula in the right arm is patent and presently in use. NEUROLOGIC: Oriented x3, interactive, at baseline mentation. LABORATORY DATA: White count 7.7, hemoglobin 10.7, platelets 277,000. Sodium 137, potassium 4.4, magnesium 2.2. Blood cultures no growth times two sets. INPATIENT MEDICATIONS: Reviewed by myself and no change from yesterday. PROBLEMS: 1. End-stage renal disease on hemodialysis on a Wednesday, Wednesday, Wednesday schedule: Patient is dialyzed today per her maintenance schedule and 2 liters of fluid are removed. Volume status is optimized. Electrolytes are acceptable. Fistula is in good use. Next dialysis will be on Wednesday as an outpatient. 2. Diastolic congestive heart failure chronic and compensated: She is dialyzed today with 2 liters of fluid removed. She is back on room air. She continues on moderate oral fluid restriction and low salt diet. Continue three times weekly dialysis as an outpatient. 3. Hypertension: Blood pressures are acceptable, continue with the home regimen of Amlodipine, Carvedilol and Hydralazine. 4. Anemia of chronic renal failure: She will continue on anemia protocol with Aranesp in the outpatient dialysis unit. DISPOSITION: Patient is stable for discharge from nephrology point of view.
[2021-09-10] MEDS ORDERED: ASPIRIN 81 MG ENTERIC TAB PO SCH (16:30)
[2021-09-10] MEDS ORDERED: CLOPIDOGREL 75 MG TAB PO SCH (16:30)
[2021-09-10] MEDS ORDERED: amLODIPine 10 MG TAB PO SCH (16:30)
== END 2020-09-11 20:15 | disposition home or self-care (01) | DRG 291 ==
LOC: EDBD 12:53 → M ED 12:53 → M ED INP 17:36 → ENRESERV 18:32 → M PCU 21:47
PROVIDERS: ADMIT Internal Medicine; ATTEND Internal Medicine
DX: I13.2 Hypertensive heart and chronic kidney disease with heart failure and with stage 5 chronic kidney disease, or end stage renal disease (principal); I50.33 Acute on chronic diastolic (congestive) heart failure; N18.6 End stage renal disease; N25.81 Secondary hyperparathyroidism of renal origin; I16.0 Hypertensive urgency; E87.70 Fluid overload, unspecified; E11.9 Type 2 diabetes mellitus without complications; I25.10 Atherosclerotic heart disease of native coronary artery without angina pectoris; R19.7 Diarrhea, unspecified; E78.00 Pure hypercholesterolemia, unspecified; Z86.73 Personal history of transient ischemic attack (TIA), and cerebral infarction without residual deficits; Z79.82 Long term (current) use of aspirin; Z79.899 Other long term (current) drug therapy; Z79.4 Long term (current) use of insulin; Z88.0 Allergy status to penicillin; Z88.5 Allergy status to narcotic agent; Z88.8 Allergy status to other drugs, medicaments and biological substances; K21.9 Gastro-esophageal reflux disease without esophagitis; D63.1 Anemia in chronic kidney disease; J44.9 Chronic obstructive pulmonary disease, unspecified; Z85.828 Personal history of other malignant neoplasm of skin

== ENCOUNTER → 2020-11-20 | Outpatient (REF) | payer MEDICARE, MEDICAID ==
[~2020-11-20] MED LIST changes: -CLIN150C14 PO; +CLIN150C15 PO; +COMMENTS; +D31000TA2 PO; +OXYM05SP; +RENV2TAB PO; +SULF400T14 PO
== END ==
LOC: M LAB REF 16:40
PROVIDERS: ATTEND Internal Medicine Nephrology
DX: N18.6 End stage renal disease (principal); N39.0 Urinary tract infection, site not specified; E11.22 Type 2 diabetes mellitus with diabetic chronic kidney disease

== ENCOUNTER 2021-01-13 16:48 | Emergency (ER) | payer MEDICARE, MEDICAID ==
[2021-01-13] MEDS ORDERED: traMADol 50 MG TAB PO ONE (20:50)
[2021-01-13] MEDS ORDERED: LIDOCAINE 5% (LIDODERM) PATCH TD ONE (20:50)
[2021-01-13] MEDS ORDERED: **NOTE PATIENT COMMENT** MISC XX SCH ×2 (21:00)
--- NOTE | 2021-01-13 22:07 | REPVR ---
PROCEDURE INFORMATION: Exam: CT Chest Without Contrast; Diagnostic Exam date and time: 01/13/2021 9:11 PM Age: 81 years old Clinical indication: Injury or trauma; Fall; Blunt trauma (contusions or hematomas); Additional info: Fall 2 days ago, pain, tender shoulder, thoracic, chest TECHNIQUE: Imaging protocol: Diagnostic computed tomography of the chest without contrast. 3D rendering (Not supervised by radiologist): MIP and/or 3D reconstructed images were created by the technologist. Radiation optimization: All CT scans at this facility use at least one of these dose optimization techniques: automated exposure control; mA and/or kV adjustment per patient size (includes targeted exams where dose is matched to clinical indication); or iterative reconstruction. COMPARISON: CT Chest without contrast 04/12/2019 5:23 PM FINDINGS: Lungs: Bilateral ill-defined ground-glass opacities may represent atelectasis. Clinical correlation to exclude multifocal pneumonitis suggested. Focus of consolidation superior segment of the right lower lobe may represent infiltrate or mass. Bilateral smooth thickening of the interlobular septae a in both lung apices and in the lower lobes consistent with interstitial edema. Bibasilar atelectasis. Pleural spaces: Small bilateral pleural effusions. Heart: Status post CABG. There is severe atherosclerotic calcification of the coronary arteries. Cardiomegaly. Dense calcification in the mitral valve annulus. Mediastinal space: Intraluminal hyperdensity demonstrated in the midthoracic esophagus may represent ingested radiopaque material such as medication. Pulmonary arteries: There is enlargement of the central pulmonary arteries, findings which can be associated with pulmonary arterial hypertension which should be correlated clinically. Aorta: There is moderate atherosclerosis in the thoracic aorta. There is fusiform dilatation of the ascending thoracic aorta which measures 3.8 cm. maximally. There is no saccular component. Lymph nodes: Mediastinal lymphadenopathy measures up to 1.9 cm in the precarinal region, likely postinflammatory. Bones/joints: The spine demonstrates moderate degenerative changes. Status post sternotomy. Soft tissues: Unremarkable. IMPRESSION: 1. Bilateral ill-defined ground-glass opacities may represent atelectasis. Clinical correlation to exclude multifocal pneumonitis suggested. 2. Focus of consolidation superior segment of the right lower lobe may represent infiltrate or mass. 3. Bilateral smooth thickening of the interlobular septae a in both lung apices and in the lower lobes consistent with interstitial edema. 4. There is fusiform dilatation of the ascending thoracic aorta which measures 3.8 cm. maximally. There is no saccular component. 5. Cardiomegaly. Status post CABG. 6. There is enlargement of the central pulmonary arteries, findings which can be associated with pulmonary arterial hypertension which should be correlated clinically. 7. Small bilateral pleural effusions. 8. Mediastinal lymphadenopathy measures up to 1.9 cm in the precarinal region, likely postinflammatory. Electronically signed by: Waldemar Wells On 01/13/2021 22:07:36 PM
--- NOTE | 2021-01-13 22:09 | REPVR ---
PROCEDURE INFORMATION: Exam: CT Left Upper Extremity Without Contrast, Shoulder Exam date and time: 01/13/2021 9:11 PM Age: 81 years old Clinical indication: Injury or trauma; Fall; Blunt trauma (contusions or hematomas); Shoulder; Left; Additional info: Fall 2 days ago, pain, tender shoulder, thoracic, chest TECHNIQUE: Imaging protocol: CT of the Left upper extremity without contrast was performed. Exam focused on the shoulder. Radiation optimization: All CT scans at this facility use at least one of these dose optimization techniques: automated exposure control; mA and/or kV adjustment per patient size (includes targeted exams where dose is matched to clinical indication); or iterative reconstruction. COMPARISON: CR Shoulder, complete 01/25/2019 2:38 PM FINDINGS: Bones/joints: Degenerative changes in the acromioclavicular joint. Degenerative changes in the glenohumeral joint. Soft tissues: Calcific peritendinitis in the distal supraspinatus tendon. IMPRESSION: 1. Calcific peritendinitis in the distal supraspinatus tendon. 2. Degenerative changes in the acromioclavicular and glenohumeral joints. Electronically signed by: Waldemar Wells On 01/13/2021 22:10:23 PM
[2021-01-13] MEDS ORDERED: ASPE4PAD TOP (22:51)
[2021-01-13] MEDS ORDERED: TRAM50TA2 PO (22:51)
[2021-01-13] MEDS ORDERED: LEVO250T12 PO (23:00)
[2021-01-13] MEDS ORDERED: LevoFLOXacin 250 MG TABLET PO ONE (23:00)
[2021-01-14 01:23] VITALS: BP 157/68
--- NOTE | 2021-01-15 09:29 | ED PDOC ---
Post-Departure Follow-Up ct chest faxed to dr de leon for fu Rasheed Rubin MD Jan 15, 2021 09:29
== END 2021-01-14 01:38 | disposition home or self-care (01) ==
LOC: M ED 16:48
DX: M75.32 Calcific tendinitis of left shoulder (principal); R91.8 Other nonspecific abnormal finding of lung field; W19.XXXA Unspecified fall, initial encounter; Y92.9 Unspecified place or not applicable; Y93.9 Activity, unspecified; Y99.9 Unspecified external cause status; E11.9 Type 2 diabetes mellitus without complications; I50.9 Heart failure, unspecified; I25.2 Old myocardial infarction; I10 Essential (primary) hypertension; N18.5 Chronic kidney disease, stage 5; Z99.2 Dependence on renal dialysis; Z87.01 Personal history of pneumonia (recurrent); Z98.61 Coronary angioplasty status; Z79.4 Long term (current) use of insulin; Z79.82 Long term (current) use of aspirin; Z79.899 Other long term (current) drug therapy; Z88.0 Allergy status to penicillin; Z88.1 Allergy status to other antibiotic agents; Z88.5 Allergy status to narcotic agent

== ENCOUNTER 2021-07-18 16:46 | Emergency (ER) | payer MEDICARE, MEDICAID ==
[~2021-07-18] VITALS: Ht 170.2 cm; Wt 72.9 kg
[~2021-07-18 16:46] MED LIST changes: +ASPE4PAD TOP; -CLIN150C15 PO; +CLIN150C17 PO; +FAMO10TA50 PO; -FAMO1TAB25 PO; -KLOR10TA76 PO; -KLOR20TA42 PO; +LIDO1CRE42 TOP; -LIDO2.5C15 TOP; +POTA-136 PO; +POTA-141 PO; -PREV15CA18 PO; +PREV15CA24 PO
[2021-07-18 16:49] VITALS: BP 153/68
--- OUTSIDE RECORDS SUMMARY | 2021-07-18 16:59 | CCD ---
Author Author [facility] Organization [facility] Address Unknown Phone Unavailable Care Team Providers Care Environmental Services Aide Name Role Phone Faith SANCHEZ MD Unavailable Unavailable MARAVEGIAS, Faith GRANADO MD Unavailable Unavailable MARAVEGIAS, Faith GRANADO MD Unavailable Unavailable MARAVEGIAS, Faith GRANADO MD Unavailable Unavailable MARAVEGIAS, Faith GRANADO MD Unavailable Unavailable MARAVEGIAS, Faith GRANADO MD Unavailable Unavailable MARAVEGIAS, Faith GRANADO MD Unavailable Unavailable MARAVEGIAS, Faith GRANADO MD Unavailable Unavailable MARAVEGIAS, Faith GRANADO MD Unavailable Unavailable MARAVEGIAS, Faith GRANADO MD Unavailable Unavailable MARAVEGIAS, Faith GRANADO MD Unavailable Unavailable MARAVEGIAS, Faith GRANADO MD Unavailable Unavailable MARAVEGIAS, Faith GRANADO MD Unavailable Unavailable MARAVEGIAS, Faith GRANADO MD Unavailable Unavailable [place], F Eduardo PA Unavailable Unavailable [place], F Eduardo PA Unavailable Unavailable Ana Paula, F Eduardo PA Unavailable Unavailable Ana Paula, F Eduardo PA Unavailable Unavailable [place], F Eduardo PA Unavailable Unavailable [place], F Eduardo PA Unavailable Unavailable [place], F Eduardo PA Unavailable Unavailable Ana Paula, F Eduardo PA Unavailable Unavailable Ana Paula, F Eduardo PA Unavailable Unavailable Ritchie Goss Unavailable Unavailable Morro Yoo MD Unavailable Unavailable Morro Yoo MD Unavailable Unavailable Ho, H Amauri GRESHAM Unavailable Unavailable Ho, H Amauri GRESHAM Unavailable Unavailable Ho, H Amauri GRESHAM Unavailable Unavailable Ho, H Amauri GRESHAM Unavailable Unavailable Ho, H Amauri GRESHAM Unavailable Unavailable Ho, H Amauri GRESHAM Unavailable Unavailable Ho, H Amauri GRESHAM Unavailable Unavailable Ho, H Amauri GRESHAM Unavailable Unavailable Ho, H Amauri GRESHAM Unavailable Unavailable Ho, H Amauri GRESHAM Unavailable Unavailable Ho, H Amauri GRESHAM Unavailable Unavailable Ho, H Amauri GRESHAM Unavailable Unavailable ZEGIL D YESSICA MULTI MEDIA SPECIALIST Unavailable Unavailable ZEGIL, D YESSICA MULTI MEDIA SPECIALIST Unavailable Unavailable ZEGIL, D YESSICA MULTI MEDIA SPECIALIST Unavailable Unavailable LD, WAJEEHA DO Unavailable [phone] LD, WAJEEHA DO Unavailable [phone] LD, WAJEEHA DO Unavailable [phone] LD, WAJEEHA DO Unavailable [phone] LD, WAJEEHA DO Unavailable [phone] LD, WAJEEHA DO Unavailable [phone] LD, WAJEEHA DO Unavailable [phone] LD, WAJEEHA DO Unavailable [phone] LD, WAJEEHA DO Unavailable [phone] LD, WAJEEHA DO Unavailable [phone] LD, WAJEEHA DO Unavailable [phone] LD, WAJEEHA DO Unavailable [phone] LD, WAJEEHA DO Unavailable [phone] LD, WAJEEHA DO Unavailable [phone] LD, WAJEEHA DO Unavailable [phone] LD, WAJEEHA DO Unavailable [phone] LD, WAJEEHA DO Unavailable [phone] JAITLY, MANASVI MD Unavailable Unavailable JAITLY, MANASVI MD Unavailable Unavailable JAITLY, MANASVI MD Unavailable Unavailable JAITLY, MANASVI MD Unavailable Unavailable JAITLY, MANASVI MD Unavailable Unavailable JAITLY, MANASVI MD Unavailable Unavailable JAITLY, MANASVI MD Unavailable Unavailable JAITLY, MANASVI MD Unavailable Unavailable JAITLY, MANASVI MD Unavailable Unavailable JAITLY, MANASVI MD Unavailable Unavailable JAITLY, MANASVI MD Unavailable Unavailable JAITLY, MANASVI MD Unavailable Unavailable JAITLY, MANASVI MD Unavailable Unavailable JAITLY, MANASVI MD Unavailable Unavailable JAITLY, MANASVI MD Unavailable Unavailable JAITLY, MANASVI MD Unavailable Unavailable JAITLY, MANASVI MD Unavailable Unavailable JAITLY, MANASVI MD Unavailable Unavailable JAITLY, MANASVI MD Unavailable Unavailable JAITLY, MANASVI MD Unavailable Unavailable JAITLY, MANASVI MD Unavailable Unavailable JAITLY, MANASVI MD Unavailable Unavailable JAITLY, MANASVI MD Unavailable Unavailable JAITLY, MANASVI MD Unavailable Unavailable JAITLY, MANASVI MD Unavailable Unavailable JAITLY, MANASVI MD Unavailable Unavailable JAITLY, MANASVI MD Unavailable Unavailable JAITLY, MANASVI MD Unavailable Unavailable JAITLY, MANASVI MD Unavailable Unavailable JAITLY, MANASVI MD Unavailable Unavailable JAITLY, MANASVI MD Unavailable Unavailable JAITLY, MANASVI MD Unavailable Unavailable JAITLY, MANASVI MD Unavailable Unavailable JAITLY, MANASVI MD Unavailable Unavailable JAITLY, MANASVI MD Unavailable Unavailable JAITLY, MANASVI MD Unavailable Unavailable JAITLY, MANASVI MD Unavailable Unavailable JAITLY, MANASVI MD Unavailable Unavailable JAITLY, MANASVI MD Unavailable Unavailable JAITLY, MANASVI MD Unavailable Unavailable JAITLY, MANASVI MD Unavailable Unavailable JAITLY, MANASVI MD Unavailable Unavailable JAITLY, MANASVI MD Unavailable Unavailable JAITLY, MANASVI MD Unavailable Unavailable JAITLY, MANASVI MD Unavailable Unavailable JAITLY, MANASVI MD Unavailable Unavailable Marlon, Wahib MD Unavailable Unavailable Marlon, Wahib MD Unavailable Unavailable Marlon, Wahib MD Unavailable Unavailable Marlon, Wahib MD Unavailable Unavailable Marlon, Wahib MD Unavailable Unavailable Marlon, Wahib MD Unavailable Unavailable Marlon, Wahib MD Unavailable Unavailable Marlon, Wahib MD Unavailable Unavailable Marlon, Wahib MD Unavailable Unavailable Marlon, Wahib MD Unavailable Unavailable Marlon, Wahib MD Unavailable Unavailable Marlon, Wahib MD Unavailable Unavailable Marlon, Wahib MD Unavailable Unavailable Marlon, Wahib MD Unavailable Unavailable Marlon, Wahib MD Unavailable Unavailable JOSELYN, A MAURY PA Unavailable Unavailable JOSELYN, A MAURY PA Unavailable Unavailable JOSELYN, A MAURY PA Unavailable Unavailable JOSELYN, A MAURY PA Unavailable Unavailable JOSELYN, A MAURY PA Unavailable Unavailable JOSELYN, A MAURY PA Unavailable Unavailable JOSELYN, A MAURY PA Unavailable Unavailable JOSELYN, A MAURY PA Unavailable Unavailable JOSELYN, A MAURY PA Unavailable Unavailable JOSELYN, A MAURY PA Unavailable Unavailable JOSELYN, A MAURY PA Unavailable Unavailable JOSELYN, A MAURY PA Unavailable Unavailable JOSELYN, A MAURY PA Unavailable Unavailable Luu, R Alexx PA Unavailable + Luu, R Alexx PA Unavailable + Luu, R Alexx PA Unavailable + Luu, R Alexx PA Unavailable Luu, R Alexx PA Unavailable Luu, R Alexx PA Unavailable Luu, R Alexx PA Unavailable + Luu, R Alexx PA Unavailable Luu, R Alexx PA Unavailable Luu, R Alexx PA Unavailable Luu, R Alexx PA Unavailable Alejandro MIN MD Unavailable Unavailable Alejandro MIN MD Unavailable Unavailable Alejandro MIN MD Unavailable Unavailable Alejandro MIN MD Unavailable Unavailable Alejandro MIN MD Unavailable Unavailable Alejandro MIN MD Unavailable Unavailable Alejandro MIN MD Unavailable Unavailable Alejandro MIN MD Unavailable Unavailable Alejandro MIN MD Unavailable Unavailable Alejandro MIN MD Unavailable Unavailable Alejandro MIN MD Unavailable Unavailable MECHELLEAlejandro RODRIGUEZ MD Unavailable Unavailable Alejandro MIN MD Unavailable Unavailable Alejandro MIN MD Unavailable Unavailable MECHELLEAlejandro MAHARAJ MD Unavailable Unavailable MECHELLEAlejandro MAHARAJ MD Unavailable Unavailable MECHELLEAlejandro MD Unavailable Unavailable MECHELLEAlejandro MAHARAJ MD Unavailable Unavailable MECHELLEAlejandro MAHARAJ MD Unavailable Unavailable MECHELLEAlejandro MAHARAJ MD Unavailable Unavailable MECHELLEAlejandro MAHARAJ MD Unavailable Unavailable MECHELLEAlejandro MAHARAJ MD Unavailable Unavailable MECHELLEAlejandro MAHARAJ MD Unavailable Unavailable MECHELLEAlejandro MD Unavailable Unavailable MECHELLEAlejandro MAHARAJ MD Unavailable Unavailable MECHELLEAlejandro MAHARAJ MD Unavailable Unavailable MECHELLEAlejandro MAHARAJ MD Unavailable Unavailable MECHELLEAlejandro MAHARAJ MD Unavailable Unavailable MECHELLEAlejandro MAHARAJ MD Unavailable Unavailable MECHELLEAlejandro MAHARAJ MD Unavailable Unavailable MECHELLEAlejandro MAHARAJ MD Unavailable Unavailable MECHELLEAlejandro MAHARAJ MD Unavailable Unavailable MECHELLEAlejandro MAHARAJ MD Unavailable Unavailable MECHELLEAlejandro MAHARAJ MD Unavailable Unavailable MECHELLEAlejandro MAHARAJ MD Unavailable Unavailable MECHELLEAlejandro MAHARAJ MD Unavailable Unavailable MECHELLEAlejandro MAHARAJ MD Unavailable Unavailable MECHELLEAlejandro MAHARAJ MD Unavailable Unavailable MECHELLEAlejandro MAHARAJ MD Unavailable Unavailable MECHELLEAlejandro MAHARAJ MD Unavailable Unavailable MECHELLEAlejandro MAHARAJ MD Unavailable Unavailable MECHELLEAlejandro MAHARAJ MD Unavailable Unavailable MECHELLEAlejandro MAHARAJ MD Unavailable Unavailable MECHELLEAlejandro MAHARAJ MD Unavailable Unavailable MECHELLEAlejandro MAHARAJ MD Unavailable Unavailable MECHELLEAlejandro MAHARAJ MD Unavailable Unavailable MECHELLEAlejandro MAHARAJ MD Unavailable Unavailable MECHELLEAlejandro MAHARAJ MD Unavailable Unavailable MECHELLEAlejandro MAHARAJ MD Unavailable Unavailable MECHELLEAlejandro MAHARAJ MD Unavailable Unavailable MECHELLEAlejandro MAHARAJ MD Unavailable Unavailable MECHELLEAlejandro AMHARAJ MD Unavailable Unavailable MECHELLEAlejandro MAHARAJ MD Unavailable Unavailable MECHELLEAlejandro MAHARAJ MD Unavailable Unavailable MECHELLEAlejandro MAHARAJ MD Unavailable Unavailable MECHELLEAlejandro MAHARAJ MD Unavailable Unavailable MECHELLEAlejandro MAHARAJ MD Unavailable Unavailable MECHELLEAlejandro MAHARAJ MD Unavailable Unavailable MECHELLEAlejandro MAHARAJ MD Unavailable Unavailable MECHELLEAlejandro MAHARAJ MD Unavailable Unavailable MECHELLEAlejandro MAHARAJ MD Unavailable Unavailable MECHELLEAlejandro MAHARAJ MD Unavailable Unavailable MECHELLEAlejandro MAHARAJ MD Unavailable Unavailable MarlonRonel thomas MD Unavailable Unavailable Marlon Wahib MD Unavailable Unavailable Marlon, Wahib MD Unavailable Unavailable Marlon, Wahib MD Unavailable Unavailable Marlon, Wahib MD Unavailable Unavailable Marlon, Wahib MD Unavailable Unavailable Marlon, Wahib MD Unavailable Unavailable Marlon, Wahib MD Unavailable Unavailable Marlon, Wahib MD Unavailable Unavailable Marlon, Wahib MD Unavailable Unavailable Marlon, Wahib MD Unavailable Unavailable Marlon, Wahib MD Unavailable Unavailable Marlon, Wahib MD Unavailable Unavailable Marlon, Wahib MD Unavailable Unavailable Marlon, Wahib MD Unavailable Unavailable Craig Luu Unavailable Unavailable Re-disclosure Warning The records that you are about to access may contain information from federally-assisted alcohol or drug abuse programs. If such information is present, then the following federally mandated warning applies: This information has been disclosed to you from records protected by federal confidentiality rules (42 CFR part 2). The federal rules prohibit you from making any further disclosure of this information unless further disclosure is expressly permitted by the written consent of the person to whom it pertains or as otherwise permitted by 42 CFR part 2. A general authorization for the release of medical or other information is NOT sufficient for this purpose. The Federal rules restrict any use of the information to criminally investigate or prosecute any alcohol or drug abuse patient.The records that you are about to access may contain highly sensitive health information, the redisclosure of which is protected by Article 27-F of the [facility] Public Health law. If you continue you may have access to information: Regarding HIV / AIDS; Provided by facilities licensed or operated by the [facility] Office of Mental Health; or Provided by the [facility] Office for People With Developmental Disabilities. If such information is present, then the following [facility] mandated warning applies: This information has been disclosed to you from confidential records which are protected by state law. State law prohibits you from making any further disclosure of this information without the specific written consent of the person to whom it pertains, or as otherwise permitted by law. Any unauthorized further disclosure in violation of state law may result in a fine or group home sentence or both. A general authorization for the release of medical or other information is NOT sufficient authorization for further disc losure. Allergies and Adverse Reactions Type Description Substance Reaction Status Data Source(s ) Drug allergy Drug allergy ceftriaxone (From Rocephin) [facility] Drug allergy Drug allergy codeine Unknown Reaction [facility] Drug allergy Drug allergy Sulfa (Sulfonamide Antibiotics) Unknown Emeigh ction [facility] Drug allergy Drug allergy Penicillins [facility] Encounters Encounter Providers Location Date Indications Data Source(s ) Emergency Attender: Eduardo DESOUZA ED-ED 01:17:00 PM EDT - 07/05/2021 01:30:00 PM EDT lwg wound [facility] lwg wound Outpatient CPSCAORT-LABEJN 04/12/2021 02:38:00 PM EDT [facility] Emergency Attender: YESSICA SILVA [facility] ED-ED 06/2021 10:32:00 PM EDT - 04/12/2021 02:09:00 AM EDT CHANGE IN MENTAL STATUS [facility] CHANGE IN MENTAL STATUS Patient discharged. Emergency Attender: YESSICA SILVA [facility] ED-ED 01/02 09:56:00 AM EDT - 2021 10:57:00 AM EDT FALL [facility] FALL Patient discharged. Emergency Attender: YESSICA SILVA [facility] ED-ED 01/2021 12:16:00 PM EDT - 01/05/2021 12:50:00 PM EDT ARM BLEEDING [facility] ARM BLEEDING Patient discharged. Emergency Attender: Alexx Luu PAAttender: Alexx DESOUZA ED-ED 11/25/2020 01:13:00 AM EST - 11/25/2020 04:27:00 AM EST ABD PAIN [facility] ABD PAIN Patient discharged. Outpatient CPSCAORT-LABEJN 11/19/2020 03:05:00 PM EST [facility] Outpatient Attender: CATHERINE JAFFE DO ED-LABPNP 11/04 02:22:00 PM EST - 11/19/2020 02:23:00 PM EST N186 [id number] [facility] N186 [id number] Patient discharged. Outpatient Attender: Amauri MOSESCATREY-CPSCASARAH 09:44:00 AM EST - 08/28/2020 09:45:00 AM EST [facility] Patient discharged. Outpatient Att[facility]: [facility] 08/08/2020 08:4 5:00 AM EST C44.612 [facility] C44.612 Outpatient Attender: Ronel Mason MD 07/09/2020 10:37:00 AM EDT [facility] Outpatient Attender: Amauri IRBY-CPSCADER 0 08:13:00 AM EDT - 07/08/2020 08:14:00 AM EDT [facility] Patient discharged. Outpatient BIJALEGLADIS 07/02/2020 03:06:00 PM EDT [facility] Outpatient Attender: Amauri IRBY-CPSCASARAH 0 02:06:00 PM EDT - 07/02/2020 02:07:00 PM EDT [facility] Patient discharged. Outpatient Attender: Ronel Mason MD ED-LABPNP 020 10:54:00 AM EDT - 07/02/2020 10:55:00 AM EDT D472 [facility] D472 Patient discharged. Outpatient Attender: Amauri IRBY-CPSDANIELLE 0 08:31:00 AM EDT - 06/27/2020 08:32:00 AM EDT C44.310 [facility] C44.310 Patient discharged. Outpatient BIJALEJFaith 06/25/2020 08:28:00 PM EDT [facility] Emergency Attender: MAURY DESOUZA ED-ED 06/25 05:01:00 PM EDT - 06/25/2020 08:33:00 PM EDT FEVER, CHILLS,ABD PAIN [facility] FEVER, CHILLS,ABD PAIN Patient discharged. Outpatient Attender: Ronel Mason MD ER-CTCMEDONC 06/18/2020 01:20:00 PM EDT [facility] Admission cancelled. Disregard status an d admitted date. Emergency Attender: LOY SANCHEZ MD ED-ED 0 05/21/2020 05:12:00 PM EDT - 05/21/2020 05:30:00 PM EDT small area bleeding on head [facility] small area bleeding on head Patient discharged. Outpatient Attender: Amauri IRBY-CPSDANIELLE 0 10:45:00 AM EDT - 05/21/2020 10:46:00 AM EDT [facility] Patient discharged. Inpatient Attender: BEATRICE KILGORE MDA ttender: MAURY MIN MDAdmitter: MAURY MIN MD ER-2WEST 01/13/2019 05:56:00 PM EDT - 01/21/2019 01:17:00 PM EDT [facility] Medications Medication Brand Name Start Date Product Form Dose Route Admi nistrative Instructions Pharmacy Instructions Status Indications Reaction Description Data Source(s) 800 mg 06/11/2021 12:00:00 AM EDT tablet 360 TAKE 2 TABLETS BY MOUTH WITH BREAKFAST, LUNCH, AND DINNER TAKE 2 TABLETS BY MOUTH WITH BREAKFAST, LUNCH, AND DINNER SOLD: 06/11/2021 [facility] 8.4 gram 06/02/2021 12:00:00 AM EDT powder in packet 30 MIX 1 PACKET IN HALF A GLASS OF WATER AND DRINK 4 DAYS A WEEK (ON ALL NON-DIALYSIS DAYS) MIX 1 PACKET IN HALF A GLASS OF WATER AND DRINK 4 DAYS A WEEK (ON ALL NON-DIALYSIS DAYS) SOLD: 06/02/2021 [facility] Sulfamethoxazole 400 MG / Trimethoprim 80 MG Oral Tabl et 400-80 mg SULFAMETHOXAZOLE/TRIMETHOPRIM 05/08/2021 12:00:00 AM EDT tablet 30 TAKE ONE TABLET BY MOUTH EVERY DAY TAKE ONE TABLET BY MOUTH EVERY DAY SOLD: 05/12/2021 [facility] Sulfamethoxazole 400 MG / Trimethoprim 80 MG Oral Tabl et 400-80 mg SULFAMETHOXAZOLE/TRIMETHOPRIM 05/08/2021 12:00:00 AM EDT tablet 30 TAKE ONE TABLET BY MOUTH EVERY DAY TAKE ONE TABLET BY MOUTH EVERY DAY SOLD: 06/11/2021 [facility] 30 mg 05/07/2021 12:00:00 AM EDT capsule,delayed release (DR/EC) 30 TAKE ONE CAPSULE BY MOUTH EVERY DAY TAKE ONE CAPSULE BY MOUTH EVERY DAY SOLD: 05/12/2021 [facility] Famotidine 20 MG Oral Tablet FAMOTIDINE 05/07/2021 12:00:00 AM EDT tab let 60 TAKE ONE TABLET BY MOUTH TWICE A DAY TAKE ONE TABLET BY MOUTH TWICE A DAY SOLD: 06/11/2021 [facility] 30 mg 05/07/2021 12:00:00 AM EDT capsule,delayed release (DR/EC) 30 TAKE ONE CAPSULE BY MOUTH EVERY DAY TAKE ONE CAPSULE BY MOUTH EVERY DAY SOLD: 06/11/2021 [facility] Famotidine 20 MG Oral Tablet FAMOTIDINE 05/07/2021 12:00:00 AM EDT tab let 60 TAKE ONE TABLET BY MOUTH TWICE A DAY TAKE ONE TABLET BY MOUTH TWICE A DAY SOLD: 05/12/2021 [facility] 250 mg 04/12/2021 12:00:00 AM EDT tablet 14 TAKE ONE TABLET BY MOUTH TWICE A DAY TAKE ONE TABLET BY MOUTH TWICE A DAY SOLD: 04/12/2021 [facility] 100 mg 04/09/2021 12:00:00 AM EDT capsule 180 TAKE TWO CAPSULES BY MOUTH THREE TIMES A DAY TAKE TWO CAPSULES BY MOUTH THREE TIMES A DAY SOLD: [facility] atorvastatin 40 MG Oral Tablet ATORVASTATIN CALCIUM 04/09/2021 1 2:00:00 AM EDT tablet 30 TAKE ONE TABLET BY MOUTH EVERY D AY TAKE ONE TABLET BY MOUTH EVERY DAY SOLD: 06/11/2021 [facility] 100 mg 04/09/2021 12:00:00 AM EDT capsule 180 TAKE TWO CAPSULES BY MOUTH THREE TIMES A DAY TAKE TWO CAPSULES BY MOUTH THREE TIMES A DAY SOLD: [facility] 100 mg 04/09/2021 12:00:00 AM EDT capsule 180 TAKE TWO CAPSULES BY MOUTH THREE TIMES A DAY TAKE TWO CAPSULES BY MOUTH THREE TIMES A DAY SOLD: [facility] atorvastatin 40 MG Oral Tablet ATORVASTATIN CALCIUM 04/09/2021 1 2:00:00 AM EDT tablet 30 TAKE ONE TABLET BY MOUTH EVERY D AY TAKE ONE TABLET BY MOUTH EVERY DAY SOLD: 05/12/2021 [facility] atorvastatin 40 MG Oral Tablet ATORVASTATIN CALCIUM 04/09/2021 1 2:00:00 AM EDT tablet 30 TAKE ONE TABLET BY MOUTH EVERY D AY TAKE ONE TABLET BY MOUTH EVERY DAY SOLD: 04/12/2021 [facility] Nystatin 100 UNT/MG Topical Powder 100,000 unit/gram NYSTATI N 04/03/2021 12:00:00 AM EDT powder 15 APPLY TO AFFECTED AREA(S) THREE TIMES A DAY APPLY TO AFFECTED AREA(S) THREE TIMES A DAY SOLD: 04/03/2021 [facility] Nystatin 100 UNT/MG Topical Powder 100,000 unit/gram NYSTATI N 04/03/2021 12:00:00 AM EDT powder 15 APPLY TO AFFECTED AREA(S) THREE TIMES A DAY APPLY TO AFFECTED AREA(S) THREE TIMES A DAY SOLD: 06/02/2021 [facility] Nystatin 100 UNT/MG Topical Powder 100,000 unit/gram NYSTATI N 04/03/2021 12:00:00 AM EDT powder 15 APPLY TO AFFECTED AREA(S) THREE TIMES A DAY APPLY TO AFFECTED AREA(S) THREE TIMES A DAY SOLD: 05/01/2021 [facility] Nystatin 100 UNT/MG Topical Powder 100,000 unit/gram NYSTATI N 04/03/2021 12:00:00 AM EDT powder 15 APPLY TO AFFECTED AREA(S) THREE TIMES A DAY APPLY TO AFFECTED AREA(S) THREE TIMES A DAY SOLD: 07/05/2021 [facility] carvedilol 6.25 MG Oral Tablet CARVEDILOL 02/03/2021 12:00:00 AM EDT tablet 30 TAKE ONE TABLET BY MOUTH EVERY DAY TAKE ONE TABLET BY MOUTH EVERY DAY SOLD: 02/13/2021 [facility] carvedilol 6.25 MG Oral Tablet CARVEDILOL 02/03/2021 12:00:00 AM EDT tablet 30 TAKE ONE TABLET BY MOUTH EVERY DAY TAKE ONE TABLET BY MOUTH EVERY DAY SOLD: 06/11/2021 [facility] carvedilol 6.25 MG Oral Tablet CARVEDILOL 02/03/2021 12:00:00 AM EDT tablet 30 TAKE ONE TABLET BY MOUTH EVERY DAY TAKE ONE TABLET BY MOUTH EVERY DAY SOLD: 05/12/2021 [facility] Famotidine 20 MG Oral Tablet FAMOTIDINE 02/03/2021 12:00:00 AM EDT tab let 60 TAKE ONE TABLET BY MOUTH TWICE A DAY TAKE ONE TABLET BY MOUTH TWICE A DAY SOLD: 04/12/2021 [facility] Famotidine 20 MG Oral Tablet FAMOTIDINE 02/03/2021 12:00:00 AM EDT tab let 60 TAKE ONE TABLET BY MOUTH TWICE A DAY TAKE ONE TABLET BY MOUTH TWICE A DAY SOLD: 03/17/2021 [facility] carvedilol 6.25 MG Oral Tablet CARVEDILOL 02/03/2021 12:00:00 AM EDT tablet 30 TAKE ONE TABLET BY MOUTH EVERY DAY TAKE ONE TABLET BY MOUTH EVERY DAY SOLD: 04/12/2021 [facility] carvedilol 6.25 MG Oral Tablet CARVEDILOL 02/03/2021 12:00:00 AM EDT tablet 30 TAKE ONE TABLET BY MOUTH EVERY DAY TAKE ONE TABLET BY MOUTH EVERY DAY SOLD: 03/17/2021 [facility] Famotidine 20 MG Oral Tablet FAMOTIDINE 02/03/2021 12:00:00 AM EDT tab let 60 TAKE ONE TABLET BY MOUTH TWICE A DAY TAKE ONE TABLET BY MOUTH TWICE A DAY SOLD: 02/13/2021 [facility] 800 mg 01/27/2021 12:00:00 AM EDT tablet 360 TAKE 2 TABLETS BY MOUTH WITH BREAKFAST, LUNCH, AND DINNER TAKE 2 TABLETS BY MOUTH WITH BREAKFAST, LUNCH, AND DINNER SOLD: 02/13/2021 [facility] 800 mg 01/27/2021 12:00:00 AM EDT tablet 180 TAKE 2 TABLETS BY MOUTH WITH BREAKFAST, LUNCH, AND DINNER TAKE 2 TABLETS BY MOUTH WITH BREAKFAST, LUNCH, AND DINNER SOLD: 04/14/2021 [facility] 800 mg 01/27/2021 12:00:00 AM EDT tablet 180 TAKE 2 TABLETS BY MOUTH WITH BREAKFAST, LUNCH, AND DINNER TAKE 2 TABLETS BY MOUTH WITH BREAKFAST, LUNCH, AND DINNER SOLD: 05/12/2021 [facility] 250 mg 01/14/2021 12:00:00 AM EDT tablet 3 TAKE ONE TABLET BY MOUTH EVERY OTHER DAY TAKE ONE TABLET BY MOUTH EVERY OTHER DAY SOLD: 01/15/2021 [facility] 50 mg 01/14/2021 12:00:00 AM EDT tablet 30 TAKE ONE TABLET BY MOUTH EVERY 6 HOURS NEEDED MAXIMUM DAILY DOSE = 4 TAKE ONE TABLET BY MOUTH EVERY 6 HOURS A S NEEDED MAXIMUM DAILY DOSE = 4 SOLD: 01/15/2021 [facility] 0.25 mg 01/09/2021 12:00:00 AM EDT tablet,disintegrating [address] ONE TABLET UNDER THE TONGUE TWICE A DAY MAXIMUM DAILY DOSE = 2 PLACE ONE TABLET UNDER THE TONGUE TWICE A DAY MAXIMUM DAILY DOSE = 2 SOLD: 01/15/2021 [facility] 100 mg 12/27/2020 12:00:00 AM EDT capsule 180 TAKE TWO CAPSULES BY MOUTH THREE TIMES A DAY TAKE TWO CAPSULES BY MOUTH THREE TIMES A DAY SOLD: [facility] 100 mg 12/27/2020 12:00:00 AM EDT capsule 180 TAKE TWO CAPSULES BY MOUTH THREE TIMES A DAY TAKE TWO CAPSULES BY MOUTH THREE TIMES A DAY SOLD: [facility] 100 mg 12/27/2020 12:00:00 AM EDT capsule 180 TAKE TWO CAPSULES BY MOUTH THREE TIMES A DAY TAKE TWO CAPSULES BY MOUTH THREE TIMES A DAY SOLD: [facility] 10 mg 12/18/2020 12:00:00 AM EDT tablet 30 TAKE ONE TABLET BY MOUTH EVERY DAY TAKE ONE TABLET BY MOUTH EVERY DAY SOLD: 05/12/2021 [facility] 10 mg 12/18/2020 12:00:00 AM EDT tablet 30 TAKE ONE TABLET BY MOUTH EVERY DAY TAKE ONE TABLET BY MOUTH EVERY DAY SOLD: 04/12/2021 [facility] 8.4 gram 12/18/2020 12:00:00 AM EDT powder in packet 30 MIX 1 PACKET IN HALF A GLASS OF WATER AND DRINK 4 DAYS A WEEK (ON ALL NON-DIALYSIS DAYS) MIX 1 PACKET IN HALF A GLASS OF WATER AND DRINK 4 DAYS A WEEK (ON ALL NON-DIALYSIS DAYS) SOLD: 12/23/2020 [facility] 10 mg 12/18/2020 12:00:00 AM EDT tablet 30 TAKE ONE TABLET BY MOUTH EVERY DAY TAKE ONE TABLET BY MOUTH EVERY DAY SOLD: 03/17/2021 [facility] 10 mg 12/18/2020 12:00:00 AM EDT tablet 30 TAKE ONE TABLET BY MOUTH EVERY DAY TAKE ONE TABLET BY MOUTH EVERY DAY SOLD: 01/15/2021 [facility] 8.4 gram 12/18/2020 12:00:00 AM EDT powder in packet 30 MIX 1 PACKET IN HALF A GLASS OF WATER AND DRINK 4 DAYS A WEEK (ON ALL NON-DIALYSIS DAYS) MIX 1 PACKET IN HALF A GLASS OF WATER AND DRINK 4 DAYS A WEEK (ON ALL NON-DIALYSIS DAYS) SOLD: 04/12/2021 [facility] 10 mg 12/18/2020 12:00:00 AM EDT tablet 30 TAKE ONE TABLET BY MOUTH EVERY DAY TAKE ONE TABLET BY MOUTH EVERY DAY SOLD: 06/11/2021 [facility] 10 mg 12/18/2020 12:00:00 AM EDT tablet 30 TAKE ONE TABLET BY MOUTH EVERY DAY TAKE ONE TABLET BY MOUTH EVERY DAY SOLD: 02/13/2021 [facility] 8.4 gram 12/18/2020 12:00:00 AM EDT powder in packet 30 MIX 1 PACKET IN HALF A GLASS OF WATER AND DRINK 4 DAYS A WEEK (ON ALL NON-DIALYSIS DAYS) MIX 1 PACKET IN HALF A GLASS OF WATER AND DRINK 4 DAYS A WEEK (ON ALL NON-DIALYSIS DAYS) SOLD: 02/13/2021 [facility] 0.25 mg 12/11/2020 12:00:00 AM EST tablet,disintegrating [address] ONE TABLET UNDER THE TONGUE TWICE A DAY MAXIMUM DAILY DOSE = 2 PLACE ONE TABLET UNDER THE TONGUE TWICE A DAY MAXIMUM DAILY DOSE = 2 SOLD: 12/11/2020 [facility] 80 mg 11/24/2020 12:00:00 AM EST tablet 60 TAKE ONE TABLET BY MOUTH TWICE A DAY TAKE ONE TABLET BY MOUTH TWICE A DAY SOLD: 04/12/2021 [facility] 80 mg 11/24/2020 12:00:00 AM EST tablet 60 TAKE ONE TABLET BY MOUTH TWICE A DAY TAKE ONE TABLET BY MOUTH TWICE A DAY SOLD: 05/12/2021 [facility] 80 mg 11/24/2020 12:00:00 AM EST tablet 60 TAKE ONE TABLET BY MOUTH TWICE A DAY TAKE ONE TABLET BY MOUTH TWICE A DAY SOLD: 01/15/2021 [facility] 80 mg 11/24/2020 12:00:00 AM EST tablet 60 TAKE ONE TABLET BY MOUTH TWICE A DAY TAKE ONE TABLET BY MOUTH TWICE A DAY SOLD: 03/17/2021 [facility] 80 mg 11/24/2020 12:00:00 AM EST tablet 60 TAKE ONE TABLET BY MOUTH TWICE A DAY TAKE ONE TABLET BY MOUTH TWICE A DAY SOLD: 11/28/2020 [facility] 80 mg 11/24/2020 12:00:00 AM EST tablet 60 TAKE ONE TABLET BY MOUTH TWICE A DAY TAKE ONE TABLET BY MOUTH TWICE A DAY SOLD: 06/11/2021 [facility] 80 mg 11/24/2020 12:00:00 AM EST tablet 60 TAKE ONE TABLET BY MOUTH TWICE A DAY TAKE ONE TABLET BY MOUTH TWICE A DAY SOLD: 02/13/2021 [facility] 8.4 gram 11/23/2020 12:00:00 AM EST powder in packet 12 MIX 1 PACKET IN A HALF A GLASS OF WATER AND DRINK TWICE WEEKLY ON SUNDAYS AND TUESDAYS MIX 1 PACKET IN A HALF A GLASS OF WATER AND DRINK TWICE WEEKLY ON SUNDAYS AND TUESDAYS SOLD: 11/28/2020 [facility] 250 mg 10/30/2020 12:00:00 AM EST tablet 6 TAKE ONE TABLET BY MOUTH EVERY 12 HOURS FOR 3 DAYS TAKE ONE TABLET BY MOUTH EVERY 12 HOURS FOR 3 DAYS LONG [facility] Sulfamethoxazole 400 MG / Trimethoprim 80 MG Oral Tabl et 400-80 mg SULFAMETHOXAZOLE/TRIMETHOPRIM 10/17/2020 12:00:00 AM EST tablet 30 TAKE ONE TABLET BY MOUTH EVERY DAY TAKE ONE TABLET BY MOUTH EVERY DAY SOLD: 12/23/2020 [facility] Sulfamethoxazole 400 MG / Trimethoprim 80 MG Oral Tabl et 400-80 mg SULFAMETHOXAZOLE/TRIMETHOPRIM 10/17/2020 12:00:00 AM EST tablet 30 TAKE ONE TABLET BY MOUTH EVERY DAY TAKE ONE TABLET BY MOUTH EVERY DAY SOLD: 11/28/2020 [facility] Sulfamethoxazole 400 MG / Trimethoprim 80 MG Oral Tabl et 400-80 mg SULFAMETHOXAZOLE/TRIMETHOPRIM 10/17/2020 12:00:00 AM EST tablet 30 TAKE ONE TABLET BY MOUTH EVERY DAY TAKE ONE TABLET BY MOUTH EVERY DAY SOLD: 04/03/2021 [facility] Sulfamethoxazole 400 MG / Trimethoprim 80 MG Oral Tabl et 400-80 mg SULFAMETHOXAZOLE/TRIMETHOPRIM 10/17/2020 12:00:00 AM EST tablet 30 TAKE ONE TABLET BY MOUTH EVERY DAY TAKE ONE TABLET BY MOUTH EVERY DAY SOLD: 10/29/2020 [facility] Sulfamethoxazole 400 MG / Trimethoprim 80 MG Oral Tabl et 400-80 mg SULFAMETHOXAZOLE/TRIMETHOPRIM 10/17/2020 12:00:00 AM EST tablet 30 TAKE ONE TABLET BY MOUTH EVERY DAY TAKE ONE TABLET BY MOUTH EVERY DAY SOLD: 03/06/2021 [facility] Sulfamethoxazole 400 MG / Trimethoprim 80 MG Oral Tabl et 400-80 mg SULFAMETHOXAZOLE/TRIMETHOPRIM 10/17/2020 12:00:00 AM EST tablet 30 TAKE ONE TABLET BY MOUTH EVERY DAY TAKE ONE TABLET BY MOUTH EVERY DAY SOLD: 01/26/2021 [facility] 30 mg 10/15/2020 12:00:00 AM EST capsule,delayed release (DR/EC) 30 TAKE ONE CAPSULE BY MOUTH EVERY DAY TAKE ONE CAPSULE BY MOUTH EVERY DAY SOLD: 03/17/2021 [facility] 30 mg 10/15/2020 12:00:00 AM EST capsule,delayed release (DR/EC) 30 TAKE ONE CAPSULE BY MOUTH EVERY DAY TAKE ONE CAPSULE BY MOUTH EVERY DAY SOLD: 01/15/2021 [facility] 30 mg 10/15/2020 12:00:00 AM EST capsule,delayed release (DR/EC) 30 TAKE ONE CAPSULE BY MOUTH EVERY DAY TAKE ONE CAPSULE BY MOUTH EVERY DAY SOLD: 10/29/2020 [facility] 30 mg 10/15/2020 12:00:00 AM EST capsule,delayed release (DR/EC) 30 TAKE ONE CAPSULE BY MOUTH EVERY DAY TAKE ONE CAPSULE BY MOUTH EVERY DAY SOLD: 02/13/2021 [facility] 17 gram/dose 10/15/2020 12:00:00 AM EST powder 510 USE 17 GRAMS BY MOUTH ONCE DAILY NEEDED FOR CONSITPATION USE 17 GRAMS BY MOUTH ONCE DAILY NEED ED FOR CONSITPATION SOLD: 10/29/2020 [facility] 30 mg 10/15/2020 12:00:00 AM EST capsule,delayed release (DR/EC) 30 TAKE ONE CAPSULE BY MOUTH EVERY DAY TAKE ONE CAPSULE BY MOUTH EVERY DAY SOLD: 11/28/2020 [facility] 30 mg 10/15/2020 12:00:00 AM EST capsule,delayed release (DR/EC) 30 TAKE ONE CAPSULE BY MOUTH EVERY DAY TAKE ONE CAPSULE BY MOUTH EVERY DAY SOLD: 04/12/2021 [facility] 75 mg 10/14/2020 12:00:00 AM EST tablet 30 TAKE ONE TABLET BY MOUTH EVERY DAY TAKE ONE TABLET BY MOUTH EVERY DAY SOLD: 01/15/2021 [facility] 75 mg 10/14/2020 12:00:00 AM EST tablet 30 TAKE ONE TABLET BY MOUTH EVERY DAY TAKE ONE TABLET BY MOUTH EVERY DAY SOLD: 03/17/2021 [facility] 75 mg 10/14/2020 12:00:00 AM EST tablet 30 TAKE ONE TABLET BY MOUTH EVERY DAY TAKE ONE TABLET BY MOUTH EVERY DAY SOLD: 11/28/2020 [facility] 75 mg 10/14/2020 12:00:00 AM EST tablet 30 TAKE ONE TABLET BY MOUTH EVERY DAY TAKE ONE TABLET BY MOUTH EVERY DAY SOLD: 06/11/2021 [facility] 75 mg 10/14/2020 12:00:00 AM EST tablet 30 TAKE ONE TABLET BY MOUTH EVERY DAY TAKE ONE TABLET BY MOUTH EVERY DAY SOLD: 10/29/2020 [facility] Famotidine 20 MG Oral Tablet FAMOTIDINE 10/14/2020 12:00:00 AM EST tab let 60 TAKE ONE TABLET BY MOUTH TWICE A DAY TAKE ONE TABLET BY MOUTH TWICE A DAY SOLD: 11/28/2020 [facility] Famotidine 20 MG Oral Tablet FAMOTIDINE 10/14/2020 12:00:00 AM EST tab let 60 TAKE ONE TABLET BY MOUTH TWICE A DAY TAKE ONE TABLET BY MOUTH TWICE A DAY SOLD: 10/29/2020 [facility] 75 mg 10/14/2020 12:00:00 AM EST tablet 30 TAKE ONE TABLET BY MOUTH EVERY DAY TAKE ONE TABLET BY MOUTH EVERY DAY SOLD: 05/12/2021 [facility] 75 mg 10/14/2020 12:00:00 AM EST tablet 30 TAKE ONE TABLET BY MOUTH EVERY DAY TAKE ONE TABLET BY MOUTH EVERY DAY SOLD: 04/12/2021 [facility] 75 mg 10/14/2020 12:00:00 AM EST tablet 30 TAKE ONE TABLET BY MOUTH EVERY DAY TAKE ONE TABLET BY MOUTH EVERY DAY SOLD: 02/13/2021 [facility] 20 mg 10/14/2020 12:00:00 AM EST tablet 60 TAKE ONE TABLET BY MOUTH TWICE A DAY TAKE ONE TABLET BY MOUTH TWICE A DAY SOLD: 01/15/2021 [facility] 8.4 gram 09/18/2020 12:00:00 AM EST powder in packet 12 MIX 1 PACKET TWICE WEEKLY ON SUNDAYS AND TUESDAYS IN A HALF A GLASS OF WATER AND DRINK MIX 1 PACKET TWICE WEEKLY ON SUNDAYS AND TUESDAYS IN A HALF A GLASS OF WATER AND DRINK SOLD: 09/19/2020 [facility] 8.4 gram 09/18/2020 12:00:00 AM EST powder in packet 8 MIX 1 PACKET TWICE WEEKLY ON SUNDAYS AND TUESDAYS IN A HALF A GLASS OF WATER AND DRINK MIX 1 PACKET TWICE WEEKLY ON SUNDAYS AND TUESDAYS IN A HALF A GLASS OF WATER AND DRINK SOLD: 10/29/2020 [facility] 800 mg 09/18/2020 12:00:00 AM EST tablet 360 TAKE 2 TABLETS BY MOUTH WITH BREAKFAST, LUNCH, AND DINNER (TOTAL 6 TABLETS IN A DAY) TAKE 2 TABLETS BY MOUTH WITH BREAKFAST, LUNCH, AND DINNER (TOTAL 6 TABLETS IN A DAY) SOLD: 09/19/2020 [facility] 800 mg 09/18/2020 12:00:00 AM EST tablet 360 TAKE 2 TABLETS BY MOUTH WITH BREAKFAST, LUNCH, AND DINNER (TOTAL 6 TABLETS IN A DAY) TAKE 2 TABLETS BY MOUTH WITH BREAKFAST, LUNCH, AND DINNER (TOTAL 6 TABLETS IN A DAY) SOLD: 11/28/2020 [facility] atorvastatin 40 MG Oral Tablet ATORVASTATIN CALCIUM 08/31/2020 1 2:00:00 AM EST tablet 30 TAKE ONE TABLET BY MOUTH EVERY D AY TAKE ONE TABLET BY MOUTH EVERY DAY SOLD: 03/17/2021 [facility] atorvastatin 40 MG Oral Tablet ATORVASTATIN CALCIUM 08/31/2020 1 2:00:00 AM EST tablet 30 TAKE ONE TABLET BY MOUTH EVERY D AY TAKE ONE TABLET BY MOUTH EVERY DAY SOLD: 01/15/2021 [facility] atorvastatin 40 MG Oral Tablet ATORVASTATIN CALCIUM 08/31/2020 1 2:00:00 AM EST tablet 30 TAKE ONE TABLET BY MOUTH EVERY D AY TAKE ONE TABLET BY MOUTH EVERY DAY SOLD: 10/29/2020 [facility] atorvastatin 40 MG Oral Tablet ATORVASTATIN CALCIUM 08/31/2020 1 2:00:00 AM EST tablet 30 TAKE ONE TABLET BY MOUTH EVERY D AY TAKE ONE TABLET BY MOUTH EVERY DAY SOLD: 02/13/2021 [facility] atorvastatin 40 MG Oral Tablet ATORVASTATIN CALCIUM 08/31/2020 1 2:00:00 AM EST tablet 30 TAKE ONE TABLET BY MOUTH EVERY D AY TAKE ONE TABLET BY MOUTH EVERY DAY SOLD: 09/19/2020 [facility] atorvastatin 40 MG Oral Tablet ATORVASTATIN CALCIUM 08/31/2020 1 2:00:00 AM EST tablet 30 TAKE ONE TABLET BY MOUTH EVERY D AY TAKE ONE TABLET BY MOUTH EVERY DAY SOLD: 11/28/2020 [facility] 100 mg 06/28/2020 12:00:00 AM EDT capsule 540 TAKE TWO CAPSULES BY MOUTH THREE TIMES A DAY TAKE TWO CAPSULES BY MOUTH THREE TIMES A DAY SOLD: 0 [facility] 100 mg 06/28/2020 12:00:00 AM EDT capsule 540 TAKE TWO CAPSULES BY MOUTH THREE TIMES A DAY TAKE TWO CAPSULES BY MOUTH THREE TIMES A DAY SOLD: 1 [facility] carvedilol 6.25 MG Oral Tablet CARVEDILOL 06/26/2020 12:00:00 AM EDT tablet 30 TAKE ONE TABLET BY MOUTH EVERY DAY TAKE ONE TABLET BY MOUTH EVERY DAY SOLD: 09/19/2020 [facility] carvedilol 6.25 MG Oral Tablet CARVEDILOL 06/26/2020 12:00:00 AM EDT tablet 30 TAKE ONE TABLET BY MOUTH EVERY DAY TAKE ONE TABLET BY MOUTH EVERY DAY SOLD: 10/29/2020 [facility] carvedilol 6.25 MG Oral Tablet CARVEDILOL 06/26/2020 12:00:00 AM EDT tablet 30 TAKE ONE TABLET BY MOUTH EVERY DAY TAKE ONE TABLET BY MOUTH EVERY DAY SOLD: 08/06/2020 [facility] carvedilol 6.25 MG Oral Tablet CARVEDILOL 06/26/2020 12:00:00 AM EDT tablet 30 TAKE ONE TABLET BY MOUTH EVERY DAY TAKE ONE TABLET BY MOUTH EVERY DAY SOLD: 07/09/2020 [facility] carvedilol 6.25 MG Oral Tablet CARVEDILOL 06/26/2020 12:00:00 AM EDT tablet 30 TAKE ONE TABLET BY MOUTH EVERY DAY TAKE ONE TABLET BY MOUTH EVERY DAY SOLD: 01/15/2021 [facility] carvedilol 6.25 MG Oral Tablet CARVEDILOL 06/26/2020 12:00:00 AM EDT tablet 30 TAKE ONE TABLET BY MOUTH EVERY DAY TAKE ONE TABLET BY MOUTH EVERY DAY SOLD: 11/28/2020 [facility] 10 mg 06/22/2020 12:00:00 AM EDT tablet 90 TAKE ONE TABLET BY MOUTH EVERY DAY TAKE ONE TABLET BY MOUTH EVERY DAY SOLD: 07/09/2020 [facility] 10 mg 06/22/2020 12:00:00 AM EDT tablet 90 TAKE ONE TABLET BY MOUTH EVERY DAY TAKE ONE TABLET BY MOUTH EVERY DAY SOLD: 10/10/2020 [facility] 80 mg 04/18/2020 12:00:00 AM EDT tablet 60 TAKE ONE TABLET BY MOUTH TWICE A DAY TAKE ONE TABLET BY MOUTH TWICE A DAY SOLD: 05/28/2020 [facility] 80 mg 04/18/2020 12:00:00 AM EDT tablet 60 TAKE ONE TABLET BY MOUTH TWICE A DAY TAKE ONE TABLET BY MOUTH TWICE A DAY SOLD: 08/06/2020 [facility] 80 mg 04/18/2020 12:00:00 AM EDT tablet 60 TAKE ONE TABLET BY MOUTH TWICE A DAY TAKE ONE TABLET BY MOUTH TWICE A DAY SOLD: 07/09/2020 [facility] 80 mg 04/18/2020 12:00:00 AM EDT tablet 60 TAKE ONE TABLET BY MOUTH TWICE A DAY TAKE ONE TABLET BY MOUTH TWICE A DAY SOLD: 09/19/2020 [facility] 80 mg 04/18/2020 12:00:00 AM EDT tablet 60 TAKE ONE TABLET BY MOUTH TWICE A DAY TAKE ONE TABLET BY MOUTH TWICE A DAY SOLD: 10/29/2020 [facility] Famotidine 20 MG Oral Tablet FAMOTIDINE 04/05/2020 12:00:00 AM EDT tab let 60 TAKE ONE TABLET BY MOUTH TWICE A DAY TAKE ONE TABLET BY MOUTH TWICE A DAY SOLD: 07/09/2020 [facility] 20 mg 04/05/2020 12:00:00 AM EDT tablet 60 TAKE ONE TABLET BY MOUTH TWICE A DAY TAKE ONE TABLET BY MOUTH TWICE A DAY SOLD: 09/19/2020 [facility] 20 mg 04/05/2020 12:00:00 AM EDT tablet 60 TAKE ONE TABLET BY MOUTH TWICE A DAY TAKE ONE TABLET BY MOUTH TWICE A DAY SOLD: 08/06/2020 [facility] Sulfamethoxazole 400 MG / Trimethoprim 80 MG Oral Tabl et 400-80 mg SULFAMETHOXAZOLE/TRIMETHOPRIM 03/26/2020 12:00:00 AM EDT tablet 30 TAKE ONE TABLET BY MOUTH EVERY DAY TAKE ONE TABLET BY MOUTH EVERY DAY SOLD: 09/19/2020 [facility] 400-80 mg 03/26/2020 12:00:00 AM EDT tablet 30 TAKE ONE TABLET BY MOUTH EVERY DAY TAKE ONE TABLET BY MOUTH EVERY DAY SOLD: 05/28/2020 [facility] Sulfamethoxazole 400 MG / Trimethoprim 80 MG Oral Tabl et 400-80 mg SULFAMETHOXAZOLE/TRIMETHOPRIM 03/26/2020 12:00:00 AM EDT tablet 30 TAKE ONE TABLET BY MOUTH EVERY DAY TAKE ONE TABLET BY MOUTH EVERY DAY SOLD: 08/06/2020 [facility] Sulfamethoxazole 400 MG / Trimethoprim 80 MG Oral Tabl et 400-80 mg SULFAMETHOXAZOLE/TRIMETHOPRIM 03/26/2020 12:00:00 AM EDT tablet 30 TAKE ONE TABLET BY MOUTH EVERY DAY TAKE ONE TABLET BY MOUTH EVERY DAY SOLD: 07/09/2020 [facility] Hydralazine Hydrochloride 25 MG Oral Tablet HYDRALAZINE HCL 03/22/2020 12:00:00 AM EDT tablet 60 TAKE ONE TABLET BY MOUTH TWI CE A DAY TAKE ONE TABLET BY MOUTH TWICE A DAY SOLD: 09/19/2020 [facility] 30 mg 03/22/2020 12:00:00 AM EDT capsule,delayed release (DR/EC) 90 TAKE ONE CAPSULE BY MOUTH EVERY DAY TAKE ONE CAPSULE BY MOUTH EVERY DAY SOLD: 07/09/2020 [facility] Hydralazine Hydrochloride 25 MG Oral Tablet HYDRALAZINE HCL 03/22/2020 12:00:00 AM EDT tablet 60 TAKE ONE TABLET BY MOUTH TWI CE A DAY TAKE ONE TABLET BY MOUTH TWICE A DAY SOLD: 07/09/2020 [facility] Hydralazine Hydrochloride 25 MG Oral Tablet HYDRALAZINE HCL 03/22/2020 12:00:00 AM EDT tablet 60 TAKE ONE TABLET BY MOUTH TWI CE A DAY TAKE ONE TABLET BY MOUTH TWICE A DAY SOLD: 08/06/2020 [facility] Hydralazine Hydrochloride 25 MG Oral Tablet HYDRALAZINE HCL 03/22/2020 12:00:00 AM EDT tablet 60 TAKE ONE TABLET BY MOUTH TWI CE A DAY TAKE ONE TABLET BY MOUTH TWICE A DAY SOLD: 05/28/2020 [facility] 40 mg 01/20/2020 12:00:00 AM EDT tablet 30 TAKE ONE TABLET BY MOUTH EVERY DAY TAKE ONE TABLET BY MOUTH EVERY DAY SOLD: 05/28/2020 [facility] atorvastatin 40 MG Oral Tablet ATORVASTATIN CALCIUM 01/20/2020 1 2:00:00 AM EDT tablet 30 TAKE ONE TABLET BY MOUTH EVERY D AY TAKE ONE TABLET BY MOUTH EVERY DAY SOLD: 07/09/2020 [facility] 50 mcg (2,000 unit) 01/13/2020 12:00:00 AM EDT capsule 90 TAKE ONE CAPSULE BY MOUTH EVERY DAY TAKE ONE CAPSULE BY MOUTH EVERY DAY SOLD: 07/09/2020 [facility] carvedilol 6.25 MG Oral Tablet CARVEDILOL 12/29/2019 12:00:00 AM EDT tablet 30 TAKE ONE TABLET BY MOUTH EVERY DAY TAKE ONE TABLET BY MOUTH EVERY DAY SOLD: 05/28/2020 [facility] 75 mg 09/13/2019 12:00:00 AM EST tablet 30 TAKE ONE TABLET BY MOUTH EVERY DAY TAKE ONE TABLET BY MOUTH EVERY DAY SOLD: 09/19/2020 [facility] 75 mg 09/13/2019 12:00:00 AM EST tablet 30 TAKE ONE TABLET BY MOUTH EVERY DAY TAKE ONE TABLET BY MOUTH EVERY DAY SOLD: 07/09/2020 [facility] 75 mg 09/13/2019 12:00:00 AM EST tablet 30 TAKE ONE TABLET BY MOUTH EVERY DAY TAKE ONE TABLET BY MOUTH EVERY DAY SOLD: 08/06/2020 [facility] 75 mg 09/13/2019 12:00:00 AM EST tablet 30 TAKE ONE TABLET BY MOUTH EVERY DAY TAKE ONE TABLET BY MOUTH EVERY DAY SOLD: 05/28/2020 [facility] Insurance Providers Payer name Policy type / Coverage type Policy ID Covered republican ID Covered republican's relationship to licea Policy Licea Plan Information MEDICARE [id number] Rianna [id number] MEDICARE [id number] xxxxxxxxxxx [id number] WELLCARE [id number] S [id number] AMER PROG TODAYS OPTIONS G [id number] Self [id number] TODAYS OPTION MEDICARE [id number] Rianna [id number] MEDICAID [id number] Self [id number] TODAYS OPTIONS [id number] SP [id number] MEDICAID [id number] [id number] MEDICAID [id number] Rianna [id number] [place] MEDICAID [id number] Rianna 7 [id number] TODAYS OPTIONS [id number] SP [id number] TODAYS OPTIONS [id number] SP [id number] MEDICAID [id number] S [id number] MEDICAID PROF FEES [id number] S [id number] WELLCARE [id number] S [id number] MEDICAID [id number] SP [id number] MEDICARE PART A -O/P [id number] 18 [id number] MEDICAID CO [id number] MEDICARE PART A [facility] [id number] 18 [id number] EDWIN [id number] SP [id number] MEDICAID [id number] S [id number] [facility] MEDICARE DIVISION [id number] S [id number] [place]ICARE - [place] [id number] S [id number] EDWIN [id number] SP [id number] WELLCARE [id number] SP [id number] TODAYS OPTIONS [id number] SP [id number] [facility] CARE MEDICAID [id number] S [id number] MEDICARE [id number] SP [id number] WELLCARE [id number] S [id number] [facility] CARE [id number] S [id number] MEDICAID PROF FEES [id number] S [id number] EDWIN [id number] SP [id number] MEDICARE [id number] SP [id number] [place] [id number] S [id number] TODAYS OPTIONS/DUTCH O [id number] S [id number] MEDICARE [id number] SP [id number] TODAYS OPTIONS [id number] SP [id number] TODAYS OPTIONS/DUTCH O [id number] S [id number] MEDICAID -O/P [id number] TODAYS OPTIONS -O/P [id number] 18 [id number] MEDICAID -I/P [id number] TODAYS OPTIONS -I/P [id number] 18 [id number] TODAYS OPTIONS -PHYSICIAN [id number] 18 [id number] INFO ONLY MEDICARE ADVANTAGE [id number] 18 [id number] MEDICAID -PHYSICIAN [id number] MEDICARE ADVANTAGE PLAN -PHYSICIAN [id number] DUTCH PROGRESSIVE MC [id number] S [id number] MEDICAID -RECURRING [id number] TODAYS OPTIONS -RECURRING [id number] 18 [id number] MEDICARE -O/P [id number] 18 [id number] MEDICARE -I/P [id number] 18 [id number] MEDICARE -O/P [id number] 18 [id number] MEDICARE -RECURRING [id number] 1 [id number] MEDICARE -RECURRING [id number] 18 [id number] MEDICARE [id number] S [id number] MEDICARE ADVANTAGE PLAN -I/P [id number] 18 [id number] MEDICAID [id number] S [id number] MEDICARE [id number] S [id number] MEDICAID [id number] S [id number] [place] [id number] SP [id number] MEDICARE [id number] SP [id number] E40 EMEDNY [id number] SP [id number] [id number] S [id number] MEDICARE [id number] S [id number] MEDICAID [id number] S [id number] TODAYS OPTIONS AMER PROG [id number] S [id number] MEDICARE C [id number] S [id number] Problems, Conditions, and Diagnoses Code Display Name Description Problem Type Effective Dates Data Source(s) Z95.1 Presence of aortocoronary bypass graft P RESENCE OF AORTOCORONARY BYPASS GRAFT Diagnosis 11/25/2020 01:13:00 AM [facility] zabrina Z87.440 Personal history of urinary (tract) infe ctions PERSONAL HISTORY OF URINARY (TRACT) INFECTIONS Diagnosis 11/25/2020 01:13:00 AM [facility] Z79.82 retirement (current) use of aspirin [facility] (CU RRENT) USE OF ASPIRIN Diagnosis 11/25/2020 01:13:00 AM [facility] Z79.02 retirement (current) use of antithromboti cs/antiplatelets [facility] (CURRENT) USE OF ANTITHROMBOTICS/ANTIPLATELETS Diagnosis 021 01:13:00 AM [facility] Z79.4 retirement (current) use of insulin [facility] (CU RRENT) USE OF INSULIN Diagnosis 11/25/2020 01:13:00 AM [facility] I25.10 Atherosclerotic heart diseas e of [place] coronary artery without angina pectoris ATHSCL HEART DISEASE OF [place] CORONARY ARTERY W/O ANG PCTRS Diagnosis 11/25/2020 01:13:00 AM [facility] I12.9 Hypertensive chronic kidney disease with stage 1 through stage 4 chronic kidney disease, or unspecified chronic kidney disease HYPERTENSIVE CHRONIC KIDNEY DISEASE W STG 1-4/UNSP CHR KDNY Diagnosis 11/25/2020 01:13:00 A M [facility] 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 TYPE 2 DIABETES MELLITUS W DIABETIC CHRONIC KIDNEY DISEASE Diagnosis 01:13:00 AM [facility] 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 Diagnosis 11/25/2020 01:13:00 AM [facility] N18.5 Chronic kidney disease, stage 5 CHRONIC KIDNEY DISEASE , STAGE 5 Diagnosis 11/25/2020 01:13:00 AM [facility] R74.8 Abnormal levels of other serum enzymes A BNORMAL LEVELS OF OTHER SERUM ENZYMES Diagnosis 11/25/2020 [facility] Right upper quadrant pain RIGHT UPPER QUADRANT PAIN Di agnosis 11/25/2020 01:13:00 AM [facility] N39.0 Urinary tract infection, site not specif ied URINARY TRACT INFECTION, SITE NOT SPECIFIED Diagnosis 11/19/2020 02:22[facility] End stage renal disease END STAGE RENAL DISEASE Diagno sis 11/19/2020 02:22:00 PM [facility] Z48.02 Encounter for removal of sutures ENCOUNTER FOR R EMOVAL OF SUTURES Diagnosis 08/28/2020 09:44:00 AM [facility] C44.612 Basal cell carcinoma of skin of right up per limb, including shoulder BASAL CELL CARCINOMA SKIN/ RIGHT UPPER LIMB, INC SHOULDER Diagnosis 08/08/2020 08:45:00 AM [facility] 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 Z79.4 [employer] (current) use of insulin [facility] (CU RRENT) USE OF INSULIN Diagnosis 07/09/2020 01:50:[address] [facility] Z95.1 Presence of aortocoronary bypass graft P RESENCE OF AORTOCORONARY BYPASS GRAFT Diagnosis 07/09/2020 01:50:00 PM [facility] I25.2 Old myocardial infarction OLD MYOCARDIAL INFARCTION Di agnosis 07/09/2020 01:50:[address] [facility] F41.9 Anxiety disorder, unspecified ANXIETY DISORDER, UNSPEC IFIED Diagnosis 07/09/2020 01:50:[address] [facility] M06.9 Rheumatoid arthritis, unspecified RHEUMATOID ART HRITIS, UNSPECIFIED Diagnosis 07/09/2020 01:50:[address] [facility] E78.5 Hyperlipidemia, unspecified HYPERLIPIDEMIA, UNSPECIFIE D Diagnosis 07/09/2020 01:50:[address] [facility] I12.0 Hypertensive chronic kidney disease with stage 5 chronic kidney disease or end stage renal disease HYP CHR KIDNEY DISEASE W STAGE 5 CHR KIDNEY DISEAS Diagnosis 07/09/2020 01:50:[address] 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 N18.6 End stage renal disease END STAGE RENAL DISEASE Diagno sis 07/09/2020 01:50:[address] [facility] D22.61 Melanocytic nevi of right upper limb, in cluding shoulder MELANOCYTIC NEVI OF RIGHT UPPER LIMB, INCLUDING SHOULDER Diagnosis 07/08/2020 08:13:00 AM [facility] D22.62 Melanocytic nevi of left upper limb, inc luding shoulder MELANOCYTIC NEVI OF LEFT UPPER LIMB, INCLUDING SHOULDER Diagnosis 07/08/2020 08:13:00 A M [facility] D47.2 Monoclonal gammopathy MONOCLONAL GAMMOPATHY Diagnosis 07/02/2020 10:54:00 AM [facility] R79.89 Other specified abnormal findings of blo od chemistry OTHER SPECIFIED ABNORMAL FINDINGS OF BLOOD CHEMISTRY Diagnosis 06/18/2020 01:20:[address] [facility] D48.5 Neoplasm of uncertain behavior of skin N EOPLASM OF UNCERTAIN BEHAVIOR OF SKIN Diagnosis 05/21/2020 10:45:00 AM [facility] Surgeries/Procedures Procedure Description Date Indications Data Source(s) EMERGENCY DEPARTMENT VISIT LOW/MODER SEVERITY 07/05/20 12:00:00 AM [facility] Non-covered item or service NON-COVERED ITEM OR SERVICE 04/03 12:00:00 AM [facility] URNLS DIP STICK/TABLET REAGENT AUTO MICROSCOPY URINALYSIS AU TO W/SCOPE 04/11/2021 12:00:00 AM [facility] BLOOD COUNT COMPLETE AUTO&AUTO DIFRNTL WBC COUNT COMPLETE CB C W/AUTO DIFF WBC 04/11/2021 12:00:00 AM [facility] COMPREHENSIVE METABOLIC PANEL COMPREHEN METABOLIC PANEL 06/2021 12:00:00 AM [facility] EMERGENCY DEPARTMENT VISIT MODERATE SEVERITY EMERGENCY DEPT VISIT 04/11/2021 12:00:00 AM [facility] CT ABDOMEN & PELVIS W/O CONTRAST MATERIAL CT ABD & PELVIS W/ O CONTRAST 11/25/2020 12:00:00 AM [facility] ECG ROUTINE ECG W/LEAST 12 LDS TRCG ONLY W/O I&R ELECTROCARD IOGRAM TRACING 11/25/2020 12:00:00 AM [facility] AMYLASE ASSAY OF AMYLASE 11/25/2020 12:00:00 AM [facility] LIPASE ASSAY OF LIPASE 11/25/2020 12:00:00 AM [facility] Infusion, normal saline solution , 1000 cc 11/25/2020 12:00:00 AM [facility] Injection, ondansetron hydrochloride, per 1 mg 021 12:00:00 AM [facility] THER PROPH/DX NJX IV PUSH SINGLE/1ST SBST/DRUG THER/PROPH/DI AG INJ IV PUSH 11/25/2020 12:00:00 AM [facility] IV INFUSION THERAPY/PROPHYLAXIS /DX 1ST TO 1 HR THER/PROPH/D IAG IV INF INIT 11/25/2020 12:00:00 AM [facility] EMERGENCY DEPT VISIT HIGH SEVERITY&THREAT FUNCJ EMERGENCY DE PT VISIT 11/25/2020 12:00:00 AM [facility] outpatient clinic visit for assessment and ma nagement of a patient Hospital Outpatient Clinic Visit 08/28/2020 12:00:00 AM [facility] REPAIR INTERMEDIATE S/A/T/E 7.6-12.5 CM INTMD RPR S/TR/EXT 7 .6-12.5 08/08/2020 12:00:00 AM [facility] EXCISION MALIGNANT LESION TRUNK/ARM/LEG >4.0 CM EXC TR-EXT M AL+AHNS >4 CM 08/08/2020 12:00:00 AM [facility] LEVEL IV SURG PATHOLOGY GROSS&MICROSCOPIC EXAM TISSUE EXAM B Y PATHOLOGIST 08/08/2020 12:00:00 AM [facility] SHAVING SKIN LESION 1 F/E/E/N/L/M DIAM >2.0 CM SHAVE SKIN LE GINA >2.0 CM 05/21/2020 12:00:00 AM EDT [facility] SHVG SKIN LESION 1 TRUNK/ARM/LEG DIAM >2.0 CM SHAVE SKIN LES ION >2.0 CM 05/21/2020 12:00:00 AM EDT [facility] Results ID Date Data Source [id number] 04/13/2021 03:28:00 PM EDT [facility] spital Procedure Performed By: [facility] [address] [place] [address] Director: Joseph Parmar MD . Mixed anival: Mixed anival, probable contamination. Name Value Range Interpretation Code Description Data Jessica rce(s) Supporting Document(s) ID Date Data Source [id number] 04/13/2021 12:16:00 PM EDT [facility] Procedure Performed By: [facility] [address] [place] [address] Director: Joseph Parmar MD . Name Value Range Interpretation Code Description Data Jessica rce(s) Supporting Document(s) Urine Culture Normal (applies to non-numeric re sults) [facility] ID Date Data Source [id number] 04/12/2021 12:47:00 AM T [facility] Name Value Range Interpretation Code Description Data Jessica rce(s) Supporting Document(s) Sodium 141 mmol/L 136-145 Normal (applies to non-numeric resul ts) [facility] Potassium 3.5-5.1 Normal (applies to non-numeric resul ts) [facility] Chloride 101 mmol/L 98-107 Normal (applies to non-numeric resul ts) [facility] Carbon Dioxide CO2 21-32 Normal (applies to non-numer ic results) [facility] Anion Gap 5.0-16.0 Normal (applies to non-numeric resul ts) [facility] BUN 13 mg/dL 7-18 Normal (applies to non-numeric results) [facility] Creatinine,Serum 0.7-1.2 Above high normal [facility] GFR 12 mL/min >60 Below low normal [facility] spital Glucose Level 147 mg/dL 60-99 Above high normal [facility] Reference range is only applicable when patient is fasting Note the following drug interference: Sulfasalazine Sulfapyridine Can see falsely depressed Can see falsely elevated result with up to 17% results with up to 11% decrease in measurement increase in measurement Recommend patients be collected for this test prior to administration of either drug. Calcium 8.5-10.1 Normal (applies to non-numeric resul ts) [facility] Bilirubin,Total 0.1-1.9 Normal (applies to non-numeric results) [facility] SGOT(AST) 16 U/L 15-37 Normal (applies to non-numeric resul ts) [facility] Note the following drug interference: Sulfasalazine Sulfapyridine Can see falsely depressed Can see falsely elevated result with up to 10% results with up to 10% decrease in measurement increase in measurement Recommend patients be collected for this test prior to administration of either drug. SGPT(ALT) 17 U/L 12-78 Normal (applies to non-numeric resul ts) [facility] Note the following drug interference: Sulfasalazine Sulfapyridine Can see falsely depressed Can see falsely elevated result with up to 29% results with up to 10% decrease in measurement increase in measurement Recommend patients be collected for this test prior to administration of either drug. Alkaline Phosphatase 62 U/L 38-126 Normal (applies to non-num yessenia results) [facility] can increase Alkaline Phosp le vels up to 2 times the normal adult value. Normal values for children and adolescents are 2 to 3 times the normal adult value. Total Protein 6.0-8.2 Normal (applies to non-numeric re sults) [facility] Albumin Level 3.4-5.0 Below low normal [facility] ID Date Data Source [id number] 04/12/2021 12:19:00 AM EDT [facility] Name Value Range Interpretation Code Description Data Jessica rce(s) Supporting Document(s) White Blood Count 3.5-10.5 Normal (applies to non-numeri c results) [facility] Red Blood Count 3.90-5.00 Below low normal [facility] Hemoglobin 12.0-15.5 Below low normal [facility] ospital Hematocrit 34.9-44.5 Below low normal [facility] Mean Corpuscular Volume 81.2-95.1 Above high normal [facility] Mean Corpuscular Hgb 25.6-32.2 Above high normal [facility] Mean Corpuscular Hgb Conc 32.0-36.0 Below low normal [facility] Red Cell Distribution Width 11.9-15.5 Normal (appli es to non-numeric results) [facility] Platelet Count 237 x10 3/uL 150-450 Normal (applies to non-numeric results) [facility] Mean Platelet Volume 9.4-12.4 Normal (applies to non-num yessenia results) [facility] Neutrophils% (Auto) 31.0-71.0 Normal (applies to non-nume alix results) [facility] Lymphocytes% (Auto) 20.0-55.0 Normal (applies to non-nume alix results) [facility] Monocytes% (Auto) 4.0-12.0 Above high normal [facility] Eosinophils% (Auto) 1.0-8.0 Normal (applies to non-nume alix results) [facility] Basophils% (Auto) 0.0-2.0 Normal (applies to non-numeri c results) [facility] Immature Granulocytes% (Auto) 0.0-2.0 Normal (brenda lies to non-numeric results) [facility] Neutrophils# (Auto) 1.50-6.20 Normal (applies to non-nume alix results) [facility] Lymphocytes# (Auto) 1.20-4.00 Normal (applies to non-nume alix results) [facility] Monocytes# (Auto) 0.00-0.90 Above high normal [facility] Eosinophils# (Auto) 0.00-0.50 Normal (applies to non-nume alix results) [facility] Basophils# (Auto) 0.00-0.20 Normal (applies to non-numeri c results) [facility] Immature Granulocytes# (Auto) 0.00-7.00 No rmal (applies to non-numeric results) [facility] Slide has been reviewed and findings con firmed by a technologist/pollution control technician. ID Date Data Source [id number] 04/12/2021 01:00:00 AM [facility] Collected By: Nurse Initials: lb Time Collected: 2336 Collected By: Nurse Initials: lb Time Collected: 2336 Name Value Range Interpretation Code Description Data Jessica rce(s) Supporting Document(s) Color,Urine Colorl-Dk Y Normal (applies to non-numeric res ults) [facility] Clarity,Urine Clear Normal (applies to non-numeric re sults) [facility] Specific [place],Urine 1.005-1.030 Normal (applies to non- numeric results) [facility] pH,Urine 5.0-8.0 [facility] Protein,Urine Negative [facility] becca Glucose,Urine Negative Normal (applies to non-numeric re sults) [facility] Ketones,Urine Negative Normal (applies to non-numeric re sults) [facility] Blood,Urine Negative [facility] l Bilirubin,Urine Negative Normal (applies to non-numeric results) [facility] Urobilinogen,Urine 0.2-1.0 Normal (applies to non-numer ic results) [facility] Leukocyte Esterase,Urine Negative [facility] Nitrite,Urine Negative Normal (applies to non-numeric re sults) [facility] ID Date Data Source [id number] 04/12/2021 01:01:00 AM [facility] Collected By: Nurse Initials: lb Time Collected: 2336 Collected By: Nurse Initials: lb Time Collected: 2336 Name Value Range Interpretation Code Description Data Jessica rce(s) Supporting Document(s) WBC,Urine None Seen [facility] Squamous Cells,Urine None Seen [facility] Bacteria,Urine None Seen [facility] ital ID Date Data Source [id number] 01/13/2021 12:55:00 PM [facility] Imaging Services Department Imaging Report [address] [place] [address] %(RAD)RES..mtdd.print.filter("line") Name: DEION JADE : 1940 Age/Sex: 81F Ordering Provider: DOM Hope Med Rec #: [id number] Reg Status: [facility] Room #: Date of Service: 01/12/21 Report Number: [id number] cc:PCP Unknown Send Report To: [id number] XRP/XR Humerus Lt Reason for exam: s/p fall pain and bruising Comparison: None. FINDINGS: No fracture, no destructive osseous abnormality. Mild acromioclavicular osteoarthritis. The elbow and glenohumeral joints are unremarkable. IMPRES GINA: No acute injury. Time portable performed: Fluoroscopy time in seconds: Number of Exposures: Contrast Agent in ml: Method of Administration: REPORT SIGNATURE ON FILE Reported By: Danny Tolentino MD <Electronically signed by Danny Tolentino MD> 01/14/21 1232 Dictation Date/Time: 01/12/21 1042 Transcribed Date/Time: 01/13/21 1255 Concrete Pump Operator Helper: JASPREET Name Value Range Interpretation Code Description Data Jessica rce(s) Supporting Document(s) ID Date Data Source [id number] 01/13/2021 06:59:00 AM EDT [facility] Imaging Services Department Imaging Report [address] [place] [address] %(RAD)RES..mtdd.print.filter("line") Name: DEION JADE : 1940 Age/Sex: 81F Ordering Provider: Yessica Silva M[employer] SPECIALIST Med Rec #: [id number] Reg Status: DEP ER Room #: Date of Service: 01/12/21 Report Number: [id number] cc:PCP Unknown Send Report To: [id number] XRP/XR Shoulder Lt Reason for exam: s/p fall pain and bruising Comparison: None. FINDINGS: There is no fracture or malalignment. Moderate acromioclavicular osteoarthritis. Glenohumeral joint is unremarkable. No soft tissue abnormality. IMPRESSION: No acute findings. Time portable performed: Fluoroscopy time in seconds: Number of Exposures: Contrast Agent in ml: Method of Administration: REPORT SIGNATURE ON FILE Reported By: Danny Tolentino MD <Electronically signed by Danny Tolentino MD> 01/13/21 1023 Dictation Date/Time: 01/12/21 1042 Transcribed Date/Time: 01/13/21 0659 Transcri ptionist: JASPREET Name Value Range Interpretation Code Description Data Jessica rce(s) Supporting Document(s) ID Date Data Source [id number] 11/25/2020 03:21:00 AM [facility] Imaging Services Department Imaging Report [address], [place] [address] %(RAD)RES..mtdd.print.filter("line") Name: DEION JADE : 1940 Age/Sex: 80F Ordering Provider: DEO Will Med Rec #: [id number] Reg Status: REG ER Room #: Date of Service: 11/25/20 Report Number: [id number] cc:Pablito Gillis NP; DEO Will Send Report To: EXAM: CT Abdomen and Pelvis Without IV contrast CLINICAL HISTORY: GH ruq abd pain TECHNIQUE: Axial computed tomography images of the abdomen and pelvis without intravenous contrast. / All CT scans at this facility use dose modulation, iterative reconstruction, and/or weight-based dosing when appropriate to reduce radiation dose to as low as reasonably achievable. CONTRAST: No IV contrast. COMPARISON: None provided. FINDINGS: LUNG BASES: Dense mitral valve calcification. Small bilateral pleural effusions. Interstitial thickening in the lower lungs. LIVER: Unremarkable. GALLBLADDER AND BILE DUCTS: The gallbladder appears within normal limits. No radioopaque gallstones are seen. No biliary ductal dilatation is evident. PANCREAS: Unremarkable. SPLEEN: Unremarkable. ADRENAL GLANDS: Unremarkable. KIDNEYS, URETERS, AND BLADDER: Atrophic kidneys. No hydronephrosis. STOMACH AND BOWEL: Mild colonic diverticulosis. APPENDIX: No evidence of acute appendicitis on CT examination. PERITONEUM: No free fluid. No free air. LYMPH NODES: No lymphadenopathy is evident. REPRODUCTIVE: Calcified uterine fibroid. VASCULATURE: No evidence of abdominal aortic aneurysm. BONES: No aggressive appearing osseous lesion. No acute osseous pathology evident.Impressions: Small bilateral pleural effusions. Interstitial thickening in the lower lungs suggesting mild pulmonary edema. Atrophic kidneys. No hydronephrosis. Mild colonic diverticulosis. Calcified uterine fibroid. Time portable performed: Fluoroscopy time in seconds: Number of Exposures: Contrast Agent in ml: Method of Administration: REPORT SIGNATURE ON FILE Reported By: Giles Michelle MD 11/25/20320 Dictation Date/Time: 11/25/20320 Transcribed Date/Time: 11/25/20320 Concrete Pump Operator Helper: Name Value Range Interpretation Code Description Data Jessica rce(s) Supporting Document(s) ID Date Data Source [id number] 11/25/2020 02:22:00 AM [facility] Name Value Range Interpretation Code Description Data Jessica rce(s) Supporting Document(s) Amylase 272 U/L 25-115 PH [facility] NUNU YEPEZ read back critical informatio n 11/25/20220 LAB.DYGJO ID Date Data Source [id number] 11/25/2020 02:22:00 AM EST [facility] Name Value Range Interpretation Code Description Data Jessica rce(s) Supporting Document(s) Sodium 137 mmol/L 136-145 Normal (applies to non-numeric resul ts) [facility] Potassium 3.5-5.1 PH [facility] NUNU YEPEZ read back critical informatio n 11/25/20219 LAB.DYGJO Chloride 101 mmol/L 98-107 Normal (applies to non-numeric resul ts) [facility] Carbon Dioxide CO2 21-32 Normal (applies to non-numer ic results) [facility] Anion Gap 5.0-16.0 Normal (applies to non-numeric resul ts) [facility] BUN 54 mg/dL 7-18 [facility] NUNU YEPEZ read back critical informatio n 11/25/20220 LAB.DYGJO Creatinine,Serum 0.7-1.2 Above high normal [facility] GFR 6 mL/min >60 Below low normal [facility] Glucose Level 210 mg/dL 60-99 Above high normal [facility] Reference range is only applicable when patient is fasting Note the following drug interference: Sulfasalazine Sulfapyridine Can see falsely depressed Can see falsely elevated result with up to 17% results with up to 11% decrease in measurement increase in measurement Recommend patients be collected for this test prior to administration of either drug. Calcium 8.5-10.1 Normal (applies to non-numeric resul ts) [facility] Bilirubin,Total 0.1-1.9 Normal (applies to non-numeric results) [facility] SGOT(AST) 13 U/L 15-37 Below low normal [facility] Note the following drug interference: Sulfasalazine Sulfapyridine Can see falsely depressed Can see falsely elevated result with up to 10% results with up to 10% decrease in measurement increase in measurement Recommend patients be collected for this test prior to administration of either drug. SGPT(ALT) 19 U/L 12-78 Normal (applies to non-numeric resul ts) [facility] Note the following drug interference: Sulfasalazine Sulfapyridine Can see falsely depressed Can see falsely elevated result with up to 29% results with up to 10% decrease in measurement increase in measurement Recommend patients be collected for this test prior to administration of either drug. Alkaline Phosphatase 112 U/L 38-126 Normal (applies to non-num yessenia results) [facility] can increase Alkaline Phosp le vels up to 2 times the normal adult value. Normal values for children and adolescents are 2 to 3 times the normal adult value. Total Protein 6.0-8.2 Normal (applies to non-numeric re sults) [facility] Albumin Level 3.4-5.0 Normal (applies to non-numeric re sults) [facility] ID Date Data Source [id number] 11/25/2020 02:22:00 AM [facility] Name Value Range Interpretation Code Description Data Jessica rce(s) Supporting Document(s) Lipase 336 U/L 73-393 Normal (applies to non-numeric resul ts) [facility] ID Date Data Source [id number] 11/25/2020 01:58:00 AM [facility] Name Value Range Interpretation Code Description Data Jessica rce(s) Supporting Document(s) White Blood Count 3.5-10.5 Above high normal [facility] Red Blood Count 3.90-5.00 Below low normal [facility] Hemoglobin 12.0-15.5 Below low normal [facility] ospital Hematocrit 34.9-44.5 Normal (applies to non-numeric resul ts) [facility] Mean Corpuscular Volume 81.2-95.1 Above high normal [facility] Mean Corpuscular Hgb 25.6-32.2 Above high normal [facility] Mean Corpuscular Hgb Conc 32.0-36.0 Below low normal [facility] Red Cell Distribution Width 11.9-15.5 Normal (appli es to non-numeric results) [facility] Platelet Count 235 x10 3/uL 150-450 Normal (applies to non-numeric results) [facility] Mean Platelet Volume 9.4-12.4 Normal (applies to non-num yessenia results) [facility] Neutrophils% (Auto) 31.0-71.0 Above high normal [facility] Lymphocytes% (Auto) 20.0-55.0 Below low normal [facility] Monocytes% (Auto) 4.0-12.0 Normal (applies to non-numeri c results) [facility] Eosinophils% (Auto) 1.0-8.0 Normal (applies to non-nume alix results) [facility] Basophils% (Auto) 0.0-2.0 Normal (applies to non-numeri c results) [facility] Immature Granulocytes% (Auto) 0.0-2.0 Normal (brenda lies to non-numeric results) [facility] Neutrophils# (Auto) 1.50-6.20 Above high normal [facility] Lymphocytes# (Auto) 1.20-4.00 Normal (applies to non-nume alix results) [facility] Monocytes# (Auto) 0.00-0.90 Above high normal [facility] Eosinophils# (Auto) 0.00-0.50 Normal (applies to non-nume alix results) [facility] Basophils# (Auto) 0.00-0.20 Normal (applies to non-numeri c results) [facility] Immature Granulocytes# (Auto) 0.00-7.00 No rmal (applies to non-numeric results) [facility] ID Date Data Source [id number] 11/23/2020 07:58:00 AM EST [facility] Procedure Performed By: [facility] [address] [place] [address] Director: Joseph Parmar MD . Name Value Range Interpretation Code Description Data Jessica rce(s) Supporting Document(s) Urine Culture Normal (applies to non-numeric re sults) [facility] ID Date Data Source [id number] 09/09/2020 02:44:00 PM EST [facility] Name Value Range Interpretation Code Description Data Jessica rce(s) Supporting Document(s) SARS coronavirus 2 RNA [Presence] in Res piratory specimen by SALMA with probe detection [facility] This lab was ordered by [facility] a nd reported by [facility]. ID Date Data Source [id number] 09/19/2020 04:05:00 PM EST [facility] Name Value Range Interpretation Code Description Data Jessica rce(s) Supporting Document(s) ID Date Data Source [id number] 07/08/2020 01:35:00 AM EDT [facility] Name Value Range Interpretation Code Description Data Jessica rce(s) Supporting Document(s) Erythropoietin (EPO) result 2.6 - 18.5 Norm al (applies to non-numeric results) [facility] Test Performed by: [facility] Elena coronado - [place] [address] [place] [address] Card Fixer: Samuel Pierce M.D. Ph.D.; CLIA# [id number] ID Date Data Source [id number] 07/08/2020 01:35:00 AM EDT [facility] Name Value Range Interpretation Code Description Data Jessica rce(s) Supporting Document(s) [place] Free Light Chain [facility] REFERENCE VALUE------ 0.3300-1.94 Lambda Free Light Chain [facility] REFERENCE VALUE------ 0.5700-2.63 [place]/Lambda FLC Ratio [facility] REFERENCE VALUE------ 0.2600-1.65 Test Performed by: [address] [place] [address] Card Fixer: Samuel Pierce M.D. Ph.D.; CLIA# [id number] ID Date Data Source [id number] 07/05/2020 12:50:00 PM [facility] Value Range Interpretation Code Description Data Jessica rce(s) Supporting Document(s) Erythropoietin (EPO) result 2.6 - 18.5 Norm al (applies to non-numeric results) [facility] Test Performed by: [facility] [place] [address] Card Fixer: Samuel Pierce M.D. Ph.D.; CLIA# [id number] ID Date Data Source [id number] 07/05/2020 12:50:00 PM EDT [facility] Value Range Interpretation Code Description Data Jessica rce(s) Supporting Document(s) [place] Free Light Chain Very abnormal (applies t o non-numeric units [facility] REFERENCE VALUE------ 0.3300-1.94 Lambda Free Light Chain Very abnormal (applies to non-numeric units [facility] REFERENCE VALUE------ 0.5700-2.63 [place]/Lambda FLC Ratio Very abnormal (applies t o non-numeric units [facility] REFERENCE VALUE------ 0.2600-1.65 Test Performed by: [place] [address] Card Fixer: Samuel Pierce M.D. Ph.D.; CLIA# [id number] ID Date Data Source [id number] 07/02/2020 09:20:00 PM EDT [facility] Name Value Range Interpretation Code Description Data Jessica rce(s) Supporting Document(s) FESAT Iron result 79 ug/dL 37-170 Normal (applies to non-numeri c results) [facility] Test Performed By: [facility] [address] [place] [address] Director: Radha Parmar MD FESAT TIBC result 245 ug/dL 265-497 [place] [facility]spital Test Performed By: [facility] [address] [place] [address] Director: Radha Parmar MD FESAT %Iron Saturation result 12.0-55.0 No rmal (applies to non-numeric results) [facility] Test Performed By: [facility] [address] [place] [address] Director: Radha Parmar MD ID Date Data Source [id number] 07/02/2020 09:20:00 PM EDT [facility] Name Value Range Interpretation Code Description Data Jessica rce(s) Supporting Document(s) LDH result 238 U/L 84-246 Normal (applies to non-numeric resul ts) [facility] Test Performed By: [facility] [address] [place] [address] Director: Radha Parmar MD ID Date Data Source [id number] 07/02/2020 06:34:00 PM EDT [facility] Value Range Interpretation Code Description Data Jessica rce(s) Supporting Document(s) Iron FE Level 79 ug/dL 37-170 Normal (applies to non-numeric re sults) [facility] Test Performed By: [facility] [address] [place] [address] Director: Radha Parmar MD Total Iron Binding Capacity 245 ug/dL 265-497 Below low normal [facility] Test Performed By: [facility] [address] [place] [address] Director: Radha Parmar MD %Iron Saturation 12.0-55.0 Normal (applies to non-numeric results) [facility] Test Performed By: [facility] [address] [place] [address] Director: Radha Parmar MD ID Date Data Source [id number] 07/02/2020 06:34:00 PM EDT [facility] Name Value Range Interpretation Code Description Data Jessica rce(s) Supporting Document(s) LDH 238 U/L 84-246 Normal (applies to non-numeric resul ts) [facility] Test Performed By: [facility] [address] [place] [address] Director: Radha Parmar MD ID Date Data Source [id number] 07/02/2020 12:43:00 PM EDT [facility] Name Value Range Interpretation Code Description Data Jessica rce(s) Supporting Document(s) Reticulocyte Count 0.50-1.81 Normal (applies to non-numer ic results) [facility] Slide has been reviewed and findings con firmed by a technologist/pollution control technician. ID Date Data Source [id number] 07/02/2020 12:43:00 PM EDT [facility] Name Value Range Interpretation Code Description Data Jessica rce(s) Supporting Document(s) White Blood Count 3.5-10.5 Normal (applies to non-numeri c results) [facility] Red Blood Count 3.90-5.00 Below low normal [facility] Hemoglobin 12.0-15.5 Below low normal [facility] ospital Hematocrit 34.9-44.5 Normal (applies to non-numeric resul ts) [facility] Mean Corpuscular Volume 81.2-95.1 Above high normal [facility] Mean Corpuscular Hgb 25.6-32.2 Above high normal [facility] Mean Corpuscular Hgb Conc 32.0-36.0 Normal (applies to no n-numeric results) [facility] Red Cell Distribution Width 11.9-15.5 Normal (appli es to non-numeric results) [facility] Platelet Count 255 x10 3/uL 150-450 Normal (applies to non-numeric results) [facility] Mean Platelet Volume 9.4-12.4 Normal (applies to non-num yessenia results) [facility] Neutrophils% (Auto) 31.0-71.0 Normal (applies to non-nume alix results) [facility] Lymphocytes% (Auto) 20.0-55.0 Normal (applies to non-nume alix results) [facility] Monocytes% (Auto) 4.0-12.0 Above high normal [facility] Eosinophils% (Auto) 1.0-8.0 Normal (applies to non-nume alix results) [facility] Basophils% (Auto) 0.0-2.0 Normal (applies to non-numeri c results) [facility] Immature Granulocytes% (Auto) 0.0-2.0 Normal (brenda lies to non-numeric results) [facility] Neutrophils# (Auto) 1.50-6.20 Normal (applies to non-nume alix results) [facility] Lymphocytes# (Auto) 1.20-4.00 Normal (applies to non-nume alix results) [facility] Monocytes# (Auto) 0.00-0.90 Above high normal [facility] Eosinophils# (Auto) 0.00-0.50 Normal (applies to non-nume alix results) [facility] Basophils# (Auto) 0.00-0.20 Normal (applies to non-numeri c results) [facility] Immature Granulocytes# (Auto) 0.00-7.00 No rmal (applies to non-numeric results) [facility] ID Date Data Source [id number] 07/02/2020 03:37:00 PM EDT [facility] Harish Parmar MD, Director PAGE [id number] [place] [address] [place] [id number] Name: DEION JADE [facility] Rec #: [id number]: 1940 Age/Sex: 80/F Attending Provider: Amauri Yoo MD Date of Service: 06/27/20 Location: [facility] CC: Amauri Yoo MD Specimen: [id number] Received: [id number] Status: MARKOS Madrigal Num: [id number] Collected: [id number] Sp Type: SURGICAL Subm Doc: Amauri Yoo MD Collected By: Amauri Yoo MD CLINICAL DIAGNOSIS C44.310, BCC. GROSS DESCRIPTION:Received in formalin labeled "Deion Jade and right jainism" is a single discoid fragmentof borden skin along with two smaller triangular shaped pieces of skin, aggregating to 1.4 x 1x 0.2 cm. The margins of the discoid piece of tissue are inked black. That piece is stepsectioned and entirely submitted in cassette 1. The triangular pieces are submitted incassette 2.sl/ MICROSCOPIC INTERPRETATION The patient has a recent history (ProPath accession ID: [id number]/Lab Reference ID:[id number]) of skin, right jainism area: basal cell carcinoma, nodular and sclerosing types.The patient now presents for wide excision (our [id number]). In this current wide excision,centrally, there are changes consistent with recent surgery including fibrosis andinflammation. Residual basal cell carcinoma is not identified. The lateral and deepresection margins are negative for malignancy.ss/sl FINAL DIAGNOSIS:Right jainism skin lesion excision: Excised surgical site with surgical site changes; no residual evidence of basal cellcarcinoma; with lateral and deep resection margins negative for malignancy.ss/sl(1) Signed (signature on file) Joseph aPrmar MD 07/02/20 1533 [facility] Radha Parmar MD, Director PAGE [id number] [place] [address] [place] [address] ------ ------ Name: DEION JADE [facility] Rec #: [id number]: 1940 Age/Sex: 80/F Attending Provider: Amauri Yoo MD Date of Service: 06/27/20 Location: [facility] CC: Amauri Yoo MD CONTINUED ON NEXT PAGE Name Value Range Interpretation Code Description Data [facility] rce(s) Supporting Document(s) ID Date Data Source [id number] 06/28/2020 08:05:00 AM EDT [facility] spital Procedure Performed By: [facility] Laboratory [address] [place] [address] Director: Joseph Parmar MD Mixed anival: Mixed anival, probable contamination. Name Value Range Interpretation Code Description Data [facility] rce(s) Supporting Document(s) ID Date Data Source [id number] 06/28/2020 07:44:00 AM EDT [facility] Procedure Performed By: [facility] [address] [place] [address] Director: Joseph Parmar MD Name Value Range Interpretation Code Description Data [facility] rce(s) Supporting Document(s) Urine Culture Normal (applies to non-numeric re sults) [facility] ID Date Data Source [id number] 06/25/2020 07:53:00 PM EDT [facility] Collected By: Nurse Initials: ZB Time Collected: 1902 Collected By: Nurse Initials: ZB Time Collected: 1902 Name Value Range Interpretation Code Description Data [facility] rce(s) Supporting Document(s) Color,Urine Colorl-Dk Y Normal (applies to non-numeric res ults) [facility] Clarity,Urine Clear Normal (applies to non-numeric re sults) [facility] Specific [place],Urine 1.005-1.030 Normal (applies to non- numeric results) [facility] pH,Urine 5.0-8.0 Normal (applies to non-numeric resul ts) [facility] Protein,Urine Negative [facility] Glucose,Urine Negative Normal (applies to non-numeric re sults) [facility] Ketones,Urine Negative Normal (applies to non-numeric re sults) [facility] Blood,Urine Negative [facility] Bilirubin,Urine Negative Normal (applies to non-numeric results) [facility] Urobilinogen,Urine 0.2-1.0 Normal (applies to non-numer ic results) [facility] Leukocyte Esterase,Urine Negative [facility] Nitrite,Urine Negative Normal (applies to non-numeric re sults) [facility] ID Date Data Source [id number] 06/25/2020 07:53:00 PM EDT [facility] Collected By: Nurse Initials: ZB Time Collected: 1902 Collected By: Nurse Initials: ZB Time Collected: 1902 Name Value Range Interpretation Code Description Data Jessica rce(s) Supporting Document(s) RBC,Urine None Seen [facility] WBC,Urine None Seen [facility] Casts,Urine None Seen Normal (applies to non-numeric resu lts) [facility] Epithelial Cells,Urine None - Few Normal (applies to non-n umeric results) [facility] Squamous Cells,Urine None Seen [facility] Bacteria,Urine None Seen [facility] ital ID Date Data Source [id number] 06/25/2020 07:05:00 PM EDT [facility] Name Value Range Interpretation Code Description Data Jessica rce(s) Supporting Document(s) White Blood Count 3.5-10.5 Normal (applies to non-numeri c results) [facility] Red Blood Count 3.90-5.00 Below low normal [facility] Hemoglobin 12.0-15.5 Below low normal [facility] ospital Hematocrit 34.9-44.5 Normal (applies to non-numeric resul ts) [facility] Mean Corpuscular Volume 81.2-95.1 Above high normal [facility] Mean Corpuscular Hgb 25.6-32.2 Above high normal [facility] Mean Corpuscular Hgb Conc 32.0-36.0 Below low normal [facility] Red Cell Distribution Width 11.9-15.5 Normal (appli es to non-numeric results) [facility] Platelet Count 266 x10 3/uL 150-450 Normal (applies to non-numeric results) [facility] Mean Platelet Volume 9.4-12.4 Normal (applies to non-num yessenia results) [facility] Total Cells Counted (Manual) 100 Normal (applies to non-numeric results) [facility] Neutrophils% (Manual) 57 % 31-71 Normal (applies to non-nu meric results) [facility] Lymphocytes% (Manual) 30 % 20-55 Normal (applies to non-nu meric results) [facility] Monocytes% (Manual) 11 % 4-12 Normal (applies to non-nume alix results) [facility] Eosinophils% (Manual) 2 % 1-8 Normal (applies to non-nu meric results) [facility] Platelet Estimate (Manual) Agreement Normal (applie s to non-numeric results) [facility] Slide Reviewed By Normal (applies to non-numeri c results) [facility] Slide has been reviewed and findings con firmed by a technologist/pollution control technician. ID Date Data Source [id number] 06/25/2020 06:39:00 PM EDT [facility] Name Value Range Interpretation Code Description Data Jessica rce(s) Supporting Document(s) Lipase 276 U/L 73-393 Normal (applies to non-numeric resul ts) [facility] ID Date Data Source [id number] 06/25/2020 06:39:00 PM [facility] Name Value Range Interpretation Code Description Data Jessica rce(s) Supporting Document(s) Amylase 111 U/L 25-115 Normal (applies to non-numeric resul ts) [facility] ID Date Data Source [id number] 06/25/2020 06:39:00 PM [facility] Name Value Range Interpretation Code Description Data Jessica rce(s) Supporting Document(s) Sodium 137 mmol/L 136-145 Normal (applies to non-numeric resul ts) [facility] Potassium 3.5-5.1 Normal (applies to non-numeric resul ts) [facility] Chloride 98 mmol/L 98-107 Normal (applies to non-numeric resul ts) [facility] Carbon Dioxide CO2 21-32 Normal (applies to non-numer ic results) [facility] Anion Gap 5.0-16.0 Normal (applies to non-numeric resul ts) [facility] BUN 28 mg/dL 7-18 Above high normal [facility] ospital Creatinine,Serum 0.7-1.2 Above high normal [facility] GFR 9 mL/min >60 Below low normal [facility] spital Glucose Level 144 mg/dL 60-99 Above high normal [facility] Reference range is only applicable when patient is fasting Note the following drug interference: Sulfasalazine Sulfapyridine Can see falsely depressed Can see falsely elevated result with up to 17% results with up to 11% decrease in measurement increase in measurement Recommend patients be collected for this test prior to administration of either drug. Calcium 8.5-10.1 Below low normal [facility] spital Bilirubin,Total 0.1-1.9 Normal (applies to non-numeric results) [facility] SGOT(AST) 22 U/L 15-37 Normal (applies to non-numeric resul ts) [facility] Note the following drug interference: Sulfasalazine Sulfapyridine Can see falsely depressed Can see falsely elevated result with up to 10% results with up to 10% decrease in measurement increase in measurement Recommend patients be collected for this test prior to administration of either drug. SGPT(ALT) 19 U/L 12-78 Normal (applies to non-numeric resul ts) [facility] Note the following drug interference: Sulfasalazine Sulfapyridine Can see falsely depressed Can see falsely elevated result with up to 29% results with up to 10% decrease in measurement increase in measurement Recommend patients be collected for this test prior to administration of either drug. Alkaline Phosphatase 112 U/L 38-126 Normal (applies to non-num yessenia results) [facility] can increase Alkaline Phosp le vels up to 2 times the normal adult value. Normal values for children and adolescents are 2 to 3 times the normal adult value. Total Protein 6.0-8.2 Normal (applies to non-numeric re sults) [facility] Albumin Level 3.4-5.0 Below low normal [facility] ID Date Data Source [id number] 06/25/2020 05:54:00 PM EDT [facility] Reference range: Negative for occult blood.06/25Negative Name Value Range Interpretation Code Description Data Jessica rce(s) Supporting Document(s) ID Date Data Source [id number] 06/26/2020 11:48:00 AM EDT [facility] Imaging Services Department Imaging Report [address] [address] %(RAD)RES..mtdd.print.filter("line") Name: DEION JADE : 1940 Age/Sex: 80F Ordering Provider: DEO Cruz Med Rec #: [id number] Reg Status: [facility] Room #: Date of Service: 06/25/20 Report Number: [id number] cc:Pablito Gillis NP Send Report To: [id number] CT/CT Abdomen & Pelvis No Contras Reason for exam: abdominal pain, melena Comparison is made to 10/17/2019 FINDINGS: Mitral valve calcifications again identified. Lower lung waldrop clear. Nonenhanced images of the liver unrem arkable. Gallbladder, pancreas and spleen within normal limits. Bilateral adrenal glands and kidneys unremarkable. No hydronephrosis. Ureters unremarkable. Nonobstructing 2 mm renal stones bilaterally. No aneurysmal dilatation to the aorta. Urinary bladder unremarkable. Uterus normal in size. Calcified fibroid. No adnexal mass. No bowel obstruction. Stool in the colon. Degenerative changes. IMPRESSION: Constipation. No obstruction. No bowel wall thickening. No free air or free fluid. While performing the above CT exam, the following dose reduction techniques wereused: *Automated exposure control *Adjustment of the mA and/or kV according to patient size *Use of iterative reconstruction technique CT Dose in mGy: Contrast Agent: Amount in ml: Method of Administration: REPORT SIGNATURE ON FILE Reported By: Alhaji Head, <Electronically signed by Alhaji Head DO> 06/27/20 1154 Dictation Date/Time: 06/25/207 Transcribed Date/Time: 06/26/20 1148 [employer]crete [employer] Operator Helper: NGUYỄN Name Value Range Interpretation Code Description Data Jessica rce(s) Supporting Document(s) ID Date Data Source [id number] 06/23/2020 11:09:00 PM EDT [facility] EDUARDO RocaSherman [address] [address] FOLLOW UP NOTENAME: DEION JADE APHYSICIAN: RONEL MASON MDDATE OF SERVICE: 06/18/20DATE OF : 36ACCOUNT #: [id number]: DEION JADEDate: Jun 18, 2020DOB: 1940Physician: Dr. Ronel Mason M.D.Age: 80Note Title: Hematology/Medical Oncology Follow UpDiagnosis:Primary - D47.2 - Monoclonal gammopathy, Diagnosed Jun 18, 2020 (Active)History of Problems:Problems / Chief Complaints:mgus?History of Present Illness:Patient is an 80-year-old femal e with history of hemodialysis secondary todiabetes. She is here today to discuss management of increasing total protein.It is unclear to me if the patient has evidence of MGUS, the monoclonalprotein testing that was done and sent to our facility does not show anyevidence of this. The patient is complete distracted today, she keeps statingthat she lost her wallet and it was stolen. The patient is hysterical crying,is unable to focus during conversation, will answer few questions here andthere but then goes back to being distraught over her wallet. Her facility wascalled, they last saw her while earlier in the morning. The patient's driverhas not seen her wallet. The patient would like to go home and find herwallet.Past Medical History:AnxietyDiabetesESRDHyperlipidemiaHypertensionMyocardial i nfarctionOsteoarthritisRheumatoid arthritisPast Surgical History:AppendectomyCABGCataract removalDialysis FistulaTonsillectomyAllergies:codeine, Penicillins, Rocephin, Sertraline HCl, and Sulfa Antibiotics.Current Medications:Aspirin 81 mg Tablet Oral daily (Start Date - unknown)Atorvastatin Calcium 40 mg Powder daily (Start Date - unknown)Bactrim DS Tablet Oral daily (Start Date - unknown)Clopidogrel Bisulfate 75 mg Tablet Oral daily (Start Date - unknown)DULoxetine HCl 30 mg Capsule Delayed Release Particles Oral daily (Start Date- unknown)Famotidine 20 mg Tablet Oral daily (Start Date - unknown)Furosemide 40 mg Tablet Oral daily (Start Date - unknown)Gabapentin 100 mg Capsule Oral b.i.d. (Start Date - unknown)Insulin Glargine 46 Units (of 100 Units/mL) Subcutaneous on ,,,White (StartDate - unknown)Lantus SoloStar 20 Units Subcutaneous on ,, (Start Date - unknown)MiraLax Pack Oral daily (Start Date - unknown)Ondansetron HCl 4 mg Tablet Oral 6x/d PRN (Start Date - unknown)Sensipar 30 mg Tablet Oral daily (Start Date - unknown)Velphoro 500 mg Tablet, chewable Oral b.i.d. (Start Date - unknown)Ventolin HFA 2 puff(s) Aerosol, solution Inhalation four times a day (StartDate - unknown)Vitamin D 25 mcg Tablet Oral daily (Start Date - unknown)hydrALAZINE HCl 25 mg Tablet Oral t.i.d. (Start Date - unknown)novolog Subcutaneous (Start Date - unknown)traMADol HCl 50 mg Tablet Oral four times a day (Start Date - unknown)Social History:Ms. JADE is .Family History:There is no documented family history.Review of Systems:ConstitutionalNormal - Denies lack of appetite, fatigue, fever, lethargy, malaise, nightsweats, rigors / chills and change in weight.Allergic/ImmunologicNormal - Denies allergies and adverse reactions.EyesNormal - Denies blurred vision, double vision, lacrimation, night blindness,visual difficulties and photophobia.ENMTNormal - Denies dysphagia, ear pain, epistaxis, esophagitis, problems withhearing, mouth dryness, oral bleeding, otitis, sinusitis, sputum production,stomatitis, altered taste and tinnitus.EndocrineNormal - Denies diabetes, hot flashes, menstrual irregularities and thyroiddisease.Hematologic/LymphaticNormal - Denies easy bruising and tender or enlarged lymph nodes.BreastsNormal - Denies breast masses, nipple discharge, nipple inversion and pain.RespiratoryNormal - Denies cough, dyspnea, hemoptysis, hiccoughs, pleuritic chest painand wheezing.Car diovascularNormal - Denies arrhythmias, chest pain, dyspnea, edema, orthopnea andpalpitations.GastrointestinalNormal - Denies abdominal pain, change in bowel habits, constipation,diarrhea, heartburn / dyspepsia, hematemesis, hematochezia, hemorrhoids, melena/ GI bleeding, nausea, pain / cramping, satiety and vomiting.Genitourinary (F)Normal - Denies dysuria, frequency, genital masses, hematuria, incontinence,nocturia, renal stone disease, problems with sexual function, urgency, urinecolor change, vaginal discharge / bleeding and vaginal spotting.MusculoskeletalNormal - Denies arthritis, bone pain, joint pain, muscle weakness anddecreased range of motion.IntegumentaryNormal - Denies alopecia, blistering, bruising, dry skin, facial burning, nailchanges, photosensitivity, pruritus, rash and urticaria.NeurologicNormal - Denies disorientation, dizziness, abnormal gait, headaches, insomnia,memory loss, motor weakness, sensory problems, paralysis, seizure and stroke.PsychiatricNormal - Denies delusions, hallucinations, mood swings, depression andeuphoria.Vital Signs:Performed on Jun 18, 2020 13:78Snubpkeaati68.6 TOiujs24 /agbGctnsnmkqfc03 /uguLP428/74Pulse Oximetry (O2 Sat)96 %Fall RiskModerate RiskPerformance Status:2 - Ambulatory/capable of all self-care, unable to perform any workactivities. Up and about more than 50% of waking hours. (ECOG)Physical Exam:ConstitutionalNormal - No evidence of impaired alertness, inadequate appearance, prematureor advanced chronologic age, uncooperativeness, developmental delays, alteredmood and affect and disorientation.HeadNormal - No evidence of alopecia, abnormal cephalic and scars.EyesNormal - No evidence of conjunctivitis, keratitis, hardening of the lens,nonreactive pupil(s), retinal abnormalities and scleral abnormalities.ENMTNormal - No evidence of ear abnormalities, oral abnormalities, nasalobstruction, oropharynx obstruction, sinusitis, throat abnormalities and tongueabnormalities.NeckNormal - No evidence of distension, tender or enlarged lymph nodes, neckabnormalities, restricted range of motion and enlarged thyroid gland.Hematologic/LymphaticNormal - No evidence of tender or enlarged axillae lymph nodes, tender orenlarged lymph nodes, tender or enlarged groin lymph nodes, tender or enlargedneck lymph nodes and petechiae / purpura / ecchymosis.RespiratoryNormal - No evidence of abnormal breath sounds, chest abnormalities onpalpation and chest abnormalities on percussion.CardiovascularNormal - No evidence of arterial pulse(s) abnormalities, abnormal heart rate,heart arrhythmia and abnormal heart sounds.ChestNormal - No evidence of chest abnormalities and tender or enlarged lymphnodes.BreastsNormal - No evidence of a breast mass(es), nipple discharge, nipple inversion,breast skin changes and asymmetry.AbdomenNormal - No evidence of abdominal abnormalities, abnormal bowel sounds,hepatomegaly and splenomegaly.GastrointestinalNormal - No evidence of anal and/or perineal abnormalities and rectalabnormalities.Back/SpineNormal - No evidence of reduced flexibility and abnormal spinal curvature.ExtremitiesNormal - No evidence of lower extremities abnormalities, tender or enlargedlymph nodes and upper extremities abnormalities.MusculoskeletalNormal - No evidence of bone abnormalities, joints, joint abnormalities,compromised muscle tone and restricted range of motion.IntegumentaryNormal - No evidence of blistering, bruising, dry skin, erythema, nailschanges, altered pigmentation, rash and urticaria.NeurologicNormal - No evidence of impaired cranial nerve(s), uncoordinated gait, motorimpairment, a sensory deficit and impaired reflexes.PsychiatricNormal - No evidence of altered affect, lack of comprehension anddisorientation.Laboratory:Most recent lab results are not available for this patient.Other test results are not available for this pat ient.Impression:Patient has end-stage renal disease on hemodialysis. Patient has evidence ofabnormal light chain ratio noted in end-stage renal disease. Ratio is 4. Noevidence of monoclonal protein is present. We do not have her laboratoryresults when quantitative immunoglobulins. At this point I would repeatimmunofixation and protein electrophoresis. As well as obtaining repeat kappalambda ratio and quantitative immunoglobulin level. [facility] any evidence of lytic lesion. At this timemyeloma or myeloma (smoldering/light chain) is not suspected.Plan:Based on the laboratory findings we have, I do not think the patient hasevidence of MGUS Or evidence of myeloma. [place] lambda ratio is explained byend-stage renal disease, but if concern of myeloma is high complete work-upshould be completed or at least be sent to us. Although this cannot becompletely excluded without having all the patient's information, I require herimmunoglobulins, CBC, any f urther bone imaging that may have been completed.At this time I would repeat all myeloma work-up prior to next visit. Patientcan follow-up in 2 to 4 weeks when this is been completed. . Nephrology noteshould be obtainedElectronically signed by:Dr. Ronel MasonCC: Name Value Range Interpretation Code Description Data Jessica rce(s) Supporting Document(s) Procedure Social History No Information Vital Signs ID Date Data Source [id number] 07/09/2021 12:34:00 PM EDT [facility] spital Name Value Range Interpretation Code Description Data Source(s) Weight Measurement Method 8 8 [facility] Weight (Calculated Kilograms) 81.65 81.65 [facility] Weight 2240 2240 [facility] pital Temperature Source 7 7 [facility] Temperature 97.9 97.9 [facility]ital Respiratory Effort 1 1 [facility] Respiratory Rate 16 16 [facility] Pulse Assessment Method 4 4 G [facility] [facility] [place] Pulse Rate 61 61 [facility] Height (Calculated Centimeters) 167.64 167. 64 [facility] Height 66 66 [facility] pital Blood Pressure 168/58 168/58 [facility] Body Mass Index (BMI) 29.0 29.0 [facility] Weight (Calculated Kilograms) 81.65 81.65 [facility] Height (Calculated Centimeters) 167.64 167. 64 [facility] Body Mass Index (BMI) 29.0 29.0 [facility] Weight (Calculated Kilograms) 81.65 81.65 [facility] Height (Calculated Centimeters) 167.64 167. 64 [facility] Body Mass Index (BMI) 29.0 29.0 [facility] ID Date Data Source [id number] 04/13/2021 12:16:00 PM EDT [facility] Name Value Range Interpretation Code Description Data Source(s) Weight (Calculated Kilograms) 74.30 74.30 [facility] Height (Calculated Centimeters) 170.18 170. 18 [facility] Body Mass Index (BMI) 25.6 25.6 [facility] ID Date Data Source [id number] 04/16/2021 07:48:00 AM EDT [facility] spital Name Value Range Interpretation Code Description Data Source(s) Weight Measurement Method 5 5 [facility] Weight (Calculated Kilograms) 81.65 81.65 [facility] Weight 1999 1999 [facility] pital Temperature Source 7 7 [facility] Temperature 98 98 [facility] spital Respiratory Effort 1 1 [facility] Respiratory Rate 20 20 [facility] Pulse Assessment Method 4 4 [facility] Weight Measurement Method 5 5 [facility] Weight (Calculated Kilograms) 81.65 81.65 [facility] Weight 1999 1999 [facility] pital Respiratory Effort 1 1 [facility] Respiratory Rate 20 20 [facility] Pulse Rate 80 80 [facility] pital Height (Calculated Centimeters) 167.64 167. 64 [facility] Blood Pressure 123/48 123/48 [facility] Body Mass Index (BMI) 29.0 29.0 [facility] Weight Measurement Method 5 5 [facility] Weight (Calculated Kilograms) 81.65 81.65 [facility] Weight 1999 1999 [facility] pital Respiratory Effort 1 1 [facility] Respiratory Rate 20 20 [facility] Pulse Rate 86 86 [facility] pital Height (Calculated Centimeters) 167.64 167. 64 [facility] Blood Pressure 200/85 200/85 [facility] Body Mass Index (BMI) 29.0 29.0 [facility] Weight Measurement Method 5 5 [facility] Weight (Calculated Kilograms) 81.65 81.65 [facility] Weight 1999 1999 [facility] pital Respiratory Effort 1 1 [facility] Respiratory Rate 20 20 [facility] Pulse Rate 86 86 [facility] pital Height (Calculated Centimeters) 167.64 167. 64 [facility] Blood Pressure 200/85 200/85 [facility] Body Mass Index (BMI) 29.0 29.0 [facility] Weight (Calculated Kilograms) 81.65 81.65 [facility] Height (Calculated Centimeters) 167.64 167. 64 [facility] Body Mass Index (BMI) 29.0 29.0 [facility] Weight (Calculated Kilograms) 81.65 81.65 [facility] Height (Calculated Centimeters) 167.64 167. 64 [facility] Body Mass Index (BMI) 29.0 29.0 [facility] ID Date Data Source [id number] 2021 10:58:00 AM EDT [facility] spital Name Value Range Interpretation Code Description Data Source(s) Weight Measurement Method 8 8 [facility] Weight (Calculated Kilograms) 81.65 81.65 [facility] Weight 2400 2400 [facility] pital Temperature Source 7 7 [facility] Temperature 96.7 96.7 [facility] spital Respiratory Effort 1 1 [facility] Respiratory Rate 18 18 [facility] Pulse Assessment Method 4 4 [facility] [place] Pulse Rate 74 74 [facility] pital Height (Calculated Centimeters) 167.64 167. 64 [facility] Height 66 66 [facility] pital Blood Pressure 174/74 174/74 [facility] Body Mass Index (BMI) 29.0 29.0 [facility] Weight Measurement Method 8 8 [facility] Weight (Calculated Kilograms) 81.65 81.65 [facility] Weight 2400 2400 [facility] pital Temperature Source 7 7 [facility] Temperature 96.7 96.7 [place] [facility] spital Respiratory Effort 1 1 [facility] Respiratory Rate 18 18 [facility] Pulse Assessment Method 4 4 G [facility] [place] Pulse Rate 77 77 [facility] pital Height (Calculated Centimeters) 167.64 167. 64 [facility] Height 66 66 [facility] pital Blood Pressure 184/75 184/75 [facility] Body Mass Index (BMI) 29.0 29.0 [facility] Weight Measurement Method 8 8 [facility] Weight (Calculated Kilograms) 81.65 81.65 [facility] Weight 2400 2400 [facility] pital Temperature Source 7 7 [facility] Temperature 96.7 96.[address] [facility] sp[facility] Respiratory Effort 1 1 [facility] Respiratory Rate 18 18 [facility] Pulse Assessment Method 4 4 [facility] [place] Pulse Rate 77 77 [facility] pital Height (Calculated Centimeters) 167.64 167. 64 [facility] Height 66 66 [facility] pital Blood Pressure 184/75 184/75 [facility] Body Mass Index (BMI) 29.0 29.0 [facility] Weight Measurement Method 8 8 [facility] Weight (Calculated Kilograms) 81.65 81.65 [facility] Weight 2400 2400 [facility] pital Temperature Source 7 7 [facility] Temperature 96.7 96.7 [facility] spital Respiratory Effort 1 1 [facility] Respiratory Rate 18 18 [facility] Pulse Assessment Method 4 4 [facility] [place] Pulse Rate 77 77 [facility] pital Height (Calculated Centimeters) 167.64 167. 64 [facility] Height 66 66 [facility] Blood Pressure 184/75 184/75 [facility] Body Mass Index (BMI) 29.0 29.0 [facility] Weight (Calculated Kilograms) 81.65 81.65 [facility] Height (Calculated Centimeters) 167.64 167. 64 [facility] Body Mass Index (BMI) 29.0 29.0 [facility] ID Date Data Source [id number] 01/05/2021 12:52:00 PM EDT [facility] spital Name Value Range Interpretation Code Description Data Source(s) Weight (Calculated Kilograms) 81.65 81.65 [facility] Temperature Source 3 3 [facility] Temperature 98.0 98.0 [facility] spital Respiratory Effort 1 1 [facility] Respiratory Rate 18 18 [facility] Pulse Assessment Method 4 4 [facility] [place] Pulse Rate 65 65 [facility] Height (Calculated Centimeters) 167.64 167. 64 [facility] Blood Pressure 179/70 179/70 [facility] Body Mass Index (BMI) 29.0 29.0 [facility] Weight (Calculated Kilograms) 81.65 81.65 [facility] Temperature Source 3 3 [facility] Temperature 98.0 98.0 [facility] spital Respiratory Effort 1 1 [facility] Respiratory Rate 18 18 [facility] Pulse Assessment Method 4 4 G [facility] [place] Pulse Rate 65 65 [facility] pital Height (Calculated Centimeters) 167.64 167. 64 [facility] Blood Pressure 179/70 179/70 [facility] Body Mass Index (BMI) 29.0 29.0 [facility] Weight (Calculated Kilograms) 81.65 81.65 [facility] Height (Calculated Centimeters) 167.64 167. 64 [facility] Body Mass Index (BMI) 29.0 29.0 [facility] Weight (Calculated Kilograms) 81.65 81.65 [facility] Height (Calculated Centimeters) 167.64 167. 64 [facility] Body Mass Index (BMI) 29.0 29.0 [facility] ID Date Data Source [id number] 11/28/2020 09:17:00 [facility] Interpretation Code Description Data Source(s) Weight (Calculated Kilograms) 81.65 81.65 [facility] Weight 2496 2496 [facility] pital Temperature Source 7 7 [facility] Temperature 98.8 98.8 [facility] spital Respiratory Effort 1 1 [facility] Respiratory Rate 16 16 [facility] Pulse Assessment Method 4 4 G [facility] [place] Weight (Calculated Kilograms) 81.65 81.65 [facility] Weight 2496 2496 [facility] pital Temperature Source 7 7 [facility] Temperature 99.9 99.9 [facility] spital Respiratory Effort 1 1 [facility] Respiratory Rate 18 18 [facility] Pulse Rate 68 68 [facility] Height (Calculated Centimeters) 167.64 167. 64 [facility] Blood Pressure 134/63 134/63 [facility] Body Mass Index (BMI) 29.0 29.0 [facility] Weight (Calculated Kilograms) 81.65 81.65 [facility] Height (Calculated Centimeters) 167.64 167. 64 [facility] Body Mass Index (BMI) 29.0 29.0 [facility] Weight (Calculated Kilograms) 81.65 81.65 [facility] Height (Calculated Centimeters) 167.64 167. 64 [facility] Body Mass Index (BMI) 29.0 29.0 [facility] ID Date Data Source [id number] 11/23/2020 07:58:00 AM EST [facility] Name Value Range Interpretation Code Description Data Source(s) Weight (Calculated Kilograms) 74.30 74.30 [facility] Height (Calculated Centimeters) 170.18 170. 18 [facility] Body Mass Index (BMI) 25.6 25.6 [facility] Hospital ID Date Data Source [id number] 11/23/2020 08:10:00 AM [facility] Name Value Range Interpretation Code Description Data Source(s) Weight (Calculated Kilograms) 81.65 81.65 [facility] Height (Calculated Centimeters) 167.64 167. 64 [facility] Body Mass Index (BMI) 29.0 29.0 [facility] Weight (Calculated Kilograms) 81.65 81.65 [facility] Height (Calculated Centimeters) 167.64 167. 64 [facility] Body Mass Index (BMI) 29.0 29.0 [facility] ID Date Data Source [id number] 11/14/2020 07:40:00 AM [facility] Name Value Range Interpretation Code Description Data Source(s) Weight (Calculated Kilograms) 74.30 74.30 [facility] Height (Calculated Centimeters) 170.18 170. 18 [facility] Body Mass Index (BMI) 25.6 25.6 [facility] ID Date Data Source [id number] 11/17/2020 07:33:00 PM [facility] Name Value Range Interpretation Code Description Data Source(s) Weight (Calculated Kilograms) 74.30 74.30 [facility] Height (Calculated Centimeters) 170.18 170. 18 [facility] Body Mass Index (BMI) 25.6 25.6 [facility] ID Date Data Source [id number] 09/04/2020 08:45:00 AM [facility] Name Value Range Interpretation Code Description Data Source(s) Weight (Calculated Kilograms) 74.30 74.30 [facility] Height (Calculated Centimeters) 170.18 170. 18 [facility] Body Mass Index (BMI) 25.6 25.6 [facility] Hospital ID Date Data Source [id number] 07/08/2020 [facility] Value Range Interpretation Code Description Data Source(s) Weight (Calculated Kilograms) 74.30 74.30 [facility] Height (Calculated Centimeters) 170.18 170. 18 [facility] Body Mass Index (BMI) 25.6 25.6 [facility] ID Date Data Source [id number] 08/16/2020 07:31:00 AM EST [facility] Name Value Range Interpretation Code Description Data Source(s) Weight (Calculated Kilograms) 74.30 74.30 [facility] Height (Calculated Centimeters) 170.18 170. 18 [facility] Body Mass Index (BMI) 25.6 25.6 [facility] ID Date Data Source [id number] 07/05/2020 12:50:00 PM T [facility] spital Name Value Range Interpretation Code Description Data Source(s) Weight (Calculated Kilograms) 81.65 81.65 [facility] Height (Calculated Centimeters) 167.64 167. 64 [facility] Body Mass Index (BMI) 29.0 29.0 [facility] ID Date Data Source [id number] 07/02/2020 03:37:00 PM EDT [facility] Name Value Range Interpretation Code Description Data Source(s) Weight (Calculated Kilograms) 74.30 74.30 [facility] Height (Calculated Centimeters) 170.18 170. 18 [facility] Body Mass Index (BMI) 25.6 25.6 [facility] ID Date Data Source [id number] 06/28/2020 07:44:00 AM EDT [facility] Name Value Range Interpretation Code Description Data Source(s) Weight (Calculated Kilograms) 74.30 74.30 [facility] Height (Calculated Centimeters) 170.18 170. 18 [facility] Body Mass Index (BMI) 25.6 25.6 [facility] ID Date Data Source [id number] 06/28/2020 08:05:00 AM EDT [facility] Name Value Range Interpretation Code Description Data Source(s) Weight Measurement Method 8 8 [facility] Weight (Calculated Kilograms) 81.65 81.65 [facility] Weight 2400 2400 [facility] Temperature Source 7 7 [facility] Temperature 97.4 97.4 [facility] spital Respiratory Effort 1 1 [facility] Respiratory Rate 18 18 [facility] Pulse Assessment Method 4 4 G [facility] [place] Pulse Rate 76 76 [facility] Height (Calculated Centimeters) 167.64 167. 64 [facility] Height 66 66 [facility] Blood Pressure 174/82 174/82 [facility] Body Mass Index (BMI) 29.0 29.0 [facility] Weight Measurement Method 8 8 [facility] Weight (Calculated Kilograms) 81.65 81.65 [facility] Weight 2400 2400 [facility] pital Temperature Source 7 7 [facility] Temperature 97.4 97.4 [facility] spital Respiratory Effort 1 1 [facility] Respiratory Rate 18 18 [facility] Pulse Assessment Method 4 4 G [facility] [place] Pulse Rate 71 71 [facility] pital Height (Calculated Centimeters) 167.64 167. 64 [facility] Height 66 66 [facility] Blood Pressure 173/65 173/65 [facility] Body Mass Index (BMI) 29.0 29.0 [facility] Weight (Calculated Kilograms) 81.65 81.65 [facility] Height (Calculated Centimeters) 167.64 167. 64 [facility] Body Mass Index (BMI) 29.0 29.0 [facility] ID Date Data Source [id number] 05/21/2020 05:30:00 PM EDT [facility] Name Value Range Interpretation Code Description Data Source(s) Weight Measurement Method 8 8 [facility] Weight (Calculated Kilograms) 81.65 81.65 [facility] Weight 2320 2320 [facility] pital Temperature Source 7 7 [facility] Temperature 97.2 97.2 [facility] spital Respiratory Effort 1 1 [facility] Respiratory Rate 16 16 [facility] Pulse Assessment Method 4 4 G [facility] [place] Pulse Rate 73 73 [facility] pital Height (Calculated Centimeters) 167.64 167. 64 [facility] Height 66 66 [facility] Blood Pressure 168/68 168/68 [facility] Body Mass Index (BMI) 29.0 29.0 [facility] Weight (Calculated Kilograms) 81.65 81.65 [facility] Height (Calculated Centimeters) 167.64 167. 64 [facility] Body Mass Index (BMI) 29.0 29.0 [facility] Weight (Calculated Kilograms) 81.65 81.65 [facility] Height (Calculated Centimeters) 167.64 167. 64 [facility] Body Mass Index (BMI) 29.0 29.0 [facility] ID Date Data Source [id number] 07/23/2020 07:36:00 AM EDT [facility] Name Value Range Interpretation Code Description Data Source(s) Weight (Calculated Kilograms) 74.30 74.30 [facility] Height (Calculated Centimeters) 170.18 170. 18 [facility] Body Mass Index (BMI) 25.6 25.6 [facility] ID Date Data Source [id number] 07/22/2020 12:07:00 PM EDT [facility] Name Value Range Interpretation Code Description Data Source(s) WEIGHT 67.8 [facility] 67[facility].72 centimeters 172.72 centimeter [facility] WEIGHT 67.8 kilos 67.8 [facility].72 centimeters 172.72 [facility]
--- OUTSIDE RECORDS SUMMARY | 2021-07-18 18:48 | CCD ---
Author Author [facility] Organization [facility] Address Unknown Phone Unavailable Care Team Providers Care Dialysis Nurse Name Role Phone Faith SANCHEZ MD Unavailable Unavailable MARAVEGIAS, Faith GRANADO MD Unavailable Unavailable MARAVEGIAS, Faith GRANADO MD Unavailable Unavailable MARAVEGIAS, Faith GRANADO MD Unavailable Unavailable MARAVEGIAS, Faith GRANADO MD Unavailable Unavailable MARAVEGIAFaith Allen MD Unavailable Unavailable MARAVEGIASFaith MD Unavailable Unavailable MARAVEGIASFaith MD Unavailable Unavailable MARAVEGIAS, Faith GRANADO MD Unavailable Unavailable MARAVEGIASFaith MD Unavailable Unavailable MARAVEGIASFaith MD Unavailable Unavailable MARAVEGIASFaith MD Unavailable Unavailable MARAVEGIASFaith MD Unavailable Unavailable MARAVEGIAS, Faith GRANADO MD Unavailable Unavailable Ana Paula, F Eduardo PA Unavailable Unavailable Ana Paula, F Eduardo PA Unavailable Unavailable [place], F Eduardo PA Unavailable Unavailable Ana Paula, F Eduardo PA Unavailable Unavailable [place], F Eduardo PA Unavailable Unavailable [place], F Eduardo PA Unavailable Unavailable [place], F Eduardo PA Unavailable Unavailable [place], F Eduardo PA Unavailable Unavailable [place] CityRitchie cuevas Unavailable Unavailable [place] CityRicthie cuevas Unavailable Unavailable Morro Yoo MD Unavailable Unavailable [...] Unavailable Ho, H Amauri GRESHAM Unavailable Unavailable ZEGIL, D YESSICA IT RECRUITER Unavailable Unavailable ZEGIL, D YESSICA IT RECRUITER Unavailable Unavailable ZEGIL, D YESSICA IT RECRUITER Unavailable Unavailable LD, WAJEEHA DO Unavailable [phone] LD, WAJEEHA DO Unavailable [phone] LD, WAJEEHA DO Unavailable [phone] LD, WAJEEHA DO Unavailable [phone] LD, WAJEEHA DO Unavailable [phone] LD, WAJEEHA DO Unavailable [phone] LD, WAJEEHA DO Unavailable [phone] LD, WAJEEHA DO Unavailable [phone] LD, WAJEEHA DO Unavailable [phone] LD, WAJEEHA DO Unavailable [phone] DL, WAJEEHA DO Unavailable [phone] LD, WAJEEHA DO Unavailable [phone] LD, WAJEEHA DO Unavailable [phone] LD, WAJEEHA DO Unavailable [phone] LD, WAJEEHA DO Unavailable [phone] LD, WAJEEHA DO Unavailable [phone] LD, WAJEEHA DO Unavailable [phone] JAITLY, MANASVI MD Unavailable Unavailable JAITLY, MANASVI [...] JAITLY, MANASVI MD Unavailable Unavailable Marlon, Wahib Unavailable Unavailable Marlon, Wahib Unavailable Unavailable Marlon, Wahib MD Unavailable Unavailable [...] Unavailable Unavailable MECHELLEAlejandro RODRIGUEZ MD Unavailable Unavailable MECHELLEAlejandro RODRIGUEZ MD Unavailable Unavailable MECHELLEAlejandro MAHARAJ MD Unavailable Unavailable MECHELLEAlejandro MAHARAJ MD Unavailable Unavailable MECHELLEAlejandro MAHARAJ MD Unavailable Unavailable MECHELLEAlejandro MAHARAJ MD Unavailable Unavailable MECHELLEAlejandro MAHARAJ MD Unavailable Unavailable MECHELLEAlejandro MD Unavailable Unavailable MECHELLEAlejandro MAHARAJ MD Unavailable Unavailable MECHELLEAlejandro MAHARAJ MD Unavailable Unavailable MECHELLEAlejandro MAHARAJ MD Unavailable Unavailable MECHELLEAlejandro MAHARAJ MD Unavailable Unavailable MECHELLEAlejandro MAHARAJ MD Unavailable Unavailable MECHELLEAlejandro MAHARAJ MD Unavailable Unavailable MECHELLE S MAURY GRESHAM Unavailable Unavailable MECHELLEAlejandro MAHARAJ MD Unavailable Unavailable MECHELLEAlejandro MAHARAJ MD Unavailable Unavailable MECHELLEAlejandro MAHARAJ MD Unavailable Unavailable MECHELLEAlejandro MAHARAJ MD Unavailable Unavailable MECHELLEAlejandro MAHARAJ MD Unavailable Unavailable MECHELLEAlejandro MAHARAJ MD Unavailable Unavailable MECHELLEAlejandro MAHARAJ MD Unavailable Unavailable MECHELLEAlejandro MAHARAJ MD Unavailable Unavailable MECHLELEAlejandro MAHARAJ MD Unavailable Unavailable MECHELLEAlejandro MAHARAJ MD [...] Unavailable Unavailable MECHELLEAlejandro MAHARAJ MD Unavailable Unavailable Marlon, Wahib MD Unavailable [...] is protected by Article 27-F of the [facility] Public Health law. If you continue you may have access to information: Regarding HIV / AIDS; Provided by facilities licensed or operated by the [facility] Office of Mental Health; or Provided by the [facility] Office for People With Developmental Disabilities. If such information is present, then the following [facility] mandated warning applies: This information has been [...] law may result in a fine or half-way sentence or both. A general authorization for the release of medical or other information is NOT sufficient authorization for further disc losure. Allergies and Adverse Reactions Type Description Substance Reaction Status Data Source(s ) Drug allergy Drug allergy ceftriaxone (From Rocephin) [facility] Drug allergy Drug allergy codeine Unknown Reaction [facility] Drug allergy Drug allergy Sulfa (Sulfonamide Antibiotics) Unknown [facility] Drug allergy Drug allergy Penicillins [facility] Encounters Encounter Providers Location Date Indications Data Source(s ) Emergency Attender: Eduardo DESOUZA ED-ED 01:17:00 PM EDT - 07/05/2021 01:30:00 PM EDT lwg wound [facility] lwg wound Outpatient CPSCAORT-LABEJN 04/12/2021 02:38:00 PM EDT [facility] Emergency Attender: YESSICA SILVA [facility] ED-ED 06/2021 10:32:00 PM EDT - 04/12/2021 02:09:00 AM EDT CHANGE IN MENTAL STATUS [facility] CHANGE IN MENTAL STATUS Patient discharged. Emergency Attender: YESSICA SILVA [facility] ED-ED 01/02 09:56:00 AM EDT - 2021 10:57:00 AM EDT FALL [facility] FALL Patient discharged. Emergency Attender: YESSICA SILVA [facility] ED-ED 01/2021 12:16:00 PM EDT - 01/05/2021 12:50:00 PM EDT ARM BLEEDING [facility] ARM BLEEDING Patient discharged. Emergency Attender: Alexx JORGENSENttender: Alexx DESOUZA ED-ED 11/25/2020 01:13:00 AM EST - 11/25/2020 04:27:00 AM EST ABD PAIN [facility] ABD PAIN [facility] 11/19/2020 03:05:00 PM EST [facility] Outpatient Attender: CATHERINE JAFFE DO ED-LABPNP 11/04 02:22:00 PM EST - 11/19/2020 02:23:00 PM EST N186 [id number] [facility] N186 [id number] Patient discharged. [facility] 09:44:00 AM EST - 08/28/2020 09:45:00 AM EST [facility] Patient discharged. [facility]: [facility] 08/08/2020 08:4 5:00 AM EST C44.612 [facility] C44.612 Outpatient Attender: Zachary Mason MD 07/09/2020 10:37:00 AM EDT [facility] Outpatient Attender: Amauri IRBY-CPSCASARAH 0 08:13:00 AM EDT - 07/08/2020 08:14:00 AM EDT [facility] Patient discharged. Outpatient MATTHIEU 07/02/2020 03:06:00 PM EDT [facility] Outpatient Attender: Amauri IRBY-CPSCASARAH 0 02:06:00 PM EDT - 07/02/2020 02:07:00 PM EDT [facility] Patient discharged. Outpatient Attender: Zachary Mason MD ED-LABPNP 020 10:54:00 AM EDT - 07/02/2020 10:55:00 AM EDT D472 [facility] D472 Patient discharged. Outpatient Attender: Amauri IRBY-CPSDANIELLE 0 08:31:00 AM EDT - 06/27/2020 08:32:00 AM EDT C44.310 [facility] C44.310 Patient discharged. Outpatient MATTHIEU 06/25/2020 08:28:00 PM EDT [facility] Emergency Attender: MAURY DESOUZA ED-ED 06/25 05:01:00 PM EDT - 06/25/2020 08:33:00 PM EDT FEVER, CHILLS,ABD PAIN [facility] FEVER, CHILLS,ABD PAIN Patient discharged. Outpatient Attender: Zachary Mason MD ER-CTCMEDONC 06/18/2020 01:20:00 PM EDT [facility] Admission cancelled. Disregard status an d admitted date. Emergency Attender: LOY SANCHEZ MD ED-ED 0 05/21/2020 05:12:00 PM EDT - 05/21/2020 05:30:00 PM EDT small area bleeding on head [facility] small area bleeding on head Patient discharged. Outpatient Attender: Amauri IRBY-CPSCASARAH 0 10:45:00 AM EDT - 05/21/2020 10:46:00 AM EDT [facility] Patient discharged. Inpatient Attender: BEATRICE KILGORE MDA ttender: MAURY MIN MDAdmitter: MAURY MIN MD ER-2WEST 01/13/2019 05:56:00 PM EDT - 01/21/2019 01:17:00 PM EDT [facility] Medications Medication Brand Name Start Date Product [...] TWICE A DAY SOLD: 03/17/2021 [facility] carvedilol 6.25 MG Oral Tablet [...] WEEK (ON ALL NON-DIALYSIS DAYS) SOLD: 04/12/2021 [facility] 10 mg 12/18/2020 12:00:00 AM EDT [...] TABLET BY MOUTH EVERY DAY SOLD: 05/12/2021 [facility] 75 mg 10/14/2020 12:00:00 AM EST [...] GLASS OF WATER AND DRINK SOLD: 10/29/2020 [facility] 800 mg 09/18/2020 12:00:00 AM EST [...] MOUTH TWICE A DAY SOLD: 09/19/2020 [facility] 30 mg 03/22/2020 12:00:00 AM [...] type / Coverage type Policy ID Covered libertarian ID Covered libertarian's relationship to licea Policy Licea Plan Information MEDICARE [id number] Rianna [id number] MEDICARE [id number] xxxxxxxxxxx [id number] WELLCARE [id number] S [id number] AMER PROG TODAYS OPTIONS G [id number] Self [id number] TODAYS OPTION MEDICARE [id number] Rianna [id number] MEDICAID [id number] Self [id number] TODAYS OPTIONS [id number] SP [id number] MEDICAID [id number] xxxxxxxx [id number] MEDICAID [id number] Rianna [id number] [place] MEDICAID [id number] Rianna 7 [id number] TODAYS OPTIONS [id number] SP [id number] TODAYS OPTIONS [id number] SP [id number] MEDICAID M [id number] S [id number] MEDICAID PROF FEES [id number] S [id number] WELLCARE [id number] S [id number] MEDICAID [id number] SP [id number] MEDICARE PART A -O/P [id number] 18 [id number] MEDICAID [id number] 18 [id number] MEDICARE PART A [facility] [place] [id number] 18 [id number] EDWIN [id number] SP [id number] MEDICAID [id number] S [id number] [place] MEDICARE DIVISION [id number] S [id number] MEDICARE - [place] [id number] S [id number] EDWIN [id number] SP [id number] WELLCARE [id number] SP [id number] TODAYS OPTIONS [id number] SP [id number] EDWIN CARE MEDICAID [id number] S [id number] MEDICARE [id number] SP [id number] WELLCARE [id number] S [id number] EDWIN CARE [id number] S [id number] MEDICAID PROF FEES [id number] S [id number] EDWIN [id number] SP [id number] MEDICARE [id number] SP [id number] [place] O [id number] S [id number] TODAYS OPTIONS/MALDIVIAN O [id number] S [id number] MEDICARE [id number] SP [id number] TODAYS OPTIONS [id number] SP [id number] TODAYS OPTIONS/MALDIVIAN O [id number] S [id number] MEDICAID -O/P [id number] TODAYS OPTIONS -O/P [id number] 18 [id number] MEDICAID -I/P [id number] TODAYS OPTIONS -I/P [id number] 18 [id number] TODAYS OPTIONS -PHYSICIAN [id number] 18 [id number] INFO ONLY MEDICARE ADVANTAGE [id number] 18 [id number] MEDICAID -PHYSICIAN [id number] MEDICARE ADVANTAGE PLAN -PHYSICIAN [id number] 1 [id number] MALDIVIAN PROGRESSIVE MC [id number] S [id number] MEDICAID -RECURRING [id number] 1 [id number] TODAYS OPTIONS -RECURRING [id number] 18 [id number] MEDICARE -O/P [id number] 18 [id number] MEDICARE -I/P [id number] 18 [id number] MEDICARE -O/P [id number] 18 [id number] MEDICARE -RECURRING [id number] 1 [id number] MEDICARE -RECURRING [id number] 18 [id number] [place] [id number] SP [id number] N MEDICARE ADVANTAGE PLAN -I/P [id number] 18 [id number] MEDICARE [id number] SP [id number] MEDICARE [id number] S [id number] MEDICAID [id number] S [id number] MEDICARE [id number] S [id number] MEDICAID [id number] S [id number] EMEDNY [id number] SP [id number] [id number] [id number] S [id number] MEDICARE [id number] S [id number] MEDICAID [id number] S [id number] TODAYS OPTIONS AMER PROG [id number] S [id number] MEDICARE C [id number] S [id number] Problems, Conditions, and Diagnoses Code Display Name Description Problem Type Effective Dates Data Source(s) Z95.1 Presence of aortocoronary bypass graft P RESENCE OF AORTOCORONARY BYPASS GRAFT Diagnosis 11/25/2020 01:13:00 AM [facility] spital Z87.440 Personal history of urinary (tract) infe ctions PERSONAL HISTORY OF URINARY (TRACT) INFECTIONS Diagnosis 11/25/2020 01:13:00 AM [facility] 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.82 exterminator 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 of 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 RETIREMENT (CU RRENT) USE OF ASPIRIN Diagnosis 11/25/2020 01:13:00 AM [facility] Z79.02 exterminator 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 of antithromboti cs/antiplatelets RETIREMENT (CURRENT) USE OF ANTITHROMBOTICS/ANTIPLATELETS Diagnosis 021 01:13:00 AM [facility] Z79.4 long-term (current) use of insulin SEMICONDUCTOR WAFERS TESTER (CU RRENT) USE OF INSULIN Diagnosis 11/25/2020 01:13:00 AM [facility] I25.10 Atherosclerotic heart diseas e of [place] coronary artery without angina pectoris ATHSCL HEART DISEASE OF [place] CORONARY ARTERY W/O ANG PCTRS Diagnosis 11/25/2020 01:13:00 AM [facility] I12.9 Hypertensive chronic kidney disease with stage 1 through stage 4 chronic kidney disease, or unspecified chronic kidney disease HYPERTENSIVE CHRONIC KIDNEY DISEASE W STG 1-4/UNSP CHR KDNY Diagnosis 11/25/2020 01:13:00 A M [facility] 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 TYPE 2 DIABETES MELLITUS W DIABETIC CHRONIC KIDNEY DISEASE Diagnosis 01:13:00 AM [facility] 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 Diagnosis 11/25/2020 01:13:00 AM [facility] N18.5 Chronic kidney disease, stage 5 CHRONIC KIDNEY DISEASE , STAGE 5 Diagnosis 11/25/2020 01:13:00 AM [facility] R74.8 Abnormal levels of other serum enzymes A BNORMAL LEVELS OF OTHER SERUM ENZYMES Diagnosis 11/25/2020 01:13:00 AM [facility] R10.11 Right upper quadrant pain RIGHT UPPER QUADRANT PAIN Di agnosis 11/25/2020 01:13:00 AM [facility] N39.0 Urinary tract infection, site not specif ied URINARY TRACT INFECTION, SITE NOT SPECIFIED Diagnosis 11/19/2020 02:22:00 PM [facility] N18.6 End stage renal disease END STAGE RENAL DISEASE Diagno sis 11/19/2020 02:22:00 PM [facility] Z48.02 Encounter for removal of sutures ENCOUNTER FOR R EMOVAL OF SUTURES Diagnosis 08/28/2020 09:44:00 AM [facility] C44.612 Basal cell carcinoma of skin of right up per limb, including shoulder BASAL CELL CARCINOMA SKIN/ RIGHT UPPER LIMB, INC SHOULDER Diagnosis 08/08/2020 08:45:00 AM [facility] 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 Diagnosis 07/09/2020 01:50:00 PM [facility] Z79.4 exterminator 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 of insulin RETIREMENT (CU RRENT) USE OF INSULIN Diagnosis 07/09/2020 01:50:00 PM [facility] Z95.1 Presence of aortocoronary bypass graft P RESENCE OF AORTOCORONARY BYPASS GRAFT Diagnosis 07/09/2020 01:50:00 PM [facility] I25.2 Old myocardial infarction OLD MYOCARDIAL INFARCTION Di agnosis 07/09/2020 01:50:00 PM [facility] F41.9 Anxiety disorder, unspecified ANXIETY DISORDER, UNSPEC IFIED Diagnosis 07/09/2020 01:50:00 PM [facility] M06.9 Rheumatoid arthritis, unspecified RHEUMATOID ART HRITIS, UNSPECIFIED Diagnosis 07/09/2020 01:50:00 PM [facility] E78.5 Hyperlipidemia, unspecified HYPERLIPIDEMIA, UNSPECIFIE D Diagnosis 07/09/2020 01:50:00 PM [facility] I12.0 Hypertensive chronic kidney disease with stage 5 chronic kidney disease or end stage renal disease HYP CHR KIDNEY DISEASE W STAGE 5 CHR KIDNEY DISEAS Diagnosis 07/09/2020 01:50:00 PM [facility] 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 TYPE 2 DIABETES MELLITUS W DIABETIC CHRONIC KIDNEY Diagnosis 07/09/2020 01:50:00 PM [facility] N18.6 End stage renal disease END STAGE RENAL DISEASE Diagno sis 07/09/2020 01:50:00 PM [facility] D22.61 Melanocytic nevi of right upper limb, in cluding shoulder MELANOCYTIC NEVI OF RIGHT UPPER LIMB, INCLUDING SHOULDER Diagnosis 07/08/2020 08:13:00 AM [facility] D22.62 Melanocytic nevi of left upper limb, inc luding shoulder MELANOCYTIC NEVI OF LEFT UPPER LIMB, INCLUDING SHOULDER Diagnosis 07/08/2020 08:13:00 A M [facility] D47.2 Monoclonal gammopathy MONOCLONAL GAMMOPATHY Diagnosis 07/02/2020 10:54:00 AM [facility] R79.89 Other specified abnormal findings of blo od chemistry OTHER SPECIFIED ABNORMAL FINDINGS OF BLOOD CHEMISTRY Diagnosis 06/18/2020 01:20:00 PM [facility] D48.5 Neoplasm of uncertain behavior of skin N EOPLASM OF UNCERTAIN BEHAVIOR OF SKIN Diagnosis 05/21/2020 10:45:00 AM [facility] Surgeries/Procedures Procedure Description Date Indications Data Source(s) EMERGENCY DEPARTMENT VISIT LOW/MODER SEVERITY 07/05/20 12:00:00 AM [facility] Non-covered item or service NON-COVERED ITEM OR SERVICE 04/03 12:00:00 AM [facility] URNLS DIP STICK/TABLET REAGENT AUTO MICROSCOPY URINALYSIS AU TO W/SCOPE 04/11/2021 12:00:00 AM [facility] BLOOD COUNT COMPLETE AUTO&AUTO DIFRNTL WBC COUNT COMPLETE CB C W/AUTO DIFF WBC 04/11/2021 12:00:00 AM [facility] COMPREHENSIVE METABOLIC PANEL COMPREHEN METABOLIC PANEL 06/2021 12:00:00 AM [facility] EMERGENCY DEPARTMENT VISIT MODERATE SEVERITY EMERGENCY DEPT VISIT 04/11/2021 12:00:[address] [facility] CT ABDOMEN & PELVIS W/O CONTRAST MATERIAL CT ABD & PELVIS W/ O CONTRAST 11/25/2020 12:00:00 AM [facility] ECG ROUTINE ECG W/LEAST 12 LDS TRCG ONLY W/O I&R ELECTROCARD IOGRAM TRACING 11/25/2020 12:00:00 AM [facility] AMYLASE ASSAY OF AMYLASE 11/25/2020 12:00:00 AM [facility] LIPASE ASSAY OF LIPASE 11/25/2020 12:00:00 AM [facility] Infusion, normal saline solution , 1000 cc 11/25/2020 12:00:00 AM [facility] Injection, ondansetron hydrochloride, per 1 mg 021 12:00:00 AM [facility] THER PROPH/DX NJX IV PUSH SINGLE/1ST SBST/DRUG THER/PROPH/DI AG INJ IV PUSH 11/25/2020 12:00:00 AM [facility] IV INFUSION THERAPY/PROPHYLAXIS /DX 1ST TO 1 HR THER/PROPH/D IAG IV INF INIT 11/25/2020 12:00:00 AM [facility] EMERGENCY DEPT VISIT HIGH SEVERITY&THREAT FUNCJ EMERGENCY DE PT VISIT 11/25/2020 12:00:00 AM [facility] outpatient clinic visit for assessment and ma nagement of a patient Hospital Outpatient Clinic Visit 08/28/2020 12:00:00 AM [facility] REPAIR INTERMEDIATE S/A/T/E 7.6-12.5 CM INTMD RPR S/TR/EXT 7 .6-12.5 08/08/2020 12:00:00 AM [facility] EXCISION MALIGNANT LESION TRUNK/ARM/LEG >4.0 CM EXC TR-EXT M AL+HANS >4 CM 08/08/2020 12:00:00 AM [facility] LEVEL IV SURG PATHOLOGY GROSS&MICROSCOPIC EXAM TISSUE EXAM B Y PATHOLOGIST 08/08/2020 12:00:00 AM [facility] SHAVING SKIN LESION 1 F/E/E/N/L/M DIAM >2.0 CM SHAVE SKIN LE GINA >2.0 CM 05/21/2020 12:00:00 AM EDT [facility] SHVG SKIN LESION 1 TRUNK/ARM/LEG DIAM >2.0 CM SHAVE SKIN LES ION >2.0 CM 05/21/2020 12:00:00 AM EDT [facility] Results ID Date Data Source [id number] 04/13/2021 03:28:00 PM EDT [facility] spital Procedure Performed By: [facility] [address] [place] [address] Director: Joseph Parmar MD . Mixed anival: Mixed anival, probable contamination. Name Value Range Interpretation Code Description Data Jessica rce(s) Supporting Document(s) ID Date Data Source [id number] 04/13/2021 12:16:00 PM EDT [facility] Procedure Performed By: [facility] [address] [place] [address] Director: Joseph Parmar MD . Name Value Range Interpretation Code Description Data Jessica rce(s) Supporting Document(s) Urine Culture Normal (applies to non-numeric re sults) [facility] ID Date Data Source [id number] 04/12/2021 12:47:00 AM EDT [facility] Name Value Range Interpretation Code Description Data Jessica rce(s) Supporting Document(s) Sodium 141 mmol/L 136-145 Normal (applies to non-numeric resul ts) [facility] Potassium 3.5-5.1 Normal (applies to non-numeric resul ts) [facility] Chloride 101 mmol/L 98-107 Normal (applies to non-numeric resul ts) [facility] Carbon Dioxide CO2 21-32 Normal (applies to non-numer ic results) [facility] Anion Gap 5.0-16.0 Normal (applies to non-numeric resul ts) [facility] BUN 13 mg/dL 7-18 Normal (applies to non-numeric results) [facility] Creatinine,Serum 0.7-1.2 Above high normal [facility] GFR 12 mL/min >60 Below low normal [facility] spital Glucose Level 147 mg/dL 60-99 Above high normal [facility] Reference range is only applicable when patient is fasting Note the following drug interference: Sulfasalazine Sulfapyridine Can see falsely depressed Can see falsely elevated result with up to 17% results with up to 11% decrease in measurement increase in measurement Recommend patients be collected for this test prior to administration of either drug. Calcium 8.5-10.1 Normal (applies to non-numeric resul ts) [facility] Bilirubin,Total 0.1-1.9 Normal (applies to non-numeric results) [facility] SGOT(AST) 16 U/L 15-37 Normal (applies to non-numeric resul ts) [facility] Note the following drug interference: Sulfasalazine Sulfapyridine Can see falsely depressed Can see falsely elevated result with up to 10% results with up to 10% decrease in measurement increase in measurement Recommend patients be collected for this test prior to administration of either drug. SGPT(ALT) 17 U/L 12-78 Normal (applies to non-numeric resul ts) [facility] Note the following drug interference: Sulfasalazine Sulfapyridine Can see falsely depressed Can see falsely elevated result with up to 29% results with up to 10% decrease in measurement increase in measurement Recommend patients be collected for this test prior to administration of either drug. Alkaline Phosphatase 62 U/L 38-126 Normal (applies to non-num yessenia results) [facility] can increase Alkaline Phosp le vels up to 2 times the normal adult value. Normal values for children and adolescents are 2 to 3 times the normal adult value. Total Protein 6.0-8.2 Normal (applies to non-numeric re sults) [facility] Albumin Level 3.4-5.0 Below low normal [facility] ID Date Data Source [id number] 04/12/2021 12:19:00 AM EDT [facility] Name Value Range Interpretation Code Description Data Jessica rce(s) Supporting Document(s) White Blood Count 3.5-10.5 Normal (applies to non-numeri c results) [facility] Red Blood Count 3.90-5.00 Below low normal [facility] Hemoglobin 12.0-15.[address] [facility] ospital Hematocrit 34.9-44.[address] [facility]sp[facility] Mean Corpuscular Volume 81.2-95.1 Above high normal [facility] Mean Corpuscular Hgb 25.6-32.[address] [facility] Mean Corpuscular Hgb Conc 32.0-36.0 Below low normal [facility] Red Cell Distribution Width 11.9-15.5 Normal (appli es to non-numeric results) [facility] Platelet Count 237 x10 3/uL 150-450 Normal (applies to non-numeric results) [facility] Mean Platelet Volume 9.4-12.4 Normal (applies to non-num yessenia results) [facility] Neutrophils% (Auto) 31.0-71.0 Normal (applies to non-nume alix results) [facility] Lymphocytes% (Auto) 20.0-55.0 Normal (applies to non-nume alix results) [facility] Monocytes% (Auto) 4.0-12.0 Above high normal [facility] Eosinophils% (Auto) 1.0-8.0 Normal (applies to non-nume alix results) [facility] Basophils% (Auto) 0.0-2.0 Normal (applies to non-numeri c results) [facility] Immature Granulocytes% (Auto) 0.0-2.0 Normal (brenda lies to non-numeric results) [facility] Neutrophils# (Auto) 1.50-6.20 Normal (applies to non-nume alix results) [facility] Lymphocytes# (Auto) 1.20-4.00 Normal (applies to non-nume alix results) [facility] Monocytes# (Auto) 0.00-0.90 Above high normal [facility] Eosinophils# (Auto) 0.00-0.50 Normal (applies to non-nume alix results) [facility] Basophils# (Auto) 0.00-0.20 Normal (applies to non-numeri c results) [facility] Immature Granulocytes# (Auto) 0.00-7.00 No rmal (applies to non-numeric results) [facility] Slide has been reviewed and findings con firmed by a technologist/p 3 armament/ordnance ima technician. ID Date Data Source [id number] 04/12/2021 01:00:00 AM [facility] Collected By: Nurse Initials: lb Time Collected: 2336 Collected By: Nurse Initials: lb Time Collected: 2336 Name Value Range Interpretation Code Description Data Jessica rce(s) Supporting Document(s) Color,Urine Colorl-Dk Y Normal (applies to non-numeric res ults) [facility] Clarity,Urine Clear Normal (applies to non-numeric re sults) [facility] Specific Nunda,Urine 1.005-1.030 Normal (applies to non- numeric results) [facility] pH,Urine 5.0-8.0 [facility] Protein,Urine Negative [facility] becca Glucose,Urine Negative Normal (applies to non-numeric re sults) [facility] Ketones,Urine Negative Normal (applies to non-numeric re sults) [facility] Blood,Urine Negative [facility] l Bilirubin,Urine Negative Normal (applies to non-numeric results) [facility] Urobilinogen,Urine 0.2-1.0 Normal (applies to non-numer ic results) [facility] Leukocyte Esterase,Urine Negative [facility] Nitrite,Urine Negative Normal (applies to non-numeric re sults) [facility] ID Date Data Source [id number] 04/12/2021 01:01:00 AM [facility] Collected By: Nurse Initials: lb Time Collected: 2336 Collected By: Nurse Initials: lb Time Collected: 2336 Name Value Range Interpretation Code Description Data Jessica rce(s) Supporting Document(s) WBC,Urine None Seen [facility] Squamous Cells,Urine None Seen [facility] Bacteria,Urine None Seen [facility] ital ID Date Data Source [id number] 01/13/2021 12:55:00 PM [facility] Imaging Services Department Imaging Report [address] [place], [place] [address] %(RAD)RES..mtdd.print.filter("line") Name: DEION JADE : 1940 Age/Sex: 81F Ordering Provider: DOM Hope Med Rec #: [id number] Reg Status: [facility] Room #: Date of Service: 01/12/21 Report Number: [id number] cc:PCP Unknown Send Report To: [id number] XRP/XR Humerus Lt Reason for exam: s/p [...] Dictation Date/Time: 01/12/21 1042 Transcribed Date/Time: 01/13/21 1259 Curing Oven Attendant: JSAPREET Name Value Range Interpretation Code Description Data Jessica rce(s) Supporting Document(s) ID Date Data Source [id number] 01/13/2021 06:59:00 AM EDT [facility] Imaging Services Department Imaging Report [address] [place], [place] [address] %(RAD)RES..mtdd.print.filter("line") Name: DEION JADE : 1940 Age/Sex: 81F Ordering Provider: DOM Hope Med Rec #: [id number] Reg Status: DEP ER Room #: Date of Service: 01/12/21 Report Number: [id number] cc:PCP Unknown Send Report To: [id number] XRP/XR Shoulder Lt Reason for exam: s/p [...] rce(s) Supporting Document(s) ID Date Data Source [id number] 11/25/2020 03:21:00 AM [facility] Imaging Services Department Imaging Report [address] [place], [place] [address] %(RAD)RES..mtdd.print.filter("line") Name: KATHRYNRENITA LIUAbhijit Lacey : 1940 Age/Sex: 80F Ordering Provider: DEO Will Med Rec #: [id number] Reg Status: REG ER Room #: Date of Service: 11/25/20 Report Number: [id number] cc:Pablito Gillis NP; DEO Will Send Report [...] 11/25/20320 Dictation Date/Time: 11/25/20320 Transcribed Date/Time: 11/25/20320 Curing Oven Attendant: Name Value Range Interpretation Code Description Data Jessica rce(s) Supporting Document(s) ID Date Data Source [id number] 11/25/2020 02:22:00 AM [facility] Name Value Range Interpretation Code Description Data Jessica rce(s) Supporting Document(s) Amylase 272 U/L 25-115 PH [facility] NUNU YEPEZ read back critical informatio n 11/25/20220 LAB.DYGJO ID Date Data Source [id number] 11/25/2020 02:22:00 AM EST [facility] Name Value Range Interpretation Code Description Data Jessica rce(s) Supporting Document(s) Sodium 137 mmol/L 136-145 Normal (applies to non-numeric resul ts) [facility] Potassium 3.5-5.1 PH [facility] NUNU YEPEZ read back critical informatio n 11/25/20219 LAB.DYGJO Chloride 101 mmol/L 98-107 Normal (applies to non-numeric resul ts) [facility] Carbon Dioxide CO2 21-32 Normal (applies to non-numer ic results) [facility] Anion Gap 5.0-16.0 Normal (applies to non-numeric resul ts) [facility] BUN 54 mg/dL 7-18 PH [facility] NUNU YEPEZ read back critical informatio n 11/25/20220 LAB.DYGJO Creatinine,Serum 0.7-1.2 Above high normal [facility] GFR 6 mL/min >60 Below low normal [facility] Glucose Level 210 mg/dL 60-99 Above high normal [facility] Reference range is only applicable when patient is fasting Note the following drug interference: Sulfasalazine Sulfapyridine Can see falsely depressed Can see falsely elevated result with up to 17% results with up to 11% decrease in measurement increase in measurement Recommend patients be collected for this test prior to administration of either drug. Calcium 8.5-10.1 Normal (applies to non-numeric resul ts) [facility] Bilirubin,Total 0.1-1.9 Normal (applies to non-numeric results) [facility] SGOT(AST) 13 U/L 15-37 Below low normal [facility] Note the following drug interference: Sulfasalazine Sulfapyridine Can see falsely depressed Can see falsely elevated result with up to 10% results with up to 10% decrease in measurement increase in measurement Recommend patients be collected for this test prior to administration of either drug. SGPT(ALT) 19 U/L 12-78 Normal (applies to non-numeric resul ts) [facility] Note the following drug interference: Sulfasalazine Sulfapyridine Can see falsely depressed Can see falsely elevated result with up to 29% results with up to 10% decrease in measurement increase in measurement Recommend patients be collected for this test prior to administration of either drug. Alkaline Phosphatase 112 U/L 38-126 Normal (applies to non-num yessenia results) [facility] can increase Alkaline Phosp le vels up to 2 times the normal adult value. Normal values for children and adolescents are 2 to 3 times the normal adult value. Total Protein 6.0-8.2 Normal (applies to non-numeric re sults) [facility] Albumin Level 3.4-5.0 Normal (applies to non-numeric re sults) [facility] ID Date Data Source [id number] 11/25/2020 02:22:00 AM [facility] Name Value Range Interpretation Code Description Data Jessica rce(s) Supporting Document(s) Lipase 336 U/L 73-393 Normal (applies to non-numeric resul ts) [facility] ID Date Data Source [id number] 11/25/2020 01:58:00 AM [facility] Name Value Range Interpretation Code Description Data Jessica rce(s) Supporting Document(s) White Blood Count 3.5-10.5 Above high normal [facility] Red Blood Count 3.90-5.00 Below low normal [facility] Hemoglobin 12.0-15.[address] [facility] ospital Hematocrit 34.9-44.5 Normal (applies to non-numeric resul ts) [facility] Mean Corpuscular Volume 81.2-95.1 Above high normal [facility] Mean Corpuscular Hgb 25.6-32.[address] [facility] Mean Corpuscular Hgb Conc 32.0-36.0 Below low normal [facility] Red Cell Distribution Width 11.9-15.5 Normal (appli es to non-numeric results) [facility] Platelet Count 235 x10 3/uL 150-450 Normal (applies to non-numeric results) [facility] Mean Platelet Volume 9.4-12.4 Normal (applies to non-num yessenia results) [facility] Neutrophils% (Auto) 31.0-71.0 Above high normal [facility] Lymphocytes% (Auto) 20.0-55.0 Below low normal [facility] Monocytes% (Auto) 4.0-12.0 Normal (applies to non-numeri c results) [facility] Eosinophils% (Auto) 1.0-8.0 Normal (applies to non-nume alix results) [facility] Basophils% (Auto) 0.0-2.0 Normal (applies to non-numeri c results) [facility] Immature Granulocytes% (Auto) 0.0-2.0 Normal (brenda lies to non-numeric results) [facility] Neutrophils# (Auto) 1.50-6.20 Above high normal [facility] Lymphocytes# (Auto) 1.20-4.00 Normal (applies to non-nume alix results) [facility] Monocytes# (Auto) 0.00-0.90 Above high normal [facility] Eosinophils# (Auto) 0.00-0.50 Normal (applies to non-nume alix results) [facility] Basophils# (Auto) 0.00-0.20 Normal (applies to non-numeri c results) [facility] Immature Granulocytes# (Auto) 0.00-7.00 No rmal (applies to non-numeric results) [facility] ID Date Data Source [id number] 11/23/2020 07:58:00 AM EST [facility] Procedure Performed By: [facility] [address] [place] [address] Director: Joseph Parmar MD . Name Value Range Interpretation Code Description Data Jessica rce(s) Supporting Document(s) Urine Culture Normal (applies to non-numeric re sults) [facility] ID Date Data Source [id number] 09/09/2020 02:44:00 PM EST [facility] Name Value Range Interpretation Code Description Data Jessica rce(s) Supporting Document(s) SARS coronavirus 2 RNA [Presence] in Res piratory specimen by SALMA with probe detection [facility] This lab was ordered by [facility] a nd reported by [facility]. ID Date Data Source [id number] 09/19/2020 04:05:00 PM EST [facility] Name Value Range Interpretation Code Description Data Jessica rce(s) Supporting Document(s) ID Date Data Source [id number] 07/08/2020 01:35:00 AM EDT [facility] Name Value Range Interpretation Code Description Data Jessica rce(s) Supporting Document(s) Erythropoietin (EPO) result 2.6 - 18.5 Norm al (applies to non-numeric results) [facility] Test Performed by: [place] [address] Cash Person: Samuel Pierce M.D. Ph.D.; CLIA# [id number] ID Date Data Source [id number] 07/08/2020 01:35:00 AM EDT [facility] Name Value Range Interpretation Code Description Data Jessica rce(s) Supporting Document(s) [place] Free Light Chain [facility] REFERENCE VALUE------ 0.3300-1.94 Lambda Free Light Chain [facility] REFERENCE VALUE------ 0.5700-2.63 [place]/Lambda FLC Ratio [facility] REFERENCE VALUE------ 0.2600-1.65 Test Performed by: [place] [address] Cash Person: Samuel Pierce M.D. Ph.D.; CLIA# [id number] ID Date Data Source [id number] 07/05/2020 12:50:00 PM EDT [facility] Name Value Range Interpretation Code Description Data Jessica rce(s) Supporting Document(s) Erythropoietin (EPO) result 2.6 - 18.5 Norm al (applies to non-numeric results) [facility] Test Performed by: [place] [address] Cash Person: Samuel Pierce M.D. Ph.D.; CLIA# [id number] ID Date Data Source [id number] 07/05/2020 12:50:00 PM EDT [facility] Name Value Range Interpretation Code Description Data Jessica rce(s) Supporting Document(s) [place] Free Light Chain Very abnormal (applies t o non-numeric units [facility] REFERENCE VALUE------ 0.3300-1.94 Lambda Free Light Chain Very abnormal (applies to non-numeric units [facility] REFERENCE VALUE------ 0.5700-2.63 [place]/Lambda FLC Ratio Very abnormal (applies t o non-numeric units [facility] REFERENCE VALUE------ 0.2600-1.65 Test Performed by: [place] [address] Cash Person: Samuel Pierce M.D. Ph.D.; CLIA# [id number] ID Date Data Source [id number] 07/02/2020 09:20:00 PM EDT [facility] Name Value Range Interpretation Code Description Data Jessica rce(s) Supporting Document(s) FESAT Iron result 79 ug/dL 37-170 Normal (applies to non-numeri c results) [facility] Test Performed By: [facility] [address] [place] [address] Director: Radha Parmar MD FESAT TIBC result 245 ug/dL 265-[address] [facility] Test Performed By: [facility] [address] [place] [address] Director: Radha Parmar MD FESAT %Iron Saturation result 12.0-55.0 No rmal (applies to non-numeric results) [facility] Test Performed By: [facility] [address] [place] [address] Director: Radha Parmar MD ID Date Data Source [id number] 07/02/2020 09:20:00 PM T [facility] Name Value Range Interpretation Code Description Data Jessica rce(s) Supporting Document(s) LDH result 238 U/L 84-246 Normal (applies to non-numeric resul ts) [facility] Test Performed By: [facility] [address] [place] [address] Director: Radha Parmar MD ID Date Data Source [id number] 07/02/2020 06:34:00 PM EDT [facility] Name Value Range Interpretation Code Description Data Jessica rce(s) Supporting Document(s) Iron FE Level 79 ug/dL 37-170 Normal (applies to non-numeric re sults) [facility] Test Performed By: [facility] [address] [place] [address] Director: Radha Parmar MD Total Iron Binding Capacity 245 ug/dL 265-497 Below low normal [facility] Test Performed By: [facility] [address] [place] [address] Director: Radha Parmar MD %Iron Saturation 12.0-55.0 Normal (applies to non-numeric results) [facility] Test Performed By: [facility] Laboratory [address] [place] [address] Director: Radha Parmar MD ID Date Data Source [id number] 07/02/2020 06:34:00 PM EDT [facility] Name Value Range Interpretation Code Description Data Jessica rce(s) Supporting Document(s) LDH 238 U/L 84-246 Normal (applies to non-numeric resul ts) [facility] [address] [place] [address] Director: aRdha Parmar MD ID Date Data Source [id number] 07/02/2020 12:43:00 PM EDT [facility] Name Value Range Interpretation Code Description Data Jessica rce(s) Supporting Document(s) Reticulocyte Count 0.50-1.81 Normal (applies to non-numer ic results) [facility] Slide has been reviewed and findings con firmed by a technologist/p 3 armament/ordnance ima technician. ID Date Data Source [id number] 07/02/2020 12:43:00 PM EDT [facility] Name Value Range Interpretation Code Description Data Jessica rce(s) Supporting Document(s) White Blood Count 3.5-10.5 Normal (applies to non-numeri c results) [facility] Red Blood Count 3.90-5.00 Below low normal [facility] Hemoglobin 12.0-15.[address] [facility] ospital Hematocrit 34.9-44.5 Normal (applies to non-numeric resul ts) [facility] Mean Corpuscular Volume 81.2-95.1 Above high normal [facility] Mean Corpuscular Hgb 25.6-32.[address] [facility] Mean Corpuscular Hgb Conc 32.0-36.0 Normal (applies to no n-numeric results) [facility] Red Cell Distribution Width 11.9-15.5 Normal (appli es to non-numeric results) [facility] Platelet Count 255 x10 3/uL 150-450 Normal (applies to non-numeric results) [facility] Mean Platelet Volume 9.4-12.4 Normal (applies to non-num yessenia results) [facility] Neutrophils% (Auto) 31.0-71.0 Normal (applies to non-nume alix results) [facility] Lymphocytes% (Auto) 20.0-55.0 Normal (applies to non-nume alix results) [facility] Monocytes% (Auto) 4.0-12.0 Above high normal [facility] Eosinophils% (Auto) 1.0-8.0 Normal (applies to non-nume alix results) [facility] Basophils% (Auto) 0.0-2.0 Normal (applies to non-numeri c results) [facility] Immature Granulocytes% (Auto) 0.0-2.0 Normal (brenda lies to non-numeric results) [facility] Neutrophils# (Auto) 1.50-6.20 Normal (applies to non-nume alix results) [facility] Lymphocytes# (Auto) 1.20-4.00 Normal (applies to non-nume alix results) [facility] Monocytes# (Auto) 0.00-0.90 Above high normal [facility] Eosinophils# (Auto) 0.00-0.50 Normal (applies to non-nume alix results) [facility] Basophils# (Auto) 0.00-0.20 Normal (applies to non-numeri c results) [facility] Immature Granulocytes# (Auto) 0.00-7.00 No rmal (applies to non-numeric results) [facility] ID Date Data Source [id number] 07/02/2020 03:37:00 PM EDT [facility] Harish Parmar MD, Director [facility] [address] [place] [address] [place] [id number] Name: DEION JADE [facility] Rec #: [id number]: 1940 Age/Sex: 80/F Attending Provider: Amauri Yoo MD Date of Service: 06/27/20 Location: [facility] CC: Amauri Yoo MD Specimen: [id number] Received: [id number] Status: MARKOS Madrigal Num: [id number] Collected: [id number] Sp Type: SURGICAL Subm Doc: Amauri Yoo MD Collected By: Amauri Yoo MD CLINICAL DIAGNOSIS C44.310, BCC. GROSS DESCRIPTION:Received in formalin labeled "Deion Jade and right christian" is a single discoid fragmentof borden skin along with two smaller triangular shaped pieces of skin, aggregating to 1.4 x 1x 0.2 cm. The margins of the discoid piece of tissue are inked black. That piece is stepsectioned and entirely submitted in cassette 1. The triangular pieces are submitted incassette 2.sl/ MICROSCOPIC INTERPRETATION The patient has a recent history (ProPath accession ID: [id number]/Lab Reference ID:[id number]) of skin, right christian area: basal cell carcinoma, nodular and sclerosing types.The patient now presents for wide excision (our [id number]). In this current wide excision,centrally, there are changes consistent with recent surgery including fibrosis andinflammation. Residual basal cell carcinoma is not identified. The lateral and deepresection margins are negative for malignancy.tali/logan FINAL DIAGNOSIS:Right christian skin lesion excision: Excised surgical site with surgical site changes; no residual evidence of basal cellcarcinoma; with lateral and deep resection margins negative for malignancy.ss/sl(1) Signed (signature on file) Joseph Parmar MD 07/02/20 1533 [facility] Radha Parmar MD, Director [facility] [address] [place] [address] [place] [address] ------ ------ Name: DEION JADE [facility] Rec #: [id number]: 1940 Age/Sex: 80/F Attending Provider: Amauri Yoo MD Date of Service: 06/27/20 Location: [facility] CC: Amauri Yoo MD CONTINUED ON NEXT PAGE Name Value Range Interpretation Code Description Data Jessica rce(s) Supporting Document(s) ID Date Data Source [id number] 06/28/2020 08:05:00 AM EDT [facility] Procedure Performed By: [facility] [address] [place] [address] Director: Joseph Parmar MD Mixed anival: Mixed anival, probable contamination. Name Value Range Interpretation Code Description Data [facility] rce(s) Supporting Document(s) ID Date Data Source [id number] 06/28/2020 07:44:00 AM EDT [facility] Procedure Performed By: [facility] [address] [place] [address] Director: Joseph Parmar MD Name Value Range Interpretation Code Description Data [facility] rce(s) Supporting Document(s) Urine Culture Normal (applies to non-numeric re sults) [facility] ID Date Data Source [id number] 06/25/2020 07:53:00 PM EDT [facility] Collected By: Nurse Initials: ZB Time Collected: 1902 Collected By: Nurse Initials: ZB Time Collected: 1902 Name Value Range Interpretation Code Description Data [facility] rce(s) Supporting Document(s) Color,Urine Colorl-Dk Y Normal (applies to non-numeric res ults) [facility] Clarity,Urine Clear Normal (applies to non-numeric re sults) [facility] Specific Nunda,Urine 1.005-1.030 Normal (applies to non- numeric results) [facility] pH,Urine 5.0-8.0 Normal (applies to non-numeric resul ts) [facility] Protein,Urine Negative [facility] Glucose,Urine Negative Normal (applies to non-numeric re sults) [facility] Ketones,Urine Negative Normal (applies to non-numeric re sults) [facility] Blood,Urine Negative [facility] Bil[facility],Urine Negative Normal (applies to non-numeric results) [facility] Urobilinogen,Urine 0.2-1.0 Normal (applies to non-numer ic results) [facility] Leukocyte Esterase,Urine Negative [facility] Nitrite,Urine Negative Normal (applies to non-numeric re sults) [facility] ID Date Data Source [id number] 06/25/2020 07:53:00 PM EDT [facility] Collected By: Nurse Initials: ZB Time Collected: 1902 Collected By: Nurse Initials: ZB Time Collected: 1902 Name Value Range Interpretation Code Description Data Jessica rce(s) Supporting Document(s) RBC,Urine None Seen [facility] WBC,Urine None Seen [facility] Casts,Urine None Seen Normal (applies to non-numeric resu lts) [facility] Epithelial Cells,Urine None - Few Normal (applies to non-n umeric results) [facility] Squamous Cells,Urine None Seen [facility] Bacteria,Urine None Seen [facility] ital ID Date Data Source [id number] 06/25/2020 07:05:00 PM EDT [facility] Name Value Range Interpretation Code Description Data Jessica rce(s) Supporting Document(s) White Blood Count 3.5-10.5 Normal (applies to non-numeri c results) [facility] Red Blood Count 3.90-5.00 Below low normal [facility] Hemoglobin 12.0-15.[address] [facility] ospital Hematocrit 34.9-44.5 Normal (applies to non-numeric resul ts) [facility] Mean Corpuscular Volume 81.2-95.1 Above high normal [facility] Mean Corpuscular Hgb 25.6-32.[address] [facility] Mean Corpuscular Hgb Conc 32.0-36.0 Below low normal [facility] Red Cell Distribution Width 11.9-15.5 Normal (appli es to non-numeric results) [facility] Platelet Count 266 x10 3/uL 150-450 Normal (applies to non-numeric results) [facility] Mean Platelet Volume 9.4-12.4 Normal (applies to non-num yessenia results) [facility] Total Cells Counted (Manual) 100 Normal (applies to non-numeric results) [facility] Neutrophils% (Manual) 57 % 31-71 Normal (applies to non-nu meric results) [facility] Lymphocytes% (Manual) 30 % 20-55 Normal (applies to non-nu meric results) [facility] Monocytes% (Manual) 11 % 4-12 Normal (applies to non-nume alix results) [facility] Eosinophils% (Manual) 2 % 1-8 Normal (applies to non-nu meric results) [facility] Platelet Estimate (Manual) Agreement Normal (applie s to non-numeric results) [facility] Slide Reviewed By Normal (applies to non-numeri c results) [facility] Slide has been reviewed and findings con firmed by a technologist/p 3 armament/ordnance ima technician. ID Date Data Source [id number] 06/25/2020 06:39:00 PM EDT [facility] Name Value Range Interpretation Code Description Data Jessica rce(s) Supporting Document(s) Lipase 276 U/L 73-393 Normal (applies to non-numeric resul ts) [facility] ID Date Data Source [id number] 06/25/2020 06:39:00 PM [facility] Name Value Range Interpretation Code Description Data Jessica rce(s) Supporting Document(s) Amylase 111 U/L 25-115 Normal (applies to non-numeric resul ts) [facility] ID Date Data Source [id number] 06/25/2020 06:39:00 PM EDT [facility] Name Value Range Interpretation Code Description Data Jessica rce(s) Supporting Document(s) Sodium 137 mmol/L 136-145 Normal (applies to non-numeric resul ts) [facility] Potassium 3.5-5.1 Normal (applies to non-numeric resul ts) [facility] Chloride 98 mmol/L 98-107 Normal (applies to non-numeric resul ts) [facility] Carbon Dioxide CO2 21-32 Normal (applies to non-numer ic results) [facility] Anion Gap 5.0-16.0 Normal (applies to non-numeric resul ts) [facility] BUN 28 mg/dL 7-[address] [facility] ospital Creatinine,Serum 0.7-1.2 Above high normal [facility] GFR 9 mL/min >60 Below low normal [facility] spital Glucose Level 144 mg/dL 60-99 Above high normal [facility] Reference range is only applicable when patient is fasting Note the following drug interference: Sulfasalazine Sulfapyridine Can see falsely depressed Can see falsely elevated result with up to 17% results with up to 11% decrease in measurement increase in measurement Recommend patients be collected for this test prior to administration of either drug. Calcium 8.5-10.1 Below low normal [facility] spital Bilirubin,Total 0.1-1.9 Normal (applies to non-numeric results) [facility] SGOT(AST) 22 U/L 15-37 Normal (applies to non-numeric resul ts) [facility] Note the following drug interference: Sulfasalazine Sulfapyridine Can see falsely depressed Can see falsely elevated result with up to 10% results with up to 10% decrease in measurement increase in measurement Recommend patients be collected for this test prior to administration of either drug. SGPT(ALT) 19 U/L 12-78 Normal (applies to non-numeric resul ts) [facility] Note the following drug interference: Sulfasalazine Sulfapyridine Can see falsely depressed Can see falsely elevated result with up to 29% results with up to 10% decrease in measurement increase in measurement Recommend patients be collected for this test prior to administration of either drug. Alkaline Phosphatase 112 U/L 38-126 Normal (applies to non-num yessenia results) [facility] can increase Alkaline Phosp le vels up to 2 times the normal adult value. Normal values for children and adolescents are 2 to 3 times the normal adult value. Total Protein 6.0-8.2 Normal (applies to non-numeric re sults) [facility] Albumin Level 3.4-5.0 Below low normal [facility] ID Date Data Source [id number] 06/25/2020 05:54:00 PM EDT [facility] Reference range: Negative for occult blood.06/25Negative Name Value Range Interpretation Code Description Data Jessica rce(s) Supporting Document(s) ID Date Data Source [id number] 06/26/2020 11:48:00 AM EDT [facility] Imaging Services Department Imaging Report [address] [place], [place] [address] %(RAD)RES..mtdd.print.filter("line") Name: DEION JADE : 1940 Age/Sex: 80F Ordering Provider: DEO Cruz Med Rec #: [id number] Reg Status: [facility] Room #: Date of Service: 06/25/20 Report Number: [id number] cc:Pablito Gillis NP Send Report To: [id number] CT/CT Abdomen & Pelvis No Contras Reason [...] Alhaji Head DO> 06/27/20 1154 Dictation Date/Time: 06/25/201816 Transcribed Date/Time: 06/26/20 1148 Curing Oven Attendant: NGUYỄN Name Value Range Interpretation Code Description Data Jessica rce(s) Supporting Document(s) ID Date Data Source [id number] 06/23/2020 11:09:00 PM EDT [facility] EDUARDO RocaSherman [address] [address] FOLLOW UP NOTENAME: DEION JADE APHYSICIAN: RYANN NORRISATE OF SERVICE: 06/18/20DATE OF : 36ACCOUNT #: [id number]: DEION JADEDate: Jun 18, 2020DOB: 1940Physician: Dr. Zachary Mason M.D.Age: 80Note Title: Hematology/Medical Oncology Follow [...] depression andeuphoria.Vital Signs:Performed on Jun 18, 2020 13:66Ecykeokcnik39.6 NDkevb88 /buuQxnniszwqrs97 /qoxRD242/74Pulse Oximetry (O2 Sat)96 %Fall RiskModerate RiskPerformance Status:2 [...] immunoglobulin level. [facility] any evidence of lytic lesion. At this timemyeloma or myeloma (smoldering/light chain) is not suspected.Plan:Based on the laboratory findings we have, I do not think the patient hasevidence of MGUS Or evidence of myeloma. [place] lambda ratio is explained byend-stage renal disease, [...] . Nephrology noteshould be obtainedElectronically signed by:Dr. Zachary MasonCC: Name Value Range Interpretation Code Description Data Jessica rce(s) Supporting Document(s) Procedure Social History No Information Vital Signs ID Date Data Source [id number] 07/09/2021 12:34:00 PM EDT [facility] spital Name Value Range Interpretation Code Description Data Source(s) Weight Measurement Method 8 8 [facility] Weight (Calculated Kilograms) 81.65 81.65 [facility] Weight 2240 2240 [facility] pital Temperature Source 7 7 [facility] Temperature 97.9 97.9 [facility] spital Respiratory Effort 1 1 [facility] Respiratory Rate 16 16 [facility] Pulse Assessment Method 4 4 [facility] Pulse Rate 61 61 [facility] pital Height (Calculated Centimeters) 167.64 167. 64 [facility] Height 66 66 [facility] pital Blood Pressure 168/58 168/58 [facility] Body Mass Index (BMI) 29.0 29.0 [facility] Weight (Calculated Kilograms) 81.65 81.65 [facility] Height (Calculated Centimeters) 167.64 167. 64 [facility] Body Mass Index (BMI) 29.0 29.0 [facility] Weight (Calculated Kilograms) 81.65 81.65 [facility] Height (Calculated Centimeters) 167.64 167. 64 [facility] Body Mass Index (BMI) 29.0 29.0 [facility] ID Date Data Source [id number] 04/13/2021 12:16:00 PM EDT [facility] Name Value Range Interpretation Code Description Data Source(s) Weight (Calculated Kilograms) 74.30 74.30 [facility] Height (Calculated Centimeters) 170.18 170. 18 [facility] Body Mass Index (BMI) 25.6 25.6 [facility] ID Date Data Source [id number] 04/16/2021 07:48:00 AM EDT [facility] spital Name Value Range Interpretation Code Description Data Source(s) Weight Measurement Method 5 5 [facility] Weight (Calculated Kilograms) 81.65 81.65 [facility] Weight 1999 1999 [facility] pital Temperature Source 7 7 [facility] Temperature 98 98 [facility] spital Respiratory Effort 1 1 [facility] Respiratory Rate 20 20 [facility] Pulse Assessment Method 4 4 [facility] Weight Measurement Method 5 5 [facility] Weight (Calculated Kilograms) 81.65 81.65 [facility] 1999 [facility] 1 1 [facility] Respiratory Rate 20 20 [facility] Pulse Rate 80 80 [facility] pital Height (Calculated Centimeters) 167.64 167. 64 [facility] Blood Pressure 123/48 123/48 [facility] Body Mass Index (BMI) 29.0 29.0 [facility] Weight Measurement Method 5 5 [facility] Weight (Calculated Kilograms) 81.65 81.65 [facility] Weight 1999 1999 [facility] pital Respiratory Effort 1 1 [facility] Respiratory Rate 20 20 [facility] Pulse Rate 86 86 [facility] pital Height (Calculated Centimeters) 167.64 167. 64 [facility] Blood Pressure 200/85 200/85 [facility] Body Mass Index (BMI) 29.0 29.0 [facility] Weight Measurement Method 5 5 [facility] Weight (Calculated Kilograms) 81.65 81.65 [facility] Weight 1999 1999 [facility] pital Respiratory Effort 1 1 [facility] Respiratory Rate 20 20 [facility] Pulse Rate 86 86 [facility] pital Height (Calculated Centimeters) 167.64 167. 64 [facility] Blood Pressure 200/85 200/85 [facility] Body Mass Index (BMI) 29.0 29.0 [facility] Weight (Calculated Kilograms) 81.65 81.65 [facility] Height (Calculated Centimeters) 167.64 167. 64 [facility] Body Mass Index (BMI) 29.0 29.0 [facility] Weight (Calculated Kilograms) 81.65 81.65 [facility] Height (Calculated Centimeters) 167.64 167. 64 [facility] Body Mass Index (BMI) 29.0 29.0 [facility] ID Date Data Source [id number] 2021 10:58:00 AM EDT [facility] spital Name Value Range Interpretation Code Description Data Source(s) Weight Measurement Method 8 8 [facility] Weight (Calculated Kilograms) 81.65 81.65 [facility] Weight 2400 2400 [facility] pital Temperature Source 7 7 [facility] Temperature 96.7 96.7 [facility] spital Respiratory Effort 1 1 [facility] Respiratory Rate 18 18 [facility] Pulse Assessment Method 4 4 [facility] Pulse Rate 74 74 [facility] pital Height (Calculated Centimeters) 167.64 167. 64 [facility] 66 [facility] 174/74 174/74 [facility] Body Mass Index (BMI) 29.0 29.0 [facility] Weight Measurement Method 8 8 [facility] Weight (Calculated Kilograms) 81.65 81.65 [facility] Weight 2400 2400 [facility] pital Temperature Source 7 7 [facility] Temperature 96.7 96.7 [facility] spital Respiratory Effort 1 1 [facility] Respiratory Rate 18 18 [facility] Pulse Assessment Method 4 4 [facility] Pulse Rate 77 77 [facility] pital Height (Calculated Centimeters) 167.64 167. 64 [facility] 66 [facility] 184/75 184/75 [facility] Body Mass Index (BMI) 29.0 29.0 [facility] Weight Measurement Method 8 8 [facility] Weight (Calculated Kilograms) 81.65 81.65 [facility] Weight 2400 2400 [facility] pital Temperature Source 7 7 [facility] Temperature 96.7 96.7 [employer] [facility] spital Respiratory Effort 1 1 [facility] Respiratory Rate 18 18 [facility] Pulse Assessment Method 4 4 [facility] Pulse Rate 77 77 [facility] pital Height (Calculated Centimeters) 167.64 167. 64 [facility] 66 66 [facility] 184/75 184/75 [facility] Body Mass Index (BMI) 29.0 29.0 [facility] Weight Measurement Method 8 8 [facility] Weight (Calculated Kilograms) 81.65 81.65 [facility] Weight 2400 2400 [facility] pital Temperature Source 7 7 [facility] Temperature 96.7 96.7 [employer] [facility] spital Respiratory Effort 1 1 [facility] Respiratory Rate 18 18 [facility] Pulse Assessment Method 4 4 [facility] Pulse Rate 77 77 [facility] Height (Calculated Centimeters) 167.64 167. 64 [facility] Height 66 66 [facility] Blood Pressure 184/75 184/75 [facility] Body Mass Index (BMI) 29.0 29.0 [facility] Weight (Calculated Kilograms) 81.65 81.65 [facility] Height (Calculated Centimeters) 167.64 167. 64 [facility] Body Mass Index (BMI) 29.0 29.0 [facility] ID Date Data Source [id number] 01/05/2021 12:52:00 PM EDT [facility] spital Name Value Range Interpretation Code Description Data Source(s) Weight (Calculated Kilograms) 81.65 81.65 [facility] Temperature Source 3 3 [facility] Temperature 98.0 98.0 [facility] spital Respiratory Effort 1 1 [facility] Respiratory Rate 18 18 [facility] Pulse Assessment Method 4 4 [facility] 65 65 [facility] Height (Calculated Centimeters) 167.64 167. 64 [facility] Blood Pressure 179/70 179/70 [facility] Body Mass Index (BMI) 29.0 29.0 [facility] Weight (Calculated Kilograms) 81.65 81.65 [facility] Temperature Source 3 3 [facility] Temperature 98.0 98.0 [facility] spital Respiratory Effort 1 1 [facility] Respiratory Rate 18 18 [facility] Pulse Assessment Method 4 4 [facility] Pulse Rate 65 65 [facility] pital Height (Calculated Centimeters) 167.64 167. 64 [facility] Blood Pressure 179/70 179/70 [facility] Body Mass Index (BMI) 29.0 29.0 [facility] Weight (Calculated Kilograms) 81.65 81.65 [facility] Height (Calculated Centimeters) 167.64 167. 64 [facility] Body Mass Index (BMI) 29.0 29.0 [facility] Weight (Calculated Kilograms) 81.65 81.65 [facility] Height (Calculated Centimeters) 167.64 167. 64 [facility] Body Mass Index (BMI) 29.0 29.0 [facility] ID Date Data Source [id number] 11/28/2020 09:17:00 AM EST [facility] Name Value Range Interpretation Code Description Data Source(s) Weight (Calculated Kilograms) 81.65 81.65 [facility] Weight 2496 2496 [facility] pital Temperature Source 7 7 [facility] Temperature 98.8 98.8 [facility] spital Respiratory Effort 1 1 [facility] Respiratory Rate 16 16 [facility] Pulse Assessment Method 4 4 [facility] Weight (Calculated Kilograms) 81.65 81.65 [facility] Weight 2496 2496 [facility] pital Temperature Source 7 7 [facility] Temperature 99.9 99.9 [facility] spital Respiratory Effort 1 1 [facility] Respiratory Rate 18 18 [facility] Pulse Rate 68 68 [facility] Height (Calculated Centimeters) 167.64 167. 64 [facility] Blood Pressure 134/63 134/63 [facility] Body Mass Index (BMI) 29.0 29.0 [facility] Weight (Calculated Kilograms) 81.65 81.65 [facility] Height (Calculated Centimeters) 167.64 167. 64 [facility] Body Mass Index (BMI) 29.0 29.0 [facility] Weight (Calculated Kilograms) 81.65 81.65 [facility] Height (Calculated Centimeters) 167.64 167. 64 [facility] Body Mass Index (BMI) 29.0 29.0 [facility] ID Date Data Source [id number] 11/23/2020 07:58:00 AM EST [facility] Name Value Range Interpretation Code Description Data Source(s) Weight (Calculated Kilograms) 74.30 74.30 [facility] Height (Calculated Centimeters) 170.18 170. 18 [facility] Body Mass Index (BMI) 25.6 25.6 [facility] ID Date Data Source [id number] 11/23/2020 08:10:00 AM [facility] Name Value Range Interpretation Code Description Data Source(s) Weight (Calculated Kilograms) 81.65 81.65 [facility] Height (Calculated Centimeters) 167.64 167. 64 [facility] Body Mass Index (BMI) 29.0 29.0 [facility] Weight (Calculated Kilograms) 81.65 81.65 [facility] Height (Calculated Centimeters) 167.64 167. 64 [facility] Body Mass Index (BMI) 29.0 29.0 [facility] ID Date Data Source [id number] 11/14/2020 07:40:00 AM [facility] Name Value Range Interpretation Code Description Data Source(s) Weight (Calculated Kilograms) 74.30 74.30 [facility] Height (Calculated Centimeters) 170.18 170. 18 [facility] Body Mass Index (BMI) 25.6 25.6 [facility] ID Date Data Source [id number] 11/17/2020 07:33:00 PM [facility] Name Value Range Interpretation Code Description Data Source(s) Weight (Calculated Kilograms) 74.30 74.30 [facility] Height (Calculated Centimeters) 170.18 170. 18 [facility] Body Mass Index (BMI) 25.6 25.6 [facility] ID Date Data Source [id number] 09/04/2020 08:45:00 AM [facility] Name Value Range Interpretation Code Description Data Source(s) Weight (Calculated Kilograms) 74.30 74.30 [facility] Height (Calculated Centimeters) 170.18 170. 18 [facility] Body Mass Index (BMI) 25.6 25.6 [facility] ID Date Data Source [id number] 07/08/2020 01:35:00 AM EDT [facility] Name Value Range Interpretation Code Description Data Source(s) Weight (Calculated Kilograms) 74.30 74.30 [facility] Height (Calculated Centimeters) 170.18 170. 18 [facility] Body Mass Index (BMI) 25.6 25.6 [facility] ID Date Data Source [id number] 08/16/2020 07:31:00 AM EST [facility] Name Value Range Interpretation Code Description Data Source(s) Weight (Calculated Kilograms) 74.30 74.30 [facility] Height (Calculated Centimeters) 170.18 170. 18 [facility] Body Mass Index (BMI) 25.6 25.6 [facility] ID Date Data Source [id number] 07/05/2020 12:50:00 PM [facility] spital Name Value Range Interpretation Code Description Data Source(s) Weight (Calculated Kilograms) 81.65 81.65 [facility] Height (Calculated Centimeters) 167.64 167. 64 [facility] Body Mass Index (BMI) 29.0 29.0 [facility] ID Date Data Source [id number] 07/02/2020 03:37:00 PM [facility] Name Value Range Interpretation Code Description Data Source(s) Weight (Calculated Kilograms) 74.30 74.30 [facility] Height (Calculated Centimeters) 170.18 170. 18 [facility] Body Mass Index (BMI) 25.6 25.6 [facility] ID Date Data Source [id number] 06/28/2020 07:44:00 AM [facility] Name Value Range Interpretation Code Description Data Source(s) Weight (Calculated Kilograms) 74.30 74.30 [facility] Height (Calculated Centimeters) 170.18 170. 18 [facility] Body Mass Index (BMI) 25.6 25.6 [facility] ID Date Data Source [id number] 06/28/2020 08:05:00 AM [facility] spital Name Value Range Interpretation Code Description Data Source(s) Weight Measurement Method 8 8 [facility] Weight (Calculated Kilograms) 81.65 81.65 [facility] Weight 2400 2400 [facility] pital Temperature Source 7 7 [facility] Temperature 97.4 97.4 [facility] spital Respiratory Effort 1 1 [facility] Respiratory Rate 18 18 [facility] Pulse Assessment Method 4 4 [facility] Pulse Rate 76 76 [facility] pital Height (Calculated Centimeters) 167.64 167. 64 [facility] Height 66 66 [facility] pital Blood Pressure 174/82 174/82 [facility] Body Mass Index (BMI) 29.0 29.0 [facility] Weight Measurement Method 8 8 [facility] Weight (Calculated Kilograms) 81.65 81.65 [facility] Weight 2400 2400 [facility] pital Temperature Source 7 7 [facility] Temperature 97.4 97.4 [facility] spital Respiratory Effort 1 1 [facility] Respiratory Rate 18 18 [facility] Pulse Assessment Method 4 4 [facility] Pulse Rate 71 71 [facility] pital Height (Calculated Centimeters) 167.64 167. 64 [facility] 66 66 [facility] 173/65 173/65 [facility] Body Mass Index (BMI) 29.0 29.0 [facility] Weight (Calculated Kilograms) 81.65 81.65 [facility] Height (Calculated Centimeters) 167.64 167. 64 [facility] Body Mass Index (BMI) 29.0 29.0 [facility] ID Date Data Source [id number] 05/21/2020 05:30:00 PM EDT [facility] spital Name Value Range Interpretation Code Description Data Source(s) Weight Measurement Method 8 8 [facility] Weight (Calculated Kilograms) 81.65 81.65 [facility] Weight 2320 2320 [facility] pital Temperature Source 7 7 [facility] Temperature 97.2 97.2 [facility] spital Respiratory Effort 1 1 [facility] Respiratory Rate 16 16 [facility] Pulse Assessment Method 4 4 [facility] Pulse Rate 73 73 [facility] pital Height (Calculated Centimeters) 167.64 167. 64 [facility] Height 66 66 [facility] pital Blood Pressure 168/68 168/68 [facility] Body Mass Index (BMI) 29.0 29.0 [facility] Weight (Calculated Kilograms) 81.65 81.65 [facility] Height (Calculated Centimeters) 167.64 167. 64 [facility] Body Mass Index (BMI) 29.0 29.0 [facility] Weight (Calculated Kilograms) 81.65 81.65 [facility] Height (Calculated Centimeters) 167.64 167. 64 [facility] Body Mass Index (BMI) 29.0 29.0 [facility] ID Date Data Source [id number] 07/23/2020 07:36:00 AM EDT [facility] Name Value Range Interpretation Code Description Data Source(s) Weight (Calculated Kilograms) 74.30 74.30 [facility] Height (Calculated Centimeters) 170.18 170. 18 [facility] Body Mass Index (BMI) 25.6 25.6 [facility] ID Date Data Source [id number] 07/22/2020 12:07:00 PM EDT [facility] Name Value Range Interpretation Code Description Data Source(s) [facility] 67[facility]8 [facility].72 centimeters 172.72 centimeter [facility] WEIGHT 67.8 kilos 67.8 kilos [facility] al HEIGHT 172.72 centimeters 172.72 centimeter [facility]
[2021-07-18] MEDS ORDERED: BACIOIN5 OP (19:23)
[2021-07-18] MEDS ORDERED: POLY1BAN TP (19:24)
[2021-07-18] MEDS ORDERED: BACITRACIN OINTMENT 30GM TUBE TOP PRN (19:25)
[2021-07-18] MEDS ORDERED: GAUZ1BAN TP (19:25)
== END 2021-07-18 21:20 | disposition home or self-care (01) ==
LOC: M ED 16:46
DX: T23.322A Burn of third degree of single left finger (nail) except thumb, initial encounter (principal); T31.0 Burns involving less than 10% of body surface; X12.XXXA Contact with other hot fluids, initial encounter; Y92.099 Unspecified place in other non-institutional residence as the place of occurrence of the external cause; I25.10 Atherosclerotic heart disease of native coronary artery without angina pectoris; E10.9 Type 1 diabetes mellitus without complications; N18.6 End stage renal disease; Z95.1 Presence of aortocoronary bypass graft; Z99.2 Dependence on renal dialysis; Z79.82 Long term (current) use of aspirin; Z79.4 Long term (current) use of insulin; Z79.899 Other long term (current) drug therapy; Z88.0 Allergy status to penicillin; Z88.5 Allergy status to narcotic agent; Z88.1 Allergy status to other antibiotic agents

== ENCOUNTER 2021-08-13 16:37 | Emergency (ER) | payer MEDICARE, MEDICAID ==
[~2021-08-13 16:37] MED LIST changes: +BACIOIN5 OP; +GAUZ1BAN TP; +POLY1BAN TP
[2021-08-13] MEDS ORDERED: LIDOCAINE 5% (LIDODERM) PATCH TD ONE ×2 (17:00→17:05)
--- NOTE | 2021-08-13 17:31 | REP ---
INDICATION: right lateral rib pain. COMPARISON: 09/09/2020. TECHNIQUE: Four views right ribs, frontal view chest. FINDINGS: There are old healed fractures of the lateral aspects of the right 6th and 7th ribs. No acute rib fracture is seen radiographically. No bone lesion is seen. Multiple sternal wires are present. A right axillary stent is noted. There is cardiomegaly. There is calcification and tortuosity of the thoracic aorta. There are chronic interstitial densities in the lungs, with no evidence for acute infiltrate. IMPRESSION: No acute abnormalities of right ribs. <Electronically signed by Mando Aguero > 08/13/21 [id number]
[2021-08-13] MEDS ORDERED: LIDO5DIS41 TOP (18:38)
--- OUTSIDE RECORDS SUMMARY | 2021-08-13 18:49 | CCD ---
Author Author [facility] Organization [facility] Address Unknown Phone Unavailable Care Team Providers Care Backend Java Developer Name Role Phone JO-ANN WEBBER MD Unavailable Unavailable JO-ANN WEBBER MD Unavailable Unavailable JO-ANN WEBBER MD Unavailable Unavailable JO-ANN WEBBER MD Unavailable Unavailable JO-ANN WEBBER MD Unavailable Unavailable JO-ANN WEBBER MD Unavailable Unavailable JO-ANN WEBBER MD Unavailable Unavailable JO-ANN WEBBER MD Unavailable Unavailable JO-ANN WEBBER MD Unavailable Unavailable JO-ANN WEBBER MD Unavailable Unavailable JO-ANN WEBBER MD Unavailable Unavailable JO-ANN WEBBER MD Unavailable Unavailable JO-ANN WEBBER MD Unavailable Unavailable JO-ANN WEBBER MD Unavailable Unavailable JO-ANN WEBBER MD Unavailable Unavailable JO-ANN WEBBER MD Unavailable Unavailable JO-ANN WEBBER MD Unavailable Unavailable JO-ANN WEBBER MD Unavailable Unavailable JO-ANN WEBBER MD Unavailable Unavailable JO-ANN WEBBER MD Unavailable Unavailable JO-ANN WEBBER MD Unavailable Unavailable JO-ANN WEBBER MD Unavailable Unavailable JO-ANN WEBBER MD Unavailable Unavailable JO-ANN WEBBER MD Unavailable Unavailable JO-ANN WEBBER MD Unavailable Unavailable JO-ANN WEBBER MD Unavailable Unavailable JO-ANN WEBBER MD Unavailable Unavailable JO-ANN WEBBER MD Unavailable Unavailable Overton, F Eduardo PA Unavailable Unavailable Overton, F Eduardo PA Unavailable Unavailable Overton, F Eduardo PA Unavailable Unavailable Overton, F Eduardo PA Unavailable Unavailable Ana Paula, F Eduardo PA Unavailable Unavailable Overton, F Eduardo PA Unavailable Unavailable Overton, F Eduardo PA Unavailable Unavailable Ana Paula, F Eduardo PA Unavailable Unavailable Overton, F Eduardo PA Unavailable Unavailable Ana Paula, F Eduardo PA Unavailable Unavailable Morro Yoo MD Unavailable Unavailable [...] Unavailable Unavailable Morro Yoo MD Unavailable Unavailable Melida SILVA CAR EXAMINER Unavailable Unavailable Melida SILVA CAR EXAMINER Unavailable Unavailable ZEMelida OCHOA YESSICA CAR EXAMINER Unavailable Unavailable LD, WAJEEHA DO Unavailable [phone] LD, WAJEEHA DO Unavailable [phone] LD, WAJEEHA DO Unavailable [phone] LD, WAJEEHA DO Unavailable [phone] LD, WAJEEHA DO Unavailable [phone] LD, WAJEEHA DO Unavailable [phone] LD, WAJEEHA DO Unavailable [phone] LD, WAJEEHA DO Unavailable [phone] LD, WAJEEHA DO Unavailable [phone] LD, WAJEEHA DO Unavailable [phone] LD, WAJEEHA DO Unavailable [phone] LD, WAJEEHA DO Unavailable [phone] LD, WAJOSEA DO Unavailable [phone] LD, RAQUELA DO Unavailable [phone] LD, RAQUELA DO Unavailable [phone] LD, RAQUELA DO Unavailable [phone] LD, RAQUELA DO Unavailable [phone] LD, RAQUELA DO Unavailable [phone] Alejandro MIN MD Unavailable Unavailable MECHELLEAlejandro MAHARAJ MD Unavailable Unavailable MECHELLEAlejandro RODRIGUEZ MD Unavailable Unavailable MECHELLEAlejandro RODRIGUEZ MD Unavailable Unavailable Alejandro MIN MD Unavailable Unavailable MECHELLEAlejandro MAHARAJ MD Unavailable Unavailable MECHELLEAlejandro RODRIGUEZ MD Unavailable Unavailable MECHELLEAlejandro MAHARAJ MD Unavailable Unavailable MECHELLEAlejandro RODRIGUEZ MD Unavailable Unavailable Alejandro MIN MD Unavailable Unavailable Alejandro MIN MD Unavailable Unavailable MECHELLEAlejandro MAHARAJ MD Unavailable Unavailable MECHELLEAlejandro MAHARAJ MD Unavailable Unavailable Alejandro MIN MD Unavailable [...] Unavailable MECHELLE S MAURY GRESHAM Unavailable Unavailable MECHELLE S MAURY GRESHAM Unavailable Unavailable MECHELLEAlejandro MAHARAJ MD Unavailable Unavailable MECHELLE S MAUYR GRESHAM Unavailable Unavailable MECHELLEAlejandro MAHARAJ MD Unavailable Unavailable MECHELLEAlejandro MAHARAJ MD Unavailable Unavailable MECHELLEAlejandro MAHARAJ MD Unavailable Unavailable MECHELLEAlejandro MAHARAJ MD Unavailable Unavailable MECHELLEAlejandro MD Unavailable Unavailable MECHELLEAlejandro MD Unavailable Unavailable MECHELLE S MAURY GRESHAM Unavailable Unavailable MECHELLE S MAURY GRESHAM Unavailable Unavailable MECHELLEAlejandro MD Unavailable Unavailable MECHELLE S MAURY GRESHAM Unavailable Unavailable MECHELLE, S MAURY MD Unavailable Unavailable MECHELLE, S MAURY MD Unavailable Unavailable MECHELLE, S MAURY MD Unavailable Unavailable MECHELLE, S MAURY MD Unavailable Unavailable MECHELLE, S MAURY MD Unavailable Unavailable MECHELLE, S MAURY MD Unavailable Unavailable MECHELLE, S MAURY MD Unavailable Unavailable MECHELLE, S MAURY MD Unavailable Unavailable MECHELLE, S MAURY MD Unavailable Unavailable MECHELLE, S MAURY MD Unavailable Unavailable MECEHLLE, S MAURY MD Unavailable Unavailable MECHELLE, S MAURY MD Unavailable Unavailable MECHELLE, S MAURY MD Unavailable Unavailable MECHELLE, S MAURY MD Unavailable Unavailable MECHELLE, S MAURY MD Unavailable Unavailable MECHELLE, S MAURY MD Unavailable Unavailable MECHELLE, S MAURY MD Unavailable Unavailable MECHELLE, S MAURY MD Unavailable Unavailable MECHELLE, S MAURY MD Unavailable Unavailable MECHELLE, S MAURY MD Unavailable Unavailable MECHELLE, S MAURY MD Unavailable Unavailable MECHELLE, S MAURY MD Unavailable Unavailable MECHELLE, S MAURY MD Unavailable Unavailable MECHELLE, S MAURY MD Unavailable Unavailable MECHELLE, S MAURY MD Unavailable Unavailable Marlon, Wahib MD Unavailable [...] Unavailable JOSELYN, A MAURY PA Unavailable Unavailable Craig Luu PA Unavailable + Craig Luu PA Unavailable + Craig Luu PA Unavailable + Luu, R Alexx PA Unavailable + Luu, R Alexx PA Unavailable Luu, R Alexx PA Unavailable + Luu, R Alexx PA Unavailable + Luu, R Alexx PA Unavailable + Luu, R Alexx PA Unavailable + Luu, R Alexx PA Unavailable Luu, R Alexx PA Unavailable Marlon, Wahib MD Unavailable Unavailable Marlon, [...] Unavailable Unavailable Marlon, Wahib MD Unavailable Unavailable BEATRICE KILGORE MD Unavailable Unavailable BEATRICE KILGORE MD Unavailable Unavailable BEATRICE KILGORE MD Unavailable Unavailable BEATRICE KILGORE MD Unavailable Unavailable BEATRICE KILGORE MD Unavailable Unavailable BEATRICE KILGORE MD Unavailable Unavailable BEATRICE KILGORE MD Unavailable Unavailable BEATRICE KILGORE MD Unavailable Unavailable BEATRICE KILGORE MD Unavailable Unavailable BEATRICE KILGORE MD Unavailable Unavailable BEATRICE KILGORE MD Unavailable Unavailable BEATRICE KILGORE MD Unavailable Unavailable BEATRICE KILGORE MD Unavailable Unavailable BEATRICE KILGORE MD Unavailable Unavailable BEATRICE KILGORE MD Unavailable Unavailable BEATRICE KILGORE MD Unavailable Unavailable BEATRICE KILGORE MD Unavailable Unavailable BEATRICE KILGORE MD Unavailable Unavailable BEATRICE KILGORE MD Unavailable Unavailable BEATRICE KILGORE MD Unavailable Unavailable BEATRICE KILGORE MD Unavailable Unavailable BEATRICE KILGORE MD Unavailable Unavailable BEATRICE KILGORE MD Unavailable Unavailable BEATRICE KILGORE MD Unavailable Unavailable JAITLY, MANASVI MD Unavailable [...] Unavailable Unavailable JAITLY, MANASVI MD Unavailable Unavailable Craig Luu Unavailable Unavailable [...] is protected by Article 27-F of the [facility] Public Health law. If you continue you may have access to information: Regarding HIV / AIDS; Provided by facilities licensed or operated by the [facility] Office of Mental Health; or Provided by the [facility] Office for People With Developmental Disabilities. If such information is present, then the following [facility] mandated warning applies: This information has [...] law may result in a fine or retirement sentence or both. A general authorization for the release of medical or other information is NOT sufficient authorization for further disc losure. Allergies and Adverse Reactions Type Description Substance Reaction Status Data Source(s ) Drug allergy Drug allergy ceftriaxone (From Rocephin) [facility] Drug allergy Drug allergy codeine Unknown Reaction [facility] Drug allergy Drug allergy Sulfa (Sulfonamide Antibiotics) Unknown Byram ction [facility] Drug allergy Drug allergy Penicillins [facility] Encounters Encounter Providers Location Date Indications Data Source(s ) Outpatient Attender: JO-ANN WEBBER MD [id number] 07/18/2021 07:13:06 PM EDT [facility] Emergency Attender: Eduardo DESOUZA ED-ED 01:17:00 PM EDT - 07/05/2021 01:30:00 PM EDT [facility] wound [facility] lwg wound Outpatient CPSCAORT-LABEJN 04/12/2021 02:38:00 PM EDT [facility] Emergency Attender: YESSICA SILVA [facility] ED-ED 06/2021 10:32:00 PM EDT - 04/12/2021 02:09:00 AM EDT CHANGE IN MENTAL STATUS [facility] CHANGE IN MENTAL STATUS Patient discharged. Emergency Attender: YESSICA SILVA [facility] ED-ED 01/02 09:56:00 AM EDT - 2021 10:57:00 AM EDT FALL [facility] FALL Patient discharged. Emergency Attender: YESSICA SILVA [facility] ED-ED 01/2021 12:16:00 PM EDT - 01/05/2021 12:50:00 PM EDT ARM BLEEDING [facility] ARM BLEEDING Patient discharged. Emergency Attender: Alexx JORGENSENttender: Alexx DESOUZA ED-ED 11/25/2020 01:13:00 AM EST - 11/25/2020 04:27:00 AM EST ABD PAIN [facility] ABD PAIN Patient discharged. Outpatient CPSCAORT-LABEJN 11/19/2020 03:05:00 PM EST [facility] Outpatient Attender: CATHERINE JAFFE DO ED-LABPNP 11/04 02:22:00 PM EST - 11/19/2020 02:23:00 PM EST N186 [id number] [facility] N186 N390 [id number] Patient discharged. Outpatient Attender: Amauri Yoo MD CPSCAORT-CPSCADER 0 09:44:00 AM EST - 08/28/2020 09:45:00 AM EST [facility] Patient discharged. Outpatient Attender: Amauri Yoo MD CPSCATREY-CPSCADER 08/08/2020 08:4 5:00 AM EST C44.612 [facility] C44.612 Outpatient Attender: Zachary Mason MD 07/09/2020 10:37:00 AM EDT [facility] Outpatient Attender: Amauri Yoo MD CPSCATREY-CPSCADER 0 08:13:00 AM EDT - 07/08/2020 08:14:00 AM EDT [facility] Patient discharged. Outpatient CPSCAORT-LABEJN 07/02/2020 03:06:00 PM EDT [facility] Outpatient Attender: Amauri Yoo MD CPSCATREY-CPSCADER 0 02:06:00 PM EDT - 07/02/2020 02:07:00 PM EDT [facility] Patient discharged. Outpatient Attender: Zachary Mason MD ED-LABPNP 020 10:54:00 AM EDT - 07/02/2020 10:55:00 AM EDT D472 [facility] D472 Patient discharged. Outpatient Attender: Amauri Yoo MD CPSCATREY-CPSCADER 0 08:31:00 AM EDT - 06/27/2020 08:32:00 AM EDT C44.310 [facility] C44.310 Patient discharged. Outpatient CPSCAORT-LABEJN 06/25/2020 08:28:00 PM EDT [facility] Emergency Attender: MAURY DESOUZA ED-ED 06/25 05:01:00 PM EDT - 06/25/2020 08:33:00 PM EDT FEVER, CHILLS,ABD PAIN [facility] FEVER, CHILLS,ABD PAIN Patient discharged. Outpatient Attender: Zachary Mason MD [id number] 06/18/2020 01:20:00 PM EDT [facility] Admission cancelled. Disregard status an d admitted date. Outpatient Attender: Amauri Yoo MD CPSCAORT-CPSCADER 0 10:45:00 AM EDT - 05/21/2020 10:46:00 AM EDT [facility] Patient discharged. Inpatient Attender: BEATRICE KILGORE MDA ttender: MAURY MIN MDAdmitter: MAURY MIN MD ER-2WEST 01/13/2019 05:56:00 PM EDT - 01/21/2019 01:17:00 PM EDT [facility] Medications Medication Brand Name Start Date Product Form Dose Route Admi nistrative Instructions Pharmacy Instructions Status Indications Reaction Description Data Source(s) 80 mg 07/09/2021 12:00:00 AM EDT tablet 60 TAKE ONE TABLET BY MOUTH TWICE A DAY TAKE ONE TABLET BY MOUTH TWICE A DAY SOLD: 07/19/2021 [facility] 10 mg 07/08/2021 12:00:00 AM EDT tablet 30 TAKE ONE TABLET BY MOUTH EVERY DAY TAKE ONE TABLET BY MOUTH EVERY DAY SOLD: 07/19/2021 [facility] 800 mg 06/11/2021 12:00:00 AM EDT tablet [...] A WEEK (ON ALL NON-DIALYSIS DAYS) SOLD: 08/02/2021 [facility] 8.4 gram 06/02/2021 12:00:00 AM EDT powder [...] MOUTH EVERY DAY SOLD: 06/11/2021 [facility] Sulfamethoxazole 400 MG / Trimethoprim 80 MG Oral Tabl et 400-80 mg SULFAMETHOXAZOLE/TRIMETHOPRIM 05/08/2021 12:00:00 AM EDT tablet 30 TAKE ONE TABLET BY MOUTH EVERY DAY TAKE ONE TABLET BY MOUTH EVERY DAY SOLD: 07/19/2021 [facility] Famotidine 20 MG Oral Tablet FAMOTIDINE 05/07/2021 12:00:00 AM EDT tab let 60 TAKE ONE TABLET BY MOUTH TWICE A DAY TAKE ONE TABLET BY MOUTH TWICE A DAY SOLD: 07/19/2021 [facility] 30 mg 05/07/2021 12:00:00 AM EDT capsule,delayed release (DR/EC) 30 TAKE ONE CAPSULE BY MOUTH EVERY DAY TAKE ONE CAPSULE BY MOUTH EVERY DAY SOLD: 07/19/2021 [facility] 30 mg 05/07/2021 12:00:00 AM [...] EVERY DAY SOLD: 05/12/2021 [facility] 100 mg 04/09/2021 12:00:00 [...] EVERY DAY SOLD: 04/12/2021 [facility] atorvastatin 40 MG Oral Tablet ATORVASTATIN CALCIUM 04/09/2021 1 2:00:00 AM EDT tablet 30 TAKE ONE TABLET BY MOUTH EVERY D AY TAKE ONE TABLET BY MOUTH EVERY DAY SOLD: 07/19/2021 [facility] Nystatin 100 UNT/MG Topical [...] AFFECTED AREA(S) THREE TIMES A DAY SOLD: 08/02/2021 [facility] Nystatin 100 UNT/MG Topical Powder [...] ONE TABLET BY MOUTH EVERY DAY SOLD: 07/19/2021 [facility] carvedilol 6.25 MG Oral Tablet [...] WEEKLY ON SUNDAYS AND TUESDAYS SOLD: 11/28/2020 [facility] 250 mg 10/30/2020 12:00:00 AM EST tablet 6 TAKE ONE TABLET BY MOUTH EVERY 12 HOURS FOR 3 DAYS TAKE ONE TABLET BY MOUTH EVERY 12 HOURS FOR 3 DAYS LONG [facility] Sulfamethoxazole 400 MG / Trimethoprim 80 [...] TABLET BY MOUTH EVERY DAY SOLD: 04/03/2021 [facility] Sulfamethoxazole 400 MG / Trimethoprim 80 [...] ONE TABLET BY MOUTH EVERY DAY SOLD: 07/19/2021 [facility] 75 mg 10/14/2020 12:00:00 AM [...] BY MOUTH TWICE A DAY SOLD: 10/29/2020 [facility] 75 mg 10/14/2020 12:00:00 AM EST [...] BY MOUTH THREE TIMES A DAY SOLD: [facility] carvedilol 6.25 MG Oral Tablet CARVEDILOL 06/26/2020 12:00:00 AM EDT tablet 30 TAKE ONE TABLET BY MOUTH EVERY DAY TAKE ONE TABLET BY MOUTH EVERY DAY SOLD: 09/19/2020 [facility] carvedilol 6.25 MG Oral Tablet CARVEDILOL 06/26/2020 12:00:00 AM EDT tablet 30 TAKE ONE TABLET BY MOUTH EVERY DAY TAKE ONE TABLET BY MOUTH EVERY DAY SOLD: 10/29/2020 [facility] carvedilol 6.25 MG Oral Tablet CARVEDILOL 06/26/2020 12:00:00 AM EDT tablet 30 TAKE ONE TABLET BY MOUTH EVERY DAY TAKE ONE TABLET BY MOUTH EVERY DAY SOLD: 08/06/2020 [facility] carvedilol 6.25 MG Oral Tablet CARVEDILOL 06/26/2020 12:00:00 AM EDT tablet 30 TAKE ONE TABLET BY MOUTH EVERY DAY TAKE ONE TABLET BY MOUTH EVERY DAY SOLD: 07/09/2020 [facility] carvedilol 6.25 MG Oral Tablet CARVEDILOL 06/26/2020 12:00:00 AM EDT tablet 30 TAKE ONE TABLET BY MOUTH EVERY DAY TAKE ONE TABLET BY MOUTH EVERY DAY SOLD: 01/15/2021 [facility] carvedilol 6.25 MG Oral Tablet [...] MOUTH EVERY DAY SOLD: 09/19/2020 [facility] Sulfamethoxazole 400 MG / Trimethoprim [...] A DAY SOLD: 08/06/2020 [facility] atorvastatin 40 MG Oral [...] TABLET BY MOUTH EVERY DAY SOLD: 08/06/2020 [facility] Insurance Providers Payer name Policy type / Coverage type Policy ID Covered republican ID Covered republican's relationship to licea Policy Licea Plan Information MEDICARE [id number] Rianna [id number] MEDICARE [id number] xxxxxxxxxxx [id number] WELLCARE [id number] S [id number] AMER PROG TODAYS OPTIONS G [id number] Self [id number] TODAYS OPTION MEDICARE [id number] Rianna [id number] MEDICAID [id number] Self [id number] TODAYS OPTIONS [id number] SP [id number] MEDICAID [id number] xxxxxxxx [id number] MEDICAID [id number] Rianna [id number] [place] MEDICAID [id number] Rianna 7 [id number] TODAYS OPTIONS [id number] SP [id number] TODAYS OPTIONS [id number] SP [id number] MEDICAID [id number] S [id number] MEDICAID PROF FEES [id number] S [id number] WELLCARE [id number] S [id number] MEDICAID [id number] SP [id number] MEDICARE PART A -O/P [id number] 18 [id number] MEDICAID CO [id number] [address]IC[address] A [facility] [id number] 18 [id number] EDWIN [id number] SP [id number] MEDICAID [id number] S [id number] [place] MEDICARE DIVISION [id number] S [id number] MEDICARE - [place] [id number] S [id number] EDWIN [id number] SP [id number] WELLCARE [id number] SP [id number] TODAYS OPTIONS [id number] SP [id number] [place] CARE MEDICAID [id number] S [id number] MEDICARE [id number] SP [id number] WELLCARE [id number] S [id number] [facility] CARE [id number] S [id number] MEDICAID PROF FEES [id number] S [id number] EDWIN [id number] SP [id number] MEDICARE [id number] SP [id number] [place] [id number] S [id number] TODAYS OPTIONS/PALESTINIAN O [id number] S [id number] MEDICARE [id number] SP [id number] TODAYS OPTIONS [id number] SP [id number] TODAYS OPTIONS/PALESTINIAN O [id number] S [id number] MEDICAID -O/P [id number] TODAYS OPTIONS -O/P [id number] 18 [id number] MEDICAID -I/P [id number] TODAYS OPTIONS -I/P [id number] 18 [id number] TODAYS OPTIONS -PHYSICIAN [id number] 18 [id number] INFO ONLY MEDICARE ADVANTAGE [id number] 18 [id number] MEDICAID -PHYSICIAN [id number] MEDICARE ADVANTAGE PLAN -PHYSICIAN [id number] 1 [id number] PALESTINIAN PROGRESSIVE MC [id number] S [id number] MEDICAID -RECURRING [id number] TODAYS OPTIONS -RECURRING [id number] 18 [id number] MEDICARE -O/P [id number] 18 [id number] MEDICARE -I/P [id number] 18 [id number] MEDICARE -O/P [id number] 18 [id number] MEDICARE -RECURRING [id number] 1 [id number] MEDICARE -RECURRING [id number] 18 [id number] MEDICARE [id number] S [id number] MEDICARE ADVANTAGE PLAN -I/P [id number] 18 [id number] [place] [id number] [place] [id number] [place] [id number] SP [id number] MEDICARE [id number] SP [id number] MEDICARE [id number] S [id number] MEDICAID [id number] S [id number] EMEDNY [id number] SP [id number] [id number] [id number] S [id number] MEDICARE [id number] S [id number] MEDICAID [id number] S [id number] TODAYS OPTIONS AMER PROG [id number] S [id number] MEDICARE C [id number] S [id number] Problems, Conditions, and Diagnoses Code Display Name Description Problem Type Effective Dates Data Source(s) Z95.1 Presence of aortocoronary bypass graft P RESENCE OF AORTOCORONARY BYPASS GRAFT Diagnosis 04/11/2021 10:32:00 PM [facility] Z85.9 Personal history of malignant neoplasm, unspecified PERSONAL HISTORY OF MALIGNANT NEOPLASM, UNSPECIFIED Diagnosis 04/11/2021 10:32:00 PM [facility] Z79.899 Other fci (current) drug therapy O THER HALFWAY (CURRENT) DRUG THERAPY Diagnosis 04/11/2021 10:32:00 PM [facility] Z79.82 [facility] (current) use of aspirin SPEEDER HAND (CU RRENT) USE OF ASPIRIN Diagnosis 04/11/2021 10:32:00 PM [facility] Z79.4 [facility] (current) use of insulin HALFWAY (CU RRENT) USE OF INSULIN Diagnosis 04/11/2021 10:32:00 PM [facility] Z79.02 [facility] [employer] (current) use of antithromboti cs/antiplatelets HALFWAY (CURRENT) USE OF ANTITHROMBOTICS/ANTIPLATELETS Diagnosis 021 10:32:00 PM [facility] I10 Essential (primary) hypertension ESSENTIAL (PRIMARY) H YPERTENSION Diagnosis 04/11/2021 10:32:00 PM [facility] E11.9 Type 2 diabetes mellitus without complic ations TYPE 2 DIABETES MELLITUS WITHOUT COMPLICATIONS Diagnosis 04/11/2021 10:32:00 PM [facility] I25.10 Atherosclerotic heart diseas e of [place] coronary artery without angina pectoris ATHSCL HEART DISEASE OF [place] CORONARY ARTERY W/O ANG PCTRS Diagnosis 04/11/2021 10:32:00 PM [facility] N39.0 Urinary tract infection, site not specif ied URINARY TRACT INFECTION, SITE NOT SPECIFIED Diagnosis 04/11/2021 10:32:00 PM [facility] Z87.440 Personal history of urinary (tract) infe ctions PERSONAL HISTORY OF URINARY (TRACT) INFECTIONS Diagnosis 11/25/2020 01:13:00 AM [facility] I12.9 Hypertensive chronic kidney disease with stage 1 through stage 4 chronic kidney disease, or unspecified chronic kidney disease HYPERTENSIVE CHRONIC KIDNEY DISEASE W STG 1-4/UNSP CHR KDNY Diagnosis 11/25/2020 01:13:00 A M [facility] 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 TYPE 2 DIABETES MELLITUS W DIABETIC CHRONIC KIDNEY DISEASE Diagnosis 01:13:00 AM [facility] 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 Diagnosis 11/25/2020 01:13:00 AM [facility] N18.5 Chronic kidney disease, stage 5 CHRONIC KIDNEY DISEASE , STAGE 5 Diagnosis 11/25/2020 01:13:00 AM [facility] R74.8 Abnormal levels of other serum enzymes A BNORMAL LEVELS OF OTHER SERUM ENZYMES Diagnosis 11/25/2020 01:13:00 AM [facility] R10.11 Right upper quadrant pain RIGHT UPPER QUADRANT PAIN Di agnosis 11/25/2020 01:13:00 AM [facility] N18.6 End stage renal disease END STAGE RENAL DISEASE Diagno sis 11/19/2020 02:22:00 PM [facility] Z48.02 Encounter for removal of sutures ENCOUNTER FOR R EMOVAL OF SUTURES Diagnosis 08/28/2020 09:44:00 AM [facility] C44.612 Basal cell carcinoma of skin of right up per limb, including shoulder BASAL CELL CARCINOMA SKIN/ RIGHT UPPER LIMB, INC SHOULDER Diagnosis 08/08/2020 08:45:00 AM [facility] 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 Diagnosis 07/09/2020 01:50:00 PM [facility] Z79.4 [facility] (current) use of insulin SPEEDER HAND (CU RRENT) USE OF INSULIN Diagnosis 07/09/2020 01:50:00 PM [facility] Z95.1 Presence of aortocoronary bypass graft P RESENCE OF AORTOCORONARY BYPASS GRAFT Diagnosis 07/09/2020 01:50:00 PM [facility]cca I25.2 Old myocardial infarction OLD MYOCARDIAL INFARCTION Di agnosis 07/09/2020 01:50:00 PM [facility] F41.9 Anxiety disorder, unspecified ANXIETY DISORDER, UNSPEC IFIED Diagnosis 07/09/2020 01:50:00 PM [facility] M06.9 Rheumatoid arthritis, unspecified RHEUMATOID ART HRITIS, UNSPECIFIED Diagnosis 07/09/2020 01:50:00 PM [facility] E78.5 Hyperlipidemia, unspecified HYPERLIPIDEMIA, UNSPECIFIE D Diagnosis 07/09/2020 01:50:00 PM [facility] I12.0 Hypertensive chronic kidney disease with stage 5 chronic kidney disease or end stage renal disease HYP CHR KIDNEY DISEASE W STAGE 5 CHR KIDNEY DISEAS Diagnosis 07/09/2020 01:50:00 PM [facility] 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 TYPE 2 DIABETES MELLITUS W DIABETIC CHRONIC KIDNEY Diagnosis 07/09/2020 01:50:00 PM [facility] N18.6 End stage renal disease END STAGE RENAL DISEASE Diagno sis 07/09/2020 01:50:00 PM [facility] D22.61 Melanocytic nevi of right upper limb, in cluding shoulder MELANOCYTIC NEVI OF RIGHT UPPER LIMB, INCLUDING SHOULDER Diagnosis 07/08/2020 08:13:00 AM [facility] D22.62 Melanocytic nevi of left upper limb, inc luding shoulder MELANOCYTIC NEVI OF LEFT UPPER LIMB, INCLUDING SHOULDER Diagnosis 07/08/2020 08:13:00 A M [facility] D47.2 Monoclonal gammopathy MONOCLONAL GAMMOPATHY Diagnosis 07/02/2020 10:54:00 AM [facility] R79.89 Other specified abnormal findings of blo od chemistry OTHER SPECIFIED ABNORMAL FINDINGS OF BLOOD CHEMISTRY Diagnosis 06/18/2020 01:20:00 PM [facility] Surgeries/Procedures Procedure Description Date Indications Data Source(s) EMERGENCY DEPARTMENT VISIT LOW/MODER SEVERITY 07/05/20 12:00:00 AM [facility] CULTURE BACTERIAL QUANTTATIVE COLONY COUNT URINE URINE CULTU RE/COLONY COUNT 04/12/2021 12:00:00 AM [facility] Non-covered item or service NON-COVERED ITEM OR SERVICE 04/03 12:00:00 AM [facility] URNLS DIP STICK/TABLET REAGENT AUTO MICROSCOPY URINALYSIS AU TO W/SCOPE 04/11/2021 12:00:00 AM [facility] BLOOD COUNT COMPLETE AUTO&AUTO DIFRNTL WBC COUNT COMPLETE CB C W/AUTO DIFF WBC 04/11/2021 12:00:00 AM [facility] COMPREHENSIVE METABOLIC PANEL COMPREHEN METABOLIC PANEL 06/2021 12:00:00 AM [facility] EMERGENCY DEPARTMENT VISIT MODERATE SEVERITY EMERGENCY DEPT VISIT [facility]/11[facility]O CONTRAST MATERIAL CT ABD & PELVIS W/ O CONTRAST 11/25/2020 12:00:00 AM [facility] ECG ROUTINE ECG W/LEAST 12 LDS TRCG ONLY W/O I&R ELECTROCARD IOGRAM TRACING 11/25/2020 12:00:00 AM [facility] AMYLASE ASSAY OF AMYLASE 11/25/2020 12:00:00 AM [facility] LIPASE ASSAY OF LIPASE 11/25/2020 12:00:00 AM [facility] Infusion, normal saline solution , 1000 cc 11/25/2020 12:00:00 AM [facility] Injection, ondansetron hydrochloride, per 1 mg 021 12:00:00 AM [facility] THER PROPH/DX NJX IV PUSH SINGLE/1ST SBST/DRUG THER/PROPH/DI AG INJ IV PUSH 11/25/2020 12:00:00 AM [facility] IV INFUSION THERAPY/PROPHYLAXIS /DX 1ST TO 1 HR THER/PROPH/D IAG IV INF INIT 11/25/2020 12:00:00 AM [facility] EMERGENCY DEPT VISIT HIGH SEVERITY&THREAT FUNCJ EMERGENCY DE PT VISIT 11/25/2020 12:00:00 AM [facility] outpatient clinic visit for assessment and ma nagement of a patient Hospital Outpatient Clinic Visit 08/28/2020 12:00:00 AM [facility] REPAIR INTERMEDIATE S/A/T/E 7.6-12.5 CM INTMD RPR S/TR/EXT 7 .6-12.5 08/08/2020 12:00:00 AM [facility] EXCISION MALIGNANT LESION TRUNK/ARM/LEG >4.0 CM EXC TR-EXT M AL+HANS >4 CM 08/08/2020 12:00:00 AM [facility] LEVEL IV SURG PATHOLOGY GROSS&MICROSCOPIC EXAM TISSUE EXAM B Y PATHOLOGIST 08/08/2020 12:00:00 AM [facility] Results ID Date Data Source [id number] 07/18/2021 07:16:37 PM EDT [facility] Name Value Range Interpretation Code Description Data Jessica rce(s) Supporting Document(s) Progress Note [facility] [id number] lbm [file] [id number]== ID Date Data Source [id number] 07/18/2021 07:13:06 PM EDT [facility] Name Value Range Interpretation Code Description Data Jessica rce(s) Supporting Document(s) Progress Note [facility] [id number] lbm [file] [id number]= ID Date Data Source [id number] 04/13/2021 03:28:00 PM [facility] By[facility] [address] [place] [address] Director: Joseph Parmar MD . Mixed anival: Mixed anival, probable contamination. Name Value Range Interpretation Code Description Data Jessica rce(s) Supporting Document(s) ID Date Data Source [id number] 04/13/2021 12:16:00 PM EDT [facility] Procedure Performed By: [facility] [address] [place] [address] Director: Joseph Parmar MD . Name Value Range Interpretation Code Description Data Jessica rce(s) Supporting Document(s) Urine Culture Normal (applies to non-numeric re sults) [facility] ID Date Data Source [id number] 04/12/2021 12:47:00 AM EDT [facility] Name Value Range Interpretation Code Description Data Jessica rce(s) Supporting Document(s) Sodium 141 mmol/L 136-145 Normal (applies to non-numeric resul ts) [facility] Potassium 3.5-5.1 Normal (applies to non-numeric resul ts) [facility] Chloride 101 mmol/L 98-107 Normal (applies to non-numeric resul ts) [facility] Carbon Dioxide CO2 21-32 Normal (applies to non-numer ic results) [facility] Anion Gap 5.0-16.0 Normal (applies to non-numeric resul ts) [facility] BUN 13 mg/dL 7-18 Normal (applies to non-numeric results) [facility] Creatinine,Serum 0.7-1.2 Above high normal [facility] GFR 12 mL/min >60 Below low normal [facility] spital Glucose Level 147 mg/dL 60-99 Above high normal [facility] Reference range is only applicable when patient is fasting Note the following drug interference: Sulfasalazine Sulfapyridine Can see falsely depressed Can see falsely elevated result with up to 17% results with up to 11% decrease in measurement increase in measurement Recommend patients be collected for this test prior to administration of either drug. Calcium 8.5-10.1 Normal (applies to non-numeric resul ts) [facility] Bilirubin,Total 0.1-1.9 Normal (applies to non-numeric results) [facility] SGOT(AST) 16 U/L 15-37 Normal (applies to non-numeric resul ts) [facility] Note the following drug interference: Sulfasalazine Sulfapyridine Can see falsely depressed Can see falsely elevated result with up to 10% results with up to 10% decrease in measurement increase in measurement Recommend patients be collected for this test prior to administration of either drug. SGPT(ALT) 17 U/L 12-78 Normal (applies to non-numeric resul ts) [facility] Note the following drug interference: Sulfasalazine Sulfapyridine Can see falsely depressed Can see falsely elevated result with up to 29% results with up to 10% decrease in measurement increase in measurement Recommend patients be collected for this test prior to administration of either drug. Alkaline Phosphatase 62 U/L 38-126 Normal (applies to non-num yessenia results) [facility] can increase Alkaline Phosp le vels up to 2 times the normal adult value. Normal values for children and adolescents are 2 to 3 times the normal adult value. Total Protein 6.0-8.2 Normal (applies to non-numeric re sults) [facility] Albumin Level 3.4-5.0 Below low normal [facility] ID Date Data Source [id number] 04/12/2021 12:19:00 AM EDT [facility] Name Value Range Interpretation Code Description Data Jessica rce(s) Supporting Document(s) White Blood Count 3.5-10.5 Normal (applies to non-numeri c results) [facility] Red Blood Count 3.90-5.00 Below low normal [facility] Hemoglobin 12.0-15.5 Below low normal [facility] Hematocrit 34.9-44.5 Below low normal [facility] Mean Corpuscular Volume 81.2-95.1 Above high normal [facility] Mean Corpuscular Hgb 25.6-32.2 Above high normal [facility] Mean Corpuscular Hgb Conc 32.0-36.0 Below low normal [facility] Red Cell Distribution Width 11.9-15.5 Normal (appli es to non-numeric results) [facility] Platelet Count 237 x10 3/uL 150-450 Normal (applies to non-numeric results) [facility] Mean Platelet Volume 9.4-12.4 Normal (applies to non-num yessenia results) [facility] Neutrophils% (Auto) 31.0-71.0 Normal (applies to non-nume alix results) [facility] Lymphocytes% (Auto) 20.0-55.0 Normal (applies to non-nume alix results) [facility] Monocytes% (Auto) 4.0-12.0 Above high normal [facility] Eosinophils% (Auto) 1.0-8.0 Normal (applies to non-nume alix results) [facility] Basophils% (Auto) 0.0-2.0 Normal (applies to non-numeri c results) [facility] Immature Granulocytes% (Auto) 0.0-2.0 Normal (brenda lies to non-numeric results) [facility] Neutrophils# (Auto) 1.50-6.20 Normal (applies to non-nume alix results) [facility] Lymphocytes# (Auto) 1.20-4.00 Normal (applies to non-nume alix results) [facility] Monocytes# (Auto) 0.00-0.90 Above high normal [facility] Eosinophils# (Auto) 0.00-0.50 Normal (applies to non-nume alix results) [facility] Basophils# (Auto) 0.00-0.20 Normal (applies to non-numeri c results) [facility] Immature Granulocytes# (Auto) 0.00-7.00 No rmal (applies to non-numeric results) [facility] Slide has been reviewed and findings con firmed by a technologist/roofing technician. ID Date Data Source [id number] 04/12/2021 01:00:00 AM EDT [facility] Collected By: Nurse Initials: lb Time Collected: 2336 Collected By: Nurse Initials: lb Time Collected: 2336 Name Value Range Interpretation Code Description Data Jessica rce(s) Supporting Document(s) Color,Urine Colorl-Dk Y Normal (applies to non-numeric res ults) [facility] Clarity,Urine Clear Normal (applies to non-numeric re sults) [facility] Specific [place],Urine 1.005-1.030 Normal (applies to non- numeric results) [facility] pH,Urine 5.0-8.0 [facility] Protein,Urine Negative [facility]cca Glucose,Urine Negative Normal (applies to non-numeric re sults) [facility] Ketones,Urine Negative Normal (applies to non-numeric re sults) [facility] Blood,[facility]rine Negative [facility] Bilirubin,Urine Negative Normal (applies to non-numeric results) [facility] Urobilinogen,Urine 0.2-1.0 Normal (applies to non-numer ic results) [facility] Leukocyte Esterase,Urine Negative [facility] Nitrite,Urine Negative Normal (applies to non-numeric re sults) [facility] ID Date Data Source [id number] 04/12/2021 01:01:00 AM EDT [facility] Collected By: Nurse Initials: lb Time Collected: 2336 Collected By: Nurse Initials: lb Time Collected: 2336 Name Value Range Interpretation Code Description Data Jessica rce(s) Supporting Document(s) WBC,Urine None Seen [facility] Squamous Cells,Urine None Seen [facility] Bacteria,Urine None Seen [facility] ital ID Date Data Source [id number] [facility] [address] [address] %(RAD)RES..mtdd.print.filter("line") Name: DEION JADE : 1940 Age/Sex: 81F Ordering Provider: DOM Hope Med Rec #: [id number] Reg Status: [facility] Room #: Date of Service: 01/12/21 Report Number: [id number] cc:PCP Unknown Send Report To: [id number] XRP/XR Humerus Lt Reason for exam: s/p [...] Date/Time: 01/12/21 1042 Transcribed Date/Time: 01/13/21 1255 Sample Carrier: JASPREET Name Value Range Interpretation Code Description Data Jessica rce(s) Supporting Document(s) ID Date Data Source [id number] 01/13/2021 06:59:00 AM EDT [facility] Imaging Services Department Imaging Report [address], [place] [address] %(RAD)RES..mtdd.print.filter("line") Name: DEION JADE : 1940 Age/Sex: 81F Ordering Provider: DOM Hope Med Rec #: [id number] Reg Status: DEP ER Room #: Date of Service: 01/12/21 Report Number: [id number] cc:PCP Unknown Send Report To: [id number] XRP/XR Shoulder Lt Reason for exam: s/p [...] rce(s) Supporting Document(s) ID Date Data Source [id number] 11/25/2020 03:21:00 AM [facility] Imaging Services Department Imaging Report [address], [place] [address] %(RAD)RES..mtdd.print.filter("line") Name: DEION JADE : 1940 Age/Sex: 80F Ordering Provider: DEO Will Med Rec #: [id number] Reg Status: REG ER Room #: Date of Service: 11/25/20 Report Number: [id number] cc:Pablito Gillis NP; DEO Will Send Report [...] 11/25/20320 Dictation Date/Time: 11/25/20320 Transcribed Date/Time: 11/25/20320 Sample Carrier: Name Value Range Interpretation Code Description Data [facility] rce(s) Supporting Document(s) ID Date Data Source [id number] 11/25/2020 02:22:00 AM [facility] Name Value Range Interpretation Code Description Data Jessica rce(s) Supporting Document(s) Amylase 272 U/L 25-115 [facility] NUNU YEPEZ read back critical informatio n 11/25/20220 LAB.DYGJO ID Date Data Source [id number] 11/25/2020 02:22:00 AM [facility] Name Value Range Interpretation Code Description Data [facility] rce(s) Supporting Document(s) Sodium 137 mmol/L 136-145 Normal (applies to non-numeric resul ts) [facility] Potassium 3.5-5.1 [facility] NUNU YEPEZ read back critical informatio n 11/25/20219 LAB.DYGJO Chloride 101 mmol/L 98-107 Normal (applies to non-numeric resul ts) [facility] Carbon Dioxide CO2 21-32 Normal (applies to non-numer ic results) [facility] Anion Gap 5.0-16.0 Normal (applies to non-numeric resul ts) [facility] BUN 54 mg/dL 7-18 [facility] NUNU YEPEZ read back critical informatio n 11/25/20220 LAB.DYGJO Creatinine,Serum 0.7-1.2 Above high normal [facility] GFR 6 mL/min >60 Below low normal [facility] Glucose Level 210 mg/dL 60-99 Above high normal [facility] Reference range is only applicable when patient is fasting Note the following drug interference: Sulfasalazine Sulfapyridine Can see falsely depressed Can see falsely elevated result with up to 17% results with up to 11% decrease in measurement increase in measurement Recommend patients be collected for this test prior to administration of either drug. Calcium 8.5-10.1 Normal (applies to non-numeric resul ts) [facility] Bilirubin,Total 0.1-1.9 Normal (applies to non-numeric results) [facility] SGOT(AST) 13 U/L 15-37 Below low normal [facility] Note the following drug interference: Sulfasalazine Sulfapyridine Can see falsely depressed Can see falsely elevated result with up to 10% results with up to 10% decrease in measurement increase in measurement Recommend patients be collected for this test prior to administration of either drug. SGPT(ALT) 19 U/L 12-78 Normal (applies to non-numeric resul ts) [facility] Note the following drug interference: Sulfasalazine Sulfapyridine Can see falsely depressed Can see falsely elevated result with up to 29% results with up to 10% decrease in measurement increase in measurement Recommend patients be collected for this test prior to administration of either drug. Alkaline Phosphatase 112 U/L 38-126 Normal (applies to non-num yessenia results) [facility] can increase Alkaline Phosp le vels up to 2 times the normal adult value. Normal values for children and adolescents are 2 to 3 times the normal adult value. Total Protein 6.0-8.2 Normal (applies to non-numeric re sults) [facility] Albumin Level 3.4-5.0 Normal (applies to non-numeric re sults) [facility] ID Date Data Source [id number] 11/25/2020 02:22:00 AM EST [facility] Name Value Range Interpretation Code Description Data Jessica rce(s) Supporting Document(s) Lipase 336 U/L 73-393 Normal (applies to non-numeric resul ts) [facility] ID Date Data Source [id number] 11/25/2020 01:58:00 AM EST [facility] Name Value Range Interpretation Code Description Data Jessica rce(s) Supporting Document(s) White Blood Count 3.5-10.5 Above high normal [facility] Red Blood Count 3.90-5.00 Below low normal [facility] Hemoglobin 12.0-15.5 Below low normal [facility]spital Hematocrit 34.9-44.5 Normal (applies to non-numeric resul ts) [facility] Mean Corpuscular Volume 81.2-95.1 Above high normal [facility] Mean Corpuscular Hgb 25.6-32.2 Above high normal [facility] Mean Corpuscular Hgb Conc 32.0-36.0 Below low normal [facility] Red Cell Distribution Width 11.9-15.5 Normal (appli es to non-numeric results) [facility] Platelet Count 235 x10 3/uL 150-450 Normal (applies to non-numeric results) [facility] Mean Platelet Volume 9.4-12.4 Normal (applies to non-num yessenia results) [facility] Neutrophils% (Auto) 31.0-71.0 Above high normal [facility] Lymphocytes% (Auto) 20.0-55.0 Below low normal [facility] Monocytes% (Auto) 4.0-12.0 Normal (applies to non-numeri c results) [facility] Eosinophils% (Auto) 1.0-8.0 Normal (applies to non-nume alix results) [facility] Basophils% (Auto) 0.0-2.0 Normal (applies to non-numeri c results) [facility] Immature Granulocytes% (Auto) 0.0-2.0 Normal (brenda lies to non-numeric results) [facility] Neutrophils# (Auto) 1.50-6.20 Above high normal [facility] Lymphocytes# (Auto) 1.20-4.00 Normal (applies to non-nume alix results) [facility] Monocytes# (Auto) 0.00-0.90 Above high normal [facility] Eosinophils# (Auto) 0.00-0.50 Normal (applies to non-nume alix results) [facility] Basophils# (Auto) 0.00-0.20 Normal (applies to non-numeri c results) [facility] Immature Granulocytes# (Auto) 0.00-7.00 No rmal (applies to non-numeric results) [facility] ID Date Data Source [id number] 11/23/2020 07:58:00 AM EST [facility] Procedure Performed By: [facility] [address] [place] [address] Director: Joseph Parmar MD . Name Value Range Interpretation Code Description Data Jessica rce(s) Supporting Document(s) Urine Culture Normal (applies to non-numeric re sults) [facility] ID Date Data Source [id number] 09/09/2020 02:44:00 PM EST [facility] Name Value Range Interpretation Code Description Data Jessica rce(s) Supporting Document(s) SARS coronavirus 2 RNA [Presence] in Res piratory specimen by SALMA with probe detection [facility] This lab was ordered by [facility] a nd reported by [facility]. ID Date Data Source [id number] 09/19/2020 04:05:00 PM EST [facility] Name Value Range Interpretation Code Description Data Jessica rce(s) Supporting Document(s) ID Date Data Source [id number] 07/08/2020 01:35:00 AM EDT [facility] Name Value Range Interpretation Code Description Data Jessica rce(s) Supporting Document(s) Erythropoietin (EPO) result 2.6 - 18.5 Norm al (applies to non-numeric results) [facility] Test Performed by: [address] [address] Director [facility]: Samuel Pierce M.D. Ph.D.; CLIA# [id number] ID Date Data Source [id number] 07/08/2020 01:35:00 AM EDT [facility] Name Value Range Interpretation Code Description Data Jessica rce(s) Supporting Document(s) [place] Free Light Chain [facility] REFERENCE VALUE------ 0.3300-1.94 Lambda Free Light Chain [facility] REFERENCE VALUE------ 0.5700-2.63 [place]/Lambda FLC Ratio [facility] REFERENCE VALUE------ 0.2600-1.65 Test Performed by: [place] [address] Director Of [facility]: Samuel Pierce M.D. Ph.D.; CLIA# [id number] ID Date Data Source [id number] 07/05/2020 12:50:00 PM EDT [facility] Name Value Range Interpretation Code Description Data Jessica rce(s) Supporting Document(s) Erythropoietin (EPO) result 2.6 - 18.5 Norm al (applies to non-numeric results) [facility] Test Performed by: [facility] [place] [address] Director Of [facility]: Samuel Pierce M.D. Ph.D.; CLIA# [id number] ID Date Data Source [id number] 07/05/2020 12:50:00 PM EDT [facility] Name Value Range Interpretation Code Description Data Jessica rce(s) Supporting Document(s) [place] Free Light Chain Very abnormal (applies t o non-numeric units [facility] REFERENCE VALUE------ 0.3300-1.94 Lambda Free Light Chain Very abnormal (applies to non-numeric units [facility] REFERENCE VALUE------ 0.5700-2.63 [place]/Lambda FLC Ratio Very abnormal (applies t o non-numeric units [facility] REFERENCE VALUE------ 0.2600-1.65 Test Performed by: [place] [address] Director Of [facility]: Samuel Pierce M.D. Ph.D.; CLIA# [id number] ID Date Data Source [id number] 07/02/2020 09:20:00 PM EDT [facility] Name Value Range Interpretation Code Description Data Jessica rce(s) Supporting Document(s) FESAT Iron result 79 ug/dL 37-170 Normal (applies to non-numeri c results) [facility] Test Performed By: [facility] [address] [place] [address] Director: Radha Parmar MD FESAT TIBC result 245 ug/dL 265-497 [facility] Test Performed By: [facility] [address] [place] [address] Director: Radha Parmar MD FESAT %Iron Saturation result 12.0-55.0 No rmal (applies to non-numeric results) [facility] Test Performed By: [facility] [address] [place] [address] Director: Radha Parmar MD ID Date Data Source [id number] 07/02/2020 09:20:00 PM EDT [facility] Name Value Range Interpretation Code Description Data Jessica rce(s) Supporting Document(s) LDH result 238 U/L 84-246 Normal (applies to non-numeric resul ts) [facility] Test Performed By: [facility] [address] [place] [address] Director: Radha Parmar MD ID Date Data Source [id number] 07/02/2020 06:34:00 PM EDT [facility] Name Value Range Interpretation Code Description Data Jessica rce(s) Supporting Document(s) Iron FE Level 79 ug/dL 37-170 Normal (applies to non-numeric re sults) [facility] Test Performed By: [facility] [address] [place] [address] Director: Radha Parmar MD Total Iron Binding Capacity 245 ug/dL 265-497 Below low normal [facility] Test Performed By: [facility] [address] [place] [address] Director: Radha Parmar MD %Iron Saturation 12.0-55.0 Normal (applies to non-numeric results) [facility] Test Performed By: [facility] [address] [place] [address] Director: Radha Parmar MD ID Date Data Source [id number] 07/02/2020 06:34:00 PM EDT [facility] Value Range Interpretation Code Description Data Jessica rce(s) Supporting Document(s) LDH 238 U/L 84-246 Normal (applies to non-numeric resul ts) [facility] Test Performed By: [facility] [address] [place] [address] Director: Radha Parmar MD ID Date Data Source [id number] 07/02/2020 12:43:00 PM EDT [facility] Name Value Range Interpretation Code Description Data Jessica rce(s) Supporting Document(s) Reticulocyte Count 0.50-1.81 Normal (applies to non-numer ic results) [facility] Slide has been reviewed and findings con firmed by a technologist/roofing technician. ID Date Data Source [id number] 07/02/2020 12:43:00 PM T [facility] Name Value Range Interpretation Code Description Data Jessica rce(s) Supporting Document(s) White Blood Count 3.5-10.5 Normal (applies to non-numeri c results) [facility] Red Blood Count 3.90-5.00 Below low normal [facility] Hemoglobin 12.0-15.5 Below low normal [facility] ospital Hematocrit 34.9-44.5 Normal (applies to non-numeric resul ts) [facility] Mean Corpuscular Volume 81.2-95.1 Above high normal [facility] Mean Corpuscular Hgb 25.6-32.2 Above high normal [facility] Mean Corpuscular Hgb Conc 32.0-36.0 Normal (applies to no n-numeric results) [facility] Red Cell Distribution Width 11.9-15.5 Normal (appli es to non-numeric results) [facility] Platelet Count 255 x10 3/uL 150-450 Normal (applies to non-numeric results) [facility] Mean Platelet Volume 9.4-12.4 Normal (applies to non-num yessenia results) [facility] Neutrophils% (Auto) 31.0-71.0 Normal (applies to non-nume alix results) [facility] Lymphocytes% (Auto) 20.0-55.0 Normal (applies to non-nume alix results) [facility] Monocytes% (Auto) 4.0-12.0 Above high normal [facility] Eosinophils% (Auto) 1.0-8.0 Normal (applies to non-nume alix results) [facility] Basophils% (Auto) 0.0-2.0 Normal (applies to non-numeri c results) [facility] Immature Granulocytes% (Auto) 0.0-2.0 Normal (brenda lies to non-numeric results) [facility] Neutrophils# (Auto) 1.50-6.20 Normal (applies to non-nume alix results) [facility] Lymphocytes# (Auto) 1.20-4.00 Normal (applies to non-nume alix results) [facility] Monocytes# (Auto) 0.00-0.90 Above high normal [facility] Eosinophils# (Auto) 0.00-0.50 Normal (applies to non-nume alix results) [facility] Basophils# (Auto) 0.00-0.20 Normal (applies to non-numeri c results) [facility] Immature Granulocytes# (Auto) 0.00-7.00 No rmal (applies to non-numeric results) [facility] ID Date Data Source [id number] 07/02/2020 03:37:00 PM EDT [facility] Sp nayt Parmar MD, Director PAGE [address] [place] [address] [place] [address] Name: DEION JADE [facility] Rec #: [id number]: 1940 Age/Sex: 80/F Attending Provider: Amauri Yoo MD Date of Service: 06/27/20 Location: [facility] CC: Amauri Yoo MD Specimen: [id number] Received: [id number] Status: MARKOS Madrigal Num: [id number] Collected: Sp Type: SURGICAL Subm Doc: Amauri Yoo [...] has a recent history (ProPath accession ID: [id number] Reference ID:[id number]) of skin, right jainism area: basal cell carcinoma, nodular and sclerosing types.The patient now presents for wide excision (our [id number]). In this current wide excision,centrally, there are changes consistent with recent surgery including fibrosis andinflammation. Residual basal cell carcinoma is not identified. The lateral and deepresection margins are negative for malignancy.ss/sl FINAL DIAGNOSIS:Right jainism skin lesion excision: Excised surgical site with surgical site changes; no residual evidence of basal cellcarcinoma; with lateral and deep resection margins negative for malignancy.tali/logan(1) Signed (signature on file) Joseph Parmar MD 07/02/20 1533 [facility] Radha Parmar MD, Director PAGE [address] [place] [address] [place] [address] ------ ------ Name: DEION JADE [facility] Rec #: [id number]: 1940 Age/Sex: 80/F Attending Provider: Amauri Yoo MD Date of Service: 06/27/20 Location: [facility] CC: Amauri Yoo MD CONTINUED ON NEXT PAGE Name Value Range Interpretation Code Description Data Jessica rce(s) Supporting Document(s) ID Date Data Source [id number] 06/28/2020 08:05:00 AM EDT [facility] spital Procedure Performed By: [facility] Laboratory [address] [place] [address] Director: Joseph Parmar MD Mixed anival: Mixed anival, probable contamination. Name Value Range Interpretation Code Description Data [facility] rce(s) Supporting Document(s) ID Date Data Source [id number] 06/28/2020 07:44:00 AM EDT [facility] Procedure Performed By: [facility] Laboratory [address] [place] [address] Director: Joseph Parmar MD Name Value Range Interpretation Code Description Data [facility] rce(s) Supporting Document(s) Urine Culture Normal (applies to non-numeric re sults) [facility] ID Date Data Source [id number] 06/25/2020 07:53:00 PM EDT [facility] Collected By: Nurse Initials: ELENITA Time Collected: 1902 Collected By: Nurse Initials: ZB Time Collected: 1902 Name Value Range Interpretation Code Description Data [facility] rce(s) Supporting Document(s) Color,Urine Colorl-Dk Y Normal (applies to non-numeric res ults) [facility] Clarity,Urine Clear Normal (applies to non-numeric re sults) [facility] Specific [place],Urine 1.005-1.030 Normal (applies to non- numeric results) [facility] pH,Urine 5.0-8.0 Normal (applies to non-numeric resul ts) [facility] Protein,[facility] Negative [facility] Glucose,Urine Negative Normal (applies to non-numeric re sults) [facility] Ketones,Urine Negative Normal (applies to non-numeric re sults) [facility] Blood,Urine Negative [facility] l Bilirubin,Urine Negative Normal (applies to non-numeric results) [facility] Urobilinogen,Urine 0.2-1.0 Normal (applies to non-numer ic results) [facility] Leukocyte Esterase,Urine Negative [facility] Nitrite,Urine Negative Normal (applies to non-numeric re sults) [facility] ID Date Data Source [id number] [facility] By: Nurse Initials: ZB Time Collected: 1902 Collected By: Nurse Initials: ZB Time Collected: 1902 Name Value Range Interpretation Code Description Data [facility] rce(s) Supporting Document(s) RBC,Urine None Seen [facility] WBC,Urine None Seen [facility] Casts,Urine None Seen Normal (applies to non-numeric resu lts) [facility] Epithelial Cells,Urine None - Few Normal (applies to non-n umeric results) [facility] Squamous Cells,Urine None Seen [facility] Bacteria,Urine None Seen [facility] ital ID Date Data Source [id number] [facility]/25/2020 07:05[facility] Name Value Range Interpretation Code Description Data Jessica rce(s) Supporting Document(s) White Blood Count 3.5-10.5 Normal (applies to non-numeri c results) [facility] Red Blood Count 3.90-5.00 Below low normal [facility] Hemoglobin 12.0-15.5 Below low normal [facility] ospital Hematocrit 34.9-44.5 Normal (applies to non-numeric resul ts) [facility] Mean Corpuscular Volume 81.2-95.1 Above high normal [facility] Mean Corpuscular Hgb 25.6-32.2 Above high normal [facility] Mean Corpuscular Hgb Conc 32.0-36.0 Below low normal [facility] Red Cell Distribution Width 11.9-15.5 Normal (appli es to non-numeric results) [facility] Platelet Count 266 x10 3/uL 150-450 Normal (applies to non-numeric results) [facility] Mean Platelet Volume 9.4-12.4 Normal (applies to non-num yessenia results) [facility] Total Cells Counted (Manual) 100 Normal (applies to non-numeric results) [facility] Neutrophils% (Manual) 57 % 31-71 Normal (applies to non-nu meric results) [facility] Lymphocytes% (Manual) 30 % 20-55 Normal (applies to non-nu meric results) [facility] Monocytes% (Manual) 11 % 4-12 Normal (applies to non-nume alix results) [facility] Eosinophils% (Manual) 2 % 1-8 Normal (applies to non-nu meric results) [facility] Platelet Estimate (Manual) Agreement Normal (applie s to non-numeric results) [facility] Slide Reviewed By Normal (applies to non-numeri c results) [facility] Slide has been reviewed and findings con firmed by a technologist/roofing technician. ID Date Data Source [id number] 06/25/2020 06:39:00 PM EDT [facility] Name Value Range Interpretation Code Description Data Jessica rce(s) Supporting Document(s) Lipase 276 U/L 73-393 Normal (applies to non-numeric resul ts) [facility] ID Date Data Source [id number] 06/25/2020 06:39:00 PM EDT [facility] Name Value Range Interpretation Code Description Data Jessica rce(s) Supporting Document(s) Amylase 111 U/L 25-115 Normal (applies to non-numeric resul ts) [facility] ID Date Data Source [id number] 06/25/2020 06:39:00 PM EDT [facility] Name Value Range Interpretation Code Description Data Jessica rce(s) Supporting Document(s) Sodium 137 mmol/L 136-145 Normal (applies to non-numeric resul ts) [facility] Potassium 3.5-5.1 Normal (applies to non-numeric resul ts) [facility] Chloride 98 mmol/L 98-107 Normal (applies to non-numeric resul ts) [facility] Carbon Dioxide CO2 21-32 Normal (applies to non-numer ic results) [facility] Anion Gap 5.0-16.0 Normal (applies to non-numeric resul ts) [facility] BUN 28 mg/dL 7-18 Above high normal [facility] ospital Creatinine,Serum 0.7-1.2 Above high normal [facility] GFR 9 mL/min >60 Below low normal [facility] spital Glucose Level 144 mg/dL 60-99 Above high normal [facility] Reference range is only applicable when patient is fasting Note the following drug interference: Sulfasalazine Sulfapyridine Can see falsely depressed Can see falsely elevated result with up to 17% results with up to 11% decrease in measurement increase in measurement Recommend patients be collected for this test prior to administration of either drug. Calcium 8.5-10.1 Below low normal [facility] spital Bilirubin,Total 0.1-1.9 Normal (applies to non-numeric results) [facility] SGOT(AST) 22 U/L 15-37 Normal (applies to non-numeric resul ts) [facility] Note the following drug interference: Sulfasalazine Sulfapyridine Can see falsely depressed Can see falsely elevated result with up to 10% results with up to 10% decrease in measurement increase in measurement Recommend patients be collected for this test prior to administration of either drug. SGPT(ALT) 19 U/L 12-78 Normal (applies to non-numeric resul ts) [facility] Note the following drug interference: Sulfasalazine Sulfapyridine Can see falsely depressed Can see falsely elevated result with up to 29% results with up to 10% decrease in measurement increase in measurement Recommend patients be collected for this test prior to administration of either drug. Alkaline Phosphatase 112 U/L 38-126 Normal (applies to non-num yessenia results) [facility] can increase Alkaline Phosp le vels up to 2 times the normal adult value. Normal values for children and adolescents are 2 to 3 times the normal adult value. Total Protein 6.0-8.2 Normal (applies to non-numeric re sults) [facility] Albumin Level 3.4-5.0 Below low normal [facility] ID Date Data Source [id number] 06/25/2020 05:54:00 PM EDT [facility] Reference range: Negative for occult blood.06/25Negative Name Value Range Interpretation Code Description Data Jessica rce(s) Supporting Document(s) ID Date Data Source [id number] 06/26/2020 11:48:00 AM [facility] Imaging Services Department Imaging Report [address], [place] [address] %(RAD)RES..mtdd.print.filter("line") Name: DEION JADE : 1940 Age/Sex: 80F Ordering Provider: DEO Cruz Med Rec #: [id number] Reg Status: DEP ER Room #: Date of Service: 06/25/20 Report Number: [id number] cc:Pablito Gillis NP Send Report To: [id number] CT/CT Abdomen & Pelvis No Contras Reason [...] REPORT SIGNATURE ON FILE Reported By: Alhaji Head DO <Electronically signed by Alhaji Head DO> 06/27/20 1154 Dictation Date/Time: 06/25/20 1817 Transcribed Date/Time: 06/26/20 1148 Sample Carrier: NGUYỄN Name Value Range Interpretation Code Description Data Jessica rce(s) Supporting Document(s) ID Date Data Source [id number] 06/23/2020 11:09:00 PM EDT [facility] EDUARDO [place] [address] [address] FOLLOW UP NOTENAME: DEION JADE APHYSICIAN: RYANN NORRISATE OF SERVICE: 06/18/20DATE OF : [birth year]ACCOUNT #: [id number]: DEION JADEDate: Jun 18, 2020DOB: 1940Physician: Dr. [...] 46 Units (of 100 Units/mL) Subcutaneous on ,,, (StartDate - unknown)Lantus SoloStar 20 Units Subcutaneous [...] depression andeuphoria.Vital Signs:Performed on Jun 18, 2020 13:64Kvlkkugcyzl57.6 JMqnxk95 /hqjBcfwuhzaham74 /wfsWJ763/74Pulse Oximetry (O2 Sat)96 %Fall RiskModerate RiskPerformance Status:2 [...] immunoglobulin level. [facility] any evidence of lytic lesion. At this timemyeloma or myeloma (smoldering/light chain) is not suspected.Plan:Based on the laboratory findings we have, I do not think the patient hasevidence of MGUS Or evidence of myeloma. [place] lambda ratio is explained byend-stage renal disease, [...] Information Vital Signs ID Date Data Source [id number] 07/09/2021 12:34:00 PM EDT [facility] spital Name Value Range Interpretation Code Description Data Source(s) Weight Measurement Method 8 8 [facility] Weight (Calculated Kilograms) 81.65 81.65 [facility] Weight 2240 2240 [facility] pital Temperature Source 7 7 [facility] Temperature 97.9 97.9 [facility] spital Respiratory Effort 1 1 [facility] Respiratory Rate 16 16 [facility] Pulse Assessment Method [address] [facility] 61 [facility] (Calculated Centimeters) 167.64 167. 64 [facility] Height 66 66 [facility] Blood Pressure 168/58 168/58 [facility] Body Mass Index (BMI) 29.0 29.0 [facility] Weight (Calculated Kilograms) 81.65 81.65 [facility] Height (Calculated Centimeters) 167.64 167. 64 [facility] Body Mass Index (BMI) 29.0 29.0 [facility] Weight (Calculated Kilograms) 81.65 81.65 [facility] Height (Calculated Centimeters) 167.64 167. 64 [facility] Body Mass Index (BMI) 29.0 29.0 [facility] ID Date Data Source [id number] 04/13/2021 12:16:00 PM EDT [facility] Name Value Range Interpretation Code Description Data Source(s) Weight (Calculated Kilograms) 74.30 74.30 [facility] Height (Calculated Centimeters) 170.18 170. 18 [facility] Body Mass Index (BMI) 25.6 25.6 [facility] ID Date Data Source [id number] 08/01/2021 05:45:00 PM EDT [facility] spital Name Value Range Interpretation Code Description Data Source(s) Weight Measurement Method 5 5 [facility] Weight (Calculated Kilograms) 81.65 81.65 [facility] Weight 1999 1999 [facility] pital Temperature Source 7 7 [facility] Temperature 98 98 [facility] spital Respiratory Effort 1 1 [facility] Respiratory Rate 20 20 [facility] Pulse Assessment Method [address] [facility] Weight Measurement Method 5 5 [facility] Weight (Calculated Kilograms) 81.65 81.65 [facility] Weight 1999 1999 [facility] pital Respiratory Effort 1 1 [facility] Respiratory Rate 20 20 [facility] Pulse Rate 80 80 [facility] pital Height (Calculated Centimeters) 167.64 167. 64 [facility] Blood Pressure 123/48 123/48 [facility] Body Mass Index (BMI) 29.0 29.0 [facility] Weight Measurement Method 5 5 [facility] Weight (Calculated Kilograms) 81.65 81.65 [facility] Weight 1999 1999 [facility] pital Respiratory Effort 1 1 [facility] Respiratory Rate 20 20 [facility] Pulse Rate 86 86 [facility] pital Height (Calculated Centimeters) 167.64 167. 64 [facility] Blood Pressure 200/85 200/85 [facility] Body Mass Index (BMI) 29.0 29.0 [facility] Weight Measurement Method 5 5 [facility] Weight (Calculated Kilograms) 81.65 81.65 [facility] Weight 1999 1999 [facility] pital Respiratory Effort 1 1 [facility] Respiratory Rate 20 20 [facility] Pulse Rate 86 86 [facility] pital Height (Calculated Centimeters) 167.64 167. 64 [facility] Blood Pressure 200/85 200/85 [facility] Body Mass Index (BMI) 29.0 29.0 [facility] Weight (Calculated Kilograms) 81.65 81.65 [facility] Height (Calculated Centimeters) 167.64 167. 64 [facility] Body Mass Index (BMI) 29.0 29.0 [facility] Weight (Calculated Kilograms) 81.65 81.65 [facility] Height (Calculated Centimeters) 167.64 167. 64 [facility] Body Mass Index (BMI) 29.0 29.0 [facility] ID Date Data Source [id number] 2021 10:58:00 AM EDT [facility] spital Name Value Range Interpretation Code Description Data Source(s) Weight Measurement Method 8 8 [facility] Weight (Calculated Kilograms) 81.65 81.65 [facility] Weight 2400 2400 [facility] pital Temperature Source 7 7 [facility] Temperature 96.7 96.7 [facility] spital Respiratory Effort 1 1 [facility] Respiratory Rate 18 18 [facility] Pulse Assessment Method [address] [facility] Pulse Rate 74 74 [facility] pital Height (Calculated Centimeters) 167.64 167. 64 [facility] 66 [facility] 174/74 174/74 [facility] Body Mass Index (BMI) 29.0 29.0 [facility] Weight Measurement Method 8 8 [facility] Weight (Calculated Kilograms) 81.65 81.65 [facility] Weight 2400 2400 [facility] pital Temperature Source 7 7 [facility] Temperature 96.7 96.7 [facility] spital Respiratory Effort 1 1 [facility] Respiratory Rate 18 18 [facility] Pulse Assessment Method [address] [facility] Pulse Rate 77 77 [facility] pital Height (Calculated Centimeters) 167.64 167. 64 [facility] Height 66 66 [facility] 184/75 184/75 [facility] Body Mass Index (BMI) 29.0 29.0 [facility] Weight Measurement Method 8 8 [facility] Weight (Calculated Kilograms) 81.65 81.65 [facility] Weight 2400 2400 [facility] pital Temperature Source 7 7 [facility] Temperature 96.7 96.7 [facility] spital Respiratory Effort 1 1 [facility] Respiratory Rate 18 18 [facility] Pulse Assessment Method [address] [facility] Pulse Rate 77 77 [facility] pital Height (Calculated Centimeters) 167.64 167. 64 [facility] Height 66 66 [facility] Pressure 184/75 184/75 [facility] Body Mass Index (BMI) 29.0 29.0 [facility] Weight Measurement Method 8 8 [facility] Weight (Calculated Kilograms) 81.65 81.65 [facility] Weight 2400 2400 [facility] pital Temperature Source 7 7 [facility] Temperature 96.7 96.7 [facility] spital Respiratory Effort 1 1 [facility] Respiratory Rate 18 18 [facility] Pulse Assessment Method [address] [facility] Pulse Rate 77 77 [facility] pital Height (Calculated Centimeters) 167.64 167. 64 [facility] Height 66 66 [facility] pital Blood Pressure 184/75 184/75 [facility] Body Mass Index (BMI) 29.0 29.0 [facility] Weight (Calculated Kilograms) 81.65 81.65 [facility] Height (Calculated Centimeters) 167.64 167. 64 [facility] Body Mass Index (BMI) 29.0 29.0 [facility] ID Date Data Source [id number] 01/05/2021 12:52:00 PM EDT [facility] spital Name Value Range Interpretation Code Description Data Source(s) Weight (Calculated Kilograms) 81.65 81.65 [facility] Temperature Source 3 3 [facility] Temperature 98.0 98.0 [facility] spital Respiratory Effort 1 1 [facility] Respiratory Rate 18 18 [facility] Pulse Assessment Method [address] [facility] Pulse Rate 65 65 [facility] pital Height (Calculated Centimeters) 167.64 167. 64 [facility] Blood Pressure 179/70 179/70 [facility] Body Mass Index (BMI) 29.0 29.0 [facility] Weight (Calculated Kilograms) 81.65 81.65 [facility] Temperature Source 3 3 [facility] Temperature 98.0 98.0 [facility] spital Respiratory Effort 1 1 [facility] Respiratory Rate 18 18 [facility] Pulse Assessment Method [address] [facility] Pulse Rate 65 65 [facility] pital Height (Calculated Centimeters) 167.64 167. 64 [facility] Blood Pressure 179/70 179/70 [facility] Body Mass Index (BMI) 29.0 29.0 [facility] Weight (Calculated Kilograms) 81.65 81.65 [facility] Height (Calculated Centimeters) 167.64 167. 64 [facility] Body Mass Index (BMI) 29.0 29.0 [facility] Weight (Calculated Kilograms) 81.65 81.65 [facility] Height (Calculated Centimeters) 167.64 167. 64 [facility] Body Mass Index (BMI) 29.0 29.0 [facility] Hospital ID Date Data Source [id number] 11/28/2020 09:17:00 AM EST [facility] spital Name Value Range Interpretation Code Description Data Source(s) Weight (Calculated Kilograms) 81.65 81.65 [facility] Weight 2496 2496 [facility] pital Temperature Source 7 7 [facility] Temperature 98.8 98.8 [facility] Respiratory Effort 1 1 [facility] Respiratory Rate 16 16 [facility] Pulse Assessment Method [address] [facility] Weight (Calculated Kilograms) 81.65 81.65 [facility] Weight 2496 2496 [facility] pital Temperature Source 7 7 [facility] Temperature 99.9 99.9 [facility] spital Respiratory Effort 1 1 [facility] Respiratory Rate 18 18 [facility] Pulse Rate 68 68 [facility] pital Height (Calculated Centimeters) 167.64 167. 64 [facility] Blood Pressure 134/63 134/63 [facility] Body Mass Index (BMI) 29.0 29.0 [facility] Weight (Calculated Kilograms) 81.65 81.65 [facility] Height (Calculated Centimeters) 167.64 167. 64 [facility] Body Mass Index (BMI) 29.0 29.0 [facility] Weight (Calculated Kilograms) 81.65 81.65 [facility] Height (Calculated Centimeters) 167.64 167. 64 [facility] Body Mass Index (BMI) 29.0 29.0 [facility] ID Date Data Source [id number] 11/23/2020 07:58:00 AM [facility] Name Value Range Interpretation Code Description Data Source(s) Weight (Calculated Kilograms) 74.30 74.30 [facility] Height (Calculated Centimeters) 170.18 170. 18 [facility] Body Mass Index (BMI) 25.6 25.6 [facility] ID Date Data Source [id number] 11/23/2020 08:10:00 AM [facility] Name Value Range Interpretation Code Description Data Source(s) Weight (Calculated Kilograms) 81.65 81.65 [facility] Height (Calculated Centimeters) 167.64 167. 64 [facility] Body Mass Index (BMI) 29.0 29.0 [facility] Weight (Calculated Kilograms) 81.65 81.65 [facility] Height (Calculated Centimeters) 167.64 167. 64 [facility] Body Mass Index (BMI) 29.0 29.0 [facility] ID Date Data Source [id number] 11/14/2020 07:40:00 AM [facility] Hospital Name Value Range Interpretation Code Description Data Source(s) Weight (Calculated Kilograms) 74.30 74.30 [facility] Height (Calculated Centimeters) 170.18 170. 18 [facility] Body Mass Index (BMI) 25.6 25.6 [facility] ID Date Data Source [id number] 11/17/2020 07:33:00 PM [facility] Name Value Range Interpretation Code Description Data Source(s) Weight (Calculated Kilograms) 74.30 74.30 [facility] Height (Calculated Centimeters) 170.18 170. 18 [facility] Body Mass Index (BMI) 25.6 25.6 [facility] Hospital ID Date Data Source [id number] 09/04/2020 08:45:00 AM [facility] Hospital Name Value Range Interpretation Code Description Data Source(s) Weight (Calculated Kilograms) 74.30 74.30 [facility] Height (Calculated Centimeters) 170.18 170. 18 [facility] Body Mass Index (BMI) 25.6 25.6 [facility] Hospital ID Date Data Source [id number] 07/08/2020 01:35:00 AM EDT [facility] Name Value Range Interpretation Code Description Data Source(s) Weight (Calculated Kilograms) 74.30 74.30 [facility] Height (Calculated Centimeters) 170.18 170. 18 [facility] Body Mass Index (BMI) 25.6 25.6 [facility] ID Date Data Source [id number] 08/16/2020 07:31:00 AM [facility] Hospital Name Value Range Interpretation Code Description Data Source(s) Weight (Calculated Kilograms) 74.30 74.30 [facility] Height (Calculated Centimeters) 170.18 170. 18 [facility] Body Mass Index (BMI) 25.6 25.6 [facility] ID Date Data Source [id number] 07/05/2020 12:50:00 PM EDT [facility] Name Value Range Interpretation Code Description Data Source(s) Weight (Calculated Kilograms) 81.65 81.65 [facility] Height (Calculated Centimeters) 167.64 167. 64 [facility] Body Mass Index (BMI) 29.0 29.0 [facility] ID Date Data Source [id number] 07/02/2020 03:37:00 PM EDT [facility] Name Value Range Interpretation Code Description Data Source(s) Weight (Calculated Kilograms) 74.30 74.30 [facility] Height (Calculated Centimeters) 170.18 170. 18 [facility] Body Mass Index (BMI) 25.6 25.6 [facility] Hospital ID Date Data Source [id number] 06/28/2020 07:44:00 AM EDT [facility] Name Value Range Interpretation Code Description Data Source(s) Weight (Calculated Kilograms) 74.30 74.30 [facility] Height (Calculated Centimeters) 170.18 170. 18 [facility] Body Mass Index (BMI) 25.6 25.6 [facility] ID Date Data Source [id number] 06/28/2020 08:05:00 AM EDT [facility] spital Name Value Range Interpretation Code Description Data Source(s) Weight Measurement Method 8 8 [facility] Weight (Calculated Kilograms) 81.65 81.65 [facility] Weight 2400 2400 [facility] pital Temperature Source 7 7 [facility] Temperature 97.4 97.4 [facility] spital Respiratory Effort 1 1 [facility] Respiratory Rate 18 18 [facility] Pulse Assessment Method [address] [facility] Pulse Rate 76 76 [facility] pital Height (Calculated Centimeters) 167.64 167. 64 [facility] 174/82 174/82 [facility] Body Mass Index (BMI) 29.0 29.0 [facility] Weight Measurement Method 8 8 [facility] Weight (Calculated Kilograms) 81.65 81.65 [facility] Weight 2400 2400 [facility] pital Temperature Source 7 7 [facility] Temperature 97.4 97.4 [facility] spital Respiratory Effort 1 1 [facility] Respiratory Rate 18 18 [facility] Pulse Assessment Method [address] [facility] Pulse Rate 71 71 [facility] pital Height (Calculated Centimeters) 167.64 167. 64 [facility] 66 [facility] 173/65 173/65 [facility] Body Mass Index (BMI) 29.0 29.0 [facility] Weight (Calculated Kilograms) 81.65 81.65 [facility] Height (Calculated Centimeters) 167.64 167. 64 [facility] Body Mass Index (BMI) 29.0 29.0 [facility] ID Date Data Source [id number] 07/23/2020 07:36:00 AM EDT [facility] Name Value Range Interpretation Code Description Data Source(s) Weight (Calculated Kilograms) 74.30 74.30 [facility] Height (Calculated Centimeters) 170.18 170. 18 [facility] Body Mass Index (BMI) 25.6 25.6 [facility] ID Date Data Source [id number] 07/22/2020 12:07:00 PM EDT [facility] Name Value Range Interpretation Code Description Data Source(s) WEIGHT 67.8 kilos 67.8 kilos [facility] HEIGHT 172.72 centimeters 172.72 centimeter [facility] WE[facility].[address] [facility] [facility].72 [facility] 172.72 centimeter [facility]
[2021-08-13 19:01] VITALS: BP 147/80
[2021-08-13] MEDS ORDERED: **NOTE PATIENT COMMENT** MISC XX SCH (21:00)
== END 2021-08-13 19:21 | disposition home or self-care (01) ==
LOC: M ED 16:37
DX: S29.011A Strain of muscle and tendon of front wall of thorax, initial encounter (principal); X58.XXXA Exposure to other specified factors, initial encounter; Y92.9 Unspecified place or not applicable; Y93.9 Activity, unspecified; Y99.9 Unspecified external cause status; I50.9 Heart failure, unspecified; I25.2 Old myocardial infarction; E11.9 Type 2 diabetes mellitus without complications; I10 Essential (primary) hypertension; E78.5 Hyperlipidemia, unspecified; N18.6 End stage renal disease; Z99.2 Dependence on renal dialysis; Z95.1 Presence of aortocoronary bypass graft; Z79.82 Long term (current) use of aspirin; Z79.4 Long term (current) use of insulin; Z79.899 Other long term (current) drug therapy; Z88.0 Allergy status to penicillin; Z88.5 Allergy status to narcotic agent; Z88.8 Allergy status to other drugs, medicaments and biological substances

== ENCOUNTER 2022-02-23 16:25 | Inpatient (IN) | payer MEDICARE, MEDICAID ==
[~2022-02-23] VITALS: Ht 167.6 cm; Wt 78.5 kg
[~2022-02-23 16:25] MED LIST changes: -D31000TA2 PO; -LEVO250T12 PO; +LEVO250T3 PO; +LIDO5DIS41 TOP; +POTA-149 PO; -POTA10TA16 PO; +VITA100093 PO
[2022-02-23 18:42] VITALS: BP 105/52
[2022-02-23 19:42] LABS: BASO % 0.1 % (0.0-1.0); HEMATOCRIT 32.3 % (36.0-47.0); HEMOGLOBIN 10.1 g/dl (12.0-15.5); LYMPH # 0.9 10^3/uL (1.5-5.0); LYMPH % 12.3 % (24.0-44.0); MEAN CORPUSCULAR HEMOGLOBIN 34.5 pg (27.0-33.0); MEAN CORPUSCULAR HGB CONC 31.3 g/dl (32.0-36.5); MEAN CORPUSCULAR VOLUME 110.2 fl (80.0-96.0); MONO # 0.7 10^3/uL (0.0-0.8); MONO % 9.4 % (2.0-8.0); NEUTROPHILS # 5.8 10^3/uL (1.5-8.5); NEUTROPHILS % 77.8 % (36.0-66.0); PLATELET COUNT, AUTOMATED 194 10^3/uL (150-450); RED BLOOD COUNT 2.93 10^6/uL (4.00-5.40); WHITE BLOOD COUNT 7.5 10^3/uL (4.0-10.0)
[2022-02-23 19:53] LABS: INR 1.22; PROTHROMBIN TIME 15.8 SECONDS (12.7-14.5)
[2022-02-23 19:54] LABS: PARTIAL THROMBOPLASTIN TIME 45.4 SECONDS (25.9-37.0)
[2022-02-23 19:56] LABS: D-DIMER QUANT 2227.94 ng/ml (<500)
[2022-02-23 20:00] VITALS: O2SAT 96
[2022-02-23 20:04] VITALS: BP 103/51
[2022-02-23] MEDS ORDERED: EMLA CREAM 5GM TUBE (LIDOCAINE/PRILOCAINE) TOP SCH (20:20)
[2022-02-23] MEDS ORDERED: GLUCAGON INJ 1MG VIAL SC PRN (20:20)
[2022-02-23] MEDS ORDERED: GLUCOSE 4GM CHEW TABLET PO PRN (20:20)
[2022-02-23] MEDS ORDERED: DEXTROSE 50% 50 ML SYRINGE IV PRN (20:20)
[2022-02-23 20:55] LABS: ALBUMIN 2.8 GM/DL (3.2-5.2); ALT/SGPT 39 U/L (12-78); BILIRUBIN,DIRECT 0.1 MG/DL (0.0-0.2); BILIRUBIN,TOTAL 0.4 MG/DL (0.2-1.0); BLOOD UREA NITROGEN 73 MG/DL (7-18); CALCIUM LEVEL 8.5 MG/DL (8.8-10.2); CARBON DIOXIDE LEVEL 25 MEQ/L (21-32); CHLORIDE LEVEL 98 MEQ/L (98-107); CREATININE FOR GFR 9.42 MG/DL (0.55-1.30); FERRITIN 3262 NG/ML (8-252); GLOMERULAR FILTRATION RATE 4.2 (>32); GLUCOSE, FASTING 176 MG/DL (70-100); LDH LACTATE DEHYDROGENASE 298 U/L (84-246); MAGNESIUM LEVEL 2.4 MG/DL (1.8-2.4); POTASSIUM SERUM 6.1 MEQ/L (3.5-5.1); SODIUM LEVEL 131 MEQ/L (136-145); TOTAL PROTEIN 6.9 GM/DL (6.4-8.2)
[2022-02-23 20:56] LABS: NT-PRO BNP > 175000 PG/ML (<450)
[2022-02-23] MEDS: INSULIN LISPRO (NovoLOG) PER UNIT SC SCH (21:00)
[2022-02-23] MEDS ORDERED: DEXTROSE 50% 50 ML SYRINGE IV STA (21:39)
[2022-02-23] MEDS ORDERED: HumuLIN R (REGULAR) INSULIN (NovoLIN R) **100U/ML** PER UNIT IV STA (21:39)
[2022-02-23] MEDS ORDERED: PATIROMER SORBITEX CALCIUM 8.4 GM POWDER PACKET (VELTASSA) PO ONE (21:40)
[2022-02-23] MEDS ORDERED: INSU100V3 SC (22:53)
[2022-02-23] MEDS ORDERED: REMD100V IV (22:53)
[2022-02-23] MEDS ORDERED: GLUC1INJ11 IM (22:53)
[2022-02-23] MEDS ORDERED: DEXT50IN6 IV (22:53)
[2022-02-23] MEDS ORDERED: ACET-907 PO (22:53)
[2022-02-23] MEDS ORDERED: [UNRECOGNIZED DRUG - CODE] IV (22:53)
[2022-02-23] MEDS ORDERED: HEPARIN SC (22:53)
[2022-02-23] MEDS ORDERED: METO1TAB33 PO (23:28)
[2022-02-23] MEDS ORDERED: OMEP1CAP73 PO (23:28)
[2022-02-23] MEDS ORDERED: RENV2TAB PO (23:28)
[2022-02-23] MEDS ORDERED: ROCA0.5C PO (23:28)
[2022-02-23] MEDS ORDERED: OCUVTAB4 PO (23:28)
[2022-02-23] MEDS ORDERED: ROPI0.253 PO (23:28)
[2022-02-23] MEDS ORDERED: DOCU100C16 PO (23:28)
[2022-02-23] MEDS ORDERED: SPIR-10 PO (23:28)
[2022-02-23] MEDS ORDERED: CINA30TA4 PO (23:28)
[2022-02-23] MEDS ORDERED: NITR4TASL SL (23:28)
[2022-02-23] MEDS ORDERED: HOME MED LIST COMPLETE! XX SCH (23:30)
[2022-02-24] VITALS (10 sets, daily range): BP systolic 103–145; BP diastolic 56–65; O2SAT 92–99
[2022-02-24 03:49] LABS: CALCIUM LEVEL 8.6 MG/DL (8.8-10.2); CREATININE FOR GFR 9.35 MG/DL (0.55-1.30); GLOMERULAR FILTRATION RATE 4.3 (>32); POTASSIUM SERUM 5.6 MEQ/L (3.5-5.1)
[2022-02-24] MEDS: HEPARIN SOD (PORCINE) 5000UNITS/ML 1ML VIAL/SYRINGE SQ SCH ×3 (05:42→23:00)
[2022-02-24] MEDS ORDERED: NITROGLYCERIN 0.4 MG SUBL TABLET SL PRN (05:45)
[2022-02-24 05:58] LABS: BASO % 0.1 % (0.0-1.0); HEMATOCRIT 33.7 % (36.0-47.0); HEMOGLOBIN 10.7 g/dl (12.0-15.5); LYMPH # 1.2 10^3/uL (1.5-5.0); LYMPH % 13.1 % (24.0-44.0); MEAN CORPUSCULAR HEMOGLOBIN 34.9 pg (27.0-33.0); MEAN CORPUSCULAR HGB CONC 31.8 g/dl (32.0-36.5); MEAN CORPUSCULAR VOLUME 109.8 fl (80.0-96.0); MONO % 10.5 % (2.0-8.0); NEUTROPHILS # 7.2 10^3/uL (1.5-8.5); NEUTROPHILS % 75.9 % (36.0-66.0); PLATELET COUNT, AUTOMATED 187 10^3/uL (150-450); RED BLOOD COUNT 3.07 10^6/uL (4.00-5.40); WHITE BLOOD COUNT 9.4 10^3/uL (4.0-10.0)
[2022-02-24 06:32] LABS: ALBUMIN 2.6 GM/DL (3.2-5.2); BILIRUBIN,DIRECT 0.2 MG/DL (0.0-0.2); BILIRUBIN,TOTAL 0.4 MG/DL (0.2-1.0); CALCIUM LEVEL 8.8 MG/DL (8.8-10.2); CREATININE FOR GFR 9.28 MG/DL (0.55-1.30); GLOMERULAR FILTRATION RATE 4.3 (>32); MAGNESIUM LEVEL 2.6 MG/DL (1.8-2.4); POTASSIUM SERUM 5.5 MEQ/L (3.5-5.1); TOTAL PROTEIN 6.5 GM/DL (6.4-8.2)
[2022-02-24] MEDS: LevoFLOXacin 250 MG TABLET PO SCH (06:43)
[2022-02-24] MEDS ORDERED: SODIUM CHLORIDE 0.9% 1000ML IV PRN (07:30)
[2022-02-24] MEDS ORDERED: LIDOCAINE 1% SDV 5ML VIAL SC PRN (07:30)
[2022-02-24] MEDS: DULoxetine 30MG CAPSULE (CYMBALTA) PO SCH (08:46)
[2022-02-24] MEDS: INSULIN LISPRO (NovoLOG) PER UNIT SC SCH ×4 (08:46→23:02)
[2022-02-24] MEDS: CLOPIDOGREL 75 MG TAB PO SCH (08:46)
[2022-02-24] MEDS: dexameTHASONE 4 MG/ML 1ML VIAL (J1100 PER 1MG) IV SCH (08:47)
[2022-02-24] MEDS: OMEPRAZOLE 20MG CAP PO SCH (08:47)
[2022-02-24] MEDS: FAMOTIDINE 20 MG TAB PO SCH ×2 (08:47→23:00)
[2022-02-24] MEDS: ASPIRIN 81MG ENTERIC TABLET PO SCH (08:48)
[2022-02-24] MEDS: FUROSEMIDE 80 MG TAB PO SCH (08:53)
[2022-02-24] MEDS: OCUVITE 1 TAB PO SCH (08:53)
[2022-02-24] MEDS: (RENVELA) SEVELAMER **CARBONate** 800 MG TAB PO SCH ×3 (08:53→17:42)
[2022-02-24] MEDS: SUCROFERRIC OXYHYDROXIDE 500MG CHEW TAB (VELPHORO) PO SCH ×3 (08:53→17:42)
[2022-02-24] MEDS: CARVedilol 6.25 MG TAB PO SCH (09:00)
[2022-02-24] MEDS: SODIUM CHLORIDE 0.9% INJ 10 ML SYR IV SCH (20:00)
[2022-02-24] MEDS: rOPINIRole 0.25 MG TAB(REQUIP) PO SCH (23:00)
[2022-02-24] MEDS: ATORVASTATIN 20 MG TAB PO SCH (23:00)
[2022-02-24] MEDS: LEVEMIR (INSULIN DETEMIR) 1 UNITS/0.01ML SC SCH (23:02)
[2022-02-24] MEDS: REMDESIVIR 100 MG in NS 250 ML IV SCH (23:03)
[2022-02-25 02:00] VITALS: O2SAT 93
[2022-02-25 04:37] VITALS: BP 125/67
[2022-02-25] MEDS: HEPARIN SOD (PORCINE) 5000UNITS/ML 1ML VIAL/SYRINGE SQ SCH ×3 (04:41→21:27)
[2022-02-25] MEDS: LevoFLOXacin 250 MG TABLET PO SCH (04:41)
[2022-02-25] MEDS ORDERED: guaiFENesin DM LIQ 10ML UD PO PRN (05:05)
[2022-02-25] MEDS: ACETAMINOPHEN TAB 650MG DOSE (2X325MG) PO PRN ×2 (06:02→21:27)
[2022-02-25 07:27] LABS: BASO % 0.1 % (0.0-1.0); HEMATOCRIT 33.5 % (36.0-47.0); HEMOGLOBIN 10.6 g/dl (12.0-15.5); LYMPH % 11.8 % (24.0-44.0); MEAN CORPUSCULAR HEMOGLOBIN 34.2 pg (27.0-33.0); MEAN CORPUSCULAR HGB CONC 31.6 g/dl (32.0-36.5); MEAN CORPUSCULAR VOLUME 108.1 fl (80.0-96.0); MONO # 0.8 10^3/uL (0.0-0.8); MONO % 9.9 % (2.0-8.0); NEUTROPHILS # 6.5 10^3/uL (1.5-8.5); NEUTROPHILS % 77.7 % (36.0-66.0); PLATELET COUNT, AUTOMATED 199 10^3/uL (150-450); WHITE BLOOD COUNT 8.4 10^3/uL (4.0-10.0)
[2022-02-25 07:34] LABS: INR 1.19; PROTHROMBIN TIME 15.5 SECONDS (12.7-14.5)
[2022-02-25 07:35] LABS: PARTIAL THROMBOPLASTIN TIME 48.5 SECONDS (25.9-37.0)
[2022-02-25 07:58] LABS: ALBUMIN 2.7 GM/DL (3.2-5.2); BILIRUBIN,DIRECT 0.1 MG/DL (0.0-0.2); BILIRUBIN,TOTAL 0.3 MG/DL (0.2-1.0); CALCIUM LEVEL 8.9 MG/DL (8.8-10.2); CREATININE FOR GFR 6.13 MG/DL (0.55-1.30); GLOMERULAR FILTRATION RATE 6.9 (>32); MAGNESIUM LEVEL 2.4 MG/DL (1.8-2.4); POTASSIUM SERUM 4.5 MEQ/L (3.5-5.1); TOTAL PROTEIN 5.9 GM/DL (6.4-8.2)
[2022-02-25 08:00] VITALS: O2SAT 96
[2022-02-25] MEDS: CARVedilol 6.25 MG TAB PO SCH (09:00)
[2022-02-25] MEDS: INSULIN LISPRO (NovoLOG) PER UNIT SC SCH ×4 (09:35→20:26)
[2022-02-25] MEDS: SUCROFERRIC OXYHYDROXIDE 500MG CHEW TAB (VELPHORO) PO SCH ×3 (09:35→18:08)
[2022-02-25] MEDS: OMEPRAZOLE 20MG CAP PO SCH (09:35)
[2022-02-25] MEDS: DULoxetine 30MG CAPSULE (CYMBALTA) PO SCH (09:36)
[2022-02-25] MEDS: dexameTHASONE 4 MG/ML 1ML VIAL (J1100 PER 1MG) IV SCH (09:36)
[2022-02-25] MEDS: OCUVITE 1 TAB PO SCH (09:36)
[2022-02-25] MEDS: (RENVELA) SEVELAMER **CARBONate** 800 MG TAB PO SCH ×3 (09:36→18:08)
[2022-02-25] MEDS: CLOPIDOGREL 75 MG TAB PO SCH (09:37)
[2022-02-25] MEDS: FUROSEMIDE 80 MG TAB PO SCH (09:37)
[2022-02-25] MEDS: FAMOTIDINE 20 MG TAB PO SCH ×2 (09:37→21:27)
[2022-02-25] MEDS: ASPIRIN 81MG ENTERIC TABLET PO SCH (09:42)
[2022-02-25] MEDS ORDERED: SODIUM CHLORIDE 0.9% 1000ML IV PRN (11:35)
[2022-02-25] MEDS ORDERED: LIDOCAINE 1% SDV 5ML VIAL SC PRN (11:35)
[2022-02-25 12:00] VITALS: O2SAT 96
[2022-02-25 17:00] VITALS: BP 159/67
[2022-02-25] MEDS: CINACALCET 30 MG TAB (SENSIPAR) PO SCH (18:08)
[2022-02-25] MEDS: REMDESIVIR 100 MG in NS 250 ML IV SCH (18:09)
[2022-02-25 20:00] VITALS: BP 155/67; O2SAT 95
[2022-02-25] MEDS: SODIUM CHLORIDE 0.9% INJ 10 ML SYR IV SCH (20:00)
[2022-02-25] MEDS: rOPINIRole 0.25 MG TAB(REQUIP) PO SCH (21:26)
[2022-02-25] MEDS: ATORVASTATIN 20 MG TAB PO SCH (21:26)
[2022-02-25] MEDS: LEVEMIR (INSULIN DETEMIR) 1 UNITS/0.01ML SC SCH (21:27)
[2022-02-26 04:00] VITALS: BP 117/61
[2022-02-26] MEDS: LevoFLOXacin 250 MG TABLET PO SCH (05:18)
[2022-02-26] MEDS: HEPARIN SOD (PORCINE) 5000UNITS/ML 1ML VIAL/SYRINGE SQ SCH ×3 (05:19→20:29)
[2022-02-26 06:22] LABS: BASO % 0.1 % (0.0-1.0); HEMATOCRIT 33.5 % (36.0-47.0); HEMOGLOBIN 10.7 g/dl (12.0-15.5); LYMPH # 1.3 10^3/uL (1.5-5.0); LYMPH % 13.6 % (24.0-44.0); MEAN CORPUSCULAR HEMOGLOBIN 34.7 pg (27.0-33.0); MEAN CORPUSCULAR HGB CONC 31.9 g/dl (32.0-36.5); MEAN CORPUSCULAR VOLUME 108.8 fl (80.0-96.0); MONO # 1.1 10^3/uL (0.0-0.8); MONO % 11.3 % (2.0-8.0); NEUTROPHILS # 7.1 10^3/uL (1.5-8.5); NEUTROPHILS % 74.4 % (36.0-66.0); PLATELET COUNT, AUTOMATED 227 10^3/uL (150-450); RED BLOOD COUNT 3.08 10^6/uL (4.00-5.40); WHITE BLOOD COUNT 9.5 10^3/uL (4.0-10.0)
[2022-02-26 06:42] LABS: CALCIUM LEVEL 8.1 MG/DL (8.8-10.2); CREATININE FOR GFR 4.23 MG/DL (0.55-1.30); GLOMERULAR FILTRATION RATE 10.6 (>32); MAGNESIUM LEVEL 2.3 MG/DL (1.8-2.4); POTASSIUM SERUM 4.8 MEQ/L (3.5-5.1)
[2022-02-26 08:00] VITALS: O2SAT 100
[2022-02-26] MEDS: INSULIN LISPRO (NovoLOG) PER UNIT SC SCH ×4 (08:24→20:30)
[2022-02-26] MEDS: SUCROFERRIC OXYHYDROXIDE 500MG CHEW TAB (VELPHORO) PO SCH ×3 (08:24→18:20)
[2022-02-26] MEDS: (RENVELA) SEVELAMER **CARBONate** 800 MG TAB PO SCH ×3 (08:25→18:20)
[2022-02-26] MEDS: ASPIRIN 81MG ENTERIC TABLET PO SCH (08:25)
[2022-02-26] MEDS: FAMOTIDINE 20 MG TAB PO SCH ×2 (08:25→20:28)
[2022-02-26] MEDS: FUROSEMIDE 80 MG TAB PO SCH (08:25)
[2022-02-26] MEDS: OCUVITE 1 TAB PO SCH (08:25)
[2022-02-26] MEDS: OMEPRAZOLE 20MG CAP PO SCH (08:25)
[2022-02-26] MEDS: dexameTHASONE 4 MG/ML 1ML VIAL (J1100 PER 1MG) IV SCH (08:25)
[2022-02-26] MEDS: CLOPIDOGREL 75 MG TAB PO SCH (08:26)
[2022-02-26] MEDS: DULoxetine 30MG CAPSULE (CYMBALTA) PO SCH (08:26)
[2022-02-26 10:39] VITALS: O2SAT 96
[2022-02-26 14:00] VITALS: BP 153/63
[2022-02-26] MEDS: REMDESIVIR 100 MG in NS 250 ML IV SCH (18:20)
[2022-02-26 20:00] VITALS: BP 149/67; O2SAT 97
[2022-02-26] MEDS: SODIUM CHLORIDE 0.9% INJ 10 ML SYR IV SCH (20:27)
[2022-02-26] MEDS: ATORVASTATIN 20 MG TAB PO SCH (20:29)
[2022-02-26] MEDS: rOPINIRole 0.25 MG TAB(REQUIP) PO SCH (20:29)
[2022-02-26] MEDS: LEVEMIR (INSULIN DETEMIR) 1 UNITS/0.01ML SC SCH (20:29)
[2022-02-27] VITALS: O2SAT 99
[2022-02-27 04:00] VITALS: BP 156/70; O2SAT 95
[2022-02-27] MEDS ORDERED: SODIUM CHLORIDE 0.9% 1000ML IV PRN (05:30)
[2022-02-27] MEDS ORDERED: LIDOCAINE 1% SDV 5ML VIAL SC PRN (05:30)
[2022-02-27] MEDS: HEPARIN SOD (PORCINE) 5000UNITS/ML 1ML VIAL/SYRINGE SQ SCH ×3 (05:37→21:31)
[2022-02-27] MEDS: LevoFLOXacin 250 MG TABLET PO SCH (05:37)
[2022-02-27 07:32] LABS: BASO % 0.1 % (0.0-1.0); EOS % 0.1 % (0.0-3.0); HEMATOCRIT 38.2 % (36.0-47.0); HEMOGLOBIN 12.3 g/dl (12.0-15.5); LYMPH # 1.5 10^3/uL (1.5-5.0); LYMPH % 14.2 % (24.0-44.0); MEAN CORPUSCULAR HEMOGLOBIN 35.1 pg (27.0-33.0); MEAN CORPUSCULAR HGB CONC 32.2 g/dl (32.0-36.5); MEAN CORPUSCULAR VOLUME 109.1 fl (80.0-96.0); MONO # 1.1 10^3/uL (0.0-0.8); MONO % 10.6 % (2.0-8.0); NEUTROPHILS # 7.7 10^3/uL (1.5-8.5); PLATELET COUNT, AUTOMATED 260 10^3/uL (150-450); WHITE BLOOD COUNT 10.4 10^3/uL (4.0-10.0)
[2022-02-27 07:51] LABS: INR 1.08; PROTHROMBIN TIME 14.4 SECONDS (12.7-14.5)
[2022-02-27 07:52] LABS: PARTIAL THROMBOPLASTIN TIME 49.1 SECONDS (25.9-37.0)
[2022-02-27] MEDS: SUCROFERRIC OXYHYDROXIDE 500MG CHEW TAB (VELPHORO) PO SCH ×3 (08:00→17:48)
[2022-02-27] MEDS: (RENVELA) SEVELAMER **CARBONate** 800 MG TAB PO SCH ×3 (08:00→17:48)
[2022-02-27 08:13] LABS: ALBUMIN 2.8 GM/DL (3.2-5.2); BILIRUBIN,DIRECT 0.1 MG/DL (0.0-0.2); BILIRUBIN,TOTAL 0.3 MG/DL (0.2-1.0); CREATININE FOR GFR 5.91 MG/DL (0.55-1.30); GLOMERULAR FILTRATION RATE 7.2 (>32); MAGNESIUM LEVEL 2.4 MG/DL (1.8-2.4); POTASSIUM SERUM 4.5 MEQ/L (3.5-5.1); TOTAL PROTEIN 6.3 GM/DL (6.4-8.2)
[2022-02-27] MEDS: INSULIN LISPRO (NovoLOG) PER UNIT SC SCH ×4 (08:44→20:01)
[2022-02-27] MEDS: ASPIRIN 81MG ENTERIC TABLET PO SCH (08:44)
[2022-02-27] MEDS: dexameTHASONE 4 MG/ML 1ML VIAL (J1100 PER 1MG) IV SCH (08:44)
[2022-02-27] MEDS: OMEPRAZOLE 20MG CAP PO SCH (08:45)
[2022-02-27] MEDS: OCUVITE 1 TAB PO SCH (08:45)
[2022-02-27] MEDS: DULoxetine 30MG CAPSULE (CYMBALTA) PO SCH (08:46)
[2022-02-27] MEDS: FAMOTIDINE 20 MG TAB PO SCH ×2 (08:46→21:31)
[2022-02-27] MEDS: CLOPIDOGREL 75 MG TAB PO SCH (08:46)
[2022-02-27] MEDS: FUROSEMIDE 80 MG TAB PO SCH (08:46)
[2022-02-27] MEDS: CINACALCET 30 MG TAB (SENSIPAR) PO SCH (17:48)
[2022-02-27] MEDS: REMDESIVIR 100 MG in NS 250 ML IV SCH (18:18)
[2022-02-27] MEDS ORDERED: ONDANSETRON 4MG/2ML VIAL IV PRN (19:45)
[2022-02-27] MEDS: SODIUM CHLORIDE 0.9% INJ 10 ML SYR IV SCH (19:49)
[2022-02-27] MEDS: ATORVASTATIN 20 MG TAB PO SCH (21:31)
[2022-02-27] MEDS: rOPINIRole 0.25 MG TAB(REQUIP) PO SCH (21:31)
[2022-02-27] MEDS: LEVEMIR (INSULIN DETEMIR) 1 UNITS/0.01ML SC SCH (21:32)
[2022-02-28] MEDS: HEPARIN SOD (PORCINE) 5000UNITS/ML 1ML VIAL/SYRINGE SQ SCH ×3 (05:52→21:46)
[2022-02-28] MEDS: LevoFLOXacin 250 MG TABLET PO SCH (05:52)
[2022-02-28 06:00] VITALS: BP 134/60
[2022-02-28 07:30] LABS: BASO % 0.1 % (0.0-1.0); EOS % 0.2 % (0.0-3.0); HEMATOCRIT 35.4 % (36.0-47.0); HEMOGLOBIN 11.3 g/dl (12.0-15.5); LYMPH # 1.7 10^3/uL (1.5-5.0); LYMPH % 17.3 % (24.0-44.0); MEAN CORPUSCULAR HEMOGLOBIN 34.9 pg (27.0-33.0); MEAN CORPUSCULAR HGB CONC 31.9 g/dl (32.0-36.5); MEAN CORPUSCULAR VOLUME 109.3 fl (80.0-96.0); MONO # 0.9 10^3/uL (0.0-0.8); MONO % 9.3 % (2.0-8.0); NEUTROPHILS # 7.1 10^3/uL (1.5-8.5); NEUTROPHILS % 72.3 % (36.0-66.0); PLATELET COUNT, AUTOMATED 243 10^3/uL (150-450); RED BLOOD COUNT 3.24 10^6/uL (4.00-5.40); WHITE BLOOD COUNT 9.9 10^3/uL (4.0-10.0)
[2022-02-28] MEDS: INSULIN LISPRO (NovoLOG) PER UNIT SC SCH ×4 (07:30→21:47)
[2022-02-28 07:48] LABS: CALCIUM LEVEL 8.2 MG/DL (8.8-10.2); CREATININE FOR GFR 4.14 MG/DL (0.55-1.30); GLOMERULAR FILTRATION RATE 10.9 (>32); MAGNESIUM LEVEL 2.3 MG/DL (1.8-2.4)
[2022-02-28] MEDS: SUCROFERRIC OXYHYDROXIDE 500MG CHEW TAB (VELPHORO) PO SCH ×3 (08:55→18:07)
[2022-02-28] MEDS: dexameTHASONE 4 MG/ML 1ML VIAL (J1100 PER 1MG) IV SCH (08:55)
[2022-02-28] MEDS: (RENVELA) SEVELAMER **CARBONate** 800 MG TAB PO SCH ×3 (08:55→18:08)
[2022-02-28] MEDS: DULoxetine 30MG CAPSULE (CYMBALTA) PO SCH (08:56)
[2022-02-28] MEDS: FAMOTIDINE 20 MG TAB PO SCH ×2 (08:56→21:46)
[2022-02-28] MEDS: OCUVITE 1 TAB PO SCH (08:56)
[2022-02-28] MEDS: FUROSEMIDE 80 MG TAB PO SCH (08:56)
[2022-02-28] MEDS: ASPIRIN 81MG ENTERIC TABLET PO SCH (08:56)
[2022-02-28] MEDS: OMEPRAZOLE 20MG CAP PO SCH (08:59)
[2022-02-28] MEDS: CLOPIDOGREL 75 MG TAB PO SCH (08:59)
[2022-02-28] MEDS: ACETAMINOPHEN TAB 650MG DOSE (2X325MG) PO PRN (09:02)
[2022-02-28] MEDS: rOPINIRole 0.25 MG TAB(REQUIP) PO SCH (21:45)
[2022-02-28] MEDS: ATORVASTATIN 20 MG TAB PO SCH (21:45)
[2022-02-28] MEDS: LEVEMIR (INSULIN DETEMIR) 1 UNITS/0.01ML SC SCH (21:45)
[2022-03-01 06:00] VITALS: BP 156/70
[2022-03-01] MEDS: HEPARIN SOD (PORCINE) 5000UNITS/ML 1ML VIAL/SYRINGE SQ SCH ×3 (06:46→21:48)
[2022-03-01] MEDS: INSULIN LISPRO (NovoLOG) PER UNIT SC SCH ×4 (07:36→21:49)
[2022-03-01 07:52] LABS: BASO % 0.1 % (0.0-1.0); EOS % 0.3 % (0.0-3.0); HEMATOCRIT 34.1 % (36.0-47.0); HEMOGLOBIN 10.9 g/dl (12.0-15.5); LYMPH # 1.8 10^3/uL (1.5-5.0); LYMPH % 17.9 % (24.0-44.0); MEAN CORPUSCULAR HEMOGLOBIN 35.2 pg (27.0-33.0); MONO % 10.1 % (2.0-8.0); NEUTROPHILS # 7.1 10^3/uL (1.5-8.5); NEUTROPHILS % 69.7 % (36.0-66.0); PLATELET COUNT, AUTOMATED 224 10^3/uL (150-450); WHITE BLOOD COUNT 10.2 10^3/uL (4.0-10.0)
[2022-03-01 08:02] LABS: INR 1.1; PROTHROMBIN TIME 14.6 SECONDS (12.7-14.5)
[2022-03-01 08:04] LABS: PARTIAL THROMBOPLASTIN TIME 57.6 SECONDS (25.9-37.0)
[2022-03-01] MEDS: OCUVITE 1 TAB PO SCH (08:25)
[2022-03-01] MEDS: (RENVELA) SEVELAMER **CARBONate** 800 MG TAB PO SCH ×3 (08:26→18:50)
[2022-03-01] MEDS: ASPIRIN 81MG ENTERIC TABLET PO SCH (08:26)
[2022-03-01] MEDS: OMEPRAZOLE 20MG CAP PO SCH (08:26)
[2022-03-01] MEDS: dexameTHASONE 4 MG/ML 1ML VIAL (J1100 PER 1MG) IV SCH (08:26)
[2022-03-01] MEDS: SUCROFERRIC OXYHYDROXIDE 500MG CHEW TAB (VELPHORO) PO SCH ×3 (08:26→18:50)
[2022-03-01] MEDS: CLOPIDOGREL 75 MG TAB PO SCH (08:27)
[2022-03-01] MEDS: FUROSEMIDE 80 MG TAB PO SCH (08:27)
[2022-03-01] MEDS: FAMOTIDINE 20 MG TAB PO SCH ×2 (08:27→21:50)
[2022-03-01] MEDS: DULoxetine 30MG CAPSULE (CYMBALTA) PO SCH (08:27)
[2022-03-01 08:39] LABS: ALBUMIN 2.5 GM/DL (3.2-5.2); BILIRUBIN,DIRECT 0.1 MG/DL (0.0-0.2); BILIRUBIN,TOTAL 0.3 MG/DL (0.2-1.0); CALCIUM LEVEL 8.7 MG/DL (8.8-10.2); CREATININE FOR GFR 5.77 MG/DL (0.55-1.30); GLOMERULAR FILTRATION RATE 7.4 (>32); MAGNESIUM LEVEL 2.4 MG/DL (1.8-2.4); POTASSIUM SERUM 4.3 MEQ/L (3.5-5.1); TOTAL PROTEIN 5.6 GM/DL (6.4-8.2)
[2022-03-01] MEDS: LEVEMIR (INSULIN DETEMIR) 1 UNITS/0.01ML SC SCH (21:49)
[2022-03-01] MEDS: ATORVASTATIN 20 MG TAB PO SCH (21:50)
[2022-03-01] MEDS: rOPINIRole 0.25 MG TAB(REQUIP) PO SCH (21:50)
[2022-03-02 05:00] VITALS: BP 142/78
[2022-03-02] MEDS ORDERED: MOM 30ML SUSPENSION UDC PO PRN (05:30)
[2022-03-02] MEDS ORDERED: ACETAMINOPHEN 500 MG TAB PO ONE (05:30)
[2022-03-02] MEDS: ACETAMINOPHEN TAB 650MG DOSE (2X325MG) PO PRN ×2 (05:41→15:39)
[2022-03-02] MEDS: HEPARIN SOD (PORCINE) 5000UNITS/ML 1ML VIAL/SYRINGE SQ SCH ×3 (05:41→21:09)
[2022-03-02] MEDS: INSULIN LISPRO (NovoLOG) PER UNIT SC SCH ×4 (07:30→21:00)
[2022-03-02] MEDS: (RENVELA) SEVELAMER **CARBONate** 800 MG TAB PO SCH (07:43)
[2022-03-02] MEDS: SUCROFERRIC OXYHYDROXIDE 500MG CHEW TAB (VELPHORO) PO SCH ×3 (07:43→17:41)
[2022-03-02] MEDS: FAMOTIDINE 20 MG TAB PO SCH (07:44)
[2022-03-02] MEDS: OCUVITE 1 TAB PO SCH (07:44)
[2022-03-02] MEDS: ASPIRIN 81MG ENTERIC TABLET PO SCH (07:44)
[2022-03-02] MEDS: OMEPRAZOLE 20MG CAP PO SCH (07:45)
[2022-03-02] MEDS: DULoxetine 30MG CAPSULE (CYMBALTA) PO SCH (07:45)
[2022-03-02] MEDS: FUROSEMIDE 80 MG TAB PO SCH (07:46)
[2022-03-02] MEDS: CLOPIDOGREL 75 MG TAB PO SCH (07:46)
[2022-03-02] MEDS: dexameTHASONE 4 MG/ML 1ML VIAL (J1100 PER 1MG) IV SCH (07:47)
[2022-03-02 08:12] LABS: BASO % 0.3 % (0.0-1.0); EOS # 0.1 10^3/uL (0.0-0.5); EOS % 0.7 % (0.0-3.0); LYMPH % 17.7 % (24.0-44.0); MEAN CORPUSCULAR HEMOGLOBIN 35.1 pg (27.0-33.0); MEAN CORPUSCULAR HGB CONC 32.4 g/dl (32.0-36.5); MEAN CORPUSCULAR VOLUME 108.6 fl (80.0-96.0); MONO # 1.1 10^3/uL (0.0-0.8); MONO % 10.1 % (2.0-8.0); NEUTROPHILS # 7.6 10^3/uL (1.5-8.5); NEUTROPHILS % 68.5 % (36.0-66.0); PLATELET COUNT, AUTOMATED 235 10^3/uL (150-450); RED BLOOD COUNT 3.13 10^6/uL (4.00-5.40)
[2022-03-02 08:39] LABS: CALCIUM LEVEL 9.1 MG/DL (8.8-10.2); CREATININE FOR GFR 7.08 MG/DL (0.55-1.30); GLOMERULAR FILTRATION RATE 5.9 (>32); MAGNESIUM LEVEL 2.6 MG/DL (1.8-2.4); POTASSIUM SERUM 4.2 MEQ/L (3.5-5.1)
[2022-03-02] MEDS ORDERED: LIDOCAINE 1% SDV 5ML VIAL SC PRN (11:40)
[2022-03-02] MEDS ORDERED: SODIUM CHLORIDE 0.9% 1000ML IV PRN (11:40)
[2022-03-02] MEDS: MIRALAX *UNIT DOSE* 17GM PACKET PO PRN (15:38)
[2022-03-02] MEDS: CINACALCET 30 MG TAB (SENSIPAR) PO SCH (17:40)
[2022-03-02] MEDS: rOPINIRole 0.25 MG TAB(REQUIP) PO SCH (21:08)
[2022-03-02] MEDS: ATORVASTATIN 20 MG TAB PO SCH (21:08)
[2022-03-02] MEDS: LEVEMIR (INSULIN DETEMIR) 1 UNITS/0.01ML SC SCH (21:09)
[2022-03-03 04:17] VITALS: BP 150/67
[2022-03-03] MEDS: HEPARIN SOD (PORCINE) 5000UNITS/ML 1ML VIAL/SYRINGE SQ SCH ×3 (04:45→21:00)
[2022-03-03] MEDS: ACETAMINOPHEN TAB 650MG DOSE (2X325MG) PO PRN (05:48)
[2022-03-03] MEDS: INSULIN LISPRO (NovoLOG) PER UNIT SC SCH ×4 (07:30→20:36)
[2022-03-03] MEDS: OCUVITE 1 TAB PO SCH (09:58)
[2022-03-03] MEDS: FAMOTIDINE 20 MG TAB PO SCH (09:59)
[2022-03-03] MEDS: FUROSEMIDE 80 MG TAB PO SCH (09:59)
[2022-03-03] MEDS: SUCROFERRIC OXYHYDROXIDE 500MG CHEW TAB (VELPHORO) PO SCH ×3 (09:59→17:53)
[2022-03-03] MEDS: DULoxetine 30MG CAPSULE (CYMBALTA) PO SCH (09:59)
[2022-03-03] MEDS: ASPIRIN 81MG ENTERIC TABLET PO SCH (09:59)
[2022-03-03] MEDS: OMEPRAZOLE 20MG CAP PO SCH (09:59)
[2022-03-03] MEDS: CLOPIDOGREL 75 MG TAB PO SCH (09:59)
[2022-03-03] MEDS: dexameTHASONE 4 MG/ML 1ML VIAL (J1100 PER 1MG) IV SCH (10:00)
[2022-03-03] MEDS ORDERED: PILL CUTTER 1 EACH XX PRN (10:10)
[2022-03-03] MEDS: LEVEMIR (INSULIN DETEMIR) 1 UNITS/0.01ML SC SCH (21:00)
[2022-03-03] MEDS: rOPINIRole 0.25 MG TAB(REQUIP) PO SCH (21:00)
[2022-03-03] MEDS: ATORVASTATIN 20 MG TAB PO SCH (21:00)
[2022-03-04 04:00] VITALS: BP 151/70
[2022-03-04] MEDS: HEPARIN SOD (PORCINE) 5000UNITS/ML 1ML VIAL/SYRINGE SQ SCH ×3 (05:05→21:28)
[2022-03-04] MEDS ORDERED: SODIUM CHLORIDE 0.9% 1000ML IV PRN (06:00)
[2022-03-04] MEDS ORDERED: LIDOCAINE 1% SDV 5ML VIAL SC PRN (06:00)
[2022-03-04] MEDS: INSULIN LISPRO (NovoLOG) PER UNIT SC SCH ×4 (07:30→20:24)
[2022-03-04] MEDS: OMEPRAZOLE 20MG CAP PO SCH (09:11)
[2022-03-04] MEDS: SUCROFERRIC OXYHYDROXIDE 500MG CHEW TAB (VELPHORO) PO SCH ×3 (09:11→18:21)
[2022-03-04] MEDS: ASPIRIN 81MG ENTERIC TABLET PO SCH (09:11)
[2022-03-04] MEDS: OCUVITE 1 TAB PO SCH (09:11)
[2022-03-04] MEDS: CLOPIDOGREL 75 MG TAB PO SCH (09:11)
[2022-03-04] MEDS: FAMOTIDINE 20 MG TAB PO SCH (09:11)
[2022-03-04] MEDS: DULoxetine 30MG CAPSULE (CYMBALTA) PO SCH (09:12)
[2022-03-04] MEDS: FUROSEMIDE 80 MG TAB PO SCH (09:12)
[2022-03-04] MEDS: MIRALAX *UNIT DOSE* 17GM PACKET PO PRN (09:23)
[2022-03-04] MEDS: CINACALCET 30 MG TAB (SENSIPAR) PO SCH (18:21)
[2022-03-04] MEDS: rOPINIRole 0.25 MG TAB(REQUIP) PO SCH (21:28)
[2022-03-04] MEDS: ATORVASTATIN 20 MG TAB PO SCH (21:28)
[2022-03-04] MEDS: LEVEMIR (INSULIN DETEMIR) 1 UNITS/0.01ML SC SCH (21:29)
[2022-03-04] MEDS: ACETAMINOPHEN TAB 650MG DOSE (2X325MG) PO PRN (22:00)
[2022-03-05 05:17] VITALS: BP 156/67
[2022-03-05] MEDS: HEPARIN SOD (PORCINE) 5000UNITS/ML 1ML VIAL/SYRINGE SQ SCH ×3 (05:17→21:23)
[2022-03-05] MEDS: INSULIN LISPRO (NovoLOG) PER UNIT SC SCH ×4 (07:30→20:12)
[2022-03-05] MEDS: DULoxetine 30MG CAPSULE (CYMBALTA) PO SCH (08:30)
[2022-03-05] MEDS: FAMOTIDINE 20 MG TAB PO SCH (08:30)
[2022-03-05] MEDS: OMEPRAZOLE 20MG CAP PO SCH (08:30)
[2022-03-05] MEDS: SUCROFERRIC OXYHYDROXIDE 500MG CHEW TAB (VELPHORO) PO SCH ×3 (08:30→17:19)
[2022-03-05] MEDS: OCUVITE 1 TAB PO SCH (08:30)
[2022-03-05] MEDS: MIRALAX *UNIT DOSE* 17GM PACKET PO PRN (08:30)
[2022-03-05] MEDS: ASPIRIN 81MG ENTERIC TABLET PO SCH (08:30)
[2022-03-05] MEDS: CLOPIDOGREL 75 MG TAB PO SCH (08:31)
[2022-03-05] MEDS: FUROSEMIDE 80 MG TAB PO SCH (08:32)
[2022-03-05] MEDS ORDERED: LEVEMIR (INSULIN DETEMIR) 1 UNITS/0.01ML SC SCH (21:00)
[2022-03-05] MEDS: rOPINIRole 0.25 MG TAB(REQUIP) PO SCH (21:23)
[2022-03-05] MEDS: ATORVASTATIN 20 MG TAB PO SCH (21:23)
[2022-03-06 04:12] VITALS: BP 162/71
[2022-03-06] MEDS: HEPARIN SOD (PORCINE) 5000UNITS/ML 1ML VIAL/SYRINGE SQ SCH ×3 (05:08→20:35)
[2022-03-06] MEDS ORDERED: SODIUM CHLORIDE 0.9% 1000ML IV PRN (06:00)
[2022-03-06] MEDS ORDERED: LIDOCAINE 1% SDV 5ML VIAL SC PRN (06:00)
[2022-03-06] MEDS: SUCROFERRIC OXYHYDROXIDE 500MG CHEW TAB (VELPHORO) PO SCH ×3 (06:44→17:47)
[2022-03-06] MEDS: INSULIN LISPRO (NovoLOG) PER UNIT SC SCH ×4 (06:45→20:29)
[2022-03-06] MEDS: ASPIRIN 81MG ENTERIC TABLET PO SCH (08:45)
[2022-03-06] MEDS: OMEPRAZOLE 20MG CAP PO SCH (08:45)
[2022-03-06] MEDS: CLOPIDOGREL 75 MG TAB PO SCH (08:45)
[2022-03-06] MEDS: MIRALAX *UNIT DOSE* 17GM PACKET PO PRN (08:46)
[2022-03-06] MEDS: FUROSEMIDE 80 MG TAB PO SCH (08:46)
[2022-03-06] MEDS: DULoxetine 30MG CAPSULE (CYMBALTA) PO SCH (08:46)
[2022-03-06] MEDS: OCUVITE 1 TAB PO SCH (08:46)
[2022-03-06] MEDS: FAMOTIDINE 20 MG TAB PO SCH (08:46)
[2022-03-06] MEDS: DOCUSATE SODIUM 100MG CAPSULE PO SCH ×2 (10:15→20:34)
[2022-03-06] MEDS ORDERED: SORBITOL 70% 30ML UNIT DOSE CUP PO ONE (12:00)
[2022-03-06] MEDS: CINACALCET 30 MG TAB (SENSIPAR) PO SCH (17:47)
[2022-03-06] MEDS ORDERED: MOM 30ML SUSPENSION UDC PO ONE (20:10)
[2022-03-06] MEDS: LEVEMIR (INSULIN DETEMIR) 1 UNITS/0.01ML SC SCH (20:29)
[2022-03-06] MEDS: ATORVASTATIN 20 MG TAB PO SCH (20:34)
[2022-03-06] MEDS: rOPINIRole 0.25 MG TAB(REQUIP) PO SCH (20:34)
[2022-03-07] MEDS: HEPARIN SOD (PORCINE) 5000UNITS/ML 1ML VIAL/SYRINGE SQ SCH ×3 (05:20→22:00)
[2022-03-07 05:26] VITALS: BP 149/63
[2022-03-07] MEDS: FUROSEMIDE 80 MG TAB PO SCH (08:32)
[2022-03-07] MEDS: OCUVITE 1 TAB PO SCH (08:32)
[2022-03-07] MEDS: MIRALAX *UNIT DOSE* 17GM PACKET PO SCH (08:32)
[2022-03-07] MEDS: OMEPRAZOLE 20MG CAP PO SCH (08:33)
[2022-03-07] MEDS: SUCROFERRIC OXYHYDROXIDE 500MG CHEW TAB (VELPHORO) PO SCH ×3 (08:33→17:52)
[2022-03-07] MEDS: FAMOTIDINE 20 MG TAB PO SCH (08:33)
[2022-03-07] MEDS: CLOPIDOGREL 75 MG TAB PO SCH (08:33)
[2022-03-07] MEDS: DOCUSATE SODIUM 100MG CAPSULE PO SCH ×2 (08:33→22:01)
[2022-03-07] MEDS: ASPIRIN 81MG ENTERIC TABLET PO SCH (08:33)
[2022-03-07] MEDS: DULoxetine 30MG CAPSULE (CYMBALTA) PO SCH (08:33)
[2022-03-07] MEDS: INSULIN LISPRO (NovoLOG) PER UNIT SC SCH ×4 (08:34→22:02)
[2022-03-07 08:52] LABS: BASO % 0.1 % (0.0-1.0); EOS # 0.1 10^3/uL (0.0-0.5); EOS % 0.9 % (0.0-3.0); HEMATOCRIT 37.9 % (36.0-47.0); HEMOGLOBIN 12.4 g/dl (12.0-15.5); LYMPH # 1.8 10^3/uL (1.5-5.0); LYMPH % 17.8 % (24.0-44.0); MEAN CORPUSCULAR HEMOGLOBIN 35.1 pg (27.0-33.0); MEAN CORPUSCULAR HGB CONC 32.7 g/dl (32.0-36.5); MEAN CORPUSCULAR VOLUME 107.4 fl (80.0-96.0); MONO # 1.5 10^3/uL (0.0-0.8); MONO % 14.5 % (2.0-8.0); NEUTROPHILS # 6.8 10^3/uL (1.5-8.5); NEUTROPHILS % 66.2 % (36.0-66.0); PLATELET COUNT, AUTOMATED 188 10^3/uL (150-450); RED BLOOD COUNT 3.53 10^6/uL (4.00-5.40); WHITE BLOOD COUNT 10.3 10^3/uL (4.0-10.0)
[2022-03-07 09:14] LABS: CALCIUM LEVEL 9.1 MG/DL (8.8-10.2); CREATININE FOR GFR 4.65 MG/DL (0.55-1.30); GLOMERULAR FILTRATION RATE 9.5 (>32); MAGNESIUM LEVEL 2.6 MG/DL (1.8-2.4); POTASSIUM SERUM 4.2 MEQ/L (3.5-5.1)
[2022-03-07 09:30] LABS: HEMOGLOBIN A1c 6.5 %
[2022-03-07] MEDS ORDERED: ONDANSETRON 4MG ORAL DISINTEGRATING TAB PO PRN (09:40)
[2022-03-07 16:00] VITALS: BP 118/69
[2022-03-07] MEDS: rOPINIRole 0.25 MG TAB(REQUIP) PO SCH (21:58)
[2022-03-07] MEDS: PREPARATION H OINTMENT (HEMORRHOID) PR PRN (21:59)
[2022-03-07] MEDS: ATORVASTATIN 20 MG TAB PO SCH (22:00)
[2022-03-07] MEDS: LEVEMIR (INSULIN DETEMIR) 1 UNITS/0.01ML SC SCH (22:01)
[2022-03-08 05:14] VITALS: BP 153/66
[2022-03-08] MEDS: PREPARATION H OINTMENT (HEMORRHOID) PR PRN (05:19)
[2022-03-08] MEDS: HEPARIN SOD (PORCINE) 5000UNITS/ML 1ML VIAL/SYRINGE SQ SCH ×3 (05:20→20:56)
[2022-03-08] MEDS: SUCROFERRIC OXYHYDROXIDE 500MG CHEW TAB (VELPHORO) PO SCH ×3 (07:56→17:22)
[2022-03-08] MEDS: INSULIN LISPRO (NovoLOG) PER UNIT SC SCH ×4 (07:56→20:05)
[2022-03-08] MEDS: OCUVITE 1 TAB PO SCH (07:57)
[2022-03-08] MEDS: DOCUSATE SODIUM 100MG CAPSULE PO SCH ×2 (07:57→20:57)
[2022-03-08] MEDS: FAMOTIDINE 20 MG TAB PO SCH (07:58)
[2022-03-08] MEDS: OMEPRAZOLE 20MG CAP PO SCH (07:58)
[2022-03-08] MEDS: CLOPIDOGREL 75 MG TAB PO SCH (07:59)
[2022-03-08] MEDS: DULoxetine 30MG CAPSULE (CYMBALTA) PO SCH (07:59)
[2022-03-08] MEDS: ASPIRIN 81MG ENTERIC TABLET PO SCH (07:59)
[2022-03-08] MEDS: FUROSEMIDE 80 MG TAB PO SCH (07:59)
[2022-03-08] MEDS: MIRALAX *UNIT DOSE* 17GM PACKET PO SCH (08:12)
[2022-03-08] MEDS: LEVEMIR (INSULIN DETEMIR) 1 UNITS/0.01ML SC SCH (20:06)
[2022-03-08] MEDS: rOPINIRole 0.25 MG TAB(REQUIP) PO SCH (20:56)
[2022-03-08] MEDS: ATORVASTATIN 20 MG TAB PO SCH (20:56)
[2022-03-09 04:10] VITALS: BP_SYST 160; BP_SYST 168; BP_DIAS 70; BP_DIAS 72
[2022-03-09] MEDS: PREPARATION H OINTMENT (HEMORRHOID) PR PRN ×2 (05:23→18:36)
[2022-03-09] MEDS: HEPARIN SOD (PORCINE) 5000UNITS/ML 1ML VIAL/SYRINGE SQ SCH ×3 (05:23→21:04)
[2022-03-09] MEDS ORDERED: SODIUM CHLORIDE 0.9% 1000ML IV PRN (08:25)
[2022-03-09] MEDS ORDERED: LIDOCAINE 1% SDV 5ML VIAL SC PRN (08:25)
[2022-03-09] MEDS: INSULIN LISPRO (NovoLOG) PER UNIT SC SCH ×4 (08:48→21:00)
[2022-03-09] MEDS: SUCROFERRIC OXYHYDROXIDE 500MG CHEW TAB (VELPHORO) PO SCH ×3 (08:48→18:00)
[2022-03-09] MEDS: DULoxetine 30MG CAPSULE (CYMBALTA) PO SCH (08:49)
[2022-03-09] MEDS: OCUVITE 1 TAB PO SCH (08:49)
[2022-03-09] MEDS: ASPIRIN 81MG ENTERIC TABLET PO SCH (08:49)
[2022-03-09] MEDS: FAMOTIDINE 20 MG TAB PO SCH (08:49)
[2022-03-09] MEDS: OMEPRAZOLE 20MG CAP PO SCH (08:49)
[2022-03-09] MEDS: CLOPIDOGREL 75 MG TAB PO SCH (08:49)
[2022-03-09] MEDS: DOCUSATE SODIUM 100MG CAPSULE PO SCH ×2 (08:49→21:03)
[2022-03-09] MEDS: FUROSEMIDE 80 MG TAB PO SCH (08:50)
[2022-03-09 12:00] VITALS: BP 140/65
[2022-03-09] MEDS: CINACALCET 30 MG TAB (SENSIPAR) PO SCH (18:35)
[2022-03-09] MEDS: LEVEMIR (INSULIN DETEMIR) 1 UNITS/0.01ML SC SCH (21:00)
[2022-03-09] MEDS: rOPINIRole 0.25 MG TAB(REQUIP) PO SCH (21:03)
[2022-03-09] MEDS: ATORVASTATIN 20 MG TAB PO SCH (21:03)
[2022-03-09] MEDS: ACETAMINOPHEN TAB 650MG DOSE (2X325MG) PO PRN (21:04)
[2022-03-10] MEDS: ACETAMINOPHEN TAB 650MG DOSE (2X325MG) PO PRN (04:47)
[2022-03-10] MEDS: PREPARATION H OINTMENT (HEMORRHOID) PR PRN ×4 (04:47→22:56)
[2022-03-10] MEDS: HEPARIN SOD (PORCINE) 5000UNITS/ML 1ML VIAL/SYRINGE SQ SCH ×3 (05:23→20:43)
[2022-03-10 06:00] VITALS: BP 125/58
[2022-03-10] MEDS: MIRALAX *UNIT DOSE* 17GM PACKET PO PRN (08:25)
[2022-03-10] MEDS: DOCUSATE SODIUM 100MG CAPSULE PO SCH ×2 (08:26→20:42)
[2022-03-10] MEDS: OCUVITE 1 TAB PO SCH (08:26)
[2022-03-10] MEDS: ASPIRIN 81MG ENTERIC TABLET PO SCH (08:26)
[2022-03-10] MEDS: DULoxetine 30MG CAPSULE (CYMBALTA) PO SCH (08:26)
[2022-03-10] MEDS: INSULIN LISPRO (NovoLOG) PER UNIT SC SCH ×4 (08:26→20:09)
[2022-03-10] MEDS: FAMOTIDINE 20 MG TAB PO SCH (08:27)
[2022-03-10] MEDS: OMEPRAZOLE 20MG CAP PO SCH (08:27)
[2022-03-10] MEDS: SUCROFERRIC OXYHYDROXIDE 500MG CHEW TAB (VELPHORO) PO SCH ×3 (08:27→18:12)
[2022-03-10] MEDS: FUROSEMIDE 80 MG TAB PO SCH (08:28)
[2022-03-10] MEDS: CLOPIDOGREL 75 MG TAB PO SCH (08:28)
[2022-03-10] MEDS: LEVEMIR (INSULIN DETEMIR) 1 UNITS/0.01ML SC SCH (20:09)
[2022-03-10] MEDS: rOPINIRole 0.25 MG TAB(REQUIP) PO SCH (20:42)
[2022-03-10] MEDS: ATORVASTATIN 20 MG TAB PO SCH (20:42)
[2022-03-11 04:00] VITALS: BP 145/65
[2022-03-11] MEDS: ACETAMINOPHEN TAB 650MG DOSE (2X325MG) PO PRN ×3 (05:26→21:27)
[2022-03-11] MEDS: HEPARIN SOD (PORCINE) 5000UNITS/ML 1ML VIAL/SYRINGE SQ SCH ×3 (05:27→21:26)
[2022-03-11] MEDS: PREPARATION H OINTMENT (HEMORRHOID) PR PRN ×2 (05:27→18:24)
[2022-03-11] MEDS ORDERED: SODIUM CHLORIDE 0.9% 1000ML IV PRN (06:40)
[2022-03-11] MEDS ORDERED: LIDOCAINE 1% SDV 5ML VIAL SC PRN (06:40)
[2022-03-11] MEDS: INSULIN LISPRO (NovoLOG) PER UNIT SC SCH ×4 (07:54→21:00)
[2022-03-11] MEDS: FAMOTIDINE 20 MG TAB PO SCH (07:55)
[2022-03-11] MEDS: CLOPIDOGREL 75 MG TAB PO SCH (07:55)
[2022-03-11] MEDS: ASPIRIN 81MG ENTERIC TABLET PO SCH (07:56)
[2022-03-11] MEDS: FUROSEMIDE 80 MG TAB PO SCH (07:56)
[2022-03-11] MEDS: OMEPRAZOLE 20MG CAP PO SCH (07:56)
[2022-03-11] MEDS: OCUVITE 1 TAB PO SCH (07:56)
[2022-03-11] MEDS: SUCROFERRIC OXYHYDROXIDE 500MG CHEW TAB (VELPHORO) PO SCH ×3 (07:56→18:23)
[2022-03-11] MEDS: DULoxetine 30MG CAPSULE (CYMBALTA) PO SCH (07:56)
[2022-03-11] MEDS: DOCUSATE SODIUM 100MG CAPSULE PO SCH ×2 (07:56→21:27)
[2022-03-11] MEDS: CINACALCET 30 MG TAB (SENSIPAR) PO SCH (18:23)
[2022-03-11] MEDS: LEVEMIR (INSULIN DETEMIR) 1 UNITS/0.01ML SC SCH (21:00)
[2022-03-11] MEDS: rOPINIRole 0.25 MG TAB(REQUIP) PO SCH (21:26)
[2022-03-11] MEDS: ATORVASTATIN 20 MG TAB PO SCH (21:27)
[2022-03-12] MEDS: HEPARIN SOD (PORCINE) 5000UNITS/ML 1ML VIAL/SYRINGE SQ SCH (06:13)
[2022-03-12 06:14] VITALS: BP 127/62
[2022-03-12] MEDS: INSULIN LISPRO (NovoLOG) PER UNIT SC SCH ×2 (08:33→12:41)
[2022-03-12] MEDS: CLOPIDOGREL 75 MG TAB PO SCH (08:34)
[2022-03-12] MEDS: DULoxetine 30MG CAPSULE (CYMBALTA) PO SCH (08:34)
[2022-03-12] MEDS: FAMOTIDINE 20 MG TAB PO SCH (08:34)
[2022-03-12] MEDS: DOCUSATE SODIUM 100MG CAPSULE PO SCH (08:35)
[2022-03-12] MEDS: ASPIRIN 81MG ENTERIC TABLET PO SCH (08:35)
[2022-03-12] MEDS: OCUVITE 1 TAB PO SCH (08:35)
[2022-03-12 08:38] VITALS: BP 136/63
[2022-03-12] MEDS: FUROSEMIDE 80 MG TAB PO SCH (08:39)
[2022-03-12] MEDS: MIRALAX *UNIT DOSE* 17GM PACKET PO PRN (08:49)
[2022-03-12] MEDS: OMEPRAZOLE 20MG CAP PO SCH (08:49)
[2022-03-12] MEDS: SUCROFERRIC OXYHYDROXIDE 500MG CHEW TAB (VELPHORO) PO SCH ×2 (08:49→12:30)
[2022-03-12] MEDS ORDERED: ONDA4TAB6 PO (09:47)
[2022-03-12] MEDS ORDERED: PREPOI PR (09:47)
== END 2022-03-12 13:10 | DRG 177 ==
LOC: M 4MAIN 16:25
PROVIDERS: ADMIT Internal Medicine; ATTEND Family Medicine
PROC: 5A1D70Z Performance of Urinary Filtration, Intermittent, Less than 6 Hours Per Day (ICD-10-PCS; principal; 2022-03-02)
DX: U07.1 COVID-19 (principal); N18.6 End stage renal disease; J18.9 Pneumonia, unspecified organism; J96.01 Acute respiratory failure with hypoxia; G93.40 Encephalopathy, unspecified; I13.2 Hypertensive heart and chronic kidney disease with heart failure and with stage 5 chronic kidney disease, or end stage renal disease; N39.0 Urinary tract infection, site not specified; N25.81 Secondary hyperparathyroidism of renal origin; E11.22 Type 2 diabetes mellitus with diabetic chronic kidney disease; Z99.2 Dependence on renal dialysis; E87.5 Hyperkalemia; I25.10 Atherosclerotic heart disease of native coronary artery without angina pectoris; G25.81 Restless legs syndrome; Z95.1 Presence of aortocoronary bypass graft; Z79.899 Other long term (current) drug therapy; Z79.82 Long term (current) use of aspirin; Z88.0 Allergy status to penicillin; Z88.5 Allergy status to narcotic agent; Z88.8 Allergy status to other drugs, medicaments and biological substances; Z87.891 Personal history of nicotine dependence; F03.90 Unspecified dementia, unspecified severity, without behavioral disturbance, psychotic disturbance, mood disturbance, and anxiety; I50.9 Heart failure, unspecified; E78.5 Hyperlipidemia, unspecified; K21.9 Gastro-esophageal reflux disease without esophagitis; D64.9 Anemia, unspecified

== ENCOUNTER → 2022-04-25 | Outpatient (REF) ==
[~2022-04-25] MED LIST changes: +ACET-907 PO; +CINA30TA4 PO; +DEXT50IN6 IV; +DOCU100C16 PO; +GLUC1INJ11 IM; +HEPARIN SC; +INSU100V3 SC; +METO1TAB33 PO; +NITR4TASL SL; +OCUVTAB4 PO; +OMEP1CAP73 PO; +ONDA4TAB6 PO; +PREPOI PR; +REMD100V IV; +ROCA0.5C PO; +ROPI0.253 PO; +[UNRECOGNIZED DRUG - CODE] IV
[2022-04-25 02:30] LABS: APPEARANCE, URINE MANUAL TURBID (CLEAR); COLOR, URINE MANUAL RED (YELLOW)
[2022-04-25 02:32] LABS: BILIRUBIN, URINE MANUAL NEGATIVE (NEGATIVE); GLUCOSE, URINE (UA) MANUAL NEGATIVE (NEGATIVE); KETONE, URINE MANUAL NEGATIVE (NEGATIVE); PROTEIN, URINE MANUAL 3+ mg/dL (NEGATIVE); UROBILINOGEN, URINE MANUAL NORMAL (NORMAL)
[2022-04-25 02:33] LABS: BLOOD URINE MANUAL POSITIVE (NEGATIVE); LEUKOCYTE ESTERASE, URINE MAN POSITIVE (NEGATIVE); NITRITE, URINE MANUAL POSITIVE (NEGATIVE)
[2022-04-25 02:35] LABS: RBC, URINE TNTC /hpf (0-3); SQUAMOUS EPITHELIAL CELL URINE SMALL AMOUNT /hpf (SMALL AMT); WBC, URINE TNTC /hpf (0-3)
[2022-04-25 02:36] LABS: BACTERIA, URINE LARGE AMOUNT
[2022-04-25 02:38] LABS: HYALINE CAST, URINE NONE SEEN /lpf (0-1); TRANSITIONAL EPI CELLS, URINE SMALL AMOUNT /hpf
== END ==
PROVIDERS: ATTEND Internal Medicine
DX: R82.998 Other abnormal findings in urine (principal)

== ENCOUNTER → 2022-06-04 | Outpatient (REF) | payer MEDICARE, MEDICAID ==
[~2022-06-04] MED LIST changes: +LEVO1TAB38 PO; -LEVO250T3 PO
[2022-06-04 15:13] LABS: APPEARANCE, URINE MANUAL TURBID (CLEAR); COLOR, URINE MANUAL YELLOW (YELLOW); GLUCOSE, URINE (UA) MANUAL NEGATIVE (NEGATIVE); PROTEIN, URINE MANUAL 3+ mg/dL (NEGATIVE); SPECIFIC GRAVITY,URINE MANUAL 1.015 (1.002-1.035)
[2022-06-04 15:14] LABS: BILIRUBIN, URINE MANUAL NEGATIVE (NEGATIVE); BLOOD URINE MANUAL POSITIVE (NEGATIVE); KETONE, URINE MANUAL NEGATIVE (NEGATIVE); LEUKOCYTE ESTERASE, URINE MAN POSITIVE (NEGATIVE); NITRITE, URINE MANUAL NEGATIVE (NEGATIVE); UROBILINOGEN, URINE MANUAL NORMAL (NORMAL)
[2022-06-04 15:19] LABS: BACTERIA, URINE LARGE AMOUNT; HYALINE CAST, URINE NONE SEEN /lpf (0-1); RBC, URINE NONE SEEN /hpf (0-3); SQUAMOUS EPITHELIAL CELL URINE NONE SEEN /hpf (SMALL AMT); WBC, URINE TNTC /hpf (0-3)
== END ==
PROVIDERS: ATTEND Internal Medicine
DX: N39.0 Urinary tract infection, site not specified (principal)

== ENCOUNTER → 2022-06-19 | Outpatient (REF) | payer MEDICARE, MEDICAID | PROVIDERS: ATTEND Internal Medicine | DX: Z01.89 Encounter for other specified special examinations (principal); Z20.822 Contact with and (suspected) exposure to COVID-19 ==

== ENCOUNTER → 2022-06-22 | Outpatient (REF) | payer MEDICARE, MEDICAID | PROVIDERS: ATTEND Internal Medicine | DX: Z20.822 Contact with and (suspected) exposure to COVID-19 (principal) ==

== ENCOUNTER → 2022-06-24 | Outpatient (REF) | payer MEDICARE, MEDICAID ==
[2022-06-24 12:23] LABS: HEMATOCRIT 33.2 % (36.0-47.0); HEMOGLOBIN 10.3 g/dl (12.0-15.5); MEAN CORPUSCULAR HEMOGLOBIN 34.3 pg (27.0-33.0); MEAN CORPUSCULAR VOLUME 110.7 fl (80.0-96.0); PLATELET COUNT, AUTOMATED 290 10^3/uL (150-450); WHITE BLOOD COUNT 8.3 10^3/uL (4.0-10.0)
[2022-06-24 13:20] LABS: BILIRUBIN,TOTAL 0.4 MG/DL (0.2-1.0); CALCIUM LEVEL 9.3 MG/DL (8.8-10.2); CREATININE FOR GFR 3.97 MG/DL (0.55-1.30); GLOMERULAR FILTRATION RATE 11.5 (>32); POTASSIUM SERUM 4.4 MEQ/L (3.5-5.1); TOTAL PROTEIN 6.6 GM/DL (6.4-8.2)
== END ==
PROVIDERS: ATTEND Internal Medicine
DX: U07.1 COVID-19 (principal); Z79.899 Other long term (current) drug therapy

== ENCOUNTER 2022-07-06 17:20 | Emergency (ER) | payer MEDICARE, MEDICAID ==
[~2022-07-06] VITALS: Ht 154.9 cm; Wt 63.7 kg
[2022-07-06 22:15] VITALS: BP 125/62
== END 2022-07-06 22:26 | disposition home or self-care (01) ==
LOC: M ED 17:20 → EDBD 17:20 → M ED 22:26
DX: T14.8XXA Other injury of unspecified body region, initial encounter (principal); W19.XXXA Unspecified fall, initial encounter; M19.032 Primary osteoarthritis, left wrist; M19.042 Primary osteoarthritis, left hand; I51.9 Heart disease, unspecified; I10 Essential (primary) hypertension; Z98.61 Coronary angioplasty status; Z79.82 Long term (current) use of aspirin; Z79.01 Long term (current) use of anticoagulants; Z79.4 Long term (current) use of insulin; Z79.899 Other long term (current) drug therapy; Z88.0 Allergy status to penicillin; Z88.5 Allergy status to narcotic agent; Z88.1 Allergy status to other antibiotic agents

== ENCOUNTER → 2022-07-06 | Outpatient (REF) | payer MEDICARE, MEDICAID ==
[2022-07-06 11:19] LABS: HEMATOCRIT 31.5 % (36.0-47.0); HEMOGLOBIN 9.9 g/dl (12.0-15.5); MEAN CORPUSCULAR HEMOGLOBIN 34.5 pg (27.0-33.0); MEAN CORPUSCULAR HGB CONC 31.4 g/dl (32.0-36.5); MEAN CORPUSCULAR VOLUME 109.8 fl (80.0-96.0); PLATELET COUNT, AUTOMATED 255 10^3/uL (150-450); RED BLOOD COUNT 2.87 10^6/uL (4.00-5.40); WHITE BLOOD COUNT 11.2 10^3/uL (4.0-10.0)
[2022-07-06 12:23] LABS: CALCIUM LEVEL 8.9 MG/DL (8.8-10.2); CREATININE FOR GFR 5.33 MG/DL (0.55-1.30); GLOMERULAR FILTRATION RATE 8.2 (>32); POTASSIUM SERUM 4.8 MEQ/L (3.5-5.1)
== END ==
PROVIDERS: ATTEND Internal Medicine
DX: Z91.81 History of falling (principal)

== ENCOUNTER 2022-07-26 09:49 | Emergency (ER) | payer MEDICAID, MEDICARE, OTHER ==
[~2022-07-26] VITALS: Ht 167.6 cm; Wt 72.7 kg
[~2022-07-26 09:49] MED LIST changes: -ARTIDRO OU; -BISA10SU27 PR; -FLEEENE12 PR; -GLUC1VIA INJ; -JUVE1POW PO; -MILKSUS3 PO; -OLAN2.5T25 PO; -PRESCAP PO; -REST0.05 OU; -SENN-23 PO; -TRAD5TAB PO
[2022-07-26] MEDS ORDERED: BISA10SU27 PR (10:58)
[2022-07-26] MEDS ORDERED: REST0.05 OU (10:58)
[2022-07-26] MEDS ORDERED: JUVE1POW PO (10:58)
[2022-07-26] MEDS ORDERED: ARTIDRO OU (10:58)
[2022-07-26] MEDS ORDERED: TRAD5TAB PO (10:58)
[2022-07-26] MEDS ORDERED: MIRA3350 PO (10:58)
[2022-07-26] MEDS ORDERED: LIDO1CRE42 TOP (10:58)
[2022-07-26] MEDS ORDERED: FLEEENE12 PR (10:58)
[2022-07-26] MEDS ORDERED: PRESCAP PO (10:58)
[2022-07-26] MEDS ORDERED: SENN-23 PO (10:58)
[2022-07-26] MEDS ORDERED: MILKSUS3 PO (10:58)
[2022-07-26] MEDS ORDERED: OLAN2.5T25 PO (10:58)
[2022-07-26] MEDS ORDERED: GLUC1VIA INJ (10:58)
[2022-07-26] MEDS ORDERED: HOME MED LIST COMPLETE! XX SCH (11:00)
[2022-07-26 14:01] VITALS: BP 187/79
== END 2022-07-26 14:23 | disposition home or self-care (01) ==
LOC: M ED 09:49 → EDBD 09:49 → M ED 14:23
DX: S89.92XA Unspecified injury of left lower leg, initial encounter (principal); W01.0XXA Fall on same level from slipping, tripping and stumbling without subsequent striking against object, initial encounter; M25.562 Pain in left knee; I50.9 Heart failure, unspecified; E11.9 Type 2 diabetes mellitus without complications; I10 Essential (primary) hypertension; N18.6 End stage renal disease; K21.9 Gastro-esophageal reflux disease without esophagitis; Z95.5 Presence of coronary angioplasty implant and graft; Z79.02 Long term (current) use of antithrombotics/antiplatelets; Z79.82 Long term (current) use of aspirin; Z79.84 Long term (current) use of oral hypoglycemic drugs; Z79.899 Other long term (current) drug therapy; Z88.0 Allergy status to penicillin; Z88.5 Allergy status to narcotic agent; Z88.1 Allergy status to other antibiotic agents

== ENCOUNTER → 2022-07-26 | Outpatient (REF) ==
[~2022-07-26] MED LIST changes: +ARTIDRO OU; +BISA10SU27 PR; +FLEEENE12 PR; +GLUC1VIA INJ; +JUVE1POW PO; +MILKSUS3 PO; +OLAN2.5T25 PO; +PRESCAP PO; +REST0.05 OU; +SENN-23 PO; +TRAD5TAB PO
[2022-07-26 08:51] LABS: HEMATOCRIT 26.8 % (36.0-47.0); HEMOGLOBIN 8.2 g/dl (12.0-15.5); MEAN CORPUSCULAR HEMOGLOBIN 32.5 pg (27.0-33.0); MEAN CORPUSCULAR HGB CONC 30.6 g/dl (32.0-36.5); MEAN CORPUSCULAR VOLUME 106.3 fl (80.0-96.0); PLATELET COUNT, AUTOMATED 324 10^3/uL (150-450); RED BLOOD COUNT 2.52 10^6/uL (4.00-5.40); WHITE BLOOD COUNT 11.2 10^3/uL (4.0-10.0)
[2022-07-26 09:24] LABS: ALBUMIN 2.6 GM/DL (3.2-5.2); BILIRUBIN,TOTAL 0.3 MG/DL (0.2-1.0); CALCIUM LEVEL 8.5 MG/DL (8.8-10.2); CREATININE FOR GFR 4.89 MG/DL (0.55-1.30); POTASSIUM SERUM 3.5 MEQ/L (3.5-5.1); TOTAL PROTEIN 6.1 GM/DL (6.4-8.2)
== END ==
PROVIDERS: ATTEND Internal Medicine
DX: U07.1 COVID-19 (principal)

== ENCOUNTER → 2022-07-27 | Outpatient (REF) ==
[~2022-07-27] MED LIST changes: +ARTIDRO OU; +BISA10SU27 PR; +FLEEENE12 PR; +GLUC1VIA INJ; +JUVE1POW PO; +MILKSUS3 PO; +OLAN2.5T25 PO; +PRESCAP PO; +REST0.05 OU; +SENN-23 PO; +TRAD5TAB PO
== END ==
PROVIDERS: ATTEND Internal Medicine
DX: I51.7 Cardiomegaly (principal); J90 Pleural effusion, not elsewhere classified

== ENCOUNTER → 2022-08-01 | Outpatient (REF) | payer MEDICARE | DX: Z01.818 Encounter for other preprocedural examination (principal); Z20.822 Contact with and (suspected) exposure to COVID-19 ==

== ENCOUNTER 2022-08-05 15:58 | Inpatient (IN) | payer MEDICARE ==
[~2022-08-05 15:58] MED LIST changes: +CLOP75TA99 PO; -PLAV1TAB2 PO
[2022-08-05] MEDS ORDERED: NS 500 ML IV ONE (16:15)
[2022-08-05 16:33] LABS: BASO % 0.2 % (0.0-1.0); EOS # 0.1 10^3/uL (0.0-0.5); EOS % 1.1 % (0.0-3.0); HEMATOCRIT 28.4 % (36.0-47.0); HEMOGLOBIN 8.2 g/dl (12.0-15.5); LYMPH # 1.1 10^3/uL (1.5-5.0); LYMPH % 9.5 % (24.0-44.0); MEAN CORPUSCULAR HEMOGLOBIN 30.5 pg (27.0-33.0); MEAN CORPUSCULAR HGB CONC 28.9 g/dl (32.0-36.5); MEAN CORPUSCULAR VOLUME 105.6 fl (80.0-96.0); MONO # 1.4 10^3/uL (0.0-0.8); MONO % 12.2 % (2.0-8.0); NEUTROPHILS # 8.9 10^3/uL (1.5-8.5); NEUTROPHILS % 76.2 % (36.0-66.0); PLATELET COUNT, AUTOMATED 347 10^3/uL (150-450); RED BLOOD COUNT 2.69 10^6/uL (4.00-5.40); WHITE BLOOD COUNT 11.7 10^3/uL (4.0-10.0)
[2022-08-05 17:17] LABS: CREATININE FOR GFR 2.21 MG/DL (0.55-1.30); GLOMERULAR FILTRATION RATE 22.5 (>32); POTASSIUM SERUM 3.9 MEQ/L (3.5-5.1)
[2022-08-05 17:26] LABS: RSV AMPLIFICATION NEGATIVE (NEGATIVE)
[2022-08-05] MEDS ORDERED: DEXTROSE 50% 50 ML SYRINGE IV PRN (17:50)
[2022-08-05] MEDS ORDERED: GLUCOSE 4GM CHEW TABLET PO PRN (17:50)
[2022-08-05] MEDS ORDERED: GLUCAGON INJ 1MG VIAL SC PRN (17:50)
[2022-08-05] MEDS ORDERED: HOME MED LIST COMPLETE! XX SCH (20:00)
[2022-08-05 20:34] VITALS: BP 114/57
[2022-08-05] MEDS ORDERED: ACETAMINOPHEN TAB 650MG DOSE (2X325MG) PO PRN (20:40)
[2022-08-05] MEDS ORDERED: BISACODYL 10 MG SUPP PR PRN (20:40)
[2022-08-05] MEDS: INSULIN LISPRO (NovoLOG) PER UNIT SC SCH (20:51)
[2022-08-05] MEDS ORDERED: CLOPIDOGREL 75 MG TAB PO SCH (21:00)
[2022-08-05] MEDS: HEPARIN SOD (PORCINE) 5000UNITS/ML 1ML VIAL/SYRINGE SC SCH (21:52)
[2022-08-05] MEDS: SENOKOT S TAB PO SCH (21:53)
[2022-08-05] MEDS: FAMOTIDINE 20 MG TAB PO SCH (21:53)
[2022-08-05] MEDS: ATORVASTATIN 20 MG TAB PO SCH (21:53)
[2022-08-05 22:06] VITALS: BP 116/55
[2022-08-05] MEDS ORDERED: SODIUM CHLORIDE 0.9% 1000ML IV ONE (22:30)
[2022-08-05 23:09] VITALS: BP 118/54
[2022-08-06] VITALS (16 sets, daily range): BP systolic 1–130; BP diastolic 42–59
[2022-08-06] MEDS: HEPARIN SOD (PORCINE) 5000UNITS/ML 1ML VIAL/SYRINGE SC SCH (06:00)
[2022-08-06 06:24] LABS: HEMATOCRIT 21.4 % (36.0-47.0); MEAN CORPUSCULAR HEMOGLOBIN 30.1 pg (27.0-33.0); MEAN CORPUSCULAR VOLUME 103.9 fl (80.0-96.0); PLATELET COUNT, AUTOMATED 324 10^3/uL (150-450); RED BLOOD COUNT 2.06 10^6/uL (4.00-5.40); WHITE BLOOD COUNT 14.1 10^3/uL (4.0-10.0)
[2022-08-06 06:27] LABS: HEMOGLOBIN 6.2 g/dl (12.0-15.5)
[2022-08-06 07:02] LABS: CALCIUM LEVEL 8.3 MG/DL (8.8-10.2); CHOLESTEROL RISK RATIO 2.84 (<5); CREATININE FOR GFR 3.09 MG/DL (0.55-1.30); GLOMERULAR FILTRATION RATE 15.3 (>32); POTASSIUM SERUM 3.8 MEQ/L (3.5-5.1)
[2022-08-06] MEDS: INSULIN LISPRO (NovoLOG) PER UNIT SC SCH ×4 (07:30→21:00)
[2022-08-06 08:13] LABS: HEMATOCRIT 21.4 % (36.0-47.0); HEMOGLOBIN 6.3 g/dl (12.0-15.5)
[2022-08-06] MEDS ORDERED: OMEPRAZOLE 20MG CAP PO SCH (09:00)
[2022-08-06] MEDS ORDERED: ASPIRIN 81MG ENTERIC TABLET PO SCH (09:00)
[2022-08-06] MEDS: (RENVELA) SEVELAMER **CARBONate** 800 MG TAB PO SCH ×3 (09:15→17:31)
[2022-08-06] MEDS: SUCROFERRIC OXYHYDROXIDE 500MG CHEW TAB (VELPHORO) PO SCH ×3 (09:15→17:31)
[2022-08-06] MEDS: DOCUSATE SODIUM 100MG CAPSULE PO SCH (09:15)
[2022-08-06] MEDS: FAMOTIDINE 20 MG TAB PO SCH (09:16)
[2022-08-06] MEDS: MIRALAX *UNIT DOSE* 17GM PACKET PO SCH (09:16)
[2022-08-06] MEDS: OCUVITE 1 TAB PO SCH (09:16)
[2022-08-06] MEDS: OLANZapine 2.5MG TABLET PO SCH (10:52)
[2022-08-06] MEDS ORDERED: PANTOPRAZOLE 40MG VIAL IV ONE (12:00)
[2022-08-06 12:05] LABS: HEMATOCRIT 25.4 % (36.0-47.0); HEMOGLOBIN 7.7 g/dl (12.0-15.5); MEAN CORPUSCULAR HEMOGLOBIN 30.8 pg (27.0-33.0); MEAN CORPUSCULAR HGB CONC 30.3 g/dl (32.0-36.5); MEAN CORPUSCULAR VOLUME 101.6 fl (80.0-96.0); PLATELET COUNT, AUTOMATED 318 10^3/uL (150-450); WHITE BLOOD COUNT 14.7 10^3/uL (4.0-10.0)
[2022-08-06 18:49] LABS: HEMATOCRIT 22.8 % (36.0-47.0)
[2022-08-06] MEDS: SUCRALFATE 1 GM TAB PO SCH (21:00)
[2022-08-06] MEDS: SENOKOT S TAB PO SCH (21:00)
[2022-08-06] MEDS: ATORVASTATIN 20 MG TAB PO SCH (21:05)
[2022-08-06] MEDS: PANTOPRAZOLE 40MG VIAL IV SCH (21:06)
[2022-08-07] VITALS: BP 112/51
[2022-08-07 04:00] VITALS: BP 109/52
[2022-08-07] MEDS ORDERED: SODIUM CHLORIDE 0.9% 1000ML IV PRN (06:00)
[2022-08-07] MEDS ORDERED: LIDOCAINE 1% SDV 5ML VIAL SC PRN (06:00)
[2022-08-07 06:16] LABS: HEMATOCRIT 22.3 % (36.0-47.0); MEAN CORPUSCULAR HEMOGLOBIN 31.5 pg (27.0-33.0); MEAN CORPUSCULAR HGB CONC 31.4 g/dl (32.0-36.5); MEAN CORPUSCULAR VOLUME 100.5 fl (80.0-96.0); PLATELET COUNT, AUTOMATED 328 10^3/uL (150-450); RED BLOOD COUNT 2.22 10^6/uL (4.00-5.40); WHITE BLOOD COUNT 13.7 10^3/uL (4.0-10.0)
[2022-08-07 06:43] LABS: CALCIUM LEVEL 8.6 MG/DL (8.8-10.2); CREATININE FOR GFR 4.5 MG/DL (0.55-1.30); GLOMERULAR FILTRATION RATE 9.9 (>32)
[2022-08-07] MEDS: INSULIN LISPRO (NovoLOG) PER UNIT SC SCH (07:30)
[2022-08-07] MEDS: SUCROFERRIC OXYHYDROXIDE 500MG CHEW TAB (VELPHORO) PO SCH ×3 (07:43→18:00)
[2022-08-07] MEDS: (RENVELA) SEVELAMER **CARBONate** 800 MG TAB PO SCH (07:43)
[2022-08-07] MEDS: SUCRALFATE 1 GM TAB PO SCH (08:11)
[2022-08-07 08:20] VITALS: BP 121/83
[2022-08-07] MEDS: OCUVITE 1 TAB PO SCH (08:38)
[2022-08-07] MEDS: MIRALAX *UNIT DOSE* 17GM PACKET PO SCH (08:38)
[2022-08-07] MEDS: DOCUSATE SODIUM 100MG CAPSULE PO SCH (08:38)
[2022-08-07] MEDS: OLANZapine 2.5MG TABLET PO SCH (08:39)
[2022-08-07] MEDS: PANTOPRAZOLE 40MG VIAL IV SCH ×2 (09:15→21:00)
[2022-08-07] MEDS: DARBEPOETIN 100 MCG/0.5 ML *NON-DIALYSIS* SYRINGE (J0881) SC SCH ×2 (11:46→11:51)
[2022-08-07] MEDS ORDERED: SCOPOLAMINE 1MG TRANSDERMAL PATCH TOP PRN (12:30)
[2022-08-07] MEDS ORDERED: MORPHINE 4 MG/ML 1ML VIAL/SYRINGE IV SCH (13:00)
[2022-08-07] MEDS ORDERED: LORazepam 2 MG/ML VIAL IV PRN (13:00)
[2022-08-07] MEDS ORDERED: MORPHINE 4 MG/ML 1ML VIAL/SYRINGE IV PRN (16:20)
[2022-08-07] MEDS: MORPHINE 4 MG/ML 1ML VIAL/SYRINGE IV SCH ×4 (16:20→22:00)
[2022-08-07] MEDS: ATORVASTATIN 20 MG TAB PO SCH (21:00)
[2022-08-07] MEDS: SENOKOT S TAB PO SCH (21:00)
[2022-08-08] MEDS: MORPHINE 4 MG/ML 1ML VIAL/SYRINGE IV SCH ×12 (02:00→22:35)
[2022-08-08 08:00] VITALS: BP 123/66
[2022-08-08] MEDS: OCUVITE 1 TAB PO SCH (08:25)
[2022-08-08] MEDS: PANTOPRAZOLE 40MG VIAL IV SCH (09:47)
[2022-08-09] MEDS: MORPHINE 4 MG/ML 1ML VIAL/SYRINGE IV SCH ×12 (00:35→22:10)
[2022-08-09] MEDS: OCUVITE 1 TAB PO SCH (08:35)
[2022-08-10] MEDS: MORPHINE 4 MG/ML 1ML VIAL/SYRINGE IV SCH ×7 (00:13→11:49)
[2022-08-10] MEDS: OCUVITE 1 TAB PO SCH (07:44)
== END 2022-08-10 13:01 | disposition expired | DRG 64 ==
LOC: M ED 15:58 → EDBD 15:58 → M ED INP 15:59 → M PCU 20:30 → OBSVTOIN 08-06 10:22 → INTOOBSV 08-06 10:26
PROVIDERS: ADMIT Internal Medicine; ATTEND Internal Medicine
PROC: 30233N1 Transfusion of Nonautologous Red Blood Cells into Peripheral Vein, Percutaneous Approach (ICD-10-PCS; principal; 2022-08-06)
DX: I63.539 Cerebral infarction due to unspecified occlusion or stenosis of unspecified posterior cerebral artery (principal); G93.41 Metabolic encephalopathy; N18.6 End stage renal disease; K29.71 Gastritis, unspecified, with bleeding; I13.2 Hypertensive heart and chronic kidney disease with heart failure and with stage 5 chronic kidney disease, or end stage renal disease; I50.32 Chronic diastolic (congestive) heart failure; D62 Acute posthemorrhagic anemia; I25.10 Atherosclerotic heart disease of native coronary artery without angina pectoris; R55 Syncope and collapse; Z95.1 Presence of aortocoronary bypass graft; I95.9 Hypotension, unspecified; Z66 Do not resuscitate; E11.22 Type 2 diabetes mellitus with diabetic chronic kidney disease; J44.9 Chronic obstructive pulmonary disease, unspecified; D63.1 Anemia in chronic kidney disease; E87.8 Other disorders of electrolyte and fluid balance, not elsewhere classified; F20.9 Schizophrenia, unspecified; G25.81 Restless legs syndrome; F03.90 Unspecified dementia, unspecified severity, without behavioral disturbance, psychotic disturbance, mood disturbance, and anxiety; I27.20 Pulmonary hypertension, unspecified; R57.8 Other shock; R57.1 Hypovolemic shock